=== PATIENT | male | born 1955 | race Caucasian/White ===

== ENCOUNTER 2023-01-21 07:07 | Outpatient (OUT) | payer BC, SELFPAY ==
[2023-01-21 07:20] LABS: Basophils Percent Auto 0.3 % (0.2-2.0); Eosinophils Absolute Auto 0.2 10^3/uL (0.0-0.7); Eosinophils Percent Auto 2.6 % (0.9-7.0); Hemoglobin 14.5 g/dL (14.0-18.0); Immature Granulocytes Abs Auto 0.02 10^3/uL (0.00-0.03); Immature Granulocytes Pct Auto 0.3 % (0.0-0.5); Lymphocytes Absolute Auto 1.7 10^3/uL (1.2-3.8); Mean Corpuscular HGB Conc 33.7 g/dL (29.9-35.2); Mean Corpuscular Hemoglobin 31.8 pg (25.9-34.0); Mean Corpuscular Volume 94.3 fL (80.0-94.0); Mean Platelet Volume 8.4 fL (9.5-13.5); Monocytes Absolute Auto 0.8 10^3/uL (0.3-0.8); Monocytes Percent Auto 11.1 % (1.7-12.0); Neutrophils Absolute Auto 4.8 10^3/uL (1.4-6.5); Neutrophils Percent Auto 63.7 % (43.0-75.0); Platelet Count 248 10^3/uL (150-450); Red Blood Count 4.56 10^6/uL (4.70-6.10); Red Cell Distribution Width 13.2 % (11.0-15.0); White Blood Count 7.6 10^3/uL (4.0-11.0)
[2023-01-21 07:32] LABS: Estimated Average Glucose 123 mg/dL; Glycohemoglobin A1C 5.9 % (4.5-6.2)
[2023-01-21 07:41] LABS: Alanine Aminotransferase 45 U/L (16-63); Albumin Globulin Ratio 1.2; Albumin Level 3.8 g/dL (3.4-5.0); Alkaline Phosphatase 73 U/L (46-116); Anion Gap 8.8; Aspartate Amino Transferase 33 U/L (15-37); BUN Creatinine Ratio 16.5; Bilirubin Total 0.5 mg/dL (0.2-1.0); Calcium 8.6 mg/dL (8.5-10.1); Carbon Dioxide 31.6 mmol/L (21.0-32.0); Chloride 103 mmol/L (98-107); Chol HDL Ratio 2.8; Cholesterol 123 mg/dL (<=200); Estimated GFR (African America >60 (>=60); Estimated GFR (Non-African Ame >60 (>=60); Globulin 3.2 g/dL; Glucose 123 mg/dL (74-106); HDL Cholesterol 44 mg/dL (40-60); LDL Cholesterol Calculated 54.8 mg/dL; Potassium 4.4 mmol/L (3.5-5.1); Sodium 139 mmol/L (136-145); Triglycerides 121 mg/dL (<=150); VLDL CHOLESTEROL 24.2 mg/dL
== END 2023-01-21 07:08 | disposition home or self-care (01) ==
LOC: LAB 07:07
PROVIDERS: PCP Internal Medicine; Visit Provider Internal Medicine
DX: E11.9 Type 2 diabetes mellitus without complications (principal); E78.5 Hyperlipidemia, unspecified; E55.9 Vitamin D deficiency, unspecified
CPT/HCPCS: 36415; 80053; 80061; 82306; 83036; 85025

== ENCOUNTER 2023-05-18 07:38 | Outpatient (OUT) | payer MEDICARE, OTHER, SELFPAY ==
[2023-05-18 08:46] LABS: Prostate Specific Antigen Dx 1.25 ng/mL (<=4.00)
== END 2023-05-18 07:39 | disposition home or self-care (01) ==
PROVIDERS: PCP Internal Medicine
DX: C61 Malignant neoplasm of prostate (principal)
CPT/HCPCS: 36415; 84153

== ENCOUNTER 2023-06-12 12:48 | Outpatient (OUT) | payer MEDICARE, OTHER, SELFPAY ==
--- NOTE | 2023-06-12 13:30 | CA_ITS ---
Patient Name: BASILIO PARRA MR#: [id number] : 1955 Exam Date: 06/12/2023 Ordering Doctor: DR BERRY FISHER M.D. ECHOCARDIOGRAM REPORT PROCEDURE: CA ECHO DOPPLER COMPLETE INDICATIONS: Mitral valve regurgitation COMPARISON: None. DESCRIPTION: COMPLETE ECHOCARDIOGRAM Real-time transthoracic echocardiography with 2D, M-mode, spectral and color flow Doppler performed. QUALITY: Technical quality was good. 67 , 215#, BSA 2.09 m2 LEFT VENTRICLE: Normal chamber size. Mildly increased left ventricular wall thickness. LV EF: Global left ventricular systolic function is hyperdynamic; visually estimated ejection fraction is 65 to 70%. No significant wall motion abnormalities. DIASTOLIC: Normal diastolic function. ATRIAL SEPTUM: Visually appears intact. LEFT ATRIUM: Normal chamber size. RIGHT ATRIUM: Normal chamber size. RIGHT VENTRICLE: Normal chamber size. Normal right ventricular systolic function. TRICUSPID VALVE: Normal mobility and thickness. No stenosis with trivial regurgitation. MITRAL VALVE: Mildly thickened with normal mobility. No evidence of mitral valve stenosis. There is no mitral annular calcification. No mitral regurgitation. AORTIC VALVE: Normal aortic valve. No visible sclerosis. Normal leaflet mobility. No evidence of aortic valve stenosis. Trivial aortic regurgitation. AORTIC ROOT: Normal diameter and appearance. PULMONIC VALVE: Normal thickness and mobility. No stenosis. No regurgitation. PERICARDIUM: No evidence of pericardial effusion. IVC: Collapses with inspirations. IVC is normal in size. CONCLUSION: 1. Global left ventricular systolic function is hyperdynamic; visually estimated ejection fraction is 65 to 70% 2. Normal right ventricular size and systolic function 3. Mild increased left ventricular wall thickness 4. Normal diastolic function 5. No significant valvular abnormalities Adult Echocardiography Procedure Report Left Ventricle LVEDD (3.7 - 5.6 cm): 4.75 cm LVESD (2.2 - 4.0 cm): 3.22 cm LVIVS thickness (0.6 - 1.2 cm): 1.27 cm LVPW thickness (0.5 - 1.0 cm): 1.12 cm e': 0.17 m/s E - e': 3.63 LVOT Max Gradient: 2.71 mm[Hg] LVOT Area (cm2): 0.82 m/s Peak Velocity (LVOT): 0.82 m/s Mean Velocity (LVOT): 0.54 m/s LVOT Diameter 2.73 cm Left Atrium LA Volume Index (2D A2C): 27.66 ml/m2 Left Atrium Systolic Dimension: 3.81 cm Mitral Valve MV E to A Ratio: 1, 1.02 Mitral Valve A-Wave Peak Velocity: 0.60 m/s Mitral Valve E-Wave Peak Velocity: 0.61 m/s Right Ventricle Aorta AO Root Diam: 3.68 cm Ascending Ao Diam: 3.61 cm Aortic Valve AoV Area (Peak Con): 3.89 cm2, 3.89 cm2 AoV Area (VTI): 4.40 cm2, 4.40 cm2 Peak Velocity(Antegrade Flow): 1.23 m/s Peak Gradient(Antegrade Flow): 6.09 mm[Hg] Mean Velocity(Antegrade Flow): 0.74 m/s Mean Gradient(Antegrade Flow): 2.67 mm[Hg] Velocity Time Integral: 22.04 cm Tricuspid Valve Pulmonic Valve Peak Velocity: 1.21 m/s Peak Gradient: 5.24 mm[Hg], 6.55 mm[Hg] Right Atrium Right Atrium Systolic Pressure: 27.28 ml, 27.28 ml Dictated by: Berry Fisher M.D. on 06/12/2023 at 16:08 Approved by: Berry Fisher M.D. on 06/12/2023 at 16:12
== END 2023-06-12 12:49 | disposition home or self-care (01) ==
LOC: CARD 12:48
PROVIDERS: PCP Internal Medicine; Visit Provider Internal Medicine Interventional Cardiology
DX: I34.0 Nonrheumatic mitral (valve) insufficiency (principal)
CPT/HCPCS: 93306

== ENCOUNTER 2023-07-30 06:59 | Outpatient (OUT) | payer MEDICARE, OTHER, SELFPAY ==
--- OUTSIDE RECORDS SUMMARY | 2023-07-30 07:02 | XMS_ITS | CCD ---
Author Name Unknown Address [address] [facility] [address] [place] [address] Organization [facility] Care Team Providers Care Atm Servicer Name Role Phone ANNETTE SHAH Unavailable Unavailable ANNETTE SHAH Unavailable Unavailable Erin Minaya Unavailable Unavailable Rei, Erin Unavailable Unavailable , GEORGE Unavailable Unavailable ANNETTE SHAH Primary Care Unavailable ANNETTE SHAH Referring Unavailable ELTAHAWY, EHAB A Admitting Unavailable IVETT, EHAB A Attending Unavailable Annette Shah MD Primary Care Provider Annette Callaway II Unavailable Annette Shah MD Primary Care Provider MD Annette Shah Primary Care Provider MD Annette Callaway II Attending Provider MD Preston Tejada Attending Provider Preston Tejada Unavailable Annette Shah MD Primary Care Provider DR ANNETTE SHAH Admitting Unavailable UMAIR, DR BRYANT Attending Unavailable UMAIR, DR BRYANT Primary Care Unavailable UMAIR, DR BRYANT Consulting Unavailable UMAIR, DR BRYANT Admitting Unavailable UMAIR, DR BRYANT Attending Unavailable UMAIR, DR BRYANT Primary Care Unavailable UMAIR, DR BRYANT Consulting Unavailable MISC, DR BURRELL Admitting Unavailable MISC, DR BURRELL Attending Unavailable UMAIR, DR BRYANT Primary Care Unavailable UMAIR, DR BRYANT Consulting Unavailable MISC, DR BURRELL Admitting Unavailable MISC, DR BURRELL Attending Unavailable UMAIR, DR BRYANT Primary Care Unavailable MISC, DR BURRELL Consulting Unavailable ELTAHAWEsme, DR VANESSA Consulting Unavailable RON MCCORMICK Admitting Unavailable RON MCCORMICK Attending Unavailable UMAIR, DR BRYANT Primary Care Unavailable CLEARWATER, DR KEN Dunlap Consulting Unavailable RON MCCORMICK Consulting Unavailable JACE, RON Admitting Unavailable JACE, RON Attending Unavailable UMAIR, DR BRYANT Primary Care Unavailable SAL, DR CHAPIS Campbell Consulting Unavailable JACE, RON Consulting Unavailable UMAIR, DR BRYANT Admitting Unavailable HILL, DR BRYANT Attending Unavailable HILL, DR BRYANT Primary Care Unavailable HILL, DR BRYANT Consulting Unavailable HILL, DR BRYANT Admitting Unavailable HILL, DR BRYANT Attending Unavailable HILL, DR BRYANT Primary Care Unavailable HILL, DR BRYANT Consulting Unavailable REQUEST, DR CASTILLO LISTED Admitting Unavaila ble REQUEST, DR CASTILLO LISTED Attending Unavaila ble UMAIR, DR BRYANT Primary Care Unavailable REQUEST, DR CASTILLO LISTED Consulting Unavaila Preston Trimble Attending Unavailable Terrell, Preston Lawrence Admitting Unavailable Umair, Annette Primary Care Unavailable JEVON ZAMBRANO Attending Unavailab jean-pierre SHAH, ANNETTE GUZMAN Primary Care Unavailable GIANA PASTRANA Referring Unavailable GIANA PASTRANA Attending Unavailable UMAIR, ANNETTE GUZMAN Primary Care Unavailable IVETT, BERRY Attending Julissa CARDENAS JR., YEIMI Otero Attending Unavaila briaan CARDENAS JR., YEIMI Otero Referring Unavaila Annette Alonzo MD Primary Care Provider [phone] Medications Current Medications Medication Drug Class(es) Dates Sig (Normalized) Sig (Original) acetaminophen 500 mg oral tablet (3 sources) Start: 03-26-2018 take 2 tablets by mouth twice daily Acetaminophen (Acetaminophen Extra Strength) 500 mg Tablet Active 1000 MG PO Twice daily March 26, 2018 12:00am acetaminophen (T ylenol Extra Strength) 500 MG tablet every 6 (six) hours. 0 Active amoxicillin 500 mg oral capsule (1 source) Penicillin-class Antibacterial Start: 11-22-2022 amoxicillin (Amoxil) 500 MG capsule Indications: Prophylactic antibiotic TAKE 4 CAPSULES BY MOUTH 45 MINUTES TO 1 HOUR PRIOR TO DENTAL PROCEDURE 4 capsule 3 11/22/2022 Active ascorbic acid 250 mg chewable tablet (5 sources) Vitamin C Start: 03-24-2020 take 1 tablet by mouth once daily Ascorbic Acid (Vitamin C) (Vitamin C) 250 mg Tablet,Chewable Active 250 MG PO Daily March 24, 2020 12:00am Vitamin C Active Aspirin (3 sources) Platelet Aggregation Inhibitor, Nonsteroidal Anti-inflammatory Drug Aspirin 81 Active atorvastatin 80 mg oral tablet (4 sources) HMG-CoA Reductase Inhibitor take 1 tablet by mouth at bedtime atorvastatin (Lipitor) 80 MG tablet Take 80 mg by mouth at bedtime. 0 Active cholecalciferol 0.05 mg oral tablet (3 sources) Vitamin D Start: 2019 take 1 tablet by mouth once daily Cholecalciferol (Vitamin D3) (Vitamin D3) 50 mcg (2,000 unit) Tablet Active 2000 UNIT PO Daily March 24, 2020 12:00am take [address] [facility] once in the morning Cholecalciferol (Vitamin D) 50 MCG (2000 UT) capsule Take 1 capsule by mouth in the morning. 0 Active chondroitin sulfates 200 mg / glucosamine hydrochloride 250 mg oral tablet (2 sources) Start: 03-24-2020 take 1 tablet by mouth once daily Glucosamine-Chondroitin (Osteo Bi-Flex) 250-200 mg Tablet Active 1 TAB PO Daily March 24, 2020 12:00am diclofenac sodium 75 mg delayed release oral tablet (14 sources) Nonsteroidal Anti-inflammator y Drug Start: 01-09-2023 take 1 tablet by mouth twice daily at mealtime diclofenac (Voltaren) 75 MG EC tablet Indications: Primary generalized (osteo)arthritis TAKE 1 TABLET BY MOUTH WITH FOOD OR MILK TWICE DAILY 180 tablet 3 01/09/2023 Active Start: 04-16-2019 End: 04-09-2020 take 1 tablet by mouth every twelve hours as needed diclofenac, EC, (VOLTAREN) 75 mg EC tablet Take 1 tablet by mouth twice daily as needed. 3 04/16/2019 Active Diclofenac Activ e Comment on above: Take 1 tablet by radha twice daily as needed. docusate sodium 100 mg oral capsule (9 sources) take 1 capsule by mouth in the morning docusate sodium (Colace) 100 MG capsule Take 1 capsule by mouth in the morning and 1 capsule before bedtime. 0 Active Comment on above: Take 100 mg by mouth twice daily. folic acid 1 mg / polysaccharide iron complex 150 mg / vitamin b12 0.025 mg oral capsule (2 sources) Vitamin B12 Start: take 1 capsule by mouth once daily in the morning Iron Ps [id number] Acid (Poly-Iron 150 Forte) 150-25-1 mg-mcg-mg capsule Active 1 CAP PO Every morning March 24, 2020 12:00am iv contrast (will be provided with radiology test) (1 source) Start: End: iv contrast (will be provided with radiology test) MRI Prostate Inject, intravenously, once for 1 dose. No IV access, insert saline lock prior to the beginning of sedation, infusion, injection of imaging exam. Discontinue saline lock post exam. If Pt. has a central line or IVAD, may access for administration according to line specific nursing protocol. Once exam is complete flush line and de-access according to line specific nursing protocol in the MR contrast administration guidelines link. 1 Each 0 05/22/2023 05/23/2023 Active Comment on above: MRI Prostate Inject, intravenously, once for 1 dose. No IV access, insert saline lock prior to the beginning of sedation, infusion, injection of imaging exam. Discontinue saline lock post exam. If Pt. has a central line or IVAD, may access for administration according to line specific nursing protocol. Once exam is complete flush line and de-access according to line specific nursing protocol in the MR contrast administration guidelines link. methocarbamol 750 mg oral tablet (1 source) Muscle Relaxant Start: 023 take 1 tablet by mouth three times daily as needed for muscle spasms methocarbamol (Robaxin) 750 MG tablet Indications: Spasm of muscle of lower back Take 1 tablet (750 mg) by mouth 3 (three) times a day as needed for muscle spasms. 60 tablet 1 03/12/2023 Active 24 hr metoprolol succinate 25 mg extended release oral tablet (4 sources) beta-Adrenergic Gunner take 1 tablet by mouth every twenty-four hours in the morning metoprolol succinate XL (Toprol XL) 25 MG 24 hr tablet Take 25 mg by mouth in the morning. 0 Active take 1 tablet by radha th every twelve hours Metoprolol Tartrate 25 MG 1 tablet with food Orally Twice a day Active Multiple Minerals-Vitamins (Citracal Plus) tablet (1 source) take 1 tablet by mouth in the morning Multiple Minerals-Vitamins (Citracal Plus) tablet Take 1 tablet by mouth in the morning. 0 Active Multivitamin preparation (3 sources) Multivitamin Act prisca Mv,Ca,Tqz-Qxyc-Cu-Lycope ne (Centrum Men) 8 mg iron- 200 mcg-600 mcg Tablet (2 sources) Start: 018 Mv,Ca,Onn-Xoba-Vk-Lycope ne (Centrum Men) 8 mg iron- 200 mcg-600 mcg Tablet Active 1 TAB PO Daily March 26, 2018 12:00am Nut.Tx.Gluc.Intol,Lac-Fr ee,Soy (Glucerna) Liquid (2 sources) Start: Nut.Tx.Gluc.Intol,Lac-Fr ee,Soy (Glucerna) Liquid Active 1 EACH PO Daily March 24, 2020 12:00am omeprazole 20 mg delayed release oral capsule (14 sources) Proton Pump Inhibitor Start: 023 take 1 capsule by mouth once daily omeprazole (PriLOSEC) [address] capsule Indications: Gastroesophageal reflux disease without esophagitis TAKE 1 CAPSULE BY MOUTH EVERY DAY 90 capsule 3 06/10/2023 Active Start: 04-01-2019 take 1 capsule by mo uth once daily omeprazole (PRILOSEC) 20 mg capsule Take 20 mg by mouth once daily. 3 04/01/2019 Active take 2 capsules by m outh every twenty-four hours Omeprazole 20 MG 2 capsules Orally Once a day Active Comment on above: Take 20 mg by mouth once daily. polyethylene glycol 3350 47123 mg powder for oral solution (12 sources) Osmotic Laxative take 17 g by mouth every twenty-four hours as needed polyethylene glycol, PEG, 3350 (MiraLax) 17 GM/SCOOP powder Take 17 g by mouth Daily as needed. 0 Active MiraLax Active Comment on above: Take by mouth once d aily. Semaglutide,0.25 or 0.5MG/DOS, (Ozempic, 0.25 or 0.5 MG/DOSE,) 2 MG/3ML solution pen-injector (1 source) Start: Semaglutide,0.25 or 0.5MG/DOS, (Ozempic, 0.25 or 0.5 MG/DOSE,) 2 MG/3ML solution pen-injector Indications: Type 2 Diabetes Mellitus , one pre filled pen Inject 0.5 mg under the skin 1 (one) time per week 9 mL 3 06/11/2023 Active sennosides, [facility] 8.6 mg oral tablet (2 sources) Start: 018 take 1 tablet by mouth twice daily Sennosides (Senna) 8.6 mg Tablet Active 8.6 MG PO Twice daily January 10, 2018 12:00am sildenafil 100 mg oral tablet (14 sources) Phosphodiesterase 5 Inhibitor Start: 07-31-2 019 take 1 tablet by mouth every twenty-four hours as needed sildenafil (Viagra) 100 MG tablet Take 100 mg by mouth Daily as needed. 0 01/22/2022 Active Comment on above: Take 100 mg by mouth once daily. traMADol hydrochloride 50 mg oral tablet (3 sources) Opioid Agonist take 1 tablet by mouth every six hours traMADol HCl 50 MG 1 tablet as needed Orally every 6 hrs Active triamcinolone acetonide 1 mg/ml topical cream (4 sources) Corticosteroid Start: triamcinolone (Kenalog) 0.1 % cream APPLY TO LOWER LEGS TWICE DAILY UNTIL CLEAR, THEN USE NEEDED FOR ITCH 0 03/27/2022 Active Start: 09-13-2016 Kenalog -40 mg Aug, Vitamin D (3 sources) Vitamin D Active Completed/Discontinued Medications Medication Drug Class(es) Dates Sig (Normalized) Sig (Original) ALPRAZolam 0.25 mg oral tablet (13 sources) Benzodiazepine Start: 07-23-2019 take 1 tablet by mouth once daily ALPRAZolam (XANAX) 0.25 mg tablet Take 1 tablet by mouth once daily. 0 07/23/2019 Active Start: 04-14-2018 take 1 tablet by radha th twice daily Alprazolam (Xanax) 0.25 mg Tablet Active 0.25 MG PO Twice daily April 14, 2018 12:00am Start: 04-15-2017 End: 04-02-2018 take 0.25 mg by mouth twice daily Alprazolam Discontinued 0.25 MG PO Twice daily April 15, 2017 12:00am April 02, 2018 2:56pm take 1 tablet by radha th twice daily as needed for anxiety ALPRAZolam (Xanax) 0.5 MG tablet Take 0.5 mg by mouth 2 (two) times a day as needed for anxiety. 0 Active Comment on above: Take 1 tablet by radha th once daily. calcium carbonate 1500 mg oral tablet (13 sources) Start: 03-26-2018 take 1 tablet by mouth once daily calcium carbonate (CALTRATE) 600 mg calcium (1,500 mg) tab Take 1 tablet by mouth once daily. 0 03/26/2018 Active Caltrate 600 Act prisca Comment on above: Take 1 tablet by radha th once daily. cephalexin 500 mg oral capsule (3 sources) Cephalosporin Antibacterial Start: 04-12-2022 End: 04-12-2022 cephALEXin 500 mg cap(s) (KEFLEX) Start: 04-03-2018 End: 04-14-2018 take 1 capsule by mouth every eight hours Cephalexin (Keflex) 500 mg capsule Discontinued 500 MG PO Q8H April 03, 2018 12:00am April 14, 2018 11:05am cetirizine hydrochloride 10 mg oral tablet (14 sources) Histamine-1 Receptor Antagonist Start: 04-15-2017 take 1 tablet by mouth once daily cetirizine (ZYRTEC) 10 mg tablet Take 10 mg by mouth once daily. 0 04/15/2017 Active Zyrtec 1 tab Ora l Active Comment on above: Take 10 mg by mouth once daily. cyclobenzaprine hydrochloride 10 mg oral tablet (2 sources) Muscle Relaxant Start: End: take 10 mg by mouth three times daily Cyclobenzaprine Discontinued 10 MG PO Three times daily April 03, 2018 12:00am March 24, 2020 11:39am diclofenac sodium 75 mg / miSOPROStol 0.2 mg delayed release oral tablet (2 sources) Nonsteroidal Anti-inflammatory Drug, Prostaglandin E1 Analog Start: End: take 1 tablet by mouth twice daily Diclofenac-Misoprosto l Discontinued 1 TAB PO Twice daily April 15, 2017 12:00am April 03, 2018 4:41pm gabapentin 300 mg oral capsule (2 sources) Anti-epileptic Agent Start: End: take 3 capsules by mouth three times daily Gabapentin (Neurontin) 300 mg Capsule Discontinued 900 MG PO Three times daily March 26, 2018 12:00am March 24, 2020 11:39am glucosamine/chondr wise A sod (OSTEO BI-FLEX ORAL) (7 sources) End: glucosamine/chondr wise A sod (OSTEO BI-FLEX ORAL) Take by mouth. 0 10/26/2022 Discontinued glucosamine/carlos dr wise A sod (OSTEO BI-FLEX ORAL) Take by mouth. 0 Active Comment on above: Take by mouth. hyaluronate (15 sources) Start: 06-11-2018 Euflexxa 2017 2 mL Start: 06-04-2018 Euflexxa 2017 2 mL Start: 05-28-2018 Euflexxa 2017 2 mL Start: 01-24-2017 Supartz Jan Start: 01-17-2017 Supartz Dec methylPREDNISolone (9 sources) Corticosteroid Start: 12-31-2019 Depo-Medrol 40 mg Dec, 1 mL Start: 12-18-2019 Depo-Medrol 40 mg Nov, 1 mL Start: 05-08-2018 Depo-Medrol 40 mg Apr, 40 mg morphine sulfate 15 mg extended release oral tablet (2 sources) Opioid Agonist Start: 04-03-2018 End: 04-14-2018 take 1 tablet by mouth every twelve hours Morphine (Ms Contin) 15 mg tablet extended release Discontinued 15 MG PO Q12H 14 April 03, 2018 April 14, 2018 11:05am take w/enough water to swallow whole; do not crush/dissolve/chew/cut/break multivit-mins /iron/folic/l ycop (MV,CA,MIN-IR FH-QZ-RYUREKA E ORAL) (7 sources) Start: 03-26-2018 End: 10-26-2022 take 1 tablet by mouth once daily multivit-mins/iron/folic/lycop (MV,CA,MHS-JPLF-UA-LYCOPENE ORAL) Take 1 tablet by mouth once daily. 0 03/26/2018 10/26/2022 Discontinued Start: 03-26-2018 take 1 tablet by radha th once daily multivit-mins/iron/folic/lycop (MV,CA,SNA-EYDY-KX-LYCOPENE ORAL) Take 1 tablet by mouth once daily. 0 03/26/2018 Active Comment on above: Take 1 tablet by radha th once daily. oxyCODONE hydrochloride 5 mg oral tablet (2 sources) Opioid Agonist Start: 04-03-20 End: 03-24-20 take 1 tablet by mouth every six hours Oxycodone (Roxicodone) 5 mg Tablet Discontinued 1 - 2 TAB PO Q6H April 03, 2018 March 24, 2020 11:40am Prednisone (2 sources) Start: 04-03-20 End: 03-24-20 Prednisone Discontinued 1 dose pk PO per package directions April 03, 2018 12:00am March 24, 2020 11:40am take 4 tabs for 3 days then take 3 tabs for 3 days then take 2 tabs for 3 days then take 1 tab for 3 days rivaroxaban 20 mg oral tablet (2 sources) Factor Xa Inhibitor Start: 04-14-20 End: 03-24-20 take 1 tablet by mouth once at dinner Rivaroxaban (Xarelto) 15 mg (42)- 20 mg (9) tablets,dose pack Discontinued 0 PO per package directions 51 April 14, 2018 12:00am March 24, 2020 11:41am PO PER PKG DIR must administer with evening meal simvastatin 20 mg oral tablet (12 sources) HMG-CoA Reductase Inhibitor Start: 04-15-20 End: 10-27-19 take 1 tablet by mouth once daily simvastatin (ZOCOR) 20 mg tablet Take 20 mg by mouth once daily. 0 04/15/2017 10/26/2022 Discontinued Comment on above: Take 20 mg by mouth once daily. sulfamethoxazole 400 mg / trimethoprim 80 mg oral tablet (2 sources) Dihydrofolate Reductase Inhibitor Antibacterial, Sulfonamide Antimicrobial Start: 04-14-20 End: 03-24-20 take 1 tablet by mouth once daily Sulfamethoxazole-Tr imethoprim (Bactrim) 400-80 mg Tablet Discontinued 1 TAB PO Daily April 14, 2018 12:00am March 24, 2020 11:41am SUPARTZ FX SODIUM HYALURONATE (9 sources) Start: 01-11-20 17 SUPARTZ FX SODIUM HYALURONATE Dec, 25 mg Start: 01-03-2017 SUPARTZ FX SOD IUM HYALURONATE Dec, 25 Start: 12-27-2016 SUPARTZ FX SOD IUM HYALURONATE Dec, 25 zolpidem tartrate 5 mg oral tablet (11 sources) gamma-Aminobutyric Acid-ergic Agonist Start: 07-23-2019 zolpidem (AMBIEN) 5 mg tablet Take 1 tablet by mouth as needed. 0 07/23/2019 Active Start: 03-26-2018 take 1 tablet by radha th once daily at bedtime Zolpidem (Ambien) 10 mg Tablet Active 10 MG PO Daily at bedtime March 26, 2018 12:00am Comment on above: Take 1 tablet by radha th as needed. Problems Active Problems Problem Classification Problem Date Documented Date Episodic/Chronic Acute posthemorrhagic anemia (2 sources) Anemia following acute postoperative blood loss; Translations: [Acute posthemorrhagic anemia] 04-08-2020 Episodic Anxiety disorders (4 sources) Generalized anxiety disorder; Translations: [Generalized anxiety disorder] Onset: 11-19-2022 11-19-2022 Chronic Coagulation and hemorrhagic disorders (9 sources) Factor V Leiden mutation; Translations: [Activated protein C resistance] Onset: 05-25-2022 08-20-2019 Chronic Coronary atherosclerosis and other heart disease (3 sources) Atherosclerotic heart disease of [place] coronary artery without angina pectoris; Translations: [Coronary arteriosclerosis] Onset: 11-19-2022 Chronic Disorders of lipid metabolism (17 sources) Hyperlipidemia; Translations: [Hyperlipidemia, unspecified] Onset: 01-24-2022 08-20-2019 Chronic Esophageal disorders (6 sources) Gastroesophageal reflux disease; Translations: [Gastro-esophageal reflux disease without esophagitis] Onset: 11-19-2022 04-15-2017 Chronic Essential hypertension (1 source) Essential hypertension; Translations: [Essential (primary) hypertension] Onset: 01-18-2023 01-18-2023 Chronic Fracture of lower limb (4 sources) Closed fracture of metatarsal bone; Translations: [Fracture of unspecified metatarsal bone(s), unspecified foot, initial encounter for closed fracture] Onset: 11-10-2021 Episodic Miscellaneous mental health disorders (1 source) Primary insomnia; Translations: [Primary insomnia] Onset: 11-19-2022 01-18-2023 Chronic Nutritional deficiencies (4 sources) Vitamin D deficiency; Translations: [Vitamin D deficiency, unspecified] Onset: 11-19-2022 11-19-2022 Chronic Osteoarthritis (20 sources) Osteoarthritis of knee; Translations: [Unilateral primary osteoarthritis, right knee] Onset: 11-06-2021 Chronic Other acquired deformities (2 sources) Acquired spondylolisthesis; Translations: [Spondylolisthesis, lumbosacral region] 04-03-2018 Episodic Other acquired deformities (2 sources) Spondylolisthesis, lumbar region Onset: 03-08-2022 Resolved: 03-08-2022 Episodic Other connective tissue disease (2 sources) History of total knee arthroplasty; Translations: [Presence of right artificial knee joint] 04-08-2020 Chronic Other connective tissue disease (2 sources) Arthrodesis status Onset: 09-15-2022 Resolved: 03-08-2022 Episodic Other fractures (1 source) Stress fracture, unspecified site, subsequent encounter for fracture with routine healing; Translations: [M84.30XD - Stress fracture, unspecified site, subsequent encounter for fracture with routine healing] Onset: 06-11-2018 Episodic Other nutritional; endocrine; and metabolic disorders (8 sources) Obese class II; Translations: [Obesity, unspecified] Onset: 05-22-2019 05-22-2019 Chronic Other nutritional; endocrine; and metabolic disorders (4 sources) Morbid obesity; Translations: [Morbid (severe) obesity due to excess calories] Onset: 11-19-2022 11-19-2022 Chronic Other screening for suspected conditions (not mental disorders or infectious disease) (7 sources) Patient encounter status; Translations: [Encounter for screening for malignant neoplasm of colon] Onset: 10-03-2022 04-15-2017 Episodic Other upper respiratory disease (4 sources) Allergic rhinitis; Translations: [Allergic rhinitis, unspecified] Onset: 11-19-2022 11-19-2022 Chronic Residual codes; unclassified (3 sources) Insomnia; Translations: [Insomnia, unspecified] Episodic Spondylosis; intervertebral disc disorders; other back problems (2 sources) Spinal stenosis of lumbar region; Translations: [Spinal stenosis, lumbar region without neurogenic claudication] 04-03-2018 Episodic Unclassified (2 sources) Shortness of breath / R06.02(ICD-9) Onset: 02-06-2017 Unclassified (1 source) Abnormal findings on diagnostic imaging of limbs / R93.6(ICD-9) Onset: 02-06-2017 Unclassified (1 source) Family hx of ischem heart dis and oth dis of the circ sys / Z82.49(ICD-9) Onset: 02-06-2017 Unclassified (1 source) Personal history of other venous thrombosis and embolism / Z86.718(ICD-9) Onset: 02-06-2017 Unclassified (1 source) Pure hypercholesterolemia, unspecified / E78.00(ICD-9) Onset: 02-06-2017 Unclassified (2 sources) CONTACT W/AND (SUSP) EXPOS COVID-19; Translations: [CONTACT W/AND (SUSP) EXPOS COVID-19] Onset: 02-09-2022 Unclassified (1 source) Spondylolisthesis, lumbar region; Translations: [Spondylolisthesis, lumbar region] Onset: 03-04-2023 Viral infection (1 source) COVID-19; Translations: [COVID-19] Onset: 02-09-2022 Past or Other Problems Problem Classification Problem Date Documented Da te Episodic/Chronic Allergic reactions (4 sources) Chronic idiopathic urticaria; Translations: [Idiopathic urticaria] Onset: 11-19-2022 Resolved: 01-18-2023 01-18-2023 Episodic Cancer of prostate (20 sources) Malignant tumor of prostate; Translations: [Malignant neoplasm of prostate] Onset: 11-23-2021 Resolved: 01-18-2023 Chronic Cancer of prostate (1 source) History of malignant neoplasm of prostate; Translations: [Personal history of malignant neoplasm of prostate] Onset: 07-13-2020 01-18-2023 Episodic Diabetes mellitus without complication (9 sources) Prediabetes; Translations: [Other abnormal glucose] Onset: 01-19-2022 Episodic Other acquired deformities (7 sources) Lumbar spondylolisthesis; Translations: [Spondylolisthesis , lumbar region] Onset: 11-19-2022 11-19-2022 Episodic Other aftercare (4 sources) Other skilled nursing (current) drug therapy; Translations: [OTH ASSISTED 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 THERAPY] Onset: 05-23-2022 Episodic Other bone disease and musculoskeletal deformities (4 sources) Osteopenia; Translations: [Other specified disorders of bone density and structure, unspecified site] Onset: 11-19-2022 07-24-2023 Episodic Other connective tissue disease (4 sources) Pain in left foot; Translations: [PAIN IN LEFT FOOT] Onset: 11-02-2021 Episodic Other connective tissue disease (1 source) Pain in right foot; Translations: [PAIN IN RIGHT FOOT] Onset: 11-08-2021 Episodic Other lower respiratory disease (1 source) Shortness of breath; Translations: [Shortness of breath] Onset: 02-06-2017 Episodic Other non-traumatic joint disorders (1 source) Pain in left knee Onset: 02-15-2022 Resolved: 02-15-2022 Episodic Phlebitis; thrombophlebitis and thromboembolism (16 sources) H/O: Deep vein thrombosis; Translations: [Personal history of other venous thrombosis and embolism] Onset: 10-11-2021 08-20-2019 Episodic Retinal detachments; defects; vascular occlusion; and retinopathy (1 source) Retinal disorder; 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] Onset: 11-19-2022 Resolved: 01-18-2023 01-18-2023 Chronic Unclassified (1 source) CONTACT W/AND (SUSP) EXPOS COVID-19; Translations: [CONTACT W/AND (SUSP) EXPOS COVID-19] Onset: 02-08-2022 Results Test Name Value Interpretation Reference Range Facility Office Visiton 05-30-2023 Follow-up visit [id number] Roma Parra 1955 M Date Provider Department Center 05/30/2023 Joshua-BERRY [facility] Family History Problem Relation Age of Onset Sick sinus syndrome Father Other Other Family Status - Relation Status Age at Father Other Level of Service:[id number] MD OFFICE/OUTPATIENT ESTABLISHED LOW MDM 20-29 MIN Normal [facility] XR lumbar spine AP/LAT/FLX/E [facility] 03-04-2023 XR lumbar spine AP/LAT/FLX/EXT [facility] [place] [address] XRay Report Signed Patient: Marco Antonio Parra MR#: [id number] : 1955 Acct:[id number] Age/Sex: 67 / M ADM Date: 03/04/23 Loc: XD Room: Type: [facility] [address] Attending Dr: Preston Tejada MD Copies to: Preston Tejada MD Ordering Provider: Preston Tejada MD Date of Service: 03/04/23 XR/XR lumbar spine AP/LAT/FLX/EXT: 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 COMPARISON: 03/07/2022 FINDINGS: Posterior fusion hardware is redemonstrated from L4 through S1. There is fracture of the fusion screws at S1 similar to the prior exam. Intervertebral fusion body is are present at these levels. There is mild disc height loss throughout otherwise with anterior osteophyte summation. No pathologic movement on flexion or extension. No fracture or subluxation. The sacrum and sacroiliac joints are normal. XR/XR lumbar spine AP/LAT/FLX/EXT IMPRESSION: Unchanged posterior fusion L4-S1 with fracture of the S1 screws. No pathologic movement on flexion or extension. Additional degenerative changes are noted, similar to that seen on the prior exam. Impression dictated by: Mckinley Marti M.D.03/04/2023 7:34 PM Dictation Location: [place] [address] Transcribed By: [facility] 03/04/231933 Dictated By: Mckinley Marti II, MD 03/04/231931 Signed By: 03/04/231933 [facility] GLYCOHEMOGLOBIN A1Con 2022 ADA RECOMMENDATION SEE BELOW Normal [facility] [place] Comment on above: Result Comment: ADA RECOMMENDED LIMIT 4.0 - 6.0 ADA THERAPEUTIC TARGET < 7.0 ACTION SUGGESTED > 7.0 Performed By: #### A 1C #### [facility] [address] [place] [address] Dr. Chari Lantigua Glucose [Mass/Vol] 126 mg/dL Normal [facility] [place] Comment on above: Performed By: #### A 1C #### [facility] [address] [place] [address] [address] Chari Lantigua HbA1c (Bld) [Mass fraction] 6.0 % Normal 4.5-6.2 [facility] Comment on above: Performed By: #### A 1C #### [facility] [address] [place] [address] [address] Chari Lantigua MICROALB CREAT RATIO RANDOMo n 07-21-2022 mALB 3.7 mg/L Normal <=30.0 [facility] Comment on above: Performed By: #### M CRR #### [facility] [address] [place] [address] Dr. Chari Lantigua MALB CR RATIO 14.4 mg/g Normal 0.0-29.9 [facility] Comment on above: Performed By: #### M CRR #### [facility] [address] [place] [address] Dr. Chari Lantigua MALB CR RATIO RANGE SEE BELOW Normal [facility] Comment on above: Result Comment: NO M ICROALBUMINURIA 0-29 MG/G CLINICAL MICROALBUMINURIA 30-300 MG/G MACROALBUMINURIA >300 MG/G Performed By: #### M CRR #### [facility] [address] [place] [address] Dr. Chari Lantigua URINE CREAT 257.81 mg/dL Normal 20.00-300.00 [facility] Comment on above: Performed By: #### M CRR #### [facility] [address] [place] [address] Dr. Chari Lantigua PROF 14(COMP METB)on 023 Albumin [Mass/Vol] 4.0 g/dL Normal 3.4-5.0 [facility] Comment on above: Performed By: #### C BC #### [facility] [address] [place] [address] Dr. Chari Lantigua Albumin/Globulin [Mass ratio] 1.2 {ratio} Normal [facility] Comment on above: Performed By: #### C BC #### [facility] [address] [place] [address] Dr. Chari Lantigua ALP [Catalytic activity/Vol] 83 U/L Normal 46-116 [facility] Comment on above: Performed By: #### C BC #### [facility] [address] [place] [address] Dr. Chari Lantigua ALT [Catalytic activity/Vol] 46 U/L Normal 16-63 [facility] Comment on above: Performed By: #### C BC #### [facility] [address] [place] [address] Dr. Chari Lantigua Anion gap [Moles/Vol] 14.0 mmol/L Normal [facility] Comment on above: Performed By: #### C BC #### [facility] [address] [place] [address] Dr. Chari Lantigau AST [Catalytic activity/Vol] 30 U/L Normal 15-37 [facility] Comment on above: Performed By: #### C BC #### [facility] [address] [address] [address] Chari Lantigua Bilirubin [Mass/Vol] 0.5 mg/dL Normal 0.2-1.0 [facility] Comment on above: Performed By: #### C BC #### [facility] [address] [address] [address] Chari Lantigua Calcium [Mass/Vol] 8.9 mg/dL Normal 8.5-10.1 [facility] Comment on above: Performed By: #### C BC #### [facility] [address] [place] [address] Dr. Chari Lantigua Chloride [Moles/Vol] 104 mmol/L Normal 98-107 [facility] Comment on above: Performed By: #### C BC #### [facility] [address] [place] [address] Dr. Chari Lantigua CO2 [Moles/Vol] 28.7 mmol/L Normal 21.0-32.0 [facility] Comment on above: Performed By: #### C BC #### [facility] [address] [place] [address] Dr. Chari Lantigua Creatinine [Mass/Vol] 0.81 mg/dL Normal 0.70-1.30 [facility] Comment on above: Performed By: #### C BC #### [facility] [address] [place] [address] Dr. Chari Lantigua EGFR-AF NAURUAN >60 Normal >=60 [facility] Comment on above: Performed By: #### C BC #### [facility] [address] [place] [address] Dr. Chari Lantigua EGFR-NON AF NAURUAN >60 Normal >=60 [facility] Comment on above: Performed By: #### C BC #### [facility] [address] [place] [address] Dr. Chari Lantigua Globulin (S) [Mass/Vol] 3.4 g/dL Normal [facility] Comment on above: Performed By: #### C BC #### [facility] [address] [place] [address] Dr. Chari Lantigua Glucose [Mass/Vol] 120 mg/dL Critically high 74-106 [facility] Comment on above: Performed By: #### C BC #### [facility] [address] [place] [address] Dr. Chari Lantigua Potassium [Moles/Vol] 4.7 mmol/L Normal 3.5-5.1 [facility] Comment on above: Performed By: #### C BC #### [facility] [address] [place] [address] Dr. Chari Lantigua Protein [Mass/Vol] 7.4 g/dL Normal 6.4-8.2 [facility] Comment on above: Performed By: #### C BC #### [facility] [address] [place] [address] Dr. Chari Lantigua Sodium [Moles/Vol] 142 mmol/L Normal 136-145 [facility] Comment on above: Performed By: #### C BC #### [facility] [address] [place] [address] Dr. Chari Lantigua Urea nitrogen [Mass/Vol] 21.0 mg/dL Critically high 7.0-18.0 [facility] Comment on above: Performed By: #### C BC #### [facility] [address] [place] [address] Dr. Chari Lantigua Urea nitrogen/Creatinine [Mass ratio] 25.9 mg/mg Normal [facility] Comment on above: Performed By: #### C BC #### [facility] [address] [place] [address] Dr. Chari Lantigua UA RANDOMon 07-21-2022 Bilirubin Ql (U) Negative Normal NEGATIVE [facility] Comment on above: Performed By: #### C BC #### [facility] [address] [place] [address] Dr. Chari Lantigua Clarity (U) CLEAR Normal CLEAR [facility] Comment on above: Performed By: #### C BC #### [facility] [address] [place] [address] Dr. Chari Lantigua Color (U) YELLOW Normal YELLOW [facility] Comment on above: Performed By: #### C BC #### [facility] [address] [place] [address] Dr. Chari Lantigua Glucose Ql (U) Negative Normal NEGATIVE [facility] Comment on above: Performed By: #### C BC #### [facility] [address] [place] [address] Dr. Chari Lantigua Hemoglobin Ql (U) Negative Normal NEGATIVE [facility] Comment on above: Performed By: #### C BC #### [facility] [address] [place] [address] Dr. Chari Lantigua Ketones Ql (U) Negative Normal NEGATIVE [facility] Comment on above: Performed By: #### C BC #### [facility] [address] [place] [address] Dr. Chari Lantigua LEUKOCYTES Negative Normal NEGATIVE [facility] Comment on above: Performed By: #### C BC #### [facility] [address] [place] [address] Dr. Chari Lantigua Nitrite Ql (U) Negative Normal NEGATIVE [facility] Comment on above: Performed By: #### C BC #### [facility] [address] [place] [address] Dr. Chari Lantigua pH (U) 6.0 [pH] Normal 5-9 [facility] Comment on above: Performed By: #### C BC #### [facility] [address] [place] [address] Dr. Chari Lantigua SPEC GRAVITY 1.025 Normal 1.005-<=1.02 5 [facility] Comment on above: Performed By: #### C BC #### [facility] [address] [place] [address] Dr. Chari Lantigua UA PROTEIN Negative Normal NEGATIVE/ TRACE [facility] Comment on above: Performed By: #### C BC #### [facility] [address] [place] [address] Dr. Chari Lantigua Urobilinogen Qn (U) 0.2 {Kyle'U}/dL Normal 0.2 - 1. 0 [facility] Comment on above: Performed By: #### C BC #### [facility] [address] [address] [address] Chari Lantigua PROF CHEM 8 (BAS METB)on Anion gap [Moles/Vol] 11.3 mmol/L Normal [facility] Comment on above: Performed By: #### C BC #### [facility] [address] [place] [address] Dr. Chari Lantigua Calcium [Mass/Vol] 8.8 mg/dL Normal 8.5-10.1 [facility] Comment on above: Performed By: #### C BC #### [facility] [address] [place] [address] Dr. Chari Lantigua Chloride [Moles/Vol] 103 mmol/L Normal 98-107 [facility] Comment on above: Performed By: #### C BC #### [facility] [address] [place] [address] Dr. Chari Lantigua CO2 [Moles/Vol] 29.2 mmol/L Normal 21.0-32.0 [facility] Comment on above: Performed By: #### C BC #### [facility] [address] [place] [address] Dr. Chari Lantigua Creatinine [Mass/Vol] 0.72 mg/dL Normal 0.70-1.30 [facility] Comment on above: Performed By: #### C BC #### [facility] [address] [place] [address] Dr. Chari Lantigua EGFR-AF NAURUAN >60 Normal >=60 [facility] Comment on above: Performed By: #### C BC #### [facility] [address] [place] [address] Dr. Chari Lantigua EGFR-NON AF NAURUAN >60 Normal >=60 [facility] Comment on above: Performed By: #### C BC #### [facility] [address] [place] [address] Dr. Chari Lantigua Glucose [Mass/Vol] 133 mg/dL Critically high 74-106 [facility] Comment on above: Performed By: #### C BC #### [facility] [address] [place], [place] [address] Dr. Chari Lantigua Potassium [Moles/Vol] 4.5 mmol/L Normal 3.5-5.1 [facility] Comment on above: Performed By: #### C BC #### [facility] [address] [place], [place] [address] Dr. Chari Lantigua Sodium [Moles/Vol] 139 mmol/L Normal 136-145 [facility] Comment on above: Performed By: #### C BC #### [facility] [address] [address] [address] Chari Lantigua Urea nitrogen [Mass/Vol] 16.0 mg/dL Normal 7.0-18.0 [facility] Comment on above: Performed By: #### C BC #### [facility] [address] [address] [address] Chari Lantigua Urea nitrogen/Creatinine [Mass ratio] 22.2 mg/mg Normal [facility] Comment on above: Performed By: #### C BC #### [facility] [address] [address] [address] Chari Lantigua SURGICAL PATHOLOGYon 022 Case Report Surgical Pathology Report Case: [id number] Authorizing Provider: Hugo Garcia MD Collected: 04/12/2022 03:25 PM Ordering Location: Urology Received: 04/12/2022 06:53 PM Pathologist: Rc Blake MD Specimens: A) - PROSTATE NEEDLE BIOPSY LEFT, T1-mid anterior TZ x 2 B) - PROSTATE NEEDLE BIOPSY LEFT, anterior x 1 C) - PROSTATE NEEDLE BIOPSY LEFT, posterior x 1 D) - PROSTATE NEEDLE BIOPSY RIGHT, anterior x 3 E) - PROSTATE NEEDLE BIOPSY RIGHT, posterior x 2 [facility] Clinical History elevated PSA [facility] Diagnosis Comment Within parts B and C , left anterior and left posterior, are small foci of atypical glands present. Immunohistochemical staining with PIN 4 cocktail (p63, high molecular weigh cytokeratin, p504s) is performed and shows absent staining with basal cell markers p63 and high molecular weight cytokeratin and weak patchy staining with p504s. While the glands appear atypical, insufficient architectural and/or cytologic atypia is present for a definite diagnosis of carcinoma. Laboratory Developed Test (LDT) Disclaimer: Performance characteristics of immunohistochemical, immunofluorescent and chromogenic in-situ hybridization tests have been determined by the performing laboratory within [facility] s [facility] and Laboratory Medicine [place] ([facility], [facility], [facility] or [facility]) in a manner consistent with CLIA requirements. One or more of these tests have not been cleared or approved by the FDA. [facility] is regulated under CLIA as qualified to perform high-complexity testing. These tests are used for clinical purposes. They should not be regarded as investigational or for research. Positive and negative controls stain appropriately. [facility] FINAL DIAGNOSIS A. Prostate, left mi d anterior transition zone, biopsy: - Prostate tissue with single atypical gland present (atypical small acinar proliferation). B. Prostate, left anterior, biopsy: - Prostate tissue with small focus of atypical glands present (atypical small acinar proliferation). C. Prostate, left posterior, biopsy: - Prostate tissue with small focus of atypical glands present (atypical small acinar proliferation). D. Prostate, right anterior, biopsy: - Benign prostate tissue. E. Prostate, right posterior, biopsy: - Benign prostate tissue. JOLENE/laurie 04/17/2022 [facility] Gross Description A. PROSTATE NEEDLE BIOPSY LEFT Received in alcoholic formalin on Telfa gauze are two segments and two fragments of cylindrical tissue ranging in length from 0.8 cm to 1.4 cm and averaging 0.1 cm in diameter, bae and of a soft and friable consistency. Totally submitted in formalin in one cassette. B. PROSTATE NEEDLE BIOPSY LEFT Received in alcoholic formalin on Telfa gauze is one segment and two fragments of cylindrical tissue measuring 0.7 x 0.1 x 0.1 cm, bae and of a soft and friable consistency. Totally submitted in formalin in one cassette. C. PROSTATE NEEDLE BIOPSY LEFT Received in alcoholic formalin on Telfa gauze is one segment and one fragment of cylindrical tissue measuring 1.4 x 0.1 x 0.1 cm, bae and of a soft and friable consistency. Totally submitted in formalin in one cassette. D. PROSTATE NEEDLE BIOPSY RIGHT Received in alcoholic formalin on Telfa gauze are three segments and multiple fragments of cylindrical tissue ranging in length from 0.5 cm to 0.9 cm and averaging 0.1 cm in diameter, bae and of a soft and friable consistency. Totally submitted in formalin in two cassettes. E. PROSTATE NEEDLE BIOPSY RIGHT Received in alcoholic formalin on Telfa gauze are two segments of cylindrical tissue ranging in length from 1.7 cm to 1.8 cm and averaging 0.1 cm in diameter, bae and of a soft and friable consistency. Totally submitted in formalin in one cassette. Gross examination performed at [facility], [address] [place] [id number] JS 04/12/2022 10:13 PM [facility] Performing Lab Diagnostic interpretation performed at [facility], [address] [place] [address] CLIA# [id number] Shoe Lacer: Gutierrez Jha M.D. [facility] UA DIP, URINE (POC)on 2021 BILIRUBIN UA (POCT) Negative Negative [facility] CLARITY UA (POCT) Clear [facility] COLOR UA (POCT) Yellow [facility] GLUCOSE UA (POCT) Negative Negative mg/dL [facility] HEMOGLOBIN/BLOOD UA (POCT) Negative Negative [facility] KETONE UA (POCT) Negative Negative mg/dL [facility] LEUKOCYTES UA (POCT) Negative Negative [facility] NITRITE UA (POCT) Negative Negative [facility] PH UA (POCT) 6.0 4.5 - 8.0 [facility] Protein Ql (U) Negative Negative mg/dL [facility] SPECIFIC GRAVITY UA (POCT) 1.025 1.005 - 1.030 [facility] UROBILINOGEN UA (POCT) 0.2 E.U./dL Normal E.U./dL [facility] US TRANSRECTAL PROSTATE (ALEXEI S) (POC) JENNIFER USE ONLYon 04-12-2022 [facility] Covid-19 PCR (CVDTBH)on 01-22 SARS-CoV-2 (COVID-19) RNA ILA+probe Ql (Unsp spec) Detected Critically abnormal NOT DETECTED [facility] Comment on above: Result Comment: This test is not yet approved or cleared by the [place] FDA. When there are no FDA-approved or cleared tests available, and other criteria are met, FDA can make tests available under an emergency access mechanism called an Emergency Use Authorization (EUA). The EUA for this test is supported by the Hand Fretted Instrument Maker of Health and Human Service's (HHS's) declaration that circumstances exist to justify the emergency use of in vitro diagnostics for the detection and/or diagnosis of the virus that causes COVID-19. This EUA will remain in effect (meaning this test can be used) for the duration of the COVID-19 declaration justifying emergency of IVDs, unless it is terminated or revoked by FDA (after which the test may no longer be used). Performed By: #### C VDTB #### [facility] [address] [place] [address] Dr. Chari Lantigua INFLUENZA A AND B AGon 02-08 INFLUENZA A AG Negative Normal NEGATIVE SEE COMMENT [facility] Comment on above: Performed By: #### I NFLUAB #### [facility] [address] [place] [address] Dr. Chari Lantigua INFLUENZA B AG Negative Normal NEGATIVE SEE COMMENT [facility] Comment on above: Performed By: #### I NFLUAB #### [facility] [address] [place] [address] Dr. Chari Lantigua INTERNAL CONTROLS Within Normal Limits Normal Wi thin Normal Limits [facility] Comment on above: Performed By: #### I NFLUAB #### [facility] [address] [place] [address] Dr. Chari Lantigua CBC AUTO DIFFon 01-19-2022 BASO # 0.0 103/ul Normal 0.0-0.1 [facility] Comment on above: Performed By: #### C BC #### [facility] [address] [place] [address] Dr. Chari Lantigua Basophils/100 WBC (Bld) 0.3 % Normal 0.2-2.0 [facility] Comment on above: Performed By: #### C BC #### [facility] [address] [place] [address] Dr. Chari Lantigua EO # 0.2 103/ul Normal 0.0-0.7 [facility] Comment on above: Performed By: #### C BC #### [facility] [address] [place] [address] Dr. Chari Lantigua Eosinophils/100 WBC (Bld) 3.1 % Normal 0.9-7.0 [facility] Comment on above: Performed By: #### C BC #### [facility] [address] [place] [address] Dr. Chari Lantigua Erythrocyte distribution width (RBC) [Ratio] 13.2 % Normal 11.0-15.0 [facility] Comment on above: Performed By: #### C BC #### [facility] [address] [place] [address] Dr. Chari Lantigua Hematocrit (Bld) [Volume fraction] 43.4 % Normal 42.0-54.0 [facility] Comment on above: Performed By: #### C BC #### [facility] [address] [place] [address] Dr. Chari Lantigua Hemoglobin (Bld) [Mass/Vol] 14.5 g/dL Normal 14.0-18.0 [facility] Comment on above: Performed By: #### C BC #### [facility] [address] [place] [address] Dr. Chari Lantigua IG # 0.03 10e3/ul Normal 0.00-0.03 [facility] Comment on above: Performed By: #### C BC #### [facility] [address] [place] [address] Dr. Chari Lantigua IG % 0.4 % Normal 0.0-0.5 [facility] Comment on above: Performed By: #### C BC #### [facility] [address] [place] [address] Dr. Chari Lantigua LYMPH # 1.7 103/ul Normal 1.2-3.8 [facility] Comment on above: Performed By: #### C BC #### [facility] [address] [place] [address] Dr. Chari Lantigua Lymphocytes/100 WBC (Bld) 23.1 % Normal 20.5-60.0 [facility] Comment on above: Performed By: #### C BC #### [facility] [address] [place] [address] Dr. Chari Lantigua MANUAL DIFF REQ NO Normal [facility] Comment on above: Performed By: #### C BC #### [facility] [address] [address] [address] Chari Lantigua MCH (RBC) [Entitic mass] 31.3 pg Normal 25.9-34.0 [facility] Comment on above: Performed By: #### C BC #### [facility] [address] [address] [address] Chari Lantigua MCHC (RBC) [Mass/Vol] 33.4 g/dL Normal 29.9-35.2 [facility] Comment on above: Performed By: #### C BC #### [facility] [address] [address] [address] Chari Lantigua MCV (RBC) [Entitic vol] 93.7 fL Normal 80.0-94.0 [facility] Comment on above: Performed By: #### C BC #### [facility] [address] [place] [address] Dr. Chari Lantigua MONO # 0.9 103/ul Critically high 0.3-0.8 [facility] Comment on above: Performed By: #### C BC #### [facility] [address] [address] [address] Chari Lantigua Monocytes/100 WBC (Bld) 12.1 % Critically high 1.7-12.0 [facility] Comment on above: Performed By: #### C BC #### [facility] [address] [place] [address] Dr. Chari Lantigua NEUT # 4.6 103/ul Normal 1.4-6.5 [facility] Comment on above: Performed By: #### C BC #### [facility] [address] [place] [address] Dr. Chari Lantigua Neutrophils/100 WBC (Bld) 61.0 % Normal 43.0-75.0 [facility] Comment on above: Performed By: #### C BC #### [facility] [address] [place] [address] Dr. Chari Lantigua Platelet mean volume (Bld) [Entitic vol] 8.2 fL Critically low 9.5-13.5 [facility] Comment on above: Performed By: #### C BC #### [facility] [address] [address] [address] Chari Lantigua PLT 219 103/ul Normal 150-450 [facility] Comment on above: Performed By: #### C BC #### [facility] [address] [address] [address] Chari Lantigua RBC 4.63 106/ul Critically low 4.70-6.10 [facility] Comment on above: Performed By: #### C BC #### [facility] [address] [address] [address] Chari Lantigua WBC 7.5 103/ul Normal 4.0-11.0 [facility] Comment on above: Performed By: #### C BC #### [facility] [address] [place] [address] Dr. Chari Lantigua GLYCOHEMOGLOBIN A1Con 2021 ADA RECOMMENDATION SEE BELOW Normal [facility] Comment on above: Result Comment: ADA RECOMMENDED LIMIT 4.0 - 6.0 ADA THERAPEUTIC TARGET < 7.0 ACTION SUGGESTED > 7.0 Performed By: #### C BC #### [facility] [address] [place] [address] Dr. Chari Lantigua Glucose [Mass/Vol] 140 mg/dL Normal [facility] Comment on above: Performed By: #### C BC #### [facility] [address] [address] [address] Chari Lantigua HbA1c (Bld) [Mass fraction] 6.5 % Critically high 4.5-6.2 [facility] Comment on above: Performed By: #### C BC #### [facility] [address] [address] [address] Chari Lantigua LIPID PROFILEon 01-19-2022 CHOL-HDL RATIO NORM SEE BELOW Normal [facility] Comment on above: Result Comment: 3.3 - 4.4 LOW RISK 4.4 - 7.1 AVERAGE RISK 7.1 - 11.0 MODERATE RISK >11.0 HIGH RISK Performed By: #### C MP, LIPID #### [facility] [address] [address] [address] Chari Lantigua Cholesterol [Mass/Vol] 139 mg/dL Normal <=200 [facility] Comment on above: Performed By: #### C MP, LIPID #### [facility] [address] [address] [address] Chari Lantigua Cholesterol in HDL [Mass/Vol] 42 mg/dL Normal 40-60 [facility] Comment on above: Performed By: #### C MP, LIPID #### [facility] [address] [address] [address] Chari Lantigua Cholesterol in LDL [Mass/Vol] 71.4 mg/dL Normal [facility] Comment on above: Performed By: #### C MP, LIPID #### [facility] [address] [address] [address] Chari Lantigua Cholesterol.total/C holesterol in HDL [Mass ratio] 3.3 {ratio} Normal [facility] Comment on above: Performed By: #### C MP, LIPID #### [facility] [address] [address] [address] Chari Lantigua HDL NORMAL > or = 60 mg/dl - LO W CARDIOVASCULAR RISK <40 mg/dl - HIGH CARDIOVASCULAR RISK Normal [facility] Comment on above: Performed By: #### C MP, LIPID #### [facility] [address] [address] [address] Chari Lantigua LDL CALC NORMAL SEE BELOW Normal [facility] Comment on above: Result Comment: <100 mg/dl OPTIMAL 100 - 129 mg/dl NEAR OR ABOVE OPTIMAL 130 - 159 mg/dl BORDERLINE HIGH 160 - 189 mg/dl HIGH >190 mg/dl VERY HIGH Performed By: #### C MP, LIPID #### [facility] [address] [address] [address] Chari Lantigua Triglyceride [Mass/Vol] 128 mg/dL Normal <=150 [facility] Comment on above: Performed By: #### C MP, LIPID #### [facility] [address] [address] [address] Chari Lantigua VLDL CALC 25.6 mg/dL Normal [facility] Comment on above: Performed By: #### C MP, LIPID #### [facility] [address] [place] [address] Dr. Chari Lantigua PROF 14(COMP METB)on 022 Albumin [Mass/Vol] 3.6 g/dL Normal 3.4-5.0 [facility] Comment on above: Performed By: #### C MP, LIPID #### [facility] [address] [place] [address] Dr. Chari Lantigua Albumin/Globulin [Mass ratio] 1.2 {ratio} Normal [facility] Comment on above: Performed By: #### C MP, LIPID #### [facility] [address] [place] [address] Dr. Chari Lantigua ALP [Catalytic activity/Vol] 71 U/L Normal 46-116 [facility] Comment on above: Performed By: #### C MP, LIPID #### [facility] [address] [place] [address] Dr. Chari Lantigua ALT [Catalytic activity/Vol] 38 U/L Normal 16-63 [facility] Comment on above: Performed By: #### C MP, LIPID #### [facility] [address] [place] [address] Dr. Chari Lantigua Anion gap [Moles/Vol] 10.3 mmol/L Normal [facility] Comment on above: Performed By: #### C MP, LIPID #### [facility] [address] [place] [address] Dr. Chari Lantigua AST [Catalytic activity/Vol] 26 U/L Normal 15-37 [facility] Comment on above: Performed By: #### C MP, LIPID #### [facility] [address] [place] [address] Dr. Chari Lantigua Bilirubin [Mass/Vol] 0.7 mg/dL Normal 0.2-1.0 [facility] Comment on above: Performed By: #### C MP, LIPID #### [facility] [address] [place] [address] Dr. Chari Lantigua Calcium [Mass/Vol] 8.5 mg/dL Normal 8.5-10.1 [facility] Comment on above: Performed By: #### C MP, LIPID #### [facility] [address] [address] [address] Chari Lantigua Chloride [Moles/Vol] 105 mmol/L Normal 98-107 [facility] Comment on above: Performed By: #### C MP, LIPID #### [facility] [address] [address] [address] Chari Lantigua CO2 [Moles/Vol] 30.3 mmol/L Normal 21.0-32.0 [facility] Comment on above: Performed By: #### C MP, LIPID #### [facility] [address] [address] [address] Chari Lantigua Creatinine [Mass/Vol] 0.77 mg/dL Normal 0.70-1.30 [facility] Comment on above: Performed By: #### C MP, LIPID #### [facility] [address] [place] [address] Dr. Chari Lantigua EGFR-AF NAURUAN >60 Normal >=60 [facility] Comment on above: Performed By: #### C MP, LIPID #### [facility] [address] [place] [address] Dr. Chari Lantigua EGFR-NON AF NAURUAN >60 Normal >=60 [facility] Comment on above: Performed By: #### C MP, LIPID #### [facility] [address] [place] [address] Dr. Chari Lantigua Globulin (S) [Mass/Vol] 3.0 g/dL Normal [facility] Comment on above: Performed By: #### C MP, LIPID #### [facility] [address] [place] [address] Dr. Chari Lantigua Glucose [Mass/Vol] 149 mg/dL Critically high 74-106 [facility] Comment on above: Performed By: #### C MP, LIPID #### [facility] [address] [place] [address] Dr. Chari Lantigua Potassium [Moles/Vol] 4.6 mmol/L Normal 3.5-5.1 [facility] Comment on above: Performed By: #### C MP, LIPID #### [facility] [address] [address] [address] Chari Lantigua Protein [Mass/Vol] 6.6 g/dL Normal 6.4-8.2 [facility] Comment on above: Performed By: #### C MP, LIPID #### [facility] [address] [address] [address] Chari Lantigua Sodium [Moles/Vol] 141 mmol/L Normal 136-145 [facility] Comment on above: Performed By: #### C MP, LIPID #### [facility] [address] [address] [address] Chari Lantigua Urea nitrogen [Mass/Vol] 12.0 mg/dL Normal 7.0-18.0 [facility] Comment on above: Performed By: #### C MP, LIPID #### [facility] [address] [address] [address] Chari Lantigua Urea nitrogen/Creatinine [Mass ratio] 15.6 mg/mg Normal [facility] Comment on above: Performed By: #### C MP, LIPID #### [facility] [address] [address] FOOT RT WO CONon 11-07-[address] FOOT RT WO CON EXAMINATION: CT FOOT RT WO CON HISTORY: Idiopathic osteoarthritis COMPARISON: XR foot right 11/02/2021, CT foot right 08/12/2018 TECHNIQUE: Multi-planar CT images were created without IV contrast. Dose reduction techniques were achieved by using automated exposure control and/or adjustment of mA and/or kV according to patient size and/or use of iterative reconstruction technique. FINDINGS: BONES: A dorsal plate and screw repair of prior navicular fracture. Dorsal plate and screw fusion of the second tarsal-metatarsal joint. Moderate degenerative changes of the third tarsal-metatarsal joint. Multifocal mild degenerative joint disease. Large calcaneal plantar spur. Small Achilles tendon degenerative enthesophyte. Mild flattening of plantar arch. SOFT TISSUES: Mild soft tissue swelling. EFFUSION: None visible. OTHER: Negative. IMPRESSION: 1. Stable surgical changes without evidence of hardware failure or change in alignment. 2. Multifocal mild degenerative joint disease, moderate involving the third tarsal-metatarsal joint. Electronically authenticated by: CHAPIS HUANG Date: 2021-11-06 09:52 Normal [facility] MRI PROSTATE WO/W IVCONon [facility] HOMOCYSTEINEon 10-12-2021 Homocyst(e)ine, Plasma 7.7 umol/L Normal 0.0-17.2 [facility] Comment on above: Performed By: #### H OMCY #### [facility] [address] [address] [address] Chari Lantigua ANTI-BETA 2 GLYCOPROTEIN 1on 10-06-2021 ANTI B2GP1 IGG 0.1 g units Normal 0.0-19.9 [facility] Comment on above: Performed By: #### 9 [id number], [id number] #### [facility] [address] [place] [address], [facility] ANTI B2GP1 IGM 1.7 m units Normal 0.0-19.9 [facility] Comment on above: Performed By: #### 9 0118, [id number] #### [facility] [address] [place] [address], [facility] ANTICARDIOLIPIN ANTIBODYon 0 10-06-2021 CARDIOLIPIN IGG 1.6 GPL Normal 0.0-22.9 [facility] Comment on above: Performed By: #### 9 0118, [id number] #### [facility] [address] [facility] [address], [place] CARDIOLIPIN IGM 0.9 MPL Normal 0.0-10.9 [facility] Comment on above: Performed By: #### 9 0118, [id number] #### [facility] [address] [place] [address], [facility] ANTITHROMBIN III ACTIVITYon 10-06-2021 AT 3 ACTIVITY 100 % Normal 70-120 [facility] Comment on above: Performed By: #### 5 [id number], 11284, 15723, 77359 #### [facility] [address] FA[place] R506Q [place] [address]ar 10-06-2021 FACTOR V LEIDEN Heterozygous Abnormal [facility] Comment on above: Result Comment: Alem cation for testing: Assess genetic risk for thrombosis. HETEROZYGOUS: One copy of the factor V Leiden variant, c.1601G>A; p.[id number], was detected. This is associated with activated protein C resistance and a four to eight fold increased risk for venous thrombosis in comparison to individuals without this variant. Genetic consultation is recommended. This result has been reviewed and approved by Axel Salazar, Ph.D. BACKGROUND INFORMATION: Factor V Leiden (F5) R506Q Mutation CHARACTERISTICS: Venous thromboembolism (VTE) is multifactorial caused by a combination of genetic and environmental factors. The Factor V Leiden (FVL) variant is the most common cause of inherited VTEs, accounting for over 90 percent of activated protein C (APC) resistance. Because the FVL variant eliminates the APC cleavage site, factor V is inactivated slower, thus persisting longer in blood circulation, leading to more thrombin production. Other genetic risk factors for VTE include, male sex and variants in antithrombin, protein C, protein S, or factor XIII. Non-genetic risk factors include, age, smoking, prolonged immobilization, malignant neoplasms, surgery, , oral contraceptives, estrogen replacement therapy, tamoxifen and raloxifene therapy. INCIDENCE OF FACTOR V LEIDEN VARIANT: Approximately 5 percent of Caucasians, 2 percent of Hispanics, 1 percent of Americans and 0.5 percent of Asians are heterozygous; homozygosity occurs in 1 in 1500 Caucasians. INHERITANCE: Semi-dominant; both heterozygotes and homozygotes are at increased risk for VTE. PENETRANCE: Lifetime risk of VTE is 10 percent for heterozygotes and 80 percent of homozygotes. CAUSE: The pathogenic gain of function in the F5 gene variant c.1601G>A (p.[id number]). Legacy nomenclature: R506Q (1691G>A) CLINICAL SENSITIVITY: 20-50 percent of individuals with an isolated VTE have the FVL variant. METHODOLOGY: Polymerase chain reaction and fluorescence monitoring. ANALYTICAL SENSITIVITY AND SPECIFICITY: 99 percent. LIMITATIONS: Diagnostic errors can occur due to rare sequence variations. F5 gene mutations, other than p.Reh057Uyr, will not be detected. This test was developed and its performance characteristics determined by [employer] [facility]. It has not been cleared or approved by the [place] Food and Drug Administration. This test was performed in a CLIA certified laboratory and is intended for clinical purposes. Counseling and informed consent are recommended for genetic testing. Consent forms are available online. Performed By: [facility] [address] [place] [id number] Shoe Lacer: Harriett Martins MD FACV SPECIMEN Whole Blood Normal [facility] LUPUS ANTICOAGULANTon 2021 LUPUS ANTICOAGUL Negative Normal NEGATIVE [facility] Comment on above: Result Comment: BY H EXAGONAL PHASE PHOSPHOLIPID METHODOLOGY Performed By: #### 5 [id number], 83725, 91562, 39939 #### [facility] [address] [place] [address], [facility] PROTEIN C ACTIVITYon 022 PROTEIN C ACTIV 110 % Normal 60-140 [facility] Comment on above: Performed By: #### 5 3017, 07780, 37376, 64324 #### [facility] [address] [place] [address], [facility] PROTEIN S ACTIVITYon 022 PROTEIN S ACTIV 81 % Normal 60-165 [facility] Comment on above: Performed By: #### 5 3017, 44807, 70219, 31205 #### [facility] [address] [place] [address], [facility] PROTHROMBIN (F2) [id number] 560 60on 10-06-2021 PROTHROMBIN FRET ( PCR AND FRET) Negative Normal [facility] Comment on above: Result Comment: Alem cation for testing: Assess genetic risk for thrombosis. NEGATIVE: The Factor II, prothrombin [id number] mutation, was not detected. Other causes of elevated prothrombin levels and hereditary forms of venous thrombosis have not been excluded. Recommendations: If clinically indicated, testing for other inherited or acquired thrombophilic disorders is recommended including DNA testing for the factor V Leiden mutation, measurement of total plasma homocysteine concentration, serological assays for anticardiolipin antibodies, multiple phospholipid-dependent coagulation assays for lupus inhibitor, protein C activity, protein S activity or free protein S antigen, and antithrombin activity. This result has been reviewed and approved by Lizet Baires M.D., Ph.D. 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 The expression of Factor II thrombophilia is impacted by coexisting genetic thrombophilic disorders, acquired thrombophilic disorders (eg, malignancy, hyperhomocysteinemia, high factor VIII levels), and circumstances including: , oral contraceptive use, hormone replacement therapy, selective estrogen receptor modulators, travel, central venous catheters, surgery, and organ transplantation. INCIDENCE: Approximately 2 percent of Caucasians and 0.3 percent of Americans are heterozygous; homozygosity occurs in 1 in 10,000 individuals. INHERITANCE: Incomplete autosomal dominant. PENETRANCE: The risk of thrombosis is increased 2-4 fold for heterozygotes and further increased for homozygotes. CAUSE: Homozygosity or heterozygosity for F2 c.*97G>A (A67401O). PATHOGENIC VARIANT TESTED: F2 c.*97G>A (N57220K). CLINICAL SENSITIVITY FOR VENOUS THROMBOSIS: Approximately 10 percent. METHODOLOGY: Polymerase chain reaction and fluorescence monitoring. ANALYTICAL SENSITIVITY AND SPECIFICITY: 99 percent. LIMITATIONS: Diagnostic errors can occur due to rare sequence variations. F2 gene variants, other than c.*97G>A (J49051D), will not be detected. This test was developed and its performance characteristics determined by [employer] [facility]. It has not been cleared or approved by the [place] Food and Drug Administration. This test was performed in a CLIA certified laboratory and is intended for clinical purposes. Counseling and informed consent are recommended for genetic testing. Consent forms are available online. Performed By: [facility] [address] [place] [id number] Shoe Lacer: Harriett Martins MD PT PCR SPECIMEN Whole Blood Normal [facility] Cardiovascular Lab Reporton 11-19-2020 Cardiovascular Lab Report [facility] Patient Name: Marco Antonio Parra [facility] Von MR #: [id number] Department of Physician: Donna Faith M.D. Division of Service Date: 11/18/2020 Cardiology Birthdate: 1955 Adult Cardiovascular Room #: [facility] [address] [facility] [address] [facility]. [place], [place] [address] Cardiovascular Laboratory Report FINAL IMPRESSIONS: 1. Severe, heavily calcific coronary disease involving the right coronary artery. 2. Moderate disease of the left anterior descending coronary artery. 3. Mild plaque of the left circumflex coronary artery. 4. Normal global left ventricular systolic function by noninvasive imaging. RECOMMENDATIONS: 1. Aggressive cardiovascular risk factor modification. 2. Guideline-directed medical therapy for coronary artery disease including high-intensity statin therapy, aspirin, beta-gunner, and an angiotensin-converting enzyme inhibitor. 3. Given absence of symptoms and severe, concentric and diffuse calcification throughout the length of the right coronary artery and small caliber distal vessels, a conservative approach will be adopted; risks of intervention at this juncture outweigh the benefits. 4. A complete echocardiogram will be ordered as an outpatient. 5. The patient is to follow up with Cardiology in the next 1-2 months. 6. Follow up with his family physician as scheduled. PROCEDURES: Bilateral selective coronary angiography via a left radial approach, left heart catheterization, left ventriculography. METHODS: After risks, benefits, and alternatives were explained, written informed consent was obtained. The patient was prepped and draped in usual sterile fashion over the left wrist and left groin. Using 1% lidocaine solution, local infiltration anesthesia was achieved. Using a modified Seldinger technique and a micropuncture kit, access to the left radial artery was obtained. A 6-Indonesian 11 cm sheath was inserted without difficulty. Bilateral selective coronary angiography was performed using JR4 and JL4 catheters. An angled pigtail catheter was advanced in and the aortic valve crossed. Left heart catheterization and left ventriculography were performed using 36 mL at a constant rate of 12 mL/second. Aortic pullback pressure measurements were performed. At this juncture, it was elected to conclude the procedure. Old catheter is removed. The radial sheath was removed with application of a TR band per protocol to achieve optimal hemostasis. Overall, the patient tolerated the procedure well. There were no complications. He was to be transferred to the holding area in stable condition. FINDINGS: Hemodynamics. AO 100/56 (78). LV 100/2, 9. LEFT VENTRICULOGRAPHY: Single plane ventriculography in the right anterior oblique projection shows an ejection fraction estimated to be 65% to 70% with no significant wall motion abnormalities. The aortic root and ascending aorta generous with no obvious aneurysm or segmental dissection flaps. CORONARY ARTERIES: Left main coronary artery. This arises from the left coronary cusp. It is a short vessel that rapidly bifurcates into the left anterior descending and left circumflex coronary arteries and is free of significant stenosis. Left anterior descending coronary artery. This shows an ostial 40% to 50% stenosis. Heavy calcification throughout the entirety of the vessel and a discrete 50% stenosis just distal to a prominent diagonal branch. The remainder of the vessel shows caliber reduction and luminal irregularities. There is a discrete 90% stenosis just prior to the apex in the vessel that is less than 2 mm in size. Left circumflex coronary artery. This shows diffuse plaque and luminal irregularities. A high originating first obtuse marginal shows a 30% to 40% ostial stenosis. The remainder of the vessel and its branches show calcific plaque. Right coronary artery. This appears to be a codominant vessel giving rise to the posterior descending and small posterolateral branches. It shows severe, concentric, diffuse calcification from the ostium to the distal portion. There are sequential 90% to 95% stenoses in the mid and mid to distal portion. The calcium is distributed in a popcorn fashion. The distal vasculature is of small caliber being less than 2 mm in size. INDICATIONS: Family history of coronary artery disease and sudden cardiac , abnormal coronary calcium score. Electronically Signed by: Berry Fisher M.D. 11/23/2020 09:32 A Berry Fisher M.D. Date Dict: 11/18/2020/02:31 P/Berry Fisher M.D. Date Trans: 11/19/2020 05:18 A/aidan [id number] cc: Annette Shah M.D. [address] [place] [address] CARDIAC SCORINGon 05 CT CARDIAC SCORING Addendum Begins Patient Name: MARCO ANTONIO PARRA ADDENDUM: NON-CARDIOVASCULAR FINDINGS INCLUDED LUNGS, AIRWAYS AND PLEURA Endotracheal / endobronchial lesion: Negative Nodule: Negative Airspace disease: Negative Pleural effusion: Negative Pneumothorax: Negative Other: No acute or contributory unanticipated findings INCLUDED NON-CARDIOVASCULAR MIMA AND MEDIASTINUM Adenopathy: Negative Included esophagus: Unremarkable Other: No acute or contributory unanticipated findings INCLUDED BONES: No acute skeletal findings, noting less sensitivity and specificity without dedicated sagittal and coronal reformatted series. INCLUDED CHEST WALL No acute or contributory unanticipated findings INCLUDED UPPER ABDOMEN No acute or contributory unanticipated findings ------- NON-CARDIOVASCULAR IMPRESSION NO ACUTE OR CONTRIBUTORY UNEXPECTED FINDINGS OF THE INCLUDED NON-CARDIOVASCULAR STRUCTURES Electronically signed by: MCKINLEY FARR MD Addendum Ends Patient Name: MARCO ANTONIO PARRA STUDY: CT CARDIAC SCORING; 10/24/2020 8:02 am INDICATION: Hyperlipidemia, unspecified. COMPARISON: None. ACCESSION NUMBER(S): [id number] ORDERING CLINICIAN: ANNETTE SHAH TECHNIQUE: Using prospective ECG gating, CT scan of the coronary arteries was performed without intravenous contrast. Coronary calcium scoring was performed according to the method of Agatston. CT Dose-Length Product (DLP): 55.8 mGy*cm CT Dose Reduction Employed: Yes, prospective gating, iterative reconstruction. FINDINGS: The score and distribution of calcium in the coronary arteries is as follows: LM 118 LAD 1944 LCx 750 RCA 2061 Total 4873 The visualized ascending thoracic aorta measures 3.4 cm in diameter. The heart is normal in size. No pericardial effusion is present. The main pulmonary artery, right and left pulmonary artery are normal in size. IMPRESSION: 1. Coronary artery calcium score of 4873*. 2. GARCIA 99th percentile for age, gender, and race in asymptomatic patients. *Coronary Artery Agatston score Score risk Very low 1-99 Mildly increased 100-299 Moderately increased >300 Moderate to severely increased >800 Lyubov et al. JCCT 2016 (http://dx.doi.org/10.1 016/j.jcct.2016.11.003) GARCIA Percentile In general, greater than 75th percentile for age, gender, and race is considered to be a higher relative risk and higher lifetime risk condition. Greater than 75th percentile=moderate to severely increased relative risk irrespective of the score. Advise using GARCIA 10 year CHD risk calculator below for better discrimination of risk. GARCIA 10-Year CHD Risk with Coronary Artery Calcification can be calcuate using link below https://www.garcia-nhlbi. org/MESACHDRisk/MesaRis kScore/RiskScore.aspx [place]. JACC 2014 (http://dx.doi.org/10.1 016/j.j acc.2015.08.035) Reading Smash Fixer: Dr. Vaughn Park, Date: 10/24/2020 11:12 am Electronically signed by: MCKINLEY FARR MD [facility] Lower Ext/No Jt/w/oon 2017 Lower Ext/No Jt/w/o [facility] [place], [place] [address]Tjqla Ext/No Jt/w/oMR#: [id number] Acct: [id number]: MARCO ANTONIO PARRA Rep #: [id number]: 1955 M 63 From: Vincent Grier MDPCP: OUT OF TOWN DOCTOR Status: REG CLIStudy: Lower Ext/No Jt/w/o Date of Exam: 06/10/18Exam# [id number] [facility]ing [facility] by Dajuan Camejo MD on 06/11/18 at 1438 ========ADDENDUM======= ADD ENDUM:Study is compared with previous plain film and outside bone scan from 2016.Little significant change noted from the previous studies. The bone scansuggests fracture in the fourth metatarsal which is also noted on therecent MRI.The postoperative changes described on the MRI are also present on theplain film.Electronically Signed:Behzad Camejo MD at 14:38 ESTTel , Service support , 12 1438Date cc: Erin Minaya DPM; OUT OF TOWN DOCTOR *SignedADDENDUM by Dajuan Camejo MD on 06/11/18 at 1438 ========ADDENDUM======= ADD ENDUM:Study is compared with previous plain film and outside bone scan from 2016.Little significant change noted from the previous studies. The bone scansuggests fracture in the fourth metatarsal which is also noted on therecent MRI.The postoperative changes described on the MRI are also present on theplain film.Electronically Signed:Behzad Camejo MD at 14:38 ESTTel , Service support , 12 1438Date cc: Erin Minaya DPM; OUT OF TOWN DOCTOR *SignedADDENDUM by Dajuan Camejo MD on 06/11/18 at 1438ORDER #: [id number] MRI/Lower Ext/No Jt/w/o108/12/17 1445Date cc: Erin Minaya DPM; OUT OF TOWN DOCTOR *SignedADDENDUM by Dajuan Camejo MD on 06/11/18 at 1438ORDER #: [id number] MRI/Lower Ext/No Jt/w/o108/12/17 1445Date cc: Erin Minaya DPM; OUT OF TOWN DOCTOR *SignedSTUDY: MRI RIGHT MIDFOOTREASON FOR EXAM: Male, 63 years old. Pain.TECHNIQUE: Standardized fat and water weighted pulse sequences wereobtained in all 3 orthogonal planes.COMPARISON: None. FINDIN GS:There is mild degenerative arthrosis of the talonavicular articulation.There is a nonunited fracture of the navicular with fixation plate andscrews, series 7 images 01/14 through 03/17. Normal calcaneocuboidarticulat ion. Normal navicular-cuneiform articulations. There is milddegenerative arthrosis of the intercuneiform articulation.Normal first tarsometatarsal articulation. Normal Lisfranc ligament.Fusion and hardware at the second tarsometatarsal articulation. Normalcuboid fourth and cuboid fifth tarsometatarsal articulation.There is marrow edema at the base of the fourth metatarsal, series 9 image12/17.Normal tibialis anterior tendon. Normal extensor hallucis longus tendon.Normal extensor digitorum longus tendons. Normal peroneus longus tendonand distal insertion. Normal peroneus brevis tendon and distal insertion.Normal intrinsic muscles of the mid and forefoot region. Normal extensordigitorum brevis muscle.Normal subcutis adipose space. ORDER #: [id number] MRI/Lower Ext/No Jt/w/oIMPRESSION:Postop erative changes are seen with fusion at the second tarsometatarsalarticula tion. 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.Marrow edema with bone bruise or stress injury of the fourth metatarsal.Arthritic changes.Electronically Signed:Vincent Grier MD at 21:17 ESTTel , Service support , [place]: Erin Minaya DPM; OUT OF TOWN DOCTOR Carrier Blower:Signed Normal [facility] Vital Signs Date Time Vital Sign Value Performing Clinician Facility 03-05-2023 11:20-0400 Body height 172.72 cm Preston Terrell Other [employer] Other 03-05-2023 11:20-0400 Body mass index (BMI) [Ratio] 32.99 kg/m2 Preston Tejada Other [employer] Other 03-05-2023 11:20-0400 Body weight 98.43 kg Preston Tejada Other [employer] Other 03-05-2023 11:20-0400 Diastolic blood pressure 80 mm[Hg] Preston Tejada Other [employer] Other 03-05-2023 11:20-0400 Systolic blood pressure 126 mm[Hg] Preston Tejada Other [employer] Other 03-08-2022 12:40-0400 Body height 172.72 cm Preston Tejada Other [facility] [facility] Other 03-08-2022 12:40-0400 Body mass index (BMI) [Ratio] 36.94 kg/m2 Preston Tejada Other [facility] Other 03-08-2022 12:40-0400 Body weight 110.22 kg Preston Tejada Other [facility] Other 02-15-2022 12:30-0400 Body height 172.72 cm Annette Callaway II Other [employer] Other 02-15-2022 12:30-0400 Body mass index (BMI) [Ratio] 36.94 kg/m2 Annette Ronisle II Other [employer] Other 02-15-2022 12:30-0400 Body weight 110.22 kg Annette Callaway II Other [employer] Other Encounters Encounter Date Encounter Type Care Provider Facility Start: 07-25-2023 Chart abstracting Annette nettles MD Work Phone: [facility] Start: 07-15-2023 End: 07-16-2023 ambulatory YEIMI RICHEY Not Available Start: 05-30-2023 End: 05-30-2023 amb[facility] Start: 05-22-2023 End: 05-22-2023 ambulatory JEVON ZAMBRANO Facility:[facility] Start: 05-22-2023 End: 05-22-2023 ambulatory Jevon Zambrano MD Work Phone: Urology Comment on above: Prostate cancer (HCC ) (Primary Dx) Start: 05-22-2023 End: 05-22-2023 Telemedicine consultation with patient Jevon Zambrano MD Work Phone: [facility] Start: 03-05-2023 End: 03-05-2023 ambulatory Preston Tejada Other [facility] Other Start: 03-05-2023 Office outpatient vi sit [address] [facility] Start: 03-04-2023 End: 03-04-2023 ambulatory Preston Tejada Facility:[facility] Start: 10-26-2022 End: 10-26-2022 ambulatory GIANA PASTRANA Facility:[facility] Start: 10-26-2022 End: 10-26-2022 ambulatory Giana Pastrana MD Work Phone: Urology Comment on above: Prostate cancer (HCC ) (Primary Dx) Start: 10-26-2022 End: 10-26-2022 Telemedicine consultation with patient Giana Pastrana MD Work Phone: [facility] Start: 10-03-2022 End: 10-04-[address] DOCTOR REVELES Facility:[facility] Start: 07-21-2022 End: 07-22-[address] ANNETTE SHAH Facility:[facility] Start: 05-23-2022 End: 05-24-[address] ANNETTE SHAH Facility:[facility] Start: 04-20-2022 Telephone encounter Giana garcia MD Work Phone: Urology Comment on above: Results Start: 04-12-2022 End: 04-24-2022 Patient encounter procedure Hugo Garcia MD Work Phone: Urology Comment on above: Elevated PSA (Primar y Dx) Start: 04-11-2022 End: 04-12-[address] CASTILLO LISTED REQUEST Facility:[facility] Start: 04-10-2022 Orders Only Navin Redman MD Work Phone: Urology Comment on above: Prostate cancer (HCC ) (Primary Dx) Start: 03-08-2022 End: 03-08-2022 ambulatory Preston Tejada Other [facility] [employer] Other Start: 03-08-2022 Office outpatient vi sit [address] [facility] Start: 03-07-2022 End: 03-07-2022 Patient encounter procedure MD Annette Shah Work Phone: [facility] Start: 02-21-2022 Telephone encounter Giana garcia MD Work Phone: Urology Comment on above: Appointment Start: 02-15-2022 End: 02-15-2022 ambulatory Annette Callaway II Other [facility] [employer] Other Start: 02-15-2022 Office outpatient ne w 45 minutes Annette Callaway II [facility] Start: 02-15-2022 End: 02-15-2022 Patient encounter procedure MD Annette Shha Work Phone: [facility] Start: 02-08-2022 End: 02-08-[address] ANNETTE SHAH Facility:[facility] Start: 01-19-2022 End: 01-20-[address] ANNETTE SHAH Facility:[facility] Start: 11-23-2021 End: 11-23-2021 ambulatory Hugo Garcia MD Work Phone: Urology Comment on above: Prostate cancer (HCC ) Start: 11-23-2021 End: 11-23-2021 Telemedicine consultation with patient Hugo Garcia MD Work Phone: [facility] Start: 11-06-2021 End: 11-07-2021 ambulatory RON MCCORMICK Facility:[facility] Start: 11-02-2021 End: 11-03-2021 ambulatory RON MCCORMICK Facility:[facility] Start: 10-27-2021 End: 10-27-2021 Subsequent hospital visit by physician Mri 6 Radio Main Q (I-Stat/1.5t/3t) Work Phone: MRI Q Comment on above: Malignant neoplasm o f prostate (HCC) [C61] Start: 10-11-2021 End: 10-12-[address] DOCTOR REVELES Facility:[facility] Start: 11-18-2020 End: 11-19-2020 ambulatory ANNETTE SHAH Facility:[facility] Start: 06-10-2018 Patient encounter procedure Erin [facility] Facility:[facility] Start: 02-06-2017 Ambulatory [facility] Facility:1 [id number] Start: 02-06-2017 Ambulatory Facility:9 507 Procedures Date Procedure Procedure Detail Performing Clinician Start: 10-03-[address] ANNETTE SHAH Comment on above: Performed By: #### P SAD #### [facility] [address] [place] [address] Dr. Chari Lnatigua Start: 04-12-2022 Level iv surg pathol ogy gross&microscopic exam Hugo Garcia MD Work Phone: Start: 04-12-2022 Us transrct prstate vol brachytx plnning spx Hugo Garcia MD Work Phone: Start: 04-12-2022 Urnls dip stick/tabl et rgnt auto w/o microscopy Hugo Garcia MD Work Phone: Start: 04-11-[address] ANNETTE SHAH Comment on above: Performed By: #### P SAD #### [facility] [address] [place] [address] Chari Lantigua Start: 03-07-2022 X-ray of lumbar spin e, six views including bending views MD Annette Shah Work Phone: Start: 02-15-2022 End: 02-15-2022 Pelvis X-ray MD Annette Shah Work Phone: Start: 10-27-2021 Mri pelvis w/o & w/contrast material Navin Redman MD Work Phone: Start: 04-15-2017 Colonoscopy Annette nettles MD Work Phone: Plan of Treatment Date Care Activity Detail Author Start: 02-04-2028 Urine microalbumin profile DTaP,Tdap,Td Vaccine (2 - Td or Tdap) [facility] Start: 10-04-2027 PROSTATE CANCER SCREENING DISCUSSION PROSTATE CANCER SCREENING DISCUSSION [facility] Start: 04-15-2027 Screening for malignant neoplasm of colon [facility] Start: 07-20-2024 End: 07-20-2024 Patient encounter procedure 07/20/2024 8:00 AM EST Office Visit [facility] [address] [place] [address] Jr. Yeimi Cardenas, DO [address] [place] [address] [facility] Start: 01-17-2024 DIABETES SCREEN DIABETES SCREEN [facility] Start: 01-17-2024 Diabetes Screening Diabetes Screening [facility] Start: 11-20-2023 End: 06-20-2024 MRI PROSTATE WO/W IVCON MRI PROSTATE WO/W IVCON Radiology Routine Prostate cancer (HCC) Expected: 11/20/2023, Expires: 06/20/2024 [facility] Work Phone: Comment on above: Expected: 11/20/2023, Expires: Start: 11-20-2023 End: 02-19-2024 Prostate specific Ag [Mass/volume] in Serum or Plasma PSA/PROSTSPECAG DIAG Lab Routine Prostate cancer (HCC) Expected: 11/20/2023, Expires: 02/19/2024 [facility] Work Phone: Comment on above: Expected: 11/20/2023, Expires: Start: 07-31-2023 End: 07-31-2023 Patient encounter procedure 07/31/2023 9:15 AM EST Office Visit [facility] [address] [place] [address] Annette Shah MD [address] [place] [address] Essential (primary) hypertension (CMS/HCC) (Primary Dx); Pure hypercholesterolemia (CMS/HCC); Prediabetes; Coronary artery disease involving yurok coronary artery of yurok heart without angina pectoris (CMS/HCC); Gastroesophageal reflux disease without esophagitis; Generalized anxiety disorder (CMS/HCC); Osteopenia of multiple sites; Primary insomnia; Primary osteoarthritis involving multiple joints; Factor V Leiden (CMS/HCC); Vitamin D deficiency; History of malignant neoplasm of prostate; Morbid obesity (CMS/HCC) [facility] Comment on above: Essential (primary) hypertension (CMS/HC C) (Primary Dx); Pure hypercholesterolemia (CMS/HCC); Prediabetes; Coronary artery disease involving yurok coronary artery of yurok heart without angina pectoris (CMS/HCC); Gastroesophageal reflux disease without esophagitis; Generalized anxiety disorder (CMS/HCC); Osteopenia of multiple sites; Primary insomnia; Primary osteoarthritis involving multiple joints; Factor V Leiden (CMS/HCC); Vitamin D deficiency; History of malignant neoplasm of prostate; Morbid obesity (CMS/HCC) Start: 07-21-2023 Urine screening for protein Diabetes: Urine Protein Screening [facility] Start: 04-28-2023 End: 10-27-2023 Prostate specific Ag [Mass/volume] in Serum or Plasma PSA/PROSTSPECAG DIAG Lab Routine Prostate cancer (HCC) Expected: 04/28/2023, Expires: 10/27/2023 [facility] Work Phone: Comment on above: Expected: 04/28/2023, Expires: Start: 10-19-2022 Hemoglobin A1c measurement Diabetes: Hemoglobin A1C [facility] Start: 10-19-2022 End: 12-19-2022 Prostate specific Ag [Mass/volume] in Serum or Plasma PSA/PROSTSPECAG DIAG Lab Routine Prostate cancer (HCC) Expected: 10/19/2022, Expires: 12/19/2022 [facility] Work Phone: Comment on above: Expected: 10/19/2022, Expires: Start: 06-24-2022 ADVANCE DIRECTIVE DISCUSSION ADVANCE DIRECTIVE DISCUSSION [facility] Start: 06-24-2022 DEPRESSION ASSESSMENT DEPRESSION ASSESSMENT [facility] Start: 04-10-2022 End: 03-18-2023 Prostate specific Ag [Mass/volume] in Serum or Plasma PSA/PROSTSPECAG DIAG Lab Routine Prostate cancer (HCC) Expected: 04/10/2022 (Approximate), Expires: 03/18/2023 [facility] Work Phone: Comment on above: Expected: 04/10/2022 (Approximate), Expi res: 03/18/2023 Start: 02-22-2022 Influenza vaccination INFLUENZA (#1) [facility] Start: 01-16-2022 Pneumococcal Vaccine: 65+ (2 - PCV) Pneumococcal Vaccine: 65+ (2 - PCV) [facility] Start: 01-16-2022 Pneumococcal Vaccine: 65+ Years (2 - PCV) Pneumococcal Vaccine: 65+ Years (2 - PCV) [facility] Start: 06-24-2021 ADVANCE DIRECTIVE DISCUSSION ADVANCE DIRECTIVE DISCUSSION [facility] Start: 06-24-2021 DEPRESSION ASSESSMENT DEPRESSION ASSESSMENT [facility] Start: 06-10-2021 COVID-19 VACCINE (5 - Booster for Moderna series) COVID-19 VACCINE (5 - Booster for Moderna series) [facility] Start: 2021 Glaucoma screening Diabetes: Retinopathy Screening [facility] Start: 2020 PNEUMOCOCCAL: 65+ (1 - PCV) PNEUMOCOCCAL: 65+ (1 - PCV) [facility] Start: 2020 PNEUMOVAX AGE 65 AND OVER WITH 5YR LOOKBACK (#1) PNEUMOVAX AGE 65 AND OVER WITH 5YR LOOKBACK (#1) [facility] Start: 2015 RSV Vaccine (1 - 1-dose 60+ series) RSV Vaccine (1 - 1-dose 60+ series) [facility] Start: 2010 PROSTATE CANCER SCREENING DISCUSSION PROSTATE CANCER SCREENING DISCUSSION [facility] Start: 2005 SHINGRIX VACCINE (1 of 2) SHINGRIX VACCINE (1 of 2) [facility] Start: 2000 COLOGUARD (FIT-DNA) COLOGUARD (FIT-DNA) [facility] Start: 2000 Colonoscopy COLONOSCOPY [facility] Start: 2000 COLORECTAL CANCER SCREENING COLORECTAL CANCER SCREENING [facility] Start: [address] COLONOGRAPHY [facility] Start: 2000 FECAL OCCULT BLOOD FECAL OCCULT BLOOD [facility] Start: 2000 SIGMOIDOSCOPY SIGMOIDOSCOPY [facility] Start: 1990 Lipid 1996 panel - Serum or Plasma Lipid Screening [facility] Start: 1990 LIPID SCREEN LIPID SCREEN [facility] Start: 1974 SHINGRIX VACCINE (1 of 2) SHINGRIX VACCINE (1 of 2) [facility] Start: 1974 Urine microalbumin profile DTAP,TDAP,TD (1 - Tdap) [facility] Start: 1973 HEPATITIS C SCREENING HEPATITIS C SCREENING [facility] Start: 1967 Adult depression screening assessment DEPRESSION SCREENING [facility] Start: 1961 PNEUMOCOCCAL: 65+ (1 - PCV) PNEUMOCOCCAL: 65+ (1 - PCV) [facility] Start: 1955 Screening for malignant neoplasm of colon [facility] End: 06-20-2024 MRI 3D POST PROCESSING MRI 3D POST PROCESSING Radiology Routine Prostate cancer (HCC) 1 Occurrences starting 05/22/2023 until 06/20/2024 [facility] Work Phone: Comment on above: 1 Occurrences starting 05/22/2023 until 06/20/2024 [facility] Immunizations Immunization Date Immunization Notes Care Provider Fa cility 05-26-2023 RSV, recombinant, pr otein subunit RSVpreF, adjuvant reconstitu, 120mcg/0.5mL, PF (Arexvy) Annette Shah MD Work Phone: [facility] 04-14-2023 Influenza, Seasonal, Quadrivalent, Adjuvanted Annette Shah MD Work Phone: [facility] 04-14-2023 SARS-COV-2 (COVID-19 ) vaccine, mRNA, spike protein, LNP, PF, wellington-sucrose, 30 mcg/0.3 mL Annette Shah MD Work Phone: [facility] 04-14-2022 Influenza, Seasonal, Quadrivalent, Adjuvanted Annette Shah MD Work Phone: [facility] 06-04-2021 zoster vaccine recombinant Adrian Shah MD Work Phone: [facility] 04-02-2021 Influenza, Seasonal, Quadrivalent, Adjuvanted Annette Shah MD Work Phone: [facility] 04-02-2021 zoster vaccine recombinant Adrian Shah MD Work Phone: [facility] 03-28-2021 SARS-CoV-2, Unspecified Walt Shah MD Work Phone: [facility] 01-16-2021 pneumococcal polysaccharide vaccine, 23 valent Annette Shah MD Work Phone: [facility] 03-22-2020 influenza, injectabl e, quadrivalent, preservative free Annette Shah MD Work Phone: [facility] 05-25-2019 influenza, injectabl e, quadrivalent, preservative free Annette Shah MD Work Phone: [facility] 03-17-2018 influenza, injectabl e, quadrivalent, preservative free Annette Shah MD Work Phone: [facility] 02-03-2018 tetanus toxoid, redu umang diphtheria toxoid, and acellular pertussis vaccine, adsorbed Annette Shah MD Work Phone: [facility] 01-02-2017 zoster vaccine, live Annette Shah MD Work Phone: [facility] Payers Date Payer Category Payer Medicare MEDICARE MEDICAR E A AND B [id number] 2023-[facility] [phone] [place] [address] Medicare [id number] 2023 Medicare [id number] 2023 Medicare [id number] 2022 Unknown [id number] 2019 Unknown [id number] 2019 Unknown MMO MMO [employer] PLUS [id number] 2019-Present [phone] [address] [place] [address] PPO [id number] 2019 Unknown [id number] [id number] 2018 Self-pay 2018 Unknown [id number] 1955 Unknown [id number] [id number] 1955 Unknown [id number] [id number] 1955 Unknown [id number] [id number] 1955 Unknown [id number] 2.16.840.1.906979.3.579.2.593 1955 Unknown [id number] 2.16.840.1.949274.3.579.2.593 1955 Unknown [id number] 2.16.840.1.737417.3.579.2.593 1955 Unknown [id number] 2.16.840.1.302904.3.579.2.593 1955 Unknown [id number] 2.16.840.1.158375.3.579.2.593 1955 Unknown [id number] [id number] 1955 Unknown [id number] [id number] 1955 Unknown [id number] [id number] 1955 Unknown [id number] [id number] Unknown [id number] [id number] Unknown [id number] Social History Date Type Detail Facility Tobacco smoking status MEIS Tobacco smoking consumption unknown [facility] Work Phone: Start: 1955 Sex Assigned At Male [facility] Start: 10-17-2021 End: 04-12-2022 Exposure to SARS-CoV-2 (event) Not sure [facility] Start: 10-26-2022 End: 01-23-2023 Sex Assigned At [facility] Start: 04-07-2020 End: 11-20-2022 Tobacco smoking status MEIS Never smoked tobacco (finding) [facility] Start: 10-26-2022 End: 01-23-2023 History of Social function [facility] National Score (1-100), lower number is lower risk 62 [facility] Start: 09-03-2021 Gender identity Identifies as male gender (finding) [facility] Start: 11-20-2022 Tobacco use and exposure Smokeless tobacco non-user [facility] Start: 07-25-2023 Alcohol intake Current drinke r of alcohol (finding) [facility] Start: 01-23-2023 Alcohol Comment Caffeine: 2 cups moo ly [facility] Start: 1955 Sex Assigned At Not on file N [facility] Medical Equipment Procedure Code Equipment Code Equipment Origin al Text Equipment Identifier Dates Arthroplasty, knee, total, minimally invasive ART SURF RT 10MM 04-04 [facility] FDA Start: 04-07-2020 Arthroplasty, knee, total, minimally invasive Orthopaedic cement, non-medicated ([id number] FDA Start: 04-07-2020 Arthroplasty, knee, total, minimally invasive Uncoated knee femur prosthesis ()[id number] FDA Start: 04-07-2020 Arthroplasty, knee, total, minimally invasive Uncoated knee tibia prosthesis, metallic ()[id number] FDA Start: 04-07-2020 Arthroplasty, knee, total, minimally invasive Polyethylene patella prosthesis ()[id number] FDA Start: 04-07-2020 Arthroplasty, knee, total, minimally invasive ART SURF RT 10MM 10-12 [facility] FDA Start: 04-07-2020 ALLOGRAFT 11MM P LIF LORDOTIC FDA Start: 04-02-2018 SCREW 6.5 X 55MM CAPLOX II FDA Start: 04-02-2018 SCREW 6.5 X 55MM CAPLOX II FDA Start: 04-02-2018 SCREW 6.5 X 55MM CAPLOX II FDA Start: 04-02-2018 SCREW SET CAPLOX II FDA Start : 04-02-2018 SCREW SET CAPLOX II FDA Start : 04-02-2018 SCREW SET CAPLOX II FDA Start : 04-02-2018 SCREW SET CAPLOX II FDA Start : 04-02-2018 SCREW SET CAPLOX II FDA Start : 04-02-2018 SCREW SET CAPLOX II FDA Start : 04-02-2018 ALLOGRAFT 11MM P LIF LORDOTIC FDA Start: 04-02-2018 ALLOGRAFT 13MM 4DEGREES TLIF FDA Start: 04-02-2018 OSTEOAMP GRANULE S 10CC FDA Start: 04-02-2018 PRAVEEN 45MM CVD CAP LOX II FDA Start: 04-02-2018 PRAVEEN 55MM CVD CAP LOX II FDA Start: 04-02-2018 SCREW 6.5 X 50MM CAPLOX II FDA Start: 04-02-2018 SCREW 6.5 X 55MM CAPLOX II FDA Start: 04-02-2018 SCREW 6.5 X 55MM CAPLOX II FDA Start: 04-02-2018 ALLOGRAFT 11MM P LIF LORDOTIC FDA Start: 04-02-2018 SCREW 6.5 X 55MM CAPLOX II FDA Start: 04-02-2018 SCREW 6.5 X 55MM CAPLOX II FDA Start: 04-02-2018 SCREW 6.5 X 55MM CAPLOX II FDA Start: 04-02-2018 SCREW SET CAPLOX II FDA Start : 04-02-2018 SCREW SET CAPLOX II FDA Start : 04-02-2018 SCREW SET CAPLOX II FDA Start : 04-02-2018 SCREW SET CAPLOX II FDA Start : 04-02-2018 SCREW SET CAPLOX II FDA Start : 04-02-2018 SCREW SET CAPLOX II FDA Start : 04-02-2018 ALLOGRAFT 11MM P LIF LORDOTIC FDA Start: 04-02-2018 ALLOGRAFT 13MM 4DEGREES TLIF FDA Start: 04-02-2018 OSTEOAMP GRANULE S 10CC FDA Start: 04-02-2018 PRAVEEN 45MM CVD CAP LOX II FDA Start: 04-02-2018 PRAVEEN 55MM CVD CAP LOX II FDA Start: 04-02-2018 SCREW 6.5 X 50MM CAPLOX II FDA Start: 04-02-2018 SCREW 6.5 X 55MM CAPLOX II FDA Start: 04-02-2018 SCREW 6.5 X 55MM CAPLOX II FDA Start: 04-02-2018 Clinical Notes 10-27-2021 to 05-30-2023 Jevon Zambrano MD - 05/22/2023 4:48 PM EST Note Date & Type Note Facility 05-30-2023 Note [facility] Note Chief Complaint: Patient here for 1 year follow up CAD and dyslipidemia. Had routine labs in December 2022. Doing very well, as he denies chest pain, SOB, and palpitations. HPI: Marco Antonio Parra is a 67 y.o. male With a history of nonobstructive coronary artery disease, abnormal coronary calcium CT score, dyslipidemia Doing well. No new symptoms Cardiology ROS: Review of Systems Cardiovascular: Positive for leg swelling. Respiratory: Positive for snoring. All other systems reviewed and are negative. Past Medical History He has a past medical history of Coronary artery disease, Diabetes mellitus ([facility]), Factor V Leiden ([facility]), Family history of premature CAD, Family history of sudden cardiac , and Hyperlipidemia. Surgical History He has a past surgical history that includes Back surgery; Foot surgery; Replacement total knee oncologic; Vascular surgery; and Cardiac catheterization (11/18/2020). Social History He reports that he has never smoked. He has never used smokeless tobacco. He reports current alcohol use. No history on file for drug use. Family History Family History Problem Relation Name Age of Onset Sick sinus syndrome Father Allergies Patient has no known allergies. Medications Current Outpatient Medications: ALPRAZolam (Xanax) 0.25 mg tablet, Take 1 tablet by mouth in the morning., Disp: , Rfl: aspirin 81 mg EC tablet, aspirin 81 mg tablet,delayed release TAKE 1 TABLET BY MOUTH EVERY DAY, Disp: , Rfl: atorvastatin (Lipitor) 80 mg tablet, Take 1 tablet (80 mg) by mouth at bedtime., Disp: 90 tablet, Rfl: 3 cetirizine (ZyrTEC) 10 mg tablet, in the morning., Disp: , Rfl: diclofenac (Voltaren) 75 mg EC tablet, Take 75 mg by mouth in the morning and at bedtime., Disp: , Rfl: metoprolol succinate XL (Toprol-XL) 25 mg 24 hr tablet, Take 1 tablet (25 mg) by mouth once daily as directed., Disp: 90 tablet, Rfl: 2 omeprazole (PriLOSEC) [address] capsule, Take 1 tablet by mouth in the morning., Disp: , Rfl: semaglutide (Rybelsus) 7 mg tablet, Take 7 mg by mouth once daily as directed., Disp: , Rfl: zolpidem (Ambien) 5 mg tablet, Take 1 tablet by mouth if needed., Disp: , Rfl: Last Recorded Vitals BP 115/78 (BP Location: Left arm, Patient Position: Sitting) Pulse 70 Ht 1.727 m (5' 8 ) Wt 98.4 kg (217 lb) SpO2 97% BMI 32.99 kg/m??? Physical Examination: GENERAL: alert and oriented x3, well developed, in no acute distress. HEAD: atraumatic, normocephalic. EYES: DOM, EOMI. NECK: trachea midline, no JVD present, no carotid bruits present. CARDIAC: S1, S2 present. RRR. No murmur, rubs, or gallops. RESPIRATORY: CTAB, no increased effort of breathing, no rales, rhonchi, or wheezing. ABDOMEN: soft, nontender, nondistended. EXTREMITIES: no lower extremity edema, peripheral pulses are 2+ bilaterally. No rash/skin discoloration present. NEURO: strength/sensation equal and symmetric in bilateral upper and lower extremities. PSYCH: appropriate mood, affect, and judgement. Investigations: Cardiovascular lab report 11/18/2020 Final impressions: 1. Severe, heavily calcific coronary disease involving the right coronary artery 2. Moderate disease of the left anterior descending coronary artery 3. Mild plaque disease of the left circumflex artery 4. Normal global left ventricular systolic function by noninvasive imaging Recommendations: 1. Aggressive cardiovascular stratification 2. Guideline directed medical therapy for coronary artery disease should include high intensity statin, of aspirin, beta-gunner and an angiotensin-converting's inhibitor 3. Given absence of symptoms, severe, concentric and diffuse calcification throughout the length of the right coronary artery and small caliber distal vessels, conservative approach will be adopted. Risks of intervention at this juncture outweigh the benefits 4. Complete echocardiogram will be ordered Echocardiogram 2020: Global ventricular systolic function is normal; visually estimated ejection fraction is 55 to 60%. No regional wall motion abnormalities. Diastolic function. Moderate biatrial lodgment. Right ventricle is mildly dilated with normal systolic function. Mild mitral regurgitation. Mild aortic regurgitation Assessment: 1. Coronary atherosclerosis I25.10: Atherosclerotic heart disease of [place] coronary artery without angina pectoris 2. Abnormal findings diagnostic imaging heart+coronary circulat - Abnormal calcium score 99th percentile for age and gender and race R93.1: Abnormal findings on diagnostic imaging of heart and coronary circulation 3. Factor V Leiden mutation D68.51: Activated protein C resistance FACTOR V LEIDEN: CARE INSTRUCTIONS we will refer to [facility] given history of 2 venous thromboembolic events; especially with his factor V Leiden deficiency; did not recommend lifelong anticoagulation 4. Dysli (more content not included)... [facility] 05-22-2023 Note HNO ID: [id number] Author: Jevon Zambrano MD Service: ? Author Type: Physician Type: Progress Notes Filed: 05/22/2023 4:58 PM Note Text: VIRTUAL VISIT PROGRESS NOTE This is a virtual visit using [employer] Video Visit. It required patient-provider interaction for the medical decision making as documented below. I have communicated my name and active licensure. The patient's identity and physical location were verified at the time of this visit. Either the patient or their legal artist's representative has been informed of the risks and benefits of -- and alternatives to -- treatment through a remote evaluation and consents to proceed with the evaluation remotely. REASON FOR VISIT: Follow up for Adenocarcinoma of Prostate HPI: 67 year old male presents for follow up for prostate cancer on active surveillance Last visit: 10/26/2022 Generally doing well. Denies nausea, loss of appetite, unintentional weight loss, fever, fatigue. No bone pain. Patient reports PSA last week was 1.25. Prostate Biopsies: 04/12/22 - No malignancy. 3 cores of CHIRAG. 08/25/2020:Nina 3+3, 2/ cores 05/28/2019: Bristow 3+3=6, 1/12 cores PSA today: 10/29/2022 - 1.19 10/03/2022 - 1.15 03/2022 - 1.19 08/2021: 0.8 02/23/2021: 1.17 08/18/2020: 1.03 02/20/2020: 1.97 No results found for: PSA MRI 10/2021 - left mid anterior TZ PIRADS3 lesion. 29cc gland MRI 02/2020 - negative Some aspects were copied from previous note. All aspects have been reviewed and reflect my clinical decision making from today. PATHOLOGY: FINAL DIAGNOSIS A. Prostate, left mid anterior transition zone, biopsy: - Prostate tissue with single atypical gland present (atypical small acinar proliferation). B. Prostate, left anterior, biopsy: - Prostate tissue with small focus of atypical glands present (atypical small acinar proliferation). C. Prostate, left posterior, biopsy: - Prostate tissue with small focus of atypical glands present (atypical small acinar proliferation). D. Prostate, right anterior, biopsy: - Benign prostate tissue. E. Prostate, right posterior, biopsy: - Benign prostate tissue. LABS: No results found for: CREAT No results found for: PSA , PSAPER ALLERGIES: ALLERGIES No Known Allergies MEDICATIONS: Current Outpatient Medications Medication Sig zolpidem (AMBIEN) 5 mg tablet Take 1 tablet by mouth as needed. ALPRAZolam (XANAX) 0.25 mg tablet Take 1 tablet by mouth once daily. cetirizine (ZYRTEC) 10 mg tablet Take 10 mg by mouth once daily. calcium carbonate (CALTRATE) 600 mg calcium (1,500 mg) tab Take 1 tablet by mouth once daily. omeprazole (PRILOSEC) 20 mg capsule Take 20 mg by mouth once daily. diclofenac, EC, (VOLTAREN) 75 mg EC tablet Take 1 tablet by mouth twice daily as needed. sildenafil (VIAGRA) 100 mg tablet Take 100 mg by mouth once daily. polyethylene glycol 3350 (MIRALAX, GLYCOLAX) 17 gram/dose powder Take by mouth once daily. docusate sodium (COLACE) 100 mg capsule Take 100 mg by mouth twice daily. No current facility-administered medications for this visit. HISTORIES PAST MEDICAL HISTORY Diagnosis Date Arthritis Factor V Leiden (HCC) History of DVT (deep vein thrombosis) Hyperlipidemia PAST SURGICAL HISTORY Procedure Laterality Date BACK SURGERY HX KNEE SURGERY HX No family history on file. REVIEW OF SYSTEMS: CONSTITUTIONAL: no recent illnesses, normal energy levels, no pain GASTROINTESTINAL: no constipation, no diarrhea, no bloody stool GENITOURINARY: see history of present illness MUSCULOSKELETAL: no joint swelling, no joint pain, no loss of mobility NEUROLOGIC: no stroke symptoms, no loss of function, no loss of sensation PHYSICAL EXAMINATION: VIDEO EXAM: (if completed, performed via video enabled technology) GENERAL: alert and appropriate, in no distress, well-hydrated, well-nourished and happy, smiling, interactive SKIN: no rash noted HEAD: normocephalic, no abnormality or lesion noted RESPIRATORY: breathing non-labored and no grunting/flaring/retractions NEUROLOGIC: no obvious deficit PROBLEMS: 1. Prostate cancer (HCC) - ICD9: 185, ICD10: C61 IMPRESSION: This is a 67 year old male with history of GG1 prostate cancer on . PSA overall stable. Most recent prostate biopsy with CHIRAG. PLAN: 1) Repeat PSA and MRI in 6 months with follow up after Jevon Zambrano MD [facility] 05-22-2023 History of Present illness Narrative VIRTUAL VISIT PROGRESS NOTE This is a virtual visit using [employer] Video Visit. It required patient-provider interaction for the medical decision making as documented below. I have communicated my name and active licensure. The patient's identity and physical location were verified at the time of this visit. Either the patient or their legal artist's representative has been informed of the risks and benefits of -- and alternatives to -- treatment through a remote evaluation and consents to proceed with the evaluation remotely. REASON FOR VISIT: Follow up for Adenocarcinoma of Prostate HPI: 67 year old male presents for follow up for prostate cancer on active surveillance Last visit: 10/26/2022 Generally doing well. Denies nausea, loss of appetite, unintentional weight loss, fever, fatigue. No bone pain. Patient reports PSA last week was 1.25. Prostate Biopsies: 04/12/22 - No malignancy. 3 cores of CHIRAG. 08/25/2020:Nina 3+3, 2/12 cores 05/28/2019: [place] 3+3=6, 1/12 cores PSA today: 10/29/2022 - 1.19 10/03/2022 - 1.15 03/2022 - 1.19 08/2021: 0.8 02/23/2021: 1.17 08/18/2020: 1.03 02/20/2020: 1.97 No results found for: PSA MRI 10/2021 - left mid anterior TZ PIRADS3 lesion. 29cc gland MRI 02/2020 - negative Some aspects were copied from previous note. All aspects have been reviewed and reflect my clinical decision making from today. PATHOLOGY: FINAL DIAGNOSIS A. Prostate, left mid anterior transition zone, biopsy: - Prostate tissue with single atypical gland present (atypical small acinar proliferation). B. Prostate, left anterior, biopsy: - Prostate tissue with small focus of atypical glands present (atypical small acinar proliferation). C. Prostate, left posterior, biopsy: - Prostate tissue with small focus of atypical glands present (atypical small acinar proliferation). D. Prostate, right anterior, biopsy: - Benign prostate tissue. E. Prostate, right posterior, biopsy: - Benign prostate tissue. LABS: No results found for: CREAT No results found for: PSA , PSAPER ALLERGIES: ALLERGIES No Known Allergies MEDICATIONS: Current Outpatient Medications Medication Sig zolpidem (AMBIEN) 5 mg tablet Take 1 tablet by mouth as needed. ALPRAZolam (XANAX) 0.25 mg tablet Take 1 tablet by mouth once daily. cetirizine (ZYRTEC) 10 mg tablet Take 10 mg by mouth once daily. calcium carbonate (CALTRATE) 600 mg calcium (1,500 mg) tab Take 1 tablet by mouth once daily. omeprazole (PRILOSEC) 20 mg capsule Take 20 mg by mouth once daily. diclofenac, EC, (VOLTAREN) 75 mg EC tablet Take 1 tablet by mouth twice daily as needed. sildenafil (VIAGRA) 100 mg tablet Take 100 mg by mouth once daily. polyethylene glycol 3350 (MIRALAX, GLYCOLAX) 17 gram/dose powder Take by mouth once daily. docusate sodium (COLACE) 100 mg capsule Take 100 mg by mouth twice daily. No current facility-administered medications for this visit. HISTORIES PAST MEDICAL HISTORY Diagnosis Date Arthritis Factor V Leiden (HCC) History of DVT (deep vein thrombosis) Hyperlipidemia PAST SURGICAL HISTORY Procedure Laterality Date BACK SURGERY HX KNEE SURGERY HX No family history on file. REVIEW OF SYSTEMS: CONSTITUTIONAL: no recent illnesses, normal energy levels, no pain GASTROINTESTINAL: no constipation, no diarrhea, no bloody stool GENITOURINARY: see history of present illness MUSCULOSKELETAL: no joint swelling, no joint pain, no loss of mobility NEUROLOGIC: no stroke symptoms, no loss of function, no loss of sensation PHYSICAL EXAMINATION: VIDEO EXAM: (if completed, performed via video enabled technology) GENERAL: alert and appropriate, in no distress, well-hydrated, well-nourished and happy, smiling, interactive SKIN: no rash noted HEAD: normocephalic, no abnormality or lesion noted RESPIRATORY: breathing non-labored and no grunting/flaring/retractions NEUROLOGIC: no obvious deficit PROBLEMS: 1. Prostate cancer ([facility]) - ICD9: 185, ICD10: C61 IMPRESSION: This is a 67 year old male with history of GG1 prostate cancer on . PSA overall stable. Most recent prostate biopsy with CHIRAG. PLAN: 1) Repeat PSA and MRI in 6 months with follow up after Jevon Zambrano MD documented in this encounter [facility] 03-05-2023 Evaluation note Encounter Date Diagnosis Assessment Notes Feb, Spondylolisthesis of lumbar region (ICD-10 - M43.16) Patient continues to have very minimal back pain no leg pain and doing well. His left foot continues to be just slightly weak. He has some upper lumbar pain occasionally he is asking for Skelaxin I have asked him to please consult his family doctor. I independently reviewed the plain x-ray of the lumbar spine that shows no acute change he still has broken screws at S1. Good fusion noted slight retrolisthesis at L3-4. I think he is overall done well I will see him again in a year with another x-ray. Feb, History of lumbar fusion (ICD-10 - Z98.1) [employer] Other 05-05-2023 NoteHNO ID: [id number] Author: Giana Pastrana MD Service: ? Author Type: Physician Type: Progress Notes Filed: 10/26/2022 10:57 AM Note Text: REASON FOR VISIT: Follow up for Adenocarcinoma of Prostate I have communicated my name and active licensure. The patient's identity and physical location were verified at the time of this visit. Either the patient or their legal artist's representative has been informed of the risks and benefits of -- and alternatives to -- treatment through a remote evaluation and consents to proceed with the evaluation remotely. HPI: 67 year old male with prostate cancer on . Prostate Biopsies: 04/12/22 - No malignancy. 3 cores of CHIRAG. 08/25/2020:[place] 3+3, 2/12 cores 05/28/2019: [place] 3+3=6, 1/12 cores PSA today: 10/03/2022 - 1.15 03/2022 - 1.19 08/2021: 0.8 02/23/2021: 1.17 08/18/2020: 1.03 02/20/2020: 1.97 No results found for: PSA MRI 10/2021 - left mid anterior TZ PIRADS3 lesion. 29cc gland MRI 02/2020 - negative Generally doing well. Denies nausea, loss of appetite, unintentional weight loss, fever, fatigue. No bone pain. PATHOLOGY: FINAL DIAGNOSIS A. Prostate, left mid anterior transition zone, biopsy: - Prostate tissue with single atypical gland present (atypical small acinar proliferation). B. Prostate, left anterior, biopsy: - Prostate tissue with small focus of atypical glands present (atypical small acinar proliferation). C. Prostate, left posterior, biopsy: - Prostate tissue with small focus of atypical glands present (atypical small acinar proliferation). D. Prostate, right anterior, biopsy: - Benign prostate tissue. E. Prostate, right posterior, biopsy: - Benign prostate tissue. LABS: No results found for: CREAT No results found for: PSA, PSAPER URINALYSIS: Urine dip shows: Invalid input(s): SPRG, NITRATES ALLERGIES: ALLERGIES No Known Allergies MEDICATIONS: Current Outpatient Medications Medication Sig zolpidem (AMBIEN) 5 mg tablet Take 1 tablet by mouth as needed. ALPRAZolam (XANAX) 0.25 mg tablet Take 1 tablet by mouth once daily. simvastatin (ZOCOR) 20 mg tablet Take 20 mg by mouth once daily. cetirizine (ZYRTEC) 10 mg tablet Take 10 mg by mouth once daily. calcium carbonate (CALTRATE) 600 mg calcium (1,500 mg) tab Take 1 tablet by mouth once daily. multivit-mins/iron/folic/lycop (MV,CA,CJW-QTSP-IB-LYCOPENE ORAL) Take 1 tablet by mouth once daily. omeprazole (PRILOSEC) 20 mg capsule Take 20 mg by mouth once daily. diclofenac, EC, (VOLTAREN) 75 mg EC tablet Take 1 tablet by mouth twice daily as needed. sildenafil (VIAGRA) 100 mg tablet Take 100 mg by mouth once daily. polyethylene glycol 3350 (MIRALAX, GLYCOLAX) 17 gram/dose powder Take by mouth once daily. glucosamine/chondr wise A sod (OSTEO BI-FLEX ORAL) Take by mouth. docusate sodium (COLACE) 100 mg capsule Take 100 mg by mouth twice daily. No current facility-administered medications for this visit. HISTORIES PAST MEDICAL HISTORY Diagnosis Date Arthritis Factor V Leiden (HCC) History of DVT (deep vein thrombosis) Hyperlipidemia PAST SURGICAL HISTORY Procedure Laterality Date BACK SURGERY HX KNEE SURGERY HX No family history on file. REVIEW OF SYSTEMS General: No weight loss, malaise or fevers., SEE HPI Genitourinary: See HPI The remainder of the ROS was reviewed and negative. PHYSICAL EXAMINATION There were no vitals taken for this visit. No exam performed PROBLEMS: 1. Prostate cancer (HCC) - ICD9: 185, ICD10: C61 IMPRESSION: This is a 67 year old male with low risk prostate cancer on PLAN: 1) PSA in 6 months. Follow up with Dr. Jose hebert. Medical Decision Making: Problems: Low: Stable chronic illness Data: Unique test(s) ordered: 1 Risk: Moderate: Moderate risk from testing/treatment Medical Decision Making Level: 3 - Low Electronically Signed: Giana Pastrana MD, MSN October 25, 2022 5:28 [facility]05-[facility] History of Present illness Narrative* Giana Pastrana MD - 10/26/2022 10:30 AM EDT REASON FOR VISIT: Follow up for Adenocarcinoma of Prostate I have communicated my name and active licensure. The patient's identity and physical location wereverified at the time of this visit. Either the patient or their legal artist's representative has been informed of the risks and benefits of -- and alternatives to -- treatment through a remote evaluation andconsents to proceed with the evaluation remotely. HPI: 67 year old male with prostate cancer on . Prostate Biopsies: 04/12/22 - No malignancy. 3 cores of CHIRAG. 08/25/2020:[place] 3+3, 2/12 cores 05/28/2019: Nina 3+3=6, 1/12 cores PSA today: 10/03/2022 - 1.15 03/2022 - 1.19 08/2021: 0.8 02/23/2021: 1.17 08/18/2020: 1.03 02/20/2020: 1.97 No results found for: PSA MRI 10/2021 - left mid anterior TZ PIRADS3 lesion. 29cc gland MRI 02/2020 - negative Generally doing well. Denies nausea, loss of appetite, unintentional weight loss, fever, fatigue. No bone pain. PATHOLOGY: FINAL DIAGNOSIS A. Prostate, left mid anterior transition zone, biopsy: - Prostate tissue with single atypical gland present (atypical small acinar proliferation). B. Prostate, left anterior, biopsy: - Prostate tissue with small focus of atypical glands present (atypical small acinar proliferation). C. Prostate, left posterior, biopsy: - Prostate tissue with small focus of atypical glands present (atypical small acinar proliferation). D. Prostate, right anterior, biopsy: - Benign prostate tissue. E. Prostate, right posterior, biopsy: - Benign prostate tissue. LABS: No results found for: CREAT No results found for: PSA, PSAPER URINALYSIS: Urine dip shows: Invalid input(s): SPRG, NITRATES ALLERGIES: ALLERGIES No Known Allergies MEDICATIONS: Current Outpatient Medications Medication Sig zolpidem (AMBIEN) 5 mg tablet Take 1 tablet by mouth as needed. ALPRAZolam (XANAX) 0.25 mg tablet Take 1 tablet by mouth once daily. simvastatin (ZOCOR) 20 mg tablet Take 20 mg by mouth once daily. cetirizine (ZYRTEC) 10 mg tablet Take 10 mg by mouth once daily. calcium carbonate (CALTRATE) 600 mg calcium (1,500 mg) tab Take 1 tablet by mouth once daily. multivit-mins/iron/folic/lycop (MV,CA,KAU-GDUA-BO-LYCOPENE ORAL) Take 1 tablet by mouth once daily. omeprazole (PRILOSEC) 20 mg capsule Take 20 mg by mouth once daily. diclofenac, EC, (VOLTAREN) 75 mg EC tablet Take 1 tablet by mouth twice daily as needed. sildenafil (VIAGRA) 100 mg tablet Take 100 mg by mouth once daily. polyethylene glycol 3350 (MIRALAX, GLYCOLAX) 17 gram/dose powder Take by mouth once daily. glucosamine/chondr wise A sod (OSTEO BI-FLEX ORAL) Take by mouth. docusate sodium (COLACE) 100 mg capsule Take 100 mg by mouth twice daily. No current facility-administered medications for this visit. HISTORIES PAST MEDICAL HISTORY Diagnosis Date Arthritis Factor V Leiden (HCC) History of DVT (deep vein thrombosis) Hyperlipidemia PAST SURGICAL HISTORY Procedure Laterality Date BACK SURGERY HX KNEE SURGERY HX No family history on file. REVIEW OF SYSTEMS General: No weight loss, malaise or fevers., SEE HPI Genitourinary: See HPI The remainder of the ROS was reviewed and negative. PHYSICAL EXAMINATION There were no vitals taken for this visit. No exam performed PROBLEMS: 1. Prostate cancer (HCC) - ICD9: 185, ICD10: C61 IMPRESSION: This is a 67 year old male with low risk prostate cancer on PLAN: 1) PSA in 6 months. Follow up with Dr. Jose hebert. Medical Decision Making: Problems: Low: Stable chronic illness Data: Unique test(s) ordered: 1 Risk: Moderate: Moderate risk from testing/treatment Medical Decision Making Level: 3 - Low Electronically Signed: Giana Pastrana MD, MSN October 25, 2022 5:28 PM [facility] Miscellaneous Notes* Telephone Encounter - Giana Pastrana MD - 04/20/2022 2:37 PM EDT I spoke with And Mrs. Parra. Biopsy results are favorable. No malignancy noted. 3 cores of CHIRAG. We will continue with and recheck PSA in 6 months. Giana Pastrana MD Department of Urology [employer] Laparoscopy Fellow [facility] History of Present illness Narrative* Kim Virk RN - 04/12/2022 3:19 PM EDT UNIVERSAL PROTOCOL / SAFETY CHECKLIST Procedure to be Performed: Trans perineal fusion biopsy with nitrous Sign In: A Moment of CARE was completed. Personnel directly involved with the procedure wore the appropriate PPE (Personal Protective Equipment). No special equipment needed. Patient/Surrogate Stated/Verified: PATIENT VERIFIED(optional for EMERGENT procedures): Patient name, Date of , Relevant allergies, and The intended procedure Time Out Communication: Intended patient and procedure match the source documents. Consent documented and matches the intended procedure. Relevant labs, photos, and/or imaging studies have been reviewed. Correct side/site marked and visible. No medications required for procedure. No fire risk assessment and interventions applicable. No implant(s) inserted. Sign Out: SIGN OUT (optional for EMERGENT procedures): All specimen containers correctly labeled. No instruments, equipment or retained foreign bodies applicable. Post-procedure follow-up management communicated and Plan of Care Visit completed when applicable. Kim Virk RN T [facility] Nurse Note* Kim Virk RN - 04/12/2022 2:23 PM EDT Actual procedure/procedure scheduled: Performing provider/scheduled provider: Moriah Patient was roomed in: Q9- 15 Patient arrived in the room at: 1420 Patient ready for procedure: 1435 The procedure started at ( Time Only): 1505 The procedure ended at: 1516 Was the procedure delayed: No The patient left the procedure room at: 1545 Kim Virk RN PRE PROCEDURE ASSESSMENT- Transperineal fusion Bx with nitrous Procedure/Indication: Trans perineal Fusion Biopsy with nitrous Latex Allergy: No Allergies reviewed and updated No Pre-Procedure Vital Signs: BP: 119/76 Pulse: 78 Heart Valve replacement: No Joint replacement: Yes Right knee Do you currently have an infection: No Anticoagulant: Yes : Aspirin - Date stopped 04/05 Back Office UA obtained: yes Eaten prior to procedure: Yes PROCEDURE PREP- Transperineal fusion BX with nitrous Patient ID with two(2)identifiers verified by: Kim Virk RN Pre-Procedure Antibiotics: Keflex 500 mg orally given now @ 1426 , by Kim Virk RN Anesthetic given: Administered by MD - see Procedure Physician Note. UNIVERSAL PROTOCOL / SAFETY CHECKLIST Procedure to be performed: Transperineal Fusion Biopsy with nitrous Sign in Communication: Completed Time Out: Team Confirms the Correct Patient, Correct Procedure, Correct Site and Site Marking, Correct Position (if applicable) Sign Out Discussion: Completed Kim Virk RN POST PROCEDURE NURSE ASSESSMENT Present along with physician during procedure exam. Kim Virk RN Instruction sheet given and reviewed and patient verbalizes understanding: yes Post-Procedure Vital Signs: BP: 138/86 Pulse: 69 Current pain intensity is 0 on a 0-10 pain scale. Post-Procedure Medications: None Kim Virk RN PATIENT EDUCATION THE FOLLOWING WAS EVALUATED Motivation To Learn: Interested Family/Significant Other Support: Unable to assess - Family not present Cognitive Ability: Alert/Oriented Patient Learns Best By: Written instruction - handouts Verbal instruction The Following Influencing Factors Were Barriers To This Education Session: None The Following Physical Limitations Were Barriers To This Education Session: None Instruction Provided To:Patient Pleater Present: not applicable Discipline: Nursing Learning Topic: Survival Skills: Complication Prevention Symptom Management Patient Evaluation: Verbalizes understanding: Yes Supplemental Material Given: Written Material Instructed By Kim Virk RN In Department Urology . 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 MRI 10/2021 - PIRADS 3 lesion. 29cc gland. TRANSRECTAL ULTRASOUND: ? Prostate Volume: 29 cc. ? PSA density: 0.02 ng/cc ? Hypoechogenic areas exist which could represent areas of malignancy. ? Seminal vesicles: Normal ? Documentation images were taken. Yes ULTRASONIC GUIDED PROSTATE BIOPSY: ? Prostate anesthetic block was performed using lidocaine. ? Biopsies of abnormal appearing areas were performed. ? Random biopsies were taken from the base, mid-gland and apex bilaterally. ? Total number of biopsies taken. 9 Procedure(s): Lesion-targeted Transperineal MRI-Fusion Targeted Prostate Biopsy, Trans Rectal Ultrasound Anesthesia: nitrous oxide and local anaesthetic Preoperative Diagnosis: MRI Prostate Lesion suspicious for cancer Postoperative Diagnoses: MRI Prostate Lesion suspicious for cancer Findings: Good fusion and lesion targeted adequately Procedure Narrative: After informed consent was obtained, the patient was taken to the procedure room. A time out was performed where the patient and the procedure were identified in the presence of the Nursing and Surgical Staff. The patient was placed in the dorsal lithotomy position and prepped and draped in routine fashion. Due to the complex morphology of prostate cancer, targeted biopsy of suspected prostate cancers wasrequired. The high PI-RADS score lesion(s) were identified using magnetic resonance-ultrasound (MR-US) fusion based on 3D rotational segmentation, landmark selection and multi-planar reconstruction of the prostate gland using the [employer] system. Trans-rectal ultrasound with a guide was used to precisely biopsy the target lesion. Multiple tissue cores were taken transperineally after administering approximately 10 cc of local anesthetic subcutaneously and in the periprostatic space. Number of Biopsy Cores Taken: see path Accidental Punctures or Lacerations: None Estimated Blood Loss: Minimal Specimens: Prostate Biopsies Implanted Devices: None Drains: None Complications: None The primary surgeon/proceduralist performed the procedure Follow up in one week to discuss pathology results. Scribe Attestation: By signing my name below, I, Candice Julio, attest that this documentation has been prepared under the direction and in the presence of Hugo Garcia M.D. Electronically Signed: Phong Busch. April 12, 2022 3:16 PM Provider Attestation: I, Dr. Hugo Garcia personally performed the services described in this documentation. All medical record entries made by the scribe were at my direction and in my presence. I have reviewed the chart and discharge instructions (if applicable) and agree that the record reflects my personal performance and is accurate and complete. Dr. Hugo Garcia MD May 14, 2022, documented in this encounter[facility] Evaluation note* Encounter Date Diagnosis Assessment Notes Treatment Notes Treatment Clinical Notes Feb, Spondylolisthesis of lumbar region (ICD-10 - M43.16) Patient is doing well with no significant radicular leg pain and is functioning at a high capacity at his job. I independently reviewed the plain x-ray of the lumbar spine and compared to previous. Broken screws are still seen with no acute changes. He appears to be relatively stable at the level above although there is slight fishmouthing at L3-4 on lateral bending. We will see the patient again in a year with another xray unless new symptoms arise. Feb, History of lumbar fusion (ICD-10 - Z98.1) [employer] Other 08-31-2022 Miscellaneous Notes* Telephone Encounter - Giana Pastrana MD - 02/21/2022 6:59 PM EDT Spoke with pt and his over the phone. We cannot accomodate 04/26 for TP biopsy. Offered 03/08, which does not work for the patient. We will move the date to 04/12/22. Giana Pastrana MD Department of Urology [employer] Laparoscopy Fellow documented in [facility] Evaluation note* Encounter Date Diagnosis Assessment Notes Treatment Notes Treatment Clinical Notes Jan, Acute pain of left knee (ICD-10 - M25.562) Jan, Other We had a long discussion with the patient today concerning their left knee osteoarthritis. The radiographs do show osteoarthritis of the knee. At this point I explained to the patient that since he is still getting excellent relief with his steroid injection and is not having any issues with the knee I would ride this out as long as possible and continue doing injections until they are not providing him relief or a sick of doing injections and having pain that bothers him on a daily basis. At that time then I may consider him a candidate for a knee replacement surgery. In the meantime, would recommend him continuing with Tylenol, diclofenac, Voltaren gel, and injections as needed. He can follow-up with me on an as-needed basis. [employer] Other 06-02-2022 History of Present illness Narrative* Hugo Garcia MD - 11/23/2021 11:45 AM EDT VIRTUAL VISIT PROGRESS NOTE This is a virtual visit using [employer] video visit. It required patient-provider interaction for the medical decision making as documented below. REASON FOR VISIT: Follow up for Adenocarcinoma of Prostate HPI: 66 year old male with prostate cancer on active surveillance for Nina 3+3 disease. His lastMRI October 2021 showed a PIRADS 3 lesion. Last PSA in August 2021 was 0.8. Prostate Biopsies: 08/25/2020:Nina 3+3, 2/12 cores 05/28/2019: Nina 3+3=6, 1/12 cores MRI October 27 IMPRESSION: 0.8 CM LEFT MID ANTERIOR TRANSITION ZONE PI-RADS 3 LESION WITHOUT EXTRAPROSTATIC EXTENSION, MILDLY MORE CONSPICUOUS FROM 02/25/2020. NO PELVIC LYMPHADENOPATHY OR SUSPICIOUS OSSEOUS LESIONS. Size: 29 cc MRI 02/25/2020 NO FOCAL LESIONS WITH IMAGING FEATURES SUSPICIOUS FOR CLINICALLY SIGNIFICANT DISEASE. NO FABIOLA OR OSSEOUS METASTASIS. PSA: 08/2021: 0.8 02/23/2021: 1.17 08/18/2020: 1.03 02/20/2020: 1.97 ALLERGIES: ALLERGIES No Known Allergies MEDICATIONS: Current Outpatient Medications Medication Sig zolpidem (AMBIEN) 5 mg tablet Take 1 tablet by mouth as needed. ALPRAZolam (XANAX) 0.25 mg tablet Take 1 tablet by mouth once daily. simvastatin (ZOCOR) 20 mg tablet Take 20 mg by mouth once daily. cetirizine (ZYRTEC) 10 mg tablet Take 10 mg by mouth once daily. calcium carbonate (CALTRATE) 600 mg calcium (1,500 mg) tab Take 1 tablet by mouth once daily. multivit-mins/iron/folic/lycop (MV,CA,BKD-YLLH-KN-LYCOPENE ORAL) Take 1 tablet by mouth once daily. omeprazole (PRILOSEC) 20 mg capsule Take 20 mg by mouth once daily. diclofenac, EC, (VOLTAREN) 75 mg EC tablet Take 1 tablet by mouth twice daily as needed. sildenafil (VIAGRA) 100 mg tablet Take 100 mg by mouth once daily. polyethylene glycol 3350 (MIRALAX) 17 gram/dose powder Take by mouth once daily. glucosamine/chondr wise A sod (OSTEO BI-FLEX ORAL) Take by mouth. docusate sodium (COLACE) 100 mg capsule Take 100 mg by mouth twice daily. No current facility-administered medications for this visit. HISTORIES PAST MEDICAL HISTORY Diagnosis Date Arthritis Factor V Leiden (HCC) History of DVT (deep vein thrombosis) Hyperlipidemia PAST SURGICAL HISTORY Procedure Laterality Date BACK SURGERY HX KNEE SURGERY HX Social History Tobacco Use Smoking status: Not on file Smokeless tobacco: Not on file Substance Use Topics Alcohol use: Not on file Drug use: Not on file No family history on file. Review of Systems GENERAL:No weight loss, malaise or fevers SKIN:Negative for lesions, rash, and itching. NEUROLOGIC:Negative for focal numbness or weakness CARDIOVASCULAR: Negative for chest pain, leg swelling or palpitations. RESPIRATORY: Negative for cough, wheezing or shortness of breath. GASTROINTESTINAL: Negative for abdominal discomfort, blood in stools or black stools or change in bowel habits GENITOURINARY: Refer to HPI MUSCULOSKELETAL: Negative for joint pain or swelling, back pain or muscle pain. ENDOCRINE: Negative for cold or heat intolerance, goiter, polyuria, polydipsia. PHYSICAL EXAMINATION: VIDEO EXAM: It was not done. It was a virtual visit. PROBLEMS: 1. Prostate cancer (HCC) - ICD9: 185, ICD10: C61 IMPRESSION: 66 year old male with prostate cancer on active surveillance for Nina 3+3 disease. His last MRI October 2021 showed a PIRADS 3 lesion. Last PSA in August 2021 was 0.8. 1) Prostate cancer, [place] 3+3 disease 2) MRI 0.8 CM LEFT MID ANTERIOR TRANSITION ZONE PI-RADS 3 LESION PLAN: 1) PSA in 6 months 2) TP Prostate Biopsy in 6 months with nitrous gas Scribe Attestation: By signing my name below, I, Candice Julio, attest that this documentation has been prepared under the direction and in the presence of Hugo Garcia M.D. Electronically Signed: Phong Busch. November 23, 2021 12:02 PM Provider Attestation: I, Dr. Hugo Garcia personally performed the services described in this documentation. All medical record entries made by the scribe were at my direction and in my presence. I have reviewed the chart and discharge instructions (if applicable) and agree that the record reflects my personal performance and is accurate and complete. Dr. Hugo Garcia MD November 27, 2021, Hugo Garcia MD I spent more than 30 minutes [id number] with the patient and over half the time was devoted to counseling and/or coordination of care. documented in this encounterMer[facility]05-12-2022 NotePROCEDURE: XR ANKLE LT MIN 3 V, XR FOOT LT MIN 3 VIEWS COMPARISON: 07/22/2019 HISTORY: Pain of left ankle joint FINDINGS: BONES:No acute fracture or dislocation. Moderate enthesopathic spurring of the calcaneus at the Achilles and plantar insertions. Moderate degenerative changes with joint space narrowing marginal osteophyte formation most significant in the midfoot SOFT TISSUES:Negative. No visible soft tissue swelling. EFFUSION:None visible. OTHER: Negative. IMPRESSION: Moderate degenerative changes Electronically authenticated by: KEN REGAN Date: 2021-11-02 11:06[facility]05-12-2022 NotePROCEDURE: XR ANKLE LT MIN 3 V, XR FOOT LT MIN 3 VIEWS COMPARISON: 07/22/2019 HISTORY: Pain of left ankle joint FINDINGS: BONES:No acute fracture or dislocation. Moderate enthesopathic spurring of the calcaneus at the Achilles and plantar insertions. Moderate degenerative changes with joint space narrowing marginal osteophyte formation most significant in the midfoot SOFT TISSUES:Negative. No visible soft tissue swelling. EFFUSION:None visible. OTHER: Negative. IMPRESSION: Moderate degenerative changes Electronically authenticated by: KEN REGAN Date: 2021-11-02 11:06[facility]05-12-2022 NotePROCEDURE: XR FOOT RT MIN 3 VIEWS COMPARISON: . HISTORY: Pain in right foot FINDINGS: BONES:No acute fracture or dislocation. Stable internal hardware with a plate across the second tarsometatarsal joint and plate across the dorsal navicular with multiple screws. Progression of degenerative changes with joint space narrowing and marginal osteophyte formation. Moderate enthesopathic spurring of the calcaneus. SOFT TISSUES:Negative. No visible soft tissue swelling. EFFUSION:None visible. OTHER: Negative. IMPRESSION: Progression of degenerative changes Electronically authenticated by: KEN REGAN Date: 2021-11-02 10:41[facility]05-06-2022 History of Present illness Narrative* Annette Gar RN - 10/27/2021 8:40 AM EDT Radiology Service Progress Note DATE OF SERVICE: October 27, 2021 TIME: 8:58 AM PATIENT WEIGHT: 250 LBS PATIENT IDENTITY VERIFICATION COMPLETED USING TWO (2) STANDARD IDENTIFIERS: Name and Date of confirmed by patient verbally and Name and Date of confirmed by identification band. FALL SCREENING: Has the patient had 2 falls in the last year or 1 fall with injury or currently using an Ambulatory Assistive Device (Walker, Cane, Wheelchair, Crutches, etc.)? No PATIENT GENDER DATA: Male ALLERGIES: Reviewed and unchanged CONTRAST ALLERGY: No EXAM: MRI - CONTRAST TYPE: GROUP II IV SITE: Ambulatory: A peripheral IV was started in the Right forearm with a Angio cath: 22 gauge. and A Saline lock was inserted per protocol IV SITE APPEARANCE: Clean,Dry and Intact SIGNATURE: Annette Gar RN PATIENT NAME: Marco Antonio Parra DATE: October 27, 2021 TIME: 8:58 AM [facility]* Diagnosis Malignant neoplasm of prostate (HCC) Malignant neoplasm of prostate [facility]* Diagnosis Prostate cancer (HCC) Malignant neoplasm of prostate documented [facility] noteNo assessment information availableOhio[facility] Work Phone: Evaluation note* Diagnosis Prostate cancer (HCC)- Primary Malignant neoplasm of prostate documented [facility]* Diagnosis Prostate cancer (HCC)- Primary Malignant neoplasm of prostate [facility]* Diagnosis Elevated PSA- Primary Elevated prostate specific antigen (PSA) documented [facility]* Diagnosis Prostate cancer (HCC)- Primary Malignant neoplasm of prostate documented [facility]* Diagnosis Prostate cancer (HCC)- Primary Malignant neoplasm of prostate documented in this encounter [facility] general Narrative - Reported* Type Description Date Medical History Blood clots Medical History factor V Surgical History hammertoe repair Surgical History vasectomy Surgical History hammer toe Surgical History vasectomy 1997 Surgical History colonoscopy 2009 Surgical History fusion, lisfranc fracture aleks Quarles 05/2016 Surgical History EGD/Colonoscopy (normal- 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 hemorrhoids) 04/15/17 Surgical History PLIF (posterior lumbar interbod y fusion) 04/02/18 Surgical History Right Knee Replacement 2019 Hospitalization History see above [employer] Other Summary Purpose Family History Relationship Condition Age at Onset Recorded Date/T rosa father Sick sinus syndrome Unknown Not Specified Malignant neoplasm of colon Unknown brother Malignant neoplasm of throat Unknown brother Heart disease Unknown brother History of heart surgery Unknown Heart disease Unknown sister Fibromyalgia Unknown Hypertension Unknown Advance Directives Advance Directive Response Recorded Date/ Time Advance Directives Yes April 07, 2018 2:27pm Reason for Referral Specialty Diagnoses / Procedures Referred By Juan Jac t Referred To Contact MR IMAGING Diagnoses Malignant neoplasm of prostate (HCC) Procedures MRI PROSTATE WO/W IVCON MRI PELVIS W/WO CONTRAST Navin Redman MD [address] [place] [address] Mr Imaging Referral ID Status Reason Start Date Expiration Date V isits Requested Visits Authorized Closed Auto-Generate d Referral 10/02/2021 11/06/2021 1 1 Specialty Diagnoses / Procedures Referred By Contac t Referred To Contact MR IMAGING Diagnoses Prostate cancer (HCC) Procedures MRI 3D POST PROCESSING 3D RENDERING W/INTERP&POSTPROC DIFF WORK STATION Jevon Zambrano MD [address] [place] [address] Mr Imaging [place] [address] Referral ID Status Reason Start Date Expiration Date Visits Requested Visits Authorized [id number] Pending Review Auto-Generat ed Referral 3 06/20/2024 1 1 Specialty Diagnoses / Procedures Referred By Contac t Referred To Contact MR IMAGING Diagnoses Prostate cancer (HCC) Procedures MRI PROSTATE WO/W IVCON MRI PELVIS W/O & W/CONTRAST MATERIAL Jevon Zambrano MD [address] [place] [address] Mr Imaging [place] [address] Referral ID Status Reason Start Date Expiration Date Visits Requested Visits Authorized [id number] Pending Review Auto-Generat ed Referral 11/20/2023 06/20/2024 1 1 Chief Complaint and Reason for Visit Chief Complaint M25.562 Chief Complaint M25.562 m43.16 Medications Administered Section Inactive Administered Medications - up to 3 most recent administrations Medication Order MAR Action Action Date Dose Rate Site cephALEXin 500 mg cap(s) (KEFLEX) 500 mg, ORAL, ONCE, 1 dose, On Gwendolyn 04/12/22 at 0830, Please document the antimicrobial indication: Empiric Given 04/12/2022 2:50 PM EDT 500 mg Additional Source Comments (unrecognized sect ion and content) No Status Records FoundNo Status Records FoundNo Status Records FoundNo Status Records FoundNo Status Records FoundNo Status Records FoundNo Status Records FoundNo Status Records FoundNo Status Records FoundNo Status Records Found INFORMATION SOURCE (unrecogn ized section and content) DATE CREATED AUTHOR 12/18/2017 [facility] DATE CREATED AUTHOR AUTHOR'S ORGANIZ ATION 12/18/2017 [facility] DATE CREATED AUTHOR AUTHOR'S ORGANIZ ATION 06/14/2018 [facility] DATE CREATED AUTHOR AUTHOR'S ORGANIZ ATION [facility] DATE CREATED AUTHOR AUTHOR'S ORGANIZ ATION 10/13/2021 [facility] DATE CREATED AUTHOR AUTHOR'S ORGANIZ ATION 10/08/2022 [facility] DATE CREATED AUTHOR AUTHOR'S ORGANIZ ATION 03/12/2023 [facility] DATE CREATED AUTHOR AUTHOR'S ORGANIZ ATION 05/25/2023 [facility] DATE CREATED AUTHOR AUTHOR'S ORGANIZ ATION 06/01/2023 [facility] DATE CREATED AUTHOR AUTHOR'S ORGANIZ ATION 07/20/2023 [facility] EPIC Source Comments (unrecognize d section and content) In the event this informatio n is protected by the Federal Confidentiality of Alcohol and Drug Abuse Patient Records regulations: The Federal rules restrict any use of the information to criminally investigate or prosecute any alcohol or drug abuse patient.[facility] HospitalIn the event this information is protected by the Federal Confidentiality of Alcohol and Drug Abuse Patient Records regulations: The Federal rules restrict any use of the information to criminally investigate or prosecute any alcohol or drug abuse patient.[facility] HospitalIn the event this information is protected by the Federal Confidentiality of Alcohol and Drug Abuse Patient Records regulations: The Federal rules restrict any use of the information to criminally investigate or prosecute any alcohol or drug abuse patient.[facility] HospitalIn the event this information is protected by the Federal Confidentiality of Alcohol and Drug Abuse Patient Records regulations: The Federal rules restrict any use of the information to criminally investigate or prosecute any alcohol or drug abuse patient.[facility] HospitalIn the event this information is protected by the Federal Confidentiality of Alcohol and Drug Abuse Patient Records regulations: The Federal rules restrict any use of the information to criminally investigate or prosecute any alcohol or drug abuse patient.[facility] HospitalIn the event this information is protected by the Federal Confidentiality of Alcohol and Drug Abuse Patient Records regulations: The Federal rules restrict any use of the information to criminally investigate or prosecute any alcohol or drug abuse patient.[facility] HospitalIn the event this information is protected by the Federal Confidentiality of Alcohol and Drug Abuse Patient Records regulations: The Federal rules restrict any use of the information to criminally investigate or prosecute any alcohol or drug abuse patient.[facility] HospitalIn the event this information is protected by the Federal Confidentiality of Alcohol and Drug Abuse Patient Records regulations: The Federal rules restrict any use of the information to criminally investigate or prosecute any alcohol or drug abuse patient.[facility] Reason for Visit (unrecogniz ed section and content) Reason Comments Radiology MRI Specialty Diagnoses / Procedures Referred By Genesis marcos Referred To Contact MR IMAGING Diagnoses Malignant neoplasm of prostate (HCC) Procedures MRI PROSTATE WO/W IVCON MRI PELVIS W/WO CONTRAST Navin Redman MD [address] [place] [address] Mr Imaging Referral ID Status Reason Start Date Expiration Date V isits Requested Visits Authorized Closed Auto-Generate d Referral 10/02/2021 11/06/2021 1 1 Reason Comments Follow Up Reason Comments Appointment Reason Comments Results Reason Comments Prostate Biopsy Transperineal biopsy with nitrous Reason Comments Follow Up Care Teams (unrecognized sec tion and content) Atm Servicer Relationship Specialty Start Date End Date Annette Shah MD [address] [place] [address] PCP - General Internal Medicine 02/21/18 Atm Servicer Relationship Specialty Start Date End Date Annette Shah MD [address] [place] [address] PCP - General Internal Medicine 02/21/18 Atm Servicer Relationship Specialty Start Date End Date Annette Shah MD [address] [place] [address] PCP - General Internal Medicine 02/21/18 Team Status: Inactive Member Role Status Yair Shah MD Primary Care Provider Active Annette Callaway II, MD Attending Provider Active Team Status: Active Member Role Status Yair Shah MD Primary Care Provider Active Team Status: Inactive Member Role Status Dates Annette Shah MD Primary Care Provider Active Preston Tejada MD Attending Provider Active Atm Serv[employer] Relationship Specialty Start Date End Date Annette Shah MD [address] [place] [address] PCP - General Internal Medicine 02/21/18 Atm Servicer Relationship Specialty Start Date End Date Annette Shah MD [address] [place] [address] PCP - General Internal Medicine 02/21/18 Atm Servicer Relationship Specialty Start Date End Date Annette Shah MD [address] [place] [address] PCP - General Internal Medicine 02/21/18 Atm Servicer Relationship Specialty Start Date End Date Annette Shah MD [address] [place] [address] PCP - General Internal Medicine 02/21/18 Atm Servicer Relationship Specialty Start Date End Date Annette Shah MD [address] [place] [address] PCP - General Internal Medicine 11/16/22 Giana Drake MD [address] [place] [address] Urology 01/15/23 Goals (unrecognized section and content) Goals may be documented in a n alternate section FOR RECORDS PERTAINING TO PATIENTS WHO ARE OR HAVE BEEN ENROLLED IN A CHEMICAL DEPENDENCY/SUBSTANCEABUSE PROGRAM, SOME INFORMATION MAY BE OMITTED. This clinical summary was aggregated from multiple sources. Caution should be exercised in using it in the provision of clinical care. This summary normalizes information from multiple sources, and as a consequence, information in this document may materially change the coding, format and clinical context of patient data. In addition, data may be omitted in some cases. CLINICAL DECISIONS SHOULD BE BASED ON THE PRIMARY CLINICAL RECORDS. [facility] [id number] [facility] provides no warranty or guarantee of the accuracy or completeness of information in this document.
[2023-07-30 07:28] LABS: Creatinine Urine Random 81.37 mg/dL (20.00-300.00); Microalbum Creatinine Ratio Ur 15.9 mg/g (0.0-29.9); Microalbumin Urine Random <1.3 mg/dL (<=30.0)
[2023-07-30 08:56] LABS: Anion Gap 11.1; BUN Creatinine Ratio 16.7; Calcium 8.8 mg/dL (8.5-10.1); Carbon Dioxide 32.1 mmol/L (21.0-32.0); Chloride 103 mmol/L (98-107); Estimated GFR (African America >60 (>=60); Estimated GFR (Non-African Ame >60 (>=60); Glucose 113 mg/dL (74-106); Potassium 4.2 mmol/L (3.5-5.1); Sodium 142 mmol/L (136-145)
[2023-07-30 09:08] LABS: Bilirubin Urine NEGATIVE (NEGATIVE); Blood Urine NEGATIVE (NEGATIVE); Clarity Urine CLEAR (CLEAR); Color Urine YELLOW (YELLOW); Glucose Urine UA NEGATIVE (NEGATIVE); Ketones Urine NEGATIVE (NEGATIVE); Leukocyte Esterase Urine NEGATIVE (NEGATIVE); Nitrite Urine NEGATIVE (NEGATIVE); Protein Urine NEGATIVE (NEG/TRACE); Urine Microscopic Indicated NO; Urobilinogen Urine 0.2 EU/dL (0.2-1.0)
== END 2023-07-30 07:00 | disposition home or self-care (01) ==
LOC: LAB 06:59
PROVIDERS: PCP Internal Medicine
DX: I10 Essential (primary) hypertension (principal)
CPT/HCPCS: 36415; 80048; 81003; 82043; 82570

== ENCOUNTER 2023-11-15 07:24 | Outpatient (OUT) | payer MEDICARE, OTHER, SELFPAY ==
--- OUTSIDE RECORDS SUMMARY | 2023-11-15 07:37 | XMS_ITS | CCD ---
Author Organization [facility] ion [facility] LEAD QUALITY TECHNICIAN [facility] Care Team Providers Care Talent Acquisition Partner Name Role Phone ANNETTE BLOCK Unavailable Unavailable ANNETTE BLOCK Unavailable Unavailable Erin Minaya Unavailable Unavailable Rei, Erin Unavailable Unavailable GEORGE DOS SANTOS Unavailable Unavailable ANNETTE BLOCK Primary Care Unavailable ANNETTE BLOCK Referring Unavailable ELCHEYENNE, EHAB A Admitting Unavailable IVETT EHAB A Attending Unavailable Pablo SILVER, Annette Guzman Primary Care Provider Annette Callaway II Unavailable Annette Block MD Primary Care Provider MD Annette Block Primary Care Provider MD Annette Callaway II Attending Provider [phone] MD Preston Tejada Attending Provider Preston Tejada Unavailable Annette Block MD Primary Care Provider DR ANNETTE BLOCK Admitting Unavailable PABLO, DR BRYANT Attending Unavailable PABLO, DR BRYANT Primary Care Unavailable PABLO, DR BRYANT Consulting Unavailable PABLO, DR BRYANT Admitting Unavailable PABLO, DR BRYANT Attending Unavailable PABLO, DR BRYANT Primary Care Unavailable PABLO, DR BRYANT Consulting Unavailable MISC, DR BURRELL Admitting Unavailable MISC, DR BURRELL Attending Unavailable PABLO, DR BRYANT Primary Care Unavailable PABLO, DR BRYANT Consulting Unavailable MISC, DR BURRELL Admitting Unavailable MISC, DR BURRELL Attending Unavailable PABLO, DR BRYANT Primary Care Unavailable MISC, DR BURRELL Consulting Unavailable ELTAHAWEsme, DR VANESSA Consulting Unavailable RON MCCORMICK Admitting Unavailable RON MCCORMICK Attending Unavailable PABLO, DR BRYANT Primary Care Unavailable OVERTON, DR KEN Dunlap Consulting Unavailable RON MCCORMICK Consulting Unavailable JANES MCCORMICKBERLY Admitting Unavailable RON MCCORMICK Attending Unavailable PABLO, DR BRYANT Primary Care Unavailable SAL, DR CHAPIS Campbell Consulting Unavailable JACE, RON Consulting Unavailable PABLO, DR BRYANT Admitting Unavailable HILL, DR BRYANT Attending Unavailable PABLO, DR BRYANT Primary Care Unavailable HILL, DR BRYANT Consulting Unavailable HILL, DR BRYANT Admitting Unavailable HILL, DR BRYANT Attending Unavailable HILL, DR BRYANT Primary Care Unavailable HILL, DR BRYANT Consulting Unavailable REQUEST, DR CASTILLO LISTED Admitting Unavaila ble REQUEST, DR CASTILLO LISTED Attending Unavaila ble PABLO, DR BRYANT Primary Care Unavailable REQUEST, DR CASTILLO LISTED Consulting Unavaila ble Preston Tejada Attending Unavailable Preston Tejada Admitting Unavailable Pablo, Annette Primary Care Unavailable JEOVN ZAMBRANO Attending Unavailab jean-pierre BLOCK, ANNETTE GUZMAN Primary Care Unavailable GIANA PASTRANA Referring Unavailable GIANA PASTRANA Attending Unavailable PABLO, ANNETTE GUZMAN Primary Care Unavailable IVETT, BERRY Attending Annette Hutchins MD Primary Care Provider [phone] JR. MARISSA, YEIMI Otero Attending Unavailnathan CARDENAS JR., YEIMI Otero Referring Unavaila ANNETTE Munoz Attending Unavailable PABLO, ANNETTE Nettles Referring Unavailable Medications Current Medications Medication Drug Class(es) Dates Sig (Normalized) Sig (Original) acetaminophen 500 mg oral tablet (4 sources) Start: 03-26-2018 take 2 tablets by mouth twice daily Acetaminophen (Acetaminophen Extra Strength) 500 mg Tablet Active 1000 MG PO Twice daily March 26, 2018 12:00am acetaminophen (T ylenol Extra Strength) 500 MG tablet every 6 (six) hours. 0 Active amoxicillin 500 mg oral capsule (2 sources) Penicillin-class Antibacterial Start: 11-22-2022 amoxicillin (Amoxil) 500 [...] March 24, 2020 12:00am Vitamin C Active aspirin 81 mg delayed release oral tablet (4 sources) Platelet Aggregation Inhibitor, Nonsteroidal Anti-inflammatory Drug take 1 tablet by mouth in the morning aspirin 81 MG EC tablet Take 81 mg by mouth in the morning. 0 Active Aspirin 81 Activ e atorvastatin 80 mg oral tablet (5 sources) HMG-CoA Reductase Inhibitor take 1 tablet by mouth at bedtime atorvastatin (Lipitor) 80 MG tablet Take 80 mg by mouth at bedtime. 0 Active cholecalciferol 0.05 mg oral tablet (4 sources) Vitamin D Start: 03-24-20 take 1 tablet by mouth once daily Cholecalciferol (Vitamin D3) (Vitamin D3) 50 mcg (2,000 unit) Tablet Active 2000 UNIT PO Daily March 24, 2020 12:00am take 1 capsule by [facility] once in the morning Cholecalciferol (Vitamin D) [...] sodium 75 mg delayed release oral tablet (15 sources) Nonsteroidal Anti-inflammator y Drug Start: 01-09-2023 [...] needed. docusate sodium 100 mg oral capsule (10 sources) take 1 capsule by mouth in [...] once daily in the morning Iron Ps Mhsnezy-O59-Axsft Acid (Poly-Iron 150 Forte) 150-25-1 mg-mcg-mg capsule [...] guidelines link. methocarbamol 750 mg oral tablet (2 sources) Muscle Relaxant Start: End: take 1 tablet by mouth three times daily as needed for muscle spasms methocarbamol (Robaxin) 750 MG tablet Indications: Spasm of muscle of lower back Take 1 tablet (750 mg) by mouth 3 (three) times a day as needed for muscle spasms. 60 tablet 1 03/12/2023 07/31/2023 Discontinued 24 hr metoprolol succinate 25 mg extended release oral tablet (5 sources) beta-Adrenergic Gunner take 1 tablet by mouth every twenty-four hours in the morning metoprolol succinate XL (Toprol XL) 25 MG 24 hr tablet Take 25 mg by mouth in the morning. 0 Active take 1 tablet by radha th every twelve hours Metoprolol Tartrate 25 MG 1 tablet with food Orally Twice a day Active Multiple Minerals-Vitamins (Citracal Plus) tablet (2 sources) take 1 tablet by mouth in the morning Multiple Minerals-Vitamins (Citracal Plus) tablet Take 1 tablet by mouth in the morning. 0 Active Multivitamin preparation (3 sources) Multivitamin Act prisca Mv,Ca,Pqm-Pzuu-Ap-Lycope ne (Centrum Men) 8 mg iron- 200 mcg-600 mcg Tablet (2 sources) Start: 018 Mv,Ca,Bxg-Mgyz-Ng-Lycope ne (Centrum Men) 8 mg iron- 200 mcg-600 mcg Tablet Active 1 TAB PO Daily March 26, 2018 12:00am Nut.Tx.Gluc.Intol,Lac-Fr ee,Soy (Glucerna) Liquid (2 sources) Start: 020 Nut.Tx.Gluc.Intol,Lac-Fr ee,Soy (Glucerna) Liquid Active 1 EACH PO Daily March 24, 2020 12:00am omeprazole 20 mg delayed release oral capsule (15 sources) Proton Pump Inhibitor Start: 023 take [...] by mouth once daily. polyethylene glycol 3350 22338 mg powder for oral solution (13 sources) Osmotic Laxative take 17 g by mouth every twenty-four hours as needed polyethylene glycol, PEG, 3350 (MiraLax) 17 GM/SCOOP powder Take 17 g by mouth Daily as needed. 0 Active MiraLax Active Comment on above: Take by mouth once d aily. Semaglutide,0.25 or 0.5MG/DOS, (Ozempic, 0.25 or 0.5 MG/DOSE,) 2 MG/3ML solution pen-injector (2 sources) Start: 023 Semaglutide,0.25 or 0.5MG/DOS, (Ozempic, 0.25 or 0.5 MG/DOSE,) 2 MG/3ML solution pen-injector Indications: Type 2 Diabetes Mellitus , one pre filled pen Inject 0.5 mg under the skin 1 (one) time per week 9 mL 3 06/11/2023 Active sennosides, senior care 8.6 mg oral tablet (2 sources) Start: 018 take 1 tablet by mouth twice daily Sennosides (Senna) 8.6 mg Tablet Active 8.6 MG PO Twice daily January 10, 2018 12:00am sildenafil 100 mg oral tablet (15 sources) Phosphodiesterase 5 Inhibitor Start: take 1 tablet by mouth every twenty-four hours as needed sildenafil (Viagra) 100 MG tablet Take 100 mg by mouth Daily as needed. 0 01/22/2022 Active Comment on above: Take 100 mg by mouth once daily. traMADol hydrochloride 50 mg oral tablet (4 sources) Opioid Agonist Start: End: take 1 tablet by mouth every eight hours for pain traMADol (Ultram) 50 MG tablet Indications: Primary osteoarthritis involving multiple joints Take 1 tablet (50 mg) by mouth every 8 (eight) hours if needed for severe pain for up to 7 days 21 tablet 0 07/31/2023 08/07/2023 Active take 1 tablet by mouth every six hours traMADol HCl 50 MG 1 tablet as needed Orally every 6 hrs Active triamcinolone acetonide 1 mg/ml topical cream (5 sources) Corticosteroid Start: 03-27-2022 triamcinolone (Kenalog) 0.1 % cream APPLY TO LOWER LEGS TWICE DAILY UNTIL CLEAR, THEN USE NEEDED FOR ITCH 0 03/27/2022 Active Start: 09-13-2016 Kenalog -40 mg Aug, Vitamin D (3 sources) Vitamin D Active Completed/Discontinued Medications Medication Drug Class(es) Dates Sig (Normalized) Sig (Original) ALPRAZolam 0.25 mg oral tablet (14 sources) Benzodiazepine Start: 07-23-2019 take 1 tablet [...] 11:05am cetirizine hydrochloride 10 mg oral tablet (15 sources) Histamine-1 Receptor Antagonist Start: 04-15-2017 take [...] Nonsteroidal Anti-inflammatory Drug, Prostaglandin E1 Analog Start: 017 End: take 1 tablet by mouth twice [...] 1 mL Start: 05-08-2018 Depo-Medrol 40 mg 15 Apr, 2018 40 mg morphine sulfate 15 mg extended release oral tablet (2 sources) Opioid Agonist Start: 04-03-2018 End: 04-14-2018 take 1 tablet by mouth every twelve hours Morphine (Ms Contin) 15 mg tablet extended release Discontinued 15 MG PO Q12H 14 7 April 03, 2018 April 14, 2018 11:05am take w/enough water to swallow whole; do not crush/dissolve/chew/cut/break multivit-mins /iron/folic/l ycop (MV,CA,MIN-IR DL-PV-MDZGDPE E ORAL) (7 sources) Start: 03-26-2018 End: 10-26-2022 take 1 tablet by mouth once daily multivit-mins/iron/folic/lycop (MV,CA,YFJ-JLII-AJ-LYCOPENE ORAL) Take 1 tablet by mouth once daily. 0 03/26/2018 10/26/2022 Discontinued Start: 03-26-2018 take 1 tablet by radha th once daily multivit-mins/iron/folic/lycop (MV,CA,MPC-BZXH-JO-LYCOPENE ORAL) Take 1 tablet by mouth once daily. 0 03/26/2018 Active Comment on above: Take 1 tablet by radha th once daily. oxyCODONE hydrochloride 5 mg oral tablet (2 sources) Opioid Agonist Start: 04-03-20 End: 03-24-20 take 1 tablet by mouth every six hours Oxycodone (Roxicodone) 5 mg Tablet Discontinued 1 - 2 TAB PO Q6H 60 April 03, 2018 March 24, 2020 11:40am [...] 25 zolpidem tartrate 5 mg oral tablet (12 sources) gamma-Aminobutyric Acid-ergic Agonist Start: 07-23-2019 zolpidem [...] [Acute posthemorrhagic anemia] 04-08-2020 Episodic Anxiety disorders (6 sources) Generalized anxiety disorder; Translations: [Generalized anxiety disorder] Onset: 11-19-2022 11-19-2022 Chronic Cancer of prostate (3 sources) History of malignant neoplasm of prostate; Translations: [Personal history of malignant neoplasm of prostate] Onset: 07-13-2020 01-18-2023 Episodic Coagulation and hemorrhagic disorders (11 sources) Factor V Leiden mutation; Translations: [Activated protein C resistance] Onset: 05-25-2022 08-20-2019 Chronic Coronary atherosclerosis and other heart disease (5 sources) Atherosclerotic heart disease of [place] coronary artery without angina pectoris; Translations: [Coronary arteriosclerosis] Onset: 11-19-2022 Chronic Diabetes mellitus without complication (11 sources) Prediabetes; Translations: [Other abnormal glucose] Onset: 01-19-2022 Episodic Disorders of lipid metabolism (19 sources) Hyperlipidemia; Translations: [Hyperlipidemia, unspecified] Onset: 01-24-2022 08-20-2019 Chronic Esophageal disorders (8 sources) Gastroesophageal reflux disease; Translations: [Gastro-esophageal reflux disease without esophagitis] Onset: 11-19-2022 04-15-2017 Chronic Essential hypertension (3 sources) Essential hypertension; Translations: [Essential (primary) hypertension] Onset: 01-18-2023 01-18-2023 Chronic Fracture of lower limb (4 sources) Closed fracture of metatarsal bone; Translations: [Fracture of unspecified metatarsal bone(s), unspecified foot, initial encounter for closed fracture] Onset: 11-10-2021 Episodic Miscellaneous mental health disorders (3 sources) Primary insomnia; Translations: [Primary insomnia] Onset: 11-19-2022 01-18-2023 Chronic Nutritional deficiencies (6 sources) Vitamin D deficiency; Translations: [Vitamin D deficiency, unspecified] Onset: 11-19-2022 11-19-2022 Chronic Osteoarthritis (20 sources) Osteoarthritis of knee; Translations: [Unilateral primary osteoarthritis, right knee] Onset: 11-06-2021 Chronic Other acquired deformities (2 sources) Acquired spondylolisthesis; Translations: [Spondylolisthesis, lumbosacral region] 04-03-2018 Episodic Other acquired deformities (2 sources) Spondylolisthesis, lumbar region Onset: 03-08-2022 Resolved: 03-08-2022 Episodic Other bone disease and musculoskeletal deformities (6 sources) Osteopenia; Translations: [Other specified disorders of bone density and structure, unspecified site] Onset: 11-19-2022 07-24-2023 Episodic Other connective tissue disease (2 sources) History of total knee arthroplasty; Translations: [Presence of right artificial knee joint] 04-08-2020 Chronic Other connective tissue disease (2 sources) Arthrodesis status Onset: 03-08-2022 Resolved: 03-08-2022 Episodic Other fractures (1 source) Stress fracture, unspecified site, subsequent encounter for fracture with routine healing; Translations: [M84.30XD - Stress fracture, unspecified site, subsequent encounter for fracture with routine healing] Onset: 06-11-2018 Episodic Other nutritional; endocrine; and metabolic disorders (8 sources) Obese class II; Translations: [Obesity, unspecified] Onset: 05-22-2019 05-22-2019 Chronic Other nutritional; endocrine; and metabolic disorders (6 sources) Morbid obesity; Translations: [Morbid (severe) obesity due to excess calories] Onset: 11-19-2022 11-19-2022 Chronic Other nutritional; endocrine; and metabolic disorders (1 source) Body mass index 30+ - obesity; Translations: [Body mass index (BMI) 32.0-32.9, adult] 07-31-2023 Chronic Other screening for suspected conditions (not mental disorders or infectious disease) (7 sources) Patient encounter status; Translations: [Encounter for screening for malignant neoplasm of colon] Onset: 10-03-2022 04-15-2017 Episodic Other upper respiratory disease (5 sources) Allergic rhinitis; Translations: [Allergic rhinitis, unspecified] [...] Date Documented Da te Episodic/Chronic Allergic reactions (5 sources) Chronic idiopathic urticaria; Translations: [Idiopathic urticaria] Onset: 11-19-2022 Resolved: 01-18-2023 01-18-2023 Episodic Cancer of prostate (20 sources) Malignant tumor of prostate; Translations: [Malignant neoplasm of prostate] Onset: 11-23-2021 Resolved: 01-18-2023 Chronic Other acquired deformities (8 sources) Lumbar spondylolisthesis ; Translations: [Spondylolisthesi s, lumbar region] Onset: 11-19-2022 11-19-2022 Episodic Other aftercare (4 sources) Other exterminator helper (current) drug therapy; Translations: [OTH [facility] 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 THERAPY] Onset: 05-23-2022 Episodic Other connective tissue disease (4 sources) [...] Resolved: 02-15-2022 Episodic Phlebitis; thrombophlebitis and thromboembolism (17 sources) H/O: Deep vein thrombosis; Translations: [Personal history of other venous thrombosis and embolism] Onset: 10-11-2021 08-20-2019 Episodic Retinal detachments; defects; vascular occlusion; and retinopathy (2 sources) Retinal disorder; 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] Onset: 11-19-2022 Resolved: 01-18-2023 01-18-2023 Chronic Unclassified (1 source) CONTACT W/AND (SUSP) EXPOS COVID-19; Translations: [CONTACT W/AND (SUSP) EXPOS COVID-19] Onset: 02-08-2022 Results Test Name Value Interpretation Reference Range Facility Office Visiton 05-30-2023 Follow-up visit [id number] EmmanuelRoma 1955 M Date Provider Department Center 05/30/2023 [id number], BERRY CARD [facility] Family History Problem Relation Age of Onset Sick sinus syndrome Father Other Other Family Status - Relation Status Age at Father Other Level of Service:54949 MD OFFICE/OUTPATIENT ESTABLISHED LOW MDM 20-[address] [facility] XR lumbar spine AP/LAT/FLX/E XTon 03-04-2023 XR lumbar spine AP/LAT/FLX/EXT [facility] Main [address] [address] XRay Report Signed Patient: Marco Antonio Parra MR#: [id number] 69 : 1955 Acct:[id number] Age/Sex: 67 / M ADM Date: 03/04/23 Loc: XD Room: Type: [facility] Attending Dr: Preston Tejada MD Copies to: [...] Mckinley Marti M.D.03/04/2023 7:34 PM Dictation Location: [place] [address] Transcribed By: [facility] 03/04/231933 Dictated By: Mckinley Marti II, MD 03/04/231931 Signed By: 03/04/231933 [facility] GLYCOHEMOGLOBIN A1Con 2022 ADA RECOMMENDATION SEE BELOW Normal [facility] Comment on above: Result Comment: ADA RECOMMENDED LIMIT 4.0 - 6.0 ADA THERAPEUTIC TARGET < 7.0 ACTION SUGGESTED > 7.0 Performed By: #### A 1C #### [facility] [address] [place] [address] Dr. Chari Lantigua Glucose [Mass/Vol] 126 mg/dL Normal [facility] Comment on above: Performed By: #### A 1C #### [facility] [address] [place] [address] Dr. Chari Lantigua HbA1c (Bld) [Mass fraction] 6.0 % Normal 4.5-6.2 [facility] Comment on above: Performed By: #### A 1C #### [facility] [address] [place] [address] Dr. Chari Lantigua MICROALB CREAT RATIO RANDOMo n 07-21-2022 mALB 3.7 mg/L Normal <=30.0 [facility] Comment on above: Performed By: #### M CRR #### [facility] [address] [place] [address] [address] Chari Lantigua MALB CR RATIO 14.4 mg/g Normal 0.0-29.9 [facility] Comment on above: Performed By: #### M CRR #### [facility] [address] [place] [address] Dr. Chari Lantigua MALB CR RATIO RANGE SEE BELOW Normal [facility] Comment on above: Result Comment: NO M ICROALBUMINURIA 0-29 MG/G CLINICAL MICROALBUMINURIA 30-300 MG/G MACROALBUMINURIA >300 MG/G Performed By: #### M CRR #### [facility] [address] [address] [address] Chari Lantigua URINE CREAT 257.81 mg/dL Normal 20.00-300.[address] [facility] Comment on above: Performed By: #### M CRR #### [facility] [address] [place] [address] [address] Chari Lantigua PROF 14(COMP METB)on 023 Albumin [Mass/Vol] 4.0 g/dL Normal 3.4-5.0 [facility] Comment on above: Performed By: #### C BC #### [facility] [address] [address] [address] Chari Lantigua Albumin/Globulin [Mass ratio] 1.2 {ratio} Normal [facility] Comment on above: Performed By: #### C BC #### [facility] [address] [address] [address] Chari Lantigua ALP [Catalytic activity/Vol] 83 U/L Normal 46-116 [facility] Comment on above: Performed By: #### C BC #### [facility] [address] [place] [address] [address] Chari Lantigua ALT [Catalytic activity/Vol] 46 U/L Normal 16-63 [facility] Comment on above: Performed By: #### C BC #### [facility] [address] [place] [address] Dr. Chari Lantigua Anion gap [Moles/Vol] 14.0 mmol/L Normal [facility] Comment on above: Performed By: #### C BC #### [facility] [address] [place] [address] [address] Chari Lantigua AST [Catalytic activity/Vol] 30 U/L Normal 15-37 [facility] Comment on above: Performed By: #### C BC #### [facility] [address] [place] [address] Dr. Chari Lantigua Bilirubin [Mass/Vol] 0.5 mg/dL Normal 0.2-1.0 [facility] Comment on above: Performed By: #### C BC #### [facility] [address] [place] [address] Dr. Chari Lantigua Calcium [Mass/Vol] 8.9 mg/dL Normal 8.5-10.1 [facility] Comment on above: Performed By: #### C BC #### [facility] [address] [place] [address] Dr. Chari Lantigua Chloride [Moles/Vol] 104 mmol/L Normal 98-107 [facility] Comment on above: Performed By: #### C BC #### [facility] [address] [place] [address] Dr. Chari Lantigua CO2 [Moles/Vol] 28.7 mmol/L Normal 21.0-32.0 [facility] Comment on above: Performed By: #### C BC #### [facility] [address] [place] [address] Dr. Chari Lantigua Creatinine [Mass/Vol] 0.81 mg/dL Normal 0.70-1.30 [facility] Comment on above: Performed By: #### C BC #### [facility] [address] [place] [address] Dr. Chari Lantigua EGFR-AF MONTSERRATIAN >60 Normal >=60 [facility] Comment on above: Performed By: #### C BC #### [facility] [address] [place] [address] Dr. Chari Lantigua EGFR-NON AF MONTSERRATIAN >60 Normal >=60 [facility] Comment on above: Performed By: #### C BC #### [facility] [address] [place] [address] [address] Chari Lantigua Globulin (S) [Mass/Vol] 3.4 g/dL Normal [facility] Comment on above: Performed By: #### C BC #### [facility] [address] [place] [address] Dr. Chari Lantigua Glucose [Mass/Vol] 120 mg/dL Critically high 74-106 [facility] Comment on above: Performed By: #### C BC #### [facility] [address] [place] [address] Dr. Chari Lantigua Potassium [Moles/Vol] 4.7 mmol/L Normal 3.5-5.1 [facility] Comment on above: Performed By: #### C BC #### [facility] [address] [place] [address] Dr. Chari Lantigua Protein [Mass/Vol] 7.4 g/dL Normal 6.4-8.2 [facility] Comment on above: Performed By: #### C BC #### [facility] [address] [place] [address] Dr. Chari Lantigua Sodium [Moles/Vol] 142 mmol/L Normal 136-145 [facility] Comment on above: Performed By: #### C BC #### [facility] [address] [place] [address] Dr. Chari Lantigua Urea nitrogen [Mass/Vol] 21.0 mg/dL Critically high 7.0-18.0 [facility] Comment on above: Performed By: #### C BC #### [facility] [address] [place] [address] Dr. Chari Lantigua Urea nitrogen/Creatinine [Mass ratio] 25.9 mg/mg Normal [facility] Comment on above: Performed By: #### C BC #### [facility] [address] [place] [address] Dr. Chari Lantigua UA RANDOMon 07-21-2022 Bilirubin Ql (U) Negative Normal NEGATIVE [facility] Comment on above: Performed By: #### C BC #### [facility] [address] [place] [address] Dr. Chari Lantigua Clarity (U) CLEAR Normal CLEAR [facility] Comment on above: Performed By: #### C BC #### [facility] [address] [place] [address] Dr. Chari Lantigua Color (U) YELLOW Normal YELLOW [facility] Comment on above: Performed By: #### C BC #### [facility] [address] [place] [address] Dr. Chari Lantigua Glucose Ql (U) Negative Normal NEGATIVE [facility] [place] Comment on above: Performed By: #### C BC #### [facility] [address] [place] [address] Dr. Chari Lantigua Hemoglobin Ql (U) Negative Normal NEGATIVE [facility] Comment on above: Performed By: #### C BC #### [facility] [address] [place] [address] Dr. Chari Lantigua Ketones Ql (U) Negative Normal NEGATIVE [facility] [place] Comment on above: Performed By: #### C BC #### [facility] [address] [place] [address] Dr. Chari Lantigua LEUKOCYTES Negative Normal NEGATIVE [facility] Comment on above: Performed By: #### C BC #### [facility] [address] [place] [address] Dr. Chari Lantigua Nitrite Ql (U) Negative Normal NEGATIVE [facility] [place] Comment on above: Performed By: #### C BC #### [facility] [address] [place] [address] Dr. Chari Lantigua pH (U) 6.0 [pH] Normal 5-9 [facility] Comment on above: Performed By: #### C BC #### [facility] [address] [place] [address] Dr. Chari Lantigua SPEC GRAVITY 1.025 Normal 1.005-<=1.02 5 [facility] Comment on above: Performed By: #### C BC #### [facility] [address] [place] [address] Dr. Chari Lantigua UA PROTEIN Negative Normal NEGATIVE/ TRACE [facility] Comment on above: Performed By: #### C BC #### [facility] [address] [place] [address] Dr. Chari Lantigua Urobilinogen Qn (U) 0.2 {Kyle'U}/dL Normal 0.2 - 1. 0 [facility] Comment on above: Performed By: #### C BC #### [facility] [address] [place] [address] Dr. Chari Lantigua PROF CHEM 8 (BAS METB)on Anion gap [Moles/Vol] 11.3 mmol/L Normal [facility] Comment on above: Performed By: #### C BC #### [facility] [address] [place] [address] Dr. Chari Lantigua Calcium [Mass/Vol] 8.8 mg/dL Normal 8.5-10.1 [facility] Comment on above: Performed By: #### C BC #### [facility] [address] [place] [address] Dr. Chari Lantigua Chloride [Moles/Vol] 103 mmol/L Normal 98-107 [facility] Comment on above: Performed By: #### C BC #### [facility] [address] [place] [address] Dr. Chari Lantigua CO2 [Moles/Vol] 29.2 mmol/L Normal 21.0-32.0 [facility] Comment on above: Performed By: #### C BC #### [facility] [address] [place] [address] Dr. Chari Lantigua Creatinine [Mass/Vol] 0.72 mg/dL Normal 0.70-1.30 [facility] Comment on above: Performed By: #### C BC #### [facility] [address] [address] [address] Chari Lantigua EGFR-AF MONTSERRATIAN >60 Normal >=60 [facility] Comment on above: Performed By: #### C BC #### [facility] [address] [address] [address] Chari Lantigua EGFR-NON AF MONTSERRATIAN >60 Normal >=60 [facility] Comment on above: Performed By: #### C BC #### [facility] [address] [place] [address] Dr. Chari Lantigua Glucose [Mass/Vol] 133 mg/dL Critically high 74-106 [facility] Comment on above: Performed By: #### C BC #### [facility] [address] [place] [address] Dr. Chari Lantigua Potassium [Moles/Vol] 4.5 mmol/L Normal 3.5-5.1 [facility] Comment on above: Performed By: #### C BC #### [facility] [address] [place] [address] Dr. Chari Lantigua Sodium [Moles/Vol] 139 mmol/L Normal 136-145 [facility] Comment on above: Performed By: #### C BC #### [facility] [address] [place] [address] Dr. Chari Lantigua Urea nitrogen [Mass/Vol] 16.0 mg/dL Normal 7.0-18.0 [facility] Comment on above: Performed By: #### C BC #### [facility] [address] [place] [address] Dr. Chari Lantigua Urea nitrogen/Creatinine [Mass ratio] 22.2 mg/mg Normal [facility] Comment on above: Performed By: #### C BC #### [facility] [address] [place] [address] Dr. Chari Lantigua SURGICAL PATHOLOGYon 04-17- 022 Case Report Surgical Pathology Report Case: [id number] Authorizing Provider: Hugo Garcia MD Collected: 04/12/2022 [...] PROSTATE NEEDLE BIOPSY RIGHT, posterior x 2 [facility] Clinical History elevated PSA Clevel and Clinic [...] been determined by the performing laboratory within [facility] s [facility] Pathology and Laboratory Medicine [place] ([facility], [facility], [facility] or [facility]) in a manner consistent with CLIA requirements. One or more of these tests have not been cleared or approved by the FDA. [facility] is regulated under CLIA as qualified to perform high-complexity testing. These tests are used for clinical purposes. They should not be regarded as investigational or for research. Positive and negative controls stain appropriately. [facility] FINAL DIAGNOSIS A. Prostate, left mi d [...] biopsy: - Benign prostate tissue. JOLENE/laurie 04/17/2022 [facility] Gross Description A. PROSTATE NEEDLE BIOPSY LEFT [...] in one cassette. Gross examination performed at [facility], [address] [place] [id number] 04/12/2022 10:13 PM [facility] Performing Lab Diagnostic interpretation performed at [address] [id number] Loader: Gutierrez Jha M.D. [facility] UA DIP, URINE (POC)on 2021 BILIRUBIN UA (POCT) Negative Negative [facility] CLARITY UA (POCT) Clear [facility] COLOR UA (POCT) Yellow [facility] GLUCOSE UA (POCT) Negative Negative mg/dL [facility] HEMOGLOBIN/BLOOD UA (POCT) Negative Negative [facility] KETONE UA (POCT) Negative Negative mg/dL [facility] LEUKOCYTES UA (POCT) Negative Negative [facility] NITRITE UA (POCT) Negative Negative [facility] PH UA (POCT) 6.0 4.5 - 8.0 [facility] Protein Ql (U) Negative Negative mg/dL [facility] SPECIFIC GRAVITY UA (POCT) 1.025 1.005 - 1.030 [facility] UROBILINOGEN UA (POCT) 0.2 E.U./dL Normal E.U./dL [facility] US TRANSRECTAL PROSTATE (ALEXEI S) (POC) JENNIFER USE ONLYon 04-12-2022 [facility] Covid-19 PCR (CVDTBH)on 01-22 SARS-CoV-2 (COVID-19) RNA ILA+probe Ql (Unsp spec) Detected Critically abnormal NOT DETECTED [facility] Comment on above: Result Comment: This test is not yet approved or cleared by the [place] FDA. When there are no FDA-approved or cleared tests available, and other criteria are met, FDA can make tests available under an emergency access mechanism called an Emergency Use Authorization (EUA). The EUA for this test is supported by the [place] of Health and Human Service's (HHS's) declaration [...] longer be used). Performed By: #### C VDTBH #### [facility] [address] [place] [address] Dr. Chari Lantigua INFLUENZA A AND B AGon 02-08 INFLUENZA A AG Negative Normal NEGATIVE SEE COMMENT [facility] Comment on above: Performed By: #### I NFLUAB #### [facility] [address] [place] [address] Dr. Chari Lantigua INFLUENZA B AG Negative Normal NEGATIVE SEE COMMENT [facility] Comment on above: Performed By: #### I NFLUAB #### [facility] [address] [place] [address] Dr. Chari Lantigua INTERNAL CONTROLS Within Normal Limits Normal Wi thin Normal Limits [facility] Comment on above: Performed By: #### I NFLUAB #### [facility] [address] [place] [address] Dr. Chari Lantigua CBC AUTO DIFFon 01-19-2022 BASO # 0.0 103/ul Normal 0.0-0.1 [facility] Comment on above: Performed By: #### C BC #### [facility] [address] [address] [address] Chari Lantigua Basophils/100 WBC (Bld) 0.3 % Normal 0.2-2.0 [facility] Comment on above: Performed By: #### C BC #### [facility] [address] [place] [address] Dr. Chari Lantigua EO # 0.2 103/ul Normal 0.0-0.7 [facility] Comment on above: Performed By: #### C BC #### [facility] [address] [place] [address] Dr. Chari Lantigua Eosinophils/100 WBC (Bld) 3.1 % Normal 0.9-7.0 [facility] Comment on above: Performed By: #### C BC #### [facility] [address] [place] [address] Dr. Chari Lantigua Erythrocyte distribution width (RBC) [Ratio] 13.2 % Normal 11.0-15.0 [facility] Comment on above: Performed By: #### C BC #### [facility] [address] [place] [address] Dr. Chari Lantigua Hematocrit (Bld) [Volume fraction] 43.4 % Normal 42.0-54.0 [facility] Comment on above: Performed By: #### C BC #### [facility] [address] [place] [address] Dr. Chari Lantigua Hemoglobin (Bld) [Mass/Vol] 14.5 g/dL Normal 14.0-18.0 [facility] Comment on above: Performed By: #### C BC #### [facility] [address] [place] [address] Dr. Chari Lantigua IG # 0.03 10e3/ul Normal 0.00-0.03 [facility] Comment on above: Performed By: #### C BC #### [facility] [address] [place] [address] Dr. Chari Lantigua IG % 0.4 % Normal 0.0-0.5 [facility] Comment on above: Performed By: #### C BC #### [facility] [address] [address] [address] Chari Lantigua LYMPH # 1.7 103/ul Normal 1.2-3.8 [facility] Comment on above: Performed By: #### C BC #### [facility] [address] [address] [address] Chari Lantigua Lymphocytes/100 WBC (Bld) 23.1 % Normal 20.5-60.0 [facility] Comment on above: Performed By: #### C BC #### [facility] [address] [address] [address] Chari Lantigua MANUAL DIFF REQ NO Normal [facility] Comment on above: Performed By: #### C BC #### [facility] [address] [place] [address] Dr. Chari Lantigua MCH (RBC) [Entitic mass] 31.3 pg Normal 25.9-34.0 [facility] Comment on above: Performed By: #### C BC #### [facility] [address] [place] [address] Dr. Chari Lantigua MCHC (RBC) [Mass/Vol] 33.4 g/dL Normal 29.9-35.2 [facility] Comment on above: Performed By: #### C BC #### [facility] [address] [place] [address] Dr. Chari Lantigua MCV (RBC) [Entitic vol] 93.7 fL Normal 80.0-94.0 [facility] Comment on above: Performed By: #### C BC #### [facility] [address] [place] [address] Dr. Chari Lantigua MONO # 0.9 103/ul Critically high 0.3-0.[address] [facility] Comment on above: Performed By: #### C BC #### [facility] [address] [place] [address] Dr. Chari Lantigua Monocytes/100 WBC (Bld) 12.1 % Critically high 1.7-12.0 [facility] Comment on above: Performed By: #### C BC #### [facility] [address] [address] [address] Chari Lantigua NEUT # 4.6 103/ul Normal 1.4-6.5 [facility] Comment on above: Performed By: #### C BC #### [facility] [address] [address] [address] Chari Lantigua Neutrophils/100 WBC (Bld) 61.0 % Normal 43.0-75.0 [facility] Comment on above: Performed By: #### C BC #### [facility] [address] [address] [address] Chari Lantigua Platelet mean volume (Bld) [Entitic vol] 8.2 fL Critically low 9.5-13.5 [facility] Comment on above: Performed By: #### C BC #### [facility] [address] [address] [address] Chari Lantigua PLT 219 103/ul Normal 150-450 [facility] Comment on above: Performed By: #### C BC #### [facility] [address] [address] [address] Chari Lantigua RBC 4.63 106/ul Critically low 4.70-6.[address] [facility] Comment on above: Performed By: #### C BC #### [facility] [address] [address] [address] Chari Lantigua WBC 7.5 103/ul Normal 4.0-11.0 [facility] Comment on above: Performed By: #### C BC #### [facility] [address] [address] [address] Chari Lantigua GLYCOHEMOGLOBIN A1Con 2021 ADA RECOMMENDATION SEE BELOW Normal [facility] Comment on above: Result Comment: ADA RECOMMENDED LIMIT 4.0 - 6.0 ADA THERAPEUTIC TARGET < 7.0 ACTION SUGGESTED > 7.0 Performed By: #### C BC #### [facility] [address] [address] [address] Chari Lantigua Glucose [Mass/Vol] 140 mg/dL Normal [facility] Comment on above: Performed By: #### C BC #### [facility] [address] [address] [address] Chari Lantigua HbA1c (Bld) [Mass fraction] 6.5 % Critically high 4.5-6.2 [facility] Comment on above: Performed By: #### C BC #### [facility] [address] [address] [address] Chari Lantigua LIPID PROFILEon 01-19-2022 CHOL-HDL RATIO NORM SEE BELOW Normal [facility] Comment on above: Result Comment: 3.3 - 4.4 LOW RISK 4.4 - 7.1 AVERAGE RISK 7.1 - 11.0 MODERATE RISK >11.0 HIGH RISK Performed By: #### C MP, LIPID #### [facility] [address] [place] [address] Dr. Chari Lantigua Cholesterol [Mass/Vol] 139 mg/dL Normal <=200 [facility] Comment on above: Performed By: #### C MP, LIPID #### [facility] [address] [place] [address] Dr. Chari Lantigua Cholesterol in HDL [Mass/Vol] 42 mg/dL Normal 40-60 [facility] Comment on above: Performed By: #### C MP, LIPID #### [facility] [address] [place] [address] Dr. Chari Lantigua Cholesterol in LDL [Mass/Vol] 71.4 mg/dL Normal [facility] Comment on above: Performed By: #### C MP, LIPID #### [facility] [address] [address] [address] Chari Lantigua Cholesterol.total/C holesterol in HDL [Mass ratio] 3.3 {ratio} Normal [facility] Comment on above: Performed By: #### C MP, LIPID #### [facility] [address] [place] [address] Dr. Chari Lantigua HDL NORMAL > or = 60 mg/dl - LO W CARDIOVASCULAR RISK <40 mg/dl - HIGH CARDIOVASCULAR RISK Normal [facility] Comment on above: Performed By: #### C MP, LIPID #### [facility] [address] [address] [address] Chari Lantigua LDL CALC NORMAL SEE BELOW Normal [facility] Comment on above: Result Comment: <100 mg/dl OPTIMAL 100 - 129 mg/dl NEAR OR ABOVE OPTIMAL 130 - 159 mg/dl BORDERLINE HIGH 160 - 189 mg/dl HIGH >190 mg/dl VERY HIGH Performed By: #### C MP, LIPID #### [facility] [address] [address] [address] Chari Lantigua Triglyceride [Mass/Vol] 128 mg/dL Normal <=150 [facility] Comment on above: Performed By: #### C MP, LIPID #### [facility] [address] [address] [address] Chari Lantigua VLDL CALC 25.6 mg/dL Normal [facility] Comment on above: Performed By: #### C MP, LIPID #### [facility] [address] [place] [address] Dr. Chari Lantigua PROF 14(COMP METB)on 022 Albumin [Mass/Vol] 3.6 g/dL Normal 3.4-5.0 [facility] Comment on above: Performed By: #### C MP, LIPID #### [facility] [address] [place] [address] Dr. Chari Lantigua Albumin/Globulin [Mass ratio] 1.2 {ratio} Normal [facility] Comment on above: Performed By: #### C MP, LIPID #### [facility] [address] [address] [address] Chari Lantigua ALP [Catalytic activity/Vol] 71 U/L Normal 46-116 [facility] Comment on above: Performed By: #### C MP, LIPID #### [facility] [address] [address] [address] Chari Lantigua ALT [Catalytic activity/Vol] 38 U/L Normal 16-63 [facility] Comment on above: Performed By: #### C MP, LIPID #### [facility] [address] [address] [address] Chari Lantigua Anion gap [Moles/Vol] 10.3 mmol/L Normal [facility] Comment on above: Performed By: #### C MP, LIPID #### [facility] [address] [address] [address] Chari Lantigua AST [Catalytic activity/Vol] 26 U/L Normal 15-37 [facility] Comment on above: Performed By: #### C MP, LIPID #### [facility] [address] [address] [address] Chari Lantigua Bilirubin [Mass/Vol] 0.7 mg/dL Normal 0.2-1.0 [facility] Comment on above: Performed By: #### C MP, LIPID #### [facility] [address] [address] [address] Chari Lantigua Calcium [Mass/Vol] 8.5 mg/dL Normal 8.5-10.1 [facility] Comment on above: Performed By: #### C MP, LIPID #### [facility] [address] [address] [address] Chari Lantigua Chloride [Moles/Vol] 105 mmol/L Normal 98-107 [facility] Comment on above: Performed By: #### C MP, LIPID #### [facility] [address] [address] [address] Chari Lantigua CO2 [Moles/Vol] 30.3 mmol/L Normal 21.0-32.0 [facility] Comment on above: Performed By: #### C MP, LIPID #### [facility] [address] [address] [address] Chari Lantigua Creatinine [Mass/Vol] 0.77 mg/dL Normal 0.70-1.30 [facility] Comment on above: Performed By: #### C MP, LIPID #### [facility] [address] [address] [address] Chari Lantigua EGFR-AF [place]TSERR[place]IAN >60 Normal >=60 [facility] Comment on above: Performed By: #### C MP, LIPID #### [facility] [address] [place] [address] Dr. Chari Lantigua EGFR-NON AF MONTSERR[place]IAN >60 Normal >=60 [facility] Comment on above: Performed By: #### C MP, LIPID #### [facility] [address] [address] [address] Chari Lantigua Globulin (S) [Mass/Vol] 3.0 g/dL Normal [facility] Comment on above: Performed By: #### C MP, LIPID #### [facility] [address] [address] [address] Chari Lantigua Glucose [Mass/Vol] 149 mg/dL Critically high 74-106 [facility] Comment on above: Performed By: #### C MP, LIPID #### [facility] [address] [address] [address] Chari Lantigua Potassium [Moles/Vol] 4.6 mmol/L Normal 3.5-5.1 [facility] Comment on above: Performed By: #### C MP, LIPID #### [facility] [address] [address] [address] Chari Lantigua Protein [Mass/Vol] 6.6 g/dL Normal 6.4-8.2 [facility] Comment on above: Performed By: #### C MP, LIPID #### [facility] [address] [address] [address] Chari Lantigua Sodium [Moles/Vol] 141 mmol/L Normal 136-145 [facility] Comment on above: Performed By: #### C MP, LIPID #### [facility] [address] [address] [address] Chari Lantigua Urea nitrogen [Mass/Vol] 12.0 mg/dL Normal 7.0-18.0 [facility] Comment on above: Performed By: #### C MP, LIPID #### [facility] [address] [address] [address] Chari Lantigua Urea nitrogen/Creatinine [Mass ratio] 15.6 mg/mg Normal [facility] Comment on above: Performed By: #### C MP, LIPID #### [facility] [address] [address] FOOT RT WO [...] CHAPIS HUANG Date: 2021-11-06 09:52 Normal [facility] MRI PROSTATE WO/W IVCONon [facility] HOMOCYSTEINEon 10-12-2021 Homocyst(e)ine, Plasma 7.7 umol/L Normal 0.0-17.2 [facility] Comment on above: Performed By: #### H OMCY #### [facility] [address] [place] [address] Dr. Chari Lantigua ANTI-BETA 2 GLYCOPROTEIN 1on 10-06-2021 ANTI B2GP1 IGG 0.1 g units Normal 0.0-19.[address] [facility] Comment on above: Performed By: #### 9 [id number], [id number] #### [facility] [address] [place] [address], [facility] ANTI B2GP1 IGM 1.7 m units Normal 0.0-19.[address] [facility] Comment on above: Performed By: #### 9 [id number], [id number] #### [facility] [address] [place] [address], [facility] ANTICARDIOLIPIN ANTIBODYon 0 10-06-2021 CARDIOLIPIN IGG 1.6 GPL Normal 0.0-22.[address] [facility] Comment on above: Performed By: #### 9 [id number], [id number] #### [facility] [address] [place] [address], [facility] CARDIOLIPIN IGM 0.9 MPL Normal 0.0-10.[address] [facility] Comment on above: Performed By: #### 9 [id number], [id number] #### [facility] [address] ANTITHROMBIN III ACTIVITYon 10-06-2021 AT 3 ACTIVITY 100 % Normal 70-[address] [facility] Comment on above: Performed By: #### 5 [id number], [id number], [id number], [id number] #### [facility] [address] FACTOR V LE[place] [id number] [place]UT[place] [id number] 10-06-2021 FACTOR V LEIDEN Heterozygous Abnormal [facility] Comment on above: Result Comment: Alem cation for testing: Assess genetic risk for thrombosis. HETEROZYGOUS: One copy of the factor V Leiden variant, c.1601G>A; p.[id number], was detected. This is associated with activated [...] function in the F5 gene variant c.1601G>A (p.[id number]). Legacy nomenclature: R506Q (1691G>A) CLINICAL SENSITIVITY: 20-50 percent of individuals with an isolated VTE have the FVL variant. METHODOLOGY: Polymerase chain reaction and fluorescence monitoring. ANALYTICAL SENSITIVITY AND SPECIFICITY: 99 percent. LIMITATIONS: Diagnostic errors can occur due to rare sequence variations. F5 gene mutations, other than p.[id number], will not be detected. This test was developed and its performance characteristics determined by [facility]. It has not been cleared or approved by the US Food and Drug Administration. This test was performed in a CLIA certified laboratory and is intended for clinical purposes. Counseling and informed consent are recommended for genetic testing. Consent forms are available online. Performed By: [facility] [address] [place] [id number] Loader: Harriett Martins MD FACV SPECIMEN Whole Blood Normal [facility] LUPUS ANTICOAGULANTon 2021 LUPUS ANTICOAGUL Negative Normal NEGATIVE [facility] Comment on above: Result Comment: BY H EXAGONAL PHASE PHOSPHOLIPID METHODOLOGY Performed By: #### 5 [id number], [id number], [id number], [id number] #### [facility] [address] [facility] [place] [address], [facility] PROTEIN C ACTIVITYon 022 PROTEIN C ACTIV 110 % Normal 60-[address] [facility] Comment on above: Performed By: #### 5 [id number], 63939, 78090, [id number] #### [facility] [address] [facility] [place] [address], [facility] PROTEIN S ACTIVITYon 022 PROTEIN S ACTIV 81 % Normal 60-[address] [facility] Comment on above: Performed By: #### 5 3017, 96809, 92920, 50455 #### [facility] [address] PROTHROMBIN (F2) [id number] 60on 10-06-2021 PROTHROMBIN FRET ( PCR AND FRET) Negative Normal [facility] Comment on above: Result Comment: Alem cation for testing: Assess genetic risk for thrombosis. NEGATIVE: The Factor II, prothrombin W52571L mutation, was not detected. Other causes of [...] M.D., Ph.D. 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 PATHOGENIC VARIANT TESTED: F2 c.*97G>A (Z50674B). CLINICAL SENSITIVITY FOR VENOUS THROMBOSIS: Approximately 10 percent. METHODOLOGY: Polymerase chain reaction and fluorescence monitoring. ANALYTICAL SENSITIVITY AND SPECIFICITY: 99 percent. LIMITATIONS: Diagnostic errors can occur due to rare sequence variations. F2 gene variants, other than c.*97G>A (U41216Z), will not be detected. This test was developed and its performance characteristics determined by [facility]. It has not been cleared or approved by the US Food and Drug Administration. This test was performed in a CLIA certified laboratory and is intended for clinical purposes. Counseling and informed consent are recommended for genetic testing. Consent forms are available online. Performed By: [facility] [address] [place] [id number] Loader: Harriett Martins MD PT PCR SPECIMEN Whole Blood Normal [facility] Cardiovascular Lab Reporton 11-19-2020 Cardiovascular Lab Report [facility] Patient Name: Marco Antonio Parra [facility] Von MR #: [id number] Department of Physician: Donna Faith M.D. Division of Service Date: 11/18/2020 Cardiology Birthdate: 1955 Adult Cardiovascular Room #: [address] [place] [address] Cardiovascular Laboratory Report FINAL IMPRESSIONS: 1. Severe, [...] the left radial artery was obtained. A 6-Nigerian 11 cm sheath was inserted without difficulty. [...] Berry Fisher M.D. Date Dict: 11/18/2020/02:31 P/Berry Fsiher M.D. Date Trans: 11/19/2020 05:18 A/aidan [id number] cc: Annette Block M.D. [address] [place] [address] [place] [address] CARDIAC SCORING Addendum Begins Patient Name: [...] INDICATION: Hyperlipidemia, unspecified. COMPARISON: None. ACCESSION NUMBER(S): [id number] ORDERING CLINICIAN: ANNETTE BLOCK TECHNIQUE: Using prospective ECG gating, CT scan [...] Calcification can be calcuate using link below https://www.[email or web address]-[email or web address] org/MESACHDRisk/MesaRis kScore/RiskScore.aspx Carroll et al. JACC 2014 (http://dx.doi.org/10.1 016/j.j acc.2014.08.035) Reading Special Education Resource Teacher: Dr. Vaughn Park, Date: 10/24/2020 11:12 am Electronically signed by: MCKINLEY FARR MD [facility] Lower Ext/No Jt/w/oon 2017 Lower Ext/No Jt/w/o [facility] Er[address] [facility] [place] [place], [place] [address]Oaqod Ext/No Jt/w/oMR#: [id number] Acct: [id number]: MARCO ANTONIO PARRA Rep #: [id number]: 1955 Mic 63 From: Vincent Grier MDPCP: OUT OF TOWN DOCTOR Status: REG CLIStudy: Lower Ext/No Jt/w/o Date of Exam: 06/10/18Exam# [id number] Ordering Dr: Erin MinayaADDENDUM by Dajuan Camejo MD on 06/11/18 at [...] 14:38 ESTTel , Service support , 12 1433Date cc: Erin Minaya DPMic; OUT OF TOWN DOCTOR *SignedADDENDUM by Dajuan [...] 14:38 ESTTel , Service support , 12 1431Date cc: Erin Minaya DPM; OUT OF TOWN DOCTOR *SignedADDENDUM by Dajuan Camejo MD on 06/11/18 at 1438ORDER #: [id number] MRI/Lower Ext/No Jt/w/o108/12/17 1445Date cc: Erin Minaya DPM; OUT OF TOWN DOCTOR *SignedADDENDUM by Dajuan Camejo MD on 06/11/18 at 1438ORDER #: [id number] MRI/Lower Ext/No Jt/w/o108/12/17 1445Date cc: Erin Minaya [...] brevis muscle.Normal subcutis adipose space. ORDER #: [id number] MRI/Lower Ext/No Jt/w/oIMPRESSION:Postop erative changes are seen with fusion at the second tarsometatarsalarticula tion. 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.Marrow edema with bone bruise or stress injury of the fourth metatarsal.Arthritic changes.Electronically Signed:Vincent Grier MD at 21:17 ESTTel , Service support , MJ: Erin Minaya DPM; OUT OF TOWN DOCTOR Brick Shader:Signed Normal [facility] Vital Signs Date Time Vital Sign Value Performing Clinician Facility 07-31-2023 09:03-0500 Body height 172.7 cm Yudy Risaliti LIFTER DRIVER Work Phone: [facility] 07-31-2023 09:03-0500 Body mass index (BMI) [Ratio] 32.84 kg/m2 Yudy Risaliti LIFTER DRIVER Work Phone: [facility] 07-31-2023 09:03-0500 Body weight 97.98 kg Yudy Risaliti LIFTER DRIVER Work Phone: [facility] 07-31-2023 09:03-0500 Diastolic blood pressure 76 mm[Hg] Yudy Risaliti LIFTER DRIVER Work Phone: [facility] 07-31-2023 09:03-0500 Heart rate 74 /min Yudy Risaliti LIFTER DRIVER Work Phone: [facility] 07-31-2023 09:03-0500 SaO2% (BldA) [Mass fraction] 96 % Yudy Risaliti LIFTER DRIVER Work Phone: [facility] 07-31-2023 09:03-0500 Systolic blood pressure 124 mm[Hg] Yudy Risaliti LIFTER DRIVER Work Phone: [facility] 03-05-2023 11:20-0400 Body height 172.72 cm Preston Tejada Other [facility] Other 03-05-2023 11:20-0400 Body mass index (BMI) [Ratio] 32.99 kg/m2 Preston Tejada Other [facility] Other 03-05-2023 11:20-0400 Body weight 98.43 kg Presotn Tejada Other [facility] Other 03-05-2023 11:20-0400 Diastolic blood pressure 80 mm[Hg] Preston Tejada Other [facility] Other 03-05-2023 11:20-0400 Systolic blood pressure 126 mm[Hg] Preston Tejada Other [facility] Other 03-08-2022 12:40-0400 Body height 172.72 cm Preston Tejada Other [facility] Other 03-08-2022 12:40-0400 Body mass index (BMI) [Ratio] 36.94 kg/m2 Preston Tejada Other [facility] Other 03-08-2022 12:40-0400 Body weight 110.22 kg Preston Tejada Other [facility] Other 02-15-2022 12:30-0400 Body height 172.72 cm Annette Cole II Other [facility] Other 02-15-2022 12:30-0400 Body mass index (BMI) [Ratio] 36.94 kg/m2 Annette Cole II Other [facility] Other 02-15-2022 12:30-0400 Body weight 110.22 kg Annette Nilton II Other [facility] Other Encounters Encounter Date Encounter Type Care Provider Facility Start: 07-31-2023 End: 07-31-2023 ambulatory ANNETTE BLOCK Not Available Start: 07-31-2023 End: 07-31-2023 Office outpatient visit 25 minutes Yudy Gupta NP Work Phone: [facility] Comment on above: Essential (primary) hypertension (CMS/HCC) (Primary Dx); Pure hypercholesterolemia (CMS/HCC); Prediabetes; 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 (CMS/HCC); Gastroesophageal reflux disease without esophagitis; Generalized anxiety disorder (CMS/HCC); Osteopenia of multiple sites; Primary insomnia; Primary osteoarthritis involving multiple joints; Factor V Leiden (CMS/HCC); Vitamin D deficiency; History of malignant neoplasm of prostate; Morbid obesity (CMS/HCC); BMI 32.0-32.9,adult Start: 07-25-2023 Chart abstracting Annette nettles MD Work Phone: [facility] Start: 07-15-2023 End: 07-16-2023 ambulatory YEIMI RICEHY Not Available Start: 05-30-2023 End: 05-30-2023 ambulatory AB [facility] Start: 05-22-2023 End: 05-22-2023 ambulatory JEVON ZAMBRANO Facility:[facility] Start: 05-22-2023 End: 05-22-2023 ambulatory Jevon Zambrano MD Work Phone: Urology Comment on above: Prostate cancer (HCC ) (Primary Dx) Start: 05-22-2023 End: 05-22-2023 Telemedicine consultation with patient Jevon Zambrano MD Work Phone: [facility] Start: 03-05-2023 End: 03-05-2023 ambulatory Preston Tejada Other [facility] Other Start: 03-05-2023 Office outpatient vi sit 15 minutes Preston Tejada [facility] Start: 03-04-2023 End: 03-04-2023 ambulatory Preston Tejada Facility:[facility] Start: 10-26-2022 End: 10-26-2022 ambulatory GIANA PASTRANA Facility:[facility] Start: 10-26-2022 End: 05-05-2023 ambulatory Giana Pastrana MD Work Phone: Urology Comment on above: Prostate cancer (HCC ) (Primary Dx) Start: 10-26-2022 End: 10-26-2022 Telemedicine consultation with patient Giana Pastrana MD Work Phone: [facility] Start: 10-03-2022 End: 10-04-[address] DOCTOR REVELES Facility:[facility] Start: 07-21-2022 End: 07-22-[address] ANNETTE BLOCK Facility:[facility] Start: 05-23-2022 End: 05-24-[address] ANNETTE BLOCK Facility:[facility] Start: 04-20-2022 Telephone encounter Giana garcia MD Work Phone: Urology Comment on above: Results Start: 04-12-2022 End: 04-24-2022 Patient encounter procedure Hugo Garcia MD Work Phone: Urology Comment on above: Elevated PSA (Primar y Dx) Start: 04-11-2022 End: 04-12-[address] CASTILLO LISTED REQUEST Facility: Start: 04-10-2022 Orders Only Navin Redman MD Work Phone: Urology Comment on above: Prostate cancer (HCC ) (Primary Dx) Start: 03-08-2022 End: 03-08-2022 ambulatory Preston Tejada Other [facility] Other Start: 03-08-2022 Office outpatient vi sit 15 minutes Preston Tejada [facility] Start: 03-07-2022 End: 03-07-2022 Patient encounter procedure MD Annette Block Work Phone: [facility] [place] Start: 02-21-2022 Telephone encounter Giana garcia MD Work Phone: Urology Comment on above: Appointment Start: 02-15-2022 End: 02-15-2022 ambulatory Annette Callaway II Other [facility] Other Start: 02-15-2022 Office outpatient ne w 45 minutes Annette Callaway II [facility] Start: 02-15-2022 End: 02-15-2022 Patient encounter procedure MD Annette Block Work Phone: [facility] Start: 02-08-2022 End: 02-08-[address] ANNETTE BLOCK Facility:[facility] Start: 01-19-2022 End: 01-20-[address] ANNETTE BLOCK Facility:[facility] Start: 11-23-2021 End: 11-23-2021 ambulatory Hugo Garcia MD Work Phone: Urology Comment on above: Prostate cancer (HCC ) Start: 11-23-2021 End: 11-23-2021 Telemedicine consultation with patient Hugo Garcia MD Work Phone: [facility] Start: 11-06-2021 End: 11-07-2021 ambulatory RON MCCORMICK Facility:[facility] Start: 11-02-2021 End: 11-03-2021 ambulatory RON JACE Facility:[facility] Start: 10-27-2021 End: 10-27-2021 Subsequent hospital visit by physician Mri 6 Radio Main Q (I-Stat/1.5t/3t) Work Phone: [facility] Comment on above: Malignant neoplasm o f prostate (HCC) [C61] Start: 10-11-2021 End: 10-12-[address] DOCTOR REVELES Facility:[facility] Start: 11-18-2020 End: 11-19-2020 ambulatory ANNETTE BLOCK Facility:[facility] Start: 06-10-2018 Patient encounter procedure Erin ohod Facility:[facility] Start: 02-06-2017 Ambulatory ANNETTE PABLO Facility:[id number] Start: 02-06-2017 Ambulatory Facility:9 507 Procedures Date Procedure Procedure Detail Performing Clinician Start: 10-03-[address] ANNETTE BLOCK Comment on above: Performed By: #### P SAD #### [facility] [address] [place] [address] Dr. Chari Lantigua Start: 04-12-2022 Level iv surg pathol ogy gross&microscopic exam Hugo Garcia MD Work Phone: Start: 04-12-2022 Us transrct prstate vol brachytx plnning spx Hugo Garcia MD Work Phone: Start: 04-12-2022 Urnls dip stick/tabl et rgnt auto w/o microscopy Hugo Garcia MD Work Phone: Start: 04-11-[address] ANNETTE BLOCK Comment on above: Performed By: #### P SAD #### [facility] [address] [place] [address] Dr. Chari Lantigua Start: 03-07-2022 X-ray of lumbar spin e, six views including bending views MD Annette Block Work Phone: Start: 02-15-2022 End: 02-15-2022 Pelvis X-ray MD Annette Block Work Phone: Start: 10-27-2021 Mri pelvis w/o & w/contrast material Navin Redman MD Work Phone: Start: 04-15-2017 Colonoscopy Annette nettles MD Work Phone: Plan of Treatment Date Care Activity Detail Author Start: 02-04-2028 Urine microalbumin profile DTaP,Tdap,Td Vaccine (2 - Td or Tdap) [facility] Start: 10-04-2027 PROSTATE CANCER SCREENING DISCUSSION PROSTATE CANCER SCREENING DISCUSSION [facility] Start: 04-15-2027 Screening for malignant neoplasm of colon [facility] Start: 07-30-2024 Urine screening for protein Diabetes: Urine Protein Screening [facility] Start: 07-20-2024 End: 07-20-2024 Patient encounter procedure 07/20/2024 8:00 AM EST Office Visit [facility] [address] [place] [address] Jr. Yeimi Cardenas, DO [address] [place] [address] [facility] Start: 02-13-2024 End: 02-13-2024 Patient encounter procedure 02/13/2024 9:15 AM EDT Office Visit [facility] [address] [place] [id number] Annette Block MD [address] [place] [address] [facility] Start: 01-29-2024 End: 07-31-2024 25-hydroxyvitamin D3 [Mass/volume] in Serum or Plasma Vitamin D 25 hydroxy Lab Routine Vitamin D deficiency Expected: 01/29/2024 (Approximate), Expires: 07/31/2024 [facility] Comment on above: Expected: 01/29/2024 (Approximate), Expi res: 07/31/2024 Start: 01-29-2024 End: 07-31-2024 CBC W Auto Differential panel - Blood CBC and differential Lab Routine Essential (primary) hypertension (CMS/HCC) Expected: 01/29/2024 (Approximate), Expires: 07/31/2024 [facility] Work Phone: Comment on above: Expected: 01/29/2024 (Approximate), Expi res: 07/31/2024 Start: 01-29-2024 End: 01-29-2024 Comprehensive metabolic 2000 panel - Serum or Plasma Comprehensive metabolic panel Lab Routine Essential (primary) hypertension (CMS/HCC) Expected: 01/29/2024 (Approximate), Expires: 01/29/2024 [facility] Comment on above: Expected: 01/29/2024 (Approximate), Expi res: 01/29/2024 Start: 01-29-2024 End: 07-31-2024 Lipid 1996 panel - Serum or Plasma Lipid panel Lab Routine Pure hypercholesterolemia (CMS/HCC) Expected: 01/29/2024 (Approximate), Expires: 07/31/2024 [facility] Comment on above: Expected: 01/29/2024 (Approximate), Expi res: 07/31/2024 Start: 01-17-2024 DIABETES SCREEN DIABETES SCREEN [facility] Start: 01-17-2024 Diabetes Screening Diabetes Screening [facility] Start: 11-20-2023 End: 06-20-2024 MRI PROSTATE WO/W IVCON MRI PROSTATE WO/W IVCON Radiology Routine Prostate cancer (HCC) Expected: 11/20/2023, Expires: 06/20/2024 [facility] Work Phone: Comment on above: Expected: 11/20/2023, Expires: Start: 11-20-2023 End: 02-19-2024 Prostate specific Ag [Mass/volume] in Serum or Plasma PSA/PROSTSPECAG DIAG Lab Routine Prostate cancer (HCC) Expected: 11/20/2023, Expires: 02/19/2024 [facility] Work Phone: Comment on above: Expected: 11/20/2023, Expires: Start: 07-31-2023 End: 07-31-2023 Patient encounter procedure 07/31/2023 9:15 AM EST Office Visit [facility] [address] [place] [address] Annette Block MD [address] [place] [address] Essential (primary) hypertension (CMS/HCC) (Primary Dx); Pure hypercholesterolemia (CMS/HCC); Prediabetes; 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 (CMS/HCC); Gastroesophageal reflux disease without esophagitis; Generalized anxiety disorder (CMS/HCC); Osteopenia of multiple sites; Primary insomnia; Primary osteoarthritis involving multiple joints; Factor V Leiden (CMS/HCC); Vitamin D deficiency; History of malignant neoplasm of prostate; Morbid obesity (CMS/HCC) [facility] Comment on above: Essential (primary) hypertension (CMS/HC C) (Primary Dx); Pure hypercholesterolemia (CMS/HCC); Prediabetes; 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 (CMS/HCC); Gastroesophageal reflux disease without esophagitis; Generalized anxiety disorder (CMS/HCC); Osteopenia of multiple sites; Primary insomnia; Primary osteoarthritis involving multiple joints; Factor V Leiden (CMS/HCC); Vitamin D deficiency; History of malignant neoplasm of prostate; Morbid obesity (CMS/HCC) Start: 07-21-2023 Urine screening for protein Diabetes: Urine Protein Screening [facility] Start: 04-28-2023 End: 10-27-2023 Prostate specific Ag [Mass/volume] in Serum or Plasma PSA/PROSTSPECAG DIAG Lab Routine Prostate cancer (HCC) Expected: 04/28/2023, Expires: 10/27/2023 [facility] Work Phone: Comment on above: Expected: 04/28/2023, Expires: Start: 10-19-2022 Hemoglobin A1c measurement Diabetes: Hemoglobin A1C [facility] Start: 10-19-2022 End: 12-19-2022 Prostate specific Ag [Mass/volume] in Serum or Plasma PSA/PROSTSPECAG DIAG Lab Routine Prostate cancer (HCC) Expected: 10/19/2022, Expires: 12/19/2022 [facility] Work Phone: Comment on above: Expected: 10/19/2022, Expires: Start: 06-24-2022 ADVANCE DIRECTIVE DISCUSSION ADVANCE DIRECTIVE DISCUSSION [facility] Start: 06-24-2022 DEPRESSION ASSESSMENT DEPRESSION ASSESSMENT [facility] Start: 04-10-2022 End: 03-18-2023 Prostate specific Ag [Mass/volume] in Serum or Plasma PSA/PROSTSPECAG DIAG Lab Routine Prostate cancer ([facility]) Expected: 04/10/2022 (Approximate), Expires: 03/18/2023 [facility] Work Phone: Comment on above: Expected: 04/10/2022 (Approximate), Expi res: 03/18/2023 Start: 02-22-2022 Influenza vaccination INFLUENZA (#1) [facility] Start: 01-16-2022 Pneumococcal Vaccine: 65+ (2 - PCV) Pneumococcal Vaccine: 65+ (2 - PCV) [facility] Start: 01-16-2022 Pneumococcal Vaccine: 65+ Years (2 - PCV) Pneumococcal Vaccine: 65+ Years (2 - PCV) [facility] Start: 06-24-2021 ADVANCE DIRECTIVE DISCUSSION ADVANCE DIRECTIVE DISCUSSION [facility] Start: 06-24-2021 DEPRESSION ASSESSMENT DEPRESSION ASSESSMENT [facility] Start: 06-10-2021 COVID-19 VACCINE (5 - Booster for Moderna series) COVID-19 VACCINE (5 - Booster for Moderna series) [facility] Start: 2021 Glaucoma screening Diabetes: Retinopathy Screening [facility] Start: 2020 PNEUMOCOCCAL: 65+ (1 - PCV) PNEUMOCOCCAL: 65+ (1 - PCV) [facility] Start: 2020 PNEUMOVAX AGE 65 AND OVER WITH 5YR LOOKBACK (#1) PNEUMOVAX AGE 65 AND OVER WITH 5YR LOOKBACK (#1) [facility] Start: 2015 RSV Vaccine (1 - 1-dose 60+ series) RSV Vaccine (1 - 1-dose 60+ series) [facility] Start: 2010 PROSTATE CANCER SCREENING DISCUSSION PROSTATE CANCER SCREENING DISCUSSION [facility] Start: 2005 SHINGRIX VACCINE (1 of 2) SHINGRIX VACCINE (1 of 2) [facility] Start: 2000 COLOGUARD (FIT-DNA) COLOGUARD (FIT-DNA) [facility] Start: 2000 Colonoscopy COLONOSCOPY [facility] Start: 2000 COLORECTAL CANCER SCREENING COLORECTAL CANCER SCREENING [facility] Start: [address] COLONOGRAPHY [facility] Start: 2000 FECAL OCCULT BLOOD FECAL OCCULT BLOOD [facility] Start: 2000 SIGMOIDOSCOPY SIGMOIDOSCOPY [facility] Start: 1990 Lipid 1996 panel - Serum or Plasma Lipid Screening [facility] Start: 1990 LIPID SCREEN LIPID SCREEN [facility] Start: 1974 SHINGRIX VACCINE (1 of 2) SHINGRIX VACCINE (1 of 2) [facility] Start: 1974 Urine microalbumin profile DTAP,TDAP,TD (1 - Tdap) [facility] Start: 1973 HEPATITIS C SCREENING HEPATITIS C SCREENING [facility] Start: 1967 Adult depression screening assessment DEPRESSION SCREENING [facility] Start: 1961 PNEUMOCOCCAL: 65+ (1 - PCV) PNEUMOCOCCAL: 65+ (1 - PCV) [facility] Start: 1955 Screening for malignant neoplasm of colon [facility] End: 06-20-2024 MRI 3D POST PROCESSING MRI 3D POST PROCESSING Radiology Routine Prostate cancer (HCC) 1 Occurrences starting 05/22/2023 until 06/20/2024 [facility] Work Phone: Comment on above: 1 Occurrences starting 05/22/2023 until 06/20/2024 [facility] Immunizations Immunization Date Immunization Notes Care Provider Jamila kelly 05-26-2023 RSV, recombinant, pr otein subunit RSVpreF, adjuvant reconstitu, 120mcg/0.5mL, PF (Arexvy) Annette Block MD Work Phone: [facility] 04-14-2023 Influenza, Seasonal, Quadrivalent, Adjuvanted Annette Block MD Work Phone: [facility] 04-14-2023 SARS-COV-2 (COVID-19 ) vaccine, mRNA, spike protein, LNP, PF, wellington-sucrose, 30 mcg/0.3 mL Annette Block MD Work Phone: [facility] 04-14-2022 Influenza, Seasonal, Quadrivalent, Adjuvanted Annette Block MD Work Phone: [facility] 06-04-2021 zoster vaccine recombinant Adrian Block MD Work Phone: [facility] 04-02-2021 Influenza, Seasonal, Quadrivalent, Adjuvanted Annette Block MD Work Phone: [facility] 04-02-2021 zoster vaccine recombinant Adrian Block MD Work Phone: [facility] 03-28-2021 SARS-CoV-2, Unspecified Walt Block MD Work Phone: [facility] 01-16-2021 pneumococcal polysaccharide vaccine, 23 valent Annette Block MD Work Phone: [facility] 03-22-2020 influenza, injectabl e, quadrivalent, preservative free Annette Block MD Work Phone: [facility] 05-25-2019 influenza, injectabl e, quadrivalent, preservative free Annette Block MD Work Phone: [facility] 03-17-2018 influenza, injectabl e, quadrivalent, preservative free Annette Block MD Work Phone: [facility] 02-03-2018 tetanus toxoid, redu umang diphtheria toxoid, and acellular pertussis vaccine, adsorbed Annette Block MD Work Phone: [facility] 01-02-2017 zoster vaccine, live Annette Block MD Work Phone: [facility] Payers Date Payer Category Payer Medicare [id number] 2023 Medicare [id number] 2023 Medicare [id number] 2022 Unknown [id number] 2019 Unknown [id number] 2019 Unknown MMO MMO [employer] [id number] 2019-Present [phone] [address] [place] [address] PPO [id number] 2019 Unknown [id number] 2018 Self-pay 2018 Unknown [id number] 1955 Unknown [id number] 1955 Unknown [id number] 1955 Unknown [id number] 1955 Unknown [id number] 1955 Unknown [id number] 1955 Unknown [id number] 1955 Unknown [id number] 1955 Unknown [id number] 1955 Unknown [id number] 1955 Unknown [id number] 1955 Unknown [id number] 1955 Unknown [id number] 1955 Unknown [id number] Unknown [id number] Unknown [id number] Social History Date Type Detail Facility Tobacco smoking status MNIS Tobacco smoking consumption unknown [facility] Work Phone: Start: 1955 Sex Assigned At Male [facility] Start: 10-17-2021 End: 04-12-2022 Exposure to SARS-CoV-2 (event) Not sure [facility] Start: 10-26-2022 End: 01-23-2023 Sex Assigned At [facility] Start: 04-07-2020 End: 11-20-2022 Tobacco smoking status NHIS Never smoked tobacco (finding) [facility] Start: 10-26-2022 End: 01-23-2023 History of Social function [facility] National Score (1-100), lower number is lower risk 62 [facility] Start: 09-03-2021 Gender identity Identifies as male gender (finding) [facility] Start: 11-20-2022 Tobacco use and exposure Smokeless tobacco non-user [facility] Start: 07-25-2023 End: 07-31-2023 Alcohol intake Current drinker of alcohol (finding) [facility] Start: 01-23-2023 Alcohol Comment Caffeine: 2 cups moo ly [facility] Start: 1955 Sex Assigned At Not on file N [facility] Medical Equipment Procedure Code Equipment Code Equipment Origin al Text Equipment Identifier Dates Arthroplasty, knee, total, minimally invasive ART SURF RT 10MM 10-12 GH FDA Start: 04-07-2020 Arthroplasty, knee, total, minimally invasive Orthopaedic cement, non-medicated [id number] FDA Start: 04-07-2020 Arthroplasty, knee, total, minimally invasive Uncoated knee femur prosthesis ()[id number] FDA Start: 04-07-2020 Arthroplasty, knee, total, minimally invasive Uncoated knee tibia prosthesis, metallic ()[id number] FDA Start: 04-07-2020 Arthroplasty, knee, total, minimally invasive Polyethylene patella prosthesis ()[id number] FDA Start: 04-07-2020 Arthroplasty, knee, total, minimally [...] FDA Start: 04-02-2018 Clinical Notes 10-27-2021 to 07-31-2023 Yudy Gupta, ADRIENNE - 07/31/2023 9:15 AM Jevon Cao MD - 05/22/2023 4:48 PM EST Note Date & Type Note Facility 07-31-2023 History of Present illness Narrative Marco Antonio Parra is a 68 y.o. male presents with chief complaint of 6 Month Follow-up HPI: Review lab drawn 07/30/2023. He continues to take Ozempic which was increased at last OV. He has seen ortho, Dr. Cardenas for right knee pain (hx TKA). He had x-rays 07/15/2023. Patient reports he may need a left knee replacement. He follows with [facility] Urology every 6 months and they are monitoring PSA. HISTORIES: PAST MEDICAL HISTORY: Past Medical History: Diagnosis Date Allergic rhinitis Anxiety Chronic idiopathic urticaria Factor V Leiden mutation (CMS/HCC) GERD (gastroesophageal reflux disease) History of DVT in adulthood Hypercholesteremia (CMS/HCC) Insomnia Post-traumatic osteoarthritis of right foot Prediabetes Primary osteoarthritis involving multiple joints Prostate cancer (CMS/HCC) SURGICAL HISTORY: Past Surgical History: Procedure Laterality Date COLONOSCOPY 2009 EGD 04/15/2017 /colonoscopy- normal (internal hemorrhoids) FRACTURE SURGERY JOINT REPLACEMENT LISFRANC ARTHRODESIS 2016 LUMBAR SPINE SURGERY 2017 posterior lumbar interbody fusion SPINE SURGERY TOE SURGERY hammertoe repair TOTAL KNEE ARTHROPLASTY Right VASECTOMY 1997 FAMILY HISTORY: Family History Problem Relation Name Age of Onset Cancer Mother Mother Stroke Father Heart disease Father Muscular dystrophy Son Cancer Brother Danny Heart disease Brother Bill Heart disease Brother Tera Hypertension Brother Tera SOCIAL HISTORY: Social History Tobacco Use Smoking status: Never Smokeless tobacco: Never Vaping Use Vaping Use: Never used Substance Use Topics Alcohol use: Yes Alcohol/week: 1.0 standard drink of alcohol Types: 1 Glasses of wine per week Comment: Caffeine: 2 cups daily Drug use: Never Depression: Not at risk (01/23/2023) PHQ-2 PHQ-2 Score: 0 MEDICATIONS: Current Outpatient Medications Medication Instructions acetaminophen (Tylenol Extra Strength) 500 MG tablet Every 6 hours ALPRAZolam (XANAX) 0.5 mg, Oral, 2 times daily PRN amoxicillin (Amoxil) 500 MG capsule TAKE 4 CAPSULES BY MOUTH 45 MINUTES TO 1 HOUR PRIOR TO DENTAL PROCEDURE aspirin 81 mg, Oral, Daily atorvastatin (LIPITOR) 80 mg, Oral, Nightly cetirizine (ZYRTEC ALLERGY) 10 mg, Oral, Daily Cholecalciferol (Vitamin D) 50 MCG (1999 UT) capsule 1 capsule, Oral, Daily diclofenac (Voltaren) 75 MG EC tablet TAKE 1 TABLET BY MOUTH WITH FOOD OR MILK TWICE DAILY docusate sodium (Colace) 100 MG capsule 1 capsule, Oral, 2 times daily metoprolol succinate XL (TOPROL XL) 25 mg, Oral, Daily Multiple Minerals-Vitamins (Citracal Plus) tablet 1 tablet, Oral, Daily omeprazole (PRILOSEC) 20 mg, Oral, Daily Ozempic (0.25 or 0.5 MG/DOSE) 0.5 mg, Subcutaneous, Weekly polyethylene glycol (PEG) 3350 (MIRALAX) 17 g, Oral, Daily PRN sildenafil (VIAGRA) 100 mg, Oral, Daily PRN triamcinolone (Kenalog) 0.1 % cream APPLY TO LOWER LEGS TWICE DAILY UNTIL CLEAR, THEN USE NEEDED FOR ITCH zolpidem (AMBIEN) 5 mg, Oral, Nightly PRN ALLERGIES: No Known Allergies REVIEW OF SYMPTOMS: Review of Systems Constitutional: Negative for fatigue. Respiratory: Negative for shortness of breath. Cardiovascular: Positive for leg swelling (intermittently). Negative for chest pain. Gastrointestinal: Negative for abdominal pain, blood in stool, constipation and diarrhea. Denies heartburn Genitourinary: Negative for difficulty urinating. Neurological: Negative for dizziness. Psychiatric/Behavioral: Positive for sleep disturbance (uses Ambien as needed). The patient is nervous/anxious (very occasional rarely uses Alprazolam). PHYSICAL EXAM: BP 124/76 (BP Location: Left arm, Patient Position: Sitting) Pulse 74 Ht 5' 8 Wt 216 lb SpO2 96% BMI 32.84 kg/m Physical Exam Constitutional: Appearance: He is obese. HENT: Mouth/Throat: Mouth: Mucous membranes are moist. Neck: Thyroid: No thyroid mass or thyromegaly. Vascular: No carotid bruit. Cardiovascular: Rate and Rhythm: Normal rate and regular rhythm. Heart sounds: No murmur heard. No friction rub. No gallop. Pulmonary: Effort: Pulmonary effort is normal. Breath sounds: Normal breath sounds. Abdominal: General: Bowel sounds are normal. Palpations: Abdomen is soft. Tenderness: There is no abdominal tenderness. Musculoskeletal: Right lower leg: No edema. Left lower leg: No edema. Lymphadenopathy: Cervical: No cervical adenopathy. Skin: General: Skin is warm and dry. Neurological: Mental Status: He is alert and oriented to person, place, and time. Psychiatric: Mood and Affect: Mood normal. Thought Content: Thought content normal. ASSESSMENT AND PLAN: 1. Essential (primary) hypertension (CMS/HCC) Doing well. Blood pressures have been good. Continue lifestyle modifications. Continue current medication. Call if any problems or if home blood pressures rising. - CBC and differential; Future - Comprehensive metabolic panel; Future - CBC and differential - Comprehensive metabolic panel 2. Pure hypercholesterolemia ([facility]) Continue Atorvastatin, eat a healthy diet, and exercise regularly. - Lipid panel; Future - Lipid panel 3. Prediabetes Continue to minimize added sugars, carbohydrates and control overall calories. Encouraged regular exercise will help to increase your sensitivity to insulin and can help with weight loss or maintenance to prevent progression to diabetes. 4. 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 Denies any anginal symptoms. Continue aggressive risk factor modification. Continue current medications. Call if any problems. 5. Gastroesophageal reflux disease without esophagitis Denies breakthrough symptoms with taking Omeprazole. 6. Generalized anxiety disorder ([facility]) Stable. He is not taking Alprazolam regularly. 7. Osteopenia of multiple sites Last DEXA 06/2018 showed osteopenia. 8. Primary insomnia Uses Ambien as needed. Continue current regimen. 9. Primary osteoarthritis involving multiple joints Uses Tylenol as needed for pain. 10. Factor V Leiden ([facility]) Stable. Continue to monitor. 11. Vitamin D deficiency He is taking supplement. Continue to monitor. - Vitamin D 25 hydroxy; Future - Vitamin D 25 hydroxy 12. History of malignant neoplasm of prostate He is following with Urology and getting PSA checked regularly. 13. Morbid obesity ([facility]) Encouraged to eat a healthy diet and exercise regularly. 14. BMI 32.0-32.9,adult As above. Dr. Block was present in the office at the time of visit today and is supervising patient care. I am following Dr. Block's established plan of care for the above issues. documented in this encounter [facility] 05-30-2023 Note [facility] Cardiology Clinic Note Chief Complaint: Patient here [...] history of Coronary artery disease, Diabetes mellitus (CMS/HCC), Factor V Leiden (CMS/HCC), Family history of premature CAD, Family history [...] Coronary atherosclerosis I25.10: Atherosclerotic heart disease of karuk coronary artery without angina pectoris 2. Abnormal findings diagnostic imaging heart+coronary circulat - Abnormal calcium score 99th percentile for age and gender and race R93.1: Abnormal findings on diagnostic imaging of heart and coronary circulation 3. 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 Dysli (more content not included)... [facility] 05-22-2023 Note HNO ID: [id number] Author: Jevon Zambrano MD Service: ? Author Type: Physician Type: Progress Notes Filed: 05/22/2023 4:58 PM Note Text: VIRTUAL VISIT PROGRESS NOTE This is a virtual visit using [employer] Zoom Video Visit. It required patient-provider interaction for the medical decision making as documented below. I have communicated my name and active licensure. The patient's identity and physical location were verified at the time of this visit. Either the patient or their legal desk representative has been informed of the risks [...] - No malignancy. 3 cores of CHIRAG. 08/25/2020:Rogers 3+3, 2/ cores 05/28/2019: Nina 3+3=6, 1/12 cores PSA today: 10/29/2022 - [...] with follow up after Jevon Zambrano MD [facility] 05-22-2023 History of Present illness Narrative VIRTUAL VISIT PROGRESS NOTE This is a virtual visit using [employer] Video Visit. It required patient-provider interaction for the medical decision making as documented below. I have communicated my name and active licensure. The patient's identity and physical location were verified at the time of this visit. Either the patient or their legal desk representative has been informed of the risks [...] of CHIRAG. 08/25/2020:Nina 3+3, 2/12 cores 05/28/2019: Nina 3+3=6, 1/12 cores PSA today: 10/29/2022 - [...] Jevon Zambrano MD documented in this encounter [facility] 03-05-2023 Evaluation note Encounter Date Diagnosis Assessment [...] History of lumbar fusion (ICD-10 - Z98.1) [facility] Other 05-05-2023 NoteHNO ID: [id number] Author: Giana Pastrana MD Service: ? Author Type: Physician Type: Progress Notes Filed: 10/26/2022 10:57 AM Note Text: REASON FOR VISIT: Follow up for Adenocarcinoma of Prostate I have communicated my name and active licensure. The patient's identity and physical location were verified at the time of this visit. Either the patient or their legal desk representative has been informed of the risks and benefits of -- and alternatives to -- treatment through a remote evaluation and consents to proceed with the evaluation remotely. HPI: 67 year old male with prostate cancer on . Prostate Biopsies: 04/12/22 - No malignancy. 3 cores of CHIRAG. 08/25/2020:Nina 3+3, 2/12 cores 05/28/2019: Rogers 3+3=6, 1/12 cores PSA today: 10/03/2022 - [...] 1 tablet by mouth once daily. multivit-mins/iron/folic/lycop (MV,CA,KZQ-OBLK-VJ-LYCOPENE ORAL) Take 1 tablet by mouth once [...] Pastrana MD, MSN October 25, 2022 5:28 [facility]05-05-2023 History of Present illness Narrative* Giana Pastrana MD - 10/26/2022 10:30 AM EDT REASON FOR VISIT: Follow up for Adenocarcinoma of Prostate I have communicated my name and active licensure. The patient's identity and physical location wereverified at the time of this visit. Either the patient or their legal desk representative has been informed of the risks and benefits of -- and alternatives to -- treatment through a remote evaluation andconsents to proceed with the evaluation remotely. HPI: 67 year old male with prostate cancer on . Prostate Biopsies: 04/12/22 - No malignancy. 3 cores of CHIRAG. 08/25/2020:Nina 3+3, 2/12 cores 05/28/2019: Nina 3+3=6, [...] 1 tablet by mouth once daily. multivit-mins/iron/folic/lycop (MV,CA,CIT-XNZB-GU-LYCOPENE ORAL) Take 1 tablet by mouth once [...] in 6 months. Follow up with Dr. Garcia afterward. Medical Decision Making: Problems: Low: Stable chronic illness Data: Unique test(s) ordered: 1 Risk: Moderate: Moderate risk from testing/treatment Medical Decision Making Level: 3 - Low Electronically Signed: Giana Pastrana MD, MSN October 25, 2022 5:28 PM documented in this encounterUniversity [facility] Miscellaneous Notes* Telephone Encounter - Giana Pastrana MD - 04/20/2022 2:37 PM EDT I spoke with And Mrs. Parra. Biopsy results are favorable. No malignancy noted. 3 cores of CHIRAG. We will continue with and recheck PSA in 6 months. 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 MRI [...] reconstruction of the prostate gland using the [employer] system. Trans-rectal ultrasound with a guide was [...] MD May 14, 2022, documented in this encounterUniversity Hospitals [facility]09-15-2022 Evaluation note* Encounter Date Diagnosis Assessment Notes [...] History of lumbar fusion (ICD-10 - Z98.1) [facility] Other 08-31-2022 Miscellaneous Notes* Telephone Encounter - Giana Pastrana MD - 02/21/2022 6:59 PM EDT Spoke with pt and his over the phone. We cannot accomodate 04/26 for TP biopsy. Offered 03/08, which does not work for the patient. We will move the date to 04/12/22. Giana Pastrana MD Department of Urology Advanced Robotics and Laparoscopy Fellow documented in this encounterUniversity Hospitals [facility]08-25-2022 Evaluation note* Encounter Date Diagnosis Assessment Notes [...] follow-up with me on an as-needed basis. [facility] Other 06-02-2022 History of Present illness Narrative* Hugo Garcia MD - 11/23/2021 11:45 AM EDT VIRTUAL VISIT PROGRESS NOTE This is a virtual visit using [employer] video visit. It required patient-provider interaction for the medical decision making as documented below. REASON FOR VISIT: Follow up for Adenocarcinoma of Prostate HPI: 66 year old male with prostate cancer on active surveillance for Rogers 3+3 disease. His lastMRI October 2021 showed [...] 1 tablet by mouth once daily. multivit-mins/iron/folic/lycop (MV,CA,QNW-PJJW-IO-LYCOPENE ORAL) Take 1 tablet by mouth once [...] with prostate cancer on active surveillance for Rogers 3+3 disease. His last MRI October 2021 showed a PIRADS 3 lesion. Last PSA in August 2021 was 0.8. 1) Prostate cancer, Rogers 3+3 disease 2) MRI 0.8 CM LEFT [...] MD I spent more than 30 minutes [id number] with the patient and over half the time was devoted to counseling and/or coordination of care. documented in this encounterUniversity Hospitals [facility]05-12-2022 NotePROCEDURE: XR ANKLE LT MIN [...] Electronically authenticated by: KEN REGAN Date: 2021-11-02 11:06[facility]05-12-20[facility] NotePROCEDURE: XR ANKLE LT MIN 3 V, [...] Electronically authenticated by: KEN REGAN Date: 2021-11-02 11:06[facility]05-12-2022 NotePROCEDURE: XR FOOT RT MIN 3 VIEWS [...] Electronically authenticated by: KEN REGAN Date: 2021-11-02 10:41[facility]05-06-2022 History of Present illness Narrative* Annette Gar [...] 2021 TIME: 8:58 AM [facility]* Diagnosis Malignant neoplasm of prostate (HCC) Malignant neoplasm of prostate [facility]* Diagnosis Prostate cancer (HCC) Malignant neoplasm of prostate documented in this encounter [facility] noteNo assessment information availableBerger [facility] Work Phone: Evaluation note* Diagnosis Prostate cancer (HCC)- Primary Malignant neoplasm of prostate [facility]* Diagnosis Prostate cancer (HCC)- Primary Malignant neoplasm of prostate [facility]* Diagnosis Elevated PSA- Primary Elevated prostate specific antigen (PSA) [facility]* Diagnosis Prostate cancer (HCC)- Primary Malignant neoplasm of prostate [facility]* Diagnosis Prostate cancer (HCC)- Primary Malignant neoplasm of prostate [facility]* Diagnosis Essential (primary) hypertension (CMS/HCC)- Primary Unspecified essential hypertension Pure hypercholesterolemia (CMS/HCC) Pure hypercholesterolemia Prediabetes Other abnormal glucose 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 (CMS/HCC) Gastroesophageal reflux disease without esophagitis Esophageal reflux Generalized anxiety disorder (CMS/HCC) Generalized anxiety disorder Osteopenia of multiple sites Primary insomnia Persistent disorder of initiating or maintaining sleep Primary osteoarthritis involving multiple joints Factor V Leiden (CMS/HCC) Primary hypercoagulable state Vitamin D deficiency History of malignant neoplasm of prostate Morbid obesity (CMS/HCC) Morbid obesity BMI 32.0-32.9,adult [facility] N[facility] - Reported* Type Description Date Medical History Blood clots Medical History factor V Surgical History hammertoe repair Surgical History vasectomy Surgical History hammer toe Surgical History vasectomy 1997 Surgical History colonoscopy 2009 Surgical History fusion, lisfranc fracture aleks Quarles 05/2016 Surgical History EGD/Colonoscopy (normal- corporate legal intern al hemorrhoids) 04/15/17 Surgical History PLIF (posterior lumbar interbod y fusion) 04/02/18 Surgical History Right Knee Replacement 2019 Hospitalization History see above [facility] Other Summary Purpose Family History Relationship Condition [...] Referral Specialty Diagnoses / Procedures Referred By Contac t Referred To Contact MR IMAGING Diagnoses Malignant neoplasm of prostate (HCC) Procedures MRI PROSTATE WO/W IVCON MRI PELVIS W/WO CONTRAST Navin Redman MD [facility] [place] [id number] Mr Imaging Referral ID Status Reason Start Date Expiration Date V isits Requested Visits Authorized [id number] Closed Auto-Generate d Referral 10/02/2021 11/06/2021 1 1 Specialty Diagnoses / Procedures Referred By Contac t Referred To Contact MR IMAGING Diagnoses Prostate cancer (HCC) Procedures MRI 3D POST PROCESSING 3D RENDERING W/INTERP&POSTPROC DIFF WORK STATION Jevon Zambrano MD [facility] [place] [address] [facility] [place] [id number] Referral ID Status Reason Start Date Expiration Date Visits Requested Visits Authorized [id number] Pending Review Auto-Generat ed Referral 3 06/20/2024 1 1 Specialty Diagnoses / Procedures Referred By Contac t Referred To Contact MR IMAGING Diagnoses Prostate cancer (HCC) Procedures MRI PROSTATE WO/W IVCON MRI PELVIS W/O & W/[place] [address] [place] [id number] [facility] [place] [id number] Referral ID Status Reason Start Date Expiration Date Visits Requested Visits Authorized [id number] Pending Review Auto-Generat ed Referral 11/20/2023 06/20/2024 [...] section and content) DATE CREATED AUTHOR 12/18/2017 [facility] DATE CREATED AUTHOR AUTHOR'S ORGANIZ ATION 12/18/2017 [facility] DATE CREATED AUTHOR AUTHOR'S ORGANIZ ATION 06/14/2018 [facility] DATE CREATED AUTHOR AUTHOR'S ORGANIZ ATION 10/26/2020 [facility] DATE CREATED AUTHOR AUTHOR'S ORGANIZ ATION 10/13/2021 [facility] DATE CREATED AUTHOR AUTHOR'S ORGANIZ ATION 10/08/2022 [facility] DATE CREATED AUTHOR AUTHOR'S ORGANIZ ATION 03/12/2023 [facility] DATE CREATED AUTHOR AUTHOR'S ORGANIZ ATION 05/25/2023 [facility] DATE CREATED AUTHOR AUTHOR'S ORGANIZ ATION 06/01/2023 [facility] DATE CREATED AUTHOR AUTHOR'S ORGANIZ ATION 08/01/2023 [facility] EPIC Source Comments (unrecognize d section and content) In the event this informatio n is protected by the Federal Confidentiality of Alcohol and Drug Abuse Patient Records regulations: The Federal rules restrict any use of the information to criminally investigate or prosecute any alcohol or drug abuse patient.[facility] CenterIn the event this information is protected by the Federal Confidentiality of Alcohol and Drug Abuse Patient Records regulations: The Federal rules restrict any use of the information to criminally investigate or prosecute any alcohol or drug abuse patient.[facility] CenterIn the event this information is protected by the Federal Confidentiality of Alcohol and Drug Abuse Patient Records regulations: The Federal rules restrict any use of the information to criminally investigate or prosecute any alcohol or drug abuse patient.[facility] CenterIn the event this information is protected by the Federal Confidentiality of Alcohol and Drug Abuse Patient Records regulations: The Federal rules restrict any use of the information to criminally investigate or prosecute any alcohol or drug abuse patient.[facility] CenterIn the event this information is protected by the Federal Confidentiality of Alcohol and Drug Abuse Patient Records regulations: The Federal rules restrict any use of the information to criminally investigate or prosecute any alcohol or drug abuse patient.[facility] Center[facility] the event this information is protected by the Federal Confidentiality of Alcohol and Drug Abuse Patient Records regulations: The Federal rules restrict any use of the information to criminally investigate or prosecute any alcohol or drug abuse patient.[facility] Center[facility] the event this information is protected by the Federal Confidentiality of Alcohol and Drug Abuse Patient Records regulations: The Federal rules restrict any use of the information to criminally investigate or prosecute any alcohol or drug abuse patient.[facility] CenterIn the event this information is protected by the Federal Confidentiality of Alcohol and Drug Abuse Patient Records regulations: The Federal rules restrict any use of the information to criminally investigate or prosecute any alcohol or drug abuse patient.[facility] Reason for Visit (unrecogniz ed section and content) Reason Comments Radiology MRI Specialty Diagnoses / Procedures Referred By Contac t Referred To Contact MR IMAGING Diagnoses Malignant neoplasm of prostate (HCC) Procedures MRI PROSTATE WO/W IVCON MRI PELVIS W/WO CONTRAST Navin Redman MD [address] [place] [id number] Mr Imaging Referral ID Status Reason Start Date Expiration Date V isits Requested Visits Authorized [id number] Closed Auto-Generate d Referral 10/02/2021 11/06/2021 1 1 Reason Comments Follow Up Reason Comments Appointment Reason Comments Results Reason Comments Prostate Biopsy Transperineal biopsy with nitrous Reason Comments Follow Up Reason Comments 6 Month Follow-up Care Teams (unrecognized sec tion and content) Talent Acquisition Partner Relationship Specialty Start Date End Date Annette Block MD [address] [place] [address] PCP - General Internal Medicine 02/21/18 Talent Acquisition Partner Relationship Specialty Start Date End Date Annette Block MD [address] [place] [address] PCP - General Internal Medicine 02/21/18 Talent Acquisition Partner Relationship Specialty Start Date End Date Annette Block MD [address] [place] [address] PCP - General Internal Medicine 02/21/18 Team Status: Inactive Member Role Status Yair Block MD Primary Care Provider Active Annette Callaway II, MD Attending Provider Active Team Status: Active Member Role Status Yair Block MD Primary Care Provider Active Team Status: Inactive Member Role Status Yair Block MD Primary Care Provider Active Preston Tejada MD Attending Provider Active Talent Acquisition Partner Relationship Specialty Start Date End Date Annette Block MD [address] [place] [address] PCP - General Internal Medicine 02/21/18 Talent Acquisition Partner Relationship Specialty Start Date End Date Annette Block MD [address] [place] [address] PCP - General Internal Medicine 02/21/18 Talent Acquisition Partner Relationship Specialty Start Date End Date Annette Block MD [address] [place] [address] PCP - General Internal Medicine 02/21/18 Talent Acquisition Partner Relationship Specialty Start Date End Date Annette Block MD [address] [place] [address] PCP - General Internal Medicine 02/21/18 Talent Acquisition Partner Relationship Specialty Start Date End Date Annette Block MD [address] [place] [address] PCP - General Internal Medicine 11/16/22 Giana Drake MD [address] [place] [address] Urology 01/15/23 Talent Acquisition Partner Relationship Specialty Start Date End Date Annette Block MD [address] [place] [address] PCP - General Internal Medicine 11/16/22 Giana Drake MD [address] [place] [address] Urology 01/15/23 Goals (unrecognized section and content) [...] BE BASED ON THE PRIMARY CLINICAL RECORDS. [facility] [employer] [facility]. provides no warranty or guarantee of the accuracy or completeness of information in this document.
[2023-11-15 10:15] LABS: Prostate Specific Antigen Dx 1.22 ng/mL (<=4.00)
== END 2023-11-15 07:25 | disposition home or self-care (01) ==
LOC: LAB 07:24
PROVIDERS: PCP Internal Medicine
DX: C61 Malignant neoplasm of prostate (principal)
CPT/HCPCS: 36415; 84153

== ENCOUNTER 2024-02-11 07:27 | Outpatient (OUT) | payer MEDICARE, OTHER, SELFPAY ==
--- OUTSIDE RECORDS SUMMARY | 2024-02-11 07:30 | XMS_ITS | CCD ---
Author Organization [facility] Care Team Providers Care Stoker Erector Name Role Phone ANNETTE BLOCK Unavailable Unavailable ANNETTE BLOCK Unavailable Unavailable Horn, Erin Unavailable Unavailable Horn, Erin Unavailable Unavailable GEORGE DOS SANTOS Unavailable Unavailable ANNETTE BLOCK Primary Care Unavailable ANNETTE BLOCK Referring Unavailable BERRY FISHER Admitting Unavailable BERRY FISHER Attending Unavailable Annette Block MD Primary Care Provider Annette Callaway II Unavailable Annette Block MD Primary Care Provider MD Annette Block Primary Care Provider [phone] MD Annette Callaway II Attending Provider MD Preston Tejada Attending Provider Preston Tejada Unavailable Annette Block MD Primary Care Provider [phone] DR ANNETTE BLOCK Admitting Unavailable PABLO, DR BRYANT Attending Unavailable PABLO, DR BRYANT Primary Care Unavailable PABLO, DR BRYANT Consulting Unavailable PABLO, DR BRYANT Admitting Unavailable HILL, DR BRYANT Attending Unavailable HILL, DR BRYANT Primary Care Unavailable PABLO, DR BRYANT Consulting Unavailable MISC, DR BURRELL Admitting Unavailable MISC, DR BURRELL Attending Unavailable PABLO, DR BRYANT Primary Care Unavailable PABLO, DR BRYANT Consulting Unavailable MISC, DR BURRELL Admitting Unavailable MISC, DR BURRELL Attending Unavailable PABLO, DR BRYANT Primary Care Unavailable MISC, DR BURRELL Consulting Unavailable ELTAHAWEsme, DR VANESSA Consulting Unavailable JACE, RON Admitting Unavailable JACE, RON Attending Unavailable PABLO, DR BRYANT Primary Care Unavailable [facility], DR KEN Dunlap Consulting Unavailable JACE, RON Consulting Unavailable RON MCCORMICK Admitting Unavailable JACE, RON Attending Unavailable PABLO, DR BRYANT Primary Care Unavailable SAL, DR CHAPIS Campbell Consulting Unavailable RON MCCORMICK Consulting Unavailable PABLO, DR BRYANT Admitting Unavailable PABLO, DR BRYANT Attending Unavailable PABLO, DR BRYANT Primary Care Unavailable PABLO, DR BRYANT Consulting Unavailable PABLO, DR BRYANT Admitting Unavailable HILL, DR BRYANT Attending Unavailable PABLO, DR RBYANT Primary Care Unavailable PABLO, DR BRYANT Consulting Unavailable REQUEST, DR CASTILLO LISTED Admitting Unavaila ble REQUEST, DR CASTILLO LISTED Attending Unavaila ble PABLO, DR BRYANT Primary Care Unavailable REQUEST, DR CASTILLO LISTED Consulting Unavaila Preston Trimble Attending Preston Howard Admitting Unavailable Annette Block Primary Care Unavailable BERRY FISHER Attending Annette Hutchins MD Primary Care Provider JR. MARISSA, YEIMI Otero Attending Unavaila briana CARDENAS JR., YEIMI Otero Referring Unavaila ANNETTE Munoz Attending ANNETTE Hutchins Referring Annette Hutchins MD Primary Care Provider [phone] ANNETTE BLOCK Primary Care Unavailable JEVON ZAMBRANO Referring Unavailab ANNETTE Aguayo Primary Care Unavailable JEVON ZAMBRANO Referring Unavailab JEVON Che Attending Unavailab JEVON Che Attending Unavailab le ANNETTE BLOCK Primary Care Unavailable Medications Current Medications Medication Drug Class(es) Dates Sig (Normalized) Sig (Original) acetaminophen 500 mg oral tablet (4 sources) Start: 03-26-2018 take 2 tablets by mouth twice daily Acetaminophen (Acetaminophen Extra Strength) 500 mg Tablet Active 1000 MG PO Twice daily March 26, 2018 12:00am acetaminophen (T ylenol Extra Strength) 500 MG tablet every 6 (six) hours. 0 Active ALPRAZolam 0.25 mg oral tablet (18 sources) Benzodiazepine Start: 07-23-2019 take 1 tablet [...] 1 tablet by radha th once daily. amoxicillin 500 mg oral capsule (2 sources) Penicillin-class Antibacterial Start: 3 amoxicillin (Amoxil) 500 MG capsule Indications: Prophylactic antibiotic TAKE 4 CAPSULES BY MOUTH 45 MINUTES TO 1 HOUR PRIOR TO DENTAL PROCEDURE 4 capsule 3 11/22/2022 Active ascorbic acid 250 mg chewable tablet (5 sources) Vitamin C Start: 0 take 1 tablet by mouth once daily [...] Activ e atorvastatin 80 mg oral tablet (7 sources) HMG-CoA Reductase Inhibitor take 1 tablet by mouth once daily at bedtime atorvastatin (LIPITOR) 80 mg tablet Take 80 mg by mouth daily at bedtime. 0 Active calcium carbonate 1500 mg oral tablet (17 sources) Start: 8 take 1 tablet by mouth once daily calcium carbonate (CALTRATE) 600 mg calcium (1,500 mg) tab Take 1 tablet by mouth once daily. 0 03/26/2018 Active Caltrate 600 Act prisca Comment on above: Take 1 tablet by radha once daily. cetirizine hydrochloride 10 mg oral tablet (19 sources) Histamine-1 Receptor Antagonist Start: 7 take 1 tablet by mouth once daily cetirizine (ZYRTEC) 10 mg tablet Take 10 mg by mouth once daily. 0 04/15/2017 Active Zyrtec 1 tab Ora l Active Comment on above: Take 10 mg by mouth once daily. cholecalciferol 0.05 mg oral tablet (4 sources) Vitamin D Start: 03-24-20 20 take 1 tablet by mouth once daily Cholecalciferol (Vitamin D3) (Vitamin D3) 50 mcg (2,000 unit) Tablet Active 2000 UNIT PO Daily March 24, 2020 12:00am take 1 capsule by mo [facility] once in the morning Cholecalciferol (Vitamin D) 50 MCG (1999) capsule Take 1 capsule by mouth in the morning. 0 Active chondroitin sulfates 200 mg / glucosamine hydrochloride 250 mg oral tablet (2 sources) Start: 03-24-2020 take 1 tablet by mouth once daily Glucosamine-Chondroitin (Osteo Bi-Flex) 250-200 mg Tablet Active 1 TAB PO Daily March 24, 2020 12:00am diclofenac sodium 75 mg delayed release oral tablet (19 sources) Nonsteroidal Anti-inflammator y Drug Start: 04-16-2019 End: 04-09-2020 take 1 tablet by mouth every twelve hours as needed diclofenac, EC, (VOLTAREN) 75 mg EC tablet Take 1 tablet by mouth twice daily as needed. 3 04/16/2019 Active Diclofenac Activ e Comment on above: Take 1 tablet by radha th twice daily as needed. docusate sodium 100 mg oral capsule (14 sources) take 1 capsule by mouth twice daily docusate sodium (COLACE) 100 mg capsule Take 100 mg by mouth twice daily. 0 Active Comment on above: Take 100 mg by mouth twice daily. folic acid 1 mg / polysaccharide iron complex 150 mg / vitamin b12 0.025 mg oral capsule (2 sources) Vitamin B12 Start: take 1 capsule by mouth once daily in the morning Iron Ps [id number] Acid (Poly-Iron 150 Forte) 150-25-1 mg-mcg-mg capsule [...] oral tablet (2 sources) Muscle Relaxant Start: 023 End: 024 take 1 tablet by mouth three times daily as needed for muscle spasms methocarbamol (Robaxin) 750 MG tablet Indications: Spasm of muscle of lower back Take 1 tablet (750 mg) by mouth 3 (three) times a day as needed for muscle spasms. 60 tablet 1 03/12/2023 07/31/2023 Discontinued 24 hr metoprolol succinate 25 mg extended release oral capsule (7 sources) beta-Adrenergic Gunner Start: metoprolol succinate 25 mg CSpX take 1 tablet by radha th every twenty-four hours in the morning metoprolol succinate XL (Toprol XL) 25 M G 24 hr tablet Take 25 mg by mouth in the morning. 0 Active take 1 tablet by mouth every twe lve hours Metoprolol Tartrate 25 MG 1 tablet with food Orally Twice a day Active Multiple Minerals-Vitamins (Citracal Plus) tablet (2 sources) take 1 tablet by mouth in the morning Multiple Minerals-Vitamins (Citracal Plus) tablet Take 1 tablet by mouth in the morning. 0 Active Multivitamin preparation (3 sources) Multivitamin Act prisca Mv,Ca,Qpn-Hyyr-Zu-Lycope ne (Centrum Men) 8 mg iron- 200 mcg-600 mcg Tablet (2 sources) Start: 018 Mv,Ca,Hkw-Owns-Mc-Lycope ne (Centrum Men) 8 mg iron- 200 mcg-600 mcg Tablet Active 1 TAB PO Daily March 26, 2018 12:00am Nut.Tx.Gluc.Intol,Lac-Fr ee,Soy (Glucerna) Liquid (2 sources) Start: 020 Nut.Tx.Gluc.Intol,Lac-Fr ee,Soy (Glucerna) Liquid Active 1 EACH PO Daily March 24, 2020 12:00am omeprazole 20 mg delayed release oral capsule (19 sources) Proton Pump Inhibitor Start: 019 take 1 capsule by mouth once daily omeprazole (PRILOSEC) 20 mg capsule Take 20 mg by mouth once daily. 3 04/01/2019 Active take 2 capsules by m outh every twenty-four hours Omeprazole 20 MG 2 capsules Orally Once a day Active Comment on above: Take 20 mg by mouth once daily. OZEMPIC 0.25 mg or 0.5 mg (2 mg/3 mL) pen (2 sources) OZEMPIC 0.25 mg or 0.5 mg (2 mg/3 mL) pen Inject 0.25 mg subcutaneously one time a week. 0 Active polyethylene glycol 3350 21849 mg powder for oral solution (17 sources) Osmotic Laxative polyethylene gl ycol 3350 (MIRALAX, GLYCOLAX) 17 gram/dose powder Take by mouth once daily. 0 Active MiraLax Active Comment on above: [...] 8.6 mg oral tablet (2 sources) Start: take 1 tablet by mouth twice daily Sennosides (Senna) 8.6 mg Tablet Active 8.6 MG PO Twice daily January 10, 2018 12:00am sildenafil 100 mg oral tablet (19 sources) Phosphodiesterase 5 Inhibitor Start: 019 take 1 tablet by mouth once daily sildenafil (VIAGRA) 100 mg tablet Take 100 mg by mouth once daily. 2 01/21/2019 Active Comment on above: Take 100 mg by mouth once daily. traMADol hydrochloride 50 mg oral tablet (4 sources) Opioid Agonist Start: 024 End: take 1 tablet by mouth every [...] Vitamin D (3 sources) Vitamin D Active zolpidem tartrate 5 mg oral tablet (16 sources) gamma-Aminobutyric Acid-ergic Agonist Start: 07-23-2019 zolpidem (AMBIEN) 5 mg tablet Take 1 tablet by mouth as needed. 0 07/23/2019 Active Start: 03-26-2018 take 1 tablet by radha th once daily at bedtime Zolpidem (Ambien) 10 mg Tablet Active 10 MG PO Daily at bedtime March 26, 2018 12:00am Comment on above: Take 1 tablet by radha th as needed. Completed/Discontinued Medications Medication Drug Class(es) Dates Sig (Normalized) Sig (Original) cephalexin 500 mg oral capsule (3 sources) Cephalosporin Antibacterial Start: 04-12-2022 End: 04-12-2022 cephALEXin 500 mg cap(s) (KEFLEX) Start: 04-03-2018 End: 04-14-2018 take 1 capsule by mouth every eight hours Cephalexin (Keflex) 500 mg capsule Discontinued 500 MG PO Q8H April 03, 2018 12:00am April 14, 2018 11:05am cyclobenzaprine hydrochloride 10 mg oral tablet (2 sources) Muscle Relaxant Start: 04-03-2018 End: 03-24-2020 take 10 mg by mouth three times daily Cyclobenzaprine Discontinued 10 MG PO Three times daily April 03, 2018 12:00am March 24, 2020 11:39am diclofenac sodium 75 mg / miSOPROStol 0.2 mg delayed release oral tablet (2 sources) Nonsteroidal Anti-inflammatory Drug, Prostaglandin E1 Analog Start: 04-15-2017 End: 04-03-2018 take 1 tablet by mouth twice daily Diclofenac-Misopros varinder Discontinued 1 TAB PO Twice daily April 15, 2017 12:00am April 03, 2018 4:41pm gabapentin 300 mg oral capsule (2 sources) Anti-epileptic Agent Start: 03-26-2018 End: 03-24-2020 take 3 capsules by mouth three times daily Gabapentin (Neurontin) 300 mg Capsule Discontinued 900 MG PO Three times daily March 26, 2018 12:00am March 24, 2020 11:39am glucosamine/chondr wise A sod (OSTEO BI-FLEX ORAL) (7 sources) End: 10-26-2022 glucosamine/chondr wise A sod (OSTEO BI-FLEX ORAL) [...] do not crush/dissolve/chew/cut/break multivit-mins /iron/folic/l ycop (MV,CA,MIN-IR UT-YH-RNRHKSN E ORAL) (7 sources) Start: 03-26-2018 End: 10-26-2022 take 1 tablet by mouth once daily multivit-mins/iron/folic/lycop (MV,CA,PUE-SCKL-DV-LYCOPENE ORAL) Take 1 tablet by mouth once daily. 0 03/26/2018 10/26/2022 Discontinued Start: 03-26-2018 take 1 tablet by radha th once daily multivit-mins/iron/folic/lycop (MV,CA,DHL-PWXS-KP-LYCOPENE ORAL) Take 1 tablet by mouth once [...] FX SODIUM HYALURONATE (9 sources) Start: 01-11-20 SUPARTZ FX SODIUM HYALURONATE Dec, 25 mg Start: 01-03-2017 SUPARTZ FX SOD IUM HYALURONATE Dec, 25 Start: 12-27-2016 SUPARTZ FX SOD IUM HYALURONATE Dec, 25 Problems Active Problems Problem Classification Problem Date Documented Da te Episodic/Chronic Acute posthemorrhagic anemia (2 sources) Anemia following acute postoperative blood loss; Translations: [Acute posthemorrhagic anemia] 04-08-2020 Episodic Anxiety disorders (6 sources) Generalized anxiety disorder; Translations: [Generalized anxiety disorder] Onset: 3 11-19-2022 Chronic Cancer of prostate (20 sources) Malignant tumor of prostate; Translations: [Malignant neoplasm of prostate] Onset: 2 Resolved: 3 Chronic Cancer of prostate (3 sources) History of malignant neoplasm of prostate; Translations: [Personal history of malignant neoplasm of prostate] Onset: 1 01-18-2023 Episodic Coagulation and hemorrhagic disorders (15 sources) Factor V Leiden mutation; Translations: [Activated protein C resistance] Onset: 2 08-20-2019 Chronic Coronary atherosclerosis and other heart disease (5 sources) Atherosclerotic heart disease of picayune coronary artery without angina pectoris; Translations: [Coronary arteriosclerosis] Onset: 3 Chronic Diabetes mellitus without complication (11 sources) Prediabetes; Translations: [Other abnormal glucose] Onset: 2 Episodic Disorders of lipid metabolism (20 sources) Hyperlipidemia; Translations: [Hyperlipidemia, unspecified] Onset: 2 08-20-2019 Chronic Esophageal disorders (8 sources) Gastroesophageal reflux disease; Translations: [Gastro-esophageal reflux disease without esophagitis] Onset: 3 04-15-2017 Chronic Essential hypertension (3 sources) Essential hypertension; Translations: [Essential (primary) hypertension] Onset: 3 01-18-2023 Chronic Fracture of lower limb (4 sources) Closed fracture of metatarsal bone; Translations: [Fracture of unspecified metatarsal bone(s), unspecified foot, initial encounter for closed fracture] Onset: 2 Episodic Miscellaneous mental health disorders (3 sources) Primary insomnia; Translations: [Primary insomnia] Onset: 3 01-18-2023 Chronic Nutritional deficiencies (6 sources) Vitamin D deficiency; Translations: [Vitamin D deficiency, unspecified] Onset: 3 11-19-2022 Chronic Osteoarthritis (20 sources) Osteoarthritis of knee; Translations: [Unilateral primary osteoarthritis, right knee] Onset: 2 Chronic Other acquired deformities (2 sources) Acquired spondylolisthesis; Translations: [Spondylolisthesis, lumbosacral region] 04-03-2018 Episodic Other acquired deformities (2 sources) Spondylolisthesis, lumbar region Onset: 2 Resolved: 2 Episodic Other bone disease and musculoskeletal deformities (6 sources) Osteopenia; Translations: [Other specified disorders of bone density and structure, unspecified site] Onset: 3 07-24-2023 Episodic Other connective tissue disease (2 sources) History of total knee arthroplasty; Translations: [Presence of right artificial knee joint] 04-08-2020 Chronic Other connective tissue disease (2 sources) Arthrodesis status Onset: 2 Resolved: 2 Episodic Other fractures (1 source) Stress fracture, unspecified site, subsequent encounter for fracture with routine healing; Translations: [M84.30XD - Stress fracture, unspecified site, subsequent encounter for fracture with routine healing] Onset: 8 Episodic Other nutritional; endocrine; and metabolic disorders (12 sources) Obese class II; Translations: [Obesity, unspecified] Onset: 9 05-22-2019 Chronic Other nutritional; endocrine; and metabolic disorders (6 sources) Morbid obesity; Translations: [Morbid (severe) obesity due to excess calories] Onset: 3 11-19-2022 Chronic Other nutritional; endocrine; and metabolic disorders (1 source) Body mass index 30+ - obesity; Translations: [Body mass index (BMI) 32.0-32.9, adult] 07-31-2023 Chronic Other screening for suspected conditions (not mental disorders or infectious disease) (10 sources) Patient encounter status; Translations: [Encounter for screening for malignant neoplasm of colon] Onset: 3 04-15-2017 Episodic Other upper respiratory disease (5 sources) Allergic rhinitis; Translations: [Allergic rhinitis, unspecified] Onset: 3 11-19-2022 Chronic Phlebitis; thrombophlebitis and thromboembolism (20 sources) H/O: Deep vein thrombosis; Translations: [Personal history of other venous thrombosis and embolism] Onset: 2 08-20-2019 Episodic Residual codes; unclassified (3 sources) Insomnia; Translations: [Insomnia, unspecified] Episodic Spondylosis; intervertebral disc disorders; other back problems (2 sources) Spinal stenosis of lumbar region; Translations: [Spinal stenosis, lumbar region without neurogenic claudication] 04-03-2018 Episodic Unclassified (2 sources) Shortness of breath / R06.02(ICD-9) Onset: 7 Unclassified (1 source) Abnormal findings on diagnostic imaging of limbs / R93.6(ICD-9) Onset: 7 Unclassified (1 source) Family hx of ischem heart dis and oth dis of the circ sys / Z82.49(ICD-9) Onset: 7 Unclassified (1 source) Personal history of other venous thrombosis and embolism / Z86.718(ICD-9) Onset: 7 Unclassified (1 source) Pure hypercholesterolemia, unspecified / E78.00(ICD-9) Onset: 7 Unclassified (2 sources) CONTACT W/AND (SUSP) EXPOS COVID-19; Translations: [CONTACT W/AND (SUSP) EXPOS COVID-19] Onset: 2 Unclassified (1 source) Spondylolisthesis, lumbar region; Translations: [Spondylolisthesis, lumbar region] Onset: 3 Viral infection (1 source) COVID-19; Translations: [COVID-19] Onset: 2 Past or Other Problems Problem Classification Problem Date Documented Da te Episodic/Chronic Allergic reactions (5 sources) Chronic idiopathic urticaria; Translations: [Idiopathic urticaria] Onset: 11-19-2022 Resolved: 01-18-2023 01-18-2023 Episodic Other acquired deformities (8 sources) Lumbar spondylolisthesis; Translations: [Spondylolisthesis , lumbar region] Onset: 11-19-2022 11-19-2022 Episodic Other aftercare (4 sources) Other custodial (current) drug therapy; Translations: [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 THERAPY] Onset: 05-23-2022 Episodic Other [...] left knee Onset: 02-15-2022 Resolved: 02-15-2022 Episodic Retinal detachments; defects; vascular occlusion; and retinopathy (2 sources) Retinal disorder; 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] Onset: 11-19-2022 Resolved: 01-18-2023 01-18-2023 Chronic Unclassified (1 source) CONTACT W/AND (SUSP) EXPOS COVID-19; Translations: [CONTACT W/AND (SUSP) EXPOS COVID-19] Onset: 02-08-2022 Results Test Name Value Interpretation Reference Range Facility [facility] 11-22-2023 CNOV Office Visit (UROLMN ) MARCO ANTONIO BENITEZ ([id number]) 1955 M Date Time Provider Department 11/22/23 1:45 PM JEVON ZAMBRANO During your visit today, we recorded the following information about you: Weight Height 97.8 kg 1.727 m Jevon Zambrano MD 11/22/2023 4:10 PM Signed REASON FOR VISIT: Follow up for Adenocarcinoma of Prostate HPI: 67 year old male presents for follow up for prostate cancer on active surveillance Last visit: 05/22/23 Generally doing well. Denies nausea, loss of appetite, unintentional weight loss, fever, fatigue. No bone pain. PSA on 11/15/23 was 1.22, stable with recent PSA results. Prostate MRI demonstrated a 1cm PIRADS 3 lesion, similar to MRI in 2021. No new lesions concerning for clinically significant prostate cancer. Prostate Biopsies: 04/12/22 - No malignancy. 3 cores of CHIRAG. 08/25/2020:[place] 3+3, 2/12 cores 05/28/2019: [place] 3+3=6, 1/12 cores PSA today: 11/15/23 - 1.22 10/29/2022 - 1.19 10/03/2022 - 1.15 03/2022 - 1.19 08/2021: 0.8 02/23/2021: 1.17 08/18/2020: 1.03 02/20/2020: 1.97 No results found for: PSA MRI 10/2021 - left mid anterior TZ PIRADS3 lesion. 29cc gland MRI 02/2020 - negative Some aspects were copied from previous note. All aspects have been reviewed and reflect my clinical decision making from today. IMAGING MRI Prostate 11/22/23 IMPRESSION: 1.0 cm left anterior transition PI-RADS 3 lesion, similar to 10/27/2021. No new lesion suspicious for clinically significant prostate cancer. No lymphadenopathy or suspicious osseous lesions. PATHOLOGY: FINAL DIAGNOSIS A. Prostate, left mid [...] lesion noted RESPIRATORY: breathing non-labored and no grunting/flaring/retra ctions NEUROLOGIC: no obvious deficit : prostate smooth bilaterally, no nodules, ~30g PROBLEMS: 1. Prostate cancer (HCC) - ICD9: 185, ICD10: C61 (primary diagnosis) 2. Elevated PSA - ICD9: 790.93, ICD10: R97.20 IMPRESSION: This is a 67 year old male with history of GG1 prostate cancer on . PSA and MRI stable. Most recent prostate biopsy with CHIRAG. PLAN: 1) Re-check PSA in 6 months and in 12 months. Follow up in 1 year Jevon Zambrano MD Referring Provider: JEVON ZAMBRANO [[id number]] Allergies As of Date: 11/22/2023 (No Known Allergies) Date Reviewed: 11/22/2023 Reviewed by: Jevon Zambrano MD - Fully Assessed Reason for Visit: Follow Up [171] Primary Visit Diagnosis:Prostate cancer (HCC) [C61] Other Visit Diagnosis:Elevated (more content not included)... Normal [facility] MR Prostate WO and W contras t [place] 11-22-2023 * * *Final Report* * * DATE OF EXAM: Nov 22 2023 12:16PM [facility] 0751 - MRI PROSTATE WO/W IVCON / PROCEDURE REASON: Prostate cancer (HCC) * * * * Physician Interpretation * * * * EXAMINATION: MRI PELVIS WITHOUT AND WITH IV CONTRAST (MULTIPARAMETRIC PROSTATE MRI) CLINICAL HISTORY: 68 years old with prostate cancer on active surveillance. Previous biopsy: Positive, Grade Group 1 (GS 3 + 3) 08/25/2020. More recent biopsy 04/12/2022 showed no malignancy. PSA: 1.22 ng/mL (11/15/2023) ; Prior therapy: None. PQ: 3-3-3-5 TECHNIQUE: Multiparametric MRI of the prostate and pelvis performed on a 3T scanner utilizing phase pelvic coil. Sequences obtained: multiplanar T2-WI with small FOV; Axial DWI with multiple B-values and creation of ADC-maps; DCE T1-weighted images through the prostate obtained before, during and after the administration of intravenous gadolinium; prostate dimensions and volume were obtained using a semi-automated software (PointBurst). THREE-DIMENSIONAL IMAGIND imaging including complex volumetric analysis of the prostate was created on a dedicated stand-alone workstation (Dyyno)by the interpreting physician, with images reviewed and archived. CONTRAST: IV: 20 cc of Gadavist. COMPARISON: MRI prostate 10/27/2021 and 02/25/2020. RESULT: Prostate: Dimensions: Volume of approximately 37 cc. Post biopsy hemorrhage: Absent Peripheral zone: Linear and/or wedge-shaped T2/ADC map hypointensities (PI-RADS 2). No focal lesion present. Transition zone: There is transition zone hypertrophy (PI-RADS 1). Lesion #1: Location: left mid anterior transition zone Greatest dimension: 1.0-cm (series:7; image:15) T2-WI: Heterogenous signal intensity with obscured margins (score 3) DWI/ADC: Focal markedly hypointense on ADC and markedly hyperintense on high b-value DWI (score 4) DCE: Negative Extra-prostatic extension: Probably absent (capsule/AFM contact < 1.5 cm; no irregularity or bulge) PI-RADS assessment category: 3 Note: Similar to the prior study. Probably slight asymmetric thickening of the central zone. Neurovascular bundle: Unremarkable. Seminal vesicles: Unremarkable. Adjacent Organ Involvement: Not applicable. Lymph nodes: No enlarged pelvic lymph nodes. Bladder: Unremarkable. Pelvic bones: No suspicious pelvic osseous lesions. Other Findings: None. DIVISION OF RADIOLOGY Provider, [facility] - 11/22/2023 * * *Final Report* * * DATE OF EXAM: Nov 22 2023 12:16PM [facility] 0751 - MRI PROSTATE WO/W IVCON / PROCEDURE REASON: Prostate cancer (HCC) * * * * Physician Interpretation * * * * EXAMINATION: MRI PELVIS WITHOUT AND WITH IV CONTRAST (MULTIPARAMETRIC PROSTATE MRI) CLINICAL HISTORY: 68 years old with prostate cancer on active surveillance. Previous biopsy: Positive, Grade Group 1 (GS 3 + 3) 08/25/2020. More recent biopsy 04/12/2022 showed no malignancy. PSA: 1.22 ng/mL (11/15/2023) ; Prior therapy: None. PQ: 3-3-3-5 TECHNIQUE: Multiparametric MRI of the prostate and pelvis performed on a 3T scanner utilizing phase pelvic coil. Sequences obtained: multiplanar T2-WI with small FOV; Axial DWI with multiple B-values and creation of ADC-maps; DCE T1-weighted images through the prostate obtained before, during and after the administration of intravenous gadolinium; prostate dimensions and volume were obtained using a semi-automated software (PointBurst). THREE-DIMENSIONAL IMAGIND imaging including complex volumetric analysis of the prostate was created on a dedicated stand-alone workstation (Dyyno)by the interpreting physician, with images reviewed and archived. CONTRAST: IV: 20 cc of Gadavist. COMPARISON: MRI prostate 10/27/2021 and 02/25/2020. RESULT: Prostate: Dimensions: Volume of approximately 37 cc. Post biopsy hemorrhage: Absent Peripheral zone: Linear and/or wedge-shaped T2/ADC map hypointensities (PI-RADS 2). No focal lesion present. Transition zone: There is transition zone hypertrophy (PI-RADS 1). Lesion #1: Location: left mid anterior transition zone Greatest dimension: 1.0-cm (series:7; image:15) T2-WI: Heterogenous signal intensity with obscured margins (score 3) DWI/ADC: Focal markedly hypointense on ADC and markedly hyperintense on high b-value DWI (score 4) DCE: Negative Extra-prostatic extension: Probably absent (capsule/AFM contact < 1.5 cm; no irregularity or bulge) PI-RADS assessment category: 3 Note: Similar to the prior study. Probably slight asymmetric thickening of the central zone. Neurovascular bundle: Unremarkable. Seminal vesicles: Unremarkable. Adjacent Organ Involvement: Not applicable. Lymph nodes: No enlarged pelvic lymph nodes. Bladder: Unremarkable. Pelvic bones: No suspicious pelvic osseous lesions. Other Findings: None. IMPRESSION IMPRESSION: 1.0 cm left anterior transition PI-RADS 3 lesion, similar to 10/27/2021. No new lesion suspicious for clinically significant prostate cancer. No lymphadenopathy or suspicious osseous lesions. Number of targets created for MR/US fusion biopsy: Peripheral zone: 0 Transition zone: 1 If present, targets were numbered in order of level of suspicion for clinically significant prostate cancer (Nina score 3 + 4 or higher). PI-RADS v2.1 Assessment Categories: PI-RADS 1: Clinically significant cancer is highly unlikely PI-RADS 2: Clinically significant cancer is unlikely PI-RADS 3: Clinically significant cancer is equivocal PI-RADS 4: Clinically significant cancer is likely PI-RADS 5: Clinically significant cancer is highly likely (V.) Coach Mechanic: [email or web address] Transcribe Date/Time: Nov 22 2023 1:34P Dictated by : ALEXIA MOY MD This examination was interpreted and the report reviewed and electronically signed by: LORENZO HEBERT MD on Nov 22 2023 3:20PM [facility] MR Unspecified body region 3 D post processingon 11-22-2023 * * *Final Report* * * DATE OF EXAM: Nov 22 2023 12:16PM [facility] 0280 - MRI 3D POST PROCESSING / PROCEDURE REASON: Prostate cancer (HCC) * * * * Physician Interpretation * * * * EXAMINATION: MRI PELVIS WITHOUT AND WITH IV CONTRAST (MULTIPARAMETRIC PROSTATE MRI) CLINICAL HISTORY: 68 years old with prostate cancer on active surveillance. Previous biopsy: Positive, Grade Group 1 (GS 3 + 3) 08/25/2020. More recent biopsy 04/12/2022 showed no malignancy. PSA: 1.22 ng/mL (11/15/2023) ; Prior therapy: None. PQ: 3-3-3-5 TECHNIQUE: Multiparametric MRI of the prostate and pelvis performed on a 3T scanner utilizing phase pelvic coil. Sequences obtained: multiplanar T2-WI with small FOV; Axial DWI with multiple B-values and creation of ADC-maps; DCE T1-weighted images through the prostate obtained before, during and after the administration of intravenous gadolinium; prostate dimensions and volume were obtained using a semi-automated software (PointBurst). THREE-DIMENSIONAL IMAGIND imaging including complex volumetric analysis of the prostate was created on a dedicated stand-alone workstation (Dyyno)by the interpreting physician, with images reviewed and archived. CONTRAST: IV: 20 cc of Gadavist. COMPARISON: MRI prostate 10/27/2021 and 02/25/2020. RESULT: Prostate: Dimensions: Volume of approximately 37 cc. Post biopsy hemorrhage: Absent Peripheral zone: Linear and/or wedge-shaped T2/ADC map hypointensities (PI-RADS 2). No focal lesion present. Transition zone: There is transition zone hypertrophy (PI-RADS 1). Lesion #1: Location: left mid anterior transition zone Greatest dimension: 1.0-cm (series:7; image:15) T2-WI: Heterogenous signal intensity with obscured margins (score 3) DWI/ADC: Focal markedly hypointense on ADC and markedly hyperintense on high b-value DWI (score 4) DCE: Negative Extra-prostatic extension: Probably absent (capsule/AFM contact < 1.5 cm; no irregularity or bulge) PI-RADS assessment category: 3 Note: Similar to the prior study. Probably slight asymmetric thickening of the central zone. Neurovascular bundle: Unremarkable. Seminal vesicles: Unremarkable. Adjacent Organ Involvement: Not applicable. Lymph nodes: No enlarged pelvic lymph nodes. Bladder: Unremarkable. Pelvic bones: No suspicious pelvic osseous lesions. Other Findings: None. DIVISION OF RADIOLOGY Provider, [facility] - 11/22/2023 * * *Final Report* * * DATE OF EXAM: Nov 22 2023 12:16PM [facility] 0280 - MRI 3D POST PROCESSING / PROCEDURE REASON: Prostate cancer (HCC) * * * * Physician Interpretation * * * * EXAMINATION: MRI PELVIS WITHOUT AND WITH IV CONTRAST (MULTIPARAMETRIC PROSTATE MRI) CLINICAL HISTORY: 68 years old with prostate cancer on active surveillance. Previous biopsy: Positive, Grade Group 1 (GS 3 + 3) 08/25/2020. More recent biopsy 04/12/2022 showed no malignancy. PSA: 1.22 ng/mL (11/15/2023) ; Prior therapy: None. PQ: 3-3-3-5 TECHNIQUE: Multiparametric MRI of the prostate and pelvis performed on a 3T scanner utilizing phase pelvic coil. Sequences obtained: multiplanar T2-WI with small FOV; Axial DWI with multiple B-values and creation of ADC-maps; DCE T1-weighted images through the prostate obtained before, during and after the administration of intravenous gadolinium; prostate dimensions and volume were obtained using a semi-automated software (PointBurst). THREE-DIMENSIONAL IMAGIND imaging including complex volumetric analysis of the prostate was created on a dedicated stand-alone workstation (Dyyno)by the interpreting physician, with images reviewed and archived. CONTRAST: IV: 20 cc of Gadavist. COMPARISON: MRI prostate 10/27/2021 and 02/25/2020. RESULT: Prostate: Dimensions: Volume of approximately 37 cc. Post biopsy hemorrhage: Absent Peripheral zone: Linear and/or wedge-shaped T2/ADC map hypointensities (PI-RADS 2). No focal lesion present. Transition zone: There is transition zone hypertrophy (PI-RADS 1). Lesion #1: Location: left mid anterior transition zone Greatest dimension: 1.0-cm (series:7; image:15) T2-WI: Heterogenous signal intensity with obscured margins (score 3) DWI/ADC: Focal markedly hypointense on ADC and markedly hyperintense on high b-value DWI (score 4) DCE: Negative Extra-prostatic extension: Probably absent (capsule/AFM contact < 1.5 cm; no irregularity or bulge) PI-RADS assessment category: 3 Note: Similar to the prior study. Probably slight asymmetric thickening of the central zone. Neurovascular bundle: Unremarkable. Seminal vesicles: Unremarkable. Adjacent Organ Involvement: Not applicable. Lymph nodes: No enlarged pelvic lymph nodes. Bladder: Unremarkable. Pelvic bones: No suspicious pelvic osseous lesions. Other Findings: None. IMPRESSION IMPRESSION: 1.0 cm left anterior transition PI-RADS 3 lesion, similar to 10/27/2021. No new lesion suspicious for clinically significant prostate cancer. No lymphadenopathy or suspicious osseous lesions. Number of targets created for MR/US fusion biopsy: Peripheral zone: 0 Transition zone: 1 If present, targets were numbered in order of level of suspicion for clinically significant prostate cancer (Nina score 3 + 4 or higher). PI-RADS v2.1 Assessment Categories: PI-RADS 1: Clinically significant cancer is highly unlikely PI-RADS 2: Clinically significant cancer is unlikely PI-RADS 3: Clinically significant cancer is equivocal PI-RADS 4: Clinically significant cancer is likely PI-RADS 5: Clinically significant cancer is highly likely (V.) Coach Mechanic: [email or web address] Transcribe Date/Time: Nov 22 2023 1:34P Dictated by : ALEXIA MOY MD This examination was interpreted and the report reviewed and electronically signed by: LORENZO HEBERT MD on Nov 22 2023 3:20PM [facility] MRI 3D POST PROCESSINGon MRI 3D POST PROCESSING * * *Final Report* * * DATE OF EXAM: Nov 22 2023 12:16PM [facility] 0280 - MRI 3D POST PROCESSING / PROCEDURE REASON: Prostate cancer (HCC) * * * * Physician Interpretation * * * * EXAMINATION: MRI PELVIS WITHOUT AND WITH IV CONTRAST (MULTIPARAMETRIC PROSTATE MRI) CLINICAL HISTORY: 68 years old with prostate cancer on active surveillance. Previous biopsy: Positive, Grade Group 1 (GS 3 + 3) 08/25/2020. More recent biopsy 04/12/2022 showed no malignancy. PSA: 1.22 ng/mL (11/15/2023) ; Prior therapy: None. PQ: 3-3-3-5 TECHNIQUE: Multiparametric MRI of the prostate and pelvis performed on a 3T scanner utilizing phase pelvic coil. Sequences obtained: multiplanar T2-WI with small FOV; Axial DWI with multiple B-values and creation of ADC-maps; DCE T1-weighted images through the prostate obtained before, during and after the administration of intravenous gadolinium; prostate dimensions and volume were obtained using a semi-automated software (PointBurst). THREE-DIMENSIONAL IMAGIND imaging including complex volumetric analysis of the prostate was created on a dedicated stand-alone workstation (Dyyno)by the interpreting physician, with images reviewed and archived. CONTRAST: IV: 20 cc of Gadavist. COMPARISON: MRI prostate 10/27/2021 and 02/25/2020. RESULT: Prostate: Dimensions: Volume of approximately 37 cc. Post biopsy hemorrhage: Absent Peripheral zone: Linear and/or wedge-shaped T2/ADC map hypointensities (PI-RADS 2). No focal lesion present. Transition zone: There is transition zone hypertrophy (PI-RADS 1). Lesion #1: Location: left mid anterior transition zone Greatest dimension: 1.0-cm (series:7; image:15) T2-WI: Heterogenous signal intensity with obscured margins (score 3) DWI/ADC: Focal markedly hypointense on ADC and markedly hyperintense on high b-value DWI (score 4) DCE: Negative Extra-prostatic extension: Probably absent (capsule/AFM contact < 1.5 cm; no irregularity or bulge) PI-RADS assessment category: 3 Note: Similar to the prior study. Probably slight asymmetric thickening of the central zone. Neurovascular bundle: Unremarkable. Seminal vesicles: Unremarkable. Adjacent Organ Involvement: Not applicable. Lymph nodes: No enlarged pelvic lymph nodes. Bladder: Unremarkable. Pelvic bones: No suspicious pelvic osseous lesions. Other Findings: None. IMPRESSION: 1.0 cm left anterior transition PI-RADS 3 lesion, similar to 10/27/2021. No new lesion suspicious for clinically significant prostate cancer. No lymphadenopathy or suspicious osseous lesions. Number of targets created for MR/US fusion biopsy: Peripheral zone: 0 Transition zone: 1 If present, targets were numbered in order of level of suspicion for clinically significant prostate cancer (Austin score 3 + 4 or higher). PI-RADS v2.1 Assessment Categories: PI-RADS 1: Clinically significant cancer is highly unlikely PI-RADS 2: Clinically significant cancer is unlikely PI-RADS 3: Clinically significant cancer is equivocal PI-RADS 4: Clinically significant cancer is likely PI-RADS 5: Clinically significant cancer is highly likely (V.) Coach Mechanic: [email or web address] Transcribe Date/Time: Nov 22 2023 1:34P Dictated by : ALEXIA MOY MD This examination was interpreted and the report reviewed and electronically signed by: LORENZO HEBERT MD on Nov 22 2023 3:20PM EST [id number] Normal [facility] MRI PROSTATE WO/W IVCONon MRI PROSTATE WO/W IVCON * * *Final Report* * * DATE OF EXAM: Nov 22 2023 12:16PM [facility] 0751 - MRI PROSTATE WO/W IVCON / PROCEDURE REASON: Prostate cancer (HCC) * * * * Physician Interpretation * * * * EXAMINATION: MRI PELVIS WITHOUT AND WITH IV CONTRAST (MULTIPARAMETRIC PROSTATE MRI) CLINICAL HISTORY: 68 years old with prostate cancer on active surveillance. Previous biopsy: Positive, Grade Group 1 (GS 3 + 3) 08/25/2020. More recent biopsy 04/12/2022 showed no malignancy. PSA: 1.22 ng/mL (11/15/2023) ; Prior therapy: None. PQ: 3-3-3-5 TECHNIQUE: Multiparametric MRI of the prostate and pelvis performed on a 3T scanner utilizing phase pelvic coil. Sequences obtained: multiplanar T2-WI with small FOV; Axial DWI with multiple B-values and creation of ADC-maps; DCE T1-weighted images through the prostate obtained before, during and after the administration of intravenous gadolinium; prostate dimensions and volume were obtained using a semi-automated software (PointBurst). THREE-DIMENSIONAL IMAGIND imaging including complex volumetric analysis of the prostate was created on a dedicated stand-alone workstation (Dyyno)by the interpreting physician, with images reviewed and archived. CONTRAST: IV: 20 cc of Gadavist. COMPARISON: MRI prostate 10/27/2021 and 02/25/2020. RESULT: Prostate: Dimensions: Volume of approximately 37 cc. Post biopsy hemorrhage: Absent Peripheral zone: Linear and/or wedge-shaped T2/ADC map hypointensities (PI-RADS 2). No focal lesion present. Transition zone: There is transition zone hypertrophy (PI-RADS 1). Lesion #1: Location: left mid anterior transition zone Greatest dimension: 1.0-cm (series:7; image:15) T2-WI: Heterogenous signal intensity with obscured margins (score 3) DWI/ADC: Focal markedly hypointense on ADC and markedly hyperintense on high b-value DWI (score 4) DCE: Negative Extra-prostatic extension: Probably absent (capsule/AFM contact < 1.5 cm; no irregularity or bulge) PI-RADS assessment category: 3 Note: Similar to the prior study. Probably slight asymmetric thickening of the central zone. Neurovascular bundle: Unremarkable. Seminal vesicles: Unremarkable. Adjacent Organ Involvement: Not applicable. Lymph nodes: No enlarged pelvic lymph nodes. Bladder: Unremarkable. Pelvic bones: No suspicious pelvic osseous lesions. Other Findings: None. IMPRESSION: 1.0 cm left anterior transition PI-RADS 3 lesion, similar to 10/27/2021. No new lesion suspicious for clinically significant prostate cancer. No lymphadenopathy or suspicious osseous lesions. Number of targets created for MR/US fusion biopsy: Peripheral zone: 0 Transition zone: 1 If present, targets were numbered in order of level of suspicion for clinically significant prostate cancer (Austin score 3 + 4 or higher). PI-RADS v2.1 Assessment Categories: PI-RADS 1: Clinically significant cancer is highly unlikely PI-RADS 2: Clinically significant cancer is unlikely PI-RADS 3: Clinically significant cancer is equivocal PI-RADS 4: Clinically significant cancer is likely PI-RADS 5: Clinically significant cancer is highly likely (V..2018) Coach Mechanic: [email or web address] Transcribe Date/Time: Nov 22 2023 1:34P Dictated by : ALEXIA MOY MD This examination was interpreted and the report reviewed and electronically signed by: LORENZO HEBERT MD on Nov 22 2023 3:20PM EST [id number] Normal [facility] No Panel Informationon 11-21 IMPRESSION: 1.0 cm left anterior transition PI-RADS 3 lesion, similar to 10/27/2021. No new lesion suspicious for clinically significant prostate cancer. No lymphadenopathy or suspicious osseous lesions. Number of targets created for MR/US fusion biopsy: Peripheral zone: 0 Transition zone: 1 If present, targets were numbered in order of level of suspicion for clinically significant prostate cancer (Nina score 3 + 4 or higher). PI-RADS v2.1 Assessment Categories: PI-RADS 1: Clinically significant cancer is highly unlikely PI-RADS 2: Clinically significant cancer is unlikely PI-RADS 3: Clinically significant cancer is equivocal PI-RADS 4: Clinically significant cancer is likely PI-RADS 5: Clinically significant cancer is highly likely (V.) Coach Mechanic: [email or web address] Transcribe Date/Time: Nov 22 2023 1:34P Dictated by : ALEXIA MOY MD This examination was interpreted and the report reviewed and electronically signed by: LORENZO HEBERT MD on Nov 22 2023 3:20PM [facility] DIVISION OF RADIOLOGY Radiology Study observation (narrative) [facility] No Panel InformationOrdered By: [facility] Provider on 11-22-2023 [facility] URINALYSIS, REFLEX MICROSCOP ICon 11-22-2023 Bilirubin Ql (U) Negative Negative [facility] Clarity (Unsp spec) Clear Clear [facility] Color (U) Light Yellow Yellow [facility] Glucose Test strip (U) [Mass/Vol] Negative Trace, Negative [facility] Hemoglobin Ql (U) Negative Negative, Trace [facility] Interpretation and review of laboratory results Abnormal [facility] Ketones Ql (U) Negative Negative, Trace [facility] Leukocyte esterase Test strip Ql (U) Negative Negative, 25 Rae/uL [facility] Nitrite Ql (U) Negative Negative [facility] pH (U) 5.5 [pH] 5.0 - 8.0 [facility] Protein (U) [Mass/Vol] Negative Trace, Negative [facility] Specific gravity (U) [Rel density] 1.032 High 1.005 - 1.030 [facility] Urobilinogen Ql (U) Normal Normal [facility] Bilirubin Ql (U) Negative Normal [facility] Comment on above: Order Comment: Speci men Type: URINE SPECIMEN Ordering Facility: [facility] Address: [address] [id number] Performed By: #### L [id number] #### [facility] CLIA [id number] [address] [place] [address] [place] Clarity (Unsp spec) Clear Normal Clear [facility] Comment on above: Order Comment: Speci men Type: URINE SPECIMEN Ordering Facility: [facility] Address: [address] [place] [address] Performed By: #### L [id number] #### [facility] CLIA [id number] [address] [place] [address] [place] Color (U) Light Yellow Normal Yellow [facility] Comment on above: Order Comment: Speci men Type: URINE SPECIMEN Ordering Facility: [facility] Address: [address] [place] [address] Performed By: #### L [id number] #### [facility] CLIA [id number] [address] [place] [address] [place] Glucose Test strip (U) [Mass/Vol] Negative Normal Trace, Negative [facility] Comment on above: Order Comment: Speci men Type: URINE SPECIMEN Ordering Facility: [facility] Address: [address] [place], [place] [id number] Performed By: #### L [id number] #### [facility] CLIA [id number] [address] [place] [address] [place] Hemoglobin Ql (U) Negative Normal Negative, Trace [facility] Comment on above: Order Comment: Speci men Type: URINE SPECIMEN Ordering Facility: [facility] Address: [address] [place], [place] [id number] Performed By: #### L [id number] #### [facility] CLIA [id number] [address] [place] [address] [place] Ketones Ql (U) Negative Normal Negative, Trace [facility] Comment on above: Order Comment: Speci men Type: URINE SPECIMEN Ordering Facility: [facility] Address: [address] [place] [address] Performed By: #### L [id number] #### [facility] CLIA [id number] [address] [place] [address] [place] Leukocyte esterase Test strip Ql (U) Negative Normal Negative, 25 Rae/uL [facility] Comment on above: Order Comment: Speci men Type: URINE SPECIMEN Ordering Facility: [facility] Address: [address] [place] [address] Performed By: #### L [id number] #### [facility] CLIA [id number] [address] [place] [address] [place] Nitrite Ql (U) Negative Normal Negative [facility] Comment on above: Order Comment: Speci men Type: URINE SPECIMEN Ordering Facility: [facility] Address: [address] [place] [address] Performed By: #### L [id number] #### [facility] CLIA [id number] [address] [place] [address] [place] pH (U) 5.5 [pH] Normal 5.0-8.0 [facility] Comment on above: Order Comment: Speci men Type: URINE SPECIMEN Ordering Facility: [facility] Address: [address] [place] [address] Performed By: #### L [id number] #### [facility] CLIA [id number] [address] [place] [address] [place] Protein (U) [Mass/Vol] Negative Normal Trace, Negative [facility] Comment on above: Order Comment: Speci men Type: URINE SPECIMEN Ordering Facility: [facility] Address: [address] [place] [address] Performed By: #### L [id number] #### [facility] CLIA [id number] [address] [place] [address] [place] Specific gravity (U) [Rel density] 1.032 High 1.005-1.030 [facility] Comment on above: Order Comment: Speci men Type: URINE SPECIMEN Ordering Facility: [facility] Address: [address] [place] [address] Performed By: #### L [id number] #### [facility] CLIA [id number] [address] [place] [address] [place] Urobilinogen Ql (U) Normal Normal Normal [facility] Comment on above: Order Comment: Speci men Type: URINE SPECIMEN Ordering Facility: [facility] Address: [address] [place] [address] Performed By: #### L [id number] #### [facility] CLIA [id number] [address] [place] [address] [place] Office Visiton 05-30-2023 Follow-up visit [id number] Roma Benitez 1955 M Date Provider Department Center 05/30/2023 [facility] Family History Problem Relation Age of Onset Sick sinus syndrome Father Other Other Family Status - Relation Status Age at Father Other Level of Service:30479 NM OFFICE/OUTPATIENT ESTABLISHED LOW MDM 20-29 MIN Normal [facility] XR lumbar spine AP/LAT/FLX/E XTon 03-04-2023 XR lumbar spine AP/LAT/FLX/EXT [facility] [address] XRay Report Signed Patient: Marco Antonio Benitez MR#: [id number] 69 : 1955 Acct:[id number] Age/Sex: 67 / M ADM Date: 03/04/23 Loc: XD Room: Type: [facility] CLI Attending Dr: Preston Tejada MD Copies to: [...] Mckinley Marti M.D.03/04/2023 7:34 PM Dictation Location: [address] [address] Transcribed By: [facility] 03/04/231933 Dictated By: Mckinley Marti II, MD 03/04/231931 Signed By: 03/04/231933 [facility] GLYCOHEMOGLOBIN A1Con 2022 ADA RECOMMENDATION SEE BELOW Normal [facility] Comment on above: Result Comment: ADA RECOMMENDED LIMIT 4.0 - 6.0 ADA THERAPEUTIC TARGET < 7.0 ACTION SUGGESTED > 7.0 Performed By: #### A 1C #### [facility] [address] [address] [address] Chari Lantigua Glucose [Mass/Vol] 126 mg/dL Normal [facility] Comment on above: Performed By: #### A 1C #### [facility] [address] [address] [address] Chari Lantigua HbA1c (Bld) [Mass fraction] 6.0 % Normal 4.5-6.2 [facility] Comment on above: Performed By: #### A 1C #### [facility] [address] [address] [address] Chari Lantigua MICROALB CREAT RATIO RANDOMo n 07-21-2022 mALB 3.7 mg/L Normal <=30.0 [facility] Comment on above: Performed By: #### M CRR #### [facility] [address] [place] [address] Dr. Chari LOPEZ CR RATIO 14.4 mg/g Normal 0.0-29.9 [facility] Comment on above: Performed By: #### M CRR #### [facility] [address] [place] [address] Dr. Chari SOLORZANOB CR RATIO RANGE SEE BELOW Normal [facility] Comment on above: Result Comment: NO M ICROALBUMINURIA 0-29 MG/G CLINICAL MICROALBUMINURIA 30-300 MG/G MACROALBUMINURIA >300 MG/G Performed By: #### M CRR #### [facility] [address] [place] [address] Dr. Chari Lantigua URINE CREAT 257.81 mg/dL Normal 20.00-300.00 [facility] Comment on above: Performed By: #### M CRR #### [facility] [address] [place] [address] Dr. Chari Lantigua PROF 14(COMP METB)on 023 Albumin [Mass/Vol] 4.0 g/dL Normal 3.4-5.[address] [facility] Comment on above: Performed By: #### C BC #### [facility] [address] [place] [address] Dr. Chari Lantigua Albumin/Globulin [Mass ratio] 1.2 {ratio} Normal [facility] Comment on above: Performed By: #### C BC #### [facility] [address] [place] [address] Dr. Chari Lantigua ALP [Catalytic activity/Vol] 83 U/L Normal 46-116 [facility] Comment on above: Performed By: #### C BC #### [facility] [address] [place] [address] Dr. Chari Lantigua ALT [Catalytic activity/Vol] 46 U/L Normal 16-63 [facility] Comment on above: Performed By: #### C BC #### [facility] [address] [place], [place] [id number] Dr. Chari Lantigua Anion gap [Moles/Vol] 14.0 mmol/L Normal [facility] Comment on above: Performed By: #### C BC #### [facility] [address] [place] [address] Dr. Chari Lantigua AST [Catalytic activity/Vol] 30 U/L Normal 15-37 [facility] Comment on above: Performed By: #### C BC #### [facility] [address] [address] [address] Chari Lantigua Bilirubin [Mass/Vol] 0.5 mg/dL Normal 0.2-1.0 [facility] Comment on above: Performed By: #### C BC #### [facility] [address] [place] [address] Dr. Chari Lantigua Calcium [Mass/Vol] 8.9 mg/dL Normal 8.5-10.[address] [facility] Comment on above: Performed By: #### C BC #### [facility] [address] [place] [address] Dr. Chari Lantigua Chloride [Moles/Vol] 104 mmol/L Normal 98-107 [facility] Comment on above: Performed By: #### C BC #### [facility] [address] [place] [address] Dr. Chari Lantigua CO2 [Moles/Vol] 28.7 mmol/L Normal 21.0-32.0 [facility] Comment on above: Performed By: #### C BC #### [facility] [address] [place] [address] Dr. Chari Lantigua Creatinine [Mass/Vol] 0.81 mg/dL Normal 0.70-1.30 [facility] Comment on above: Performed By: #### C BC #### [facility] [address] [place] [address] Dr. Chari Lantigua EGFR-AF DUTCH >60 Normal >=60 [facility] Comment on above: Performed By: #### C BC #### [facility] [address] [place] [address] Dr. Chari Lantigua EGFR-NON AF DUTCH >60 Normal >=60 [facility] Comment on above: Performed By: #### C BC #### [facility] [address] [address] [address] Chari Lantigua Globulin (S) [Mass/Vol] 3.4 g/dL Normal [facility] Comment on above: Performed By: #### C BC #### [facility] [address] [address] [address] Chair Lantigua Glucose [Mass/Vol] 120 mg/dL Critically high 74-106 [facility] Comment on above: Performed By: #### C BC #### [facility] [address] [address] [address] Chari Lantigua Potassium [Moles/Vol] 4.7 mmol/L Normal 3.5-5.1 [facility] Comment on above: Performed By: #### C BC #### [facility] [address] [address] [address] Chari Lantigua Protein [Mass/Vol] 7.4 g/dL Normal 6.4-8.[address] [facility] Comment on above: Performed By: #### C BC #### [facility] [address] [address] [address] Chari Lantigua Sodium [Moles/Vol] 142 mmol/L Normal 136-[address] [facility] Comment on above: Performed By: #### C BC #### [facility] [address] [address] [address] Chari Lantigua Urea nitrogen [Mass/Vol] 21.0 mg/dL Critically high 7.0-18.0 [facility] Comment on above: Performed By: #### C BC #### [facility] [address] [address] [address] Chari Lantigua Urea nitrogen/Creatinine [Mass ratio] 25.9 mg/mg Normal [facility] Comment on above: Performed By: #### C BC #### [facility] [address] [address] [address] Chari Lantigua UA RANDOMon 07-21-2022 Bilirubin Ql (U) Negative Normal NEGATIVE [facility] Comment on above: Performed By: #### C BC #### [facility] [address] [place] [address] Dr. Chari Lantigua Clarity (U) CLEAR Normal CLEAR [facility] Comment on above: Performed By: #### C BC #### [facility] [address] [place] [address] Dr. Chari Lnatigua Color (U) YELLOW Normal YELLOW [facility] Comment on above: Performed By: #### C BC #### [facility] [address] [place] [address] Dr. Chari Lantigua Glucose Ql (U) Negative Normal NEGATIVE [facility] Comment on above: Performed By: #### C BC #### [facility] [address] [place] [address] Dr. Chari Lantigua Hemoglobin Ql (U) Negative Normal NEGATIVE [facility] Comment on above: Performed By: #### C BC #### [facility] [address] [place] [address] Dr. Chari Lantigua Ketones Ql (U) Negative Normal NEGATIVE [facility] Comment on above: Performed By: #### C BC #### [facility] [address] [place] [address] Dr. Chari Lantigua LEUKOCYTES Negative Normal NEGATIVE [facility] Comment on above: Performed By: #### C BC #### [facility] [address] [place] [address] Dr. Chari Lantigua Nitrite Ql (U) Negative Normal NEGATIVE [facility] Comment on above: Performed By: #### C BC #### [facility] [address] [place] [address] Dr. Chari Lantigua pH (U) 6.0 [pH] Normal 5-9 [facility] Comment on above: Performed By: #### C BC #### [facility] [address] [place] [address] Dr. Chari Lantigua SPEC GRAVITY 1.025 Normal 1.005-<=1.02 5 [facility] Comment on above: Performed By: #### C BC #### [facility] [address] [place] [address] Dr. Chari Lantigua UA PROTEIN Negative Normal NEGATIVE/ TRACE [facility] Comment on above: Performed By: #### C BC #### [facility] [address] [place] [address] Dr. Chari Lantigua Urobilinogen Qn (U) 0.2 {Kyle'U}/dL Normal 0.2 - 1. 0 [facility] Comment on above: Performed By: #### C BC #### [facility] [address] [place] [address] Dr. Chari Lantigua PROF CHEM 8 (BAS METB)on Anion gap [Moles/Vol] 11.3 mmol/L Normal [facility] Comment on above: Performed By: #### C BC #### [facility] [address] [place] [address] Dr. Chari Lantigua Calcium [Mass/Vol] 8.8 mg/dL Normal 8.5-10.[address] [facility] Comment on above: Performed By: #### C BC #### [facility] [address] [place] [address] Dr. Chari Lantigua Chloride [Moles/Vol] 103 mmol/L Normal 98-107 [facility] Comment on above: Performed By: #### C BC #### [facility] [address] [place] [address] Dr. Chari Lantigua CO2 [Moles/Vol] 29.2 mmol/L Normal 21.0-32.0 [facility] Comment on above: Performed By: #### C BC #### [facility] [address] [place] [address] Dr. Chari Lantigua Creatinine [Mass/Vol] 0.72 mg/dL Normal 0.70-1.30 [facility] Comment on above: Performed By: #### C BC #### [facility] [address] [place] [address] Dr. Chari Lantigua EGFR-AF DUTCH >60 Normal >=60 [facility] Comment on above: Performed By: #### C BC #### [facility] [address] [place] [address] Dr. Chari Lantigua EGFR-NON AF DUTCH >60 Normal >=60 [facility] Comment on above: Performed By: #### C BC #### [facility] [address] [address] [address] Chari Lantigua Glucose [Mass/Vol] 133 mg/dL Critically high 74-106 [facility] Comment on above: Performed By: #### C BC #### [facility] [address] [address] [address] Chari Lantigua Potassium [Moles/Vol] 4.5 mmol/L Normal 3.5-5.1 [facility] Comment on above: Performed By: #### C BC #### [facility] [address] [place] [address] Dr. Chari Lantigua Sodium [Moles/Vol] 139 mmol/L Normal 136-[address] [facility] Comment on above: Performed By: #### C BC #### [facility] [address] [place] [address] Dr. Chari Lantigua Urea nitrogen [Mass/Vol] 16.0 mg/dL Normal 7.0-18.0 [facility] Comment on above: Performed By: #### C BC #### [facility] [address] [place] [address] Dr. Chari Lantigua Urea nitrogen/Creatinine [Mass ratio] 22.2 mg/mg Normal [facility] Comment on above: Performed By: #### C BC #### [facility] [address] [place] [address] Dr. Chari Lantigua SURGICAL PATHOLOGYon 022 Case Report Surgical Pathology Report Case: [id number] Authorizing Provider: Hugo Garcia MD Collected: 04/12/2022 [...] PROSTATE NEEDLE BIOPSY RIGHT, posterior x 2 [facility] Clinical History elevated PSA Clevel and Clinic [...] been determined by the performing laboratory within [facility] s [facility] Pathology and Laboratory Medicine [place] ([facility], [facility], [facility] or [facility]) in a manner consistent with CLIA requirements. One or more of these tests have not been cleared or approved by the FDA. [facility] is regulated under CLIA as qualified to perform high-complexity testing. These tests are used for clinical purposes. They should not be regarded as investigational or for research. Positive and negative controls stain appropriately. [facility] FINAL DIAGNOSIS A. Prostate, left mi [...] biopsy: - Benign prostate tissue. JOLENE/laurie 04/17/2022 [facility] Gross Description A. PROSTATE NEEDLE BIOPSY [...] in one cassette. Gross examination performed at [facility], [address] [place] [id number] 04/12/2022 10:13 PM [facility] Performing Lab Diagnostic interpretation performed at [address]# [id number] [place] Buffer: Gutierrez Jha M.D. [facility] UA DIP, URINE (POC)on 2021 BILIRUBIN UA (POCT) Negative Negative [facility] CLARITY UA (POCT) Clear [facility] COLOR UA (POCT) Yellow [facility] GLUCOSE UA (POCT) Negative Negative mg/dL [facility] HEMOGLOBIN/BLOOD UA (POCT) Negative Negative [facility] KETONE UA (POCT) Negative Negative mg/dL [facility] LEUKOCYTES UA (POCT) Negative Negative [facility] NITRITE UA (POCT) Negative Negative [facility] PH UA (POCT) 6.0 4.5 - 8.0 [facility] Protein Ql (U) Negative Negative mg/dL [facility] SPECIFIC GRAVITY UA (POCT) 1.025 1.005 - 1.030 [facility] UROBILINOGEN UA (POCT) 0.2 E.U./dL Normal E.U./dL [facility] US TRANSRECTAL PROSTATE (ALEXEI S) (POC) GUKI USE ONLYon 04-12-2022 [facility] Covid-19 PCR (CVDTB)on 01-22 SARS-CoV-2 (COVID-19) RNA ILA+probe Ql (Unsp spec) Detected Critically abnormal NOT DETECTED [facility] Comment on above: Result Comment: This test is not yet approved or cleared by the [place] FDA. When there are no FDA-approved or cleared tests available, and other criteria are met, FDA can make tests available under an emergency access mechanism called an Emergency Use Authorization (EUA). The EUA for this test is supported by the [place] of Health and Human Service's (HHS's) declaration [...] used). Performed By: #### C VDTBH #### [facility] [address] [place] [address] Dr. Chari Lantigua INFLUENZA A AND B AGon 02-08 INFLUENZA A AG Negative Normal NEGATIVE SEE COMMENT [facility] Comment on above: Performed By: #### I NFLUAB #### [facility] [address] [place] [address] Dr. Chari Lantigua INFLUENZA B AG Negative Normal NEGATIVE SEE COMMENT [facility] Comment on above: Performed By: #### I NFLUAB #### [facility] [address] [place] [address] Dr. Chari Lantigua INTERNAL CONTROLS Within Normal Limits Normal Wi thin Normal Limits [facility] Comment on above: Performed By: #### I NFLUAB #### [facility] [address] [place] [address] Dr. Chari Lantigua CBC AUTO DIFFon 01-19-2022 BASO # 0.0 103/ul Normal 0.0-0.1 [facility] Comment on above: Performed By: #### C BC #### [facility] [address] [place] [address] Dr. Chari Lantigua Basophils/100 WBC (Bld) 0.3 % Normal 0.2-2.0 [facility] Comment on above: Performed By: #### C BC #### [facility] [address] [place] [address] Dr. Chari Lantigua EO # 0.2 103/ul Normal 0.0-0.7 [facility] Comment on above: Performed By: #### C BC #### [facility] [address] [place] [address] Dr. Chari Lantigua Eosinophils/100 WBC (Bld) 3.1 % Normal 0.9-7.0 [facility] Comment on above: Performed By: #### C BC #### [facility] [address] [place] [address] Dr. Chari Lantigua Erythrocyte distribution width (RBC) [Ratio] 13.2 % Normal 11.0-15.0 [facility] Comment on above: Performed By: #### C BC #### [facility] [address] [place] [address] Dr. Chari Lantigua Hematocrit (Bld) [Volume fraction] 43.4 % Normal 42.0-54.0 [facility] Comment on above: Performed By: #### C BC #### [facility] [address] [place] [address] Dr. Chari Lantigua Hemoglobin (Bld) [Mass/Vol] 14.5 g/dL Normal 14.0-18.0 [facility] Comment on above: Performed By: #### C BC #### [facility] [address] [place] [address] Dr. Chari Lantigua IG # 0.03 10e3/ul Normal 0.00-0.03 [facility] Comment on above: Performed By: #### C BC #### [facility] [address] [place] [address] Dr. Chari Lantigua IG % 0.4 % Normal 0.0-0.5 [facility] Comment on above: Performed By: #### C BC #### [facility] [address] [place] [address] Dr. Chari Lantigua LYMPH # 1.7 103/ul Normal 1.2-3.8 [facility] Comment on above: Performed By: #### C BC #### [facility] [address] [place] [address] Dr. Chari Lantigua Lymphocytes/100 WBC (Bld) 23.1 % Normal 20.5-60.0 [facility] Comment on above: Performed By: #### C BC #### [facility] [address] [place] [address] Dr. Chari Lantigua MANUAL DIFF REQ NO Normal [facility] Comment on above: Performed By: #### C BC #### [facility] [address] [place] [address] Dr. Chari Lantigua MCH (RBC) [Entitic mass] 31.3 pg Normal 25.9-34.0 [facility] Comment on above: Performed By: #### C BC #### [facility] [address] [place] [address] Dr. Chari Lantigua MCHC (RBC) [Mass/Vol] 33.4 g/dL Normal 29.9-35.2 [facility] Comment on above: Performed By: #### C BC #### [facility] [address] [place] [address] Dr. Chari Lantigua MCV (RBC) [Entitic vol] 93.7 fL Normal 80.0-94.0 [facility] Comment on above: Performed By: #### C BC #### [facility] [address] [place] [address] Dr. Chari Lantigua MONO # 0.9 103/ul Critically high 0.3-0.8 [facility] Comment on above: Performed By: #### C BC #### [facility] [address] [place] [address] Dr. Chari Lantigua Monocytes/100 WBC (Bld) 12.1 % Critically high 1.7-12.0 [facility] Comment on above: Performed By: #### C BC #### [facility] [address] [place] [address] Dr. Chari Lantigua NEUT # 4.6 103/ul Normal 1.4-6.5 [facility] Comment on above: Performed By: #### C BC #### [facility] [address] [address] [address] Chari Lantigua Neutrophils/100 WBC (Bld) 61.0 % Normal 43.0-75.0 [facility] Comment on above: Performed By: #### C BC #### [facility] [address] [address] [address] Chari Lantigua Platelet mean volume (Bld) [Entitic vol] 8.2 fL Critically low 9.5-13.5 [facility] Comment on above: Performed By: #### C BC #### [facility] [address] [address] [address] Chari Lantigua PLT 219 103/ul Normal 150-450 [facility] Comment on above: Performed By: #### C BC #### [facility] [address] [address] [address] Chari Lantigua RBC 4.63 106/ul Critically low 4.70-6.10 [facility] Comment on above: Performed By: #### C BC #### [facility] [address] [address] [address] Chari Lantigua WBC 7.5 103/ul Normal 4.0-11.0 [facility] Comment on above: Performed By: #### C BC #### [facility] [address] [address] [address] Chari Lantigua GLYCOHEMOGLOBIN A1Con 2021 ADA RECOMMENDATION SEE BELOW Normal [facility] Comment on above: Result Comment: ADA RECOMMENDED LIMIT 4.0 - 6.0 ADA THERAPEUTIC TARGET < 7.0 ACTION SUGGESTED > 7.0 Performed By: #### C BC #### [facility] [address] [place] [address] Dr. Chari Lantigua Glucose [Mass/Vol] 140 mg/dL Normal [facility] Comment on above: Performed By: #### C BC #### [facility] [address] [place] [address] Dr. Chari Lantigua HbA1c (Bld) [Mass fraction] 6.5 % Critically high 4.5-6.2 [facility] Comment on above: Performed By: #### C BC #### [facility] [address] [address] [address] Chari Lantigua LIPID PROFILEon 01-19-2022 CHOL-HDL RATIO NORM SEE BELOW Normal [facility] Comment on above: Result Comment: 3.3 - 4.4 LOW RISK 4.4 - 7.1 AVERAGE RISK 7.1 - 11.0 MODERATE RISK >11.0 HIGH RISK Performed By: #### C MP, LIPID #### [facility] [address] [address] [address] Chari Lantigua Cholesterol [Mass/Vol] 139 mg/dL Normal <=200 [facility] Comment on above: Performed By: #### C MP, LIPID #### [facility] [address] [place] [address] Dr. Chari Lantigua Cholesterol in HDL [Mass/Vol] 42 mg/dL Normal 40-60 [facility] Comment on above: Performed By: #### C MP, LIPID #### [facility] [address] [place] [address] Dr. Chari Lantigua Cholesterol in LDL [Mass/Vol] 71.4 mg/dL Normal [facility] Comment on above: Performed By: #### C MP, LIPID #### [facility] [address] [place] [address] Dr. Chari Lantigua Cholesterol.total/Cho lesterol in HDL [Mass ratio] 3.3 {ratio} Normal [facility] Comment on above: Performed By: #### C MP, LIPID #### [facility] [address] [place] [address] Dr. Chari Lantigua HDL NORMAL > or = 60 mg/dl - LO W CARDIOVASCULAR RISK <40 mg/dl - HIGH CARDIOVASCULAR RISK Normal [facility] Comment on above: Performed By: #### C MP, LIPID #### [facility] [address] [place] [address] Dr. Chari Lantigua LDL CALC NORMAL SEE BELOW Normal [facility] Comment on above: Result Comment: <100 mg/dl OPTIMAL 100 - 129 mg/dl NEAR OR ABOVE OPTIMAL 130 - 159 mg/dl BORDERLINE HIGH 160 - 189 mg/dl HIGH >190 mg/dl VERY HIGH Performed By: #### C MP, LIPID #### [facility] [address] [place] [address] Dr. Chari Lantigua Triglyceride [Mass/Vol] 128 mg/dL Normal <=150 [facility] Comment on above: Performed By: #### C MP, LIPID #### [facility] [address] [address] [address] Chari Lantigua VLDL CALC 25.6 mg/dL Normal [facility] Comment on above: Performed By: #### C MP, LIPID #### [facility] [address] [place] [address] Dr. Chari Lantigua PROF 14(COMP METB)on 022 Albumin [Mass/Vol] 3.6 g/dL Normal 3.4-5.[address] [facility] Comment on above: Performed By: #### C MP, LIPID #### [facility] [address] [place] [address] Dr. Chari Lantigua Albumin/Globulin [Mass ratio] 1.2 {ratio} Normal [facility] Comment on above: Performed By: #### C MP, LIPID #### [facility] [address] [place] [address] Dr. Chari Lantigua ALP [Catalytic activity/Vol] 71 U/L Normal 46-116 [facility] Comment on above: Performed By: #### C MP, LIPID #### [facility] [address] [place] [address] Dr. Chari Lantigua ALT [Catalytic activity/Vol] 38 U/L Normal 16-63 [facility] Comment on above: Performed By: #### C MP, LIPID #### [facility] [address] [place] [address] Dr. Chari Lantigua Anion gap [Moles/Vol] 10.3 mmol/L Normal [facility] Comment on above: Performed By: #### C MP, LIPID #### [facility] [address] [place] [address] Dr. Chari Lantigua AST [Catalytic activity/Vol] 26 U/L Normal 15-37 [facility] Comment on above: Performed By: #### C MP, LIPID #### [facility] [address] [address] [address] Chari Lantigua Bilirubin [Mass/Vol] 0.7 mg/dL Normal 0.2-1.0 [facility] Comment on above: Performed By: #### C MP, LIPID #### [facility] [address] [address] [address] Chari Lantigua Calcium [Mass/Vol] 8.5 mg/dL Normal 8.5-10.[address] [facility] Comment on above: Performed By: #### C MP, LIPID #### [facility] [address] [place] [address] Dr. Chari Lantigua Chloride [Moles/Vol] 105 mmol/L Normal 98-107 [facility] Comment on above: Performed By: #### C MP, LIPID #### [facility] [address] [place] [address] Dr. Chari Lantigua CO2 [Moles/Vol] 30.3 mmol/L Normal 21.0-32.0 [facility] Comment on above: Performed By: #### C MP, LIPID #### [facility] [address] [place] [address] Dr. Chari Lantigua Creatinine [Mass/Vol] 0.77 mg/dL Normal 0.70-1.30 [facility] Comment on above: Performed By: #### C MP, LIPID #### [facility] [address] [place] [address] Dr. Chari Lantigua EGFR-AF DUTCH >60 Normal >=60 [facility] Comment on above: Performed By: #### C MP, LIPID #### [facility] [address] [place] [address] Dr. Chari Lantigua EGFR-NON AF DUTCH >60 Normal >=60 [facility] Comment on above: Performed By: #### C MP, LIPID #### [facility] [address] [place] [address] Dr. Chari Lantigua Globulin (S) [Mass/Vol] 3.0 g/dL Normal [facility] Comment on above: Performed By: #### C MP, LIPID #### [facility] [address] [address] [address] Chari Lantigua Glucose [Mass/Vol] 149 mg/dL Critically high 74-106 [facility] Comment on above: Performed By: #### C MP, LIPID #### [facility] [address] [address] [address] Chari Lantigua Potassium [Moles/Vol] 4.6 mmol/L Normal 3.5-5.1 [facility] Comment on above: Performed By: #### C MP, LIPID #### [facility] [address] [address] [address] Chari Lantigua Protein [Mass/Vol] 6.6 g/dL Normal 6.4-8.[address] [facility] Comment on above: Performed By: #### C MP, LIPID #### [facility] [address] [place] [address] Dr. Chari Lantigua Sodium [Moles/Vol] 141 mmol/L Normal 136-[address] [facility] Comment on above: Performed By: #### C MP, LIPID #### [facility] [address] [place] [address] Dr. Chari Lantigua Urea nitrogen [Mass/Vol] 12.0 mg/dL Normal 7.0-18.0 [facility] Comment on above: Performed By: #### C MP, LIPID #### [facility] [address] [place] [address] Dr. Chari Lantigua Urea nitrogen/Creatinine [Mass ratio] 15.6 mg/mg Normal [facility] Comment on above: Performed By: #### C MP, LIPID #### [facility] [address] [place] [address] FOOT RT WO [...] CHAPIS HUANG Date: 2021-11-06 09:52 Normal [facility] PROSTATE WO/W IVCONon [facility] HOMOCYSTEINEon 10-12-2021 Homocyst(e)ine, Plasma 7.7 umol/L Normal 0.0-17.2 [facility] Comment on above: Performed By: #### H OMCY #### [facility] [address] [place] [address] Dr. Chari Lantigua ANTI-BETA 2 GLYCOPROTEIN 1on 10-06-2021 ANTI B2GP1 IGG 0.1 g units Normal 0.0-19.9 [facility] Comment on above: Performed By: #### 9 0118, [id number] #### [facility] [address] [place] [address], [facility] ANTI B2GP1 IGM 1.7 m units Normal 0.0-19.9 [facility] Comment on above: Performed By: #### 9 0118, [id number] #### [facility] [address] [place] [address], [facility] ANTICARDIOLIPIN ANTIBODYon 0 10-06-2021 CARDIOLIPIN IGG 1.6 GPL Normal 0.0-22.9 [facility] Comment on above: Performed By: #### 9 0118, 30369 #### [facility] [address] [place] [address], [facility] CARDIOLIPIN IGM 0.9 MPL Normal 0.0-10.9 [facility] Comment on above: Performed By: #### 9 0118, 90161 #### [facility] [address] [place] [address], [facility] ANTITHROMBIN III ACTIVITYon 10-06-2021 AT 3 ACTIVITY 100 % Normal 70-120 [facility] Comment on above: Performed By: #### 5 3017, 14353, 17897, 06203 #### [facility] [address] [place] [address], [facility] FACTOR V LEIDEN R506Q [place] [id number] 10-06-2021 FACTOR V LEIDEN Heterozygous Abnormal [facility] Comment on above: Result Comment: Alem cation for testing: Assess genetic risk for thrombosis. HETEROZYGOUS: One copy of the factor V Leiden variant, c.1601G>A; p.Rfs028Ppr, was detected. This is associated with activated [...] function in the F5 gene variant c.1601G>A (p.Elr476Wlv). Legacy nomenclature: R506Q (1691G>A) CLINICAL SENSITIVITY: 20-50 percent of individuals with an isolated VTE have the FVL variant. METHODOLOGY: Polymerase chain reaction and fluorescence monitoring. ANALYTICAL SENSITIVITY AND SPECIFICITY: 99 percent. LIMITATIONS: Diagnostic errors can occur due to rare sequence variations. F5 gene mutations, other than p.Gld499Gjx, will not be detected. This test was developed and its performance characteristics determined by [facility]. It has not been cleared or approved by the US Food and Drug Administration. This test was performed in a CLIA certified laboratory and is intended for clinical purposes. Counseling and informed consent are recommended for genetic testing. Consent forms are available online. Performed By: [facility] [address] [place] [id number] Wood Buffer: Harriett Martins MD FAC SPECIMEN Whole Blood Normal [facility] LUPUS ANTICOAGULANTon 2021 LUPUS ANTICOAGUL Negative Normal NEGATIVE [facility] Comment on above: Result Comment: BY H EXAGONAL PHASE PHOSPHOLIPID METHODOLOGY Performed By: #### 5 3017, 69620, 26215, 13923 #### [facility] [address] [place] [address], [facility] PROTEIN C ACTIVITYon 022 PROTEIN C ACTIV 110 % Normal 60-140 [facility] Comment on above: Performed By: #### 5 3017, 55831, 84902, 31268 #### [facility] [address] [place] [address], [place] PROTEIN S ACTIVITYon 022 PROTEIN S ACTIV 81 % Normal 60-165 [facility] Comment on above: Performed By: #### 5 3017, 06755, 97920, 12028 #### [facility] [address] [place] [address], [place] PROTHROMBIN (F2) [id number] 560 60on 10-06-2021 PROTHROMBIN FRET ( PCR AND FRET) Negative Normal [facility] Comment on above: Result Comment: Alem cation for testing: Assess genetic risk for thrombosis. NEGATIVE: The Factor II, prothrombin O71202V mutation, was not detected. Other causes of [...] M.D., Ph.D. 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 PATHOGENIC VARIANT TESTED: F2 c.*97G>A (C11173I). CLINICAL SENSITIVITY FOR VENOUS THROMBOSIS: Approximately 10 percent. METHODOLOGY: Polymerase chain reaction and fluorescence monitoring. ANALYTICAL SENSITIVITY AND SPECIFICITY: 99 percent. LIMITATIONS: Diagnostic errors can occur due to rare sequence variations. F2 gene variants, other than c.*97G>A (Y06281C), will not be detected. This test was developed and its performance characteristics determined by [facility]. It has not been cleared or approved by the US Food and Drug Administration. This test was performed in a CLIA certified laboratory and is intended for clinical purposes. Counseling and informed consent are recommended for genetic testing. Consent forms are available online. Performed By: [facility] [address] [place] [id number] Wood Buffer: Harriett Martins MD PT PCR SPECIMEN Whole Blood Normal [facility] Cardiovascular Lab Reporton 11-19-2020 Cardiovascular Lab Report [facility] Patient Name: Marco Antonio [facility] Jena Longoria MR #: [id number] Department of Physician: Donna Faith M.D. Division of Service Date: 11/18/2020 Cardiology Birthdate: 1955 Adult Cardiovascular Room #: [address] [address] Cardiovascular Laboratory Report FINAL IMPRESSIONS: 1. Severe, [...] the left radial artery was obtained. A 6-Turkish 11 cm sheath was inserted without difficulty. [...] P/Berry Fisher M.D. Date Trans: 11/19/2020 05:18 A/mmo [id number] cc: Annette Block M.D. [address] [place] [address] CARDIAC SCORINGon 05-0 CT CARDIAC SCORING Addendum Begins Patient Name: MARCO ANTONIO BENITEZ ADDENDUM: NON-CARDIOVASCULAR FINDINGS INCLUDED LUNGS, AIRWAYS AND [...] MD Addendum Ends Patient Name: MARCO ANTONIO BENITEZ STUDY: CT CARDIAC SCORING; 10/24/2020 8:02 am INDICATION: Hyperlipidemia, unspecified. COMPARISON: None. ACCESSION NUMBER(S): [id number] ORDERING CLINICIAN: ANNETTE BLOCK TECHNIQUE: Using prospective [...] increased >800 Lyubov et al. JCCT 2016 (http://dx.doi.org/10. 1016/j.jcct.2016.11.00 3) GARCIA Percentile In general, greater than 75th [...] Calcification can be calcuate using link below [email or web address] [email or web address] x Carroll et al. JACC 2014 (http://dx.doi.org/10. 1016/j.j acc.2015.08.035) Reading Disc Pad Grinder: Dr. Vaughn Park, Date: 10/24/2020 11:12 am Electronically signed by: MCKINLEY FARR MD [facility] Lower Ext/No Jt/w/oon 2017 Lower Ext/No Jt/w/o [facility] [id number] [facility] [place] [address]Jkwle Ext/No Jt/w/oMR#: [id number] Acct: [id number]: MARCO ANTONIO BENITEZ Rep #: [id number]: 1955 M 63 From: Vincent Grier MDPCP: OUT OF TOWN DOCTOR Status: REG CLIStudy: Lower Ext/No Jt/w/o Date of Exam: 06/10/18Exam# [id number] Ordering Dr: Rishi MinayaUM by Dajuan Camejo MD on 06/11/18 at 1438 ADDENDUM==== ==ADDENDUM:Study is compared with previous plain film and [...] Dajuan Camejo MD on 06/11/18 at 1438 ADDENDUM==== ==ADDENDUM:Study is compared with previous plain film and [...] Camejo MD on 06/11/18 at 1438ORDER #: [id number] MRI/Lower Ext/No Jt/w/o1/ 1445Date cc: Erin Minaya DPM; OUT OF TOWN DOCTOR *SignedADDENDUM by Dajuan Camejo MD on 06/11/18 at 1438ORDER #: [id number] MRI/Lower Ext/No Jt/w/o108/12/17 1445Date cc: Erin Minaya DPM; OUT OF TOWN DOCTOR *SignedSTUDY: MRI RIGHT MIDFOOTREASON FOR EXAM: Male, 63 years old. Pain.TECHNIQUE: Standardized fat and water weighted pulse sequences wereobtained in all 3 orthogonal planes.COMPARISON: None. 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 Normal calcaneocuboidarticula tion. Normal navicular-cuneiform articulations. There is milddegenerative arthrosis [...] Normal extensordigitorum brevis muscle.Normal subcutis adipose space. ORD ER #: [id number] MRI/Lower Ext/No Jt/w/oIMPRESSION:Posto perative changes are seen with fusion at the second tarsometatarsalarticul ation. 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.Marrow edema with bone bruise or stress injury of the fourth metatarsal.Arthritic changes.Electronically Signed:Vincent Grier MD at 21:17 ESTTel , Service support , DQ: Erin Minaya DPM; OUT OF TOWN DOCTOR Coach Mechanic:Rossy Valencia [facility] Vital Signs Date Time Vital Sign Value Performing Clinician Facility 11-22-2023 13:24-0400 Body height 172.7 cm Jevon Zambrano MD Work Phone: [facility] 11-22-2023 13:24-0400 Body mass index (BMI) [Ratio] 32.8 kg/m2 Jevon Zambrano MD Work Phone: [facility] 11-22-2023 13:24-0400 Body weight 97.85 kg Jevon Zambrano MD Work Phone: [facility] 07-31-2023 09:03-0500 Body height 172.7 cm Yudy Risaliti HAT CLEANER Work Phone: [facility] 07-31-2023 09:03-0500 Body mass index (BMI) [Ratio] 32.84 kg/m2 Yudy Risaliti HAT CLEANER Work Phone: [facility] 07-31-2023 09:03-0500 Body weight 97.98 kg Yudy Risaliti HAT CLE[employer]ER Work Phone: [facility] 07-31-2023 09:03-0500 Diastolic blood pressure 76 mm[Hg] Yudy Risaliti HAT CLEANER Work Phone: [facility] 07-31-2023 09:03-0500 Heart rate 74 /min Yudy Risaliti H[employer] CLE[employer]ER Work Phone: [facility] 07-31-2023 09:03-0500 SaO2% (BldA) [Mass fraction] 96 % Yudy Risaliti HAT CLEANER Work Phone: [facility] 07-31-2023 09:03-0500 Systolic blood pressure 124 mm[Hg] Yudy Risaliti HAT CLEANER Work Phone: [facility] 03-05-2023 11:20-0400 Body height 172.72 cm Preston Tejada Other [facility] Other 03-05-2023 11:20-0400 Body mass index (BMI) [Ratio] 32.99 kg/m2 Preston Tejada Other [facility] Other 03-05-2023 11:20-0400 Body weight 98.43 kg Preston Tejada Other [employer] Other 03-05-2023 11:20-0400 Diastolic blood pressure 80 mm[Hg] Preston Tejada Other [employer] Other 03-05-2023 11:20-0400 Systolic blood pressure 126 mm[Hg] Preston Tejaad Other [facility] Other 03-08-2022 12:40-0400 Body height 172.72 cm Preston Tejada Other [facility] Other 03-08-2022 12:40-0400 Body mass index (BMI) [Ratio] 36.94 kg/m2 Preston Tejada Other [facility] Other 03-08-2022 12:40-0400 Body weight 110.22 kg Preston Tejada Other [facility] Other 02-15-2022 12:30-0400 Body height 172.72 cm Annette Cordele II Other [facility] Other 02-15-2022 12:30-0400 Body mass index (BMI) [Ratio] 36.94 kg/m2 Annette Cordele II Other [facility] Other 02-15-2022 12:30-0400 Body weight 110.22 kg Annette Nilton II Other [employer] Other Encounters Encounter Date Encounter Type Care Provider Facility Start: 11-22-2023 End: 11-22-2023 ambulatory Jevon Zambrano MD Work Phone: Urology Start: 11-22-2023 End: 11-22-2023 Patient encounter procedure Jevon Zambrano MD Work Phone: Urology Comment on above: Prostate cancer (HCC ) (Primary Dx); Elevated PSA Start: 11-22-2023 End: 11-22-2023 Subsequent hospital visit by physician Mri 6 Radio Main Q (I-Stat/1.5t/3t) Work Phone: MRI Q Comment on above: Prostate cancer (HCC ) [C61] Start: 11-14-2023 ambulatory [facility] Q Comment on above: MRI Result Start: 11-14-2023 E-mail encounter fro m caregiver [facility] MRI Q Start: 07-31-2023 End: 07-31-2023 ambulatory ANNETTE BLOCK Not Available Start: 07-31-2023 End: 07-31-2023 Office outpatient visit 25 minutes Yudy Gupta NP Work Phone: [facility] Comment on above: Essential (primary) hypertension (CMS/HCC) (Primary Dx); Pure hypercholesterolemia (CMS/HCC); Prediabetes; 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 Start: 03-05-2023 End: 03-05-2023 ambulatory Preston Tejada Other [facility] [employer] Other Start: 03-05-2023 Office outpatient vi sit 15 minutes Preston Tejada [facility] Start: 03-04-2023 End: 03-04-2023 ambulatory Preston Tejada Facility:[facility] Start: 10-26-2022 End: 10-26-2022 ambulatory Mark Anthony Real MD Work Phone: Urology Comment on above: Prostate cancer (HCC ) (Primary Dx) Start: 10-26-2022 End: 10-26-2022 Telemedicine consultation with patient Mark Anthony Real MD Work Phone: [facility] Start: 10-03-2022 End: 10-04-[address] DOCTOR REVELES Facility:[facility] Start: 07-21-2022 End: 07-22-[address] ANNETTE BLOCK Facility:[facility] Start: 05-23-2022 End: 05-24-[address] ANNETTE BLOCK Facility:[facility] Start: 04-20-2022 Telephone encounter Mark Anthony garcia MD Work Phone: Urology Comment on [...] 03-08-2022 End: 03-08-2022 ambulatory Preston Tejada Other [facility] [employer] Other Start: 03-08-2022 Office outpatient vi sit 15 minutes Preston Tejada [facility] Start: 03-07-2022 End: 03-07-2022 Patient encounter procedure MD Annette Block Work Phone: [facility] [place] Start: 02-21-2022 Telephone encounter Mark Anthony garcia MD Work Phone: Urology Comment on above: Appointment Start: 02-15-2022 End: 02-15-2022 ambulatory Annette Nilton II Other [facility] [employer] Other Start: 02-15-2022 Office outpatient ne w 45 minutes Annette Cordele II [facility] Start: 02-15-2022 End: 02-15-2022 Patient encounter procedure MD Annette Block Work Phone: [facility] Start: 02-08-2022 End: 02-08-[address] ANNETTE BLOCK Facility:[facility] Start: 01-19-2022 End: 01-20-[address] ANNETTE BLOCK Facility:[facility] Start: 11-23-2021 End: 11-23-2021 ambulatory Hugo Garcia MD Work Phone: Urology Comment on above: Prostate cancer (HCC ) Start: 11-23-2021 End: 11-23-2021 Telemedicine consultation with patient Hugo Garcia MD Work Phone: [facility] Start: 11-06-2021 End: 11-07-2021 ambulatory RON MCCORMICK Facility:[facility] Start: 11-02-2021 End: 11-03-2021 ambulatory RON MCCORMICK Facility:[facility] Start: 10-27-2021 End: 10-27-2021 Subsequent hospital visit by physician Mri 6 Radio Main Q (I-Stat/1.5t/3t) Work Phone: MRI Q Comment on above: Malignant neoplasm o f prostate (HCC) [C61] Start: 10-11-2021 End: 10-12-[address] DOCTOR REVELES Facility:[facility] Start: 11-18-2020 End: 11-19-2020 ambulatory ANNETTE PABLO Facility:[facility] Start: 06-10-2018 Patient encounter procedure Erin hood Facility:[facility] Start: 02-06-2017 Ambulatory ANNETTE BLOCK Facility:1 [id number] Start: 02-06-2017 Ambulatory Facility:9 507 Procedures Date Procedure Procedure Detail Performing Clinician Start: 11-22-2023 Urnls dip stick/tabl et rgnt auto w/o microscopy Bulk Order Provider Start: 11-22-2023 3d rendering w/interp&postproc diff work station Jevon Zambrano MD Work Phone: Start: 11-22-2023 Mri pelvis w/o & w/contrast material Jevon Zambrano MD Work Phone: Start: 10-03-[address] ANNETTE BLOCK Comment on above: Performed By: #### P SAD #### [facility] [address] [place] [address] Dr. Chari Lantigua Start: 04-12-2022 Level iv surg pathol ogy gross&microscopic exam Hugo Garcia MD Work Phone: Start: 04-12-2022 Us transrct prstate vol brachytx plnning spx Hugo Garcia MD Work Phone: Start: 04-12-2022 Urnls dip stick/tabl et rgnt auto w/o microscopy Hugo Garcia MD Work Phone: Start: 04-11-[address] ANNETTE BLOCK Comment on above: Performed By: #### P SAD #### [facility] [address] [place] [address] Dr. Chari Lantigua Start: 03-07-2022 X-ray of [...] DTaP,Tdap,Td Vaccine (2 - Td or Tdap) [facility] Start: 10-04-2027 PROSTATE CANCER SCREENING DISCUSSION PROSTATE CANCER SCREENING DISCUSSION [facility] Start: 10-04-2027 Prostate specific antigen measurement Prostate Cancer Screening Discussion [facility] Start: 04-15-2027 Screening for malignant neoplasm of colon [facility] Start: 07-30-2024 Urine screening for protein Diabetes: Urine Protein Screening [facility] Start: 07-20-2024 End: 07-20-2024 Patient encounter procedure 07/20/2024 8:00 AM EST Office Visit [facility] [address] [place] [phone] Jr. Yeimi Cardenas, [address] [facility] [address] [place] [address] [facility] Start: 02-13-2024 End: 02-13-2024 Patient encounter procedure 02/13/2024 9:15 AM EDT Office Visit [facility] [address] [place] [phone] Annette Block MD [address] [place] [address] [facility] Start: 01-29-2024 End: 07-31-2024 25-hydroxyvitamin D3 [Mass/volume] in Serum or Plasma Vitamin D 25 hydroxy Lab Routine Vitamin D deficiency Expected: 01/29/2024 (Approximate), Expires: 07/31/2024 [facility] Comment on above: Expected: 01/29/2024 (Approximate), Expi res: 07/31/2024 Start: 01-29-2024 End: 07-31-2024 CBC W Auto Differential panel - Blood CBC and differential Lab Routine Essential (primary) hypertension (CMS/HCC) Expected: 01/29/2024 (Approximate), Expires: 07/31/2024 [facility] Work Phone: Comment on above: Expected: 01/29/2024 (Approximate), Expi res: 07/31/2024 Start: 01-29-2024 End: 01-29-2024 Comprehensive metabolic 2000 panel - Serum or Plasma Comprehensive metabolic panel Lab Routine Essential (primary) hypertension (CMS/HCC) Expected: 01/29/2024 (Approximate), Expires: 01/29/2024 [facility] Comment on above: Expected: 01/29/2024 (Approximate), Expi res: 01/29/2024 Start: 01-29-2024 End: 07-31-2024 Lipid 1996 panel - Serum or Plasma Lipid panel Lab Routine Pure hypercholesterolemia (CMS/HCC) Expected: 01/29/2024 (Approximate), Expires: 07/31/2024 [facility] Comment on above: Expected: 01/29/2024 (Approximate), Expi res: 07/31/2024 Start: 01-17-2024 DIABETES SCREEN DIABETES SCREEN [facility] Start: 01-17-2024 Diabetes Screening Diabetes Screening [facility] Start: 11-29-2023 End: 11-29-2023 ambulatory 11/29/2023 12:00 PM EDT Results Only [place] [address] [address] [place] [address] PSA/PROSTSPECAG DIAG [place] [address] [address] Comment on above: PSA/PROSTSPECAG DIAG Start: 11-20-2023 End: 06-20-2024 MRI PROSTATE WO/W IVCON MRI PROSTATE WO/W IVCON Radiology Routine Prostate cancer (HCC) Expected: 11/20/2023, Expires: 06/20/2024 [facility] Work Phone: Comment on above: Expected: 11/20/2023, Expires: Start: 11-20-2023 End: 02-19-2024 Prostate specific Ag [Mass/volume] in Serum or Plasma PSA/PROSTSPECAG DIAG Lab Routine Prostate cancer (HCC) Expected: 11/20/2023, Expires: 02/19/2024 [facility] Work Phone: Comment on above: Expected: 11/20/2023, Expires: Start: 08-15-2023 Covid-19 Vaccine () Covid-19 Vaccine () [facility] Start: 07-31-2023 End: 07-31-2023 Patient encounter procedure 07/31/2023 9:15 AM EST Office Visit [facility] [address] [place] [address] Annette Block MD [address] [place] [address] Essential (primary) hypertension (CMS/HCC) (Primary Dx); Pure hypercholesterolemia (CMS/HCC); Prediabetes; 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 (CMS/HCC); Gastroesophageal reflux disease without esophagitis; Generalized anxiety disorder (CMS/HCC); Osteopenia of multiple sites; Primary insomnia; Primary osteoarthritis involving multiple joints; Factor V Leiden (CMS/HCC); Vitamin D deficiency; History of malignant neoplasm of prostate; Morbid obesity (CMS/HCC) [facility] Comment on above: Essential (primary) hypertension (CMS/HC C) (Primary Dx); Pure hypercholesterolemia (CMS/HCC); Prediabetes; 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 (CMS/HCC); Gastroesophageal reflux disease without esophagitis; Generalized anxiety disorder (CMS/HCC); Osteopenia of multiple sites; Primary insomnia; Primary osteoarthritis involving multiple joints; Factor V Leiden (CMS/HCC); Vitamin D deficiency; History of malignant neoplasm of prostate; Morbid obesity (CMS/HCC) Start: 07-21-2023 Urine screening for protein Diabetes: Urine Protein Screening [facility] Start: 06-24-2023 Advance Directive Discussion Advance Directive Discussion [facility] Start: 06-24-2023 Behavioral Health Screening Behavioral Health Screening [facility] Start: 04-28-2023 End: 10-27-2023 Prostate specific Ag [Mass/volume] in Serum or Plasma PSA/PROSTSPECAG DIAG Lab Routine Prostate cancer (HCC) Expected: 04/28/2023, Expires: 10/27/2023 [facility] Work Phone: Comment on above: Expected: 04/28/2023, Expires: Start: 10-19-2022 Hemoglobin A1c measurement Diabetes: Hemoglobin A1C [facility] Start: 10-19-2022 End: 12-19-2022 Prostate specific Ag [Mass/volume] in Serum or Plasma PSA/PROSTSPECAG DIAG Lab Routine Prostate cancer (HCC) Expected: 10/19/2022, Expires: 12/19/2022 [facility] Work Phone: Comment on above: Expected: 10/19/2022, Expires: Start: 06-24-2022 ADVANCE DIRECTIVE DISCUSSION ADVANCE DIRECTIVE DISCUSSION [facility] Start: 06-24-2022 DEPRESSION ASSESSMENT DEPRESSION ASSESSMENT [facility] Start: 04-10-2022 End: 03-18-2023 Prostate specific Ag [Mass/volume] in Serum or Plasma PSA/PROSTSPECAG DIAG Lab Routine Prostate cancer (HCC) Expected: 04/10/2022 (Approximate), Expires: 03/18/2023 [facility] Work Phone: Comment on above: Expected: 04/10/2022 (Approximate), Expi res: 03/18/2023 Start: 02-22-2022 Influenza vaccination INFLUENZA (#1) [facility] Start: 01-16-2022 Pneumococcal Vaccine: 65+ (2 - PCV) Pneumococcal Vaccine: 65+ (2 - PCV) [facility] Start: 01-16-2022 Pneumococcal Vaccine: 65+ (2 of 2 - PCV) Pneumococcal Vaccine: 65+ (2 of 2 - PCV) [facility] Start: 01-16-2022 Pneumococcal Vaccine: 65+ Years (2 - PCV) Pneumococcal Vaccine: 65+ Years (2 - PCV) [facility] Start: 06-24-2021 ADVANCE DIRECTIVE DISCUSSION ADVANCE DIRECTIVE DISCUSSION [facility] Start: 06-24-2021 DEPRESSION ASSESSMENT DEPRESSION ASSESSMENT [facility] Start: 06-10-2021 COVID-19 VACCINE (5 - Booster for Moderna series) COVID-19 VACCINE (5 - Booster for Moderna series) [facility] Start: 2021 Glaucoma screening Diabetes: Retinopathy Screening [facility] Start: 2020 PNEUMOCOCCAL: 65+ (1 - PCV) PNEUMOCOCCAL: 65+ (1 - PCV) [facility] Start: 2020 PNEUMOVAX AGE 65 AND OVER WITH 5YR LOOKBACK (#1) PNEUMOVAX AGE 65 AND OVER WITH 5YR LOOKBACK (#1) [facility] Start: 2015 RSV Vaccine (1 - 1-dose 60+ series) RSV Vaccine (1 - 1-dose 60+ series) [facility] Start: 2010 PROSTATE CANCER SCREENING DISCUSSION PROSTATE CANCER SCREENING DISCUSSION [facility] Start: 2005 SHINGRIX VACCINE (1 of 2) SHINGRIX VACCINE (1 of 2) [facility] Start: 01-23-2003 Diabetes Screening Diabetes Screening [facility] Start: 2000 COLOGUARD (FIT-DNA) COLOGUARD (FIT-DNA) [facility] Start: 2000 Colonoscopy COLONOSCOPY [facility] Start: 2000 COLORECTAL CANCER SCREENING COLORECTAL CANCER SCREENING [facility] Start: [address] COLONOGRAPHY [facility] Start: 2000 FECAL OCCULT BLOOD FECAL OCCULT BLOOD [facility] Start: 2000 Screening for malignant neoplasm of colon [facility] Start: 2000 SIGMOIDOSCOPY SIGMOIDOSCOPY [facility] Start: 1990 Lipid 1996 panel - Serum or Plasma Lipid Screening [facility] Start: 1990 Lipid panel Lipid Screening [facility] Start: 1990 LIPID SCREEN LIPID SCREEN [facility] Start: 1974 SHINGRIX VACCINE (1 of 2) SHINGRIX VACCINE (1 of 2) [facility] Start: 1974 Urine microalbumin profile DTAP,TDAP,TD (1 - Tdap) [facility] Start: 1973 HEPATITIS C SCREENING HEPATITIS C SCREENING [facility] Start: 1973 Hepatitis C screening Hepatitis C Screening [facility] Start: 1967 Adult depression screening assessment DEPRESSION SCREENING [facility] Start: 1961 PNEUMOCOCCAL: 65+ (1 - PCV) PNEUMOCOCCAL: 65+ (1 - PCV) [facility] Start: 1955 Screening for malignant neoplasm of colon [facility] End: 06-20-2024 MRI 3D POST PROCESSING MRI 3D POST PROCESSING Radiology Routine Prostate cancer (HCC) 1 Occurrences starting 05/22/2023 until 06/20/2024 [facility] Work Phone: Comment on above: 1 Occurrences starting 05/22/2023 until 06/20/2024 End: 11-21-2024 Prostate specific Ag [Mass/volume] in Serum or Plasma PROSTATE-SPECIFIC ANTIGEN DIAGNOSTIC Lab Routine Prostate cancer (HCC) Every 6 months for 3 Occurrences starting 11/22/2023 until 11/21/2024 [facility] Work Phone: Comment on above: Every 6 months for 3 Occurrences startin g 11/22/2023 until 11/21/2024 [facility] Immunizations Immunization Date Immunization Notes Care Provider Fa cili 05-26-2023 RSV, recombinant, pr otein subunit RSVpreF, adjuvant reconstitu, 120mcg/0.5mL, PF (Arexvy) Annette Block MD Work Phone: [facility] 04-14-2023 Influenza, Seasonal, Quadrivalent, Adjuvanted Annette Block MD Work Phone: [facility] 04-14-2023 SARS-COV-2 (COVID-19 ) vaccine, mRNA, spike protein, LNP, PF, well[place]-sucrose, 30 mcg/0.3 mL Annette Block MD Work Phone: [facility] 04-14-2022 Influenza, Seasonal, Quadrivalent, Adjuvanted Annette Block MD Work Phone: [facility] 06-04-2021 zoster vaccine recombinant Adrian Block MD Work Phone: [facility] 04-02-2021 Influenza, Seasonal, Quadrivalent, Adjuvanted Annette Block MD Work Phone: [facility] 04-02-2021 zoster vaccine recombinant Adrian Block MD Work Phone: [facility] 03-28-2021 SARS-CoV-2, Unspecified Robe rt Hill MD Work Phone: [facility] 01-16-2021 pneumococcal polysaccharide vaccine, 23 valent Annette Block MD Work Phone: [facility] 03-22-2020 influenza, injectabl e, quadrivalent, preservative free Annette Block MD Work Phone: [facility] 05-25-2019 influenza, injectabl e, quadrivalent, preservative free Annette Block MD Work Phone: [facility] 03-17-2018 influenza, injectabl e, quadrivalent, preservative free Annette Block MD Work Phone: [facility] 02-03-2018 tetanus toxoid, redu umang diphtheria toxoid, and acellular pertussis vaccine, adsorbed Annette Block MD Work Phone: [facility] 01-02-2017 zoster vaccine, live Annette Block MD Work Phone: [facility] Payers Date Payer Category Payer Medicare [id number] 2023 Unknown [id number] 2023 Medicare [id number] 2022 Unknown [id number] 2019 Unknown [id number] 2019 Unknown MMO MMO [employer] [id number] 2019-Present [phone] [address] [place] [address] O [id number] 2019 Unknown [id number] 2018 Self-pay 2018 Unknown [id number] 1955 Unknown [id number] 1955 Unknown [id number] 1955 Unknown [id number] [id number] 1955 Unknown [id number] [id number] 1955 Unknown [id number] [id number] 1955 Unknown [id number] [id number] 1955 Unknown [id number] 2.16.840.1.188519.3.579.2.593 1955 Unknown [id number] [id number] 1955 Unknown [id number] [id number] 1955 Unknown [id number] [id number] 1955 Unknown [id number] [id number] 1955 Unknown [id number] [id number] 1955 Unknown [id number] [id number] Unknown [id number] Unknown [id number] Social History Date Type Detail Facility Tobacco smoking status GAIS Tobacco smoking consumption unknown [facility] Work Phone: Start: 1955 Sex Assigned At Male [facility] Start: 10-17-2021 End: 04-12-2022 Exposure to SARS-CoV-2 (event) Not sure [facility] Start: 10-26-2022 End: 01-23-2023 Sex Assigned At [facility] Start: 04-07-2020 End: 11-20-2022 Tobacco smoking status NHIS Never smoked tobacco (finding) [facility] Start: 10-26-2022 End: 01-23-2023 History of Social function [facility] National Score (1-100), lower number is lower risk 62 [facility] Start: 09-03-2021 Gender identity Identifies as male gender (finding) [facility] Start: 11-20-2022 Tobacco use and exposure Smokeless tobacco non-user [facility] Start: 07-25-2023 End: 07-31-2023 Alcohol intake Current drinker of alcohol (finding) [facility] Start: 01-23-2023 Alcohol Comment Caffeine: 2 cups moo ly [facility] Start: 1955 Sex Assigned At [place] on file [place] [facility] [place] [facility] Medical Equipment Procedure Code Equipment Code Equipment Origin al Text Equipment Identifier Dates Arthroplasty, knee, total, minimally invasive ART SURF RT 10MM 10-12 GH FDA Start: 04-07-2020 Arthroplasty, knee, total, minimally invasive Orthopaedic cement, non-medicated [id number] FDA Start: 04-07-2020 Arthroplasty, knee, total, minimally invasive Uncoated knee femur prosthesis ()[id number] FDA Start: 04-07-2020 Arthroplasty, knee, total, minimally invasive Uncoated knee tibia prosthesis, metallic ()[id number] FDA Start: 04-07-2020 Arthroplasty, knee, total, minimally invasive Polyethylene patella prosthesis ()[id number] FDA Start: 04-07-2020 Arthroplasty, knee, total, minimally [...] FDA Start: 04-02-2018 Clinical Notes 10-27-2021 to 11-22-2023 Jevon Zambrano MD - 11/22/2023 1:45 PM Glenda Kiser RN - 11/22/2023 11:10 AM Christopher Ford RT(R) - 11/22/2023 11:10 AM Gurjit Gupta NP - 07/31/2023 9:15 AM EST Note Date & Type Note Facility 11-22-2023 History of Present illness Narrative REASON FOR VISIT: Follow up for Adenocarcinoma of Prostate HPI: 67 year old male presents for follow up for prostate cancer on active surveillance Last visit: 05/22/23 Generally doing well. Denies nausea, loss of appetite, unintentional weight loss, fever, fatigue. No bone pain. PSA on 11/15/23 was 1.22, stable with recent PSA results. Prostate MRI demonstrated a 1cm PIRADS 3 lesion, similar to MRI in 2021. No new lesions concerning for clinically significant prostate cancer. Prostate Biopsies: 04/12/22 - No malignancy. 3 cores of CHIRAG. 08/25/2020:Nina 3+3, 2/12 cores 05/28/2019: Nina 3+3=6, 1/12 cores PSA today: 11/15/23 - 1.22 10/29/2022 - 1.19 10/03/2022 - 1.15 03/2022 - 1.19 08/2021: 0.8 02/23/2021: 1.17 08/18/2020: 1.03 02/20/2020: 1.97 No results found for: PSA MRI 10/2021 - left mid anterior TZ PIRADS3 lesion. 29cc gland MRI 02/2020 - negative Some aspects were copied from previous note. All aspects have been reviewed and reflect my clinical decision making from today. IMAGING MRI Prostate 11/22/23 IMPRESSION: 1.0 cm left anterior transition PI-RADS 3 lesion, similar to 10/27/2021. No new lesion suspicious for clinically significant prostate cancer. No lymphadenopathy or suspicious osseous lesions. PATHOLOGY: FINAL DIAGNOSIS A. Prostate, left mid [...] and no grunting/flaring/retractions NEUROLOGIC: no obvious deficit : prostate smooth bilaterally, no nodules, ~30g PROBLEMS: 1. Prostate cancer (HCC) - ICD9: 185, ICD10: C61 (primary diagnosis) 2. Elevated PSA - ICD9: 790.93, ICD10: R97.20 IMPRESSION: This is a 67 year old male with history of GG1 prostate cancer on . PSA and MRI stable. Most recent prostate biopsy with CHIRAG. PLAN: 1) Re-check PSA in 6 months and in 12 months. Follow up in 1 year Jevon Zambrano MD documented in this encounter [facility] 11-22-2023 Note HNO ID: [id number] Author: JEVON ZAMBRANO MD Service: ? Author Type: Physician Type: Progress Notes Filed: 11/22/2023 16:10 Note Text: REASON FOR VISIT: Follow up for Adenocarcinoma of Prostate HPI: 67 year old male presents for follow up for prostate cancer on active surveillance Last visit: 05/22/23 Generally doing well. Denies nausea, loss of appetite, unintentional weight loss, fever, fatigue. No bone pain. PSA on 11/15/23 was 1.22, stable with recent PSA results. Prostate MRI demonstrated a 1cm PIRADS 3 lesion, similar to MRI in 2021. No new lesions concerning for clinically significant prostate cancer. Prostate Biopsies: 04/12/22 - No malignancy. 3 cores of CHIRAG. 08/25/2020:Nina 3+3, 2/12 cores 05/28/2019: Nina 3+3=6, 1/12 cores PSA today: 11/15/23 - 1.22 10/29/2022 - 1.19 10/03/2022 - 1.15 03/2022 - 1.19 08/2021: 0.8 02/23/2021: 1.17 08/18/2020: 1.03 02/20/2020: 1.97 No results found for: PSA MRI 10/2021 - left mid anterior TZ PIRADS3 lesion. 29cc gland MRI 02/2020 - negative Some aspects were copied from previous note. All aspects have been reviewed and reflect my clinical decision making from today. IMAGING MRI Prostate 11/22/23 IMPRESSION: 1.0 cm left anterior transition PI-RADS 3 lesion, similar to 10/27/2021. No new lesion suspicious for clinically significant prostate cancer. No lymphadenopathy or suspicious osseous lesions. PATHOLOGY: FINAL DIAGNOSIS A. Prostate, left mid [...] and no grunting/flaring/retractions NEUROLOGIC: no obvious deficit : prostate smooth bilaterally, no nodules, ~30g PROBLEMS: 1. Prostate cancer (HCC) - ICD9: 185, ICD10: C61 (primary diagnosis) 2. Elevated PSA - ICD9: 790.93, ICD10: R97.20 IMPRESSION: This is a 67 year old male with history of GG1 prostate cancer on . PSA and MRI stable. Most recent prostate biopsy with CHIRAG. PLAN: 1) Re-check PSA in 6 months and in 12 months. Follow up in 1 year Jevon Zambrano MD [facility] 11-22-2023 History of Present illness Narrative Radiology Service Progress Note DATE OF SERVICE: November 22, 2023 TIME: 11:22 AM PATIENT WEIGHT: 254LBS PATIENT IDENTITY VERIFICATION COMPLETED USING TWO (2) [...] peripheral IV was started in the Right antecubital site with a Angio cath: 22 gauge. and A Saline lock was inserted per protocol IV SITE APPEARANCE: Clean,Dry and Intact SIGNATURE: Glenda Basilio RN PATIENT NAME: Marco Antonio Benitez DATE: November 22, 2023 TIME: 11:22 AM Radiology Service Progress Note PATIENT NAME: Marco Antonio Benitez DATE OF SERVICE: November 22, 2023 TIME: 11:51 AM PATIENT IDENTITY VERIFICATION COMPLETED USING TWO (2) IDENTIFIERS: Name and Date of confirmed by patient verbally and Name and Date of confirmed by identification band. FALL SCREENING: Has the patient had 2 falls in the last year or 1 fall with injury or currently using an Ambulatory Assistive Device (Walker, Cane, Wheelchair, Crutches, etc.)? No PATIENT GENDER DATA: Male PATIENT RELEVANT IMPLANT DATA REVIEWED: Yes PATIENT PRESENTS WITH AN IMPLANTABLE OR ATTACHED GLASS VIAL FILLER: No RADIOLOGY DEPARTMENT: MR; Exam(s) Completed: Body: Prostate PERIPHERAL IV DATA: Site assessment: Clean,Dry and Intact, Site disposition Discontinued SIGNED BY: TOBIAS Joyner)Em November 22, 2023 11:51 AM documented in this encounter [facility] 11-22-2023 Note HNO ID: [id number] Author: CHRISTOPHER LACKEY RT (R) Service: Radiology Author Type: Technologist Type: Progress Notes Filed: 11/22/2023 11:52 Note Text: Radiology Service Progress Note PATIENT NAME: Marco Antonio Benitez DATE OF SERVICE: November 22, 2023 TIME: 11:51 AM PATIENT IDENTITY VERIFICATION COMPLETED USING TWO (2) IDENTIFIERS: Name and Date of confirmed by patient verbally and Name and Date of confirmed by identification band. FALL SCREENING: Has the patient had 2 falls in the last year or 1 fall with injury or currently using an Ambulatory Assistive Device (Walker, Cane, Wheelchair, Crutches, etc.)? No PATIENT GENDER DATA: Male PATIENT RELEVANT IMPLANT DATA REVIEWED: Yes PATIENT PRESENTS WITH AN IMPLANTABLE OR ATTACHED GLASS VIAL FILLER: No RADIOLOGY DEPARTMENT: MR; Exam(s) Completed: Body: Prostate PERIPHERAL IV DATA: Site assessment: Clean,Dry and Intact, Site disposition Discontinued SIGNED BY: TOBIAS Joyner)Em November 22, 2023 11:51 AM [facility] 11-22-2023 Note HNO ID: [id number] Author: GLENDA BASILIO RN Service: Nursing Author Type: Registered Nurse Type: Progress Notes Filed: 11/22/2023 11:23 Note Text: Radiology Service Progress Note DATE OF SERVICE: November 22, 2023 TIME: 11:22 AM PATIENT WEIGHT: 254LBS PATIENT IDENTITY VERIFICATION COMPLETED USING TWO (2) [...] peripheral IV was started in the Right antecubital site with a Angio cath: 22 gauge. and A Saline lock was inserted per protocol IV SITE APPEARANCE: Clean,Dry and Intact SIGNATURE: Glenda Basilio RN PATIENT NAME: Marco Antonio Benitez DATE: November 22, 2023 TIME: 11:22 AM [facility] 11-22-2023 Note Patient Outreach (UR OLMN) MARCO ANTONIO BENITEZ ([id number]) 1955 M Date Time Provider Department 11/22/23 JEVON ZAMBRANO During your visit today, we recorded the following information about you: Allergies As of Date: 11/22/2023 (No Known Allergies) Date Reviewed: 11/22/2023 Reviewed by: Jevon Zambrano MD - Fully Assessed Visit Diagnosis:Screening for genitourinary condition [Z13.89] Order(s):URINALYSIS, REFLEX MICROSCOPIC [OJH8793] Order #: [id number]. #:[id number] Prescriptions as of 11/25/2023 - atorvastatin (LIPITOR) 80 mg tablet Take 80 mg by mouth daily at bedtime. - metoprolol succinate 25 mg CSpX - OZEMPIC 0.25 mg or 0.5 mg (2 mg/3 mL) pen Inject 0.25 mg subcutaneously one time a week. - zolpidem (AMBIEN) 5 mg tablet Take 1 tablet by mouth as needed. - ALPRAZolam (XANAX) 0.25 mg tablet Take 1 tablet by mouth once daily. - cetirizine (ZYRTEC) 10 mg tablet Take 10 mg by mouth once daily. - calcium carbonate (CALTRATE) 600 mg calcium (1,500 mg) tab Take 1 tablet by mouth once daily. - omeprazole (PRILOSEC) 20 mg capsule Take 20 mg by mouth once daily. - diclofenac, EC, (VOLTAREN) 75 mg EC tablet Take 1 tablet by mouth twice daily as needed. - sildenafil (VIAGRA) 100 mg tablet Take 100 mg by mouth once daily. - polyethylene glycol 3350 (MIRALAX, GLYCOLAX) 17 gram/dose powder Take by mouth once daily. - docusate sodium (COLACE) 100 mg capsule Take 100 mg by mouth twice daily. Problem List As Of Date 11/22/2023 Noted Resolved Obesity, Class II, BMI 35-39.9 [E66.9] 05/22/2019 Hyperlipidemia [E78.5] History of DVT (deep vein thrombosis) [Z86.718] Factor V Leiden (HCC) [D68.51] Prostate cancer (HCC) [C61] 11/23/2021 Encounter Status:Closed by [place], PRODUSER on 11/25/23 [facility] 07-31-2023 History of Present illness Narrative Marco Antonio Benitez is a 68 y.o. male presents with chief complaint of 6 Month Follow-up HPI: Review lab drawn 07/30/2023. He continues to take Ozempic which was increased at last OV. He has seen ortho, Dr. Cardenas for right knee pain (hx TKA). He had x-rays 07/15/2023. Patient reports he may need a left knee replacement. He follows with [facility] Urology every 6 months and they [...] - Comprehensive metabolic panel 2. Pure hypercholesterolemia (CMS/HCC) Continue Atorvastatin, eat a healthy diet, and exercise regularly. - Lipid panel; Future - Lipid panel 3. Prediabetes Continue to minimize added sugars, carbohydrates and control overall calories. Encouraged regular exercise will help to increase your sensitivity to insulin and can help with weight loss or maintenance to prevent progression to diabetes. 4. 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 (CMS/HCC) Doing well. Denies any anginal symptoms. Continue aggressive risk factor modification. Continue current medications. Call if any problems. 5. Gastroesophageal reflux disease without esophagitis Denies breakthrough symptoms with taking Omeprazole. 6. Generalized anxiety disorder (CMS/HCC) Stable. He is not taking Alprazolam regularly. 7. Osteopenia of multiple sites Last DEXA 06/2018 showed osteopenia. 8. Primary insomnia Uses Ambien as needed. Continue current regimen. 9. Primary osteoarthritis involving multiple joints Uses Tylenol as needed for pain. 10. Factor V Leiden (CMS/HCC) Stable. Continue to monitor. 11. Vitamin D deficiency He is taking supplement. Continue to monitor. - Vitamin D 25 hydroxy; Future - Vitamin D 25 hydroxy 12. History of malignant neoplasm of prostate He is following with Urology and getting PSA checked regularly. 13. Morbid obesity (CMS/[facility]) Encouraged to eat a healthy diet and exercise regularly. 14. BMI 32.0-32.9,adult As above. Dr. Block was present in the office at the time of visit today and is supervising patient care. I am following Dr. Block's established plan of care for the above issues. documented in this encounter [facility] 05-30-2023 Note [facility] Cardiology Clinic Note Chief Complaint: Patient here for 1 year follow up CAD and dyslipidemia. Had routine labs in December 2022. Doing very well, as he denies chest pain, SOB, and palpitations. HPI: Marco Antonio Benitez is a 67 y.o. male With a [...] Coronary atherosclerosis I25.10: Atherosclerotic heart disease of picayune coronary artery without angina pectoris 2. Abnormal findings diagnostic imaging heart+coronary circulat - Abnormal calcium score 99th percentile for age and gender and race R93.1: Abnormal findings on diagnostic imaging of heart and coronary circulation 3. Factor V Leiden mutation D68.51: Activated protein C resistance FACTOR V LEIDEN: CARE INSTRUCTIONS we will refer to [facility] hematology given history of 2 venous thromboembolic events; especially with his factor V Leiden deficiency; did not recommend lifelong anticoagulation 4. Dysli (more content not included)... [facility] 05-22-2023 Note HNO ID: [id number] Author: Jevon Zambrano MD Service: ? Author Type: Physician Type: Progress Notes Filed: 05/22/2023 4:58 PM Note Text: VIRTUAL VISIT PROGRESS NOTE This is a virtual visit using [employer] Video Visit. It required patient-provider interaction for the medical decision making as documented below. I have communicated my name and active licensure. The patient's identity and physical location were verified at the time of this visit. Either the patient or their legal inside account representative has been informed of the risks [...] of CHIRAG. 08/25/2020:Nina 3+3, 2/ cores 05/28/2019: [place] 3+3=6, 1/ cores PSA today: 10/29/2022 - 1.19 10/03/2022 [...] no obvious deficit PROBLEMS: 1. Prostate cancer ([facility]) - ICD9: 185, ICD10: C61 IMPRESSION: This is a 67 year old male with history of GG1 prostate cancer on . PSA overall stable. Most recent prostate biopsy with CHIRAG. PLAN: 1) Repeat PSA and MRI in 6 months with follow up after Jevon Zambrano MD [facility] 05-22-2023 History of Present illness Narrative VIRTUAL VISIT PROGRESS NOTE This is a virtual visit using [employer] Video Visit. It required patient-provider interaction for the medical decision making as documented below. I have communicated my name and active licensure. The patient's identity and physical location were verified at the time of this visit. Either the patient or their legal inside account representative has been informed of the risks [...] of CHIRAG. 08/25/2020:Nina 3+3, 2/ cores 05/28/2019: Nina 3+3=6, 1/12 [...] no obvious deficit PROBLEMS: 1. Prostate cancer ([facility]) - ICD9: 185, ICD10: C61 IMPRESSION: This is a 67 year old male with history of GG1 prostate cancer on . PSA overall stable. Most recent prostate biopsy with CHIRAG. PLAN: 1) Repeat PSA and MRI in 6 months with follow up after Jevon Zambrano MD documented in this encounter [facility] 03-05-2023 Evaluation note Encounter Date Diagnosis [...] History of lumbar fusion (ICD-10 - Z98.1) [employer] Other 05-05-2023 History of Present illness Narrative* Mark Anthony Real MD - 10/26/2022 10:30 AM EDT REASON FOR VISIT: Follow up for Adenocarcinoma of Prostate I have communicated my name and active licensure. The patient's identity and physical location wereverified at the time of this visit. Either the patient or their legal inside account representative has been informed of the risks and benefits of -- and alternatives to -- treatment through a remote evaluation andconsents to proceed with the evaluation remotely. HPI: 67 year old male with prostate cancer on . Prostate Biopsies: 04/12/22 - No malignancy. 3 cores of CHIRAG. 08/25/2020:[place] 3+3, 2/ cores 05/28/2019: Nina 3+3=6, 1/12 [...] 1 tablet by mouth once daily. multivit-mins/iron/folic/lycop (MV,CA,ITK-MOBF-WZ-LYCOPENE ORAL) Take 1 tablet by mouth once [...] Making Level: 3 - Low Electronically Signed: Mark Anthony Real MD, MSN October 25, 2022 5:28 PM documented in this encounterProm[facility] Miscellaneous Notes* Telephone Encounter - Mark Anthony Real MD - 04/20/2022 2:37 PM EDT I spoke with And Mrs. Benitez. Biopsy results are favorable. No malignancy noted. 3 cores of CHIRAG. We will continue with and recheck PSA in 6 months. Mark Anthony Real MD Department of Urology [employer] Laparoscopy Fellow documented in this encounterProm[facility]10[facility] History of Present illness Narrative* Kim Saeed RN - 04/12/2022 3:19 PM EDT UNIVERSAL [...] of Care Visit completed when applicable. Kim Saeed RN T documented in this encounterPromedica [facility]10-[facility] Nurse Note* Kim Saeed RN - 04/12/2022 2:23 PM EDT Actual procedure/procedure scheduled: Performing provider/scheduled provider: Moriah Patient was roomed in: Q9- 15 Patient arrived in the room at: 1420 Patient ready for procedure: 1435 The procedure started at ( Time Only): 1505 The procedure ended at: 1516 Was the procedure delayed: No The patient left the procedure room at: 1545 Kim Saeed RN PRE PROCEDURE ASSESSMENT- Transperineal fusion Bx [...] Patient ID with two(2)identifiers verified by: Kim Saeed RN Pre-Procedure Antibiotics: Keflex 500 mg orally given now @ 1426 , by Kim Saeed RN Anesthetic given: Administered by MD - see Procedure Physician Note. UNIVERSAL PROTOCOL / SAFETY CHECKLIST Procedure to be performed: Transperineal Fusion Biopsy with nitrous Sign in Communication: Completed Time Out: Team Confirms the Correct Patient, Correct Procedure, Correct Site and Site Marking, Correct Position (if applicable) Sign Out Discussion: Completed Kim Saeed RN POST PROCEDURE NURSE ASSESSMENT Present along with physician during procedure exam. Kim Saeed RN Instruction sheet given and reviewed and patient verbalizes understanding: yes Post-Procedure Vital Signs: BP: 138/86 Pulse: 69 Current pain intensity is 0 on a 0-10 pain scale. Post-Procedure Medications: None Kim Saeed RN PATIENT EDUCATION THE FOLLOWING WAS EVALUATED Motivation To Learn: Interested Family/Significant Other Support: Unable to assess - Family not present Cognitive Ability: Alert/Oriented Patient Learns Best By: Written instruction - handouts Verbal instruction The Following Influencing Factors Were Barriers To This Education Session: None The Following Physical Limitations Were Barriers To This Education Session: None Instruction Provided To:Patient Funeral Home Assistant Present: not applicable Discipline: Nursing Learning Topic: Survival Skills: Complication Prevention Symptom Management Patient Evaluation: Verbalizes understanding: Yes Supplemental Material Given: Written Material Instructed By Kim Saeed RN In Department Urology . documented in this encounterPromedica [facility]10-[facility] Procedure note* Hugo Garcia MD - 04/12/2022 1:40 PM EDT MR-US Fusion with Guided US for Transperineal Prostate Biopsy Report DIAGNOSIS: Low risk director client HPI: GG1 director client on . 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 MRI [...] reconstruction of the prostate gland using the Dyyno system. Trans-rectal ultrasound with a guide was [...] MD May 14, 2022, documented in this encounterPromedica [facility]09-15-20[facility] Evaluation note* Encounter Date Diagnosis Assessment [...] History of lumbar fusion (ICD-10 - Z98.1) [employer] Other 08-31-2022 Miscellaneous Notes* Telephone Encounter - Mark Anthony Real MD - 02/21/2022 6:59 PM EDT Spoke with pt and his over the phone. We cannot accomodate 04/26 for TP biopsy. Offered 03/08, which does not work for the patient. We will move the date to 04/12/22. Mark Anthony Real MD Department of Urology [employer] and Laparoscopy Fellow documented in this encounterPromedica F[facility]08-25-2022 Evaluation note* Encounter Date Diagnosis Assessment [...] follow-up with me on an as-needed basis. [employer] Other 06-02-2022 History of Present illness Narrative* Hugo Garcia MD - 11/23/2021 11:45 AM EDT VIRTUAL VISIT PROGRESS NOTE This is a virtual visit using [employer] video visit. It required patient-provider interaction for the medical decision making as documented below. REASON FOR VISIT: Follow up for Adenocarcinoma of Prostate HPI: 66 year old male with prostate cancer on active surveillance for Nina 3+3 disease. His lastMRI October 2021 showed a PIRADS 3 lesion. Last PSA in August 2021 was 0.8. Prostate Biopsies: 08/25/2020:[place] 3+3, 2/12 cores 05/28/2019: Nina 3+3=6, 1/12 [...] 1 tablet by mouth once daily. multivit-mins/iron/folic/lycop (MV,CA,EEL-BGWB-BB-LYCOPENE ORAL) Take 1 tablet by mouth once [...] August 2021 was 0.8. 1) Prostate cancer, Austin 3+3 disease 2) MRI 0.8 CM LEFT [...] Dr. Hugo Garcia MD November 27, 2021, Huog Garcia MD I spent more than 30 minutes [id number] with the patient and over half the time was devoted to counseling and/or coordination of care. documented in this encounterPromedica F[facility]05-12-2022 NotePROCEDURE: XR ANKLE LT MIN 3 [...] Electronically authenticated by: KEN REGAN Date: 2021-11-02 11:06[facility]05-12-2022 NotePROCEDURE: XR ANKLE LT MIN 3 [...] Electronically authenticated by: KEN REGAN Date: 2021-11-02 11:06[facility]05-12-2022 NotePROCEDURE: XR FOOT RT MIN 3 VIEWS [...] Electronically authenticated by: KEN REGAN Date: 2021-11-02 10:41[facility]05-06-2022 History of Present illness Narrative* Annette Gar [...] Annette Gar RN PATIENT NAME: Marco Antonio Benitez DATE: October 27, 2021 TIME: 8:58 AM [facility] Diagnosis Malignant neoplasm of prostate (HCC) Malignant neoplasm of prostate documented in this encounter [facility] note* Diagnosis Prostate cancer (HCC) Malignant neoplasm of prostate documented in this encounter [facility] noteNo assessment information availableSamaritan [facility] Work Phone: Evaluation note* Diagnosis Prostate cancer (HCC)- Primary Malignant neoplasm of prostate documented in this encounter [facility] note* Diagnosis Prostate cancer (HCC)- Primary Malignant neoplasm of prostate documented in this encounter [facility] note* Diagnosis Elevated PSA- Primary Elevated prostate specific antigen (PSA) documented in this encounter [facility] note* Diagnosis Prostate cancer (HCC)- Primary Malignant neoplasm of prostate documented in this encounter [facility] note* Diagnosis Prostate cancer (HCC)- Primary Malignant neoplasm of prostate documented in this encounter [facility] note* Diagnosis Essential (primary) hypertension (CMS/HCC)- Primary Unspecified essential hypertension Pure hypercholesterolemia (CMS/HCC) Pure hypercholesterolemia Prediabetes Other abnormal glucose 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 (CMS/HCC) Gastroesophageal reflux [...] obesity BMI 32.0-32.9,adult documented in this encounter [facility] note* Diagnosis Prostate cancer (HCC)- Primary Malignant neoplasm of prostate Elevated PSA Elevated prostate specific antigen (PSA) documented in this encounter [facility] note* Diagnosis Prostate cancer (HCC) Malignant neoplasm of prostate [facility] [place]* Diagnosis Screening for genitourinary condition Screening for other and unspecified genitourinary condition documented in this encounter [facility] general Narrative - Reported* Type Description Date Medical History Blood clots Medical History factor V Surgical History hammertoe repair Surgical History vasectomy Surgical History hammer toe Surgical History vasectomy 1997 Surgical History colonoscopy 2009 Surgical History fusion, lisfranc fracture repai r Dr. Quarles 05/2016 Surgical History EGD/Colonoscopy (normal- logistics intern al hemorrhoids) 04/15/17 Surgical History PLIF (posterior lumbar interbod y fusion) 04/02/18 Surgical History Right Knee Replacement 2019 Hospitalization History see above [employer] Other Summary Purpose Family History No Family History Records Found Relationship Condition Age at Onset Recorded Date/T rosa father Sick sinus syndrome Unknown Not Specified Malignant neoplasm of colon Unknown brother Malignant neoplasm of throat Unknown brother Heart disease Unknown brother History of heart surgery Unknown Heart disease Unknown sister Fibromyalgia Unknown Hypertension Unknown Advance Directives No Advanced Directives Records Found Advance Directive Response Recorded Date/ Time Advance Directives Yes April 07, 2018 2:27pm Reason for Referral Specialty Diagnoses / Procedures Referred By Contac t Referred To Contact MR IMAGING Diagnoses Malignant neoplasm of prostate (HCC) Procedures MRI PROSTATE WO/W IVCON MRI PELVIS W/WO CONTRAST Navin Redman MD [address] [id number] Mr Imaging Referral ID Status Reason Start Date Expiration Date V isits Requested Visits Authorized [id number] Closed Auto-Generate d Referral 10/02/2021 11/06/2021 1 1 Specialty Diagnoses / Procedures Referred By Contac t Referred To Contact MR IMAGING Diagnoses Prostate cancer (HCC) Procedures MRI 3D POST PROCESSING 3D RENDERING W/INTERP&POSTPROC DIFF WORK STATION Jevon Zambrano MD [address] [phone] Mr Imaging [place] [address] Referral ID Status Reason Start Date Expiration Date Visits Requested Visits Authorized [id number] Pending Review Auto-Generat ed Referral 3 06/20/2024 1 1 Specialty Diagnoses / Procedures Referred By Contac t Referred To Contact MR IMAGING Diagnoses Prostate cancer (HCC) Procedures MRI PROSTATE WO/W IVCON MRI PELVIS W/O & W/CONTRAST MATERIAL Jevon Zambrano MD [address] [place] [address] Mr Imaging [id number] Referral ID Status Reason Start Date Expiration Date Visits Requested Visits Authorized [id number] Pending Review Auto-Generat ed Referral 11/20/2023 06/20/2024 1 1 Referral ID Status Reason Start Date Expiration Date V isits Requested Visits Authorized [id number] Closed Auto-Generate d Referral 05/22/2023 06/20/2024 1 1 Referral ID Status Reason Start Date Expiration Date V isits Requested Visits Authorized [id number] Closed Auto-Generate d Referral 11/20/2023 06/20/2024 1 1 Chief Complaint [...] section and content) DATE CREATED AUTHOR 12/18/2017 [facility] DATE CREATED AUTHOR AUTHOR'S ORGANIZ ATION 12/18/2017 [facility] DATE CREATED AUTHOR AUTHOR'S ORGANIZ ATION 06/14/2018 [facility] DATE CREATED AUTHOR AUTHOR'S ORGANIZ ATION 10/26/2020 [facility] DATE CREATED AUTHOR AUTHOR'S ORGANIZ ATION 10/13/2021 [facility] DATE CREATED AUTHOR AUTHOR'S ORGANIZ ATION 10/08/2022 [facility] DATE CREATED AUTHOR AUTHOR'S ORGANIZ ATION 03/12/2023 [facility] DATE CREATED AUTHOR AUTHOR'S ORGANIZ ATION 06/01/2023 [facility] DATE CREATED AUTHOR AUTHOR'S ORGANIZ ATION 08/01/2023 [facility] EPIC DATE CREATED AUTHOR AUTHOR'S ORGANIZ ATION 11/26/2023 [facility] Source Comments (unrecognize d section and content) In the event this informatio n is protected by the Federal Confidentiality of Alcohol and Drug Abuse Patient Records regulations: The Federal rules restrict any use of the information to criminally investigate or prosecute any alcohol or drug abuse patient.[facility] HospitalIn the event this information is protected by the Federal Confidentiality of Alcohol and Drug Abuse Patient Records regulations: The Federal rules restrict any use of the information to criminally investigate or prosecute any alcohol or drug abuse patient.[facility] HospitalIn the event this information is protected by the Federal Confidentiality of Alcohol and Drug Abuse Patient Records regulations: The Federal rules restrict any use of the information to criminally investigate or prosecute any alcohol or drug abuse patient.[facility] HospitalIn the event this information is protected by the Federal Confidentiality of Alcohol and Drug Abuse Patient Records regulations: The Federal rules restrict any use of the information to criminally investigate or prosecute any alcohol or drug abuse patient.[facility] HospitalIn the event this information is protected by the Federal Confidentiality of Alcohol and Drug Abuse Patient Records regulations: The Federal rules restrict any use of the information to criminally investigate or prosecute any alcohol or drug abuse patient.[facility] HospitalIn the event this information is protected by the Federal Confidentiality of Alcohol and Drug Abuse Patient Records regulations: The Federal rules restrict any use of the information to criminally investigate or prosecute any alcohol or drug abuse patient.[facility] HospitalIn the event this information is protected by the Federal Confidentiality of Alcohol and Drug Abuse Patient Records regulations: The Federal rules restrict any use of the information to criminally investigate or prosecute any alcohol or drug abuse patient.[facility] HospitalIn the event this information is protected by the Federal Confidentiality of Alcohol and Drug Abuse Patient Records regulations: The Federal rules restrict any use of the information to criminally investigate or prosecute any alcohol or drug abuse patient.[facility] HospitalIn the event this information is protected by the Federal Confidentiality of Alcohol and Drug Abuse Patient Records regulations: The Federal rules restrict any use of the information to criminally investigate or prosecute any alcohol or drug abuse patient.[facility] HospitalIn the event this information is protected by the Federal Confidentiality of Alcohol and Drug Abuse Patient Records regulations: The Federal rules restrict any use of the information to criminally investigate or prosecute any alcohol or drug abuse patient.[facility] HospitalIn the event this information is protected by the Federal Confidentiality of Alcohol and Drug Abuse Patient Records regulations: The Federal rules restrict any use of the information to criminally investigate or prosecute any alcohol or drug abuse patient.[facility] HospitalIn the event this information is protected by the Federal Confidentiality of Alcohol and Drug Abuse Patient Records regulations: The Federal rules restrict any use of the information to criminally investigate or prosecute any alcohol or drug abuse patient.[facility] Reason for Visit (unrecogniz ed section and content) Reason Comments Radiology MRI Specialty Diagnoses / Procedures Referred By Contac t Referred To Contact MR IMAGING Diagnoses Malignant neoplasm of prostate (HCC) Procedures MRI PROSTATE WO/W IVCON MRI PELVIS W/WO CONTRAST Navin Redman MD [facility] [place] [address] Mr Imaging Referral ID Status Reason Start Date Expiration Date V isits Requested Visits Authorized [id number] Closed Auto-Generate d Referral 10/02/2021 11/06/2021 1 1 Reason Comments Follow Up Reason Comments Appointment Reason Comments Results Reason Comments Prostate Biopsy Transperineal biopsy with nitrous Reason Comments Follow Up Reason Comments 6 Month Follow-up Reason Comments Radiology MRI Specialty Diagnoses / Procedures Referred By Contac t Referred To Contact MR IMAGING Diagnoses Prostate cancer (HCC) Procedures MRI PROSTATE WO/W IVCON MRI PELVIS W/O & W/CONTRAST MATERIAL Jevon Zambrano MD [facility] [place] [address] Mr Imaging [place] [address] Referral ID Status Reason Start Date Expiration Date V isits Requested Visits Authorized [id number] Closed Auto-Generate d Referral 11/20/2023 06/20/2024 1 1 Care Teams (unrecognized sec tion and content) Stoker Erector Relationship Specialty Start Date End Date Annette Block MD [address] [place] [address] PCP - General Internal Medicine 02/21/18 Stoker Erector Relationship Specialty Start Date End Date Annette Block MD [address] [place] [address] PCP - General Internal Medicine 02/21/18 Stoker Erector Relationship Specialty Start Date End Date Annette Block MD [address] [place] [address] PCP - General Internal Medicine 02/21/18 Team Status: Inactive Member Role Status Yair Block MD Primary Care Provider Active Annette Callaway II, MD Attending Provider Active Team Status: Active Member Role Status Dates Annette Block MD Primary Care Provider Active Team Status: Inactive Member Role Status Dates Annette Block MD Primary Care Provider Active Preston Tejada MD Attending Provider Active Stoker Erector Relationship Specialty Start Date End Date Annette Block MD [address] [place] [address] PCP - General Internal Medicine 02/21/18 Stoker Erector Relationship Specialty Start Date End Date Annette Block MD [address] [place] [address] PCP - General Internal Medicine 02/21/18 Stoker Erector Relationship Specialty Start Date End Date Annette Block MD [address] [place] [address] PCP - General Internal Medicine 02/21/18 Stoker Erector Relationship Specialty Start Date End Date Annette Block MD [address] [place] [address] PCP - General Internal Medicine 02/21/18 Stoker Erector Relationship Specialty Start Date End Date Annette Block MD [address] [place] [phone] PCP - General Internal Medicine 11/16/22 Mark Anthony Drake MD [address] [place] [address] Urology 01/15/23 Stoker Erector Relationship Specialty Start Date End Date Annette Block MD [address] [place] [phone] PCP - General Internal Medicine 11/16/22 Mark Anthony Drake MD [address] [place] [address] Urology 01/15/23 Stoker Erector Relationship Specialty Start Date End Date Annette Block MD [address] [place] [address] PCP - General Internal Medicine 02/21/18 Stoker Erector Relationship Specialty Start Date End Date Annette Block MD [address] [place] [address] PCP - General Internal Medicine 02/21/18 Stoker Erector Relationship Specialty Start Date End Date Annette Block MD [address] [place] [address] PCP - General Internal Medicine 02/21/18 Stoker Erector Relationship Specialty Start Date End Date Annette Block MD [address] [place] [address] PCP - General Internal Medicine 02/21/18 Goals (unrecognized section and content) Goals may [...] BE BASED ON THE PRIMARY CLINICAL RECORDS. [facility]. provides no warranty or guarantee of the accuracy or completeness of information in this document.
[2024-02-11 07:50] LABS: Basophils Percent Auto 0.6 % (0.2-2.0); Eosinophils Absolute Auto 0.6 10^3/uL (0.0-0.7); Eosinophils Percent Auto 9.2 % (0.9-7.0); Hematocrit 40.3 % (42.0-54.0); Hemoglobin 13.4 g/dL (14.0-18.0); Immature Granulocytes Abs Auto 0.02 10^3/uL (0.00-0.03); Immature Granulocytes Pct Auto 0.3 % (0.0-0.5); Lymphocytes Absolute Auto 1.3 10^3/uL (1.2-3.8); Lymphocytes Percent Auto 20.5 % (20.5-60.0); Mean Corpuscular HGB Conc 33.3 g/dL (29.9-35.2); Mean Corpuscular Hemoglobin 31.7 pg (25.9-34.0); Mean Corpuscular Volume 95.3 fL (80.0-94.0); Mean Platelet Volume 8.4 fL (9.5-13.5); Monocytes Absolute Auto 0.9 10^3/uL (0.3-0.8); Monocytes Percent Auto 14.3 % (1.7-12.0); Neutrophils Absolute Auto 3.4 10^3/uL (1.4-6.5); Neutrophils Percent Auto 55.1 % (43.0-75.0); Platelet Count 228 10^3/uL (150-450); Red Blood Count 4.23 10^6/uL (4.70-6.10); Red Cell Distribution Width 12.6 % (11.0-15.0); White Blood Count 6.2 10^3/uL (4.0-11.0)
[2024-02-11 08:42] LABS: Alanine Aminotransferase 33 U/L (16-63); Albumin Globulin Ratio 1.2; Albumin Level 3.5 g/dL (3.4-5.0); Alkaline Phosphatase 83 U/L (46-116); Anion Gap 11.3; Aspartate Amino Transferase 26 U/L (15-37); BUN Creatinine Ratio 15.8; Bilirubin Total 0.5 mg/dL (0.2-1.0); Calcium 8.8 mg/dL (8.5-10.1); Carbon Dioxide 30.1 mmol/L (21.0-32.0); Chloride 105 mmol/L (98-107); Chol HDL Ratio 2.6; Cholesterol 126 mg/dL (<=200); Estimated GFR (African America >60 (>=60); Estimated GFR (Non-African Ame >60 (>=60); Globulin 2.8 g/dL; Glucose 114 mg/dL (74-106); HDL Cholesterol 48 mg/dL (40-60); LDL Cholesterol Calculated 65.4 mg/dL; Potassium 4.4 mmol/L (3.5-5.1); Sodium 142 mmol/L (136-145); Total Protein 6.3 g/dL (6.4-8.2); Triglycerides 63 mg/dL (<=150); VLDL CHOLESTEROL 12.6 mg/dL
== END 2024-02-11 07:28 | disposition home or self-care (01) ==
PROVIDERS: PCP Internal Medicine; Visit Provider Nurse Practitioner Family
DX: E78.00 Pure hypercholesterolemia, unspecified (principal); I10 Essential (primary) hypertension; E55.9 Vitamin D deficiency, unspecified
CPT/HCPCS: 36415; 80053; 80061; 82306; 85025

== ENCOUNTER 2024-05-23 07:28 | Outpatient (OUT) | payer MEDICARE, OTHER, SELFPAY ==
--- OUTSIDE RECORDS SUMMARY | 2024-05-23 07:31 | XMS_ITS | CCD ---
Author Organization [facility] Care Team Providers Care Snap Shearer Name Role Phone ANNETTE BLOCK Unavailable Unavailable ANNETTE BLOCK Unavailable Unavailable Horn, Erin Unavailable Unavailable Rei, Erin Unavailable Unavailable GEORGE DOS SANTOS Unavailable Unavailable ANNETTE BLOCK Primary Care Unavailable ANNETTE BLOCK Referring Unavailable BERRY FISHER Admitting Unavailable BERRY FISHER Attending Unavailable Annette Block MD Primary Care Provider [phone] Annette Callaawy II Unavailable [phone] Annette Block MD Primary Care Provider [phone] MD Annette Block Primary Care Provider [phone] MD Annette Callaway II Attending Provider MD Preston Tejada Attending Provider Preston Tejada Unavailable Annette Block MD Primary Care Provider DR ANNETTE BLOCK Admitting Unavailable UMAIR, DR BRYANT Attending Unavailable UMAIR, DR BRYANT Primary Care Unavailable UMAIR, DR BRYANT Consulting Unavailable UMAIR, DR BRYANT Admitting Unavailable HILL, DR BRYANT Attending Unavailable UMAIR, DR BRYANT [...] Unavailable UMAIR, DR BRYANT Primary Care Unavailable [place], DR KEN Dunlap Consulting Unavailable JACE, RON Consulting Unavailable RON MCCORMICK Admitting Unavailable RON MCCORMICK Attending Unavailable UMAIR, DR BRAYNT Primary Care Unavailable SAL, DR CHAPIS Campbell [...] REQUEST, DR CASTILLO LISTED Consulting Unavaila ble BERRY FISHER Attending Unavailable Annette Block MD Primary Care Provider Annette Block MD Primary Care Provider [phone] ANNETTE BLOCK Primary Care Unavailable JEVON ZAMBRANO Referring Unavailab le UMAIR, ANNETTE GUZMAN Primary Care Unavailable JEVON ZAMBRANO Referring Unavailab le JEVON ZAMBRANO Attending Unavailab le JEVON ZAMBRANO Attending Unavailab le UMAIR, ANNETTE GUZMAN Primary Care Unavailable MD Annette Block Primary Care Provider [phone] MD Preston Tejada Attending Provider Preston Tejada Attending Unavailable Preston Tejada Admitting Unavailable Umair, Annette Primary Care Unavailable Jevon Zambrano MD Unavailable Ron Hartley OD Unavailable JR. CARDENAS GEORGE C Attending Unavaila briana CARDENAS JR., GEORGE C Referring Unavaila ANNETTE Munoz Attending Unavailable ANNETTE BLOCK Referring Unavailable EVETTE HOGUE Attending Unavailable ANNETTE BLOCK Referring Unavailable EVETTE HOGUE Referring Unavailable JR. CARDENAS GEORGE C Attending Unavaila ANNETTE Munoz Referring Unavailable JR. CARDENAS GEORGE C Referring Unavaila briana CARDENAS JR., GEORGE C Referring Unavaila briana CARDENAS JR., GEORGE C Attending Unavaila briana Medications Current Medications Medication Drug Class(es) Dates Sig (Normalized) Sig (Original) acetaminophen 500 mg oral tablet (12 sources) Start: 03-26-2018 take 2 tablets by mouth twice daily Acetaminophen (Acetaminophen Extra Strength) 500 mg Tablet Active 1000 MG PO Twice daily March 26, 2018 12:00am acetaminophen (T ylenol Extra Strength) 500 MG tablet every 6 (six) hours. Active ALPRAZolam 0.25 mg oral tablet (20 sources) Benzodiazepine Start: 07-23-2019 take 1 tablet [...] times a day as needed for anxiety. Active Comment on above: Take 1 tablet by radha th once daily. amoxicillin 500 mg oral capsule (2 sources) Penicillin-class Antibacterial Start: 3 amoxicillin (Amoxil) 500 MG capsule Indications: Prophylactic antibiotic TAKE 4 CAPSULES BY MOUTH 45 MINUTES TO 1 HOUR PRIOR TO DENTAL PROCEDURE 4 capsule 3 11/22/2022 Active ascorbic acid 250 mg chewable tablet (6 sources) Vitamin C Start: 0 take 1 tablet by mouth once daily Ascorbic Acid (Vitamin C) (Vitamin C) 250 mg Tablet,Chewable Active 250 MG PO Daily March 24, 2020 12:00am Vitamin C Active aspirin 81 mg delayed release oral tablet (11 sources) Platelet Aggregation Inhibitor, Nonsteroidal Anti-inflammatory Drug take 1 tablet by mouth in the morning aspirin 81 MG EC tablet Take 81 mg by mouth in the morning. Active Aspirin 81 Activ e atorvastatin 80 mg oral tablet (14 sources) HMG-CoA Reductase Inhibitor take 1 tablet by mouth at bedtime atorvastatin (Lipitor) 80 MG tablet Take 80 mg by mouth at bedtime. Active calcium carbonate 1500 mg oral tablet (18 sources) Start: 8 Calcium Carbonate (Calcium 600) 600 mg calcium (1,500 mg) Tablet Active 1200 MG PO Daily March 26, 2018 12:00am Caltrate 600 Act prisca Comment on above: Take 1 tablet by radha th once daily. cetirizine hydrochloride 10 mg oral tablet (20 sources) Histamine-1 Receptor Antagonist Start: 7 take 1 tablet by mouth once daily Cetirizine (Zyrtec) 10 mg Tablet Active 10 MG PO Daily April 15, 2017 12:00am Zyrtec 1 tab Ora l Active Comment on above: Take 10 mg by mouth once daily. cholecalciferol 0.05 mg oral tablet (12 sources) Vitamin D Start: 03-24-20 20 take 1 tablet by mouth once daily Cholecalciferol (Vitamin D3) (Vitamin D3) 50 mcg (2,000 unit) Tablet Active 2000 UNIT PO Daily March 24, 2020 12:00am take 1 capsule by [facility] once in the morning Cholecalciferol (Vitamin D) 50 MCG (2000 UT) capsule Take 1 capsule by mouth in the morning. Active chondroitin sulfates 200 mg / glucosamine hydrochloride 250 mg oral tablet (3 sources) Start: 03-24-2020 take 1 tablet by mouth once daily Glucosamine-Chondroitin (Osteo Bi-Flex) 250-200 mg Tablet Active 1 TAB PO Daily March 24, 2020 12:00am diclofenac sodium 75 mg delayed release oral tablet (20 sources) Nonsteroidal Anti-inflammator y Drug Start: 12-19-2023 take 1 tablet by mouth twice daily at mealtime diclofenac (Voltaren) 75 MG EC tablet Indications: Primary generalized (osteo)arthritis TAKE 1 TABLET BY MOUTH WITH FOOD OR MILK TWICE DAILY 180 tablet 3 12/19/2023 Active Start: 04-16-2019 End: 04-09-2020 take 75 mg by mouth twice daily Diclofenac Sodium Discontinued 75 MG PO Twice daily March 24, 2020 12:00am April 09, 2020 11:07am Diclofenac Activ e Comment on above: Take 1 tablet by [facility] twice daily as needed. docusate sodium 100 mg oral capsule (20 sources) take 1 capsule by mouth in the morning docusate sodium (Colace) 100 MG capsule Take 1 capsule by mouth in the morning and 1 capsule before bedtime. Active Comment on above: Take 100 mg by mouth twice daily. folic acid 1 mg / polysaccharide iron complex 150 mg / vitamin b12 0.025 mg oral capsule (3 sources) Vitamin B12 Start: take 1 capsule by mouth once daily in the morning Iron Ps [id number] Acid (Poly-Iron 150 Forte) 150-25-1 mg-mcg-mg capsule [...] tablet (2 sources) Muscle Relaxant Start: End: 024 take 1 tablet by mouth three times daily as needed for muscle spasms methocarbamol (Robaxin) 750 MG tablet Indications: Spasm of muscle of lower back Take 1 tablet (750 mg) by mouth 3 (three) times a day as needed for muscle spasms. 60 tablet 1 03/12/2023 07/31/2023 Discontinued 24 hr metoprolol succinate 25 mg extended release oral capsule (14 sources) beta-Adrenergic Gunner Start: metoprolol succinate 25 mg CSpX take 1 tablet by radha th every twenty-four hours in the morning metoprolol succinate XL (Toprol XL) 25 M G 24 hr tablet Take 25 mg by mouth in the morning. Active take 1 tablet by mouth every twe lve hours Metoprolol Tartrate 25 MG 1 tablet with food Orally Twice a day Active Multiple Minerals-Vitamins (Citracal Plus) tablet (2 sources) take 1 tablet by mouth in the morning Multiple Minerals-Vitamins (Citracal Plus) tablet Take 1 tablet by mouth in the morning. 0 Active Multivitamin preparation (3 sources) Multivitamin Act prisca Mv,Ca,Gdi-Iweb-Rx-Lycope ne (Centrum Men) 8 mg iron- 200 mcg-600 mcg Tablet (3 sources) Start: Mv,Ca,Yqa-Poxn-Cc-Lycope ne (Centrum Men) 8 mg iron- 200 mcg-600 mcg Tablet Active 1 TAB PO Daily March 26, 2018 12:00am Nut.Tx.Gluc.Intol,Lac-Fr ee,Soy (Glucerna) Liquid (3 sources) Start: Nut.Tx.Gluc.Intol,Lac-Fr ee,Soy (Glucerna) Liquid Active 1 EACH PO Daily March 24, 2020 12:00am omeprazole 20 mg delayed release oral capsule (20 sources) Proton Pump Inhibitor Start: take 1 capsule by mouth once daily omeprazole (PriLOSEC) [address] capsule Indications: Gastroesophageal reflux disease without esophagitis TAKE 1 CAPSULE BY MOUTH EVERY DAY 90 capsule 3 06/10/2023 Active take 2 capsules by m outh [...] a week. 0 Active polyethylene glycol 3350 37629 mg powder for oral solution (20 sources) Osmotic Laxative take 17 g by mouth every twenty-four hours as needed polyethylene glycol, PEG, 3350 (MiraLax) 17 GM/SCOOP powder Take 17 g by mouth Daily as needed. Active MiraLax Active Comment on above: Take by mouth once d aily. sennosides, detention 8.6 mg oral tablet (3 sources) Start: take 1 tablet by mouth twice daily Sennosides (Senna) 8.6 mg Tablet Active 8.6 MG PO Twice daily January 10, 2018 12:00am sildenafil 100 mg oral tablet (20 sources) Phosphodiesterase 5 Inhibitor Start: take 1 tablet by mouth once daily as needed sildenafil (Viagra) 100 MG tablet Indications: Erectile dysfunction, unspecified erectile dysfunction type Take 1 tablet (100 mg) by mouth Daily as needed for erectile dysfunction for up to 30 doses 30 tablet 3 10/22/2023 Active Comment on above: Take 100 mg by mouth once daily. simvastatin 20 mg oral tablet (13 sources) HMG-CoA Reductase Inhibitor Start: 017 End: take 20 mg by mouth once daily at bedtime Simvastatin Active 20 MG PO Daily at bedtime April 15, 2017 12:00am Comment on above: Take 20 mg by mouth once daily. traMADol hydrochloride [...] Active triamcinolone acetonide 1 mg/ml topical cream (12 sources) Corticosteroid Start: 03-27-2022 triamcinolone (Kenalog) 0.1 % cream APPLY TO LOWER LEGS TWICE DAILY UNTIL CLEAR, THEN USE NEEDED FOR ITCH 03/27/2022 Active Start: 09-13-2016 Kenalog -40 mg Aug, Vitamin D (3 sources) Vitamin D Active zolpidem tartrate 5 mg oral tablet (20 sources) gamma-Aminobutyric Acid-ergic Agonist Start: 07-23-2019 zolpidem [...] Sig (Original) cephalexin 500 mg oral capsule (4 sources) Cephalosporin Antibacterial Start: 04-12-2022 End: 04-12-2022 cephALEXin 500 mg cap(s) (KEFLEX) Start: 04-03-2018 End: 04-14-2018 take 1 capsule by mouth every eight hours Cephalexin (Keflex) 500 mg capsule Discontinued 500 MG PO Q8H April 03, 2018 12:00am April 14, 2018 11:05am cyclobenzaprine hydrochloride 10 mg oral tablet (3 sources) Muscle Relaxant Start: 04-03-2018 End: 03-24-2020 take 10 mg by mouth three times daily Cyclobenzaprine Discontinued 10 MG PO Three times daily 50 April 03, 2018 12:00am March 24, 2020 11:39am diclofenac sodium 75 mg / miSOPROStol 0.2 mg delayed release oral tablet (3 sources) Nonsteroidal Anti-inflammatory Drug, Prostaglandin E1 Analog Start: 04-15-2017 End: 04-03-2018 take 1 tablet by mouth twice daily Diclofenac-Misopros varinder Discontinued 1 TAB PO Twice daily April 15, 2017 12:00am April 03, 2018 4:41pm gabapentin 300 mg oral capsule (3 sources) Anti-epileptic Agent Start: 03-26-2018 End: 03-24-2020 [...] sulfate 15 mg extended release oral tablet (3 sources) Opioid Agonist Start: 04-03-2018 End: 04-14-2018 take 1 tablet by mouth every twelve hours Morphine (Ms Contin) 15 mg tablet extended release Discontinued 15 MG PO Q12H 14 7 April 03, 2018 April 14, 2018 11:05am take w/enough water to swallow whole; do not crush/dissolve/chew/cut/break multivit-mins /iron/folic/l ycop (MV,CA,MIN-IR [id number] E ORAL) (7 sources) Start: 03-26-2018 End: 10-26-2022 take 1 tablet by mouth once daily multivit-mins/iron/folic/lycop (MV,CA,SVT-OONK-GT-LYCOPENE ORAL) Take 1 tablet by mouth once daily. 0 03/26/2018 10/26/2022 Discontinued Start: 03-26-2018 take 1 tablet by radha th once daily multivit-mins/iron/folic/lycop (MV,CA,BDD-RWZU-MY-LYCOPENE ORAL) Take 1 tablet by mouth once daily. 0 03/26/2018 Active Comment on above: Take 1 tablet by radha th once daily. oxyCODONE hydrochloride 5 mg oral tablet (3 sources) Opioid Agonist Start: 8 End: 0 take 1 tablet by mouth every six hours Oxycodone (Roxicodone) 5 mg Tablet Discontinued 1 - 2 TAB PO Q6H 60 April 03, 2018 March 24, 2020 11:40am Prednisone (3 sources) Start: 8 End: 0 Prednisone Discontinued 1 dose pk PO per package directions April 03, 2018 12:00am March 24, 2020 11:40am take 4 tabs for 3 days then take 3 tabs for 3 days then take 2 tabs for 3 days then take 1 tab for 3 days rivaroxaban 20 mg oral tablet (3 sources) Factor Xa Inhibitor Start: 8 End: 0 take 1 tablet by mouth once at dinner Rivaroxaban (Xarelto) 15 mg (42)- 20 mg (9) tablets,dose pack Discontinued 0 PO per package directions April 14, 2018 12:00am March 24, 2020 11:41am PO PER PKG DIR must administer with evening meal Semaglutide,0.25 or 0.5MG/DOS, (Ozempic, 0.25 or 0.5 MG/DOSE,) 2 MG/3ML solution pen-injector (9 sources) Start: 3 End: 4 Semaglutide,0.25 or 0.5MG/DOS, (Ozempic, 0.25 or 0.5 MG/DOSE,) 2 MG/3ML solution pen-injector Indications: Type 2 Diabetes Mellitus , one pre filled pen Inject 0.5 mg under the skin 1 (one) time per week 9 mL 3 06/11/2023 05/15/2024 Discontinued (Reorder) Start: 06-11-2023 Semaglutide,0. 25 or 0.5MG/DOS, (Ozempic, 0.25 or 0.5 MG/DOSE,) 2 MG/3ML solution pen-injector Indications: Type 2 Diabetes Mellitus , one pre filled pen Inject 0.5 mg under the skin 1 (one) time per week 9 mL 3 06/11/2023 Active sulfamethoxazole 400 mg / trimethoprim 80 mg oral tablet (3 sources) Dihydrofolate Reductase Inhibitor Antibacterial, Sulfonamide Antimicrobial Start: 04-14-2018 End: 03-24-2020 take 1 tablet by mouth once daily Sulfamethoxazole-Trimethoprim (Bactrim) 400-80 mg Tablet Discontinued 1 TAB PO Daily April 14, 2018 12:00am March 24, 2020 11:41am SUPARTZ FX SODIUM HYALURONATE (9 sources) Start: 01-10-2017 SUPARTZ FX SODIUM HYALURONAT E Dec, 25 mg Start: 01-03-2017 SUPARTZ FX SOD IUM HYALURONATE Dec, 25 Start: 12-27-2016 SUPARTZ FX SOD IUM HYALURONATE Dec, 25 Problems Active Problems Problem Classification Problem Date Documented Date Episodic/Chronic Acute posthemorrhagic anemia (3 sources) Anemia following acute postoperative blood loss; Translations: [Acute posthemorrhagic anemia] 04-08-2020 Episodic Anxiety disorders (13 sources) Generalized anxiety disorder; Translations: [Generalized anxiety disorder] Onset: 11-19-2022 11-19-2022 Chronic Coagulation and hemorrhagic disorders (20 sources) Factor V Leiden mutation; Translations: [Activated protein C resistance] Onset: 05-25-2022 08-20-2019 Chronic Coronary atherosclerosis and other heart disease (12 sources) Atherosclerotic heart disease of [place] coronary artery without angina pectoris; Translations: [Coronary arteriosclerosis] Onset: 11-19-2022 Chronic Disorders of lipid metabolism (20 sources) Hyperlipidemia; Translations: [Hyperlipidemia, unspecified] Onset: 01-24-2022 08-20-2019 Chronic Esophageal disorders (16 sources) Gastroesophageal reflux disease; Translations: [Gastro-esophageal reflux disease without esophagitis] Onset: 11-19-2022 04-15-2017 Chronic Essential hypertension (10 sources) Essential hypertension; Translations: [Essential (primary) hypertension] Onset: 01-18-2023 01-18-2023 Chronic Fracture of lower limb (4 sources) Closed fracture of metatarsal bone; Translations: [Fracture of unspecified metatarsal bone(s), unspecified foot, initial encounter for closed fracture] Onset: 11-10-2021 Episodic Miscellaneous mental health disorders (10 sources) Primary insomnia; Translations: [Primary insomnia] Onset: 11-19-2022 01-18-2023 Chronic Nutritional deficiencies (13 sources) Vitamin D deficiency; Translations: [Vitamin D deficiency, unspecified] Onset: 11-19-2022 11-19-2022 Chronic Osteoarthritis (20 sources) Osteoarthritis of knee; Translations: [Unilateral primary osteoarthritis, right knee] Onset: 11-06-2021 Chronic Other acquired deformities (3 sources) Acquired spondylolisthesis; Translations: [Spondylolisthesis, lumbosacral region] 04-03-2018 Episodic Other acquired deformities (3 sources) Spondylolisthesis, lumbar region; Translations: [Spondylolisthesis, lumbar region] Onset: 03-08-2022 Resolved: 03-08-2022 Episodic Other connective tissue disease (3 sources) History of total knee arthroplasty; Translations: [Presence of right artificial knee joint] 04-08-2020 Chronic Other connective tissue disease (2 sources) Arthrodesis status Onset: 03-08-2022 Resolved: 03-08-2022 Episodic Other fractures (1 source) Stress fracture, unspecified site, subsequent encounter for fracture with routine healing; Translations: [M84.30XD - Stress fracture, unspecified site, subsequent encounter for fracture with routine healing] Onset: 06-11-2018 Episodic Other non-traumatic joint disorders (6 sources) Derangement of right shoulder joint; Translations: [Other specific joint derangements of right shoulder, not elsewhere classified] 04-10-2024 Chronic Other non-traumatic joint disorders (2 sources) Pain in right shoulder; Translations: [Pain in joint, shoulder region] 04-10-2024 Episodic Other nutritional; endocrine; and metabolic disorders (12 sources) Obese class II; Translations: [Obesity, unspecified] Onset: 05-22-2019 05-22-2019 Chronic Other nutritional; endocrine; and metabolic disorders (13 sources) Morbid obesity; Translations: [Morbid (severe) obesity due to excess calories] Onset: 11-19-2022 11-19-2022 Chronic Other nutritional; endocrine; and metabolic disorders (1 source) Body mass index 30+ - obesity; Translations: [Body mass index (BMI) 32.0-32.9, adult] 07-31-2023 Chronic Other screening for suspected conditions (not mental disorders or infectious disease) (11 sources) Patient encounter status; Translations: [Encounter for screening for malignant neoplasm of colon] Onset: 10-03-2022 04-15-2017 Episodic Other upper respiratory disease (12 sources) Allergic rhinitis; Translations: [Allergic rhinitis, unspecified] Onset: 11-19-2022 11-19-2022 Chronic Residual codes; unclassified (3 sources) Insomnia; Translations: [Insomnia, unspecified] Episodic Spondylosis; intervertebral disc disorders; other back problems (3 sources) Spinal stenosis of lumbar region; Translations: [...] [CONTACT W/AND (SUSP) EXPOS COVID-19] Onset: 02-09-2022 Viral infection (1 source) COVID-19; Translations: [COVID-19] Onset: 02-09-2022 Past or Other Problems Problem Classification Problem Date Documented Da te Episodic/Chronic Allergic reactions (12 sources) Chronic idiopathic urticaria; Translations: [Idiopathic urticaria] Onset: 11-19-2022 Resolved: 01-18-2023 01-18-2023 Episodic Cancer of prostate (20 sources) Malignant tumor of prostate; Translations: [Malignant neoplasm of prostate] Onset: 11-23-2021 Resolved: 01-18-2023 Chronic Cancer of prostate (10 sources) History of malignant neoplasm of prostate; Translations: [Personal history of malignant neoplasm of prostate] Onset: 07-13-2020 01-18-2023 Episodic Diabetes mellitus without complication (18 sources) Prediabetes; Translations: [Other abnormal glucose] Onset: 01-19-2022 Episodic Other acquired deformities (15 sources) Lumbar spondylolisthesis; Translations: [Spondylolisthesis , lumbar region] Onset: 11-19-2022 11-19-2022 Episodic Other aftercare (4 sources) Other retirement (current) drug therapy; Translations: [OTH GROUP HOME 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 THERAPY] Onset: 05-23-2022 Episodic Other bone disease and musculoskeletal deformities (13 sources) Osteopenia; Translations: [Other specified disorders of [...] Resolved: 02-15-2022 Episodic Phlebitis; thrombophlebitis and thromboembolism (20 sources) H/O: Deep vein thrombosis; Translations: [Personal history of other venous thrombosis and embolism] Onset: 10-11-2021 08-20-2019 Episodic Retinal detachments; defects; vascular occlusion; and retinopathy (9 sources) Retinal disorder; 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] Onset: 11-19-2022 Resolved: 01-18-2023 01-18-2023 Chronic Unclassified (1 source) CONTACT W/AND (SUSP) EXPOS COVID-19; Translations: [CONTACT W/AND (SUSP) EXPOS COVID-19] Onset: 02-08-2022 Results Test Name Value Interpretation Reference Range Facility MR SHOULDER RIGHT WO IV CONT [facility] 04-16-2024 MR SHOULDER RIGHT WO IV CONTRAST EXAM: MR SHOULDER RIGHT WO IV CONTRAST HISTORY: Shoulder pain and decreased range of motion. TECHNIQUE: Multiplanar multisequence MRI of the shoulder was performed Without contrast. COMPARISON: Shoulder radiographs April 10, 2024. FINDINGS: Mild degenerative changes of the acromioclavicular joint without undersurface osteophyte formation. The acromion is curved. Coracoclavicular ligament intact. No subacromial/subdeltoid bursal fluid. Mild supraspinatus and subscapularis tendinosis. 6 mm intrasubstance tear along the myotendinous junction of infraspinatus superimposed on mild tendinosis. Teres minor tendon is intact. No atrophy or fatty infiltration of the rotator cuff musculature. Mild intra-articular long head biceps tendinosis. The biceps tendon resides within the bicipital groove. Anterior inferior labral degeneration/tearing. No well-defined or measurable cartilage defect. No glenohumeral joint effusion . IMPRESSION: Tiny tear along the myotendinous junction of infraspinatus superimposed on mild tendinosis. Mild supraspinatus and subscapularis tendinosis. Anterior inferior labral degeneration/tearing. Mild long head biceps tendinosis. ELECTRONICALLY SIGNED BY: Annette Hinds, DO Normal Not Available XR Shoulder - right 2 Viewso n 04-10-2024 Imaging Result: Imaging Result: scapular Y and AP x-rays of right shoulder showed humeral head to be well centered in the glenoid fossa. There was no evidence of subluxation or dislocation. Acromioclavicular joint appeared to have global degenerative changes with decreased joint space and marginal osteophytic formation. There was no acute bony process including but not limited to fracture and/or dislocation. Impression: Unremarkable right shoulder moderate acromioclavicular degenerative joint disease. [facility] Study observation (narrative) [facility] XR lumbar spine AP/LAT/FLX/E XTon 03-04-2024 XR lumbar spine AP/LAT/FLX/EXT [facility] Main [place] [address] [place] [address] XRay Report Signed Patient: Marco Antonio Benitez MR#: [id number] 69 : 1955 Acct:[id number] Age/Sex: 68 / M ADM Date: 03/04/24 Loc: XD Room: Type: [facility] Attending Dr: Preston Tejada MD Copies to: Preston Tejada MD Ordering Provider: Preston Tejada MD Date of Service: 03/04/24 XR/XR lumbar spine AP/LAT/FLX/EXT: M43.16 - Spondylolisthesis, lumbar region AP with lateral neutral, flexion and extension views Lumbar Spine HISTORY: Low back pain since surgery. A known broken screw at the S1 level. LEFT foot drop. COMPARISON: None POSTSURGICAL CHANGES: Stable hardware. Redemonstration of fractures of the S1 pedicle screws. BONY ALIGNMENT: Stable . Similar mild scoliosis. HYPERMOBILITY:No hypermobility LISTHESIS:Similar multilevel degenerative listhesis FRACTURE: No acute bony fracture DEGENERATIVE CHANGES: Unremarkable SOFT TISSUES: Unremarkable BONY MINERALIZATION:Adequat e XR/XR lumbar spine AP/LAT/FLX/EXT IMPRESSION: No hypermobility. Stable hardware with continued fractures involving the S1 pedicle screws. Similar degeneration and bony alignment. Impression dictated by: Markus Sahu M.D.03/04/2024 9:00 PM Dictation Location: [place] [address] Transcribed By: [facility] 03/04/242099 Dictated By: Markus Sahu DO 03/04/242056 Signed By: 03/04/242099 Normal [facility] DEXA BONE DENSITYon 02-13-20 DEXA BONE DENSITY FINDINGS: Dual Femur bone density obtained with a [employer] whole body system: Region BMD Young-Adult Age-Matched Total (g/cm2) (%) T-Score (%) Z-Score Mean 0.740 80 -1.4 96 -0.3 IMPRESSION: Impression: The mean BMD and corresponding T-score indicated above indicate Low Bone Mass (Osteopenia) and places the patient at a mild to moderate increased risk for fracture. There may be a future risk of developing osteoporosis. FINDINGS: Left Forearm bone density obtained with a [employer] whole body system: Region BMD Young-Adult Age-Matched Total (g/cm2) (%) T-Score (%) Z-Score Mean 0.683 84 -2.5 91 -1.3 Impression: The mean BMD and corresponding T-score indicated above indicate Osteoporosis and thus places the patient at a significantly increased risk for fracture. Comment: The T-score is the primary focus of the interpretation of a patient?s bone mineral density measurement. The T-score is the number of standard deviations an individual is above or below the mean value for a young female having normal bone mass. The WHO defines osteoporosis based on the T-score value? +1.0 to ?0.9: Normal bone mass -1.0 to -2.5: Osteopenia and thus may be at future risk of fracture -2.6 to ?5: Osteoporosis and ?at significantly increased risk of fracture? TRANSCRIBED BY: ELECTRONICALLY SIGNED BY: Jean Arrington MD Normal Not Available [facility] 11-22-2023 [facility] Office Visit (ANAIS ) MARCO ANTONIO BENITEZ ([id number]) 1955 M Date Time Provider Department 11/22/23 [...] - No malignancy. 3 cores of CHIRAG. 08/25/2020:Anderson 3+3, 2/ cores 05/28/2019: Anderson 3+3=6, 1/12 cores PSA today: 11/15/23 - [...] Jevon Zambrano MD Referring Provider: JEVON ZAMBRANO [[id number]] Allergies As of Date: 11/22/2023 (No Known Allergies) Date Reviewed: 11/22/2023 Reviewed by: Jevon Zambrano MD - Fully Assessed Reason for Visit: Follow Up [171] Primary Visit Diagnosis:Prostate cancer (HCC) [C61] Other Visit Diagnosis:Elevated (more content not included)... Normal [facility] MR Prostate WO and W contras t [...] volume were obtained using a semi-automated software (DrNaturalHealing). THREE-DIMENSIONAL IMAGIND imaging including complex volumetric analysis of the prostate was created on a dedicated stand-alone workstation (Databox)by the interpreting physician, with images reviewed and [...] Other Findings: None. DIVISION OF RADIOLOGY Provider, [facility] - 11/22/2023 * * *Final Report* * * DATE OF EXAM: Nov 22 2023 12:16PM Q 0751 - MRI PROSTATE WO/W IVCON / [...] volume were obtained using a semi-automated software (DrNaturalHealing). THREE-DIMENSIONAL IMAGIND imaging including complex volumetric analysis of the prostate was created on a dedicated stand-alone workstation (Databox)by the interpreting physician, with images reviewed and [...] of suspicion for clinically significant prostate cancer (Anderson score 3 + 4 or higher). PI-RADS v2.1 Assessment Categories: PI-RADS 1: Clinically significant cancer is highly unlikely PI-RADS 2: Clinically significant cancer is unlikely PI-RADS 3: Clinically significant cancer is equivocal PI-RADS 4: Clinically significant cancer is likely PI-RADS 5: Clinically significant cancer is highly likely (V..2018) Opener: LIZETTE Transcribe Date/Time: Nov 22 2023 1:34P Dictated by : ALEXIA MOY MD This examination was interpreted and the report reviewed and electronically signed by: LORENZO HEBERT MD on Nov 22 2023 3:20PM [facility] MR Unspecified body region 3 D post processingon 11-22-2023 * * *Final Report* * * DATE OF EXAM: Nov 22 2023 12:16PM [facility] 0280 - MRI 3D POST PROCESSING [...] volume were obtained using a semi-automated software (DrNaturalHealing). THREE-DIMENSIONAL IMAGIND imaging including complex volumetric analysis of the prostate was created on a dedicated stand-alone workstation (Databox)by the interpreting physician, with images reviewed and [...] Other Findings: None. DIVISION OF RADIOLOGY Provider, [facility] - 11/22/2023 * * *Final Report* * * DATE OF EXAM: Nov 22 2023 12:16PM [facility] 0280 - MRI 3D POST PROCESSING [...] volume were obtained using a semi-automated software (DrNaturalHealing). THREE-DIMENSIONAL IMAGIND imaging including complex volumetric analysis of the prostate was created on a dedicated stand-alone workstation (Databox)by the interpreting physician, with images reviewed and [...] of suspicion for clinically significant prostate cancer (Anderson score 3 + 4 or higher). PI-RADS v2.1 Assessment Categories: PI-RADS 1: Clinically significant cancer is highly unlikely PI-RADS 2: Clinically significant cancer is unlikely PI-RADS 3: Clinically significant cancer is equivocal PI-RADS 4: Clinically significant cancer is likely PI-RADS 5: Clinically significant cancer is highly likely (V.05.2019) Opener: PSCB Transcribe Date/Time: Nov 22 2023 1:34P Dictated by : ALEXIA MOY MD This examination was interpreted and the report reviewed and electronically signed by: LORENZO HEBERT MD on Nov 22 2023 3:20PM [facility] MRI 3D POST PROCESSINGon MRI 3D POST PROCESSING * * *Final Report* * * DATE OF EXAM: Nov 22 2023 12:16PM [facility] 0280 - MRI 3D POST PROCESSING [...] volume were obtained using a semi-automated software (DrNaturalHealing). THREE-DIMENSIONAL IMAGIND imaging including complex volumetric analysis of the prostate was created on a dedicated stand-alone workstation (Databox)by the interpreting physician, with images reviewed and [...] of suspicion for clinically significant prostate cancer (Anderson score 3 + 4 or higher). PI-RADS v2.1 Assessment Categories: PI-RADS 1: Clinically significant cancer is highly unlikely PI-RADS 2: Clinically significant cancer is unlikely PI-RADS 3: Clinically significant cancer is equivocal PI-RADS 4: Clinically significant cancer is likely PI-RADS 5: Clinically significant cancer is highly likely (V.) Opener: LIZETTE Transcribe Date/Time: Nov 22 2023 1:34P Dictated by : ALEXIA MOY MD This examination was interpreted and the report reviewed and electronically signed by: LORENZO HEBERT MD on Nov 22 2023 3:20PM EST [id number] Normal [facility] MRI PROSTATE WO/W IVCONon MRI PROSTATE WO/W [...] volume were obtained using a semi-automated software (DrNaturalHealing). THREE-DIMENSIONAL IMAGIND imaging including complex volumetric analysis of the prostate was created on a dedicated stand-alone workstation (Databox)by the interpreting physician, with images reviewed and [...] Clinically significant cancer is highly likely (V..2018) Opener: LIZETTE Transcribe Date/Time: Nov 22 2023 1:34P Dictated by : ALEXIA MOY MD This examination was interpreted and the report reviewed and electronically signed by: LORENZO HEBERT MD on Nov 22 2023 3:20PM EST [id number] Normal [facility] Panel Informationon 05-31 -2024 IMPRESSION: 1.0 cm left anterior transition PI-RADS [...] Clinically significant cancer is highly likely (V.) Opener: LIZETTE Transcribe Date/Time: Nov 22 2023 1:34P Dictated by : ALEXIA MOY MD This examination was interpreted and the report reviewed and electronically signed by: LORENZO HEBERT MD on Nov 22 2023 3:20PM [facility] DIVISION OF RADIOLOGY Radiology Study observation (narrative) [facility] No Panel InformationOrdered By: Ccf Provider on 11-22-[address] [facility] URINALYSIS, REFLEX MICROSCOP ICon 11-22-2023 Bilirubin Ql (U) Negative Negative [facility] Clarity (Unsp spec) Clear Clear [facility] Color (U) Light Yellow Yellow [facility] Glucose Test strip (U) [Mass/Vol] Negative Trace, Negative [facility] Hemoglobin Ql (U) Negative Negative, Trace [facility] Interpretation and review of laboratory results Abnormal [facility] Ketones Ql (U) Negative Negative, Trace [facility] Leukocyte esterase Test strip Ql (U) Negative Negative, 25 Rae/uL [facility] Nitrite Ql (U) Negative Negative [facility] pH (U) 5.5 [pH] 5.0 - 8.[address] [facility] Protein (U) [Mass/Vol] Negative Trace, Negative [facility] Specific gravity (U) [Rel density] 1.032 High 1.005 - 1.[address] [facility] Urobilinogen Ql (U) Normal Normal [facility] Bilirubin Ql (U) Negative Normal Negative [facility] Comment on above: Order Comment: Speci men Type: URINE SPECIMEN Ordering Facility: [facility] Address: [address] [place] [address] Performed By: #### L [id number] #### [facility] CLIA [id number] [address] [place] [address] [place] Clarity (Unsp spec) Clear Normal Clear [facility] Comment on above: Order Comment: Speci men Type: URINE SPECIMEN Ordering Facility: [facility] Address: [address] [place] [address] Performed By: #### L [id number] #### [facility] CLIA [id number] [address] [place] [address] [place] Color (U) Light Yellow Normal Yellow [facility] Comment on above: Order Comment: Speci men Type: URINE SPECIMEN Ordering Facility: [facility] Address: [address] [place] [address] Performed By: #### L [id number] #### [facility] CLIA [id number] [address] [place] [address] [place] Glucose Test strip (U) [Mass/Vol] Negative Normal Trace, Negative [facility] Comment on above: Order Comment: Speci men Type: URINE SPECIMEN Ordering Facility: [facility] Address: [address] [place] [address] Performed By: #### L [id number] #### [facility] CLIA [id number] [address] [place] [address] [place] Hemoglobin Ql (U) Negative Normal Negative, Trace [facility] Comment on above: Order Comment: Speci men Type: URINE SPECIMEN Ordering Facility: [facility] Address: [address] [place] [id number] Performed By: #### L [id number] #### [facility] CLIA [id number] [address] [place] [address] [place] Ketones Ql (U) Negative Normal Negative, Trace [facility] Comment on above: Order Comment: Speci men Type: URINE SPECIMEN Ordering Facility: [facility] Address: [address] [place] [address] Performed By: #### L [id number] #### [facility] CLIA [id number] [address] [place] [address] [place] Leukocyte esterase Test strip Ql (U) Negative Normal Negative, 25 Rae/uL [facility] Comment on above: Order Comment: Speci men Type: URINE SPECIMEN Ordering Facility: [facility] Address: [address] [place] [address] Performed By: #### L [id number] #### [facility] CLIA [id number] [address] [place] [address] [place] Nitrite Ql (U) Negative Normal Negative [facility] Comment on above: Order Comment: Speci men Type: URINE SPECIMEN Ordering Facility: [facility] Address: [address] [place] [address] Performed By: #### L [id number] #### [facility] CLIA [id number] [address] [place] [address] [place] pH (U) 5.5 [pH] Normal 5.0-8.0 [facility] Comment on above: Order Comment: Speci men Type: URINE SPECIMEN Ordering Facility: [facility] Address: [address] [place] [address] Performed By: #### L [id number] #### [facility] CLIA [id number] [address] [place] [address] [place] Protein (U) [Mass/Vol] Negative Normal Trace, Negative [facility] Comment on above: Order Comment: Speci men Type: URINE SPECIMEN Ordering Facility: [facility] Address: [address] [place] [address] Performed By: #### L [id number] #### [facility] CLIA [id number] [address] [place] [address] [place] Specific gravity (U) [Rel density] 1.032 High 1.005-1.030 [facility] Comment on above: Order Comment: Speci men Type: URINE SPECIMEN Ordering Facility: [facility] Address: [address] [place] [address] Performed By: #### L [id number] #### [facility] CLIA [id number] [address] [place] [address] [place] Urobilinogen Ql (U) Normal Normal Normal [facility] Comment on above: Order Comment: Speci men Type: URINE SPECIMEN Ordering Facility: [facility] Address: [address] [place] [address] Performed By: #### L [id number] #### [facility] CLIA [id number] [address] [place] [address] [place] Office Visiton 05-30-2023 Follow-up visit [id number] Roma Benitez 1955 M Date Provider Department Center 05/30/2023 BERRY QUIGLEY Family History Problem Relation Age of Onset Sick sinus syndrome Father Other Other Family Status - Relation Status Age at Father Other Level of Service:92611 PA OFFICE/OUTPATIENT ESTABLISHED LOW MDM 20-29 MIN Normal [facility] GLYCOHEMOGLOBIN A1Con 2022 ADA RECOMMENDATION SEE BELOW Normal [facility] Comment on above: Result Comment: ADA RECOMMENDED LIMIT 4.0 - 6.0 ADA THERAPEUTIC TARGET < 7.0 ACTION SUGGESTED > 7.0 Performed By: #### A 1C #### [facility] [address] [address] [address] Chari Lantigua Glucose [Mass/Vol] 126 mg/dL Normal [facility] Comment on above: Performed By: #### A 1C #### [facility] [address] [address] [address] Chari Lantigua HbA1c (Bld) [Mass fraction] 6.0 % Normal 4.5-6.2 [facility] Comment on above: Performed By: #### A 1C #### [facility] [address] [address] [address] Chari Lantigua MICROALB CREAT RATIO RANDOMo n 07-21-2022 mALB 3.7 mg/L Normal <=30.0 [facility] Comment on above: Performed By: #### M CRR #### [facility] [address] [address] [address] Chari Lantigua MALB CR RATIO 14.4 mg/g Normal 0.0-29.9 [facility] Comment on above: Performed By: #### M CRR #### [facility] [address] [place] [address] Dr. Chari Lantigua MALB CR RATIO RANGE SEE BELOW Normal [facility] Comment on above: Result Comment: NO M ICROALBUMINURIA 0-29 MG/G CLINICAL MICROALBUMINURIA 30-300 MG/G MACROALBUMINURIA >300 MG/G Performed By: #### M CRR #### [facility] [address] [place] [address] Dr. Chari Lantigua URINE CREAT 257.81 mg/dL Normal 20.00-300.00 [facility] Comment on above: Performed By: #### M CRR #### [facility] [address] [place] [address] Dr. Chari Lantigua PROF 14(COMP METB)on 023 Albumin [Mass/Vol] 4.0 g/dL Normal 3.4-5.0 [facility] Comment on above: Performed By: #### C BC #### [facility] [address] [place] [address] Dr. Chari Lantigua Albumin/Globulin [Mass ratio] 1.2 {ratio} Normal [facility] Comment on above: Performed By: #### C BC #### [facility] [address] [place] [address] Dr. Chari Lantigua ALP [Catalytic activity/Vol] 83 U/L Normal 46-116 [facility] Comment on above: Performed By: #### C BC #### [facility] [address] [address] [address] Chari Lantigua ALT [Catalytic activity/Vol] 46 U/L Normal 16-63 [facility] Comment on above: Performed By: #### C BC #### [facility] [address] [address] [address] Chari Lantigua Anion gap [Moles/Vol] 14.0 mmol/L Normal [facility] Comment on above: Performed By: #### C BC #### [facility] [address] [address] [address] Chari Lantigua AST [Catalytic activity/Vol] 30 U/L Normal 15-37 [facility] Comment on above: Performed By: #### C BC #### [facility] [address] [place] [address] Dr. Chari Lantigua Bilirubin [Mass/Vol] 0.5 mg/dL Normal 0.2-1.0 [facility] Comment on above: Performed By: #### C BC #### [facility] [address] [place] [address] Dr. Chari Lantigua Calcium [Mass/Vol] 8.9 mg/dL Normal 8.5-10.1 [facility] Comment on above: Performed By: #### C BC #### [facility] [address] [place] [address] Dr. Chari Lantigua Chloride [Moles/Vol] 104 mmol/L Normal 98-107 [facility] Comment on above: Performed By: #### C BC #### [facility] [address] [place] [address] Dr. Chari Lantigua CO2 [Moles/Vol] 28.7 mmol/L Normal 21.0-32.0 [facility] Comment on above: Performed By: #### C BC #### [facility] [address] [place] [address] Dr. Chari Lantigua Creatinine [Mass/Vol] 0.81 mg/dL Normal 0.70-1.30 [facility] Comment on above: Performed By: #### C BC #### [facility] [address] [place] [address] Dr. Chari Lantigua EGFR-AF NICARAGUAN >60 Normal >=60 [facility] Comment on above: Performed By: #### C BC #### [facility] [address] [place] [address] Dr. Chari Lantigua EGFR-NON AF NICARAGUAN >60 Normal >=60 [facility] Comment on above: Performed By: #### C BC #### [facility] [address] [address] [address] Chari Lantigua Globulin (S) [Mass/Vol] 3.4 g/dL Normal [facility] Comment on above: Performed By: #### C BC #### [facility] [address] [place] [address] Dr. Chari Lantigua Glucose [Mass/Vol] 120 mg/dL Critically high 74-106 [facility] Comment on above: Performed By: #### C BC #### [facility] [address] [place] [address] Dr. Chari Lantigua Potassium [Moles/Vol] 4.7 mmol/L Normal 3.5-5.1 [facility] Comment on above: Performed By: #### C BC #### [facility] [address] [place] [address] Dr. Chari Lantigua Protein [Mass/Vol] 7.4 g/dL Normal 6.4-8.2 [facility] Comment on above: Performed By: #### C BC #### [facility] [address] [place] [address] Dr. Chari Lantigua Sodium [Moles/Vol] 142 mmol/L Normal 136-145 [facility] Comment on above: Performed By: #### C BC #### [facility] [address] [place] [address] Dr. Chari Lantigua Urea nitrogen [Mass/Vol] 21.0 mg/dL Critically high 7.0-18.0 [facility] Comment on above: Performed By: #### C BC #### [facility] [address] [place] [address] Dr. Chari Lantigua Urea nitrogen/Creatinine [Mass ratio] 25.9 mg/mg Normal [facility] Comment on above: Performed By: #### C BC #### [facility] [address] [place] [address] Dr. Chari Lantigua UA RANDOMon 07-21-2022 Bilirubin Ql (U) Negative Normal NEGATIVE [facility] Comment on above: Performed By: #### C BC #### [facility] [address] [place] [address] Dr. Chari Lantigua Clarity (U) CLEAR Normal CLEAR [facility] Comment on above: Performed By: #### C BC #### [facility] [address] [place] [address] Dr. Chari Lantigua Color (U) YELLOW Normal YELLOW [facility] Comment on above: Performed By: #### C BC #### [facility] [address] [place] [address] Dr. Chari Lantigua Glucose Ql (U) Negative Normal NEGATIVE [facility] Comment on above: Performed By: #### C BC #### [facility] [address] [place] [address] Dr. Chari Lantigua Hemoglobin Ql (U) Negative Normal NEGATIVE [facility] Comment on above: Performed By: #### C BC #### [facility] [address] [place] [address] Dr. Chari Lantigua Ketones Ql (U) Negative Normal NEGATIVE [facility] Comment on above: Performed By: #### C BC #### [facility] [address] [place] [address] Dr. Chari Lantigua LEUKOCYTES Negative Normal NEGATIVE [facility] Comment on above: Performed By: #### C BC #### [facility] [address] [place] [address] Dr. Chari Lantigua Nitrite Ql (U) Negative Normal NEGATIVE [facility] Comment on above: Performed By: #### C BC #### [facility] [address] [place] [address] Dr. Chari Lantigua pH (U) 6.0 [pH] Normal 5-9 [facility] Comment on above: Performed By: #### C BC #### [facility] [address] [place] [address] Dr. Chari Lantigua SPEC GRAVITY 1.025 Normal 1.005-<=1.02 5 [facility] Comment on above: Performed By: #### C BC #### [facility] [address] [place] [address] Dr. Chari Lantigua UA PROTEIN Negative Normal NEGATIVE/ TRACE [facility] Comment on above: Performed By: #### C BC #### [facility] [address] [place] [address] Dr. Chari Lantigua Urobilinogen Qn (U) 0.2 {Kyle'U}/dL Normal 0.2 - 1. 0 [facility] Comment on above: Performed By: #### C BC #### [facility] [address] [place] [address] Dr. Chari Lantigua PROF CHEM 8 (BAS METB)on Anion gap [Moles/Vol] 11.3 mmol/L Normal [facility] Comment on above: Performed By: #### C BC #### [facility] [address] [place] [address] Dr. Chari Lantigua Calcium [Mass/Vol] 8.8 mg/dL Normal 8.5-10.1 [facility] Comment on above: Performed By: #### C BC #### [facility] [address] [place] [address] Dr. Chari Lantigua Chloride [Moles/Vol] 103 mmol/L Normal 98-107 [facility] Comment on above: Performed By: #### C BC #### [facility] [address] [place] [address] Dr. Chari Lantigua CO2 [Moles/Vol] 29.2 mmol/L Normal 21.0-32.0 [facility] Comment on above: Performed By: #### C BC #### [facility] [address] [place] [address] Dr. Chari Lantigua Creatinine [Mass/Vol] 0.72 mg/dL Normal 0.70-1.30 [facility] Comment on above: Performed By: #### C BC #### [facility] [address] [place] [address] Dr. Chari Lantigua EGFR-AF NICARAGUAN >60 Normal >=60 [facility] Comment on above: Performed By: #### C BC #### [facility] [address] [place] [address] Dr. Chari Lantigua EGFR-NON AF NICARAGUAN >60 Normal >=60 [facility] Comment on above: Performed By: #### C BC #### [facility] [address] [place] [address] Dr. Chari Lantigua Glucose [Mass/Vol] 133 mg/dL Critically high 74-106 [facility] Comment on above: Performed By: #### C BC #### [facility] [address] [place] [address] Dr. Chari Lantigua Potassium [Moles/Vol] 4.5 mmol/L Normal 3.5-5.1 [facility] Comment on above: Performed By: #### C BC #### [facility] [address] [place] [address] Dr. Chari Lantigua Sodium [Moles/Vol] 139 mmol/L Normal 136-145 [facility] Comment on above: Performed By: #### C BC #### [facility] [address] [place] [address] Dr. Chari Lantigua Urea nitrogen [Mass/Vol] 16.0 mg/dL Normal 7.0-18.0 [facility] Comment on above: Performed By: #### C BC #### [facility] [address] [place] [address] Dr. Chari Lantigua Urea nitrogen/Creatinine [Mass ratio] 22.2 mg/mg Normal [facility] Comment on above: Performed By: #### C BC #### [facility] [address] [place] [address] Dr. Chari Lantigua SURGICAL PATHOLOGYon 022 Case Report Surgical Pathology Report Case: [id number] Authorizing Provider: Hugo Garcia MD Collected: 04/12/2022 [...] BIOPSY RIGHT, posterior x [address] [facility] Clinical History elevated PSA Clevel [...] laboratory within [facility] Pathology and Laboratory Medicine [place] ([facility], [facility], [facility] or [facility]) in a manner consistent with CLIA requirements. One or more of these tests have not been cleared or approved by the FDA. [facility] is regulated under CLIA as qualified to perform high-complexity testing. These tests are used for clinical purposes. They should not be regarded as investigational or for research. Positive and negative controls stain appropriately. [facility] FINAL DIAGNOSIS A. Prostate, left [...] Benign prostate tissue. JOLENE/laurie 04/17/[address] [facility] Gross Description A. PROSTATE NEEDLE [...] BIOPSY LEFT Received in alcoholic formalin on Tel gauze is one segment and one fragment of cylindrical tissue measuring 1.4 x 0.1 x 0.1 cm, bae and of a soft and friable consistency. Totally submitted in formalin in one cassette. D. PROSTATE NEEDLE BIOPSY RIGHT Received in alcoholic formalin on Tel gauze are three segments and multiple fragments of cylindrical tissue ranging in length from 0.5 cm to 0.9 cm and averaging 0.1 cm in diameter, bae and of a soft and friable consistency. Totally submitted in formalin in two cassettes. E. PROSTATE NEEDLE BIOPSY RIGHT Received in alcoholic formalin on [facility] gauze are two segments of cylindrical tissue ranging in length from 1.7 cm to 1.8 cm and averaging 0.1 cm in diameter, bae and of a soft and friable consistency. Totally submitted in formalin in one cassette. Gross examination performed at [facility], [address] [place] [id number] 04/12/2022 10:[address] [facility] Performing Lab Diagnostic interpretation performed at [address] [id number] Consumer Relations Complaint Clerk: Gutierrez Jha M.D. [facility] UA DIP, URINE (POC)on 2021 BILIRUBIN UA (POCT) Negative Negative [facility] CLARITY UA (POCT) Clear [facility] COLOR UA (POCT) Yellow [facility] GLUCOSE UA (POCT) Negative Negative mg/dL [facility] HEMOGLOBIN/BLOOD UA (POCT) Negative Negative [facility] KETONE UA (POCT) Negative Negative mg/dL [facility] LEUKOCYTES UA (POCT) Negative Negative [facility] NITRITE UA (POCT) Negative Negative [facility] PH UA (POCT) 6.0 4.5 - 8.[address] [facility] Protein Ql (U) Negative Negative mg/dL [facility] SPECIFIC GRAVITY UA (POCT) 1.025 1.005 - 1.[address] [facility] UROBILINOGEN UA (POCT) 0.2 E.U./dL Normal E.U./dL [facility] US TRANSRECTAL PROSTATE (ALEXEI S) (POC) GUKI USE ONLYon 04-12-[address] [facility] Covid-19 PCR (CVDTBH)on 01-22 SARS-CoV-2 (COVID-19) RNA ILA+probe Ql (Unsp spec) Detected Critically abnormal NOT DETECTED [facility] Comment on above: Result Comment: This test is not yet approved or cleared by the [place] FDA. When there are no FDA-approved or cleared tests available, and other criteria are met, FDA can make tests available under an emergency access mechanism called an Emergency Use Authorization (EUA). The EUA for this test is supported by the [place] of Health and Human Service's (HHS's) declaration [...] used). Performed By: #### C VDTBH #### [facility] [address] [place] [address] Dr. Chari Lantigua INFLUENZA A AND B AGon 02-08 INFLUENZA A AG Negative Normal NEGATIVE SEE COMMENT [facility] Comment on above: Performed By: #### I NFLUAB #### [facility] [address] [place] [address] Dr. Chari Lantigua INFLUENZA B AG Negative Normal NEGATIVE SEE COMMENT [facility] Comment on above: Performed By: #### I NFLUAB #### [facility] [address] [place] [address] Dr. Chari Lantigua INTERNAL CONTROLS Within Normal Limits Normal Wi thin Normal Limits [facility] Comment on above: Performed By: #### I NFLUAB #### [facility] [address] [place] [address] Dr. Chari Lantigua CBC AUTO DIFFon 01-19-2022 BASO # 0.0 103/ul Normal 0.0-0.1 [facility] Comment on above: Performed By: #### C BC #### [facility] [address] [address] [address] Chari Lantigua Basophils/100 WBC (Bld) 0.3 % Normal 0.2-2.0 [facility] Comment on above: Performed By: #### C BC #### [facility] [address] [address] [address] Chari Lantigua EO # 0.2 103/ul Normal 0.0-0.7 [facility] Comment on above: Performed By: #### C BC #### [facility] [address] [address] [address] Chari Lantigua Eosinophils/100 WBC (Bld) 3.1 % Normal 0.9-7.0 [facility] Comment on above: Performed By: #### C BC #### [facility] [address] [place] [address] Dr. Chari Lantigua Erythrocyte distribution width (RBC) [Ratio] 13.2 % Normal 11.0-15.0 [facility] Comment on above: Performed By: #### C BC #### [facility] [address] [place] [address] Dr. Chari Lantigua Hematocrit (Bld) [Volume fraction] 43.4 % Normal 42.0-54.0 [facility] Comment on above: Performed By: #### C BC #### [facility] [address] [place] [address] Dr. Chari Lantigua Hemoglobin (Bld) [Mass/Vol] 14.5 g/dL Normal 14.0-18.0 [facility] Comment on above: Performed By: #### C BC #### [facility] [address] [place] [address] Dr. Chari Lantigua IG # 0.03 10e3/ul Normal 0.00-0.03 [facility] Comment on above: Performed By: #### C BC #### [facility] [address] [place] [address] Dr. Chari Lantigua IG % 0.4 % Normal 0.0-0.5 [facility] Comment on above: Performed By: #### C BC #### [facility] [address] [address] [address] Chari Lantigua LYMPH # 1.7 103/ul Normal 1.2-3.8 [facility] Comment on above: Performed By: #### C BC #### [facility] [address] [place] [address] Dr. Chari Lantigua Lymphocytes/100 WBC (Bld) 23.1 % Normal 20.5-60.0 [facility] Comment on above: Performed By: #### C BC #### [facility] [address] [place] [address] Dr. Chari Lantigua MANUAL DIFF REQ NO Normal [facility] Comment on above: Performed By: #### C BC #### [facility] [address] [place] [address] Dr. Chari Lantigua MCH (RBC) [Entitic mass] 31.3 pg Normal 25.9-34.0 [facility] Comment on above: Performed By: #### C BC #### [facility] [address] [place] [address] Dr. Chari Lantigua MCHC (RBC) [Mass/Vol] 33.4 g/dL Normal 29.9-35.2 [facility] Comment on above: Performed By: #### C BC #### [facility] [address] [place] [address] Dr. Chari Lantigua MCV (RBC) [Entitic vol] 93.7 fL Normal 80.0-94.0 [facility] Comment on above: Performed By: #### C BC #### [facility] [address] [place] [address] Dr. Chari Lantigua MONO # 0.9 103/ul Critically high 0.3-0.8 [facility] Comment on above: Performed By: #### C BC #### [facility] [address] [place] [address] Dr. Chari Lantigua Monocytes/100 WBC (Bld) 12.1 % Critically high 1.7-12.0 [facility] Comment on above: Performed By: #### C BC #### [facility] [address] [address] [address] Chari Lantigua NEUT # 4.6 103/ul Normal 1.4-6.5 [facility] Comment on above: Performed By: #### C BC #### [facility] [address] [address] [address] Chari Lantigua Neutrophils/100 WBC (Bld) 61.0 % Normal 43.0-75.0 [facility] Comment on above: Performed By: #### C BC #### [facility] [address] [address] [address] Chari Lantigua Platelet mean volume (Bld) [Entitic vol] 8.2 fL Critically low 9.5-13.5 [facility] Comment on above: Performed By: #### C BC #### [facility] [address] [place] [address] Dr. Chari Lantigua PLT 219 103/ul Normal 150-450 [facility] Comment on above: Performed By: #### C BC #### [facility] [address] [address] [address] Chari Lantigua RBC 4.63 106/ul Critically low 4.70-6.10 [facility] Comment on above: Performed By: #### C BC #### [facility] [address] [place] [address] Dr. Chari Lantigua WBC 7.5 103/ul Normal 4.0-11.0 [facility] Comment on above: Performed By: #### C BC #### [facility] [address] [place] [address] Dr. Chari Lantigua GLYCOHEMOGLOBIN A1Con 2021 ADA RECOMMENDATION SEE BELOW Normal [facility] Comment on above: Result Comment: ADA RECOMMENDED LIMIT 4.0 - 6.0 ADA THERAPEUTIC TARGET < 7.0 ACTION SUGGESTED > 7.0 Performed By: #### C BC #### [facility] [address] [place] [address] Dr. Chari Lantigua Glucose [Mass/Vol] 140 mg/dL Normal [facility] Comment on above: Performed By: #### C BC #### [facility] [address] [address] [address] Chari Lantigua HbA1c (Bld) [Mass fraction] 6.5 % Critically high 4.5-6.2 [facility] Comment on above: Performed By: #### C BC #### [facility] [address] [address] [address] Chari Lantigua LIPID PROFILEon 01-19-2022 CHOL-HDL RATIO NORM SEE BELOW Normal [facility] Comment on above: Result Comment: 3.3 - 4.4 LOW RISK 4.4 - 7.1 AVERAGE RISK 7.1 - 11.0 MODERATE RISK >11.0 HIGH RISK Performed By: #### C MP, LIPID #### [facility] [address] [place] [address] Dr. Chari Lantigua Cholesterol [Mass/Vol] 139 mg/dL Normal <=200 [facility] Comment on above: Performed By: #### C MP, LIPID #### [facility] [address] [place] [address] Dr. Chari Lantigua Cholesterol in HDL [Mass/Vol] 42 mg/dL Normal 40-60 [facility] Comment on above: Performed By: #### C MP, LIPID #### [facility] [address] [place] [address] Dr. Chari Lantigua Cholesterol in LDL [Mass/Vol] 71.4 mg/dL Normal [facility] Comment on above: Performed By: #### C MP, LIPID #### [facility] [address] [place] [address] Dr. Chari Lantigua Cholesterol.total/Cho lesterol in HDL [Mass ratio] 3.3 {ratio} Normal [facility] Comment on above: Performed By: #### C MP, LIPID #### [facility] [address] [place] [address] Dr. Chari Lantigua HDL NORMAL > or = 60 mg/dl - LO W CARDIOVASCULAR RISK <40 mg/dl - HIGH CARDIOVASCULAR RISK Normal [facility] Comment on above: Performed By: #### C MP, LIPID #### [facility] [address] [place] [address] Dr. Chari Lantigua LDL CALC NORMAL SEE BELOW Normal [facility] Comment on above: Result Comment: <100 mg/dl OPTIMAL 100 - 129 mg/dl NEAR OR ABOVE OPTIMAL 130 - 159 mg/dl BORDERLINE HIGH 160 - 189 mg/dl HIGH >190 mg/dl VERY HIGH Performed By: #### C MP, LIPID #### [facility] [address] [address] [address] Chari Lantigua Triglyceride [Mass/Vol] 128 mg/dL Normal <=150 [facility] Comment on above: Performed By: #### C MP, LIPID #### [facility] [address] [address] [address] Chari Lantigua VLDL CALC 25.6 mg/dL Normal [facility] Comment on above: Performed By: #### C MP, LIPID #### [facility] [address] [address] [address] Chari Lantigua PROF 14(COMP METB)on 022 Albumin [Mass/Vol] 3.6 g/dL Normal 3.4-5.0 [facility] Comment on above: Performed By: #### C MP, LIPID #### [facility] [address] [address] [address] Chari Lantigua Albumin/Globulin [Mass ratio] 1.2 {ratio} Normal [facility] Comment on above: Performed By: #### C MP, LIPID #### [facility] [address] [address] [address] Chari Lantigua ALP [Catalytic activity/Vol] 71 U/L Normal 46-116 [facility] Comment on above: Performed By: #### C MP, LIPID #### [facility] [address] [address] [address] Chari Lantigua ALT [Catalytic activity/Vol] 38 U/L Normal 16-63 [facility] Comment on above: Performed By: #### C MP, LIPID #### [facility] [address] [address] [address] Chari Lantigua Anion gap [Moles/Vol] 10.3 mmol/L Normal [facility] Comment on above: Performed By: #### C MP, LIPID #### [facility] [address] [address] [address] Chari Lantigua AST [Catalytic activity/Vol] 26 U/L Normal 15-37 [facility] Comment on above: Performed By: #### C MP, LIPID #### [facility] [address] [address] [address] Chari Lantigua Bilirubin [Mass/Vol] 0.7 mg/dL Normal 0.2-1.0 [facility] Comment on above: Performed By: #### C MP, LIPID #### [facility] [address] [address] [address] Chari Lantigua Calcium [Mass/Vol] 8.5 mg/dL Normal 8.5-10.1 [facility] Comment on above: Performed By: #### C MP, LIPID #### [facility] [address] [place] [address] Dr. Chari Lantigua Chloride [Moles/Vol] 105 mmol/L Normal 98-107 [facility] Comment on above: Performed By: #### C MP, LIPID #### [facility] [address] [address] [address] Chari Lantigua CO2 [Moles/Vol] 30.3 mmol/L Normal 21.0-32.0 [facility] Comment on above: Performed By: #### C MP, LIPID #### [facility] [address] [address] [address] Chari Lantigua Creatinine [Mass/Vol] 0.77 mg/dL Normal 0.70-1.30 [facility] Comment on above: Performed By: #### C MP, LIPID #### [facility] [address] [address] [address] Chari Lantigua EGFR-AF NICARAGUAN >60 Normal >=60 [facility] Comment on above: Performed By: #### C MP, LIPID #### [facility] [address] [address] [address] Chari Lantigua EGFR-NON AF NICARAGUAN >60 Normal >=60 [facility] Comment on above: Performed By: #### C MP, LIPID #### [facility] [address] [address] [address] Chari Lantigua Globulin (S) [Mass/Vol] 3.0 g/dL Normal [facility] Comment on above: Performed By: #### C MP, LIPID #### [facility] [address] [address] [address] Chari Lantigua Glucose [Mass/Vol] 149 mg/dL Critically high 74-106 [facility] Comment on above: Performed By: #### C MP, LIPID #### [facility] [address] [address] [address] Chari Lantigua Potassium [Moles/Vol] 4.6 mmol/L Normal 3.5-5.1 [facility] Comment on above: Performed By: #### C MP, LIPID #### [facility] [address] [address] [address] Chari Lantigua Protein [Mass/Vol] 6.6 g/dL Normal 6.4-8.2 [facility] Comment on above: Performed By: #### C MP, LIPID #### [facility] [address] [address] [address] Chari Lantigua Sodium [Moles/Vol] 141 mmol/L Normal 136-145 [facility] Comment on above: Performed By: #### C MP, LIPID #### [facility] [address] [address] [address] Chari Lantigua Urea nitrogen [Mass/Vol] 12.0 mg/dL Normal 7.0-18.0 [facility] Comment on above: Performed By: #### C MP, LIPID #### [facility] [address] [address] [address] Chari Lantigua Urea nitrogen/Creatinine [Mass ratio] 15.6 mg/mg Normal [facility] Comment on above: Performed By: #### C MP, LIPID #### [facility] [address] [address] FOOT RT WO CONon 11-07-19 CT FOOT RT WO CON EXAMINATION: CT [...] CHAPIS HUANG Date: 2021-11-06 09:52 Normal [facility] MRI PROSTATE WO/W IVCONon [facility] HOMOCYSTEINEon 10-12-2021 Homocyst(e)ine, Plasma 7.7 umol/L Normal 0.0-17.2 [facility] Comment on above: Performed By: #### H OMCY #### [facility] [address] [place] [address] Dr. Chari Lantigua ANTI-BETA 2 GLYCOPROTEIN 1on 10-06-2021 ANTI B2GP1 IGG 0.1 g units Normal 0.0-19.9 [facility] Comment on above: Performed By: #### 9 0118, [id number] #### [facility] [address] [place] [address], [facility] ANTI B2GP1 IGM 1.7 m units Normal 0.0-19.9 [facility] Comment on above: Performed By: #### 9 0118, 88490 #### [facility] [address] [place] [address], [place] ANTICARDIOLIPIN ANTIBODYon 0 10-06-2021 CARDIOLIPIN IGG 1.6 GPL Normal 0.0-22.9 [facility] Comment on above: Performed By: #### 9 0118, 77670 #### [facility] [address] CARDIOLIPIN IGM 0.9 MPL Normal 0.0-10.9 [facility] Comment on above: Performed By: #### 9 0118, 11735 #### [facility] [address] ANTITHROMBIN III ACTIVITYon 10-06-2021 AT 3 ACTIVITY 100 % Normal 70-120 [facility] Comment on above: Performed By: #### 5 3017, 64732, 56596, 35818 #### [facility] [address] [place] R506Q [place] [address]md 10-06-2021 FACTOR V LEIDEN Heterozygous Abnormal [facility] Comment on above: Result Comment: Alem cation for testing: Assess genetic risk for thrombosis. HETEROZYGOUS: One copy of the factor V Leiden variant, c.1601G>A; p.[id number], was detected. This is associated with activated [...] function in the F5 gene variant c.1601G>A (p.[id number]). Legacy nomenclature: R506Q (1691G>A) CLINICAL SENSITIVITY: 20-50 percent of individuals with an isolated VTE have the FVL variant. METHODOLOGY: Polymerase chain reaction and fluorescence monitoring. ANALYTICAL SENSITIVITY AND SPECIFICITY: 99 percent. LIMITATIONS: Diagnostic errors can occur due to rare sequence variations. F5 gene mutations, other than p.Bev436Vlv, will not be detected. This test was developed and its performance characteristics determined by [facility]. It has not been cleared or approved by the [place] Food and Drug Administration. This test was performed in a CLIA certified laboratory and is intended for clinical purposes. Counseling and informed consent are recommended for genetic testing. Consent forms are available online. Performed By: [facility] [address] [place] [id number] Consumer Relations Complaint Clerk: Harriett Martins MD FACV SPECIMEN Whole Blood Normal [facility] LUPUS ANTICOAGULANTon 2021 LUPUS ANTICOAGUL Negative Normal NEGATIVE [facility] Comment on above: Result Comment: BY H EXAGONAL PHASE PHOSPHOLIPID METHODOLOGY Performed By: #### 5 3017, 00836, 86423, 19939 #### [facility] [address] [place] [address], [facility] PROTEIN C ACTIVITYon 022 PROTEIN C ACTIV 110 % Normal 60-140 [facility] Comment on above: Performed By: #### 5 3017, 63232, 31495, 33456 #### [facility] [address] [place] [address], [facility] PROTEIN S ACTIVITYon 022 PROTEIN S ACTIV 81 % Normal 60-165 [facility] Comment on above: Performed By: #### 5 3017, 57713, 99862, 13678 #### [facility] [address] [facility]. [address] PROTHROMBIN (F2) [id number] 560 60on 10-06-2021 PROTHROMBIN FRET ( PCR AND FRET) Negative Normal [facility] Comment on above: Result Comment: Alem cation for testing: Assess genetic risk for thrombosis. NEGATIVE: The Factor II, prothrombin [id number] mutation, was not detected. Other causes of [...] M.D., Ph.D. 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 PATHOGENIC VARIANT TESTED: F2 c.*97G>A (Y74553Q). CLINICAL SENSITIVITY FOR VENOUS THROMBOSIS: Approximately 10 percent. METHODOLOGY: Polymerase chain reaction and fluorescence monitoring. ANALYTICAL SENSITIVITY AND SPECIFICITY: 99 percent. LIMITATIONS: Diagnostic errors can occur due to rare sequence variations. F2 gene variants, other than c.*97G>A (P98097H), will not be detected. This test was developed and its performance characteristics determined by [facility] [employer] [facility]. It has not been cleared or approved by the [place] Food and Drug Administration. This test was performed in a CLIA certified laboratory and is intended for clinical purposes. Counseling and informed consent are recommended for genetic testing. Consent forms are available online. Performed By: [facility] [address] [place] [id number] Consumer Relations Complaint Clerk: Harriett Martins MD PT PCR SPECIMEN Whole Blood Normal [facility] Cardiovascular Lab Reporton 11-19-2020 Cardiovascular Lab Report [facility] Patient Name: Marco Antonio Benitez [facility] Von MR #: [id number] Department of Physician: Donna Faith M.D. Division of Service Date: 11/18/2020 Cardiology Birthdate: 1955 Adult Cardiovascular Room #: [facility] [address] [facility]. [place] [address] Cardiovascular Laboratory Report FINAL IMPRESSIONS: 1. Severe, [...] the left radial artery was obtained. A 6-Bangladeshi 11 cm sheath was inserted without difficulty. [...] Fisher M.D. Date Trans: 11/19/2020 05:18 A/aidan [id number] cc: Annette Block M.D. [address] [place] [address] [place] [address] CARDIAC SCORING Addendum [...] INDICATION: Hyperlipidemia, unspecified. COMPARISON: None. ACCESSION NUMBER(S): [id number] ORDERING CLINICIAN: ANNETTE BLOCK TECHNIQUE: Using prospective [...] link below [email or web address] x Carroll zapien al. JACC 2014 (http://dx.doi.org/10. 1016/j.j acc.2015.08.035) Reading Folder Operator: Dr. Vaughn Park, Date: 10/24/2020 11:12 am Electronically signed by: MCKINLEY FARR MD [facility] Lower Ext/No Jt/w/oon 2017 Lower Ext/No Jt/w/o [facility] [facility] [place], [place] [address]Xuzuo Ext/No Jt/w/oMR#: [id number] Acct: [id number]: MARCO ANTONIO BENITEZ Rep #: [id number]: 1955 M 63 From: Vincent Grier MDPCP: OUT OF TOWN DOCTOR Status: REG CLIStudy: Lower Ext/No Jt/w/o Date of Exam: 06/10/18Exam# [id number] Ordering Dr: Erin MinayaADDENDUM by Dajuan Camejo [...] support , 12 1433Date cc: Erin Minaya DPM; OUT OF TOWN [...] 14:38 ESTTel , Service support , 12 1435Date cc: Erin Minaya DPM; OUT OF TOWN DOCTOR *SignedADDENDUM by Dajuan Camejo MD on 06/11/18 at 1438ORDER #: [id number] MRI/Lower Ext/No Jt/w/o108/12/17 1445Date cc: Erin Minaya DPM; OUT OF TOWN DOCTOR *SignedADDENDUM by Dajuan Camejo MD on 06/11/18 at 1438ORDER #: [id number] MRI/Lower Ext/No Jt/w/o108/12/17 1445Date cc: Erin Minaya [...] muscle.Normal subcutis adipose space. ORD ER #: [id number] MRI/Lower Ext/No Jt/w/oIMPRESSION:Posto perative changes are seen with fusion at the second tarsometatarsalarticul ation. 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 11-22-2023 13:24-0400 Body mass index (BMI) [Ratio] 32.8 kg/m2 Jevon Zambrano MD Work Phone: [facility] 11-22-2023 13:24-0400 Body weight 97.85 kg Jevon Zambrano MD Work Phone: [facility] 07-31-2023 09:03-0500 Body height 172.7 cm Yudy Gupta [employer] Work Phone: [facility] 07-31-2023 09:03-0500 Body mass index (BMI) [Ratio] 32.84 kg/m2 Yudy Iversonti [employer] Work Phone: [facility] 07-31-2023 09:03-0500 Body weight 97.98 kg Yudy Zayrati [employer] Work Phone: [facility] 07-31-2023 09:03-0500 Diastolic blood pressure 76 mm[Hg] Yudy Iversonti [employer] Work Phone: [facility] 07-31-2023 09:03-0500 Heart rate 74 /min Yudyita Iversonti [employer] Work Phone: [facility] 07-31-2023 09:03-0500 SaO2% (BldA) [Mass fraction] 96 % Yudy Iversonti [employer] Work Phone: [facility] [employer] 07-31-2023 09:03-0500 Systolic blood pressure 124 mm[Hg] Yudy Arellanoyousuf [employer] Work Phone: [facility] [employer] 03-05-2023 11:20-0400 Body height 172.72 cm Preston Tejada Other [employer] Other 03-05-2023 11:20-0400 Body mass index (BMI) [Ratio] 32.99 kg/m2 Preston Tejada Other [employer] Other 03-05-2023 11:20-0400 Body weight 98.43 kg Preston Tejada Other [employer] Other 03-05-2023 11:20-0400 Diastolic blood pressure 80 mm[Hg] Preston Tejada Other [employer] Other 03-05-2023 11:20-0400 Systolic blood pressure 126 mm[Hg] Preston Tejada Other [employer] Other 03-08-2022 12:40-0400 Body height 172.72 cm Preston Tejada Other [employer] Other 03-08-2022 12:40-0400 Body mass index (BMI) [Ratio] 36.94 kg/m2 Preston Tejada Other [employer] Other 03-08-2022 12:40-0400 Body weight 110.22 kg Preston Tejada Other [employer] Other 02-15-2022 12:30-0400 Body height 172.72 cm Annette Callaway II Other [employer] Other 02-15-2022 12:30-0400 Body mass index (BMI) [Ratio] 36.94 kg/m2 Annette Callaway II Other [employer] Other 02-15-2022 12:30-0400 Body weight 110.22 kg Annette Callaway II Other [employer] Other Encounters Encounter Date Encounter Type Care Provider Facility Start: 05-11-2024 End: 05-11-2024 Telephone encounter Jr. Yeimi Cardenas DO Work Phone: [facility] Comment on above: dentist Start: 04-22-2024 End: 04-22-2024 Bamboo flowsheet Jr. Yeimi Otero Stepanic DO Work Phone: [facility] Start: 04-22-2024 End: 04-22-2024 Bamboo flowsheet Jr. Yeimi Otero Stepanic DO Work Phone: [facility] Start: 04-22-2024 End: 04-22-2024 Office outpatient visit 25 minutes Jr. Yeimi Cardenas DO Work Phone: [facility] Comment on above: Internal derangement of right shoulder (Primary Dx) Start: 04-22-2024 End: 04-22-2024 ambulatory Giovany YEIMI Branden CARDENAS Not Available Start: 04-16-2024 End: 04-16-2024 ambulatory GiovanyYEIMIANDREW Not Available Start: 04-10-2024 End: 04-10-2024 Bamboo flowsheet Jr. Yeimi Otero Stepanic DO Work Phone: [facility] Start: 04-10-2024 End: 04-10-2024 Bamboo flowsheet Jr. Yeimi Otero Stepanic DO Work Phone: [facility] Start: 04-10-2024 End: 04-10-2024 Office outpatient visit 25 minutes Jr. Yeimi Haqanic DO Work Phone: [facility] Comment on above: Acute pain of right shoulder (Primary Dx); Internal derangement of right shoulder Start: 04-10-2024 End: 04-10-2024 ambulatory YEIMI RICHEY Not Available Start: 03-04-2024 End: 03-04-2024 Patient encounter procedure MD Annette Block Work Phone: [facility] Work Phone: Start: 03-04-2024 End: 03-04-2024 ambulatory MD Annette Block Work Phone: [facility] Work Phone: Start: 02-26-2024 End: 02-26-2024 ambulatory summer WORKMAN Not Available Start: 02-13-2024 End: 02-13-2024 ambulatory summer WORKMAN Not Available Start: 11-22-2023 End: 11-22-2023 ambulatory Jevon Zambrano [...] Provider MRI Q Start: 07-31-2023 End: 07-31-2023 Office outpatient visit 25 minutes Yudy Gupta NP Work Phone: [facility] Comment on above: Essential (primary) hypertension (CMS/HCC) (Primary Dx); Pure hypercholesterolemia (CMS/HCC); Prediabetes; Coronary artery disease involving algaaciq coronary artery of algaaciq heart without angina pectoris (CMS/HCC); Gastroesophageal reflux disease without esophagitis; Generalized anxiety disorder (CMS/HCC); Osteopenia of multiple sites; Primary insomnia; Primary osteoarthritis involving multiple joints; Factor V Leiden (CMS/HCC); Vitamin D deficiency; History of malignant neoplasm of prostate; Morbid obesity (CMS/HCC); BMI 32.0-32.9,adult Start: 07-31-2023 End: 07-31-2023 ambulatory ANNETTE BLOCK Not Available Start: 07-25-2023 Chart abstracting Annette nettles MD Work Phone: [facility] Start: 07-15-2023 End: 07-15-2023 ambulatory YEIMI RICHEY Not Available Start: 05-30-2023 End: 05-30-2023 ambulatory [facility] Start: 05-22-2023 End: 05-22-2023 ambulatory Jevon Zambrano MD Work Phone: Urology Comment on above: Prostate cancer (HCC ) (Primary Dx) Start: 05-22-2023 End: 05-22-2023 Telemedicine consultation with patient Jevon Zambrano MD Work Phone: [facility] Start: 03-05-2023 End: 03-05-2023 ambulatory Preston Tejada Other [facility] [employer] Other Start: 03-05-2023 Office outpatient vi sit 15 minutes Preston Tejada [facility] Start: 10-26-2022 End: 10-26-2022 ambulatory Mark Anthony Real MD Work Phone: Urology Comment on above: Prostate cancer (HCC ) (Primary Dx) Start: 10-26-2022 End: 10-26-2022 Telemedicine consultation with patient Mark Anthony Real MD Work Phone: [facility] Start: 10-03-2022 End: 10-04-[address] [...] 03-08-2022 End: 03-08-2022 ambulatory Preston Tejada Other [facility] [employer] Other Start: 03-08-2022 Office outpatient vi sit 15 minutes Preston Tejada [facility] Start: 03-07-2022 End: 03-07-2022 Patient encounter procedure MD Annette Block Work Phone: [facility] Start: 02-21-2022 Telephone encounter Mark Anthony garcia MD Work Phone: Urology Comment on above: Appointment Start: 02-15-2022 End: 02-15-2022 ambulatory Annette Langley II Other [facility] [employer] Other Start: 02-15-2022 Office outpatient ne w 45 minutes Annette Nilton II [facility] Start: 02-15-2022 End: 02-15-2022 Patient encounter procedure MD Annette Block Work Phone: [facility] [place] [facility] Start: 02-08-2022 End: 02-08-[address] ANNETTE BLOCK Facility:[facility] Start: 01-19-2022 End: 01-20-[address] ANNETTE BLOCK Facility:[facility] Start: 11-23-2021 End: 11-23-2021 ambulatory Hugo Garcia MD Work Phone: Urology Comment on above: Prostate cancer (HCC ) Start: 11-23-2021 End: 11-23-2021 Telemedicine consultation with patient Hugo Garcia MD Work Phone: [facility] Start: 11-06-2021 End: 11-07-2021 ambulatory RON MCCORMICK Facility:[facility] Start: 11-02-2021 End: 11-03-2021 ambulatory RON MCCORMICK Facility:[facility] Start: 10-27-2021 End: 10-27-2021 Subsequent hospital visit by physician Mri 6 Radio Main Q (I-Stat/1.5t/3t) Work Phone: MRI Q Comment on above: Malignant neoplasm o f prostate (HCC) [C61] Start: 10-11-2021 End: 10-12-[address] DOCTOR REVELES Facility:[facility] Start: 11-18-2020 End: 11-19-2020 ambulatory ANNETTE BLOCK Facility:[facility] Start: 06-10-2018 Patient encounter procedure Erin Jericho sana Facility:[facility] Start: 02-06-2017 Ambulatory ANNETTE [place] Facility:[id number] Start: 02-06-2017 Ambulatory Facility:[id number] Procedures Date Procedure Procedure Detail Performing Clinician Start: 04-10-2024 Radex shoulder compl ete minimum 2 views Jr. Yeimi Otero Stepanic DO Work Phone: Start: 03-04-2024 X-ray of lumbar spin e, four views MD Annette Block Work Phone: Start: 11-22-2023 Urnls dip stick/tabl et rgnt auto w/o microscopy Bulk Order Provider Start: 11-22-2023 3d rendering w/interp&postproc diff work station Jevon Zambrano MD Work Phone: Start: 11-22-2023 Mri pelvis w/o & w/contrast material Jevon Zambrano MD Work Phone: Start: 10-03-[address] ANNETTE BLOCK Comment on above: Performed By: #### P SAD #### [facility] [address] [place] [address] Dr. Chari Lantigua Start: 04-12-2022 Level iv surg pathol ogy gross&microscopic exam Hugo Garcia MD Work Phone: Start: 04-12-2022 Us transrct prstate vol brachytx plnning spx Hugo Garcia MD Work Phone: Start: 04-12-2022 Urnls dip stick/tabl et rgnt auto w/o microscopy Hugo Garcia MD Work Phone: Start: 04-11-[address] ANNETTE BLOCK Comment on above: Performed By: #### P SAD #### [facility] [address] [place] [address] Dr. Chari Lantigua Start: 03-07-2022 X-ray of [...] (2 - Td or Tdap) [facility] Start: 10-04-2027 PROSTATE CANCER SCREENING DISCUSSION PROSTATE CANCER SCREENING DISCUSSION [facility] Start: 10-04-2027 Prostate specific antigen measurement Prostate Cancer Screening Discussion [facility] Start: 04-15-2027 Screening for malignant neoplasm of colon [facility] Start: 01-28-2026 Glaucoma screening Diabetes: Retinopathy Screening [facility] Start: 02-12-2025 Medicare Annual Wellness (AWV) Medicare Annual Wellness (AWV) [facility] Start: 08-18-2024 End: 08-18-2024 Patient encounter procedure 08/18/2024 9:15 AM EST Office Visit [facility] [address] [place] [phone] Annette Block MD [address] [place] [address] [facility] Start: 07-30-2024 Urine screening for protein Diabetes: Urine Protein Screening [facility] Start: 07-22-2024 End: 07-22-2024 Patient encounter procedure 07/22/2024 8:00 AM EST [facility] [address] [place] [address] Jr. Yeimi Cardenas, DO [address] [place] [address] [facility] Start: 07-20-2024 End: 07-20-2024 [facility] Start: 04-24-2024 End: 04-24-2024 Patient encounter procedure 04/24/2024 9:00 AM EDT [facility] [address] [place] [address] Jr. Yeimi Cardenas, DO [address] [place] [address] [facility] Start: 04-22-2024 End: 04-22-2024 Patient encounter procedure 04/22/2024 8:00 AM EDT [facility] [address] [place] [phone] Jr. Yeimi Cardenas, DO [address] [place] [address] Arrived [facility] Comment on above: Arrived Start: 04-10-2024 End: 04-10-2025 MR Shoulder - right WO contrast MR shoulder right wo IV contrast Imaging Routine Internal derangement of right shoulder Expected: 04/10/2024 (Approximate), Expires: 04/10/2025 [facility] Work Phone: Comment on above: Expected: 04/10/2024 (Approximate), Expi res: 04/10/2025 Start: 04-10-2024 End: 04-10-2024 Patient encounter procedure 04/10/2024 11:00 AM EDT [facility] [address] [place] [phone] Jr. eYimi Cardenas, DO [address] [place] [address] Acute pain of right shoulder [facility] Comment on above: Acute pain of right shoulder Start: 02-23-2024 Influenza vaccination Influenza Vaccine (#1) [facility] Start: 02-13-2024 End: 02-13-2024 Patient encounter procedure 02/13/2024 9:15 AM EDT [facility] [address] [place] [phone] Annette Block MD [address] [place] [address] [facility] Start: 01-29-2024 End: 07-31-2024 25-hydroxyvitamin D3 [Mass/volume] in Serum or Plasma Vitamin D 25 hydroxy Lab Routine Vitamin D deficiency Expected: 01/29/2024 (Approximate), Expires: 07/31/2024 [facility] Comment on above: Expected: 01/29/2024 (Approximate), Expi res: 07/31/2024 Start: 01-29-2024 End: 07-31-2024 CBC W Auto Differential panel - Blood CBC and differential Lab Routine Essential (primary) hypertension (CMS/HCC) Expected: 01/29/2024 (Approximate), Expires: 07/31/2024 [facility] Work Phone: Comment on above: Expected: 01/29/2024 (Approximate), Expi res: 07/31/2024 Start: 01-29-2024 End: 01-29-2024 Comprehensive metabolic 2000 panel - Serum or Plasma Comprehensive metabolic panel Lab Routine Essential (primary) hypertension (CMS/HCC) Expected: 01/29/2024 (Approximate), Expires: 01/29/2024 [facility] Comment on above: Expected: 01/29/2024 (Approximate), Expi res: 01/29/2024 Start: 01-29-2024 End: 07-31-2024 Lipid 1996 panel - Serum or Plasma Lipid panel Lab Routine Pure hypercholesterolemia (CMS/HCC) Expected: 01/29/2024 (Approximate), Expires: 07/31/2024 [facility] Comment on above: Expected: 01/29/2024 (Approximate), Expi res: 07/31/2024 Start: 01-17-2024 DIABETES SCREEN DIABETES SCREEN [facility] Start: 01-17-2024 Diabetes Screening Diabetes Screening [facility] Start: 11-29-2023 End: 11-29-2023 ambulatory 11/29/2023 12:00 PM EDT Results Only [place] [address] [address] [place] [address] PSA/PROSTSPECAG DIAG [place] [address] [address] Comment on above: PSA/PROSTSPECAG DIAG Start: 11-20-2023 End: 06-20-2024 MRI PROSTATE WO/W IVCON MRI PROSTATE WO/W IVCON Radiology Routine Prostate cancer (HCC) Expected: 11/20/2023, Expires: 06/20/2024 [facility] Work Phone: Comment on above: Expected: 11/20/2023, Expires: Start: 11-20-2023 End: 02-19-2024 Prostate specific Ag [Mass/volume] in Serum or Plasma PSA/PROSTSPECAG DIAG Lab Routine Prostate cancer (HCC) Expected: 11/20/2023, Expires: 02/19/2024 [facility] Work Phone: Comment on above: Expected: 11/20/2023, Expires: Start: 08-15-2023 Covid-19 Vaccine ( season) Covid-19 Vaccine () 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 (CMS/HCC); Gastroesophageal reflux disease without esophagitis; Generalized anxiety disorder (CMS/HCC); Osteopenia of multiple sites; Primary insomnia; Primary osteoarthritis involving multiple joints; Factor V Leiden (CMS/HCC); Vitamin D deficiency; History of malignant neoplasm of prostate; Morbid obesity (CMS/HCC) [facility] Comment on above: Essential (primary) hypertension (CMS/HC C) (Primary Dx); Pure hypercholesterolemia (CMS/HCC); Prediabetes; 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 Start: 06-24-2023 Behavioral Health Screening Behavioral Health Screening [facility] Start: 04-28-2023 End: 10-27-2023 Prostate specific Ag [Mass/volume] in Serum or Plasma PSA/PROSTSPECAG DIAG Lab Routine Prostate cancer (HCC) Expected: 04/28/2023, Expires: 10/27/2023 [facility] Work Phone: Comment on above: Expected: 04/28/2023, Expires: Start: 10-19-2022 Hemoglobin A1c measurement Diabetes: Hemoglobin A1C [facility] Start: 10-19-2022 End: 12-19-2022 Prostate specific Ag [Mass/volume] in Serum or Plasma PSA/PROSTSPECAG DIAG Lab Routine Prostate cancer (HCC) Expected: 10/19/2022, Expires: 12/19/2022 [facility] Work Phone: Comment on above: Expected: 10/19/2022, Expires: 3 Start: 06-24-2022 ADVANCE DIRECTIVE DISCUSSION ADVANCE DIRECTIVE DISCUSSION [facility] Start: 06-24-2022 DEPRESSION ASSESSMENT DEPRESSION ASSESSMENT [facility] Start: 04-10-2022 End: 03-18-2023 Prostate specific Ag [Mass/volume] in Serum or Plasma PSA/PROSTSPECAG DIAG Lab Routine Prostate cancer (HCC) Expected: 04/10/2022 (Approximate), Expires: 03/18/2023 [facility] Work Phone: Comment on above: Expected: 04/10/2022 (Approximate), Expi res: 03/18/2023 Start: 02-22-2022 Influenza vaccination INFLUENZA (#1) [facility] Start: 01-16-2022 Pneumococcal Vaccine: 65+ (2 - PCV) Pneumococcal Vaccine: 65+ (2 - PCV) [facility] Start: 01-16-2022 Pneumococcal Vaccine: 65+ (2 of 2 - PCV) Pneumococcal Vaccine: 65+ (2 of 2 - PCV) [facility] Start: 01-16-2022 Pneumococcal Vaccine: 65+ Years (2 - PCV) Pneumococcal Vaccine: 65+ Years (2 - PCV) [facility] Start: 01-16-2022 Pneumococcal Vaccine: 65+ Years (2 of 2 - PCV) Pneumococcal Vaccine: 65+ Years (2 of 2 - PCV) [facility] Start: 06-24-2021 ADVANCE DIRECTIVE DISCUSSION ADVANCE DIRECTIVE DISCUSSION [facility] Start: 06-24-2021 DEPRESSION ASSESSMENT DEPRESSION ASSESSMENT [facility] Start: 06-10-2021 COVID-19 VACCINE (5 - Booster for Moderna series) COVID-19 VACCINE (5 - Booster for Moderna series) [facility] Start: 2021 Glaucoma screening Diabetes: Retinopathy Screening [facility] Start: 2020 PNEUMOCOCCAL: 65+ (1 - PCV) PNEUMOCOCCAL: 65+ (1 - PCV) [facility] Start: 2020 PNEUMOVAX AGE 65 AND OVER WITH 5YR LOOKBACK (#1) PNEUMOVAX AGE 65 AND OVER WITH 5YR LOOKBACK (#1) [facility] Start: 2015 RSV Vaccine (1 - 1-dose 60+ series) RSV Vaccine (1 - 1-dose 60+ series) [facility] Start: 2010 PROSTATE CANCER SCREENING DISCUSSION PROSTATE CANCER SCREENING DISCUSSION [facility] Start: 2005 SHINGRIX VACCINE (1 of 2) SHINGRIX VACCINE (1 of 2) [facility] Start: 01-23-2003 Diabetes Screening Diabetes Screening [facility] Start: 2000 COLOGUARD (FIT-DNA) COLOGUARD (FIT-DNA) [facility] Start: 2000 Colonoscopy COLONOSCOPY [facility] Start: 2000 COLORECTAL CANCER SCREENING COLORECTAL CANCER SCREENING [facility] Start: [address] COLONOGRAPHY [facility] Start: 2000 FECAL OCCULT BLOOD FECAL OCCULT BLOOD [facility] Start: 2000 Screening for malignant neoplasm of colon [facility] Start: 2000 SIGMOIDOSCOPY SIGMOIDOSCOPY [facility] Start: 1990 Lipid 1996 panel - Serum or Plasma Lipid Screening [facility] Start: 1990 Lipid panel Lipid Screening [facility] Start: 1990 LIPID SCREEN LIPID SCREEN [facility] Start: 1974 SHINGRIX VACCINE (1 of 2) SHINGRIX VACCINE (1 of 2) [facility] Start: 1974 Urine microalbumin profile DTAP,TDAP,TD (1 - Tdap) [facility] Start: 1973 HEPATITIS C SCREENING HEPATITIS C SCREENING [facility] Start: 1973 Hepatitis C screening Hepatitis C Screening [facility] Start: 1967 Adult depression screening assessment DEPRESSION SCREENING [facility] Start: 1961 PNEUMOCOCCAL: 65+ (1 - PCV) PNEUMOCOCCAL: 65+ (1 - PCV) [facility] Start: 1955 Screening for malignant neoplasm of colon [facility] End: 06-20-2024 MRI 3D POST PROCESSING MRI 3D POST PROCESSING Radiology Routine Prostate cancer (HCC) 1 Occurrences starting 05/22/2023 until 06/20/2024 [facility] Work Phone: Comment on above: 1 Occurrences starting 05/22/2023 until 06/20/2024 End: 11-21-2024 Prostate specific Ag [Mass/volume] in Serum or Plasma PROSTATE-SPECIFIC ANTIGEN DIAGNOSTIC Lab Routine Prostate cancer (HCC) Every 6 months for 3 Occurrences starting 11/22/2023 until 11/21/2024 [facility] Work Phone: Comment on above: Every 6 months for 3 Occurrences startin g 11/22/2023 until 11/21/2024 [facility] Immunizations Immunization Date Immunization Notes Care Provider Jamila kelly 04-08-2024 Seasonal trivalent influenza vaccine, adjuvanted, preservative free Jr. Stepanic DO Work Phone: [facility] 04-08-2024 influenza virus vacc ine, unspecified formulation Jr. Stepanic DO Work Phone: [facility] 05-26-2023 RSV, recombinant, pr otein subunit RSVpreF, adjuvant reconstitu, 120mcg/0.5mL, PF (Arexvy) Annette Block MD Work Phone: [facility] 04-14-2023 Influenza, Seasonal, Quadrivalent, Adjuvanted Annette Block MD Work Phone: [facility] 04-14-2023 SARS-COV-2 (COVID-19 ) vaccine, mRNA, spike protein, LNP, PF, wellington-sucrose, 30 mcg/0.3 mL Annette Block MD Work Phone: [facility] 04-14-2022 Influenza, Seasonal, Quadrivalent, Adjuvanted Annette Block MD Work Phone: [facility] 06-04-2021 zoster vaccine recombinant Adrian Block MD Work Phone: [facility] 04-02-2021 Influenza, Seasonal, Quadrivalent, Adjuvanted Annette Block MD Work Phone: [facility] 04-02-2021 zoster vaccine recombinant Adrian Block MD Work Phone: [facility] 03-28-2021 SARS-CoV-2, Unspecified Walt Block MD Work Phone: [facility] 01-16-2021 pneumococcal polysaccharide vaccine, 23 valent Annette Block MD Work Phone: [facility] 09-14-2020 SARS-CoV-2, Unspecified Jr. Stepanic DO Work Phone: [facility] 08-18-2020 SARS-CoV-2, Unspecified Jr. Stepanic DO Work Phone: [facility] 03-22-2020 influenza, injectabl e, quadrivalent, preservative free Annette Block MD Work Phone: [facility] 05-25-2019 influenza, injectabl e, quadrivalent, preservative free Annette Block MD Work Phone: [facility] 03-24-2018 influenza, seasonal, injectable, preservative free Jr. Stepanic DO Work Phone: [facility] 03-17-2018 influenza, injectabl e, quadrivalent, preservative free Annette Block MD Work Phone: [facility] 02-03-2018 tetanus toxoid, redu umang diphtheria toxoid, and acellular pertussis vaccine, adsorbed Annette Block MD Work Phone: [facility] 01-02-2017 zoster vaccine, live Annette Block MD Work Phone: [facility] 05-19-2016 influenza, seasonal, injectable, preservative free Jr. Stepanic DO Work Phone: [facility] Payers Date Payer Category Payer Medicare [id number] 2023 Private Health Insurance [employer] [id number] 2023 Medicare [id number] 2023 Unknown [id number] 2022 Unknown [id number] 2019 Unknown [id number] 2019 Unknown MMO MMO [employer] [id number] 2019-Present [phone] [address] [place] [address] PPO [id number]. [id number] 2019 Unknown [id number]. 1.13.159.2. [id number] 2018 Self-pay 2018 Unknown [id number] 1955 Unknown [id number] 2.16.840.1.230836.3.579.2. 647 1955 Unknown [id number] 2.16.840.1.800372.3.579.2. 593 1955 Unknown [id number] 2.16.840.1.120924.3.579.2. 593 1955 Unknown [id number] 2.16.840.1.078161.3.579.2. 593 1955 Unknown [id number] 2.16.840.1.574176.3.579.2. 593 1955 Unknown [id number] 2.16.840.1.009425.3.579.2. 593 1955 Unknown [id number] 2.16.840.1.536511.3.579.2. 593 1955 Unknown [id number] 2.16.840.1.756287.3.579.2. 593 1955 Unknown [id number] 2.16.840.1.276718.3.579.2. 593 1955 Unknown [id number] 2.16.840.1.975318.3.579.2. 593 1955 Unknown [id number] 2.16.840.1.992976.3.579.2. 1259 1955 Unknown [id number] 2.16.840.1.394635.3.579.2. 1259 1955 Unknown [id number] 2.16.840.1.744083.3.579.2. 1259 1955 Unknown [id number] 2.16.840.1.125403.3.579.2. 1259 1955 Unknown [id number] 2.16.840.1.216403.3.579.2. 1259 1955 Unknown [id number] 2.16.840.1.075492.3.579.2. 9 1955 Unknown [id number] 2.16.840.1.328572.3.579.2. 9 1955 Unknown [id number] 2.16.840.1.510174.3.579.2. 1259 1955 Unknown [id number] 2.16.840.1.947586.3.579.2. 1259 Unknown [id number] 2.16.840.1.642634.3.579.2. 462 Unknown [id number] 2.16.840.1.425311.3.579.2. 531 Social History Date Type Detail Facility Tobacco smoking status WIIS Tobacco smoking consumption unknown [facility] Work Phone: Start: 1955 Sex Assigned At Male [facility] Start: 10-17-2021 End: 04-12-2022 Exposure to SARS-CoV-2 (event) Not sure [facility] Start: 10-26-2022 End: 02-12-2024 Sex Assigned At [facility] Start: 04-07-2020 End: 11-20-2022 Tobacco smoking status NHIS Never smoked tobacco (finding) [facility] Start: 10-26-2022 End: 02-12-2024 History of Social function [facility] National Score (1-100), lower number is lower risk [address] [facility] Start: 09-03-2021 Gender identity Identifies as male gender (finding) [facility] Start: 11-20-2022 Tobacco use and exposure Smokeless tobacco non-user [facility] Start: 07-25-2023 End: 04-22-2024 Alcohol intake Current drinker of alcohol (finding) [facility] Start: 01-23-2023 Alcohol Comment Caffeine: 2 cups moo ly [facility] Start: 1955 Sex Assigned At Not on file N [facility] Medical Equipment Procedure Code Equipment Code Equipment Origin al Text Equipment Identifier Dates Arthroplasty, knee, total, minimally invasive ART SURF RT 10MM 10-12 [facility] FDA Start: 04-07-2020 Arthroplasty, knee, total, minimally invasive Orthopaedic cement, non-medicated ()[id number] FDA Start: 04-07-2020 Arthroplasty, knee, total, minimally invasive Uncoated knee femur prosthesis ()[id number] FDA Start: 04-07-2020 Arthroplasty, knee, total, minimally invasive Uncoated knee tibia prosthesis, metallic ()[id number] FDA Start: 04-07-2020 Arthroplasty, knee, total, minimally invasive Polyethylene patella prosthesis ()[id number] FDA Start: 04-07-2020 Arthroplasty, knee, total, minimally [...] FDA Start: 04-02-2018 Clinical Notes 10-27-2021 to 05-11-2024 Telephone Encounter - AYLIN Helm - 05/11/2024 8:41 AM ESTTelephone Encounter - AYLIN Helm - 05/11/2024 8:41 AM ESTTelephone Encounter - Varsha Gordillo - 05/11/2024 8:30 AM EST Note Date & Type Note Facility 05-11-2024 Telephone encounter Note Spoke with .. answered questions.. does not need antibiotic to get new crown cemented on, no drilling or work to gum/ teeth [facility] Work Phone: 05-11-2024 Miscellaneous Notes Spoke with .. answered questions.. does not need antibiotic to get new crown cemented on, no drilling or work to gum/ teeth Patient's called regarding his upcoming dentist appointment. Patient already took antibiotic for the crown, he has to go back for the second part. They want to know if he needs the antibiotic for this. The dentist does not believe he does. They do already have the antibiotic from the dentist from before if needed. Please advise [phone]. documented in this encounter [facility] 05-11-2024 Telephone encounter Note Patient's called regarding his upcoming dentist appointment. Patient already took antibiotic for the crown, he has to go back for the second part. They want to know if he needs the antibiotic for this. The dentist does not believe he does. They do already have the antibiotic from the dentist from before if needed. Please advise [phone]. [facility] 04-22-2024 History of Present illness Narrative Images from the original note were not included. HISTORY OF PRESENT ILLNESS: EST PT Marco Antonio Benitez is an 68 y.o. @ male. (EST PT) RECHECK (R) SHOULDER ; HERE FOR MRI RESULTS 04/16/24 IN [facility] XRAYS, 04/10/24 IN [facility] MRI, 04/16/24 IN [facility] NO MDP / PREDNISONE NO CORTISONE INJ NO PHYSICAL THERAPY NO PAIN MGMT STATES SYMPTOMS ARE IMPROVING / INCREASED ROM. CONTINUES TO HAVE SOME DISCOMFORT WITH CERTAIN MOVEMENTS ; POSTERIOR ASPECT. DENIES ANY RADIATING PAIN, NO N/T. TAKING DICLOFENAC BID / TYLENOL PRN - SOME RELIEF. ALLERGIES: No Known Allergies HOME MEDICATIONS: Current Outpatient Medications Medication Instructions acetaminophen (Tylenol Extra Strength) 500 MG tablet Every 6 hours ALPRAZolam (XANAX) 0.5 mg, Oral, 2 times daily PRN aspirin 81 mg, Oral, Daily atorvastatin (LIPITOR) [...] XL (TOPROL XL) 25 mg, Oral, Daily omeprazole (PRILOSEC) 20 mg, Oral, Daily Ozempic (0.25 or 0.5 MG/DOSE) 0.5 mg, Subcutaneous, Weekly polyethylene glycol (PEG) 3350 (MIRALAX) 17 g, Oral, Daily PRN sildenafil (VIAGRA) 100 mg, Oral, Daily PRN triamcinolone (Kenalog) 0.1 % cream APPLY TO LOWER LEGS TWICE DAILY UNTIL CLEAR, THEN USE NEEDED FOR ITCH zolpidem (AMBIEN) 5 mg, Oral, Nightly PRN PHYSICAL EXAM: Shoulder Musculoskeletal Exam Inspection Right Right shoulder inspection is normal. Ecchymosis: none Peripheral edema: none Atrophy: none Masses: none Palpation Right Crepitus: no crepitus Increased warmth: none Tenderness: present Anterior shoulder: mild AC joint: mild Lateral arm: mild Range of Motion Right Right shoulder range of motion is normal. Active ROM: normal and pain. Active ROM comment: pain has decreased from prior examination. Passive ROM: pain. Strength Right External rotation: 5/5. Internal rotation: 5/5. Abduction: 5/5. Biceps: 5/5. Triceps: 5/5. Neurovascular Right Radial pulse: normal and 2+ Capillary refill: <3 sec Axillary nerve sensory distribution: normal Scapula Right Right shoulder scapula is normal. Position: normal Winging: none Special Tests Right Rotator Cuff Signs Neer's test: positive Winters test: positive Supraspinatus: positive Painful arc test: positive Drop arm test: positive Biceps/freddy Signs Speed's test: negative Vitals: There is no height or weight on file to calculate BMI. Tobacco Use: Low Risk (04/22/2024) Patient History Smoking Tobacco Use: Never Smokeless Tobacco Use: Never Passive Exposure: Not on file Alcohol Use: Not on file IMAGING: Procedures No orders of the defined types were placed in this encounter. ASSESSMENT: ICD-10-CM 1. Internal derangement of right shoulder M24.811 PLAN: We have answered all the patients questions and explained the patients condition, decision making and plan including the risks and benefits associated with said plan in layman''s terms in a language the patient could understand easily. If patient''s symptoms significantly worsen and they cannot get a hold of us or their family physician, we have recommended that the patient proceed to the nearest emergency department (room). Dr. Cardenas obtained history and examined the patient, I am acting as scribe for Dr. Cardenas/sp, PLAN: We have reviewed prior (R) shoulder xrays and discussed (R) shoulder MRI results with patient at bedside : Small infraspinatus tear with biceps tendinitis. Patient is pleased with his right shoulder progress as he feels he is functioning too well at this time to entertain the thought of a cortisone injection / surgical intervention. We have discussed avoiding motions including, but not limited to : no fast / aggressive motions, repetitive overhead activity. We have discussed his HEP and restrictions and will see him back in 3 months to reassess his right shoulder strength / ROM, if exam warrants we may recommend cortisone injections / formal physical therapy. Yeimi Cardenas D.O. documented in this encounter [facility] 04-10-2024 History of Present illness Narrative Images from the original note were not included. HISTORY OF PRESENT ILLNESS: EST PT Marco Antonio Benitez is an 68 y.o. @ male. (EST PT) NEW COMPLAINT, (R) SHOULDER DISCOMFORT. SYMPTOMS BEGAN 03/27/24 (2 WKS) - DENIES ANY INJURY XRAYS DONE TODAY, 04/10/24 IN [facility] NO MRI NO MDP / PREDNISONE NO CORTISONE INJ NO PHYSICAL THERAPY NO PAIN MGMT NOTES CONSTANT DISCOMFORT - STATES SYMPTOMS ARE GETTING BETTER. PAIN IS MOSTLY POSTERIOR. NOTES LIMITED ROM - DIFFICULTY WITH ABDUCTIONS. SOME WEAKNESS WHEN LIFTING. DENIES ANY RADIATING PAIN, NO N/T. TAKING DICLOFENAC BID / TYLENOL PRN - SOME RELIEF. ALLERGIES: No Known Allergies HOME MEDICATIONS: Current Outpatient Medications Medication Instructions acetaminophen (Tylenol Extra Strength) 500 MG tablet Every 6 hours ALPRAZolam (XANAX) 0.5 mg, Oral, 2 times daily PRN aspirin 81 mg, Oral, Daily atorvastatin (LIPITOR) [...] XL (TOPROL XL) 25 mg, Oral, Daily omeprazole (PRILOSEC) 20 mg, Oral, Daily Ozempic (0.25 or 0.5 MG/DOSE) 0.5 mg, Subcutaneous, Weekly polyethylene glycol (PEG) 3350 (MIRALAX) 17 g, Oral, Daily PRN sildenafil (VIAGRA) 100 mg, Oral, Daily PRN triamcinolone (Kenalog) 0.1 % cream APPLY TO LOWER LEGS TWICE DAILY UNTIL CLEAR, THEN USE NEEDED FOR ITCH zolpidem (AMBIEN) 5 mg, Oral, Nightly PRN PHYSICAL EXAM: Shoulder Musculoskeletal Exam Inspection Right Right shoulder inspection is normal. Ecchymosis: none Peripheral edema: none Atrophy: none Masses: none Palpation Right Crepitus: no crepitus Increased warmth: none Tenderness: present Anterior shoulder: mild AC joint: mild Lateral arm: mild Range of Motion Right Right shoulder range of motion is normal. Active ROM: pain. Passive ROM: pain. Right shoulder active abduction: + pain passing 90 degrees. Strength Right External rotation: 5/5. Internal rotation: 5/5. Abduction: 5/5. Biceps: 5/5. Triceps: 5/5. Neurovascular Right Radial pulse: normal and 2+ Capillary refill: <3 sec Axillary nerve sensory distribution: normal Scapula Right Right shoulder scapula is normal. Position: normal Winging: none Special Tests Right Rotator Cuff Signs Neer's test: positive Winters test: positive Supraspinatus: positive Painful arc test: positive Drop arm test: positive Biceps/freddy Signs Speed's test: negative Vitals: There is no height or weight on file to calculate BMI. Tobacco Use: Low Risk (04/10/2024) Patient History Smoking Tobacco Use: Never Smokeless Tobacco Use: Never Passive Exposure: Not on file Alcohol Use: Not on file IMAGING: XR shoulder 2+ views right Imaging Result: Imaging Result: scapular Y and AP x-rays of right shoulder showed humeral head to be well centered in the glenoid fossa. There was no evidence of subluxation or dislocation. Acromioclavicular joint appeared to have global degenerative changes with decreased joint space and marginal osteophytic formation. There was no acute bony process including but not limited to fracture and/or dislocation. Impression: Unremarkable right shoulder moderate acromioclavicular degenerative joint disease. Procedures Orders Placed This Encounter Procedures XR shoulder 2+ views right Order Specific Question: Reason for exam: Answer: PAIN MR shoulder right wo IV contrast Standing Status: Future Standing Expiration Date: 04/10/2025 Scheduling Instructions: Noms ; Please call patient to schedule, thank you. Order Specific Question: Reason for exam: Answer: r/o rotator cuff tear ASSESSMENT: ICD-10-CM 1. Acute pain of right shoulder M25.511 XR shoulder 2+ views right Ambulatory referral to Orthopaedic Surgery 2. Internal derangement of right shoulder M24.811 MR shoulder right wo IV contrast PLAN: We have answered all the patients questions and explained the patients condition, decision making and plan including the risks and benefits associated with said plan in layman''s terms in a language the patient could understand easily. If patient''s symptoms significantly worsen and they cannot get a hold of us or their family physician, we have recommended that the patient proceed to the nearest emergency department (room). Dr. Cardenas obtained history and examined the patient, I am acting as scribe for Dr. Cardenas/sp, PLAN: We have discussed (R) shoulder xrays with patient (and ) at bedside. After examination of his right shoulder today we are recommending a MRI to r/o a rotator cuff tear. We have discussed avoiding motions including, but not limited to : no fast / aggressive motions and avoid carrying heavy objects away from body. We have discussed his HEP and restrictions and will see him back in 2 weeks to discuss (R) shoulder MRI results. Yeimi Cardenas D.O. documented in this encounter [facility] 11-22-2023 History of Present illness Narrative REASON [...] MD documented in this encounter [facility] 11-22-2023 Note HNO ID: [id number] Author: JEVON ZAMBRANO MD Service: ? Author [...] - No malignancy. 3 cores of CHIRAG. 08/25/2020:Anderson 3+3, 2/12 cores 05/28/2019: Anderson 3+3=6, 1/12 cores PSA today: 11/15/23 - [...] up in 1 year Jevon Zambrano MD [facility] 11-22-2023 History of Present illness Narrative Radiology [...] Glenda Basilio RN PATIENT NAME: Marco Antonio Benitze DATE: November 22, 2023 TIME: 11:22 AM [...] PATIENT PRESENTS WITH AN IMPLANTABLE OR ATTACHED ARC CUTTER PLASMA ARC: No RADIOLOGY DEPARTMENT: MR; Exam(s) Completed: Body: Prostate PERIPHERAL IV DATA: Site assessment: Clean,Dry and Intact, Site disposition Discontinued SIGNED BY: RT Ar(R)Em November 22, 2023 11:51 AM documented in this encounter [address]31-2024 Note HNO ID: [id number] Author: CHRISTOPHER LACKYE RT(R) Service: Radiology Author Type: Technologist Type: Progress [...] PATIENT PRESENTS WITH AN IMPLANTABLE OR ATTACHED ARC CUTTER PLASMA ARC: No RADIOLOGY DEPARTMENT: MR; Exam(s) Completed: Body: Prostate PERIPHERAL IV DATA: Site assessment: Clean,Dry and Intact, Site disposition Discontinued SIGNED BY: RT Ar(R), Em BARRERA November 22, 2023 11:51 AM [facility] 11-22-2023 Note HNO ID: [id number] Author: GLENDA BASILIO RN Service: Nursing Author [...] DATE: November 22, 2023 TIME: 11:22 AM [facility] 11-22-2023 Note Patient Outreach (UR OLMN) MARCO ANTONIO BENITEZ ([id number]) 1955 M Date Time Provider Department 11/22/23 JEVON ZAMBRANO During your visit today, we recorded the following information about you: Allergies As of Date: 11/22/2023 (No Known Allergies) Date Reviewed: 11/22/2023 Reviewed by: Jevon Zambrano MD - Fully Assessed Visit Diagnosis:Screening for genitourinary condition [Z13.89] Order(s):URINALYSIS, REFLEX MICROSCOPIC [[id number]] Order #: [id number]. #:[id number] Prescriptions as of 11/25/2023 - atorvastatin (LIPITOR) [...] cancer (HCC) [C61] 11/23/2021 Encounter Status:Closed by Selo Reserva PRODUSER on 11/25/23 [facility] 07-31-2023 History of Present illness Narrative Marco Antonio Beintez is a 68 y.o. male presents with chief complaint of 6 Month Follow-up HPI: Review lab drawn 07/30/2023. He continues to take Ozempic which was increased at last OV. He has seen ortho, Dr. Cardenas for right knee pain (hx TKA). He had x-rays 07/15/2023. Patient reports he may need a left knee replacement. He follows with [facility] every 6 months and they are [...] hammertoe repair TOTAL KNEE ARTHROPLASTY Right VASECTOMY 1998 FAMILY HISTORY: Family History Problem Relation Name [...] Oral, Daily Cholecalciferol (Vitamin D) 50 MCG (1999) capsule 1 capsule, Oral, Daily diclofenac (Voltaren) [...] ASSESSMENT AND PLAN: 1. Essential (primary) hypertension ([facility]/HCC) Doing well. Blood pressures have been good. [...] to diabetes. 4. Coronary artery disease involving algaaciq coronary artery of algaaciq heart without angina pectoris (CMS/HCC) Doing well. [...] getting PSA checked regularly. 13. Morbid obesity (CMS/HCC) Encouraged to eat a healthy diet and exercise regularly. 14. BMI 32.0-32.9,adult As above. Dr. Block was present in the office at the time of visit today and is supervising patient care. I am following Dr. Block's established plan of care for the above issues. documented in this encounter [facility] 05-30-2023 Note [facility] Cardiology Clinic Note Chief Complaint: Patient here [...] history of Coronary artery disease, Diabetes mellitus ([facility]), Factor V Leiden ([facility]), Family history of premature CAD, Family history [...] Coronary atherosclerosis I25.10: Atherosclerotic heart disease of algaaciq coronary artery without angina pectoris 2. Abnormal findings diagnostic imaging heart+coronary circulat - Abnormal calcium score 99th percentile for age and gender and race R93.1: Abnormal findings on diagnostic imaging of heart and coronary circulation 3. Factor V Leiden mutation D68.51: Activated protein C resistance FACTOR V LEIDEN: CARE INSTRUCTIONS we will refer to [facility] hematology given history of 2 venous thromboembolic events; especially with his factor V Leiden deficiency; did not recommend lifelong anticoagulation 4. Dysli (more content not included)... [facility] 05-22-2023 Note HNO ID: [id number] Author: Jevon Zambrano MD Service: ? Author Type: Physician Type: Progress Notes Filed: 05/22/2023 4:58 PM Note Text: VIRTUAL VISIT PROGRESS NOTE This is a virtual visit using [employer] Video Visit. It required patient-provider interaction for the medical decision making as documented below. I have communicated my name and active licensure. The patient's identity and physical location were verified at the time of this visit. Either the patient or their legal medical service representative has been informed of the risks [...] - No malignancy. 3 cores of CHIRAG. 08/25/2020:Anderson 3+3, 2/12 cores 05/28/2019: Anderson 3+3=6, 1/12 cores PSA today: 10/29/2022 - [...] with follow up after Jevon Zambrano MD [facility] 05-22-2023 History of Present illness Narrative VIRTUAL VISIT PROGRESS NOTE This is a virtual visit using [employer] Zoom Video Visit. It required patient-provider interaction for the medical decision making as documented below. I have communicated my name and active licensure. The patient's identity and physical location were verified at the time of this visit. Either the patient or their legal medical service representative has been informed of the risks [...] - No malignancy. 3 cores of CHIRAG. 08/25/2020:Anderson 3+3, 2/ cores 05/28/2019: Anderson 3+3=6, 1/12 cores PSA today: 10/29/2022 - [...] MD documented in this encounter [facility] 03-05-2023 Evaluation note Encounter Date [...] History of lumbar fusion (ICD-10 - Z98.1) [facility] Other 05-05-2023 History of Present illness Narrative* Mark Anthony Real MD - 10/26/2022 10:30 AM EDT REASON FOR VISIT: Follow up for Adenocarcinoma of Prostate I have communicated my name and active licensure. The patient's identity and physical location wereverified at the time of this visit. Either the patient or their legal medical service representative has been informed of the risks and benefits of -- and alternatives to -- treatment through a remote evaluation andconsents to proceed with the evaluation remotely. HPI: 67 year old male with prostate cancer on . Prostate Biopsies: 04/12/22 - No malignancy. 3 cores of CHIRAG. 08/25/2020:Anderson 3+3, 2/ cores 05/28/2019: Anderson 3+3=6, 1/ cores PSA today: 10/03/2022 - 1.15 03/2022 [...] 1 tablet by mouth once daily. multivit-mins/iron/folic/lycop (MV,CA,VDX-SBZB-HE-LYCOPENE ORAL) Take 1 tablet by mouth once [...] 5:28 PM [facility] Miscellaneous Notes* Telephone Encounter - Mark Anthony Real MD - 04/20/2022 2:37 PM EDT I spoke with MrGiovany And Mrs. Benitez. Biopsy results are favorable. No malignancy noted. 3 cores of CHIRAG. We will continue with and recheck PSA in 6 months. Mark Anthony Real MD Department of Urology [employer] Laparoscopy Fellow [facility] History of Present illness Narrative* Kim Saeed [...] Kim Saeed RN T documented in this [facility]10-20-2022 Nurse Note* Kim Saeed RN - 04/12/2022 [...] This Education Session: None Instruction Provided To:Patient Supervisor Dried Yeast Present: not applicable Discipline: Nursing Learning Topic: Survival Skills: Complication Prevention Symptom Management Patient Evaluation: Verbalizes understanding: Yes Supplemental Material Given: Written Material Instructed By Kim Saeed RN In Department Urology . 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 MRI [...] reconstruction of the prostate gland using the [employer] system. Trans-rectal ultrasound with a guide was [...] 14, 2022, documented in this encounterUniversity [facility]als [facility] Evaluation note* Encounter Date Diagnosis [...] History of lumbar fusion (ICD-10 - Z98.1) [facility] Other 08-31-2022 Miscellaneous Notes* Telephone Encounter - [...] Laparoscopy Fellow documented in this encounterUniversity Hospitals St. [facility]08-[facility] Evaluation note* Encounter Date Diagnosis [...] follow-up with me on an as-needed basis. [facility] Other 06-02-2022 History of Present illness Narrative* Hugo Garcia MD - 11/23/2021 11:45 AM EDT VIRTUAL VISIT PROGRESS NOTE This is a virtual visit using Tellja video visit. It required patient-provider interaction for the medical decision making as documented below. REASON FOR VISIT: Follow up for Adenocarcinoma of Prostate HPI: 66 year old male with prostate cancer on active surveillance for Anderson 3+3 disease. His lastMRI October 2021 showed a PIRADS 3 lesion. Last PSA in August 2021 was 0.8. Prostate Biopsies: 08/25/2020:Anderson 3+3, 2/12 cores 05/28/2019: Nina 3+3=6, 1/12 [...] 1 tablet by mouth once daily. multivit-mins/iron/folic/lycop (MV,CA,JGO-CTBZ-NO-LYCOPENE ORAL) Take 1 tablet by mouth once [...] August 2021 was 0.8. 1) Prostate cancer, Anderson 3+3 disease 2) MRI 0.8 CM LEFT MID ANTERIOR TRANSITION ZONE PI-RADS 3 LESION PLAN: 1) PSA in 6 months 2) TP Prostate Biopsy in 6 months with nitrous gas Scribe Attestation: By signing my name below, Candice Hooks, attest that this documentation has been prepared under the direction and in the presence of Hugo Garcia M.D. Electronically Signed: Phong Busch. November 23, 2021 12:02 PM Provider Attestation: Dr. Hugo Hooks personally performed the services described in this [...] MD I spent more than 30 minutes [id number] with the patient and over half the time was devoted to counseling and/or coordination of care. documented in this encounterUniversity Hospitals St. [facility]05-12-2022 NotePROCEDURE: XR ANKLE LT MIN [...] Electronically authenticated by: KEN REGAN Date: 2021-11-02 11:06[facility]05-12-2022 NotePROCEDURE: XR ANKLE LT MIN 3 [...] Electronically authenticated by: KEN REGAN Date: 2021-11-02 11:06[facility]05-12-2022 NotePROCEDURE: XR FOOT RT MIN 3 [...] Electronically authenticated by: KEN REGAN Date: 2021-11-02 10:41[id number] History of Present illness Narrative* Annette Gar [...] 2021 TIME: 8:58 AM [facility]* Diagnosis Malignant neoplasm of prostate (HCC) Malignant neoplasm of prostate [facility]* Diagnosis Prostate cancer (HCC) Malignant neoplasm of prostate documented in this encounter [facility] noteNo assessment information availableGreen Cross [facility] Work Phone: Evaluation note* Diagnosis Prostate cancer (HCC)- Primary Malignant neoplasm of prostate documented in this encounter [facility]* Diagnosis Prostate cancer (HCC)- Primary Malignant neoplasm of prostate [facility]* Diagnosis Elevated PSA- Primary Elevated prostate specific antigen (PSA) documented [facility] this encounter [facility]* Diagnosis Prostate cancer (HCC)- Primary Malignant neoplasm of prostate documented in this encounter [facility]* Diagnosis Prostate cancer (HCC)- Primary Malignant neoplasm of prostate [facility] Essential (primary) hypertension (CMS/HCC)- Primary Unspecified essential hypertension Pure hypercholesterolemia (CMS/HCC) Pure hypercholesterolemia Prediabetes Other abnormal glucose Coronary artery disease involving algaaciq coronary artery of algaaciq heart without angina pectoris (CMS/HCC) Gastroesophageal reflux [...] obesity BMI 32.0-32.9,adult documented in this encounter [facility]* Diagnosis Prostate cancer (HCC)- Primary Malignant neoplasm of prostate Elevated PSA Elevated prostate specific antigen (PSA) documented in this encounter [facility]* Diagnosis Prostate cancer (HCC) Malignant neoplasm of prostate documented in this encounter [facility]* Diagnosis Screening for genitourinary condition Screening for other and unspecified genitourinary condition documented in this encounter [facility]* Diagnosis Acute pain of right shoulder- Primary Internal derangement of right shoulder documented in this encounter [facility] HealthcareEvaluation note* Diagnosis Internal derangement of right shoulder- Primary documented in this encounter [facility] HealthcareHistory general Narrative - Reported* Type Description Date Medical History Blood clots Medical History factor V Surgical History hammertoe repair Surgical History vasectomy Surgical History hammer toe Surgical History vasectomy 1997 Surgical History colonoscopy 2009 Surgical History fusion, lisfranc fracture aleks Quarles 05/2016 Surgical History EGD/Colonoscopy (normal- corporate intern al hemorrhoids) 04/15/17 Surgical History PLIF (posterior lumbar interbod y fusion) 04/02/18 Surgical History Right Knee Replacement 2020 Hospitalization History see above [facility] Other Summary Purpose Family History Relationship Condition Age at Onset Recorded Date/T rosa father Sick sinus syndrome Unknown Not Specified Malignant neoplasm of colon Unknown brother Malignant neoplasm of throat Unknown brother Heart disease Unknown brother History of heart surgery Unknown Heart disease Unknown sister Fibromyalgia Unknown Hypertension Unknown Relationship Condition Age at Onset Recorded Date/T rosa father Sick sinus syndrome Unknown mother Malignant neoplasm of colon Unknown brother Malignant neoplasm of throat Unknown brother Heart disease Unknown brother History of heart surgery Unknown Heart disease Unknown sister Fibromyalgia Unknown Hypertension Unknown brother Malignant neoplasm Unknown father Heart disease Unknown History of stroke Unknown Unknown mother Malignant neoplasm Unknown Advance Directives Advance Directive Response Recorded Date/ Time Advance Directives Yes April 07, 2018 2:27pm Reason for Referral Specialty Diagnoses / Procedures Referred By Genesis t Referred To Contact MR IMAGING Diagnoses Malignant neoplasm of prostate (HCC) Procedures MRI PROSTATE WO/W IVCON MRI PELVIS W/WO CONTRAST Navin Redman MD [address] [place] [address] Mr Imaging Referral ID Status Reason Start Date Expiration Date V isits Requested Visits Authorized [id number] Closed Auto-Generate d Referral 10/02/2021 11/06/2021 1 1 Specialty Diagnoses / Procedures Referred By Genesis t Referred To Contact MR IMAGING Diagnoses Prostate cancer (HCC) Procedures MRI 3D POST PROCESSING 3D RENDERING W/INTERP&POSTPROC DIFF WORK STATION Jevon Zambrano MD [address] [place] [address] Mr Imaging [place] [address] Referral ID Status Reason Start Date Expiration Date Visits Requested Visits Authorized [id number] Pending Review Auto-Generat ed Referral 06/20/2024 1 1 Specialty Diagnoses / Procedures Referred By Genesis marcos Referred To Contact MR IMAGING Diagnoses Prostate cancer (HCC) Procedures MRI PROSTATE WO/W IVCON MRI PELVIS W/O & W/CONTRAST MATERIAL Jevon Zambrano MD [address] [place] [address] Mr Imaging [place] [address] Referral ID Status Reason Start Date Expiration Date Visits Requested Visits Authorized [id number] Pending Review Auto-Generat ed Referral 11/20/2023 06/20/2024 1 1 Referral ID Status Reason Start Date Expiration Date V isits Requested Visits Authorized [id number] Closed Auto-Generate d Referral 05/22/2023 06/20/2024 1 1 Referral ID Status Reason Start Date Expiration Date V isits Requested Visits Authorized [id number] Closed Auto-Generate d Referral 11/20/2023 06/20/2024 1 1 Chief Complaint and Reason for Visit Chief Complaint M25.562 Chief Complaint M25.562 m43.16 Chief Complaint m43.16 Medications Administered Section Inactive Administered Medications [...] section and content) DATE CREATED AUTHOR 12/18/2017 [facility] DATE CREATED AUTHOR AUTHOR'S ORGANIZ ATION 12/18/2017 [facility] DATE CREATED AUTHOR AUTHOR'S ORGANIZ ATION 06/14/2018 [facility] DATE CREATED AUTHOR AUTHOR'S ORGANIZ ATION 10/26/2020 [facility] DATE CREATED AUTHOR AUTHOR'S ORGANIZ ATION 10/13/[address] [facility] DATE CREATED AUTHOR AUTHOR'S ORGANIZ ATION 10/08/2022 [facility] DATE CREATED AUTHOR AUTHOR'S ORGANIZ ATION 06/01/2023 [facility] DATE CREATED AUTHOR AUTHOR'S ORGANIZ ATION 11/26/2023 [facility] DATE CREATED AUTHOR AUTHOR'S ORGANIZ ATION 03/06/2024 [facility] DATE CREATED AUTHOR AUTHOR'S ORGANIZ ATION 04/23/2024 [facility] EPIC Source Comments (unrecognize d section and content) In the event this informatio n is protected by the Federal Confidentiality of Alcohol and Drug Abuse Patient Records regulations: The Federal rules restrict any use of the information to criminally investigate or prosecute any alcohol or drug abuse patient.[facility] CenterIn the event this information is protected by the Federal Confidentiality of Alcohol and Drug Abuse Patient Records regulations: The Federal rules restrict any use of the information to criminally investigate or prosecute any alcohol or drug abuse patient.[facility] CenterIn the event this information is protected by the Federal Confidentiality of Alcohol and Drug Abuse Patient Records regulations: The Federal rules restrict any use of the information to criminally investigate or prosecute any alcohol or drug abuse patient.[facility] CenterIn the event this information is protected by the Federal Confidentiality of Alcohol and Drug Abuse Patient Records regulations: The Federal rules restrict any use of the information to criminally investigate or prosecute any alcohol or drug abuse patient.[facility] CenterIn the event this information is protected by the Federal Confidentiality of Alcohol and Drug Abuse Patient Records regulations: The Federal rules restrict any use of the information to criminally investigate or prosecute any alcohol or drug abuse patient.[facility] CenterIn the event this information is protected by the Federal Confidentiality of Alcohol and Drug Abuse Patient Records regulations: The Federal rules restrict any use of the information to criminally investigate or prosecute any alcohol or drug abuse patient.[facility] CenterIn the event this information is protected by the Federal Confidentiality of Alcohol and Drug Abuse Patient Records regulations: The Federal rules restrict any use of the information to criminally investigate or prosecute any alcohol or drug abuse patient.[facility] CenterIn the event this information is protected by the Federal Confidentiality of Alcohol and Drug Abuse Patient Records regulations: The Federal rules restrict any use of the information to criminally investigate or prosecute any alcohol or drug abuse patient.[facility] CenterIn the event this information is protected by the Federal Confidentiality of Alcohol and Drug Abuse Patient Records regulations: The Federal rules restrict any use of the information to criminally investigate or prosecute any alcohol or drug abuse patient.[facility] CenterIn the event this information is protected by the Federal Confidentiality of Alcohol and Drug Abuse Patient Records regulations: The Federal rules restrict any use of the information to criminally investigate or prosecute any alcohol or drug abuse patient.[facility] CenterIn the event this information is protected by the Federal Confidentiality of Alcohol and Drug Abuse Patient Records regulations: The Federal rules restrict any use of the information to criminally investigate or prosecute any alcohol or drug abuse patient.[facility] CenterIn the event this information is protected by the Federal Confidentiality of Alcohol and Drug Abuse Patient Records regulations: The Federal rules restrict any use of the information to criminally investigate or prosecute any alcohol or drug abuse patient.[facility] Reason for Visit (unrecogniz ed section and content) Reason Comments Radiology MRI Specialty Diagnoses / Procedures Referred By Contac t Referred To Contact MR IMAGING Diagnoses Malignant neoplasm of prostate (HCC) Procedures MRI PROSTATE WO/W IVCON MRI PELVIS W/WO CONTRAST Navin Redman MD [address] [place] [address] Mr Imaging Referral ID Status Reason Start Date Expiration Date V isits Requested Visits Authorized [id number] Closed Auto-Generate d Referral 10/02/2021 11/06/2021 1 [...] W/O & W/CONTRAST MATERIAL Jevon Zambrano MD [address] [place] [address] Mr Imaging [place] [address] Referral ID Status Reason Start Date Expiration Date V isits Requested Visits Authorized [id number] Closed Auto-Generate d Referral 11/20/2023 06/20/2024 1 1 Reason Comments Pain Specialty Diagnoses / Procedures Referred By Contac t Referred To Contact Orthopaedic Surgery Diagnoses Acute pain of right shoulder Annette Block MD [facility] [address] [facility] [address] [place] [address] Phone: tel: fax: Jr. Yeimi Cardenas DO [address] [facility] [address] [place] [address] Phone: tel: fax: Referral ID Status Reason Start Date Expiration Date V isits Requested Visits Authorized [id number] Closed Consult and Treat 04/06/2024 10/03/2024 1 1 Reason Comments Pain Reason Onset Date Comments dentist 05/11/2024 Care Teams (unrecognized sec tion and content) Snap Shearer Relationship Specialty Start Date End Date Annette Block MD [facility] [address] [facility] [address] [place] [address] PCP - General Internal Medicine 02/21/18 Snap Shearer Relationship Specialty Start Date End Date Annette Block MD [address] [place] [address] PCP - General Internal Medicine 02/21/18 Snap Shearer Relationship Specialty Start Date End Date Annette Block MD [address] [place] [address] PCP - General Internal Medicine 02/21/18 Team Status: Inactive Member Role Status Dates Annette Block MD Primary Care Provider Active Annette Callaway II, MD Attending Provider Active Team Status: Active Member Role Status Dates Annette Block MD Primary Care Provider Active Team Status: Inactive Member Role Status Dates Annette Block MD Primary Care Provider Active Preston Tejada MD Attending Provider Active Snap Shearer Relationship Specialty Start Date End Date Annette Block MD [address] [place] [address] PCP - General Internal Medicine 02/21/18 Snap Shearer Relationship Specialty Start Date End Date Annette Block MD [address] [place] [address] PCP - General Internal Medicine 02/21/18 Snap Shearer Relationship Specialty Start Date End Date Annette Block MD [address] [place] [address] PCP - General Internal Medicine 02/21/18 Snap Shearer Relationship Specialty Start Date End Date Annette Block MD [address] [place] [address] PCP - General Internal Medicine 02/21/18 Snap Shearer Relationship Specialty Start Date End Date Annette Block MD [address] [place] [address] PCP - General Internal Medicine 11/16/22 Mark Anthony Drake MD [address] [place] [address] Urology 01/15/23 Snap Shearer Relationship Specialty Start Date End Date Annette Block MD [address] [place] [address] PCP - General Internal Medicine 11/16/22 Mark Anthony Drake MD [address] [place] [address] Urology 01/15/23 Snap Shearer Relationship Specialty Start Date End Date Annette Block MD [address] [place] [address] PCP - General Internal Medicine 02/21/18 Snap Shearer Relationship Specialty Start Date End Date Annette Block MD [address] [place] [address] PCP - General Internal Medicine 02/21/18 Snap Shearer Relationship Specialty Start Date End Date Annette Block MD [address] [place] [address] PCP - General Internal Medicine 02/21/18 Snap Shearer Relationship Specialty Start Date End Date Annette Block MD [address] [place] [address] PCP - General Internal Medicine 02/21/18 Team Status: Inactive Member Role Status Dates Annette Block MD Primary Care Provider Active St art: March 04, 2024 End: March 04, 2024 Preston Tejada MD Attending Provider Active Star t: March 04, 2024 End: March 04, 2024 Snap Shearer Relationship Specialty Start Date End Date Annette Block MD [address] [place] [address] PCP - General Internal Medicine 11/16/22 Jevon Zambrano MD [address] [place] [address] Referring Physician Urology 01/28/24 Ron Hartley, OD [address] [place] [address] Referring Physician Optometry 02/13/24 Mark Anthony Drake MD [address] [place] [address] Urology 01/15/23 [facility] 02/13/24 Snap Shearer Relationship Specialty Start Date End Date Annette Block MD [address] [place] [address] PCP - General Internal Medicine 11/16/22 Jevon Zambrano MD [address] [place] [address] Referring Physician Urology 01/28/24 Ron Hartley, OD [address] [place] [address] Referring Physician Optometry 02/13/24 Mark Anthony Drake MD [address] [place], [place] [id number] Urology 01/15/23 [facility] 02/13/24 Snap Shearer Relationship Specialty Start Date End Date Annette Block MD [address] [place] [phone] PCP - General Internal Medicine 11/16/22 Jevon Zambrano MD [address] [place] [address] Referring Physician Urology 01/28/24 Ron Hartley, OD [address] [place] [address] Referring Physician Optometry 02/13/24 Mark Anthony Drake MD [address] [place] [address] Urology 01/15/23 [facility] 02/13/24 Snap Shearer Relationship Specialty Start Date End Date nAnette Block MD [address] [place] [address] PCP - General Internal Medicine 11/16/22 Jevon Zambrano MD [address] [place] [address] Referring Physician Urology 01/28/24 Ron Hartley, OD [address] [place] [address] Referring Physician Optometry 02/13/24 Mark Anthony Drake MD [address] [place] [address] Urology 01/15/23 [facility] 02/13/24 Snap Shearer Relationship Specialty Start Date End Date Annette Block MD [address] [facility] [place] [phone] PCP - General Internal Medicine 11/16/22 Jevon Zambrano MD [address] [place] [address] Referring Physician Urology 01/28/24 Ron Hartley, VARUN [address] [place] [address] Referring Physician Optometry 02/13/24 Mark Anthony Drake MD [address] [place] [address] Urology 01/15/[address] [facility] Cardiology 02/13/24 Goals (unrecognized section and content) Goals may [...] BE BASED ON THE PRIMARY CLINICAL RECORDS. [employer] provides no warranty or guarantee of the accuracy or completeness of information in this document.
== END 2024-05-23 07:29 | disposition home or self-care (01) ==
LOC: LAB 07:28
PROVIDERS: PCP Internal Medicine
DX: C61 Malignant neoplasm of prostate (principal)
CPT/HCPCS: 36415; 84153

== ENCOUNTER 2024-08-14 07:24 | Outpatient (OUT) | payer MEDICARE, OTHER, SELFPAY ==
[2024-08-14 07:44] LABS: Bilirubin Urine NEGATIVE (NEGATIVE); Blood Urine NEGATIVE (NEGATIVE); Clarity Urine CLEAR (CLEAR); Color Urine LT. YELLOW (YELLOW); Glucose Urine UA NEGATIVE (NEGATIVE); Ketones Urine NEGATIVE (NEGATIVE); Leukocyte Esterase Urine NEGATIVE (NEGATIVE); Nitrite Urine NEGATIVE (NEGATIVE); Protein Urine NEGATIVE (NEG/TRACE); Specific Gravity Urine 1.015 (1.005-1.025); Urobilinogen Urine 0.2 EU/dL (0.2-1.0); pH Urine 6.5 (5.0-9.0)
--- OUTSIDE RECORDS SUMMARY | 2024-08-14 07:45 | XMS_ITS | CCD ---
Author Organization [facility] Care Team Providers Care Field Tech Name Role Phone ANNETTE BLOCK Unavailable Unavailable ANNETTE BLOCK Unavailable Unavailable Horn, Erin Unavailable Unavailable Horn, Erin Unavailable Unavailable GEORGE DOS SANTOS Unavailable Unavailable UMAIR, ANNETTE Primary Care Unavailable ANNETTE BLOCK Referring Unavailable CHALINO FISHERAB A Admitting Unavailable BERRY FISHER Attending Unavailable Annette [...] Unavailable UMAIR, DR BRYANT Primary Care Unavailable HILL, DR BRYANT Consulting Unavailable UMAIR, DR BRYANT Admitting Unavailable HILL, DR BRYANT Attending Unavailable HILL, DR BRYANT Primary Care Unavailable HILL, DR BRYANT Consulting Unavailable MISC, DR BURRELL Admitting Unavailable MISC, DR BURRELL Attending Unavailable UMAIR, DR BRYANT Primary Care Unavailable UMAIR, DR BRYANT Consulting Unavailable MISC, DR BURRELL Admitting Unavailable MISC, DR BURRELL Attending Unavailable HILL, DR BRYANT Primary Care Unavailable MISC, DR BURRELL Consulting Unavailable ELTAHAWEsme, DR VANESSA Consulting Unavailable RON MCCORMICK Admitting Unavailable RON MCCORMICK Attending Unavailable UMAIR, DR BRYANT Primary Care Unavailable EVANSTON, DR KEN Dunlap Consulting Unavailable JACE, RON Consulting Unavailable JACE, RON Admitting Unavailable RON MCCORMICK Attending Unavailable UMAIR, DR BRYANT Primary Care Unavailable SAL, DR CHAPIS Campbell Consulting Unavailable JACE, RON Consulting Unavailable HILL, DR BRYANT Admitting Unavailable HILL, DR BRYANT Attending Unavailable HILL, DR BRYANT Primary Care Unavailable HILL, DR BRYANT Consulting Unavailable HILL, DR BRYANT Admitting Unavailable HILL, DR BRYANT Attending Unavailable HILL, DR BRYANT Primary Care Unavailable HILL, DR BRYANT Consulting Unavailable REQUEST, NONE LISTED Admitting Unavaila ble REQUEST, DR CASTILLO LISTED Attending Unavaila briana BLOCK, DR BRYANT Primary Care Unavailable REQUEST, NONE LISTED Consulting UnavailAnnette Charles MD Primary Care Provider Annette Block MD Primary Care Provider [phone] ANNETTE BLOCK Primary Care Unavailable JEVON ZAMBRANO Referring Unavailab le UMAIR, ANNETTE GUZMAN Primary Care Unavailable JEVON ZAMBRNAO Referring Unavailab le JEVON ZAMBRANO Attending Unavailab le JEVON ZAMBRANO Attending Unavailab ANNETTE Aguayo Primary Care Unavailable MD Annette Block Primary Care Provider MD Preston Tejada Attending Provider Preston Tejada Attending Unavailable Preston Tejada Admitting Unavailable Umair, Annette Primary Care Unavailable Jevon Zambrano MD Unavailable Ron Hartley OD Unavailable [phone] BERRY FISHER Attending Unavailable BERRY FISHER Attending Unavailable JR. CARDENAS GEORGE C Attending Unavaila briana CARDENAS JR., GEORGE C Referring Unavaila ANNETTE Munoz Attending Unavailable ANNETTE BLOCK Referring Unavailable EVETTE DUFFY Attending Unavailable ANNETTE BLOCK Referring Unavailable EVETTE DUFFY Referring Unavailable JR. CARDENAS GEORGE C Attending Unavaila ANNETTE Munoz Referring Unavailable JR. CARDENAS GEORGE C Referring Unavaila briana CARDENAS JR., GEORGE C Referring Unavaila briana CARDENAS JR., GEORGE C Attending Unavaila ANNETTE Munoz Referring Unavailable DOMINGO SILVA Attending Unavailable DOMINGO SILVA Referring Unavailable Medications Current Medications Medication Drug Class(es) Dates Sig (Normalized) Sig (Original) acetaminophen 500 mg oral tablet (20 sources) Start: 03-26-2018 take 2 tablets by [...] Active Start: 04-14-2018 take 1 tablet by ardha th twice daily Alprazolam (Xanax) 0.25 mg [...] 1 tablet by radha th once daily. ascorbic acid 250 mg chewable tablet (6 sources) Vitamin C Start: 03-24-2020 take 1 tablet by mouth once daily Ascorbic Acid (Vitamin C) (Vitamin C) 250 mg Tablet,Chewable Active 250 MG PO Daily March 24, 2020 12:00am Vitamin C Active aspirin 81 mg delayed release oral tablet (20 sources) Platelet Aggregation Inhibitor, Nonsteroidal Anti-inflammatory Drug take 1 tablet by mouth in the morning aspirin 81 MG EC tablet Take 81 mg by mouth in the morning. Active Aspirin 81 Activ e atorvastatin 80 mg oral tablet (20 sources) HMG-CoA Reductase Inhibitor take 1 tablet by mouth at bedtime atorvastatin (Lipitor) 80 MG tablet Take 80 mg by mouth at bedtime. Active azithromycin 250 mg oral tablet (3 sources) Macrolide Antimicrobial Start: 07-01-19 End: 07-06-19 azithromycin (Zithromax) 250 MG tablet Indications: Bronchitis Take 2 tabs (500 mg) by mouth today, than 1 tab (250 mg) daily for 4 days. 6 tablet 07/01/2024 07/06/2024 Active benzonatate 100 mg oral capsule (6 sources) Non-narcotic Antitussive Start: 07-01-19 End: 07-31-19 take 1 capsule by mouth three times daily as needed for cough benzonatate (Tessalon) 100 MG capsule Indications: Acute cough Take 1 capsule (100 mg) by mouth 3 (three) times a day as needed for cough Do not crush or chew. 42 capsule 07/01/2024 07/31/2024 Active calcium carbonate 1500 mg oral tablet (18 sources) Start: 03-26-20 Calcium Carbonate (Calcium 600) 600 mg calcium (1,500 mg) Tablet Active 1200 MG PO Daily March 26, 2018 12:00am Caltrate 600 Act prisca Comment on above: Take 1 tablet by radha once daily. cetirizine hydrochloride 10 mg oral tablet (20 sources) Histamine-1 Receptor Antagonist Start: take 1 tablet by mouth once daily Cetirizine (Zyrtec) 10 mg Tablet Active 10 MG PO Daily April 15, 2017 12:00am Zyrtec 1 tab Ora l Active Comment on above: Take 10 mg by mouth once daily. cholecalciferol 0.05 mg oral tablet (20 sources) Vitamin D Start: 03-24-20 take 1 tablet by mouth once daily Cholecalciferol (Vitamin D3) (Vitamin D3) 50 mcg (2,000 unit) Tablet Active 2000 UNIT PO Daily March 24, 2020 12:00am take 1 capsule by [facility] once in the morning Cholecalciferol (Vitamin D) 50 MCG (2000 UT) capsule Take 1 capsule by mouth in the morning. Active chondroitin sulfates 200 mg / glucosamine hydrochloride 250 mg oral tablet (3 sources) Start: 03-24-2020 take 1 tablet by mouth once daily Glucosamine-Chondroitin (Osteo Bi-Flex) 250-200 mg Tablet Active 1 TAB PO Daily March 24, 2020 12:00am codeine phosphate 2 mg/ml / guaiFENesin 20 mg/ml oral solution (4 sources) Opioid Agonist Start: 07-01-2024 guaiFENesin-codeine (Robitussin-AC) 100-10 MG/5ML syrup Indications: Acute cough Take 5-10 mL by mouth 4 (four) times a day as needed for cough 200 mL 07/01/2024 Active diclofenac sodium 75 mg delayed release oral [...] once daily in the morning Iron Ps Vgxqeto-O22-Iyegt Acid (Poly-Iron 150 Forte) 150-25-1 mg-mcg-mg capsule [...] succinate 25 mg extended release oral capsule (20 sources) beta-Adrenergic Gunner Start: 021 metoprolol succinate 25 mg CSpX take 1 [...] day Active Multiple Minerals-Vitamins (Citracal Plus) tablet (5 sources) End: 02-13-2024 take 1 tablet by mouth in the morning Multiple Minerals-Vitamins (Citracal Plus) tablet Take 1 tablet by mouth in the morning. 02/13/2024 Discontinued take 1 tablet by mouth in the mo rning Multiple Minerals-Vitamins (Citracal Plus) tablet Take 1 tablet by mouth in the morning. Active take 1 tablet by mouth in the mo rning Multiple Minerals-Vitamins (Citracal Plus) tablet Take 1 tablet by mouth in the morning. 0 Active Multivitamin preparation (3 sources) Multivitamin Act prisca Mv,Ca,Rux-Sgbv-Bp-Lyc opene (Centrum Men) 8 mg iron- 200 mcg-600 mcg Tablet (3 sources) Start: 03-26-20 18 Mv,Ca,Mzy-Tops-Ca-Lycope ne (Centrum Men) 8 mg iron- 200 mcg-600 mcg Tablet Active 1 TAB PO Daily March 26, 2018 12:00am Nut.Tx.Gluc.Intol,Lac -Free,Soy (Glucerna) Liquid (3 sources) Start: 03-24-20 20 Nut.Tx.Gluc.Intol,Lac-Fr ee,Soy (Glucerna) Liquid Active 1 EACH PO Daily March 24, 2020 12:00am omeprazole 20 mg delayed release oral capsule (20 sources) Proton Pump Inhibitor Start: 06-01-20 24 take 1 capsule by mouth once daily omeprazole (PriLOSEC) [address] capsule Indications: Gastroesophageal reflux disease without esophagitis TAKE 1 CAPSULE BY MOUTH EVERY DAY 90 capsule 3 06/01/2024 Active Start: 04-01-2019 take 1 capsule by mo uth once daily omeprazole (PriLOSEC) [address] capsule Indications: Gastroesophageal reflux disease without esophagitis TAKE 1 CAPSULE BY MOUTH EVERY DAY 90 capsule 3 06/10/2023 Active take 2 capsules by m [facility] every twenty-four hours Omeprazole 20 MG 2 capsules Orally Once a day Active Comment on above: Take 20 mg by mouth once daily. OZEMPIC 0.25 mg or 0.5 mg (2 mg/3 mL) pen (2 sources) OZEMPIC 0.25 mg or 0.5 mg (2 mg/3 mL) pen Inject 0.25 mg subcutaneously one time a week. 0 Active polyethylene glycol 3350 00925 mg powder for oral solution (20 sources) Osmotic Laxative take 17 g by mouth every twenty-four hours as needed polyethylene glycol, PEG, 3350 (MiraLax) 17 GM/SCOOP powder Take 17 g by mouth Daily as needed. Active MiraLax Active Comment on above: Take by mouth once d aily. Semaglutide,0.25 or 0.5MG/DOS, (Ozempic, 0.25 or 0.5 MG/DOSE,) 2 MG/3ML solution pen-injector (19 sources) Start: 05-15-2024 Semaglutide,0.25 or 0.5MG/DOS, (Ozempic, 0.25 or 0.5 MG/DOSE,) 2 MG/3ML solution pen-injector Indications: Type 2 Diabetes Mellitus , one pre filled pen Inject 0.5 mg under the skin 1 (one) time per week 9 mL 3 05/15/2024 Active Start: 06-11-2023 End: 05-15-2024 Semaglutide,0.25 or 0.5MG/DO S, (Ozempic, 0.25 or 0.5 MG/DOSE,) 2 MG/3ML [...] week 9 mL 3 06/11/2023 Active sennosides, group home 8.6 mg oral tablet (3 sources) Start: 01-10-2018 take 1 tablet by mouth twice daily Sennosides (Senna) 8.6 mg Tablet Active 8.6 MG PO Twice daily January 10, 2018 12:00am sildenafil 100 mg oral tablet (20 sources) Phosphodiesterase 5 Inhibitor Start: 01-21-2019 End: 02-13-2024 take 1 tablet by mouth once daily [...] tablet (13 sources) HMG-CoA Reductase Inhibitor Start: 04-15-2017 End: 10-26-2022 take 20 mg by mouth once daily at bedtime Simvastatin Active 20 MG PO Daily at bedtime April 15, 2017 12:00am Comment on above: Take 20 mg by mouth once daily. traMADol hydrochloride 50 mg oral tablet (4 sources) Opioid Agonist Start: 07-31-2023 End: 08-07-2023 take 1 tablet by mouth every eight [...] Active triamcinolone acetonide 1 mg/ml topical cream (18 sources) Corticosteroid Start: 03-27-2022 End: 07-01-2024 triamcinolone (Kenalog) 0.1 % cream APPLY TO LOWER LEGS TWICE DAILY UNTIL CLEAR, THEN USE NEEDED FOR ITCH 03/27/2022 07/01/2024 Discontinued Start: 09-13-2016 Kenalog -40 mg Aug, Vitamin [...] Drug Class(es) Dates Sig (Normalized) Sig (Original) amoxicillin 500 mg oral capsule (5 sources) Penicillin-class Antibacterial Start: 11-22-2022 End: 02-12-2024 amoxicillin (Amoxil) 500 MG capsule Indications: Prophylactic antibiotic TAKE 4 CAPSULES BY MOUTH 45 MINUTES TO 1 HOUR PRIOR TO DENTAL PROCEDURE 4 capsule 3 11/22/2022 02/12/2024 Discontinued cephalexin 500 mg oral capsule (4 sources) [...] 1 tablet by mouth twice daily Diclofenac-Misopros vrainder Discontinued 1 TAB PO Twice daily April [...] do not crush/dissolve/chew/cut/break multivit-mins /iron/folic/l ycop (MV,CA,MIN-IR [id number] E ORAL) (7 sources) Start: 03-26-2018 End: 10-26-2022 take 1 tablet by mouth once daily multivit-mins/iron/folic/lycop (MV,CA,RDE-TRSC-JX-LYCOPENE ORAL) Take 1 tablet by mouth once daily. 0 03/26/2018 10/26/2022 Discontinued Start: 03-26-2018 take 1 tablet by radha once daily multivit-mins/iron/folic/lycop (MV,CA,IUW-KGEN-LO-LYCOPENE ORAL) Take 1 tablet by mouth once daily. 0 03/26/2018 Active Comment on above: Take 1 tablet by radha th once daily. oxyCODONE hydrochloride 5 mg oral tablet (3 sources) Opioid Agonist Start: 04-03-20 End: 03-24-20 take 1 tablet by mouth every six hours Oxycodone (Roxicodone) 5 mg Tablet Discontinued 1 - 2 TAB PO Q6H 60 April 03, 2018 March 24, 2020 11:40am Prednisone (3 sources) Start: 04-03-20 End: 03-24-20 Prednisone Discontinued 1 dose pk PO per package directions 30 April 03, 2018 12:00am March 24, 2020 11:40am take 4 tabs for 3 days then take 3 tabs for 3 days then take 2 tabs for 3 days then take 1 tab for 3 days rivaroxaban 20 mg oral tablet (3 sources) Factor Xa Inhibitor Start: 04-14-20 End: 03-24-20 take 1 tablet by mouth once at dinner Rivaroxaban (Xarelto) 15 mg (42)- 20 mg (9) tablets,dose pack Discontinued 0 PO per package directions 51 April 14, 2018 12:00am March 24, 2020 11:41am PO PER PKG DIR must administer with evening meal sulfamethoxazole 400 mg / trimethoprim 80 mg [...] [Acute posthemorrhagic anemia] 04-08-2020 Episodic Anxiety disorders (20 sources) Generalized anxiety disorder; Translations: [Generalized anxiety disorder] Onset: 11-19-2022 11-19-2022 Chronic Chronic obstructive pulmonary disease and bronchiectasis (2 sources) Bronchitis; Translations: [Bronchitis, not specified as acute or chronic] 07-01-2024 Episodic Coagulation and hemorrhagic disorders (20 sources) Factor V Leiden mutation; Translations: [Activated protein C resistance] Onset: 05-25-2022 08-20-2019 Chronic Coronary atherosclerosis and other heart disease (20 sources) Coronary arteriosclerosis; Translations: [Atherosclerotic heart disease of knik coronary artery without angina pectoris] Onset: 11-19-2022 01-23-2023 Chronic Disorders of lipid metabolism (20 sources) Hyperlipidemia; Translations: [Hyperlipidemia, unspecified] Onset: 01-24-2022 08-20-2019 Chronic Esophageal disorders (20 sources) Gastroesophageal reflux disease; Translations: [Gastro-esophageal reflux disease without esophagitis] Onset: 11-19-2022 04-15-2017 Chronic Essential hypertension (20 sources) Essential hypertension; Translations: [Essential (primary) hypertension] Onset: 01-18-2023 01-18-2023 Chronic Fracture of lower limb (4 sources) Closed fracture of metatarsal bone; Translations: [Fracture of unspecified metatarsal bone(s), unspecified foot, initial encounter for closed fracture] Onset: 11-10-2021 Episodic Miscellaneous mental health disorders (20 sources) Primary insomnia; Translations: [Primary insomnia] Onset: 11-19-2022 01-18-2023 Chronic Nutritional deficiencies (20 sources) Vitamin D deficiency; Translations: [Vitamin D [...] with routine healing] Onset: 06-11-2018 Episodic Other lower respiratory disease (3 sources) Cough; Translations: [Acute cough] 07-01-2024 Episodic Other lower respiratory disease (2 sources) Decreased breath sounds; Translations: [Other abnormalities of breathing] 07-01-2024 Episodic Other non-traumatic joint disorders (6 sources) Derangement of right shoulder joint; Translations: [Other specific joint derangements of right shoulder, not elsewhere classified] 04-10-2024 Chronic Other non-traumatic joint disorders (2 sources) Pain in right shoulder; Translations: [Pain in joint, shoulder region] 04-10-2024 Episodic Other non-traumatic joint disorders (2 sources) Pain in right knee; Translations: [Pain in joint, lower leg] 07-15-2024 Episodic Other nutritional; endocrine; and metabolic disorders (12 sources) Obese class II; Translations: [Obesity, unspecified] Onset: 05-22-2019 05-22-2019 Chronic Other nutritional; endocrine; and metabolic disorders (20 sources) Morbid obesity; Translations: [Morbid (severe) obesity due to excess calories] Onset: 11-19-2022 11-19-2022 Chronic Other nutritional; endocrine; and metabolic disorders (1 source) Body mass index 30+ - obesity; Translations: [Body mass index (BMI) 32.0-32.9, adult] 07-31-2023 Chronic Other screening for suspected conditions (not mental disorders or infectious disease) (15 sources) Patient encounter status; Translations: [Encounter for screening for malignant neoplasm of colon] Onset: 10-03-2022 04-15-2017 Episodic Other upper respiratory disease (20 sources) Allergic rhinitis; Translations: [Allergic rhinitis, unspecified] Onset: 11-19-2022 11-19-2022 Chronic Residual codes; unclassified (3 sources) Insomnia; Translations: [Insomnia, unspecified] Episodic Spondylosis; intervertebral disc disorders; other back problems (3 sources) Spinal stenosis of lumbar region; Translations: [Spinal stenosis, lumbar region without neurogenic claudication] 04-03-2018 Episodic Sprains and strains (2 sources) Shoulder strain; Translations: [Strain of unspecified muscle, fascia and tendon at shoulder and upper arm level, right arm, initial encounter] 07-21-2024 Episodic Unclassified (2 sources) Shortness of breath [...] Date Documented Da te Episodic/Chronic Allergic reactions (20 sources) Chronic idiopathic urticaria; Translations: [Idiopathic urticaria] Onset: 11-19-2022 Resolved: 01-18-2023 01-18-2023 Episodic Cancer of prostate (20 sources) Malignant tumor of prostate; Translations: [Malignant neoplasm of prostate] Onset: 11-23-2021 Resolved: 01-18-2023 Chronic Cancer of prostate (20 sources) History of malignant neoplasm of prostate; Translations: [Personal history of malignant neoplasm of prostate] Onset: 07-13-2020 01-18-2023 Episodic Diabetes mellitus without complication (20 sources) Prediabetes; Translations: [Other abnormal glucose] Onset: 01-19-2022 Episodic Other acquired deformities (20 sources) Lumbar spondylolisthesis; Translations: [Spondylolisthesis , lumbar region] Onset: 11-19-2022 11-19-2022 Episodic Other aftercare (4 sources) Other detention (current) drug therapy; Translations: [OTH INSULATOR HELPER 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 THERAPY] Onset: 05-23-2022 Episodic Other bone disease and musculoskeletal deformities (20 sources) Osteopenia; Translations: [Other specified disorders of [...] Retinal detachments; defects; vascular occlusion; and retinopathy (19 sources) Retinal disorder; 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 The alignment appeared to be anatomic. There was no evidence of accelerated or asymmetric wear to the patellar button or tibial tray. There was no evidence of fracture and/or dislocation. Impression: Stable RT total knee replacement. 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 The pulmonary vascularity is unremarkable. The lungs are fully expanded and clear. No pleural abnormalities are seen. No evidence of mediastinal or hilar enlargement. The osseous structures are intact. No soft tissue abnormalities are seen. IMPRESSION: Normal chest x-ray. Dictated on: 07/01/2024 4:27 PM This report has been electronically signed and approved by the interpreting Radiologist. Normal Not Available Office Visiton 05-25-2024 Follow-up visit [id number] Roma Benitez 1955 M Date Provider Department Center 05/25/2024 [id number], CHALINO CARD [facility] Family History Problem Relation Age of Onset Sick sinus syndrome Father Other Other Family Status - Relation Status Age at Father Other Level of Service:55188 [place] OFFICE/OUTPATIENT ESTABLISHED LOW MDM 20 MIN Normal [facility] MHPT PSA, DIAGNOSTICon 05-23 PROSTATE SPECIFIC ANTIGEN DX 1.1 ng/mL [facility] - 4.00 ng/mL [facility] MR SHOULDER RIGHT WO IV CONT [facility] [[email or web address]] 04-16-2024 MR SHOULDER RIGHT WO IV CONTRAST [...] biceps tendinosis. ELECTRONICALLY SIGNED BY: Annette Hinds, Normal Not Available XR Shoulder - right [...] right shoulder moderate acromioclavicular degenerative joint disease. [facility] Study observation (narrative) [facility] XR lumbar spine AP/LAT/FLX/E XTon 03-04-2024 XR lumbar spine AP/LAT/FLX/EXT [facility] [address] XRay Report Signed Patient: Marco Antonio Benitez MR#: [id number] 69 : 1955 Acct:[id number] Age/Sex: 68 / M ADM Date: 03/04/24 Loc: XD Room: Type: [facility] Attending Dr: Preston Tejada MD Copies [...] Markus Sahu M.D.03/04/2024 9:00 PM Dictation Location: [place] [address] Transcribed By: [facility] 03/04/242099 Dictated By: Markus Sahu DO 03/04/242056 Signed By: 03/04/242099 Normal [facility] DEXA BONE DENSITYon 02-13-20 DEXA BONE DENSITY FINDINGS: Dual Femur bone density obtained with a TopiVertigC4M whole body system: Region BMD Young-Adult Age-Matched [...] Left Forearm bone density obtained with a LUNHydrostor Prodigy whole body system: Region BMD Young-Adult Age-Matched [...] BY: Jean Arrington MD Normal Not Available ALL CBC WITH AUTO DIFFon BASOPHILS ABSOLUTE AUTO 0.0 [facility] Basophils/100 WBC (Bld) 0.6 % 0.2 - 2.0 % [facility] Eosinophils/100 WBC (Bld) 9.2 % High 0.9 - 7.0 % [facility] Erythrocyte distribution width (RBC) [Ratio] 12.6 % 11.0 - 15.0 % [facility] Hematocrit (Bld) [Volume fraction] 40.3 % Low 42.0 - 54.0 % [facility] Hemoglobin (Bld) [Mass/Vol] 13.4 g/dL Low 14.0 - 18.0 g/dL [facility] IMMATURE GRANULOCYTES ABS AUTO 0.02 [facility] Immature granulocytes/100 WBC (Bld) 0.3 % 0.0 - 0.5 % [facility] Interpretation and review of laboratory results Abnormal [facility] LYMPHOCYTES ABSOLUTE AUTO 1.3 [facility] Lymphocytes/100 WBC (Bld) 20.5 % 20.5 - 60.0 % [facility] MCH (RBC) [Entitic mass] 31.7 pg 25.9 - 34.0 pg [facility] MCHC (RBC) [Mass/Vol] 33.3 g/dL 29.9 - 35.2 g/dL [facility] MCV (RBC) [Entitic vol] 95.3 fL High 80.0 - 94.0 fL [facility] MONOCYTES ABSOLUTE AUTO 0.9 High [facility] Monocytes/100 WBC (Bld) 14.3 % High 1.7 - 12.0 % [facility] NEUTROPHILS ABSOLUTE AUTO 3.4 [facility] Neutrophils/100 WBC (Bld) 55.1 % 43.0 - 75.0 % [facility] Platelet mean volume (Bld) [Entitic vol] 8.4 fL Low 9.5 - 13.5 fL [facility] TBH EO # 0.6 [facility]H PLT 228 [facility] RBC 4.23 Low [facility] TB WBC 6.2 [facility] CNOVon 11-22-2023 CNOV Office Visit (UROLMN ) MARCO ANTONIO BENITEZ ([id number]) 1955 M Date Time Provider Department 11/22/23 [...] of [place]. 08/25/2020:[place] 3+3, 2/ cores 05/28/2019: [place] 3+3=6, 1/12 cores PSA today: 11/15/23 - [...] Jevon Zambrano MD Referring Provider: JEVON ZAMBRANO [[id number]] Allergies As of Date: 11/22/2023 (No Known Allergies) Date Reviewed: 11/22/2023 Reviewed by: Jevon Zambrano MD - Fully Assessed Reason for Visit: Follow Up [171] Primary Visit Diagnosis:Prostate cancer (HCC) [C61] Other Visit Diagnosis:Elevated (more content not included)... Normal [facility] MR Prostate WO and W contras [...] volume were obtained using a semi-automated software ([email or web address]). THREE-DIMENSIONAL IMAGIND imaging including complex volumetric analysis of the prostate was created on a dedicated stand-alone workstation (Invenra)by the interpreting physician, with images reviewed and [...] Other Findings: None. DIVISION OF RADIOLOGY Provider, [facility] - 11/22/2023 * * *Final Report* * * DATE OF EXAM: Nov 22 2023 12:16PM [facility] 0751 - MRI PROSTATE WO/W IVCON [...] volume were obtained using a semi-automated software ([email or web address]). THREE-DIMENSIONAL IMAGIND imaging including complex volumetric analysis of the prostate was created on a dedicated stand-alone workstation (Invenra)by the interpreting physician, with images reviewed and [...] Clinically significant cancer is highly likely (V.) Nurse'S Companion: LIZETTE Transcribe Date/Time: Nov 22 2023 1:34P Dictated by : ALEXIA MOY MD This examination was interpreted and the report reviewed and electronically signed by: LORENZO HEBERT MD on Nov 22 2023 3:20PM [facility] MR Unspecified body region 3 D post processingon 11-22-2023 * * *Final Report* * * DATE OF EXAM: Nov 22 2023 12:16PM [facility] 0280 - MRI 3D POST PROCESSING [...] volume were obtained using a semi-automated software ([email or web address]). THREE-DIMENSIONAL IMAGIND imaging including complex volumetric analysis of the prostate was created on a dedicated stand-alone workstation (Invenra)by the interpreting physician, with images reviewed and [...] Other Findings: None. DIVISION OF RADIOLOGY Provider, [facility] - 11/22/2023 * * *Final Report* * * DATE OF EXAM: Nov 22 2023 12:16PM [facility] 0280 - MRI 3D POST PROCESSING [...] volume were obtained using a semi-automated software ([email or web address]). THREE-DIMENSIONAL IMAGIND imaging including complex volumetric analysis of the prostate was created on a dedicated stand-alone workstation (Invenra)by the interpreting physician, with images reviewed and [...] of suspicion for clinically significant prostate cancer (Belleville score 3 + 4 or higher). PI-RADS v2.1 Assessment Categories: PI-RADS 1: Clinically significant cancer is highly unlikely PI-RADS 2: Clinically significant cancer is unlikely PI-RADS 3: Clinically significant cancer is equivocal PI-RADS 4: Clinically significant cancer is likely PI-RADS 5: Clinically significant cancer is highly likely (V..2018) Nurse'S Companion: LIZETTE Transcribe Date/Time: Nov 22 2023 1:34P Dictated by : ALEXIA MOY MD This examination was interpreted and the report reviewed and electronically signed by: LORENZO HEBERT MD on Nov 22 2023 3:20PM [facility] MRI 3D POST PROCESSINGon MRI 3D POST PROCESSING * * *Final Report* * * DATE OF EXAM: Nov 22 2023 12:16PM [facility] 0280 - MRI 3D POST PROCESSING [...] volume were obtained using a semi-automated software ([email or web address]). THREE-DIMENSIONAL IMAGIND imaging including complex volumetric analysis of the prostate was created on a dedicated stand-alone workstation (Invenra)by the interpreting physician, with images reviewed and [...] of suspicion for clinically significant prostate cancer (Belleville score 3 + 4 or higher). PI-RADS v2.1 Assessment Categories: PI-RADS 1: Clinically significant cancer is highly unlikely PI-RADS 2: Clinically significant cancer is unlikely PI-RADS 3: Clinically significant cancer is equivocal PI-RADS 4: Clinically significant cancer is likely PI-RADS 5: Clinically significant cancer is highly likely (V.05) Nurse'S Companion: PSCB Transcribe Date/Time: Nov 22 2023 1:34P Dictated by : ALEXIA MOY MD This examination was interpreted and the report reviewed and electronically signed by: LORENZO HEBERT MD on Nov 22 2023 3:20PM EST [id number] Normal [facility] MRI PROSTATE WO/W IVCONon MRI PROSTATE [...] volume were obtained using a semi-automated software ([email or web address]). THREE-DIMENSIONAL IMAGIND imaging including complex volumetric analysis of the prostate was created on a dedicated stand-alone workstation (Invenra)by the interpreting physician, with images reviewed and [...] of suspicion for clinically significant prostate cancer (Belleville score 3 + 4 or higher). PI-RADS v2.1 Assessment Categories: PI-RADS 1: Clinically significant cancer is highly unlikely PI-RADS 2: Clinically significant cancer is unlikely PI-RADS 3: Clinically significant cancer is equivocal PI-RADS 4: Clinically significant cancer is likely PI-RADS 5: Clinically significant cancer is highly likely (V.) Nurse'S Companion: LIZETTE Transcribe Date/Time: Nov 22 2023 1:34P Dictated by : ALEXIA MOY MD This examination was interpreted and the report reviewed and electronically signed by: LORENZO HEBERT MD on Nov 22 2023 3:20PM EST [id number] Normal [facility] No Panel Informationon 11-21 IMPRESSION: 1.0 cm [...] Clinically significant cancer is highly likely (V..2018) Nurse'S Companion: PSCB Transcribe Date/Time: Nov 22 2023 1:34P Dictated by : ALEXIA MOY MD This examination was interpreted and the report reviewed and electronically signed by: LORENZO HEBERT MD on Nov 22 2023 3:20PM EST DIVISION OF RADIOLOGY Radiology Study observation (narrative) [facility] No Panel InformationOrdered By: Ccf Provider on 11-22-2023 [facility] URINALYSIS, REFLEX MICROSCOP ICon 11-22-2023 Bilirubin Ql (U) Negative Negative [facility] Clarity (Unsp spec) Clear Clear [facility] Color (U) Light Yellow Yellow [facility] Glucose Test strip (U) [Mass/Vol] Negative Trace, Negative [facility] Hemoglobin Ql (U) Negative Negative, Trace [facility] Interpretation and review of laboratory results Abnormal [facility] Ketones Ql (U) Negative Negative, Trace [facility] Leukocyte esterase Test strip Ql (U) Negative Negative, 25 Rae/uL [facility] Nitrite Ql (U) Negative Negative [facility] pH (U) 5.5 [pH] 5.0 - 8.0 [facility] Protein (U) [Mass/Vol] Negative Trace, Negative [facility] Specific gravity (U) [Rel density] 1.032 High 1.005 - 1.030 [facility] Urobilinogen Ql (U) Normal Normal [facility] Bilirubin Ql (U) Negative Normal Negative [facility] Comment on above: Order Comment: Speci men Type: URINE SPECIMEN Ordering Facility: [facility] Address: [address] [place] [address] Performed By: #### L [id number] #### [facility] CLIA [id number] [address] [place] [address] [place] Clarity (Unsp spec) Clear Normal Clear [facility] Comment on above: Order Comment: Speci men Type: URINE SPECIMEN Ordering Facility: [facility] Address: [address] [place] [address] Performed By: #### L [id number] #### [facility] CLIA [id number] [address] [place] [address] [place] Color (U) Light Yellow Normal Yellow [facility] Comment on above: Order Comment: Speci men Type: URINE SPECIMEN Ordering Facility: [facility] Address: [address] [place] [address] Performed By: #### L [id number] #### [facility] CLIA [id number] [address] [place] [address] [place] Glucose Test strip (U) [Mass/Vol] Negative Normal Trace, Negative [facility] Comment on above: Order Comment: Speci men Type: URINE SPECIMEN Ordering Facility: [facility] Address: [address] [place] [address] Performed By: #### L [id number] #### [facility] CLIA [id number] [address] [place] [address] [place] Hemoglobin Ql (U) Negative Normal Negative, Trace [facility] Comment on above: Order Comment: Speci men Type: URINE SPECIMEN Ordering Facility: [facility] Address: [address] [place] [address] Performed By: #### L [id number] #### [facility] CLIA [id number] [address] [place] [address] [place] Ketones Ql (U) Negative Normal Negative, Trace [facility] Comment on above: Order Comment: Speci men Type: URINE SPECIMEN Ordering Facility: [facility] Address: [address] [place] [address] Performed By: #### L [id number] #### [facility] CLIA [id number] [address] [place] [address] [place] Leukocyte esterase Test strip Ql (U) Negative Normal Negative, 25 Rae/uL [facility] Comment on above: Order Comment: Speci men Type: URINE SPECIMEN Ordering Facility: [facility] Address: [address] [place] [address] Performed By: #### L [id number] #### [facility] CLIA [id number] [address] [place] [address] [place] Nitrite Ql (U) Negative Normal Negative [facility] Comment on above: Order Comment: Speci men Type: URINE SPECIMEN Ordering Facility: [facility] Address: [address] [place] [address] Performed By: #### L [id number] #### [facility] CLIA [id number] [address] [place] [address] [place] pH (U) 5.5 [pH] Normal 5.0-8.0 [facility] Comment on above: Order Comment: Speci men Type: URINE SPECIMEN Ordering Facility: [facility] Address: [address] [place] [address] Performed By: #### L [id number] #### [facility] CLIA [id number] [address] [place] [address] [place] Protein (U) [Mass/Vol] Negative Normal Trace, Negative [facility] Comment on above: Order Comment: Speci men Type: URINE SPECIMEN Ordering Facility: [facility] Address: [address] [place] [address] Performed By: #### L [id number] #### [facility] CLIA [id number] [address] [place] [address] [place] Specific gravity (U) [Rel density] 1.032 High 1.005-1.030 [facility] Comment on above: Order Comment: Speci men Type: URINE SPECIMEN Ordering Facility: [facility] Address: [address] [place] [address] Performed By: #### L [id number] #### [facility] CLIA [id number] [address] [place] [address] [place] Urobilinogen Ql (U) Normal Normal Normal [facility] Comment on above: Order Comment: Speci men Type: URINE SPECIMEN Ordering Facility: [facility] Address: [address] [place] [address] Performed By: #### L [id number] #### [facility] CLIA [id number] [address] [place] [address] [place] Office Visiton 05-30-2023 Follow-up visit [id number] Roma Benitez 1955 M Date Provider Department Center 05/30/2023 BERRY QUIGLEY [facility] Family History Problem Relation Age of Onset Sick sinus syndrome Father Other Other Family Status - Relation Status Age at Father Other Level of Service:13068 RI OFFICE/OUTPATIENT ESTABLISHED LOW MDM 20-29 MIN Normal [facility] GLYCOHEMOGLOBIN A1Con 2022 ADA RECOMMENDATION SEE BELOW Normal [facility] Comment on above: Result Comment: ADA RECOMMENDED LIMIT 4.0 - 6.0 ADA THERAPEUTIC TARGET < 7.0 ACTION SUGGESTED > 7.0 Performed By: #### A 1C #### [facility] [address] [place] [address] Dr. Chari Lantigua Glucose [Mass/Vol] 126 mg/dL Normal [facility] Comment on above: Performed By: #### A 1C #### [facility] [address] [place] [address] Dr. Chari Lantigua HbA1c (Bld) [Mass fraction] 6.0 % Normal 4.5-6.2 [facility] Comment on above: Performed By: #### A 1C #### [facility] [address] [place] [address] Dr. Chari Lantigua MICROALB CREAT RATIO RANDOMo n 07-21-2022 mALB 3.7 mg/L Normal <=30.0 [facility] Comment on above: Performed By: #### M CRR #### [facility] [address] [place] [address] Dr. Chari Lantigua MALB CR RATIO 14.4 mg/g Normal 0.0-29.9 [facility] Comment on above: Performed By: #### M CRR #### [facility] [address] [place] [address] Dr. Chari Lantigua MALB CR RATIO RANGE SEE BELOW Normal [facility] Comment on above: Result Comment: NO M ICROALBUMINURIA 0-29 MG/G CLINICAL MICROALBUMINURIA 30-300 MG/G MACROALBUMINURIA >300 MG/G Performed By: #### M CRR #### [facility] [address] [place] [address] Dr. Chari Lantigua URINE CREAT 257.81 mg/dL Normal 20.00-300.[address] [facility] Comment on above: Performed By: #### M CRR #### [facility] [address] [place] [address] Dr. Chari Lantigua PROF 14(COMP METB)on 023 Albumin [Mass/Vol] 4.0 g/dL Normal 3.4-5.0 [facility] Comment on above: Performed By: #### C BC #### [facility] [address] [place] [address] Dr. Chari Lantigua Albumin/Globulin [Mass ratio] 1.2 {ratio} Normal [facility] Comment on above: Performed By: #### C BC #### [facility] [address] [address] [address] Chari Lantigua ALP [Catalytic activity/Vol] 83 U/L Normal 46-116 [facility] Comment on above: Performed By: #### C BC #### [facility] [address] [address] [address] Chari Lantigua ALT [Catalytic activity/Vol] 46 U/L Normal 16-63 [facility] Comment on above: Performed By: #### C BC #### [facility] [address] [place] [address] Dr. Chari Lantigua Anion gap [Moles/Vol] 14.0 mmol/L Normal Th e [facility] Comment on above: Performed By: #### C BC #### [facility] [address] [place] [address] Dr. Chari Lantigua AST [Catalytic activity/Vol] 30 U/L Normal 15-37 [facility] Comment on above: Performed By: #### C BC #### [facility] [address] [place] [address] Dr. Chari Lantigua Bilirubin [Mass/Vol] 0.5 mg/dL Normal 0.2-1.0 [facility] Comment on above: Performed By: #### C BC #### [facility] [address] [place] [address] Dr. Chari Lantigua Calcium [Mass/Vol] 8.9 mg/dL Normal 8.5-10.1 [facility] Comment on above: Performed By: #### C BC #### [facility] [address] [place] [address] Dr. Chari Lantigua Chloride [Moles/Vol] 104 mmol/L Normal 98-107 [facility] Comment on above: Performed By: #### C BC #### [facility] [address] [place] [address] Dr. Chari Lantigua CO2 [Moles/Vol] 28.7 mmol/L Normal 21.0-32.0 [facility] Comment on above: Performed By: #### C BC #### [facility] [address] [address] [address] Chari Lantigua Creatinine [Mass/Vol] 0.81 mg/dL Normal 0.70-1.30 [facility] Comment on above: Performed By: #### C BC #### [facility] [address] [address] [address] Chari Lantigua EGFR-AF LAO >60 Normal >=60 [facility] Comment on above: Performed By: #### C BC #### [facility] [address] [address] [address] Chari Lantigua EGFR-NON AF LAO >60 Normal >=60 [facility] Comment on above: Performed By: #### C BC #### [facility] [address] [place] [address] Dr. Chari Lantigua Globulin (S) [Mass/Vol] 3.4 g/dL Normal [facility] Comment on above: Performed By: #### C BC #### [facility] [address] [place] [address] Dr. Chari Lantigua Glucose [Mass/Vol] 120 mg/dL Critically high 74-106 [facility] Comment on above: Performed By: #### C BC #### [facility] [address] [place] [address] Dr. Chari Lantigua Potassium [Moles/Vol] 4.7 mmol/L Normal 3.5-5.1 [facility] Comment on above: Performed By: #### C BC #### [facility] [address] [place] [address] Dr. Chari Lantigua Protein [Mass/Vol] 7.4 g/dL Normal 6.4-8.2 [facility] Comment on above: Performed By: #### C BC #### [facility] [address] [place] [address] Dr. Chari Lantigua Sodium [Moles/Vol] 142 mmol/L Normal 136-145 [facility] Comment on above: Performed By: #### C BC #### [facility] [address] [place] [address] Dr. Chari Lantigua Urea nitrogen [Mass/Vol] 21.0 mg/dL Critically high 7.0-18.0 [facility] Comment on above: Performed By: #### C BC #### [facility] [address] [place] [address] Dr. Chari Lantigua Urea nitrogen/Creatinine [Mass ratio] 25.9 mg/mg Normal [facility] Comment on above: Performed By: #### C BC #### [facility] [address] [place] [address] Dr. Chari Lantigua UA RANDOMon 07-21-2022 Bilirubin Ql (U) Negative Normal NEGATIVE [facility] Comment on above: Performed By: #### C BC #### [facility] [address] [place] [address] Dr. Chari Lantigua Clarity (U) CLEAR Normal CLEAR [facility] Comment on above: Performed By: #### C BC #### [facility] [address] [place] [address] Dr. Chari Lantigua Color (U) YELLOW Normal YELLOW [facility] Comment on above: Performed By: #### C BC #### [facility] [address] [place] [address] Dr. Chari Lantigua Glucose Ql (U) Negative Normal NEGATIVE [facility] Comment on above: Performed By: #### C BC #### [facility] [address] [place] [address] Dr. Chari Lantigua Hemoglobin Ql (U) Negative Normal NEGATIVE [facility] Comment on above: Performed By: #### C BC #### [facility] [address] [place] [address] Dr. Chari Lantigua Ketones Ql (U) Negative Normal NEGATIVE [facility] Comment on above: Performed By: #### C BC #### [facility] [address] [place] [address] Dr. Chari Lantigua LEUKOCYTES Negative Normal NEGATIVE [facility] Comment on above: Performed By: #### C BC #### [facility] [address] [place] [address] Dr. Chari Lantigua Nitrite Ql (U) Negative Normal NEGATIVE [facility] Comment on above: Performed By: #### C BC #### [facility] [address] [place] [address] Dr. Chari Lantigua pH (U) 6.0 [pH] Normal 5-9 [facility] Comment on above: Performed By: #### C BC #### [facility] [address] [place] [address] Dr. Chari Lantigua SPEC GRAVITY 1.025 Normal 1.005-<=1.02 5 [facility] Comment on above: Performed By: #### C BC #### [facility] [address] [place] [address] Dr. Chari Lantigua UA PROTEIN Negative Normal NEGATIVE/ TRACE [facility] Comment on above: Performed By: #### C BC #### [facility] [address] [place] [address] Dr. Chari Lantigua Urobilinogen Qn (U) 0.2 {Kyle'U}/dL Normal 0.2 - 1. 0 [facility] Comment on above: Performed By: #### C BC #### [facility] [address] [place] [address] Dr. Chari Lantigua PROF CHEM 8 (BAS METB)on Anion gap [Moles/Vol] 11.3 mmol/L Normal [facility] Comment on above: Performed By: #### C BC #### [facility] [address] [place] [address] Dr. Chari Lantigua Calcium [Mass/Vol] 8.8 mg/dL Normal 8.5-10.1 [facility] Comment on above: Performed By: #### C BC #### [facility] [address] [place] [address] Dr. Chari Lantigua Chloride [Moles/Vol] 103 mmol/L Normal 98-107 [facility] Comment on above: Performed By: #### C BC #### [facility] [address] [place] [address] Dr. Chari Lantigua CO2 [Moles/Vol] 29.2 mmol/L Normal 21.0-32.0 [facility] Comment on above: Performed By: #### C BC #### [facility] [address] [place] [address] Dr. Chari Lantigua Creatinine [Mass/Vol] 0.72 mg/dL Normal 0.70-1.30 [facility] Comment on above: Performed By: #### C BC #### [facility] [address] [place] [address] Dr. Chari Lantigua EGFR-AF LAO >60 Normal >=60 [facility] Comment on above: Performed By: #### C BC #### [facility] [address] [place] [address] Dr. Chari Lantigua EGFR-NON AF LAO >60 Normal >=60 [facility] Comment on above: Performed By: #### C BC #### [facility] [address] [place] [address] Dr. Chari Lantigua Glucose [Mass/Vol] 133 mg/dL Critically high 74-106 [facility] Comment on above: Performed By: #### C BC #### [facility] [address] [place] [address] Dr. Chari Lantigua Potassium [Moles/Vol] 4.5 mmol/L Normal 3.5-5.1 [facility] Comment on above: Performed By: #### C BC #### [facility] [address] [place] [address] Dr. Chari Lantigua Sodium [Moles/Vol] 139 mmol/L Normal 136-145 [facility] Comment on above: Performed By: #### C BC #### [facility] [address] [place] [address] Dr. Chari Lantigua Urea nitrogen [Mass/Vol] 16.0 mg/dL Normal 7.0-18.0 [facility] Comment on above: Performed By: #### C BC #### [facility] [address] [place] [address] Dr. Chari Lantigua Urea nitrogen/Creatinine [Mass ratio] 22.2 mg/mg Normal [facility] Comment on above: Performed By: #### C BC #### [facility] [address] [place] [address] Dr. Chari Lantigua SURGICAL PATHOLOGYon 022 Case Report Surgical Pathology Report Case: [id number] Authorizing Provider: Hugo Garcia MD Collected: 04/12/2022 [...] PROSTATE NEEDLE BIOPSY RIGHT, posterior x 2 [facility] Clinical History elevated PSA Clevel and [...] been determined by the performing laboratory within [facility] s [facility] [place] [facility], [facility], [facility] or [facility]) in a manner consistent with CLIA requirements. One or more of these tests have not been cleared or approved by the FDA. [facility] is regulated under CLIA as qualified to perform high-complexity testing. These tests are used for clinical purposes. They should not be regarded as investigational or for research. Positive and negative controls stain appropriately. [facility] FINAL DIAGNOSIS A. Prostate, left mi [...] right posterior, biopsy: - Benign prostate tissue. RMBranden/laurie 04/17/2022 [facility] Gross Description A. PROSTATE NEEDLE BIOPSY LEFT [...] in one cassette. Gross examination performed at [facility], [address] [place] [id number] 04/12/2022 10:13 PM [facility] Performing Lab Diagnostic interpretation performed at [facility], [address] [place], [place] [id number] [place]# [id number] Digital Production Manager: Gutierrez Jha M.D. [facility] UA DIP, URINE (POC)on 2021 BILIRUBIN UA (POCT) Negative Negative [facility] CLARITY UA (POCT) Clear [facility] COLOR UA (POCT) Yellow [facility] GLUCOSE UA (POCT) Negative Negative mg/dL [facility] HEMOGLOBIN/BLOOD UA (POCT) Negative Negative [facility] KETONE UA (POCT) Negative Negative mg/dL [facility] LEUKOCYTES UA (POCT) Negative Negative [facility] NITRITE UA (POCT) Negative Negative [facility] PH UA (POCT) 6.0 4.5 - 8.0 [facility] Protein Ql (U) Negative Negative mg/dL [facility] SPECIFIC GRAVITY UA (POCT) 1.025 1.005 - 1.030 [facility] UROBILINOGEN UA (POCT) 0.2 E.U./dL Normal E.U./dL [facility] US TRANSRECTAL PROSTATE (ALEXEI S) (POC) GUKI USE ONLYon 04-12-2022 [facility] Covid-19 PCR (CVDTBH)on 01-22 SARS-CoV-2 (COVID-19) RNA ILA+probe Ql (Unsp spec) Detected Critically abnormal NOT DETECTED [facility] Comment on above: Result Comment: This test is not yet approved or cleared by the [place] FDA. When there are no FDA-approved or cleared tests available, and other criteria are met, FDA can make tests available under an emergency access mechanism called an Emergency Use Authorization (EUA). The EUA for this test is supported by the [place] of Health and Human Service's (HHS's) declaration [...] used). Performed By: #### C VDTB #### [facility] [address] [place] [address] Dr. Chari Lantigua INFLUENZA A AND B AGon 02-08 INFLUENZA A AG Negative Normal NEGATIVE SEE COMMENT [facility] Comment on above: Performed By: #### I NFLUAB #### [facility] [address] [place] [address] Dr. Chari Lantigua INFLUENZA B AG Negative Normal NEGATIVE SEE COMMENT [facility] Comment on above: Performed By: #### I NFLUAB #### [facility] [address] [place] [address] Dr. Chari Lantigua INTERNAL CONTROLS Within Normal Limits Normal Wi thin Normal Limits [facility] Comment on above: Performed By: #### I NFLUAB #### [facility] [address] [address] [address] Chari Lantigua CBC AUTO DIFFon 01-19-2022 BASO # 0.0 103/ul Normal 0.0-0.1 [facility] Comment on above: Performed By: #### C BC #### [facility] [address] [address] [address] Chari Lantigua Basophils/100 WBC (Bld) 0.3 % Normal 0.2-2.0 [facility] Comment on above: Performed By: #### C BC #### [facility] [address] [place] [address] Dr. Chari Lantigua EO # 0.2 103/ul Normal 0.0-0.7 [facility] Comment on above: Performed By: #### C BC #### [facility] [address] [place] [address] Dr. Chari Lantigua Eosinophils/100 WBC (Bld) 3.1 % Normal 0.9-7.0 [facility] Comment on above: Performed By: #### C BC #### [facility] [address] [place] [address] Dr. Chari Lantigua Erythrocyte distribution width (RBC) [Ratio] 13.2 % Normal 11.0-15.0 [facility] Comment on above: Performed By: #### C BC #### [facility] [address] [place] [address] Dr. Chari Lantigua Hematocrit (Bld) [Volume fraction] 43.4 % Normal 42.0-54.0 [facility] Comment on above: Performed By: #### C BC #### [facility] [address] [place] [address] Dr. Chari Lantigua Hemoglobin (Bld) [Mass/Vol] 14.5 g/dL Normal 14.0-18.0 [facility] Comment on above: Performed By: #### C BC #### [facility] [address] [place] [address] Dr. Chari Lantigua IG # 0.03 10e3/ul Normal 0.00-0.03 [facility] Comment on above: Performed By: #### C BC #### [facility] [address] [place] [address] Dr. Chari Lantigua IG % 0.4 % Normal 0.0-0.5 [facility] Comment on above: Performed By: #### C BC #### [facility] [address] [place] [address] Dr. Chari Lantigua LYMPH # 1.7 103/ul Normal 1.2-3.8 [facility] Comment on above: Performed By: #### C BC #### [facility] [address] [place] [address] Dr. Chari Lantigua Lymphocytes/100 WBC (Bld) 23.1 % Normal 20.5-60.0 [facility] Comment on above: Performed By: #### C BC #### [facility] [address] [place] [address] Dr. Chari Lantigua MANUAL DIFF REQ NO Normal [facility] Comment on above: Performed By: #### C BC #### [facility] [address] [place] [address] Dr. Chari Lantigua MCH (RBC) [Entitic mass] 31.3 pg Normal 25.9-34.0 [facility] Comment on above: Performed By: #### C BC #### [facility] [address] [place] [address] Dr. Chari Lantigua MCHC (RBC) [Mass/Vol] 33.4 g/dL Normal 29.9-35.2 [facility] Comment on above: Performed By: #### C BC #### [facility] [address] [place] [address] Dr. Chari Lantigua MCV (RBC) [Entitic vol] 93.7 fL Normal 80.0-94.0 [facility] Comment on above: Performed By: #### C BC #### [facility] [address] [place] [address] Dr. Chari Lantigua MONO # 0.9 103/ul Critically high 0.3-0.[address] [facility] Comment on above: Performed By: #### C BC #### [facility] [address] [address] [address] Chari Lantigua Monocytes/100 WBC (Bld) 12.1 % Critically high 1.7-12.0 [facility] Comment on above: Performed By: #### C BC #### [facility] [address] [address] [address] Chari Lantigua NEUT # 4.6 103/ul Normal 1.4-6.5 [facility] Comment on above: Performed By: #### C BC #### [facility] [address] [address] [address] Chari Lantigua Neutrophils/100 WBC (Bld) 61.0 % Normal 43.0-75.0 [facility] Comment on above: Performed By: #### C BC #### [facility] [address] [place] [address] Dr. Chari Lantigua Platelet mean volume (Bld) [Entitic vol] 8.2 fL Critically low 9.5-13.5 [facility] Comment on above: Performed By: #### C BC #### [facility] [address] [address] [address] Chari Lantigua PLT 219 103/ul Normal 150-450 [facility] Comment on above: Performed By: #### C BC #### [facility] [address] [place] [address] Dr. Chari Lantigua RBC 4.63 106/ul Critically low 4.70-6.[address] [facility] Comment on above: Performed By: #### C BC #### [facility] [address] [place] [address] Dr. Chari Lantigua WBC 7.5 103/ul Normal 4.0-11.0 [facility] Comment on above: Performed By: #### C BC #### [facility] [address] [place] [address] Dr. Chari Lantigua GLYCOHEMOGLOBIN A1Con 2021 ADA RECOMMENDATION SEE BELOW Normal [facility] Comment on above: Result Comment: ADA RECOMMENDED LIMIT 4.0 - 6.0 ADA THERAPEUTIC TARGET < 7.0 ACTION SUGGESTED > 7.0 Performed By: #### C BC #### [facility] [address] [address] [address] Chari Lantigua Glucose [Mass/Vol] 140 mg/dL Normal [facility] Comment on above: Performed By: #### C BC #### [facility] [address] [address] [address] Chari Lantigua HbA1c (Bld) [Mass fraction] 6.5 % Critically high 4.5-6.2 [facility] Comment on above: Performed By: #### C BC #### [facility] [address] [place] [address] Dr. Chari Lantigua LIPID PROFILEon 01-19-2022 CHOL-HDL RATIO NORM SEE BELOW Normal [facility] Comment on above: Result Comment: 3.3 - 4.4 LOW RISK 4.4 - 7.1 AVERAGE RISK 7.1 - 11.0 MODERATE RISK >11.0 HIGH RISK Performed By: #### C MP, LIPID #### [facility] [address] [place] [address] Dr. Chari Lantigua Cholesterol [Mass/Vol] 139 mg/dL Normal <=200 [facility] Comment on above: Performed By: #### C MP, LIPID #### [facility] [address] [place] [address] Dr. Chari Lantigua Cholesterol in HDL [Mass/Vol] 42 mg/dL Normal 40-60 [facility] Comment on above: Performed By: #### C MP, LIPID #### [facility] [address] [place] [address] Dr. Chari Lantigua Cholesterol in LDL [Mass/Vol] 71.4 mg/dL Normal [facility] Comment on above: Performed By: #### C MP, LIPID #### [facility] [address] [place] [address] Dr. Chari Lantigua Cholesterol.total/Cho lesterol in HDL [Mass ratio] 3.3 {ratio} Normal [facility] Comment on above: Performed By: #### C MP, LIPID #### [facility] [address] [place] [address] Dr. Chari Lantigua HDL NORMAL > or = 60 mg/dl - LO W CARDIOVASCULAR RISK <40 mg/dl - HIGH CARDIOVASCULAR RISK Normal [facility] Comment on above: Performed By: #### C MP, LIPID #### [facility] [address] [address] [address] Chari Lantigua LDL CALC NORMAL SEE BELOW Normal [facility] Comment on above: Result Comment: <100 mg/dl OPTIMAL 100 - 129 mg/dl NEAR OR ABOVE OPTIMAL 130 - 159 mg/dl BORDERLINE HIGH 160 - 189 mg/dl HIGH >190 mg/dl VERY HIGH Performed By: #### C MP, LIPID #### [facility] [address] [address] [address] Chari Lantigua Triglyceride [Mass/Vol] 128 mg/dL Normal <=150 [facility] Comment on above: Performed By: #### C MP, LIPID #### [facility] [address] [address] [address] Chari Lantigua VLDL CALC 25.6 mg/dL Normal [facility] Comment on above: Performed By: #### C MP, LIPID #### [facility] [address] [address] [address] Chari Lantigua PROF 14(COMP METB)on 022 Albumin [Mass/Vol] 3.6 g/dL Normal 3.4-5.0 [facility] Comment on above: Performed By: #### C MP, LIPID #### [facility] [address] [address] [address] Chari Lantigua Albumin/Globulin [Mass ratio] 1.2 {ratio} Normal [facility] Comment on above: Performed By: #### C MP, LIPID #### [facility] [address] [address] [address] Chari Lantigua ALP [Catalytic activity/Vol] 71 U/L Normal 46-116 [facility] Comment on above: Performed By: #### C MP, LIPID #### [facility] [address] [address] [address] Chari Lantigua ALT [Catalytic activity/Vol] 38 U/L Normal 16-63 [facility] Comment on above: Performed By: #### C MP, LIPID #### [facility] [address] [address] [address] Chari Lantigua Anion gap [Moles/Vol] 10.3 mmol/L Normal [facility] Comment on above: Performed By: #### C MP, LIPID #### [facility] [address] [address] [address] Chari Lantigua AST [Catalytic activity/Vol] 26 U/L Normal 15-37 [facility] Comment on above: Performed By: #### C MP, LIPID #### [facility] [address] [address] [address] Chari Lantigua Bilirubin [Mass/Vol] 0.7 mg/dL Normal 0.2-1.0 [facility] Comment on above: Performed By: #### C MP, LIPID #### [facility] [address] [address] [address] Chari Lantigua Calcium [Mass/Vol] 8.5 mg/dL Normal 8.5-10.1 [facility] Comment on above: Performed By: #### C MP, LIPID #### [facility] [address] [address] [address] Chari Lantigua Chloride [Moles/Vol] 105 mmol/L Normal 98-107 [facility] Comment on above: Performed By: #### C MP, LIPID #### [facility] [address] [address] [address] Chari Lantigua CO2 [Moles/Vol] 30.3 mmol/L Normal 21.0-32.0 [facility] Comment on above: Performed By: #### C MP, LIPID #### [facility] [address] [address] [address] Chari Lantigua Creatinine [Mass/Vol] 0.77 mg/dL Normal 0.70-1.30 [facility] Comment on above: Performed By: #### C MP, LIPID #### [facility] [address] [address] [address] Chari Lantigua EGFR-AF LAO >60 Normal >=60 [facility] Comment on above: Performed By: #### C MP, LIPID #### [facility] [address] [address] [address] Chari Lantigua EGFR-NON AF LAO >60 Normal >=60 [facility] Comment on above: Performed By: #### C MP, LIPID #### [facility] [address] [address] [address] Chari Lantigua Globulin (S) [Mass/Vol] 3.0 g/dL Normal [facility] Comment on above: Performed By: #### C MP, LIPID #### [facility] [address] [address] [address] Chari Lantigua Glucose [Mass/Vol] 149 mg/dL Critically high 74-106 [facility] Comment on above: Performed By: #### C MP, LIPID #### [facility] [address] [address] [address] Chari Lantigua Potassium [Moles/Vol] 4.6 mmol/L Normal 3.5-5.1 [facility] Comment on above: Performed By: #### C MP, LIPID #### [facility] [address] [address] [address] Chari Lantigua Protein [Mass/Vol] 6.6 g/dL Normal 6.4-8.2 [facility] Comment on above: Performed By: #### C MP, LIPID #### [facility] [address] [address] [address] Chari Lantigua Sodium [Moles/Vol] 141 mmol/L Normal 136-145 [facility] Comment on above: Performed By: #### C MP, LIPID #### [facility] [address] [address] [address] Chari Lantigua Urea nitrogen [Mass/Vol] 12.0 mg/dL Normal 7.0-18.0 [facility] Comment on above: Performed By: #### C MP, LIPID #### [facility] [address] [address] [address] Chari Lantigua Urea nitrogen/Creatinine [Mass ratio] 15.6 mg/mg Normal [facility] Comment on above: Performed By: #### C MP, LIPID #### [facility] [address] [address] [address] FOOT RT WO [...] CHAPIS HUANG Date: 2021-11-06 09:52 Normal [facility] MRI PROSTATE WO/W IVCONon [facility] HOMOCYSTEINEon 10-12-2021 Homocyst(e)ine, Plasma 7.7 umol/L Normal 0.0-17.2 [facility] Comment on above: Performed By: #### H OMCY #### [facility] [address] [address] [address] Chari Lantigua ANTI-BETA 2 GLYCOPROTEIN 1on 10-06-2021 ANTI B2GP1 IGG 0.1 g units Normal 0.0-19.9 [facility] Comment on above: Performed By: #### 9 0118, [id number] #### [facility] [address] [place] [address], [facility] ANTI B2GP1 IGM 1.7 m units Normal 0.0-19.9 [facility] Comment on above: Performed By: #### 9 0118, 59906 #### [facility] [address] [place] [address], [facility] ANTICARDIOLIPIN ANTIBODYon 0 10-06-2021 CARDIOLIPIN IGG 1.6 GPL Normal 0.0-22.9 [facility] Comment on above: Performed By: #### 9 0118, 52862 #### [facility] [address] [place] [address], [facility] CARDIOLIPIN IGM 0.9 MPL Normal 0.0-10.9 [facility] Comment on above: Performed By: #### 9 0118, 64313 #### [facility] [address] [address], [facility] ANTITHROMBIN III ACTIVITYon 10-06-2021 AT 3 ACTIVITY 100 % Normal 70-120 [facility] Comment on above: Performed By: #### 5 3017, 97377, 31348, 55245 #### [facility] [address] [place] [address], [facility] FACTOR V LEIDEN R506Q MUTATI [place] [id number] 10-06-2021 FACTOR V LEIDEN Heterozygous Abnormal [facility] Comment on above: Result Comment: Alem cation for testing: Assess genetic risk for thrombosis. HETEROZYGOUS: One copy of the factor V Leiden variant, c.1601G>A; p.Xff408Jkc, was detected. This is associated with activated [...] function in the F5 gene variant c.1601G>A (p.Cvp302Ovn). Legacy nomenclature: R506Q (1691G>A) CLINICAL SENSITIVITY: 20-50 percent of individuals with an isolated VTE have the FVL variant. METHODOLOGY: Polymerase chain reaction and fluorescence monitoring. ANALYTICAL SENSITIVITY AND SPECIFICITY: 99 percent. LIMITATIONS: Diagnostic errors can occur due to rare sequence variations. F5 gene mutations, other than p.Unf120Tqy, will not be detected. This test was developed and its performance characteristics determined by [facility]. It has not been cleared or approved by the [place] Food and Drug Administration. This test was performed in a CLIA certified laboratory and is intended for clinical purposes. Counseling and informed consent are recommended for genetic testing. Consent forms are available online. Performed By: [facility] [address] [place] [id number] Digital Production Manager: Harriett Martins MD FAC SPECIMEN Whole Blood Normal [facility] LUPUS ANTICOAGULANTon 2021 LUPUS ANTICOAGUL Negative Normal NEGATIVE [facility] Comment on above: Result Comment: BY H EXAGONAL PHASE PHOSPHOLIPID METHODOLOGY Performed By: #### 5 3017, 31349, 80340, 98591 #### [facility] [address] [place] [address], [place] PROTEIN C ACTIVITYon 022 PROTEIN C ACTIV 110 % Normal 60-140 [facility] Comment on above: Performed By: #### 5 3017, 47249, 93865, 46972 #### [facility] [address] [place] [address], [place] PROTEIN S ACTIVITYon 022 PROTEIN S ACTIV 81 % Normal 60-165 [facility] Comment on above: Performed By: #### 5 3017, 92744, 40421, 30723 #### [facility] [address] [place] [address], [facility] PROTHROMBIN (F2) [id number] 560 60on 10-06-2021 PROTHROMBIN FRET ( PCR AND FRET) Negative Normal [facility] Comment on above: Result Comment: Alem cation for testing: Assess genetic risk for thrombosis. NEGATIVE: The Factor II, prothrombin [id number] mutation, was not detected. Other causes of [...] M.D., Ph.D. 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 PATHOGENIC VARIANT TESTED: F2 c.*97G>A (Q28580F). CLINICAL SENSITIVITY FOR VENOUS THROMBOSIS: Approximately 10 percent. METHODOLOGY: Polymerase chain reaction and fluorescence monitoring. ANALYTICAL SENSITIVITY AND SPECIFICITY: 99 percent. LIMITATIONS: Diagnostic errors can occur due to rare sequence variations. F2 gene variants, other than c.*97G>A (J89714C), will not be detected. This test was developed and its performance characteristics determined by [facility]. It has not been cleared or approved by the [place] Food and Drug Administration. This test was performed in a CLIA certified laboratory and is intended for clinical purposes. Counseling and informed consent are recommended for genetic testing. Consent forms are available online. Performed By: [facility] [address] [place] [id number] Digital Production Manager: Harriett Martins MD PT PCR SPECIMEN Whole Blood Normal [facility] Cardiovascular Lab Reporton 11-19-2020 Cardiovascular Lab Report [facility] Patient Name: [facility] Von MR #: [id number] Department of Physician: Donna Faith M.D. Division of Service Date: 11/18/2020 Cardiology Birthdate: 1955 Adult Cardiovascular Room #: [place] [address] Cardiovascular Laboratory Report FINAL IMPRESSIONS: 1. Severe, [...] the left radial artery was obtained. A 6-Trinidadian 11 cm sheath was inserted without difficulty. [...] Fisher M.D. Date Trans: 11/19/2020 05:18 A/aidan [id number] cc: Annette Block M.D. [address] [place] [address] CARDIAC SCORING Addendum [...] INDICATION: Hyperlipidemia, unspecified. COMPARISON: None. ACCESSION NUMBER(S): [id number] ORDERING CLINICIAN: ANNETTE BLOCK TECHNIQUE: Using prospective [...] et al. JCCT 2016 (http://dx.doi.org/10. 1016/j.jcct.2016.11.00 3) AGRCIA Percentile In general, greater than 75th percentile [...] al. JACC 2014 (http://dx.doi.org/10. 1016/j.j acc.2015.08.035) [employer] Technician: Dr. Vaughn Park, Date: 10/24/2020 11:12 am Electronically signed by: MCKINLEY FARR MD [facility] Lower Ext/No Jt/w/oon 2017 Lower Ext/No Jt/w/o [facility] [id number] [place] [id number] Ext/No Jt/w/oMR#: [id number] Acct: [id number]: MARCO ANTONIO BENITEZ Rep #: [id number]: 1955 M 63 From: Vincent Grier MDPCP: OUT OF TOWN DOCTOR Status: REG CLIStudy: Lower Ext/No Jt/w/o Date of Exam: 06/10/18Exam# [id number] Ordering Dr: Erin MinayaADDENDUM by Dajuan Camejo MD on 06/11/18 at 1438 ADDENDUM==== ==ADDENDUM:Study is compared with previous plain film and outside bone scan from 2015.Little significant change noted from the previous studies. The bone scansuggests fracture in the fourth metatarsal which is also noted on therecent MRI.The postoperative changes described on the MRI are also present on theplain film.Electronically Signed:Behzad Camejo MD at 14:38 ESTTel , Service support , 12/1437Date cc: Erin Minaya DPM; OUT OF TOWN DOCTOR *SignedADDENDUM by Dajuan Camejo MD on 06/11/18 at 1438 ADDENDUM==== ==ADDENDUM:Study is compared with previous plain film and outside bone scan from 2015.Little significant change noted from the previous studies. The bone scansuggests fracture in the fourth metatarsal which is also noted on therecent MRI.The postoperative changes described on the MRI are also present on theplain film.Electronically Signed:Behzad Camejo MD at 14:38 [facility] [phone], Service support , 12 1438Date cc: Erin Minaya DPM; OUT OF TOWN DOCTOR *SignedADDENDUM by Dajuan Camejo MD on 06/11/18 at 1438ORDER #: [id number] MRI/Lower Ext/No Jt/w/o108/12/17 1445Date cc: Erin Minaya DPM; OUT OF TOWN DOCTOR *SignedADDENDUM by Dajuan Camejo MD on 06/11/18 at 1438ORDER #: [id number] MRI/Lower Ext/No Jt/w/o108/12/17 1445Date cc: Erin Minaya [...] muscle.Normal subcutis adipose space. ORD ER #: [id number] MRI/Lower Ext/No Jt/w/oIMPRESSION:Posto perative changes are seen with fusion at the second tarsometatarsalarticul ation. 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.Marrow edema with bone bruise or stress injury of the fourth metatarsal.Arthritic changes.Electronically Signed:Vincent Grier MD at 21:17 ESTTel , Service support , HF: Erin Minaya DPMic; OUT OF TOWN DOCTOR Nurse'S Companion:Rossy Valencia [facility] Vital Signs Date Time Vital Sign Value Performing Clinician Facility 07-01-2024 09:39-0500 Body height 172.7 cm Domingo Silva [employer]CH[employer]ECT Work Phone: [facility] 07-01-2024 09:39-0500 Body mass index (BMI) [Ratio] 34.52 kg/m2 Domingo Silva [employer] ARCHITECT Work Phone: [facility] 07-01-2024 09:39-0500 Body temperature 97.9 [degF] Domingo Silva [employer] ARCHITECT Work Phone: [facility] 07-01-2024 09:39-0500 Body weight 102.97 kg Domingo Silva [employer] ARCHITECT Work Phone: [facility] 07-01-2024 09:39-0500 Diastolic blood pressure 76 mm[Hg] Domingo Silva [employer] ARCHITECT Work Phone: [facility] 07-01-2024 09:39-0500 Heart rate 85 /min Domingo Silva [employer] ARCHITECT Work Phone: [facility] 07-01-2024 09:39-0500 SaO2% (BldA) [Mass fraction] 96 % Domingo Silva [employer] ARCHIT[employer] Work Phone: [facility] 07-01-2024 09:39-0500 Systolic blood pressure 122 mm[Hg] Domingo Silva NP Work Phone: [facility] 02-13-2024 09:04-0400 Body height 172.7 cm Summer Workman PA Work Phone: [facility] 02-13-2024 09:04-0400 Body mass index (BMI) [Ratio] 33.82 kg/m2 Summer Workman PA Work Phone: [facility] 02-13-2024 09:04-0400 Body weight 100.88 kg Summer Workman PA Work Phone: [facility] [facility] 02-13-2024 09:04-0400 Diastolic blood pressure 80 mm[Hg] Summer Workman PA Work Phone: [facility] 02-13-2024 09:04-0400 Heart rate 80 /min Summer Workman PA Work Phone: [facility] 02-13-2024 09:04-0400 SaO2% (BldA) [Mass fraction] 97 % Summer Workman PA Work Phone: [facility] 02-13-2024 09:04-0400 Systolic blood pressure 128 mm[Hg] Summer Workman PA Work Phone: [facility] 11-22-2023 13:24-0400 Body height 172.7 cm Jevon Zambrano MD Work Phone: [facility] 11-22-2023 13:24-0400 Body mass index (BMI) [Ratio] 32.8 kg/m2 Jevon Zambrano MD Work Phone: [facility] 11-22-2023 13:24-0400 Body weight 97.85 kg Jevon Zambrano MD Work Phone: [facility] 07-31-2023 09:03-0500 Body height 172.7 cm Yudy Gupta [employer]CH[employer] Work Phone: [facility] 07-31-2023 09:03-0500 Body mass index (BMI) [Ratio] 32.84 kg/m2 Yudy Gupta [employer] ARCH[employer] Work Phone: [facility] 07-31-2023 09:03-0500 Body weight 97.98 kg Yudy Risaliti [employer] ARCHITECT Work Phone: [email or web address] 07-31-2023 09:03-0500 Diastolic blood pressure 76 mm[Hg] Yudy Risaliti [employer] SOLUT[employer] ARCHITECT Work Phone: [email or web address] 07-31-2023 09:03-0500 Heart rate 74 /min Yudy Risaliti [employer] ARCH[employer] Work Phone: [email or web address] 07-31-2023 09:03-0500 SaO2% (BldA) [Mass fraction] 96 % Yudy Risaliti [employer] ARCH[employer]ECT Work Phone: [email or web address] 07-31-2023 09:03-0500 Systolic blood pressure 124 mm[Hg] Yudy Risaliti [employer] ARCH[employer]ECT Work Phone: [email or web address] 03-05-2023 11:20-0400 Body height 172.72 cm Preston Tejada Other [facility] Other 03-05-2023 11:20-0400 Body mass index (BMI) [Ratio] 32.99 kg/m2 Preston Tejada Other [facility] Other 03-05-2023 11:20-0400 Body weight 98.43 kg Preston Tejada Other [facility] Other 03-05-2023 11:20-0400 Diastolic blood pressure 80 mm[Hg] Preston Tejada Other [facility] Other 03-05-2023 11:20-0400 Systolic blood pressure 126 mm[Hg] Preston Tejada Other [facility] Other 03-08-2022 12:40-0400 Body height 172.72 cm Preston Tejada Other [facility] Other 03-08-2022 12:40-0400 Body mass index (BMI) [Ratio] 36.94 kg/m2 Preston Tejada Other [facility] Other 03-08-2022 12:40-0400 Body weight 110.22 kg Preston Tejada Other [facility] Other 02-15-2022 12:30-0400 Body height 172.72 cm Annette Callaway II Other [facility] Other 02-15-2022 12:30-0400 Body mass index (BMI) [Ratio] 36.94 kg/m2 Annette Callaway II Other [facility] Other 02-15-2022 12:30-0400 Body weight 110.22 kg Annette Callaway II Other [facility] Other Encounters Encounter Date Encounter Type Care Provider Facility Start: 07-22-2024 End: 07-22-2024 Sanjiv Cardenas DO Work Phone: [facility] Start: 07-22-2024 End: 07-22-2024 Sanjiv Cardenas DO Work Phone: [facility] Start: 07-22-2024 End: 07-22-2024 Postop follow up visit related to original px Adalberto Lyn [employer] Work Phone: [facility] Comment on above: History of right kne e joint replacement (Primary Dx); Acute pain of right knee; Strain of right shoulder, initial encounter Start: 07-22-2024 End: 07-22-2024 ambulatory YEIMI RICHEY Not Available Start: 07-01-2024 End: 07-01-2024 Telephone encounter Gretchen Blake BENÍTEZ [facility] Comment on above: needs rx for cough s yrup Start: 07-01-2024 End: 07-01-2024 Office outpatient visit 25 minutes Domingo Silva [employer] Work Phone: [facility] Comment on above: Acute cough (Primary Dx); Bronchitis; Decreased breath sounds at right lung base Start: 07-01-2024 End: 07-01-2024 ambulatory DOMINGO SILVA Not Available Start: 05-25-2024 End: 05-25-2024 ambulatory CHALINOAB [facility] Start: 05-23-2024 End: 05-23-2024 Clinisync Result Encounter Generic External Data Provider [facility] External Department Unsolicited Start: 05-23-2024 End: 05-23-2024 Clinisync Result Encounter Generic External Data Provider [facility] External Department Unsolicited Start: 05-11-2024 End: 05-11-2024 Telephone encounter Jr. Yeimi Otero Stepanic DO Work Phone: [facility] Comment on above: dentist Start: 04-22-2024 End: 04-22-2024 Bamboo flowsheet Jr. Yeimi Otero Stepanic DO Work Phone: [facility] Start: 04-22-2024 End: 04-22-2024 Bamboo flowsheet JrGiovany Otero Stepanic DO Work Phone: [facility] Start: 04-22-2024 End: 04-22-2024 Office outpatient visit 25 minutes Jr. Yeimi Otero Stepanic DO Work Phone: [facility] Comment on above: Internal derangement of right shoulder (Primary Dx) Start: 04-22-2024 End: 04-22-2024 ambulatory JR.YEIMI STEPANIC Not Available Start: 04-16-2024 End: 04-16-2024 ambulatory JR.YEIMI STEPANIC Not Available Start: 04-10-2024 End: 04-10-2024 Bamboo flowsheet JrGiovany Yeimi Otero Stepanic DO Work Phone: [facility] Start: 04-10-2024 End: 04-10-2024 Bamboo flowsheet Jr. Yeimi Otero Stepanic DO Work Phone: [facility] Start: 04-10-2024 End: 04-10-2024 Office outpatient visit 25 minutes Jr. Yeimi C Stepanic DO Work Phone: [facility] Comment on above: Acute pain of right shoulder (Primary Dx); Internal derangement of right shoulder Start: 04-10-2024 End: 04-10-2024 ambulatory YEIMI RICHEYANDREW Not Available Start: 03-04-2024 End: 03-04-2024 Patient encounter procedure MD Annette Block Work Phone: [facility] Work Phone: Start: 03-04-2024 End: 03-04-2024 ambulatory MD Annette Block Work Phone: [facility] Work Phone: Start: 02-26-2024 End: 02-26-2024 ambulatory summer WORK Not Available Start: 02-13-2024 End: 02-13-2024 Office outpatient visit 25 minutes summer Work PA Work Phone: [facility] Comment on above: Essential hypertensi on (CMS/HCC) (Primary Dx); 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); Prediabetes; Pure hypercholesterolemia (CMS/HCC); Generalized anxiety disorder (CMS/HCC); Primary insomnia; Medicare annual wellness visit, subsequent; ACP (advance care planning); Prostate cancer screening; Osteopenia of multiple sites Start: 02-13-2024 End: 02-13-2024 Patient encounter procedure summer Work PA Work Phone: [facility] Start: 02-13-2024 End: 02-13-2024 ambulatory summer WORK Not Available Start: 02-11-2024 End: 02-11-2024 Clinisync Result Encounter Generic External Data Provider [facility] External Department Unsolicited Start: 02-11-2024 End: 02-11-2024 Clinisync Result Encounter Generic External Data Provider [facility] External Department Unsolicited Start: 11-22-2023 End: 11-22-2023 ambulatory Jevon Zambrano [...] above: MRI Result Start: 11-14-2023 E-mail encounter gigi olvera caregiver [facility] Provider MRI Q Start: 07-31-2023 End: 07-31-2023 Office outpatient visit 25 minutes Yudy Gupta NP Work Phone: [facility] Comment on above: Essential (primary) hypertension (CMS/HCC) (Primary Dx); Pure hypercholesterolemia (CMS/HCC); Prediabetes; 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); Gastroesophageal reflux disease without esophagitis; Generalized anxiety disorder (CMS/HCC); Osteopenia of multiple sites; Primary insomnia; Primary osteoarthritis involving multiple joints; Factor V Leiden (CMS/HCC); Vitamin D deficiency; History of malignant neoplasm of prostate; Morbid obesity (CMS/HCC); BMI 32.0-32.9,adult Start: 07-31-2023 End: 07-31-2023 ambulatory ANNETTE BLOCK Not Available Start: 07-25-2023 Chart abstracting Annette nettles MD Work Phone: [facility] Start: 05-30-2023 End: 05-30-2023 ambulatory EHAB [facility] Start: 05-22-2023 End: 05-22-2023 ambulatory Jevon Zambrano MD Work Phone: Urology Comment on above: Prostate cancer (HCC ) (Primary Dx) Start: 05-22-2023 End: 05-22-2023 Telemedicine consultation with patient Jevon Zambrano MD Work Phone: [facility] Start: 03-05-2023 End: 03-05-2023 ambulatory Preston Butcher [facility] [employer] Other Start: 03-05-2023 Office outpatient vi sit 15 minutes Preston Tejada [facility] Start: 10-26-2022 End: 10-26-2022 ambulatory Mark Anthony Real MD Work Phone: Urology Comment on above: Prostate cancer (HCC ) (Primary Dx) Start: 10-26-2022 End: 10-26-2022 Telemedicine consultation with patient Mark Anthony Real MD Work Phone: [facility] Start: 10-03-2022 End: 10-04-[address] DOCTOR REVELES Facility:[facility]1 Start: 07-21-2022 End: 07-22-[address] ANNETTE BLOCK Facility:[facility]1 Start: 05-23-2022 End: 05-24-[address] ANNETTE BLOCK Facility:[facility]1 Start: 04-20-2022 Telephone encounter Mark Anthony garcia MD Work Phone: Urology Comment on above: Results Start: 04-12-2022 End: 04-24-2022 Patient encounter procedure Hugo Garica MD Work Phone: Urology Comment on above: Elevated PSA (Primar y Dx) Start: 04-11-2022 End: 04-12-[address] CASTILLO LISTED REQUEST Facility: Start: 04-10-2022 Orders Only Navin Redman MD Work Phone: Urology Comment on above: Prostate cancer (HCC ) (Primary Dx) Start: 03-08-2022 End: 03-08-2022 ambulatory Preston Tejada Other [facility] [employer] Other Start: 03-08-2022 Office outpatient vi sit 15 minutes Preston Tejada [facility] Start: 03-07-2022 End: 03-07-2022 Patient encounter procedure MD Annette Block Work Phone: [facility] Start: 02-21-2022 Telephone encounter Mark Anthony garcia MD Work Phone: Urology Comment on above: Appointment Start: 02-15-2022 End: 02-15-2022 ambulatory Annette Callaway II Other [facility] Other Start: 02-15-2022 Office outpatient ne w 45 minutes Annette Callaway II [facility] Start: 02-15-2022 End: 02-15-2022 Patient encounter procedure MD Annette Block Work Phone: [facility] [place] Start: 02-08-2022 End: 02-08-[address] ANNETTE BLOCK Facility:[facility]1 Start: 01-19-2022 End: 01-20-[address] ANNETTE BLOCK Facility:[facility] Start: 11-23-2021 End: 11-23-2021 ambulatory Hugo Garcia MD Work Phone: Urology Comment on above: Prostate cancer (HCC ) Start: 11-23-2021 End: 11-23-2021 Telemedicine consultation with patient Hugo Garcia MD Work Phone: [facility] Start: 11-06-2021 End: 11-07-2021 ambulatory RON MCCORMICK Facility:[facility]1 Start: 11-02-2021 End: 11-03-2021 ambulatory RON MCCORMICK Facility:[facility]1 Start: 10-27-2021 End: 10-27-2021 Subsequent hospital visit by physician Mri 6 Radio Main Q (I-Stat/1.5t/3t) Work Phone: MRI Q Comment on above: Malignant neoplasm o f prostate (HCC) [C61] Start: 10-11-2021 End: 10-12-[address] DOCTOR REVELES Facility:[facility]1 Start: 11-18-2020 End: 11-19-2020 ambulatory ANNETTE BLOCK Facility:[facility] Start: 06-10-2018 Patient encounter procedure Erin hood Facility:[facility] Start: 02-06-2017 Ambulatory ANNETTE BLOCK Facility:[id number] Start: 02-06-2017 Ambulatory Facility:[id number] Procedures Date Procedure Procedure Detail Performing Clinician Start: 07-22-2024 Radiologic examinati on knee 1/2 views Jr. Yeimi Cardenas DO Work Phone: Start: 05-23-2024 MHPT PSA, DIAGNOSTIC Ge neric External Data Provider Start: 04-10-2024 Radex shoulder compl ete minimum 2 views Jr. Yeimi Cardenas DO Work Phone: Start: 03-04-2024 X-ray of lumbar spin e, four views MD Annette Block Work Phone: Start: 02-11-2024 ALL CBC WITH AUTO DIFF Generic External Data Provider Start: 11-22-2023 Urnls dip stick/tabl et rgnt auto w/o microscopy Bulk Order Provider Start: 11-22-2023 3d rendering w/interp&postproc diff work station Jevon Zambrano MD Work Phone: Start: 11-22-2023 Mri pelvis w/o & w/contrast material Jevon Zambrano MD Work Phone: Start: 10-03-[address] ANNETTE BLOCK Comment on above: Performed By: #### P SAD #### [facility] [address] [place] [address] Dr. Chari Lantigua Start: 04-12-2022 Level iv surg pathol ogy gross&microscopic exam Hugo Garcia MD Work Phone: Start: 04-12-2022 Us transrct prstate vol brachytx plnning spx Hugo Garcia MD Work Phone: Start: 04-12-2022 Urnls dip stick/tabl et rgnt auto w/o microscopy Hugo Garcia MD Work Phone: Start: 04-11-[address] ANNETTE BLOCK Comment on above: Performed By: #### P SAD #### [facility] [address] [place] [address] Dr. Chari Lantigua Start: 03-07-2022 X-ray of lumbar spin e, six views including bending views MD Annette Block Work Phone: Start: 02-15-2022 End: 02-15-2022 Pelvis X-ray MD Annette Block Work Phone: Start: 10-27-2021 Mri pelvis w/o & w/contrast material Navin Redman MD Work Phone: Start: 04-15-2017 Colonoscopy Annette nettles MD Work Phone: History of operative procedure on knee History of right knee joint replacement Adalberto Maria Eugenia Riki DELEON Work Phone: Plan of Treatment Date Care Activity Detail Author Start: 02-04-2028 Urine microalbumin profile DTaP,Tdap,Td Vaccine (2 - Td or Tdap) [facility] Start: 10-04-2027 PROSTATE CANCER SCREENING DISCUSSION PROSTATE CANCER SCREENING DISCUSSION [facility] Start: 10-04-2027 Prostate specific antigen measurement Prostate Cancer Screening Discussion [facility] Start: 04-15-2027 Screening for malignant neoplasm of colon [facility] Start: 01-28-2026 Glaucoma screening Diabetes: Retinopathy Screening [facility] Start: 07-21-2025 End: 07-21-2025 Patient encounter procedure 07/21/2025 8:00 AM EST Office Visit [facility] [address] [place] [address] Jr. Yeimi Cardenas, [address] [facility] [address] [place] [address] [facility] Start: 02-12-2025 Medicare Annual Wellness (AWV) Medicare Annual Wellness (AWV) [facility] Start: 08-18-2024 End: 08-18-2024 Patient encounter procedure 08/18/2024 9:15 AM EST Office Visit [facility] [address] [place] [address] Annette Block MD [address] [place] [address] [facility] Start: 08-15-2024 End: 02-12-2025 Basic metabolic 1998 panel - Serum or Plasma Basic metabolic panel Lab Routine Essential hypertension (CMS/HCC) Expected: 08/15/2024 (Approximate), Expires: 02/12/2025 [facility] Work Phone: Comment on above: Expected: 08/15/2024 (Approximate), Expi res: 02/12/2025 Start: 08-15-2024 End: 02-12-2025 Hemoglobin a1c with eag Hemoglobin a1c with eag Lab Routine Prediabetes Expected: 08/15/2024 (Approximate), Expires: 02/12/2025 [facility] Comment on above: Expected: 08/15/2024 (Approximate), Expi res: 02/12/2025 Start: 08-15-2024 End: 02-12-2025 Microalbumin/Creatinine panel in random Urine Microalbumin / creatinine urine ratio Lab Routine Essential hypertension ([facility]) Expected: 08/15/2024 (Approximate), Expires: 02/12/2025 [facility] Comment on above: Expected: 08/15/2024 (Approximate), Expi res: 02/12/2025 Start: 08-15-2024 End: 02-12-2025 Urinalysis complete panel - Urine Urinalysis with microscopic Lab Routine Essential hypertension ([facility]/HCC) Expected: 08/15/2024, Expires: 02/12/2025 [facility] Comment on above: Expected: 08/15/2024, Expires: Start: 07-30-2024 Urine screening for protein Diabetes: Urine Protein Screening [facility] Start: 07-22-2024 End: 07-22-2024 Patient encounter procedure [facility] Comment on above: History of right knee joint replacement (Primary Dx); Acute pain of right knee; Strain of right shoulder, initial encounter Start: 07-20-2024 End: 07-20-2024 Patient encounter procedure [facility] Start: 04-24-2024 End: 04-24-2024 Patient encounter procedure 04/24/2024 9:00 AM EDT Office Visit [facility] [address] [place] [address] Jr. Yeimi Cardenas C, DO [address] [facility] [address] [place] [address] [facility] Start: 04-22-2024 End: 04-22-2024 Patient encounter procedure 04/22/2024 8:00 AM EDT Office Visit [facility] [address] [place] [address] Jr. Yeimi Cardenas, DO [address] [place] [address] Arrived [facility] Comment on above: Arrived Start: 04-10-2024 End: 04-10-2025 MR Shoulder - right WO contrast MR shoulder right wo IV contrast Imaging Routine Internal derangement of right shoulder Expected: 04/10/2024 (Approximate), Expires: 04/10/2025 [facility] Work Phone: Comment on above: Expected: 04/10/2024 (Approximate), Expi res: 04/10/2025 Start: 04-10-2024 End: 04-10-2024 Patient encounter procedure 04/10/2024 11:00 AM EDT Office Visit [facility] [address] [place] [address] Jr. Yeimi Cardenas, DO [address] [place] [address] Acute pain of right shoulder [facility] Comment on above: Acute pain of right shoulder Start: 02-23-2024 Influenza vaccination Influenza Vaccine (#1) [facility] Start: 02-13-2024 End: 02-13-2024 Patient encounter procedure [facility] Start: 01-29-2024 End: 07-31-2024 25-hydroxyvitamin D3 [Mass/volume] in Serum or Plasma Vitamin D 25 hydroxy Lab Routine Vitamin D deficiency Expected: 01/29/2024 (Approximate), Expires: 07/31/2024 [facility] Comment on above: Expected: 01/29/2024 (Approximate), Expi res: 07/31/2024 Start: 01-29-2024 End: 07-31-2024 CBC W Auto Differential panel - Blood CBC and differential Lab Routine Essential (primary) hypertension (CMS/HCC) Expected: 01/29/2024 (Approximate), Expires: 07/31/2024 [facility] Work Phone: Comment on above: Expected: 01/29/2024 (Approximate), Expi res: 07/31/2024 Start: 01-29-2024 End: 01-29-2024 Comprehensive metabolic 2000 panel - Serum or Plasma Comprehensive metabolic panel Lab Routine Essential (primary) hypertension (CMS/HCC) Expected: 01/29/2024 (Approximate), Expires: 01/29/2024 [facility] Comment on above: Expected: 01/29/2024 (Approximate), Expi res: 01/29/2024 Start: 01-29-2024 End: 07-31-2024 Lipid 1996 panel - Serum or Plasma Lipid panel Lab Routine Pure hypercholesterolemia (CMS/HCC) Expected: 01/29/2024 (Approximate), Expires: 07/31/2024 [facility] Comment on above: Expected: 01/29/2024 (Approximate), Expi res: 07/31/2024 Start: 01-24-2024 Medicare Annual Wellness (AWV) Medicare Annual Wellness (AWV) [facility] Start: 01-17-2024 DIABETES SCREEN DIABETES SCREEN [facility] Start: 01-17-2024 Diabetes Screening Diabetes Screening [facility] Start: 11-29-2023 End: 11-29-2023 ambulatory 11/29/2023 12:00 PM EDT Results Only [place] [address] [place] [address] PSA/PROSTSPECAG DIAG [place] [address] [address] Comment on above: PSA/PROSTSPECAG DIAG Start: 11-20-2023 End: 06-20-2024 MRI PROSTATE WO/W IVCON MRI PROSTATE WO/W IVCON Radiology Routine Prostate cancer (HCC) Expected: 11/20/2023, Expires: 06/20/2024 [facility] Work Phone: Comment on above: Expected: 11/20/2023, Expires: Start: 11-20-2023 End: 02-19-2024 Prostate specific Ag [Mass/volume] in Serum or Plasma PSA/PROSTSPECAG DIAG Lab Routine Prostate cancer (HCC) Expected: 11/20/2023, Expires: 02/19/2024 [facility] Work Phone: Comment on above: Expected: 11/20/2023, Expires: Start: 08-15-2023 Covid-19 Vaccine () Covid-19 Vaccine () [facility] Start: 07-31-2023 End: 07-31-2023 Patient encounter procedure 07/31/2023 9:15 AM EST Office Visit [facility] [address] [place] [id number] Annette Block MD [address] [place] [address] Essential (primary) hypertension (CMS/HCC) (Primary Dx); Pure hypercholesterolemia (CMS/HCC); Prediabetes; 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); Gastroesophageal reflux disease without esophagitis; Generalized anxiety disorder (CMS/HCC); Osteopenia of multiple sites; Primary insomnia; Primary osteoarthritis involving multiple joints; Factor V Leiden (CMS/HCC); Vitamin D deficiency; History of malignant neoplasm of prostate; Morbid obesity (CMS/HCC) [facility] Comment on above: Essential (primary) hypertension (CMS/HC C) (Primary Dx); Pure hypercholesterolemia (CMS/HCC); Prediabetes; 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); Gastroesophageal reflux disease without esophagitis; Generalized anxiety disorder (CMS/HCC); Osteopenia of multiple sites; Primary insomnia; Primary osteoarthritis involving multiple joints; Factor V Leiden (CMS/HCC); Vitamin D deficiency; History of malignant neoplasm of prostate; Morbid obesity (CMS/HCC) Start: 07-21-2023 Urine screening for protein Diabetes: Urine Protein Screening [facility] Start: 06-24-2023 Advance Directive Discussion Advance Directive Discussion [facility] Start: 06-24-2023 Behavioral Health Screening Behavioral Health Screening [facility] Start: 04-28-2023 End: 10-27-2023 Prostate specific Ag [Mass/volume] in Serum or Plasma PSA/PROSTSPECAG DIAG Lab Routine Prostate cancer (HCC) Expected: 04/28/2023, Expires: 10/27/2023 [facility] Work Phone: Comment on above: Expected: 04/28/2023, Expires: Start: 10-19-2022 Hemoglobin A1c measurement Diabetes: Hemoglobin A1C [facility] Start: 10-19-2022 End: 12-19-2022 Prostate specific Ag [Mass/volume] in Serum or Plasma PSA/PROSTSPECAG DIAG Lab Routine Prostate cancer (HCC) Expected: 10/19/2022, Expires: 12/19/2022 [facility] Work Phone: Comment on above: Expected: 10/19/2022, Expires: Start: 06-24-2022 ADVANCE DIRECTIVE DISCUSSION ADVANCE DIRECTIVE DISCUSSION [facility] Start: 06-24-2022 DEPRESSION ASSESSMENT DEPRESSION ASSESSMENT [facility] Start: 04-10-2022 End: 03-18-2023 Prostate specific Ag [Mass/volume] in Serum or Plasma PSA/PROSTSPECAG DIAG Lab Routine Prostate cancer (HCC) Expected: 04/10/2022 (Approximate), Expires: 03/18/2023 [facility] Work Phone: Comment on above: Expected: 04/10/2022 (Approximate), Expi res: 03/18/2023 Start: 02-22-2022 Influenza vaccination INFLUENZA (#1) [facility] Start: 01-16-2022 Pneumococcal Vaccine: 65+ (2 - PCV) Pneumococcal Vaccine: 65+ (2 - PCV) [facility] Start: 01-16-2022 Pneumococcal Vaccine: 65+ (2 of 2 - PCV) Pneumococcal Vaccine: 65+ (2 of 2 - PCV) [facility] Start: 01-16-2022 Pneumococcal Vaccine: 65+ Years (2 - PCV) Pneumococcal Vaccine: 65+ Years (2 - PCV) [facility] Start: 01-16-2022 Pneumococcal Vaccine: 65+ Years (2 of 2 - PCV) Pneumococcal Vaccine: 65+ Years (2 of 2 - PCV) [facility] Start: 06-24-2021 ADVANCE DIRECTIVE DISCUSSION ADVANCE DIRECTIVE DISCUSSION [facility] Start: 06-24-2021 DEPRESSION ASSESSMENT DEPRESSION ASSESSMENT [facility] Start: 06-10-2021 COVID-19 VACCINE (5 - Booster for Moderna series) COVID-19 VACCINE (5 - Booster for Moderna series) [facility] Start: 2021 Glaucoma screening Diabetes: Retinopathy Screening [facility] Start: 2020 PNEUMOCOCCAL: 65+ (1 - PCV) PNEUMOCOCCAL: 65+ (1 - PCV) [facility] Start: 2020 PNEUMOVAX AGE 65 AND OVER WITH 5YR LOOKBACK (#1) PNEUMOVAX AGE 65 AND OVER WITH 5YR LOOKBACK (#1) [facility] Start: 2015 RSV Vaccine (1 - 1-dose 60+ series) RSV Vaccine (1 - 1-dose 60+ series) [facility] Start: 2010 PROSTATE CANCER SCREENING DISCUSSION PROSTATE CANCER SCREENING DISCUSSION [facility] Start: 2005 SHINGRIX VACCINE (1 of 2) SHINGRIX [facility]ACCINE ([facility] of 2[facility] Start: 01-23-2003 Diabetes Screening Diabetes Screening [facility] Start: 2000 COLOGUARD (FIT-DNA) COLOGUARD (FIT-DNA) [facility] Start: 2000 Colonoscopy COLONOSCOPY [facility] Start: 2000 COLORECTAL CANCER SCREENING COLORECTAL CANCER SCREENING [facility] Start: [address] COLONOGRAPHY [facility] Start: 2000 FECAL OCCULT BLOOD FECAL OCCULT BLOOD [facility] Start: 2000 Screening for malignant neoplasm of colon [facility] Start: 2000 SIGMOIDOSCOPY SIGMOIDOSCOPY [facility] Start: 1990 Lipid 1996 panel - Serum or Plasma Lipid Screening [facility] Start: 1990 Lipid panel Lipid Screening [facility] Start: 1990 LIPID SCREEN LIPID SCREEN [facility] Start: 1974 SHINGRIX VACCINE (1 of 2) [facility]ING[facility] 2) [facility] Start: 1974 Urine microalbumin profile DTAP,TDAP,TD (1 - Tdap) [facility] Start: 1973 HEPATITIS C SCREENING HEPATITIS C SCREENING [facility] Start: 1973 Hepatitis C screening Hepatitis C Screening [facility] Start: 1967 Adult depression screening assessment DEPRESSION SCREENING [facility] Start: 1961 PNEUMOCOCCAL: 65+ (1 - PCV) PNEUMOCOCCAL: 65+ (1 - PCV) [facility] Start: 1955 Screening for malignant neoplasm of colon [facility] DXA Skeletal system Views for bone density DEXA bone density Imaging Routine Osteopenia of multiple sites Ordered: 02/13/2024 [facility] Comment on above: Ordered: 02/13/2024 End: 06-20-2024 MRI 3D POST PROCESSING MRI 3D POST PROCESSING Radiology Routine Prostate cancer (HCC) 1 Occurrences starting 05/22/2023 until 06/20/2024 [facility] Work Phone: Comment on above: 1 Occurrences starting 05/22/2023 until 06/20/2024 End: 11-21-2024 Prostate specific Ag [Mass/volume] in Serum or Plasma PROSTATE-SPECIFIC ANTIGEN DIAGNOSTIC Lab Routine Prostate cancer (HCC) Every 6 months for 3 Occurrences starting 11/22/2023 until 11/21/2024 [facility] Work Phone: Comment on above: Every 6 months for 3 Occurrences startin g 11/22/2023 until 11/21/2024 XR Chest 2 Views XR chest 2 view s Imaging Routine Acute cough Bronchitis Decreased breath sounds at right lung base 07/01/2024 10:27 AM EST [facility] Work Phone: [facility] Immunizations Immunization Date Immunization Notes Care Provider Jamila banegas 04-08-2024 Seasonal trivalent influenza vaccine, adjuvanted, preservative free Stepanic DO Work Phone: [facility] 04-08-2024 influenza virus vacc ine, unspecified formulation Stepanic DO Work Phone: [facility] 05-26-2023 RSV, recombinant, pr otein subunit RSVpreF, adjuvant reconstitu, 120mcg/0.5mL, PF (Arexvy) Annette Block MD Work Phone: [facility] 04-14-2023 Influenza, Seasonal, Quadrivalent, Adjuvanted Annette Block MD Work Phone: [facility] 04-14-2023 SARS-COV-2 (COVID-19 ) vaccine, mRNA, spike protein, LNP, PF, wellington-sucrose, 30 mcg/0.3 mL Annette Block MD Work Phone: [facility] 04-14-2023 influenza virus vacc ine, unspecified formulation Generic Provider [facility] 04-14-2022 Influenza, Seasonal, Quadrivalent, Adjuvanted Annette Block MD Work Phone: [facility] 06-04-2021 zoster vaccine recombinant Adrian Block MD Work Phone: [facility] 04-02-2021 Influenza, Seasonal, Quadrivalent, Adjuvanted Annette Block MD Work Phone: [facility] 04-02-2021 zoster vaccine recombinant Adrian Block MD Work Phone: [facility] 03-28-2021 SARS-CoV-2, Unspecified Walt Block MD Work Phone: [facility] 01-16-2021 pneumococcal polysaccharide vaccine, 23 valent Annette Block MD Work Phone: [facility] 09-14-2020 SARS-CoV-2, Unspecified Jr. Stepanic DO Work Phone: [facility] 08-18-2020 SARS-CoV-2, Unspecified Jr. Stepanic DO Work Phone: [facility] 03-22-2020 influenza, injectabl e, quadrivalent, preservative free Annette Block MD Work Phone: [facility] 05-25-2019 influenza, injectabl e, quadrivalent, preservative free Annette Block MD Work Phone: [facility] 03-24-2018 influenza, seasonal, injectable, preservative free Jr. Stepanic DO Work Phone: [facility] 03-17-2018 influenza, injectabl e, quadrivalent, preservative free Annette Block MD Work Phone: [facility] 02-03-2018 tetanus toxoid, redu umang diphtheria toxoid, and acellular pertussis vaccine, adsorbed Annette Block MD Work Phone: [facility] 01-02-2017 zoster vaccine, live Annette Block MD Work Phone: [facility] 05-19-2016 influenza, seasonal, injectable, preservative free Jr. Cardenas DO Work Phone: [facility] Healthcare Payers Date Payer Category Payer Medicare [id number] 2023 Private Health Insurance [employer] Member Subscriber Plan / Payer (Effective 2023-Present) Name: Marco Antonio Benitez Relation to Subscriber: Self Name: Marco Antonio Benitez Payer ID: Not on file Type: Not on file Address: [address] [place] [id number] 2023 Medicare [id number] 2023 Medicare [id number] 2022 Unknown [id number] 2019 Unknown [id number] 2019 Unknown MMO MMO [employer]US [id number] 2019-Present [phone] [address] [place] [address] PPO [id number] 2019 Unknown [id number]. [id number] 2018 Self-pay 2018 Unknown [id number] 1955 Unknown [id number] 2.16.840.1.984976.3.579.2. 647 1955 Unknown [id number] 2.16.840.1.129206.3.579.2. 593 1955 Unknown [id number] 2.16.840.1.500731.3.579.2. 593 1955 Unknown [id number] 2.16.840.1.112797.3.579.2. 593 1955 Unknown [id number] 2.16.840.1.987075.3.579.2. 593 1955 Unknown [id number] 2.16.840.1.705905.3.579.2. 593 1955 Unknown [id number] 2.16.840.1.575703.3.579.2. 593 1955 Unknown [id number] 2..840.1.743086.3.579.2. 593 1955 Unknown [id number] 2.16.840.1.213520.3.579.2. 593 1955 Unknown [id number] 2.16.840.1.635835.3.579.2. 593 1955 Unknown [id number] 2.16.840.1.074066.3.579.2. 1259 1955 Unknown [id number] 2..840.1.763756.3.579.2. 1259 1955 Unknown [id number] 2.16.840.1.230832.3.579.2. 1259 1955 Unknown [id number] 2.16.840.1.638479.3.579.2. 1259 1955 Unknown [id number] 2.16.840.1.885092.3.579.2. 1259 1955 Unknown [id number] 2.16.840.1.587573.3.579.2. 1259 1955 Unknown [id number] 2.16.840.1.966223.3.579.2. 1259 1955 Unknown [id number] 2.16.840.1.044570.3.579.2. 1259 1955 Unknown [id number] 2.16.840.1.662157.3.579.2. 1259 1955 Unknown [id number] 2.16.840.1.912783.3.579.2. 1259 1955 Unknown [id number] 2.16.840.1.112320.3.579.2. 1259 Unknown [id number] 2.16.840.1.934580.3.579.2. 462 Unknown [id number] 2.16.840.1.799033.3.579.2. 531 Social History Date Type Detail Facility Tobacco smoking status INIS Tobacco smoking consumption unknown [facility] Work Phone: Start: 1955 Sex Assigned At Male C [facility] Start: 10-17-2021 End: 04-12-2022 Exposure to SARS-CoV-2 (event) Not sure [facility] Start: 10-26-2022 End: 02-12-2024 Sex Assigned At [facility] Start: 04-07-2020 End: 11-20-2022 Tobacco smoking status NHIS Never smoked tobacco (finding) [facility] Start: 10-26-2022 End: 02-12-2024 History of Social function [facility] National Score (1-100), lower number is lower risk 62 [facility] Start: 09-03-2021 Gender identity Identifies as male gender (finding) [facility] Start: 11-20-2022 Tobacco use and exposure Smokeless tobacco non-user [facility] Start: 07-25-2023 End: 07-01-2024 Alcohol intake Current drinker of alcohol (finding) [facility] Start: 01-23-2023 Alcohol Comment Caffeine: 2 cups moo ly [facility] Start: 1955 Sex Assigned At Not on file [facility] Medical Equipment Procedure Code Equipment Code Equipment Origin al Text Equipment Identifier Dates Arthroplasty, knee, total, minimally invasive ART SURF RT 10MM 10-12 GH FDA Start: 04-07-2020 Arthroplasty, knee, total, minimally invasive Orthopaedic cement, non-medicated [id number] FDA Start: 04-07-2020 Arthroplasty, knee, total, minimally invasive Uncoated knee femur prosthesis ()[id number] FDA Start: 04-07-2020 Arthroplasty, knee, total, minimally invasive Uncoated knee tibia prosthesis, metallic ()[id number] FDA Start: 04-07-2020 Arthroplasty, knee, total, minimally invasive Polyethylene patella prosthesis ()[id number] FDA Start: 04-07-2020 Arthroplasty, knee, total, minimally [...] CVD CAP LOX II FDA Start: 04-02-2018 PRAEVEN 55MM CVD CAP LOX II FDA Start: [...] FDA Start: 04-02-2018 Clinical Notes 10-27-2021 to 07-22-2024 Adalberto Lyn, ADRIENNE - 07/22/2024 8:00 AM ESTTelephone Encounter - Gretchen Lozano LPN - 07/01/2024 12:06 PM ESTTelephone Encounter - Gretchen Lozano LPN - 07/01/2024 12:06 PM EST Note Date & Type Note Facility 07-22-2024 History of Present illness Narrative Images from the original note were not included. HISTORY OF PRESENT ILLNESS: EST PT Marco Antonio Benitez is an 69 y.o. @ male. (EST PT) - HERE FOR YEARLY RECHECK OF (R) TKA 04/07/20 (4 YRS, 3 MONTHS, 2 WKS) XRAYS TODAY, 07/22/24 IN [facility] X[facility]YS 07/15/23 IN [facility] FINISHED PHYSICAL THERAPY ; POST-OP OLD NOTE: DOING WELL. SOME OCCASIONAL DISCOMFORT - SOME STIFFNESS IN THE AM ; OTHERWISE GOOD ROM - NOTES [facility] LIMITED ROM WITH FLEXION. DENIES ANY INSTABILTIY / WEAKNESS. DENIES ANY SWELLING - CONTINUES TO WEAR COMPRESSIONS SOCKS. TYL / ARTHROTEC DAILY. (EST PT) - RECHECK (R) SHOULDER ROM / STRENGTH XRAYS, 04/10/24 IN [facility] MRI, 04/16/24 IN [facility] NO MDP / PREDNISONE NO CORTISONE INJ NO PHYSICAL THERAPY NO PAIN MGMT DOING WELL. GOOD ROM. NO DISCOMFORT WITH MOVEMENTS. DENIES N/T. NO WEAKNESS. ALLERGIES: No Known Allergies HOME MEDICATIONS: Current Outpatient Medications Medication Instructions acetaminophen (Tylenol Extra Strength) 500 MG tablet Every 6 hours ALPRAZolam (XANAX) 0.5 mg, 2 times daily PRN aspirin 81 mg, Daily atorvastatin (LIPITOR) 80 mg, Nightly benzonatate (TESSALON) 100 mg, Oral, 3 times daily PRN, Do not crush or chew. cetirizine (ZYRTEC ALLERGY) 10 mg, Daily Cholecalciferol (Vitamin D) 50 MCG (1999 UT) capsule 1 capsule, Daily diclofenac (Voltaren) 75 MG EC tablet TAKE 1 TABLET BY MOUTH WITH FOOD OR MILK TWICE DAILY docusate sodium (Colace) 100 MG capsule 1 capsule, 2 times daily guaiFENesin-codeine (Robitussin-AC) 100-10 MG/5ML syrup 5-10 mL, Oral, 4 times daily PRN metoprolol succinate XL (TOPROL XL) 25 mg, Daily omeprazole (PRILOSEC) 20 mg, Oral, Daily Ozempic (0.25 or 0.5 MG/DOSE) 0.5 mg, Subcutaneous, Weekly polyethylene glycol (PEG) 3350 (MIRALAX) 17 g, Daily PRN sildenafil (VIAGRA) 100 mg, Oral, Daily PRN zolpidem (AMBIEN) 5 mg, Nightly PRN PHYSICAL EXAM: Right Knee Exam Tenderness The patient is experiencing no tenderness. Range of Motion Extension: 5 Flexion: 100 Tests Varus: negative Valgus: negative Other Erythema: absent Scars: present Sensation: normal Pulse: present Swelling: none Right Shoulder Exam Tenderness The patient is experiencing no tenderness. Range of Motion Forward flexion: normal Muscle Strength Abduction: 5/5 Other Sensation: normal Vitals: There is no height or weight on file to calculate BMI. Tobacco Use: Low Risk (07/01/2024) Patient History Smoking Tobacco Use: Never Smokeless Tobacco Use: Never Passive Exposure: Not on file Alcohol Use: Not on file IMAGING: XR knee 1 or 2 views right Imaging Result: 07/22/2024: Standing AP and LAT of right knee showed surgical position and alignment of prosthetic components without evidence of loosening or wear to the femoral, tibial, or patellar components. The alignment appeared to be anatomic. There was no evidence of accelerated or asymmetric wear to the patellar button or tibial tray. There was no evidence of fracture and/or dislocation. Impression: Stable RT total knee replacement. 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 History of right knee joint replacement Z96.651 2. Acute pain of right knee M25.561 XR knee 1 or 2 views right 3. Strain of right shoulder, initial encounter S46.317R PLAN: I reviewed xray of the right knee with patient which showed stable RT TKA. He states he is doing well with his right shoulder and knee with improved strength in right shoulder. He will follow up in 1 year for RCK and xray of the right knee. Questions answered in laymen terms at the bedside. The diagnosis, home exercise plan and any ongoing restrictions/ recommendations reviewed. If unable to be reached in office, I recommend evaluation at nearest Emergency Room if any symptoms worsened or new symptoms develop for requiring urgent evaluation. documented in this encounter [facility] 07-01-2024 Telephone encounter Note states louissalkelsi bhardwaj does not work for him. Requesting Cheratussin RX RX loaded [facility] 07-01-2024 Miscellaneous Notes states tessalon perles does not work for him. Requesting Cheratussin RX RX loaded documented in this encounter [facility] 07-01-2024 History of Present illness Narrative Images from the original note were not included. Marco Antonio Benitez is a 69 y.o. male presents with chief complaint of URI (Patient is here today with complaints of URI that began 10 days ago. ) HPI: HPI History of Present Illness The patient is a 69-year-old male who presents today for cough and congestion. He has head pressure, ear fullness, but feels mostly in his chest. Cough keeping him awake at night and has chest congestion. I have reviewed and reconciled the history and medication list with the patient today. HISTORIES: PAST MEDICAL HISTORY: Past Medical History: [...] repair TOTAL KNEE ARTHROPLASTY Right VASECTOMY 1997 SOCIAL HISTORY: Social History Tobacco Use Smoking status: Never Smokeless tobacco: Never Vaping Use Vaping status: Never Used Substance Use Topics Alcohol use: Yes Alcohol/week: 1.0 standard drink of alcohol Types: 1 Glasses of wine per week Comment: Caffeine: 2 cups daily Drug use: Never Depression: Not at risk (02/12/2024) PHQ-2 PHQ-2 Score: 0 FAMILY HISTORY: Family History Problem Relation Name Age of Onset Cancer Mother Mother Stroke Father Heart disease Father Muscular dystrophy Son Cancer Brother Danny Heart disease Brother Bill Heart disease Brother Tera Hypertension Brother Tera MEDICATIONS: Current Outpatient Medications Medication Instructions acetaminophen (Tylenol Extra Strength) 500 MG tablet Every 6 hours ALPRAZolam (XANAX) 0.5 mg, 2 times daily PRN aspirin 81 mg, Daily atorvastatin (LIPITOR) 80 mg, Nightly cetirizine (ZYRTEC ALLERGY) 10 mg, Daily Cholecalciferol (Vitamin D) 50 MCG (1999 UT) capsule 1 capsule, Daily diclofenac (Voltaren) 75 MG EC tablet TAKE 1 TABLET BY MOUTH WITH FOOD OR MILK TWICE DAILY docusate sodium (Colace) 100 MG capsule 1 capsule, 2 times daily metoprolol succinate XL (TOPROL XL) 25 mg, Daily omeprazole (PRILOSEC) 20 mg, Oral, Daily Ozempic (0.25 or 0.5 MG/DOSE) 0.5 mg, Subcutaneous, Weekly polyethylene glycol (PEG) 3350 (MIRALAX) 17 g, Daily PRN sildenafil (VIAGRA) 100 mg, Oral, Daily PRN triamcinolone (Kenalog) 0.1 % cream APPLY TO LOWER LEGS TWICE DAILY UNTIL CLEAR, THEN USE NEEDED FOR ITCH zolpidem (AMBIEN) 5 mg, Nightly PRN ALLERGIES: No Known Allergies PHYSICAL EXAM: Visit Vitals BP 122/76 Pulse 85 Temp 97.9 F Ht 5' 8 Wt 227 lb SpO2 96% BMI 34.52 kg/m Smoking Status Never BSA 2.22 m BP Readings from Last 3 Encounters: 07/01/24 122/76 02/13/24 128/80 07/31/23 124/76 Wt Readings from Last 3 Encounters: 07/01/24 227 lb 02/13/24 222 lb 6.4 oz 07/31/23 216 lb Physical Exam Constitutional: General: He is not in acute distress. Appearance: Normal appearance. He is ill-appearing. HENT: Head: Normocephalic. Right Ear: Tympanic membrane normal. Left Ear: Tympanic membrane normal. Nose: Nose normal. Mouth/Throat: Mouth: Mucous membranes are moist. Pharynx: Oropharynx is clear. Eyes: Extraocular Movements: Extraocular movements intact. Neck: Thyroid: No thyromegaly. Vascular: No carotid bruit. Cardiovascular: Rate and Rhythm: Normal rate and regular rhythm. Heart sounds: Normal heart sounds. No murmur heard. Pulmonary: Effort: No respiratory distress. Breath sounds: Normal breath sounds. Musculoskeletal: General: No swelling. Cervical back: Neck supple. No tenderness. Right lower leg: No edema. Left lower leg: No edema. Lymphadenopathy: Cervical: No cervical adenopathy. Skin: General: Skin is warm and dry. Neurological: Mental Status: He is oriented to person, place, and time. Psychiatric: Mood and Affect: Mood normal. Thought Content: Thought content normal. Judgment: Judgment normal. Results ASSESSMENT AND PLAN: Assessment & Plan 1. Acute cough (Primary) - benzonatate (Tessalon) 100 MG capsule; Take 1 capsule (100 mg) by mouth 3 (three) times a day as needed for cough Do not crush or chew. Dispense: 42 capsule; Refill: 0 - XR chest 2 views 2. Bronchitis - azithromycin (Zithromax) 250 MG tablet; Take 2 tabs (500 mg) by mouth today, than 1 tab (250 mg) daily for 4 days. Dispense: 6 tablet; Refill: 0 - XR chest 2 views 3. Decreased breath sounds at right lung base - XR chest 2 views documented in this encounter [facility] 05-25-2024 Note [facility] Cardiology Clinic Note Chief Complaint: Patient here for 1 year follow up CAD, dyslipidemia, and Factor V Leiden. Had routine labs with lipid panel in Jan 2024. Denies chest pain, SOB, and palpitations. Says he saw hematology since last visit and they did not start anticoagulation. HPI: Marco Antonio Benitez is a 68 y.o. male With a history of nonobstructive coronary artery disease, abnormal coronary calcium CT score, dyslipidemia Doing well. No new symptoms Physically active at home. No exertional chest pain, no exertional chest pressure, no shortness of breath. Denies orthopnea, paroxysmal tunnel dyspnea, or worsening lower extremity edema. Cardiology ROS: Review of Systems Cardiovascular: Positive [...] of Onset Sick sinus syndrome Father Other (premature CAD) Other Allergies Patient has no known allergies. Medications [...] tablet, in the morning., Disp: , Rfl: cholecalciferol, vitamin D3, 50 mcg (2,000 unit) capsule, Take 1 capsule by mouth in the morning., Disp: , Rfl: diclofenac (Voltaren) 75 mg EC tablet, Take 75 mg by mouth in the morning and at bedtime., Disp: , Rfl: metoprolol succinate XL (Toprol-XL) 25 mg 24 hr tablet, TAKE 1 TABLET BY MOUTH EVERY DAY DIRECTED, Disp: 90 tablet, Rfl: 3 omeprazole (PriLOSEC) [address] capsule, Take 1 tablet by mouth in the morning., Disp: , Rfl: semaglutide (Rybelsus) 7 mg tablet, Take 7 mg by mouth once daily as directed., Disp: , Rfl: zolpidem (Ambien) 5 mg tablet, Take 1 tablet by mouth if needed., Disp: , Rfl: Last Recorded Vitals BP 107/70 (BP Location: Left arm, Patient Position: Sitting) Pulse 63 Ht 1.727 m (5' 8 ) Wt 101 kg (223 lb) SpO2 97% BMI 33.91 kg/m??? Ht 1.727 m (5' 8 ) BMI 32.99 kg/m??? Physical Examination: GENERAL: alert [...] function. Mild mitral regurgitation. Mild aortic regurgitation Echocardiogram 06/12/2023: Global left ventricular systolic function is hyperdynamic; visually estimated ejection fraction is 65 to 70% Normal right ventricular size and systolic f (more content not included)... [facility] 05-11-2024 Telephone encounter Note Spoke with .. answered questions.. does not need antibiotic to get new crown cemented on, no drilling or work to gum/ teeth [facility] Work Phone: 05-11-2024 Miscellaneous Notes Spoke with [...] dentist from before if needed. Please advise [phone]. documented in this encounter [facility] 05-11-2024 Telephone encounter Note Patient's called regarding his upcoming dentist appointment. Patient already took antibiotic for the crown, he has to go back for the second part. They want to know if he needs the antibiotic for this. The dentist does not believe he does. They do already have the antibiotic from the dentist from before if needed. Please advise [phone]. [facility] 04-22-2024 History of Present illness Narrative Images from the original note were not included. HISTORY OF PRESENT ILLNESS: EST PT Marco Antonio Benitez is an 68 y.o. @ male. (EST PT) RECHECK (R) SHOULDER ; HERE FOR MRI RESULTS 04/16/24 IN [facility] XRAYS, 04/10/24 IN [facility] MRI, 04/16/24 IN [facility] NO MDP / PREDNISONE NO CORTISONE INJ [...] Cardenas D.O. documented in this encounter [facility] 04-10-2024 History of Present illness Narrative Images from the original note were not included. HISTORY OF PRESENT ILLNESS: EST PT Marco Antonio Benitez is an 68 y.o. @ male. (EST PT) NEW COMPLAINT, (R) SHOULDER DISCOMFORT. SYMPTOMS BEGAN 03/27/24 (2 WKS) - DENIES ANY INJURY XRAYS DONE TODAY, 04/10/24 IN [facility] NO MRI NO MDP / PREDNISONE NO [...] Cardenas D.O. documented in this encounter [facility] 02-13-2024 History of Present illness Narrative Images from the original note were not included. Marco Antonio Benitez is a 68 y.o. male presents with chief complaint of 6 Month Follow-up and Medicare Annual Wellness Visit Subsequent HPI: HPI Review lab drawn 02/11/2024. Patient is feeling good. He denies shortness of breath or chest pain. History of Present Illness The patient presents for evaluation of multiple medical concerns. 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 He reports no chest pain, shortness of breath, or bloating. He also reports no leg swelling. He is under the care of a urologist for his prostate cancer, with annual appointments. His PSA levels have been consistently low. He reports no presence of blood in his stool. He uses contact lenses and reports no ear wax accumulation. He takes Zyrtec for allergies, which he believes causes dryness in his ears. He also experiences itchiness in his ears. He has a living will and healthcare power of energy attorney in place. IMMUNIZATIONS He had shingles vaccine and pneumococcal vaccines. Respiratory: no cough, wheeze, or shortness of breath. Cardiac: no chest pain, no edema, no palpitations, dizziness or fainting Gastrointestinal: denies constipation, rectal bleeding Neurologic: denies memory loss, tingling/numbness, tremor Pt. can get up from the chair without using the arms of the chair in < 30 seconds. Denies issues with depression. Denies more than 2 falls in the past year. I have reviewed and reconciled the history and medication list with the patient today. CURRENT PCP/CARE TEAM: Patient Care Team: Annette Block MD as PCP - General (Internal Medicine) Dr. Salome Real (Urology) Jevon Zambrano MD as Referring Physician (Urology) Over the past 2 weeks, how often have you been bothered by any of the following problems? Little interest or pleasure in doing things: (P) Not at all Feeling down, depressed, or hopeless: (P) Not at all Patient Health Questionnaire-2 Score: (P) 0 Araiza Fall Risk History of Falling, Immediate or Within 3 Months: (P) No Secondary Diagnosis: (P) No Intravenous Therapy/Heparin Lock: (P) No Health Risk Assessment Form Do you need help eating, bathing, using the toilet, dressing, or getting around your home?: (P) No Can you prepare your own meals?: (P) Yes Can you do your own housework without help?: (P) Yes Can you shop for groceries or clothes without help?: (P) Yes Do you exercise for about 20 minutes 3 or more days a week?: (P) No How confident are you that you can control and manage most of your health problems?: (P) Very confident Can you mange your money, credit cards and accounts, pay bills and taxes?: (P) Yes Cognitive Screening Three Word Registration: Apple, Watch, Jane Clock Drawing: Normal Clock - 2 Three Word Recall: All 3 words correct - 3 Total Score (0-5 Points): 5 Pain Assessment Pain Score: (P) 5 - Moderate pain HISTORIES: PAST MEDICAL HISTORY: Past Medical History: [...] repair TOTAL KNEE ARTHROPLASTY Right VASECTOMY 1997 SOCIAL HISTORY: Social History Tobacco Use Smoking status: Never Smokeless tobacco: Never Vaping Use Vaping status: Never Used Substance Use Topics Alcohol use: Yes Alcohol/week: 1.0 standard drink of alcohol Types: 1 Glasses of wine per week Comment: Caffeine: 2 cups daily Drug use: Never Depression: Not at risk (02/12/2024) PHQ-2 PHQ-2 Score: 0 FAMILY HISTORY: Family History Problem Relation Name Age of Onset Cancer Mother Mother Stroke Father Heart disease Father Muscular dystrophy Son Cancer Brother Danny Heart disease Brother Bill Heart disease Brother Tera Hypertension Brother Tera MEDICATIONS: Current Outpatient Medications Medication Instructions acetaminophen [...] Oral, Nightly PRN ALLERGIES: No Known Allergies PHYSICAL EXAM: Visit Vitals BP 128/80 (BP Location: Left arm, Patient Position: Sitting) Pulse 80 Ht 5' 8 Wt 222 lb 6.4 oz SpO2 97% BMI 33.82 kg/m Smoking Status Never BSA 2.2 m BP Readings from Last 3 Encounters: 02/13/24 128/80 07/31/23 124/76 01/23/23 124/78 Wt Readings from Last 3 Encounters: 02/13/24 222 lb 6.4 oz 07/31/23 216 lb 01/23/23 218 lb 8 oz Physical Exam Physical Exam General Examination: alert, oriented, normal affect, well-appearing, in no acute distress, well developed, well nourished. Head: normocephalic, atraumatic Eyes: sclera non-icteric Ears: auditory canal clear, tympanic membrane intact, clear Oral Cavity: no lesions, mucosa moist Throat: clear, symmetrical rise of soft palate and uvula, no erythema or exudate Lymph Nodes: no cervical adenopathy Heart: regular rate and rhythm, S1, S2 normal Lungs: clear to auscultation bilaterally. No wheezes, rales, rhonchi. Extremities: no edema, no cyanosis Psych: alert, oriented, cognitive function intact, cooperative with exam. Results Laboratory Studies Cholesterol levels were perfect. LDL at 65, total cholesterol 126. Last A1c was 6.0. ASSESSMENT AND PLAN: Assessment & Plan 1. Essential hypertension. Blood pressure is under good control. Continue the current regimen. 2. Coronary artery disease. He sees [facility]. He reports no chest pain, shortness of breath, or palpitations. 3. Generalized anxiety disorder. Stable. Continue to monitor. 4. Hyperlipidemia. His lipids are at goal with his LDL at 65 and total cholesterol at 126. Continue the current regimen. 5. Prediabetes. His last A1c was 6.0, checked roughly 6 months ago. It will be rechecked with the next labs. 6. Osteopenia. His last DEXA scan was in 2019 and showed mild osteopenia with a score of -1.1 being his worst. A repeat DEXA scan will be ordered to ensure bone density remains stable. 7. Medicare annual wellness Seen by Evette Duffy PA-C in conjunction with PCP. Patient here for annual Medicare Wellness visit. Demographics were updated. Self-assessment was completed. Past medical, family, and social history were updated. The medication list, including supplements being taken, was updated. A list of other current medical providers was established/updated. Time was spent discussing health maintenance issues, ordering proper testing, and a schedule was provided regarding recommended screening. We discussed safety issues and fall risk. Depression screening was completed and addressed. Fall screening was completed and addressed. Cognitive function was assessed by direct observation and assessment of ability to perform ADL's and IADL's was done. The current BMI was provide and will continue to be monitored at routine office visits as well. Major risk factors for chronic disease including family history were discussed and a list was provided with the care plan. He had a colonoscopy in 2016 and is on a 10-year track. He received the shingles vaccine recently. A routine eye check-up with Dr. Gayle is planned, we will request. 8. Advance care planning. He has a living will and healthcare power of energy attorney in place. Wishes to be full code. 9. Primary insomnia Stable, continue to monitor. Patient is here for follow up of the above chronic problems. I am following Dr. Block's established plan of care for these issues. Dr. Block was in the office suite today and is supervising patient care. documented in this encounter [facility] 11-22-2023 History of Present illness Narrative REASON [...] - No malignancy. 3 cores of CHIRAG. 08/25/2020:[place] 3+3, 2/12 cores 05/28/2019: [place] 3+3=6, 1/12 cores PSA today: 11/15/23 - [...] Jevon Zambrano MD documented in this encounter [facility] 11-22-2023 Note HNO ID: [id number] Author: JEVON ZAMBRANO MD Service: ? Author [...] - No malignancy. 3 cores of CHIRAG. 08/25/2020:[place] 3+3, 2/12 cores 05/28/2019: Nina 3+3=6, 1/12 [...] up in 1 year Jevon Zambrano MD [facility] 11-22-2023 History of Present illness Narrative [...] PATIENT PRESENTS WITH AN IMPLANTABLE OR ATTACHED DOCUMENT PROCESSOR: No RADIOLOGY DEPARTMENT: MR; Exam(s) Completed: Body: Prostate PERIPHERAL IV DATA: Site assessment: Clean,Dry and Intact, Site disposition Discontinued SIGNED BY: TOBIAS Joyner)Em November 22, 2023 11:51 AM documented in this encounter [facility] 11-22-2023 Note HNO ID: [id number] Author: CHRISTOPHER LACKEY RT (R) Service: Radiology [...] PATIENT PRESENTS WITH AN IMPLANTABLE OR ATTACHED DOCUMENT PROCESSOR: No RADIOLOGY DEPARTMENT: MR; Exam(s) Completed: Body: Prostate PERIPHERAL IV DATA: Site assessment: Clean,Dry and Intact, Site disposition Discontinued SIGNED BY: TOBIAS Joyner), Em Andre RT November 22, 2023 11:51 AM [facility] 11-22-2023 Note HNO ID: [id number] Author: GLENDA BASILIO RN Service: Nursing Author [...] Glenda Basilio RN PATIENT NAME: Marco Antonio Longoria Emmanuel DATE: November 22, 2023 TIME: 11:22 AM [facility] 11-22-2023 Note Patient Outreach (UR OLMN) MARCO ANTONIO BENITEZ ([id number]) 1955 M Date Time Provider Department 11/22/23 JEVON ZAMBRANO During your visit today, we recorded the following information about you: Allergies As of Date: 11/22/2023 (No Known Allergies) Date Reviewed: 11/22/2023 Reviewed by: Jevon Zambrano MD - Fully Assessed Visit Diagnosis:Screening for genitourinary condition [Z13.89] Order(s):URINALYSIS, REFLEX MICROSCOPIC [[id number]] Order #: [id number]. #:[id number] Prescriptions as of 11/25/2023 - atorvastatin (LIPITOR) [...] cancer (HCC) [C61] 11/23/2021 Encounter Status:Closed by [employer] USATHOMAS on 11/25/23 [facility] 07-31-2023 History of Present illness Narrative [...] to diabetes. 4. 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 ([facility]) Doing well. Denies any anginal symptoms. Continue aggressive risk factor modification. Continue current medications. Call if any problems. 5. Gastroesophageal reflux disease without esophagitis Denies breakthrough symptoms with taking Omeprazole. 6. Generalized anxiety disorder ([facility]) Stable. He is not taking Alprazolam regularly. 7. Osteopenia of multiple sites Last DEXA 06/2018 showed osteopenia. 8. Primary insomnia Uses Ambien as needed. Continue current regimen. 9. Primary osteoarthritis involving multiple joints Uses Tylenol as needed for pain. 10. Factor V Leiden ([facility]) Stable. Continue to monitor. 11. Vitamin D deficiency He is taking supplement. Continue to monitor. - Vitamin D 25 hydroxy; Future - Vitamin D 25 hydroxy 12. History of malignant neoplasm of prostate He is following with Urology and getting PSA checked regularly. 13. Morbid obesity ([facility]) Encouraged to eat a healthy diet and exercise regularly. 14. BMI 32.0-32.9,adult As above. Dr. Block was present in the office at the time of visit today and is supervising patient care. I am following Dr. Block's established plan of care for the above issues. documented in this encounter [facility] 05-30-2023 Note [facility] Cardiology Clinic Note Chief Complaint: Patient here [...] history of Coronary artery disease, Diabetes mellitus ([facility]/HCC), Factor V Leiden ([facility]), Family history of premature CAD, Family history [...] Coronary atherosclerosis I25.10: Atherosclerotic heart disease of knik coronary artery without angina pectoris 2. Abnormal findings diagnostic imaging heart+coronary circulat - Abnormal calcium score 99th percentile for age and gender and race R93.1: Abnormal findings on diagnostic imaging of heart and coronary circulation 3. 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 Dysli (more content not included)... [facility] 05-22-2023 Note HNO ID: [id number] Author: Jevon Zambrano MD Service: ? Author Type: Physician Type: Progress Notes Filed: 05/22/2023 4:58 PM Note Text: VIRTUAL VISIT PROGRESS NOTE This is a virtual visit using [employer] Video Visit. It required patient-provider interaction for the medical decision making as documented below. I have communicated my name and active licensure. The patient's identity and physical location were verified at the time of this visit. 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 3 cores of CHIRAG. 08/25/2020:[place] 3+3, 2/12 cores 05/28/2019: Nina 3+3=6, 1/12 [...] with follow up after Jevon Zambrano MD [facility] 05-22-2023 History of Present illness Narrative VIRTUAL VISIT PROGRESS NOTE This is a virtual visit using [employer] Video Visit. It required patient-provider interaction for the medical decision making as documented below. I have communicated my name and active licensure. The patient's identity and physical location were verified at the time of this visit. 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 3 cores of CHIRAG. 08/25/2020:[place] 3+3, 2/ cores 05/28/2019: Nina 3+3=6, 1/12 [...] Jevon Zambrano MD documented in this encounter [facility] 03-05-2023 Evaluation note Encounter Date Diagnosis [...] History of lumbar fusion (ICD-10 - Z98.1) [facility] 05-05-2023 History of Present illness Narrative* Mark Anthony Real MD - 10/26/2022 10:30 AM EDT REASON FOR VISIT: Follow up for Adenocarcinoma of Prostate I have communicated my name and active licensure. The patient's identity and physical location wereverified at the time of this visit. 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 HPI: 67 year old male with prostate cancer on . Prostate Biopsies: 04/12/22 - No malignancy. 3 cores of CHIRAG. 08/25/2020:[place] 3+3, 2/12 cores 05/28/2019: Nina 3+3=6, 1/12 [...] 1 tablet by mouth once daily. multivit-mins/iron/folic/lycop (MV,CA,MED-TXYT-BY-LYCOPENE ORAL) Take 1 tablet by mouth once [...] 25, 2022 5:28 PM [facility] Miscellaneous Notes* Telephone Encounter - Mark Anthony Real MD - 04/20/2022 2:37 PM EDT I spoke with And Mrs. Benitez. Biopsy results are favorable. No malignancy noted. 3 cores of CHIRAG. We will continue with and recheck PSA in 6 months. Mark Anthony Real MD Department of Urology [employer] and Laparoscopy Fellow [facility] History of Present illness Narrative* Kim [...] Kim Saeed RN T documented in [facility] Nurse Note* Kim Saeed RN - [...] This Education Session: None Instruction Provided To:Patient Java J2Ee Software Engineer Present: not applicable Discipline: Nursing Learning Topic: Survival Skills: Complication Prevention Symptom Management Patient Evaluation: Verbalizes understanding: Yes Supplemental Material Given: Written Material Instructed By Kim Saeed RN In Department Urology . documented in this encounterC[facility] Procedure note* Hugo Garcia MD - 04/12/2022 1:40 PM EDT MR-US Fusion with Guided US for Transperineal Prostate Biopsy Report DIAGNOSIS: Low risk consulting sme HPI: GG1 consulting sme on . 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 MRI [...] reconstruction of the prostate gland using the Invenra system. Trans-rectal ultrasound with a guide was [...] MD May 14, 2022, documented [facility] Evaluation note* Encounter Date Diagnosis Assessment [...] History of lumbar fusion (ICD-10 - Z98.1) [facility] Other 08-31-2022 Miscellaneous Notes* Telephone Encounter - Mark Anthony Real MD - 02/21/2022 6:59 PM EDT Spoke with pt and his over the phone. We cannot accomodate 04/26 for TP biopsy. Offered 03/08, which does not work for the patient. We will move the date to 04/12/22. Mark Anthony Real MD Department of Urology [employer] and Laparoscopy Fellow documented in [facility] encounterC[facility] Evaluation note* Encounter Date Diagnosis Assessment [...] follow-up with me on an as-needed basis. [facility] Other 06-02-2022 History of Present illness Narrative* Hugo Garcia MD - 11/23/2021 11:45 AM EDT VIRTUAL VISIT PROGRESS NOTE This is a virtual visit using [employer] video visit. It required patient-provider interaction for the medical decision making as documented below. REASON FOR VISIT: Follow up for Adenocarcinoma of Prostate HPI: 66 year old male with prostate cancer on active surveillance for [place] 3+3 disease. His lastMRI October 2021 showed a PIRADS 3 lesion. Last PSA in August 2021 was 0.8. Prostate Biopsies: 08/25/2020:[place] 3+3, 2/12 cores 05/28/2019: Nina 3+3=6, 1/12 [...] 1 tablet by mouth once daily. multivit-mins/iron/folic/lycop (MV,CA,PXZ-WUBY-VU-LYCOPENE ORAL) Take 1 tablet by mouth once [...] with prostate cancer on active surveillance for [place] 3+3 disease. His last MRI October 2021 showed a PIRADS 3 lesion. Last PSA in August 2021 was 0.8. 1) Prostate cancer, [place] 3+3 disease 2) MRI 0.8 CM LEFT MID ANTERIOR TRANSITION ZONE PI-RADS 3 LESION PLAN: 1) PSA in 6 months 2) TP Prostate Biopsy in 6 months with nitrous gas Scribe Attestation: By signing my name below, ICandice, attest that this documentation has been prepared [...] MD I spent more than 30 minutes [id number] with the patient and over half the time was devoted to counseling and/or coordination of care. documented in this encounterC[facility]-2022 NotePROCEDURE: XR ANKLE LT MIN 3 [...] Electronically authenticated by: KEN REGAN Date: 2021-11-02 11:06[facility] NotePROCEDURE: XR ANKLE LT MIN 3 [...] Electronically authenticated by: KEN REGAN Date: 2021-11-02 11:06[facility]05-12-2022 NotePROCEDURE: XR FOOT RT MIN 3 [...] Electronically authenticated by: KEN REGAN Date: 2021-11-02 10:41[facility]05-06-2022 History of Present illness Narrative* Annette [...] 2021 TIME: 8:58 AM [facility]* Diagnosis Malignant neoplasm of prostate (HCC) Malignant neoplasm of prostate [facility]* Diagnosis Prostate cancer (HCC) Malignant neoplasm of prostate [facility] noteNo assessment information availableKnox [facility] Work Phone: Evaluation note* Diagnosis Prostate cancer (HCC)- Primary Malignant neoplasm of prostate [facility]* Diagnosis Prostate cancer (HCC)- Primary Malignant neoplasm of prostate [facility]* Diagnosis Elevated PSA- Primary Elevated prostate specific antigen (PSA) [facility]* Diagnosis Prostate cancer (HCC)- Primary Malignant neoplasm of prostate [facility]* Diagnosis Prostate cancer (HCC)- Primary Malignant neoplasm of prostate [facility]* Diagnosis Essential (primary) hypertension (CMS/HCC)- Primary Unspecified essential hypertension Pure hypercholesterolemia (CMS/HCC) Pure hypercholesterolemia Prediabetes Other abnormal glucose 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) Gastroesophageal reflux [...] obesity BMI 32.0-32.9,adult [facility] Diagnosis Prostate cancer (HCC)- Primary Malignant neoplasm of prostate Elevated PSA Elevated prostate specific antigen (PSA) [facility]* Diagnosis Prostate cancer (HCC) Malignant neoplasm of prostate [facility]* Diagnosis Screening for genitourinary condition Screening for other and unspecified genitourinary condition [facility] Diagnosis Acute pain of right shoulder- Primary Internal derangement of right shoulder [facility]* Diagnosis Internal derangement of right shoulder- Primary documented in this encounter [facility]* Diagnosis Essential hypertension (CMS/HCC)- Primary Unspecified essential hypertension 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) Prediabetes Other abnormal glucose Pure hypercholesterolemia (CMS/HCC) Pure hypercholesterolemia Generalized anxiety disorder (CMS/HCC) Generalized anxiety disorder Primary insomnia Persistent disorder of initiating or maintaining sleep Medicare annual wellness visit, subsequent ACP (advance care planning) Other specified counseling Prostate cancer screening Special screening for malignant neoplasm of prostate Osteopenia of multiple sites documented in this encounter [facility]* Diagnosis Acute cough- Primary Bronchitis Bronchitis, not specified as acute or chronic Decreased breath sounds at right lung base documented in this encounter [facility]* Diagnosis Acute cough- Primary documented in this encounter [facility]* Diagnosis History of right knee joint replacement- Primary Acute pain of right knee Strain of right shoulder, initial encounter documented in this encounter [facility] HealthcareHistory general Narrative - Reported* Type Description Date Medical History Blood clots Medical History factor V Surgical History hammertoe repair Surgical History vasectomy Surgical History hammer toe Surgical History vasectomy 1997 Surgical History colonoscopy 2009 Surgical History fusion, lisfranc fracture aleks Quarles 05/2016 Surgical History EGD/Colonoscopy (normal- 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 hemorrhoids) 04/15/17 Surgical History PLIF (posterior lumbar interbod y fusion) 04/02/18 Surgical History Right Knee Replacement 2019 Hospitalization History see above [facility] Other Summary Purpose Family History No Family [...] Unknown mother Malignant neoplasm Unknown Advance Directives No Advanced Directives Records Found Advance Directive Response Recorded Date/ Time Advance Directives Yes April 07, 2018 2:27pm Reason for Referral Specialty Diagnoses / Procedures Referred By Contac t Referred To Contact MR IMAGING Diagnoses Malignant neoplasm of prostate (HCC) Procedures MRI PROSTATE WO/W IVCON MRI PELVIS W/WO CONTRAST Navin Redman MD [address] [place] [address] Mr Imaging Referral ID Status Reason Start Date Expiration Date V isits Requested Visits Authorized [id number] Closed Auto-Generate d Referral 10/02/2021 11/06/2021 1 1 Specialty Diagnoses / Procedures Referred By Contac t Referred To Contact MR IMAGING Diagnoses Prostate cancer (HCC) Procedures MRI 3D POST PROCESSING 3D RENDERING W/INTERP&POSTPROC DIFF WORK STATION Jevon Zambrano MD [address] [place] [address] Mr Imaging [place] [address] Referral ID Status Reason Start Date Expiration Date Visits Requested Visits Authorized [id number] Pending Review Auto-Generat ed Referral 06/20/2024 1 1 Specialty Diagnoses / Procedures Referred By Contac t Referred To Contact MR IMAGING Diagnoses Prostate cancer (HCC) Procedures MRI PROSTATE WO/W IVCON MRI PELVIS W/O & W/CONTRAST MATERIAL Jevon Zambrano MD [address] [place] [address] Mr Imaging [place] [address] Referral ID Status Reason Start Date Expiration Date Visits Requested Visits Authorized [id number] Pending Review Auto-Generat ed Referral 11/20/2023 06/20/2024 1 1 Referral ID Status Reason Start Date Expiration Date V isits Requested Visits Authorized [id number] Closed Auto-Generate d Referral 05/22/2023 06/20/2024 1 1 Referral ID Status Reason Start Date Expiration Date V isits Requested Visits Authorized [id number] Closed Auto-Generate d Referral 11/20/2023 06/20/2024 1 [...] section and content) DATE CREATED AUTHOR 12/18/2017 [facility] DATE CREATED AUTHOR AUTHOR'S ORGANIZ ATION 12/18/2017 [facility] DATE CREATED AUTHOR AUTHOR'S ORGANIZ ATION 06/14/2018 [facility] DATE CREATED AUTHOR AUTHOR'S ORGANIZ ATION 10/26/2020 [facility] DATE CREATED AUTHOR AUTHOR'S ORGANIZ ATION 10/13/2021 [facility] DATE CREATED AUTHOR AUTHOR'S ORGANIZ ATION 10/08/2022 [facility] DATE CREATED AUTHOR AUTHOR'S ORGANIZ ATION 11/26/2023 [facility] DATE CREATED AUTHOR AUTHOR'S ORGANIZ ATION 03/06/2024 [facility] DATE CREATED AUTHOR AUTHOR'S ORGANIZ ATION 05/26/2024 [facility] DATE CREATED AUTHOR AUTHOR'S ORGANIZ ATION 07/27/2024 [facility] EPIC Source Comments (unrecognize d section and content) In the event this informatio n is protected by the Federal Confidentiality of Alcohol and Drug Abuse Patient Records regulations: The Federal rules restrict any use of the information to criminally investigate or prosecute any alcohol or drug abuse patient.[facility] Hospital[facility] the event this information is protected by the Federal Confidentiality of Alcohol and Drug Abuse Patient Records regulations: The Federal rules restrict any use of the information to criminally investigate or prosecute any alcohol or drug abuse patient.[facility] Hospital[facility] the event this information is protected by the Federal Confidentiality of Alcohol and Drug Abuse Patient Records regulations: The Federal rules restrict any use of the information to criminally investigate or prosecute any alcohol or drug abuse patient.[facility] HospitalIn the event this information is protected by the Federal Confidentiality of Alcohol and Drug Abuse Patient Records regulations: The Federal rules restrict any use of the information to criminally investigate or prosecute any alcohol or drug abuse patient.[facility] the event this information is protected by the Federal Confidentiality of Alcohol and Drug Abuse Patient Records regulations: The Federal rules restrict any use of the information to criminally investigate or prosecute any alcohol or drug abuse patient.[facility] Hospital[facility] the event this information is protected by the Federal Confidentiality of Alcohol and Drug Abuse Patient Records regulations: The Federal rules restrict any use of the information to criminally investigate or prosecute any alcohol or drug abuse patient.[facility] HospitalIn the event this information is protected by the Federal Confidentiality of Alcohol and Drug Abuse Patient Records regulations: The Federal rules restrict any use of the information to criminally investigate or prosecute any alcohol or drug abuse patient.[facility] HospitalIn the event this information is protected by the Federal Confidentiality of Alcohol and Drug Abuse Patient Records regulations: The Federal rules restrict any use of the information to criminally investigate or prosecute any alcohol or drug abuse patient.[facility] HospitalIn the event this information is protected by the Federal Confidentiality of Alcohol and Drug Abuse Patient Records regulations: The Federal rules restrict any use of the information to criminally investigate or prosecute any alcohol or drug abuse patient.[facility] HospitalIn the event this information is protected by the Federal Confidentiality of Alcohol and Drug Abuse Patient Records regulations: The Federal rules restrict any use of the information to criminally investigate or prosecute any alcohol or drug abuse patient.[facility] HospitalIn the event this information is protected by the Federal Confidentiality of Alcohol and Drug Abuse Patient Records regulations: The Federal rules restrict any use of the information to criminally investigate or prosecute any alcohol or drug abuse patient.[facility] HospitalIn the event this information is protected by the Federal Confidentiality of Alcohol and Drug Abuse Patient Records regulations: The Federal rules restrict any use of the information to criminally investigate or prosecute any alcohol or drug abuse patient.[facility] Reason for Visit (unrecogniz ed section and content) Reason Comments Radiology MRI Specialty Diagnoses / Procedures Referred By Genesis marcos Referred To Contact MR IMAGING Diagnoses Malignant neoplasm of prostate (HCC) Procedures MRI PROSTATE WO/W IVCON MRI [place] [address] [place], [place] [id number] Mr Imaging Referral ID Status Reason Start Date Expiration Date V isits Requested Visits Authorized [id number] Closed Auto-Generate d Referral 10/02/2021 11/06/2021 1 [...] W/O & W/CONTRAST MATERIAL Jevon Zambrano MD [address] [place] [address] Mr Imaging [id number] Referral ID Status Reason Start Date Expiration Date V isits Requested Visits Authorized [id number] Closed Auto-Generate d Referral 11/20/2023 06/20/2024 1 1 Reason Comments Pain Specialty Diagnoses / Procedures Referred By Contac t Referred To Contact Orthopaedic Surgery Diagnoses Acute pain of right shoulder Annette Block MD [facility] [address] [facility] [address] [place] [address] Phone: tel: fax: Jr. Yeimi Cardenas, [address] [facility] [address] [place] [address] Phone: tel: fax: Referral ID Status Reason Start Date Expiration Date V isits Requested Visits Authorized [id number] Closed Consult and Treat 04/06/2024 10/03/2024 1 1 Reason Comments Pain Reason Onset Date Comments dentist 05/11/2024 Reason Comments 6 Month Follow-up Medicare Annual Wellness Visit Subsequen t Reason Comments URI Patient is here toda y with complaints of URI that began 10 days ago. Reason Onset Date Comments needs rx for cough syrup 07/01/2024 Care Teams (unrecognized sec tion and content) Field Tech Relationship Specialty Start Date End Date Annette Block MD [address] [facility] [address] [place] [address] PCP - General Internal Medicine 02/21/18 Field Tech Relationship Specialty Start Date End Date Annette Block MD [address] [place] [address] PCP - General Internal Medicine 02/21/18 Field Tech Relationship Specialty Start Date End Date Annette Block MD [address] [place] [address] PCP - General Internal Medicine 02/21/18 Team Status: Inactive Member Role Status Yair Block MD Primary Care Provider Active Annette Callaway II, MD Attending Provider Active Team Status: Active Member Role Status Yair Block MD Primary Care Provider Active Team Status: Inactive Member Role Status Dates Annette Block MD Primary Care Provider Active Preston Tejada MD Attending Provider Active Field Tech Relationship Specialty Start Date End Date Annette Block MD [address] [place] [address] PCP - General Internal Medicine 02/21/18 Field Tech Relationship Specialty Start Date End Date Annette Block MD [address] [place] [address] PCP - General Internal Medicine 02/21/18 Field Tech Relationship Specialty Start Date End Date Annette Block MD [address] [place] [address] PCP - General Internal Medicine 02/21/18 Field Tech Relationship Specialty Start Date End Date Annette Block MD [address] [place] [address] PCP - General Internal Medicine 02/21/18 Field Tech Relationship Specialty Start Date End Date Annette Block MD [address] [place] [id number] PCP - General Internal Medicine 11/16/22 Mark Anthony Drake MD [address] [facility] [place] [address] Urology 01/15/23 Field Tech Relationship Specialty Start Date End Date Annette Block MD [address] [place] [address] PCP - General Internal Medicine 11/16/22 Mark Anthony Drake MD [address] [place] [address] Urology 01/15/23 Field Tech Relationship Specialty Start Date End Date Annette Block MD [address] [place] [address] PCP - General Internal Medicine 02/21/18 Field Tech Relationship Specialty Start Date End Date Annette Block MD [address] [place] [address] PCP - General Internal Medicine 02/21/18 Field Tech Relationship Specialty Start Date End Date Annette Block MD [address] [place] [address] PCP - General Internal Medicine 02/21/18 Field Tech Relationship Specialty Start Date End Date Annette Block MD [address] [place] [address] PCP - General Internal Medicine 02/21/18 Team Status: Inactive Member Role Status Dates Annette Block MD Primary Care Provider Active St art: March 04, 2024 End: March 04, 2024 Preston Tejada MD Attending Provider Active Star t: March 04, 2024 End: March 04, 2024 Field Tech Relationship Specialty Start Date End Date Annette Block MD [address] [place] [address] PCP - General Internal Medicine 11/16/22 Jevon Zambrano MD [address] [place] [address] Referring Physician Urology 01/28/24 Ron Hartley, OD [address] [place] [address] Referring Physician Optometry 02/13/24 Mark Anthony Drake MD [address] [place], [place] [id number] Urology 01/15/23 [facility] 02/13/24 Field Tech Relationship Specialty Start Date End Date Annette Block MD [address] [place] [address] PCP - General Internal Medicine 11/16/22 Jevon Zambrano MD [address] [place] [address] Referring Physician Urology 01/28/24 Ron Hartley, OD [address] [place] [address] Referring Physician Optometry 02/13/24 Mark Anthony Drake MD [address] [place] [address] Urology 01/15/23 [facility] 02/13/24 Field Tech Relationship Specialty Start Date End Date Annette Block MD [address] [place] [address] PCP - General Internal Medicine 11/16/22 Jevon Zambrano MD [address] [place] [address] Referring Physician Urology 01/28/24 Ron Hartley, OD [facility] [place] [address] Referring Physician Optometry 02/13/24 Mark Anthony Drake MD [address] [place], [place] [phone] Urology 01/15/23 [facility] 02/13/24 Field Tech Relationship Specialty Start Date End Date Annette Block MD [address] [place] [address] PCP - General Internal Medicine 11/16/22 Jevon Zambrano MD [address] [place] [address] Referring Physician Urology 01/28/24 Ron Hartley, OD [address] [place] [address] Referring Physician Optometry 02/13/24 Mark Anthony Drake MD [address] [place] [address] Urology 01/15/23 [facility] 02/13/24 Field Tech Relationship Specialty Start Date End Date Annette Block MD [address] [place] [address] PCP - General Internal Medicine 11/16/22 Jevon Zambrano MD [address] [place] [address] Referring Physician Urology 01/28/24 Ron Hartley OD [address] [place] [address] Referring Physician Optometry 02/13/24 Mark Anthony Drake MD [address] [place] [address] Urology 01/15/23 [facility] 02/13/24 Field Tech Relationship Specialty Start Date End Date Annette Block MD [address] [place] [address] PCP - General Internal Medicine 11/16/22 Jevon Zambrano MD [address] [place] [address] Referring Physician Urology 01/28/24 Mark Anthony Drake MD [address] [place] [address] Urology 01/15/23 Field Tech Relationship Specialty Start Date End Date Annette Block MD [address] [place] [address] PCP - General Internal Medicine 11/16/22 Jevon Zambrano MD [address] [place] [address] Referring Physician Urology 01/28/24 Mark Anthony Drake MD [address] [place] [address] Urology 01/15/23 [facility] 02/13/24 Field Tech Relationship Specialty Start Date End Date Annette Block MD [address] [place] [address] PCP - General Internal Medicine 11/16/22 Jevon Zambrano MD [address] [place] [address] Referring Physician Urology 01/28/24 Ron Hartley, OD [facility] [place] [address] Referring Physician Optometry 02/13/24 Mark Anthony Drake MD [address] [place] [address] Urology 01/15/23 [facility] 02/13/24 Field Tech Relationship Specialty Start Date End Date Annette Block MD [address] [facility] [place] [address] PCP - General Internal Medicine 11/16/22 Jevon Zambrano MD [address] [place] [address] Referring Physician Urology 01/28/24 Ron Hartley, OD [facility] [place] [address] Referring Physician Optometry 02/13/24 Mark Anthony Drake MD [address] [place], [place] [id number] Urology 01/15/23 [facility] 02/13/24 Goals (unrecognized section and content) Goals [...] BE BASED ON THE PRIMARY CLINICAL RECORDS. [facility] [employer] [facility]. provides no warranty or guarantee of the accuracy or completeness of information in this document.
[2024-08-14 07:52] LABS: Bacteria Urine TRACE #/HPF (NONE SEEN); Cast Seen? NONE SEEN #/LPF (NONE SEEN); Crystals Seen? None Seen #/HPF (None Seen); Mucus Urine NONE SEEN (NONE SEEN); RBC Urine NONE SEEN #/HPF (0-2); Squamous Epithelial Cell Urine RARE #/LPF (NONE/RARE); WBC Urine 0-2 #/HPF (NONE SEEN)
[2024-08-14 08:09] LABS: Anion Gap 10.4; BUN Creatinine Ratio 25.5; Calcium 9.1 mg/dL (8.5-10.1); Carbon Dioxide 30.2 mmol/L (21.0-32.0); Chloride 104 mmol/L (98-107); Estimated GFR (African America >60 (>=60 mL/min/1.73m^2); Estimated GFR (Non-African Ame >60 (>=60 mL/min/1.73m^2); Glucose 119 mg/dL (74-106); Potassium 4.6 mmol/L (3.5-5.1); Sodium 140 mmol/L (136-145)
[2024-08-14 08:13] LABS: Microalbumin Urine Random <1.3 mg/dL (<=30.0)
[2024-08-14 08:21] LABS: Estimated Average Glucose 123 mg/dL; Glycohemoglobin A1C 5.9 % (4.5-6.2)
== END 2024-08-14 07:25 | disposition home or self-care (01) ==
LOC: LAB 07:24
PROVIDERS: PCP Internal Medicine; Visit Provider Physician Assistant
DX: R73.03 Prediabetes (principal); I10 Essential (primary) hypertension
CPT/HCPCS: 36415; 80048; 81001; 82043; 82570; 83036

== ENCOUNTER 2025-02-06 07:38 | Outpatient (OUT) | payer MEDICARE, OTHER, SELFPAY ==
--- OUTSIDE RECORDS SUMMARY | 2025-02-06 07:41 | XMS_ITS | CCD ---
Author Organization [facility] Care Team Providers Care Management Services Technician Name Role Phone ANNETTE BLOCK Unavailable Unavailable ANNETTE BLOCK Unavailable Unavailable Horn, Eirn Unavailable Unavailable Horn, Erin Unavailable Unavailable GEORGE DOS SANTOS Unavailable Unavailable ANNETTE BLOCK Primary Care Unavailable ANNETTE BLOCK Referring Unavailable BERRY FISHER Admitting Unavailable BERRY FISHER Attending Unavailable Annette Block MD Primary Care Provider [phone] Annette Callaway II Unavailable Annette Block MD Primary Care Provider MD Annette Block Primary Care Provider MD Annette Callaway II Attending Provider MD Preston Tejada Attending Provider [phone] Preston Tejada Unavailable Annette Block MD Primary [...] VANESSA Consulting Unavailable JACE, RON Admitting Unavailable RON MCCORMICK Attending Unavailable PABLO, DR BRYANT Primary Care Unavailable [place], DR KEN Dunlap Consulting Unavailable JACE, RON [...] BLOCK, DR BRYANT Primary Care Unavailable REQUEST, DR CASTILLO LISTED Consulting Unavaila Annette Alonzo MD Primary Care Provider Annette Block MD Primary Care Provider [phone] MD Annette Block Primary Care Provider MD Preston Tejada Attending Provider Preston Tejada Attending Unavailable Preston Tejada Admitting Unavailable Annette Block Primary Care Unavailable Jevon Last MD Unavailable Ron Hartley OD Unavailable BERRY FISHER Attending Unavailable BERRY FISHER Attending Unavailable Candy KENNEL HELPER, Yudy R Unavailable [phone] Jevon Last MD Unavailable Unavailable BOB JIM Referring Unavailable ANNETTE BLOCK Primary Care Unavailable BOB JIM Attending Unavailable ANNETTE BLOCK Primary Care Unavailable JR. CARDENAS GEORGE C Attending Unavaila briana CARDENAS JR., GEORGE C Referring Unavaila ANNETTE Alonzo Attending Unavailable MARCO ANTONIO AMANDA Attending Unavailable MARY COFFEY Attending Unavailable BOB JIM Referring Unavailable MARY COFFEY Attending Unavailable EVETTE DUFFY Attending Unavailable ANNETTE BLOCK Referring Unavailable EVETTE DUFFY Referring Unavailable JR. CARDENAS GEORGE C Attending Unavaila ANNETTE Alonzo Referring Unavailable JR. CARDENAS GEORGE C Referring Unavaila briana CARDENAS JR., GEORGE C Referring Unavaila briana CARDENAS JR., GEORGE C Attending Unavaila ANNETTE Alonzo Referring Unavailable DOMINGO SILVA Attending Unavailable DOMINGO [...] Take 1 tablet by mouth once daily. 07/23/2019 Active Start: 04-14-2018 take 1 tablet [...] bedtime. Active azithromycin 250 mg oral tablet (10 sources) Macrolide Antimicrobial Start: 11-21-19 25 azithromycin (Zithromax) 250 MG tablet Indications: Acute bronchitis, unspecified organism Z-Pack. Take 2 tablets on day 1, and one tablet per day on days 2-5. 6 tablet 11/20/2024 Active Start: 07-01-2024 End: 07-06-2024 azithromycin (Zithromax) 250 MG tablet Indications: Bronchitis Take 2 tabs (500 mg) by mouth today, than 1 tab (250 mg) daily for 4 days. 6 tablet 07/01/2024 07/06/2024 Active calcium carbonate 1500 mg oral tablet (20 sources) Start: 03-26-2018 take 1 tablet by mouth once daily calcium carbonate (CALTRATE) 600 mg calcium (1,500 mg) tab Take 1 tablet by mouth once daily. 03/26/2018 Active Caltrate 600 Act prisca Comment on above: Take 1 tablet by radha once daily. cetirizine hydrochloride 10 mg oral tablet (20 sources) Histamine-1 Receptor Antagonist Start: 7 take 1 tablet by mouth once daily cetirizine (ZYRTEC) 10 mg tablet Take 10 mg by mouth once daily. 04/15/2017 Active Zyrtec 1 tab Ora l Active Comment on above: Take 10 mg by mouth once daily. cholecalciferol 0.05 mg oral tablet (20 sources) Vitamin D Start: 03-24-20 20 take 1 tablet by mouth once daily Cholecalciferol (Vitamin D3) (Vitamin D3) 50 mcg (2,000 unit) Tablet Active 2000 UNIT PO Daily March 24, 2020 12:00am take 1 capsule by mo ut once in the morning Cholecalciferol (Vitamin D) [...] mg/ml / guaiFENesin 20 mg/ml oral solution (15 sources) Opioid Agonist Start: 08-21-2024 guaiFENesin-codeine (Robitussin-AC) 100-10 MG/5ML syrup Indications: Acute cough Take 5-10 mL by mouth 4 (four) times a day as needed for cough 200 mL 08/21/2024 Active Start: 07-01-2024 End: 08-18-2024 guaiFENesin-codeine (Robitus sin-AC) 100-10 MG/5ML syrup Indications: Acute cough Take 5-10 mL by mouth 4 (four) times a day as needed for cough 200 mL 07/01/2024 08/18/2024 Discontinued diclofenac sodium 75 mg delayed release oral tablet (20 sources) Nonsteroidal Anti-inflammatory Drug Start: 12-14-2024 take 1 tablet by mouth twice daily at mealtime diclofenac (Voltaren) 75 MG EC tablet Indications: Primary generalized (osteo)arthritis TAKE 1 TABLET BY MOUTH WITH FOOD OR MILK TWICE DAILY 180 tablet 3 12/14/2024 Active Start: 04-16-2019 End: 04-09-2020 take 1 [...] once daily in the morning Iron Ps Gckahad-U58-Wpjjz Acid (Poly-Iron 150 Forte) 150-25-1 mg-mcg-mg capsule [...] Start: 021 metoprolol succinate 25 mg CSpX 11/18/2020 Active take 1 tablet by radha th [...] Multivitamin preparation (3 sources) Multivitamin Act prisca Mv,Ca,Mwi-Ichy-St-Lyc opene (Centrum Men) 8 mg iron- 200 mcg-600 mcg Tablet (3 sources) Start: 03-26-20 18 Mv,Ca,Nqh-Ffqt-Hk-Lycope ne (Centrum Men) 8 mg iron- 200 mcg-600 mcg Tablet Active 1 TAB PO Daily March 26, 2018 12:00am Nut.Tx.Gluc.Intol,Lac -Free,Soy (Glucerna) Liquid (3 sources) Start: 10-01-20 20 Nut.Tx.Gluc.Intol,Lac-Fr ee,Soy (Glucerna) Liquid Active 1 EACH PO Daily March 24, 2020 12:00am omeprazole 20 mg delayed release oral capsule (20 sources) Proton Pump Inhibitor Start: 04-01-20 take 1 capsule by mouth once daily omeprazole (PriLOSEC) [address] capsule Indications: Gastroesophageal reflux disease without esophagitis TAKE 1 CAPSULE BY MOUTH EVERY DAY 90 capsule 3 06/01/2024 Active take 2 capsules by m outh every twenty-four hours Omeprazole 20 MG 2 capsules Orally Once a day Active Comment on above: Take 20 mg by mouth once daily. OZEMPIC 0.25 mg or 0.5 mg (2 mg/3 mL) pen (6 sources) OZEMPIC 0.25 mg or 0.5 mg (2 mg/3 mL) pen Inject 0.25 mg subcutaneously one time a week. Active OZEMPIC 0.25 mg or 0.5 mg (2 mg/3 mL) pen Inject 0.25 mg subcutaneously one time a week. 0 Active polyethylene glycol 3350 21389 mg powder for oral solution (20 sources) Osmotic Laxative take 17 g by mouth every twenty-four hours as needed polyethylene glycol, PEG, 3350 (MiraLax) 17 GM/SCOOP powder Take 17 g by mouth Daily as needed. Active MiraLax Active Comment on above: Take by mouth once d aily. semaglutide (Ozempic, 1 MG/DOSE,) 4 MG/3ML solution pen-injector (8 sources) Start: 08-20-2024 semaglutide (Ozempic, 1 MG/DOSE,) 4 MG/3ML solution pen-injector Indications: Controlled type 2 diabetes mellitus with complication, with long-term current use of insulin ([facility]) , BMI 32.0-32.9,adult Inject 1 mg under the skin 1 (one) time per week 3 mL 11 08/20/2024 Active Start: 08-20-2024 semaglutide (O zempic, 1 MG/DOSE,) 4 MG/3ML solution pen- injector Indications: Controlled type 2 diabetes mellitus with complication, with long-term current use of insulin ([facility]) , BMI 32.0-32.9,adult Inject 1 mg under the skin 1 (one) time per week 3 mL 08/20/2024 Active sennosides, skilled nursing 8.6 mg oral tablet (3 sources) Start: 01-10-2018 take 1 tablet by mouth twice daily Sennosides (Senna) 8.6 mg Tablet Active 8.6 MG PO Twice daily January 10, 2018 12:00am sildenafil 100 mg oral tablet (20 sources) Phosphodiesterase 5 Inhibitor Start: 10-26-2024 take 1 tablet by mouth once daily as needed sildenafil (Viagra) 100 MG tablet Indications: Erectile dysfunction, unspecified erectile dysfunction type TAKE 1 TABLET BY MOUTH EVERY DAY NEEDED FOR ERECTILE DYSFUNCTION FOR UP TO 30 DOSES. 30 tablet 10/26/2024 Active Start: 01-21-2019 End: 02-13-2024 take 1 tablet by mouth once daily sildenafil (VIAGRA) 100 mg tablet Take 100 mg by mouth once daily. 2 01/21/2019 Active Comment on above: Take 100 mg by mouth once daily. simvastatin 20 mg oral tablet (13 sources) HMG-CoA Reductase Inhibitor Start: 04-15-20 End: 10-27-19 take 20 mg by mouth once daily at bedtime Simvastatin Active 20 MG PO Daily at bedtime April 15, 2017 12:00am Comment on above: Take 20 mg by mouth once daily. traMADol hydrochloride 50 mg oral tablet (4 sources) Opioid Agonist Start: 07-31-19 24 End: 08-07-19 24 take 1 tablet by mouth every eight [...] Take 1 tablet by mouth as needed. 07/23/2019 Active Start: 03-26-2018 take 1 tablet [...] PROCEDURE 4 capsule 3 11/22/2022 02/12/2024 Discontinued benzonatate 100 mg oral capsule (8 sources) Non-narcotic Antitussive Start: 07-01-2024 End: 08-18-2024 take 1 capsule by mouth three times daily as needed for cough benzonatate (Tessalon) 100 MG capsule Indications: Acute cough Take 1 capsule (100 mg) by mouth 3 (three) times a day as needed for cough Do not crush or chew. 42 capsule 07/01/2024 08/18/2024 Discontinued cephalexin 500 mg oral capsule (4 [...] do not crush/dissolve/chew/cut/break multivit-mins /iron/folic/l ycop (MV,CA,MIN-IR RC-AM-HCWCZDG E ORAL) (7 sources) Start: 03-26-2018 End: 10-26-2022 take 1 tablet by mouth once daily multivit-mins/iron/folic/lycop (MV,CA,UWZ-BMXZ-LW-LYCOPENE ORAL) Take 1 tablet by mouth once daily. 0 03/26/2018 10/26/2022 Discontinued Start: 03-26-2018 take 1 tablet by radha th once daily multivit-mins/iron/folic/lycop (MV,CA,SSY-BSCK-BA-LYCOPENE ORAL) Take 1 tablet by mouth once [...] or 0.5 MG/DOSE,) 2 MG/3ML solution pen-injector (20 sources) Start: 4 End: 5 Semaglutide,0.25 or 0.5MG/DOS, (Ozempic, 0.25 or 0.5 MG/DOSE,) 2 MG/3ML solution pen-injector Indications: Type 2 Diabetes Mellitus , one pre filled pen Inject 0.5 mg under the skin 1 (one) time per week 9 mL 3 05/15/2024 08/18/2024 Discontinued (Other) Start: 05-15-2024 Semaglutide,0. 25 or 0.5MG/DOS, (Ozempic, 0.25 or [...] Classification Problem Date Documented Date Episodic/Chronic Acute bronchitis (2 sources) Acute bronchitis; Translations: [Acute bronchitis, unspecified] 11-20-2024 Episodic Acute posthemorrhagic anemia (3 sources) Anemia following [...] Coronary arteriosclerosis; Translations: [Atherosclerotic heart disease of [place] coronary artery without angina pectoris] Onset: 11-19-2022 [...] status Onset: 03-08-2022 Resolved: 03-08-2022 Episodic Other connective tissue disease (2 sources) Pain in right foot; Translations: [PAIN IN RIGHT FOOT] Onset: 11-08-2021 Episodic Other connective tissue disease (3 sources) Pain in right foot; Translations: [Pain in right foot] 01-19-2025 Episodic Other connective tissue disease (2 sources) Peroneal tendinitis; Translations: [Peroneal tendinitis, right leg] 01-20-2025 Episodic Other connective tissue disease (1 source) Peroneal tendinitis, right leg; Translations: [Peroneal tendinitis of lower leg, right] Onset: 01-20-2025 Episodic Other connective tissue disease (2 sources) Peroneal tendinitis of right lower limb; Translations: [Peroneal tendinitis, right leg] 02-02-2025 Episodic Other fractures (1 source) Stress fracture, unspecified site, subsequent encounter for fracture with routine healing; Translations: [M84.30XD - Stress fracture, unspecified site, subsequent encounter for fracture with routine healing] Onset: 06-11-2018 Episodic Other lower respiratory disease (4 sources) Cough; Translations: [Acute cough] 07-01-2024 Episodic [...] Episodic Other nutritional; endocrine; and metabolic disorders (16 sources) Obese class II; Translations: [Obesity, unspecified] Onset: 05-22-2019 05-22-2019 Chronic Other nutritional; endocrine; and metabolic disorders (20 sources) Morbid obesity; Translations: [Morbid (severe) obesity due to excess calories] Onset: 11-19-2022 11-19-2022 Chronic Other nutritional; endocrine; and metabolic disorders (1 source) Body mass index 30+ - obesity; Translations: [Body mass index (BMI) 32.0-32.9, adult] 07-31-2023 Chronic Other nutritional; endocrine; and metabolic disorders (2 sources) Obese class I; Translations: [Obesity (BMI 30.0-34.9)] 08-22-2024 Chronic Other screening for suspected conditions (not mental disorders or infectious disease) (14 sources) Patient encounter status; Translations: [Encounter for [...] 11-19-2022 Episodic Other aftercare (4 sources) Other fdc (current) drug therapy; Translations: [OTH PRISON 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 THERAPY] Onset: 05-23-2022 Episodic Other bone disease and musculoskeletal deformities (20 sources) Osteopenia; Translations: [Other specified disorders of bone density and structure, unspecified site] Onset: 11-19-2022 07-24-2023 Episodic Other connective tissue disease (4 sources) Pain in left foot; Translations: [PAIN IN LEFT FOOT] Onset: 11-02-2021 Episodic Other lower respiratory disease (1 source) Shortness of breath; Translations: [Shortness of breath] Onset: 02-06-2017 Episodic Other non-traumatic joint disorders (1 source) Pain in left knee Onset: 02-15-2022 Resolved: 02-15-2022 Episodic Phlebitis; thrombophlebitis and thromboembolism (20 sources) H/O: Deep vein thrombosis; Translations: [Personal history of other venous thrombosis and embolism] Onset: 10-11-2021 08-20-2019 Episodic Retinal detachments; defects; vascular occlusion; and retinopathy (20 sources) Retinal disorder; 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 Additional history provided by the performing technologist (if any): --> RIGHT FOOT PAIN TECHNIQUE: XR FOOT 3V AP/LAT/OBL RT COMPARISON: 07/28/2019 RESULT: Plate and screw fixation along the long axis of the navicular bone dorsally and across the second tarsometatarsal joint dorsally. Intact hardware. No significant radiographic change. Osteophytes between the proximal third and fourth metatarsal bones. Calcaneal spurs. No other significant abnormality. IMPRESSION: NO SIGNIFICANT CHANGE. NO ACUTE OSSEOUS ABNORMALITY Statement Distribution Clerk: [facility] Transcribe Date/Time: Jan 21 2025 3:10P Dictated by : ANGELINE RAYO MD This examination was interpreted and the report reviewed and electronically signed by: ANGELINE RAYO MD on Jan 21 2025 3:11PM EST [id number]^SI^ ACN [facility], Radiologist, MD - 01/21/2025 * * *Final Report* * * DATE OF EXAM: Jan 20 2025 2:09PM AFR 5337 - XR FOOT 3V AP/LAT/OBL RT / PROCEDURE REASON: Pain in right foot * * * * Physician Interpretation * * * * HISTORY (as given from clinical provider): Pain in right foot . Additional history provided by the performing technologist (if any): --> RIGHT FOOT PAIN TECHNIQUE: XR FOOT 3V AP/LAT/OBL RT COMPARISON: 07/28/2019 RESULT: Plate and screw fixation along the long axis of the navicular bone dorsally and across the second tarsometatarsal joint dorsally. Intact hardware. No significant radiographic change. Osteophytes between the proximal third and fourth metatarsal bones. Calcaneal spurs. No other significant abnormality. IMPRESSION: NO SIGNIFICANT CHANGE. NO ACUTE OSSEOUS ABNORMALITY Statement Distribution Clerk: LIZETTE Transcribe Date/Time: Jan 21 2025 3:10P Dictated by : ANGELINE RAYO MD This examination was interpreted and the report reviewed and electronically signed by: ANGELINE RAYO MD on Jan 21 2025 3:11PM EST [id number]^SI^ ACN [facility] [employer] XR FOOT 3V AP/LAT/OBL RTOrde red By: Radiologist Radiology on 01-21-2025 [facility] [employer] Work Phone: CNOVon 01-20-2025 [facility] Office Visit ([facility] ) MARCO ANTONIO BENITEZ ([id number]) 1955 M Date Time Provider Department 01/20/25 2:30 PM BOB JIM During your visit today, we recorded the following information about you: Bob Jim MD 01/20/2025 3:41 PM Signed [facility] Patient [facility] Consultation requested by No referring provider defined for this encounter. for an opinion regarding Mr. Marco Antonio Benitez, and my final recommendations will be communicated back to the requesting physician by way of shared medical record or letter via US mail. CHIEF COMPLAINT: Right midfoot arthritis HISTORY OF PRESENT ILLNESS: Marco Antonio Benitez is a 69 year old male who presents today with x1yr right lateral foot pain. 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 He has sharp pain with activity up to 10/10. He takes PO Voltaren prn, which moderately controls the pain. 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 Location of Pain: right foot The pain is present 8/10 The pain is a 8/10 at its best, and 10/10 at its worst. They denies nocturnal pain. The pain is exacerbated by walking. The pain is improved with rest and activity modification. They report Pain. Treatments Tried: Ice: no NSAIDs: yes Brace: yes Injections: none Physical Therapy: none Surgeries: yes Occupation: retired Activities: walking Smoking: none Personal or Family Hx of DVT/PE: yes Diabetic: none Last Hgba1c: Hemoglobin A1C (%) Date Value 01/24/2000 5.2 PHYSICAL EXAMINATION: General: no acute distress HENT: head normocephalic, mouth mucous membranes are moist. Eyes: extraocular movements intact, pupils are equal, round, and reactive to light. Cardiovascular: normal pulses Pulmonary: normal work of breathing on room air Skin: capillary refill takes less than 2 seconds Neurological: AOx4, follows commands Musculoskeletal: Right lower extremity Inspection: Incisions CDI from remote surgery, forefoot adductus alignment Palpation: TTP over midfoot, especially over prominent base of 5th MT ROM: Maintained Neuro: sensation intact in the superficial peroneal, deep peroneal, tibial, sural, and saphenous nerve distributions Vascular: DP pulse present, 2+ Pain with heel raise, arch maintained bilaterally Compartments: compartments of leg are soft and compressible IMAGING: XR of bilateral feet with posttraumatic mid/forefoot changes, no obvious hardware complications, malunion of 4th and 5th MT bases. ASSESSMENT I reviewed the imaging studies, physical exam findings, and clinical course with the patient today. Right midfoot arthritis PLAN: - Recommend activity modification in soft soled shoes - Voltaren gel prn and PO tylenol/NSAIDs - PT referral provided Follow up: 6-8 weeks Imaging needed: Yes, bl feet Thank you for the opportunity to participate in this patient's care. Bob Jim MD Medical Decision Making Allergies As of Date: 01/20/2025 (No Known Allergies) Date Reviewed: 01/20/2025 Reviewed by: Omaira Granger MA - Fully Assessed Reason for Visit: New [[id number]] Primary Visit Diagnosis:Arthritis of right midfoot [M19.071] Other Visit Diagnosis:Peroneal tendinitis of lower leg, right [M76.71] Order(s):CONSULT TO PHYSICAL THERAPY [8854] Order #: [id number]: 1 FUTURE Prescriptions as of 01/20/2025 - atorvastatin (LIPITOR) 80 mg tablet Take [...] twice daily. Problem List As Of Date 01/20/2025 Noted Resolved Obesity, Class II, BMI 35-39.9 [E66.812] 05/22/2019 Hyperlipidemia [E78.5] History of DVT (deep vein thrombosis) [Z86.718] Factor V Leiden (HCC) [D68.51] Prostate cancer (HCC) [C61] 11/23/2021 Level of Service: OFFICE/OUTPATIENT ESTABLISHED LOW MDM 20 MIN [94643] Letter Text Encounter Status:Closed by BOB JIM on 01/20/25 [facility] XR FOOT 3V AP/LAT/OBL RTon 0 01-20-2025 XR FOOT 3V AP/LAT/OBL RT * * *Final Report* * * DATE OF EXAM: Jan 20 2025 2:09PM AFR 5337 - XR FOOT 3V AP/LAT/OBL RT / PROCEDURE REASON: Pain in right foot * * * * Physician Interpretation * * * * HISTORY (as given from clinical provider): Pain in right foot . Additional history provided by the performing technologist (if any): --> RIGHT FOOT PAIN TECHNIQUE: XR FOOT 3V AP/LAT/OBL RT COMPARISON: 07/28/2019 RESULT: Plate and screw fixation along the long axis of the navicular bone dorsally and across the second tarsometatarsal joint dorsally. Intact hardware. No significant radiographic change. Osteophytes between the proximal third and fourth metatarsal bones. Calcaneal spurs. No other significant abnormality. IMPRESSION: NO SIGNIFICANT CHANGE. NO ACUTE OSSEOUS ABNORMALITY Statement Distribution Clerk: [facility] Transcribe Date/Time: Jan 21 2025 3:10P Dictated by : ANGELINE RAYO MD This examination was interpreted and the report reviewed and electronically signed by: ANGELINE RAYO MD on Jan 21 2025 3:11PM EST [id number] Normal [facility] Radiology Study observation (narrative) [facility] URINALYSIS, WITH MICROS COPICon 08-14-2024 BACTERIA URINE TRACE Abnormal NONE SEEN #/HPF [facility] BILIRUBIN URINE Negative NEGATIVE [facility] BLOOD URINE Negative NEGATIVE [facility] CAST SEEN? NONE SEEN NONE SEEN #/LPF [facility] Clarity (U) CLEAR CLEAR [facility] Color (U) LT. YELLOW YELLOW [facility] CRYSTALS SEEN? None Seen None Seen #/HPF [facility] GLUCOSE URINE UA Negative NEGATIVE mg/dL [facility] Interpretation and review of laboratory results Abnormal [facility] Ketones Ql (U) Negative NEGATIVE mg/dL [facility] Leukocyte esterase Test strip Ql (U) Negative NEGATIVE [facility] MUCUS URINE NONE SEEN NONE SEEN [facility] NITRITE URINE Negative NEGATIVE [facility] pH (U) 6.5 [pH] 5.0 - 9.0 [facility] PROTEIN URINE Negative NEG/TRACE mg/dL [facility] SPECIFIC GRAVITY URINE 1.015 1.005 - 1.025 [facility] SQUAMOUS EPITHELIAL CELL URINE RARE NONE/RARE #/LPF [facility] TBH RBC NONE SEEN [facility]H WBC 0-2 Abnormal NONE SEEN #/HPF [facility] UROBILINOGEN URINE 0.2 EU/dL 0.2 - 1.0 EU/dL [facility] XR Knee - right 1 or 2 [...] Stable RT total knee replacement. 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 XR CHEST 2 VIEWSon 5 XR CHEST 2 VIEWS XR CHEST 2 [...] Not Available Office Visiton 05-25-2024 Follow-up visit [id number] Roma Benitez 1955 M Date Provider Department Center 05/25/2024 [facility] B[facility]Y C[facility] Family History Problem Relation Age of Onset Sick sinus syndrome Father Other Other Family Status - Relation Status Age at Father Other Level of Service:03684 AL OFFICE/OUTPATIENT ESTABLISHED LOW MDM 20 MIN Normal [facility] MHPT PSA, DIAGNOSTICon 05-23 PROSTATE SPECIFIC ANTIGEN DX 1.1 ng/mL NINF - 4.00 ng/mL [facility] MR SHOULDER RIGHT WO IV CONT RASTon 04-16-2024 MR SHOULDER RIGHT WO IV CONTRAST [...] right shoulder moderate acromioclavicular degenerative joint disease. [facility] Radiology Study observation (narrative) [facility] XR lumbar spine AP/LAT/FLX/E XTon 03-04-2024 XR lumbar spine AP/LAT/FLX/EXT [facility] [place] [address] XRay Report Signed Patient: Marco Antonio Benitez MR#: [id number] 69 : 1955 Acct:[id number] Age/Sex: 68 / M ADM Date: 03/04/24 [...] Markus Sahu M.D.03/04/2024 9:00 PM Dictation Location: [place] [address] Transcribed By: [facility] 03/04/242099 Dictated By: Markus Sahu DO 03/04/242056 Signed By: 03/04/242099 Normal [facility] DEXA BONE DENSITYon 02-13-20 DEXA BONE DENSITY FINDINGS: Dual Femur bone density obtained with a [employer] whole body system: Region BMD Young-Adult Age-Matched [...] Left Forearm bone density obtained with a [employer] whole body system: Region BMD Young-Adult Age-Matched [...] WITH AUTO DIFFon BASOPHILS ABSOLUTE AUTO 0.0 [facility] Basophils/100 WBC (Bld) 0.6 % 0.2 - 2.0 % [facility] Eosinophils/100 WBC (Bld) 9.2 % High 0.9 - 7.0 % [facility] Erythrocyte distribution width (RBC) [Ratio] 12.6 % 11.0 - 15.0 % [facility] Hematocrit (Bld) [Volume fraction] 40.3 % Low 42.0 - 54.0 % [facility] Hemoglobin (Bld) [Mass/Vol] 13.4 g/dL Low 14.0 - 18.0 g/dL [facility] IMMATURE GRANULOCYTES ABS AUTO 0.02 [facility] Immature granulocytes/100 WBC (Bld) 0.3 % 0.0 - 0.5 % [facility] Interpretation and review of laboratory results Abnormal [facility] LYMPHOCYTES ABSOLUTE AUTO 1.3 [facility] Lymphocytes/100 WBC (Bld) 20.5 % 20.5 - 60.0 % [facility] MCH (RBC) [Entitic mass] 31.7 pg 25.9 - 34.[address] [facility] MCHC (RBC) [Mass/Vol] 33.3 g/dL 29.9 - 35.2 g/dL [facility] MCV (RBC) [Entitic vol] 95.3 fL High 80.0 - 94.[address] [facility] MONOCYTES ABSOLUTE AUTO 0.[address] [facility] Monocytes/100 WBC (Bld) 14.3 % High 1.7 - 12.0 % [facility] NEUTROPHILS ABSOLUTE AUTO 3.4 [facility] Neutrophils/100 WBC (Bld) 55.1 % 43.0 - 75.0 % [facility] Platelet mean volume (Bld) [Entitic vol] 8.4 fL Low 9.5 - 13.[address] [facility] TBH EO # 0.6 [facility] TBH PLT 228 [facility] TB RBC 4.[address] [facility] TB WBC 6.2 [facility] [address]INISYNC [facility] MR Prostate WO and W carmen marcos Citlali 11-22-2023 * * *Final Report* * [...] volume were obtained using a semi-automated software (CloudRunner I/O). THREE-DIMENSIONAL IMAGIND imaging including complex volumetric analysis of the prostate was created on a dedicated stand-alone workstation (ProofPilot)by the interpreting physician, with images reviewed and [...] Other Findings: None. DIVISION OF RADIOLOGY [facility] * * *Final Report* * * DATE OF EXAM: Nov 22 2023 12:16PM ON LICENSE OF [facility] 0751 - MRI PROSTATE WO/W IVCON / [...] volume were obtained using a semi-automated software (CloudRunner I/O). THREE-DIMENSIONAL IMAGIND imaging including complex volumetric analysis of the prostate was created on a dedicated stand-alone workstation (ProofPilot)by the interpreting physician, with images reviewed and [...] of suspicion for clinically significant prostate cancer ([place] score 3 + 4 or higher). PI-RADS v2.1 Assessment Categories: PI-RADS 1: Clinically significant cancer is highly unlikely PI-RADS 2: Clinically significant cancer is unlikely PI-RADS 3: Clinically significant cancer is equivocal PI-RADS 4: Clinically significant cancer is likely PI-RADS 5: Clinically significant cancer is highly likely (V.) Statement Distribution Clerk: LIZETTE Transcribe Date/Time: Nov 22 2023 1:34P Dictated by : ALEXIA MOY MD This examination was interpreted and the report reviewed and electronically signed by: LORENZO HEBERT MD on Nov 22 2023 3:20PM [facility] MR Unspecified body region 3 D post processingon 11-22-2023 * * *Final Report* * * DATE OF EXAM: Nov 22 2023 12:16PM ON LICENSE OF [facility] 0280 - MRI 3D POST PROCESSING / [...] volume were obtained using a semi-automated software (CloudRunner I/O). THREE-DIMENSIONAL IMAGIND imaging including complex volumetric analysis of the prostate was created on a dedicated stand-alone workstation (ProofPilot)by the interpreting physician, with images reviewed and [...] Other Findings: None. DIVISION OF RADIOLOGY [facility], [facility] - 11/22/2023 * * *Final Report* * * DATE OF EXAM: Nov 22 2023 12:16PM ON LICENSE OF [facility] 0280 - MRI 3D POST PROCESSING / [...] volume were obtained using a semi-automated software (CloudRunner I/O). THREE-DIMENSIONAL IMAGIND imaging including complex volumetric analysis of the prostate was created on a dedicated stand-alone workstation (ProofPilot)by the interpreting physician, with images reviewed and [...] of suspicion for clinically significant prostate cancer ([place] score 3 + 4 or higher). PI-RADS v2.1 Assessment Categories: PI-RADS 1: Clinically significant cancer is highly unlikely PI-RADS 2: Clinically significant cancer is unlikely PI-RADS 3: Clinically significant cancer is equivocal PI-RADS 4: Clinically significant cancer is likely PI-RADS 5: Clinically significant cancer is highly likely (V.) Statement Distribution Clerk: LIZETTE Transcribe Date/Time: Nov 22 2023 1:34P Dictated by : ALEXIA MOY MD This examination was interpreted and the report reviewed and electronically signed by: LORENZO HEBERT MD on Nov 22 2023 3:20PM [facility] No Panel Informationon 11-21 IMPRESSION: 1.0 cm left anterior transition PI-RADS 3 lesion, similar to 10/27/2021. No new lesion suspicious for clinically significant prostate cancer. No lymphadenopathy or suspicious osseous lesions. Number of targets created for MR/US fusion biopsy: Peripheral zone: 0 Transition zone: 1 If present, targets were numbered in order of level of suspicion for clinically significant prostate cancer ([place] score 3 + 4 or higher). PI-RADS v2.1 Assessment Categories: PI-RADS 1: Clinically significant cancer is highly unlikely PI-RADS 2: Clinically significant cancer is unlikely PI-RADS 3: Clinically significant cancer is equivocal PI-RADS 4: Clinically significant cancer is likely PI-RADS 5: Clinically significant cancer is highly likely (V.) Statement Distribution Clerk: Truly Accomplished Transcribe Date/Time: Nov 22 2023 1:34P Dictated by : ALEXIA MOY MD This examination was interpreted and the report reviewed and electronically signed by: LORENZO HEBERT MD on Nov 22 2023 3:20PM [facility] DIVISION OF RADIOLOGY Radiology Study observation (narrative) [facility] No Panel InformationOrdered By: [facility] Provider on 11-22-2023 [facility] URINALYSIS, REFLEX MICROSCOP ICon 11-22-2023 Bilirubin Ql (U) Negative Negative [facility] Clarity (Unsp spec) Clear Clear [facility] Color (U) Light Yellow Yellow [facility] Glucose Test strip (U) [Mass/Vol] Negative Trace, Negative [facility] Hemoglobin Ql (U) Negative Negative, Trace [facility] Interpretation and review of laboratory results Abnormal [facility] Ketones Ql (U) Negative Negative, Trace [facility] Leukocyte esterase Test strip Ql (U) Negative Negative, 25 Rae/uL [facility] Nitrite Ql (U) Negative Negative [facility] pH (U) 5.5 [pH] 5.0 - 8.0 [facility] Protein (U) [Mass/Vol] Negative Trace, Negative [facility] Specific gravity (U) [Rel density] 1.032 High 1.005 - 1.030 [facility] Urobilinogen Ql (U) Normal Normal [facility] Office Visiton 05-30-2023 Follow-up visit [id number] Roma Benitez 1955 M Date Provider Department Center 05/30/2023 [id number], BERRY CARD [facility] Family History Problem Relation Age of Onset Sick sinus syndrome Father Other Other Family Status - Relation Status Age at Father Other Level of Service:68836 AL OFFICE/OUTPATIENT ESTABLISHED LOW MDM 20-29 MIN Normal [facility] GLYCOHEMOGLOBIN A1Con 2022 ADA RECOMMENDATION SEE BELOW Normal [facility] Comment on above: Result Comment: ADA RECOMMENDED LIMIT 4.0 - 6.0 ADA THERAPEUTIC TARGET < 7.0 ACTION SUGGESTED > 7.0 Performed By: #### A 1C #### [facility] [address] [address] [address] Chari Lantigua Glucose [Mass/Vol] 126 mg/dL Normal [facility] Comment on above: Performed By: #### A 1C #### [facility] [address] [place] [address] Dr. Chari Lantigua HbA1c (Bld) [Mass fraction] 6.0 % Normal 4.5-6.2 [facility] Comment on above: Performed By: #### A 1C #### [facility] [address] [place] [address] Dr. Chari Lantigua MICROALB CREAT RATIO RANDOMo n 07-21-2022 mALB 3.7 mg/L Normal <=30.0 [facility] Comment on above: Performed By: #### M CRR #### [facility] [address] [place] [address] Dr. Chari Lantigua MALB CR RATIO 14.4 mg/g Normal 0.0-29.9 [facility] Comment on above: Performed By: #### M CRR #### [facility] [address] [place] [address] Dr. Chari Lantigua MALB CR RATIO RANGE SEE BELOW Normal [facility] Comment on above: Result Comment: NO M ICROALBUMINURIA 0-29 MG/G CLINICAL MICROALBUMINURIA 30-300 MG/G MACROALBUMINURIA >300 MG/G Performed By: #### M CRR #### [facility] [address] [place] [address] Dr. Chari Lantigua URINE CREAT 257.81 mg/dL Normal 20.00-300.00 [facility] Comment on above: Performed By: #### M CRR #### [facility] [address] [address] [address] Chari Lantigua PROF 14(COMP METB)on 023 Albumin [Mass/Vol] 4.0 g/dL Normal 3.4-5.0 [facility] Comment on above: Performed By: #### C BC #### [facility] [address] [place] [address] Dr. Chari Lantigua Albumin/Globulin [Mass ratio] 1.2 {ratio} Normal [facility] Comment on above: Performed By: #### C BC #### [facility] [address] [place] [address] Dr. Chari Lantigua ALP [Catalytic activity/Vol] 83 U/L Normal 46-116 [facility] Comment on above: Performed By: #### C BC #### [facility] [address] [place] [address] Dr. Chari Lantigua ALT [Catalytic activity/Vol] 46 U/L Normal 16-63 [facility] Comment on above: Performed By: #### C BC #### [facility] [address] [place] [address] Dr. Chari Lantigua Anion gap [Moles/Vol] 14.0 mmol/L Normal [facility] Comment on above: Performed By: #### C BC #### [facility] [address] [place] [address] Dr. Chari Lantigua AST [Catalytic activity/Vol] 30 U/L Normal 15-37 [facility] Comment on above: Performed By: #### C BC #### [facility] [address] [place] [address] Dr. Chari Lantigua Bilirubin [Mass/Vol] 0.5 mg/dL Normal 0.2-1.0 [facility] Comment on above: Performed By: #### C BC #### [facility] [address] [place] [address] Dr. Chari Lantigua Calcium [Mass/Vol] 8.9 mg/dL Normal 8.5-10.1 [facility] Comment on above: Performed By: #### C BC #### [facility] [address] [place] [address] Dr. Chari Lantigua Chloride [Moles/Vol] 104 mmol/L Normal 98-107 [facility] Comment on above: Performed By: #### C BC #### [facility] [address] [place] [address] Dr. Chari Lantigua CO2 [Moles/Vol] 28.7 mmol/L Normal 21.0-32.0 [facility] Comment on above: Performed By: #### C BC #### [facility] [address] [place] [address] Dr. Chari Lantigua Creatinine [Mass/Vol] 0.81 mg/dL Normal 0.70-1.30 [facility] Comment on above: Performed By: #### C BC #### [facility] [address] [address] [address] Chari Lantigua EGFR-AF EGYPTIAN >60 Normal >=60 [facility] Comment on above: Performed By: #### C BC #### [facility] [address] [address] [address] Chari Lantigua EGFR-NON AF EGYPTIAN >60 Normal >=60 [facility] Comment on above: Performed By: #### C BC #### [facility] [address] [address] [address] Chari Lantigua Globulin (S) [Mass/Vol] 3.4 g/dL Normal [facility] Comment on above: Performed By: #### C BC #### [facility] [address] [address] [address] Chari Lantigua Glucose [Mass/Vol] 120 mg/dL Critically high 74-106 [facility] Comment on above: Performed By: #### C BC #### [facility] [address] [address] [address] Chari Lantigua Potassium [Moles/Vol] 4.7 mmol/L Normal 3.5-5.1 [facility] Comment on above: Performed By: #### C BC #### [facility] [address] [address] [address] Chari Lantigua Protein [Mass/Vol] 7.4 g/dL Normal 6.4-8.2 [facility] Comment on above: Performed By: #### C BC #### [facility] [address] [address] [address] Chari Lantigua Sodium [Moles/Vol] 142 mmol/L Normal 136-145 [facility] Comment on above: Performed By: #### C BC #### [facility] [address] [address] [address] Chari Lantigua Urea nitrogen [Mass/Vol] 21.0 mg/dL Critically high 7.0-18.0 [facility] Comment on above: Performed By: #### C BC #### [facility] [address] [address] [address] Chari Lantigua Urea nitrogen/Creatinine [Mass ratio] 25.9 mg/mg Normal [facility] Comment on above: Performed By: #### C BC #### [facility] [address] [place] [address] Dr. Chari Lantigua UA RANDOMon 07-21-2022 Bilirubin Ql (U) Negative Normal NEGATIVE [facility] Comment on above: Performed By: #### C BC #### [facility] [address] [place] [address] Dr. Chari Lantigua Clarity (U) CLEAR Normal CLEAR [facility] Comment on above: Performed By: #### C BC #### [facility] [address] [place] [address] Dr. Chari Lantigua Color (U) YELLOW Normal YELLOW [facility] Comment on above: Performed By: #### C BC #### [facility] [address] [place] [address] Dr. Chari Lantigua Glucose Ql (U) Negative Normal NEGATIVE [facility] Comment on above: Performed By: #### C BC #### [facility] [address] [place] [address] Dr. Chari Lantigua Hemoglobin Ql (U) Negative Normal NEGATIVE [facility] Comment on above: Performed By: #### C BC #### [facility] [address] [place] [address] Dr. Chari Lantigua Ketones Ql (U) Negative Normal NEGATIVE [facility] Comment on above: Performed By: #### C BC #### [facility] [address] [place] [address] Dr. Chari Lantigua LEUKOCYTES Negative Normal NEGATIVE [facility] Comment on above: Performed By: #### C BC #### [facility] [address] [place] [address] Dr. Chari Lantigua Nitrite Ql (U) Negative Normal NEGATIVE [facility] Comment on above: Performed By: #### C BC #### [facility] [address] [place] [address] Dr. Chari Lantigua pH (U) 6.0 [pH] Normal 5-9 [facility] Comment on above: Performed By: #### C BC #### [facility] [address] [place] [address] Dr. Chari Lantigua SPEC GRAVITY 1.025 Normal 1.005-<=1.02 5 [facility] Comment on above: Performed By: #### C BC #### [facility] [address] [place] [address] Dr. Chari Lantigua UA PROTEIN Negative Normal NEGATIVE/ TRACE [facility] Comment on above: Performed By: #### C BC #### [facility] [address] [place] [address] Dr. Chari Lantigua Urobilinogen Qn (U) 0.2 {Kyle'U}/dL Normal 0.2 - 1. 0 [facility] Comment on above: Performed By: #### C BC #### [facility] [address] [place] [address] Dr. Chari Lantigua PROF CHEM 8 (BAS METB)on Anion gap [Moles/Vol] 11.3 mmol/L Normal [facility] Comment on above: Performed By: #### C BC #### [facility] [address] [place] [address] Dr. Chari Lantigua Calcium [Mass/Vol] 8.8 mg/dL Normal 8.5-10.1 [facility] Comment on above: Performed By: #### C BC #### [facility] [address] [place] [address] Dr. Chari Lantigua Chloride [Moles/Vol] 103 mmol/L Normal 98-107 [facility] Comment on above: Performed By: #### C BC #### [facility] [address] [place] [address] Dr. Chari Lantigua CO2 [Moles/Vol] 29.2 mmol/L Normal 21.0-32.0 [facility] Comment on above: Performed By: #### C BC #### [facility] [address] [place] [address] Dr. Chari Lantigua Creatinine [Mass/Vol] 0.72 mg/dL Normal 0.70-1.30 [facility] Comment on above: Performed By: #### C BC #### [facility] [address] [place] [address] Dr. Chari Lantigua EGFR-AF EGYPTIAN >60 Normal >=60 [facility] Comment on above: Performed By: #### C BC #### [facility] [address] [place] [address] Dr. Chari Lantigua EGFR-NON AF EGYPTIAN >60 Normal >=60 [facility] Comment on above: Performed By: #### C BC #### [facility] [address] [place] [address] Dr. Chari Lantigua Glucose [Mass/Vol] 133 mg/dL Critically high 74-106 [facility] Comment on above: Performed By: #### C BC #### [facility] [address] [place] [address] Dr. Chari Lantigua Potassium [Moles/Vol] 4.5 mmol/L Normal 3.5-5.1 [facility] Comment on above: Performed By: #### C BC #### [facility] [address] [place] [address] Dr. Chari Lantigua Sodium [Moles/Vol] 139 mmol/L Normal 136-145 [facility] Comment on above: Performed By: #### C BC #### [facility] [address] [place] [address] Dr. Chari Lantigua Urea nitrogen [Mass/Vol] 16.0 mg/dL Normal 7.0-18.0 [facility] Comment on above: Performed By: #### C BC #### [facility] [address] [place] [address] Dr. Chari Lantigua Urea nitrogen/Creatinine [Mass ratio] 22.2 mg/mg Normal [facility] Comment on above: Performed By: #### C BC #### [facility] [address] [place] [address] Dr. Chari Lantigua SURGICAL PATHOLOGYon 25-2 022 Case Report Surgical Pathology Report Case: [id number] Authorizing Provider: Hugo Garcia MD Collected: 04/12/2022 [...] PROSTATE NEEDLE BIOPSY RIGHT, posterior x 2 [facility] Clinical History elevated PSA Clevel and Clinic [...] been determined by the performing laboratory within [facility] s [facility] Pathology and Laboratory Medicine [place] ([facility], [facility], [facility] or [facility]) in a manner consistent with CLIA requirements. One or more of these tests have not been cleared or approved by the FDA. [facility] is regulated under CLIA as qualified to perform high-complexity testing. These tests are used for clinical purposes. They should not be regarded as investigational or for research. Positive and negative controls stain appropriately. [facility] FINAL DIAGNOSIS A. Prostate, left mi d [...] biopsy: - Benign prostate tissue. JOLENE/laurie 04/17/2022 [facility] Gross Description A. PROSTATE NEEDLE BIOPSY LEFT [...] in one cassette. Gross examination performed at [facility], [address] [place], [place] [id number] 04/12/2022 10:13 PM [facility] Performing Lab Diagnostic interpretation performed at [facility], [address] [place], [place] [id number] [place]# [id number] Records Administrator: Gutierrez Jha M.D. [facility] UA DIP, URINE (POC)on 2021 BILIRUBIN UA (POCT) Negative Negative [facility] CLARITY UA (POCT) Clear [facility] COLOR UA (POCT) Yellow [facility] GLUCOSE UA (POCT) Negative Negative mg/dL [facility] HEMOGLOBIN/BLOOD UA (POCT) Negative Negative [facility] KETONE UA (POCT) Negative Negative mg/dL [facility] LEUKOCYTES UA (POCT) Negative Negative [facility] NITRITE UA (POCT) Negative Negative [facility] PH UA (POCT) 6.0 4.5 - 8.0 [facility] Protein Ql (U) Negative Negative mg/dL [facility] SPECIFIC GRAVITY UA (POCT) 1.025 1.005 - 1.030 [facility] UROBILINOGEN UA (POCT) 0.2 E.U./dL Normal E.U./dL [facility] US TRANSRECTAL PROSTATE (ALEXEI S) (POC) GUKI USE ONLYon 04-12-2022 [facility] Covid-19 PCR (CVDTBH)on 01-22 SARS-CoV-2 (COVID-19) RNA ILA+probe Ql (Unsp spec) Detected Critically abnormal NOT DETECTED [facility] Comment on above: Result Comment: This test is not yet approved or cleared by the [place] FDA. When there are no FDA-approved or cleared tests available, and other criteria are met, FDA can make tests available under an emergency access mechanism called an Emergency Use Authorization (EUA). The EUA for this test is supported by the [place] of Health and Human Service's (HHS's) declaration [...] used). Performed By: #### C VDTBH #### [facility] [address] [place] [address] Dr. Chari Lantigua INFLUENZA A AND B AGon 02-08 INFLUENZA A AG Negative Normal NEGATIVE SEE COMMENT [facility] Comment on above: Performed By: #### I NFLUAB #### [facility] [address] [place] [address] Dr. Chari Lantigua INFLUENZA B AG Negative Normal NEGATIVE SEE COMMENT [facility] Comment on above: Performed By: #### I NFLUAB #### [facility] [address] [place] [address] Dr. Chari Lantigua INTERNAL CONTROLS Within Normal Limits Normal Wi thin Normal Limits [facility] Comment on above: Performed By: #### I NFLUAB #### [facility] [address] [place] [address] Dr. Chari Lantigua CBC AUTO DIFFon 01-19-2022 BASO # 0.0 103/ul Normal 0.0-0.1 [facility] Comment on above: Performed By: #### C BC #### [facility] [address] [place] [address] Dr. Chari Lantigua Basophils/100 WBC (Bld) 0.3 % Normal 0.2-2.0 [facility] Comment on above: Performed By: #### C BC #### [facility] [address] [place] [address] Dr. Chari Lantigua EO # 0.2 103/ul Normal 0.0-0.7 [facility] Comment on above: Performed By: #### C BC #### [facility] [address] [place] [address] Dr. Chari Lantigua Eosinophils/100 WBC (Bld) 3.1 % Normal 0.9-7.0 [facility] Comment on above: Performed By: #### C BC #### [facility] [address] [place] [address] Dr. Chari Lantigua Erythrocyte distribution width (RBC) [Ratio] 13.2 % Normal 11.0-15.0 [facility] Comment on above: Performed By: #### C BC #### [facility] [address] [place] [address] Dr. Chari Lantigua Hematocrit (Bld) [Volume fraction] 43.4 % Normal 42.0-54.0 [facility] Comment on above: Performed By: #### C BC #### [facility] [address] [place] [address] Dr. Chari Lantigua Hemoglobin (Bld) [Mass/Vol] 14.5 g/dL Normal 14.0-18.0 [facility] Comment on above: Performed By: #### C BC #### [facility] [address] [place] [address] Dr. Chari Lantigua IG # 0.03 10e3/ul Normal 0.00-0.03 [facility] Comment on above: Performed By: #### C BC #### [facility] [address] [address] [address] Chari Lantigua IG % 0.4 % Normal 0.0-0.5 [facility] Comment on above: Performed By: #### C BC #### [facility] [address] [address] [address] Chari Lantigua LYMPH # 1.7 103/ul Normal 1.2-3.8 [facility] Comment on above: Performed By: #### C BC #### [facility] [address] [place] [address] Dr. Chari Lantgiua Lymphocytes/100 WBC (Bld) 23.1 % Normal 20.5-60.0 [facility] Comment on above: Performed By: #### C BC #### [facility] [address] [place] [address] Dr. Chari Lantigua MANUAL DIFF REQ NO Normal [facility] Comment on above: Performed By: #### C BC #### [facility] [address] [place] [address] Dr. Chari Lantigua MCH (RBC) [Entitic mass] 31.3 pg Normal 25.9-34.0 [facility] Comment on above: Performed By: #### C BC #### [facility] [address] [place] [address] Dr. Chari Lantigua MCHC (RBC) [Mass/Vol] 33.4 g/dL Normal 29.9-35.2 [facility] Comment on above: Performed By: #### C BC #### [facility] [address] [place] [address] Dr. Chari Lantigua MCV (RBC) [Entitic vol] 93.7 fL Normal 80.0-94.0 [facility] Comment on above: Performed By: #### C BC #### [facility] [address] [place] [address] Dr. Chari Lantigua MONO # 0.9 103/ul Critically high 0.3-0.8 [facility] Comment on above: Performed By: #### C BC #### [facility] [address] [place] [address] Dr. Chari Lantigua Monocytes/100 WBC (Bld) 12.1 % Critically high 1.7-12.0 [facility] Comment on above: Performed By: #### C BC #### [facility] [address] [address] [address] Chari Lantigua NEUT # 4.6 103/ul Normal 1.4-6.5 [facility] Comment on above: Performed By: #### C BC #### [facility] [address] [address] [address] Chari Lantigua Neutrophils/100 WBC (Bld) 61.0 % Normal 43.0-75.0 [facility] Comment on above: Performed By: #### C BC #### [facility] [address] [address] [address] Chari Lantigua Platelet mean volume (Bld) [Entitic vol] 8.2 fL Critically low 9.5-13.5 [facility] Comment on above: Performed By: #### C BC #### [facility] [address] [address] [address] Chari Lantigua PLT 219 103/ul Normal 150-450 [facility] Comment on above: Performed By: #### C BC #### [facility] [address] [address] [address] Chari Lantigua RBC 4.63 106/ul Critically low 4.70-6.10 [facility] Comment on above: Performed By: #### C BC #### [facility] [address] [address] [address] Chari Lantigua WBC 7.5 103/ul Normal 4.0-11.0 [facility] Comment on above: Performed By: #### C BC #### [facility] [id number] Chari Lantigua GLYCOHEMOGLOBIN A1Con 2021 ADA RECOMMENDATION SEE BELOW Normal [facility] Comment on above: Result Comment: ADA RECOMMENDED LIMIT 4.0 - 6.0 ADA THERAPEUTIC TARGET < 7.0 ACTION SUGGESTED > 7.0 Performed By: #### C BC #### [facility] [address] [address] [address] Chari Lantigua Glucose [Mass/Vol] 140 mg/dL Normal [facility] Comment on above: Performed By: #### C BC #### [facility] [address] [address] [address] Chari Lantigua HbA1c (Bld) [Mass fraction] 6.5 % Critically high 4.5-6.2 [facility] Comment on above: Performed By: #### C BC #### [facility] [address] [address] [address] Chari Lantigua LIPID PROFILEon 01-19-2022 CHOL-HDL RATIO NORM SEE BELOW Normal [facility] Comment on above: Result Comment: 3.3 - 4.4 LOW RISK 4.4 - 7.1 AVERAGE RISK 7.1 - 11.0 MODERATE RISK >11.0 HIGH RISK Performed By: #### C MP, LIPID #### [facility] [address] [place] [address] Dr. Chari Lantigua Cholesterol [Mass/Vol] 139 mg/dL Normal <=200 [facility] Comment on above: Performed By: #### C MP, LIPID #### [facility] [address] [place] [address] Dr. Chari Lantigua Cholesterol in HDL [Mass/Vol] 42 mg/dL Normal 40-60 [facility] Comment on above: Performed By: #### C MP, LIPID #### [facility] [address] [address] [address] Chari Lantigua Cholesterol in LDL [Mass/Vol] 71.4 mg/dL Normal [facility] Comment on above: Performed By: #### C MP, LIPID #### [facility] [address] [address] [address] Chari Lantigua Cholesterol.total/Cho lesterol in HDL [Mass ratio] 3.3 {ratio} Normal [facility] Comment on above: Performed By: #### C MP, LIPID #### [facility] [address] [address] [address] Chari Lantigua HDL NORMAL > or = 60 mg/dl - LO W CARDIOVASCULAR RISK <40 mg/dl - HIGH CARDIOVASCULAR RISK Normal [facility] Comment on above: Performed By: #### C MP, LIPID #### [facility] [address] [address] [address] Chari Lantigua LDL CALC NORMAL SEE BELOW Normal [facility] Comment on above: Result Comment: <100 mg/dl OPTIMAL 100 - 129 mg/dl NEAR OR ABOVE OPTIMAL 130 - 159 mg/dl BORDERLINE HIGH 160 - 189 mg/dl HIGH >190 mg/dl VERY HIGH Performed By: #### C MP, LIPID #### [facility] [address] [place] [address] Dr. Chari Lantigua Triglyceride [Mass/Vol] 128 mg/dL Normal <=150 [facility] Comment on above: Performed By: #### C MP, LIPID #### [facility] [address] [place] [address] Dr. Chari Lantigua VLDL CALC 25.6 mg/dL Normal [facility] Comment on above: Performed By: #### C MP, LIPID #### [facility] [address] [place] [address] Dr. Chari Lantigua PROF 14(COMP METB)on 022 Albumin [Mass/Vol] 3.6 g/dL Normal 3.4-5.0 [facility] Comment on above: Performed By: #### C MP, LIPID #### [facility] [address] [place] [address] Dr. Chari Lantigua Albumin/Globulin [Mass ratio] 1.2 {ratio} Normal [facility] Comment on above: Performed By: #### C MP, LIPID #### [facility] [address] [place] [address] Dr. Chari Lantigua ALP [Catalytic activity/Vol] 71 U/L Normal 46-116 [facility] Comment on above: Performed By: #### C MP, LIPID #### [facility] [address] [place] [address] Dr. Chari Lantigua ALT [Catalytic activity/Vol] 38 U/L Normal 16-63 [facility] Comment on above: Performed By: #### C MP, LIPID #### [facility] [address] [address] [address] Chari Lantigua Anion gap [Moles/Vol] 10.3 mmol/L Normal [facility] Comment on above: Performed By: #### C MP, LIPID #### [facility] [address] [address] [address] Chari Lantigua AST [Catalytic activity/Vol] 26 U/L Normal 15-37 [facility] Comment on above: Performed By: #### C MP, LIPID #### [facility] [address] [address] [address] Chari Lantigua Bilirubin [Mass/Vol] 0.7 mg/dL Normal 0.2-1.0 [facility] Comment on above: Performed By: #### C MP, LIPID #### [facility] [address] [place] [address] Dr. Chari Lantigua Calcium [Mass/Vol] 8.5 mg/dL Normal 8.5-10.1 [facility] Comment on above: Performed By: #### C MP, LIPID #### [facility] [address] [place] [address] Dr. Chari Lantigua Chloride [Moles/Vol] 105 mmol/L Normal 98-107 [facility] Comment on above: Performed By: #### C MP, LIPID #### [facility] [address] [place] [address] Dr. Chari Lantigua CO2 [Moles/Vol] 30.3 mmol/L Normal 21.0-32.0 [facility] Comment on above: Performed By: #### C MP, LIPID #### [facility] [address] [address] [address] Chari Lantigua Creatinine [Mass/Vol] 0.77 mg/dL Normal 0.70-1.30 [facility] Comment on above: Performed By: #### C MP, LIPID #### [facility] [address] [place] [address] Dr. Chari Lantigua EGFR-AF EGYPTIAN >60 Normal >=60 [facility] Comment on above: Performed By: #### C MP, LIPID #### [facility] [address] [address] [address] Chari Lantigua EGFR-NON AF EGYPTIAN >60 Normal >=60 [facility] Comment on above: Performed By: #### C MP, LIPID #### [facility] [address] [address] [address] Chari Lantigua Globulin (S) [Mass/Vol] 3.0 g/dL Normal [facility] Comment on above: Performed By: #### C MP, LIPID #### [facility] [address] [address] [address] Chari Lantigua Glucose [Mass/Vol] 149 mg/dL Critically high 74-106 [facility] Comment on above: Performed By: #### C MP, LIPID #### [facility] [address] [place] [address] Dr. Chari Lantigua Potassium [Moles/Vol] 4.6 mmol/L Normal 3.5-5.1 [facility] Comment on above: Performed By: #### C MP, LIPID #### [facility] [address] [place] [address] Dr. Chari Lantigua Protein [Mass/Vol] 6.6 g/dL Normal 6.4-8.2 [facility] Comment on above: Performed By: #### C MP, LIPID #### [facility] [address] [place] [address] Dr. Chari Lantigua Sodium [Moles/Vol] 141 mmol/L Normal 136-145 [facility] Comment on above: Performed By: #### C MP, LIPID #### [facility] [address] [place] [address] Dr. Chari Lantigua Urea nitrogen [Mass/Vol] 12.0 mg/dL Normal 7.0-18.0 [facility] Comment on above: Performed By: #### C MP, LIPID #### [facility] [address] [place] [address] Dr. Chari Lantigua Urea nitrogen/Creatinine [Mass ratio] 15.6 mg/mg Normal [facility] Comment on above: Performed By: #### C MP, LIPID #### [facility] [address] [place] [address] FOOT RT WO [...] CHAPIS HUANG Date: 2021-11-06 09:52 Normal [facility] MRI PROSTATE WO/W IVCONon [facility] HOMOCYSTEINEon 10-12-2021 Homocyst(e)ine, Plasma 7.7 umol/L Normal 0.0-17.2 [facility] Comment on above: Performed By: #### H OMCY #### [facility] [address] [place] [address] Dr. Chari Lantigua ANTI-BETA 2 GLYCOPROTEIN 1on 10-06-2021 ANTI B2GP1 IGG 0.1 g units Normal 0.0-19.9 [facility] Comment on above: Performed By: #### 9 0118, [id number] #### [facility] [address] [address], [facility] ANTI B2GP1 IGM 1.7 m units Normal 0.0-19.9 [facility] Comment on above: Performed By: #### 9 0118, [id number] #### [facility] [address] [place] [address], [facility] ANTICARDIOLIPIN ANTIBODYon 0 10-06-2021 CARDIOLIPIN IGG 1.6 GPL Normal 0.0-22.9 [facility] Comment on above: Performed By: #### 9 0118, [id number] #### [facility] [address] [place] [address], [facility] CARDIOLIPIN IGM 0.9 MPL Normal 0.0-10.9 [facility] Comment on above: Performed By: #### 9 0118, 83269 #### [facility] [address] [address], [facility] ANTITHROMBIN III ACTIVITYon 10-06-2021 AT 3 ACTIVITY 100 % Normal 70-120 [facility] Comment on above: Performed By: #### 5 3017, 33251, 58603, 74947 #### [facility] [address]. [address] FACTOR V [place] R506Q [place] [id number] 10-06-2021 FACTOR V LEIDEN Heterozygous Abnormal [facility] Comment on above: Result Comment: Alem cation for testing: Assess genetic risk for thrombosis. HETEROZYGOUS: One copy of the factor V Leiden variant, c.1601G>A; p.Cpw552Wbd, was detected. This is associated with activated [...] function in the F5 gene variant c.1601G>A (p.Hny442Vzc). Legacy nomenclature: R506Q (1691G>A) CLINICAL SENSITIVITY: 20-50 percent of individuals with an isolated VTE have the FVL variant. METHODOLOGY: Polymerase chain reaction and fluorescence monitoring. ANALYTICAL SENSITIVITY AND SPECIFICITY: 99 percent. LIMITATIONS: Diagnostic errors can occur due to rare sequence variations. F5 gene mutations, other than p.Svl354Svx, will not be detected. This test was developed and its performance characteristics determined by [facility]. It has not been cleared or approved by the [place] Food and Drug Administration. This test was performed in a CLIA certified laboratory and is intended for clinical purposes. Counseling and informed consent are recommended for genetic testing. Consent forms are available online. Performed By: [facility] [address] [place] [id number] Records Administrator: Harriett Martins MD FAC SPECIMEN Whole Blood Normal [facility] LUPUS ANTICOAGULANTon 2021 LUPUS ANTICOAGUL Negative Normal NEGATIVE [facility] Comment on above: Result Comment: BY H EXAGONAL PHASE PHOSPHOLIPID METHODOLOGY Performed By: #### 5 3017, 65615, 03263, 24087 #### [facility] [address] [place] [address], [place] PROTEIN C ACTIVITYon 022 PROTEIN C ACTIV 110 % Normal 60-140 [facility] Comment on above: Performed By: #### 5 3017, 73590, 81956, 22617 #### [facility] [address] [place] [address], [place] PROTEIN S ACTIVITYon 022 PROTEIN S ACTIV 81 % Normal 60-165 [facility] Comment on above: Performed By: #### 5 3017, 08149, 91594, 64085 #### [facility] [address] PROTHROMBIN (F2) [id number] 560 60on 10-06-2021 PROTHROMBIN FRET ( PCR AND FRET) Negative Normal [facility] Comment on above: Result Comment: Alem cation for testing: Assess genetic risk for thrombosis. NEGATIVE: The Factor II, prothrombin [id number] mutation, was not detected. Other causes of [...] M.D., Ph.D. 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 PATHOGENIC VARIANT TESTED: F2 c.*97G>A (L48684L). CLINICAL SENSITIVITY FOR VENOUS THROMBOSIS: Approximately 10 percent. METHODOLOGY: Polymerase chain reaction and fluorescence monitoring. ANALYTICAL SENSITIVITY AND SPECIFICITY: 99 percent. LIMITATIONS: Diagnostic errors can occur due to rare sequence variations. F2 gene variants, other than c.*97G>A (O31181H), will not be detected. This test was developed and its performance characteristics determined by [facility]. It has not been cleared or approved by the US Food and Drug Administration. This test was performed in a CLIA certified laboratory and is intended for clinical purposes. Counseling and informed consent are recommended for genetic testing. Consent forms are available online. Performed By: [facility] [address] [place] [id number] Records Administrator: Harriett Martins MD PT PCR SPECIMEN Whole Blood Normal [facility] Cardiovascular Lab Reporton 11-19-2020 Cardiovascular Lab Report [facility] Patient Name: Marco Antonio Benitez [facility] Von MR #: [id number] Department of Physician: Donna Faith M.D. Division of Service Date: 11/18/2020 Cardiology Birthdate: 1955 Adult Cardiovascular Room #: [place] [address] Cardiovascular Laboratory Report FINAL IMPRESSIONS: 1. Severe, [...] the left radial artery was obtained. A 6-Russian 11 cm sheath was inserted without difficulty. [...] P/Berry Fisher M.D. Date Trans: 11/19/2020 05:18 A/leeo DN_[id number] cc: Annette Block M.D. [address] [place] [address] [place] [address] CARDIAC SCORING Addendum [...] INDICATION: Hyperlipidemia, unspecified. COMPARISON: None. ACCESSION NUMBER(S): [id number] ORDERING CLINICIAN: ANNETTE BLOCK TECHNIQUE: Using prospective [...] al. JACC 2014 ([email or web address]://dx.doi.org/10. 1016/j.j [email or web address]) [employer] Technician: Dr. Vaughn Park, Date: 10/24/2020 11:12 am Electronically signed by: MCKINLEY FARR MD [facility] Lower Ext/No Jt/w/oon 2017 Lower Ext/No Jt/w/o [facility] [address] [place], [place] [address]Ojxmi Ext/No Jt/w/oMR#: [id number] Acct: [id number]: MARCO ANTONIO BENITEZ Rep #: [id number]: 1955 M 63 From: Vincent Grier MDPCP: OUT OF TOWN DOCTOR Status: REG CLIStudy: Lower Ext/No Jt/w/o Date of Exam: 06/10/18Exam# [id number] Ordering Dr: Erin MinayaADDENDUM by Dajuan Camejo [...] theplain film.Electronically Signed:Behzad Camejo MD at 14:38 FonemeshTel , Service support , [id number] cc: Erin Minaya DPM; OUT OF TOWN [...] at 14:38 ESTTel , Service support , 12/ 1438Date cc: Erin Minaya DPM; OUT OF TOWN DOCTOR *SignedADDENDUM by Dajuan Camejo MD on 06/11/18 at 1438ORDER #: [id number] MRI/Lower Ext/No Jt/w/o108/12/17 1445Date cc: Erin Minaya DPM; OUT OF TOWN DOCTOR *SignedADDENDUM by Dajuan Camejo MD on 06/11/18 at 1438ORDER #: [id number] MRI/Lower Ext/No Jt/w/o108/12/17 1445Date cc: Erin Minaya [...] muscle.Normal subcutis adipose space. ORD ER #: [id number] MRI/Lower Ext/No Jt/w/oIMPRESSION:Posto perative changes are seen with fusion at the second tarsometatarsalarticul ation. 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 11-20-2024 17:20-0400 Body temperature 97.39 [degF] Marco Antonio Amanda DO Work Phone: [facility] 11-20-2024 17:20-0400 Body weight 97.52 kg Marco Antonio Amanda [employer] Work Phone: [facility] 11-20-2024 17:20-0400 Diastolic blood pressure 82 mm[Hg] Marco Antonio Amanda [employer] Work Phone: [facility] 11-20-2024 17:20-0400 Heart rate 72 /min Marco Antonio Amanda [employer] Work Phone: [facility] 11-20-2024 17:20-0400 SaO2% (BldA) [Mass fraction] 97 % Marco Antonio Aamnda [employer] Work Phone: [facility] 11-20-2024 17:20-0400 Systolic blood pressure 120 mm[Hg] Marco Antonio Amanda [employer] Work Phone: [facility] 08-18-2024 09:05-0500 Body height 172.7 cm Annette Block MD Work Phone: [facility] 08-18-2024 09:05-0500 Diastolic blood pressure 70 mm[Hg] Annette Block MD Work Phone: [facility] 08-18-2024 09:05-0500 Heart rate 90 /min Annette Block MD Work Phone: [facility] 08-18-2024 09:05-0500 SaO2% (BldA) [Mass fraction] 98 % Annette Block MD Work Phone: [facility] 08-18-2024 09:05-0500 Systolic blood pressure 122 mm[Hg] Annette Block MD Work Phone: [facility] 07-01-2024 09:39-0500 Body height 172.7 cm Domingo Silva [employer] Work Phone: [facility] 07-01-2024 09:39-0500 Body mass index (BMI) [Ratio] 34.52 kg/m2 Domingo Pastranaos [employer] Work Phone: [facility] 07-01-2024 09:39-0500 Body temperature 97.9 [degF] Domingo Pineda [employer] Work Phone: [facility] 07-01-2024 09:39-0500 Body weight 102.97 kg Domingo Pineda [employer] Work Phone: [facility] 07-01-2024 09:39-0500 Diastolic blood pressure 76 mm[Hg] Domingo Pineda [employer] Work Phone: [facility] 07-01-2024 09:39-0500 Heart rate 85 /min Domingo Pastranaos [employer] Work Phone: [facility] 07-01-2024 09:39-0500 SaO2% (BldA) [Mass fraction] 96 % Domingo Pastranaos [employer] Work Phone: [facility] 07-01-2024 09:39-0500 Systolic blood pressure 122 mm[Hg] Domingo Pastranaos [employer] Work Phone: [facility] 02-13-2024 09:04-0400 Body height 172.7 cm Evetet VIERA Work Phone: [facility] 02-13-2024 09:04-0400 Body mass index (BMI) [Ratio] 33.82 kg/m2 Summer Workman PA Work Phone: [facility] 02-13-2024 09:04-0400 Body weight 100.88 kg Summer Workman PA Work Phone: [facility] 02-13-2024 09:04-0400 Diastolic blood pressure 80 mm[Hg] Summer Workman PA Work Phone: [facility] 02-13-2024 09:04-0400 Heart rate 80 /min Summer [employer] PA Work Phone: [facility] 02-13-2024 09:04-0400 SaO2% (BldA) [Mass fraction] 97 % Summer Workman PA Work Phone: [facility] 02-13-2024 09:04-0400 Systolic blood pressure 128 mm[Hg] [facility] [employer] PA Work Phone: [facility] 11-22-2023 13:24-0400 Body height 172.7 cm Jevon Last MD Work Phone: [facility] 11-22-2023 13:24-0400 Body mass index (BMI) [Ratio] 32.8 kg/m2 Jevon Last MD Work Phone: [facility] 11-22-2023 13:24-0400 Body weight 97.85 kg Jevon Last MD Work Phone: [facility] 07-31-2023 09:03-0500 Body height 172.7 cm Yudy Risaliti [employer] Work Phone: [facility] 07-31-2023 09:03-0500 Body mass index (BMI) [Ratio] 32.84 kg/m2 Yudy Risaliti [employer] Work Phone: [facility] 07-31-2023 09:03-0500 Body weight 97.98 kg Yudy Risaliti [employer] Work Phone: [facility] 07-31-2023 09:03-0500 Diastolic blood pressure 76 mm[Hg] Yudy Risaliti [employer] Work Phone: [facility] [employer] 07-31-2023 09:03-0500 Heart rate 74 /min Yudy Arellanoyousuf [employer] Work Phone: [facility] [employer] 07-31-2023 09:03-0500 SaO2% (BldA) [Mass fraction] 96 % Yudy Iversonruthy [employer] Work Phone: [facility] [employer] 07-31-2023 09:03-0500 Systolic blood pressure 124 mm[Hg] Yudyita Arellanoyousuf [employer] Work Phone: [facility] [employer] 03-05-2023 11:20-0400 Body height 172.72 cm Preston Tejada Other [employer] Other 03-05-2023 11:20-0400 Body mass index (BMI) [Ratio] 32.99 kg/m2 Preston Tejada Other [employer] Other 03-05-2023 11:20-0400 Body weight 98.43 kg Preston Tejada Other [employer] Other 03-05-2023 11:20-0400 Diastolic blood pressure 80 mm[Hg] Preston Tejada Other [employer] Other 03-05-2023 11:20-0400 Systolic blood pressure 126 mm[Hg] Preston Tejada Other [employer] Other 03-08-2022 12:40-0400 Body height 172.72 cm Preston Tejada Other [employer] Other 03-08-2022 12:40-0400 Body mass index (BMI) [Ratio] 36.94 kg/m2 Preston Tejada Other [employer] Other 03-08-2022 12:40-0400 Body weight 110.22 kg Preston Tejada Other [employer] Other 02-15-2022 12:30-0400 Body height 172.72 cm Annette Callaway II Other [employer] Other 02-15-2022 12:30-0400 Body mass index (BMI) [Ratio] 36.94 kg/m2 Annette Callaway II Other [employer] Other 02-15-2022 12:30-0400 Body weight 110.22 kg Annette Callaway II Other [employer] Other Encounters Encounter Date Encounter Type Care Provider Facility Start: 02-04-2025 End: 02-04-2025 Bamboo flowsheet Marylaz Guzmánan PT [facility] Start: 02-04-2025 End: 02-04-2025 Bamboo flowsheet Mary Ariellean PT [facility] Start: 02-04-2025 End: 02-04-2025 ambulatory Mary Ariellean PT [facility] Comment on above: Peroneal tendonitis, right (Primary Dx) Start: 02-01-2025 End: 02-02-2025 ambulatory Mary Ariellean PT [facility] Comment on above: Peroneal tendonitis, right (Primary Dx) Start: 02-01-2025 End: 02-01-2025 Bamboo flowsheet Mary Keithneran PT [facility] Start: 02-01-2025 End: 02-01-2025 Bamboo flowsheet Mary Finneran PT [facility] Start: 01-20-2025 End: 01-20-2025 Office outpatient visit 15 minutes Bob Jim MD Work Phone: Orthopaedics Comment on above: Arthritis of right m idfoot (Primary Dx); Peroneal tendinitis of lower leg, right Start: 01-20-2025 End: 01-21-2025 Clinisync Result Encounter Generic External Data Provider [facility] External Department Unsolicited Start: 01-20-2025 End: 01-21-2025 Clinisync Result Encounter Generic External Data Provider [facility] External Department Unsolicited Start: 01-20-2025 End: 01-20-2025 Orders Only Mariah Workman APRN.CNP Work Phone: Urology Comment on above: Prostate cancer (HCC ) (Primary Dx) Pain in right foot [ M79.671] Start: 01-19-2025 End: 01-19-2025 Orders Only Bob Jim MD Work Phone: Orthopaedics Comment on above: Pain in right foot ( Primary Dx) Start: 11-20-2024 End: 11-20-2024 Office outpatient visit 25 minutes Marco Antonio Amanda DO Work Phone: [facility] Comment on above: Acute bronchitis, un specified organism (Primary Dx) Start: 11-20-2024 End: 11-20-2024 ambulatory MARCO ANTONIO AMANDA Not Available Start: 08-21-2024 End: 08-21-2024 Telephone encounter Clemente Vega MA [facility] Comment on above: Med Refill Start: 08-18-2024 End: 08-18-2024 Office outpatient visit 25 minutes Annette Block MD Work Phone: [facility] Comment on above: Pure hypercholestero lemia (CMS/HCC) (Primary Dx); 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 (CMS/HCC); Prediabetes; Generalized anxiety disorder (CMS/HCC); Primary insomnia; Vitamin D deficiency; History of malignant neoplasm of prostate; Obesity (BMI 30.0-34.9) Start: 08-18-2024 End: 08-18-2024 ambulatory ANNETTE BLOCK Not Available Start: 08-14-2024 End: 08-14-2024 Clinisync Result Encounter Generic External Data Provider [facility] External Department Unsolicited Start: 08-14-2024 End: 08-14-2024 Clinisync Result Encounter Generic External Data Provider [facility] External Department Unsolicited Start: 07-22-2024 End: 07-22-2024 Sanjiv Cardenas DO Work Phone: [facility] Start: 07-22-2024 End: 07-22-2024 Bamboo flowsheet JrGiovany Yeimi Otero Stepanic DO Work Phone: [facility] Start: 07-22-2024 End: 07-22-2024 Postop follow up visit related to original px Adalberto Lyn KENNEL HELPER Work Phone: [facility] Comment on above: History of right kne e joint replacement (Primary Dx); Acute pain of right knee; Strain of right shoulder, initial encounter Start: 07-22-2024 End: 07-22-2024 ambulatory JR. YEIMI Branden CARDENAS Not Available Start: 07-01-2024 End: 07-01-2024 Telephone encounter Gretchenjean-pierre Lozano JEYSON [facility] Comment on above: needs rx for cough s yrup Start: 07-01-2024 End: 07-01-2024 Office outpatient visit 25 minutes Domingo Silva KENNEL HELPER Work Phone: [facility] Comment on above: Acute cough (Primary Dx); Bronchitis; Decreased breath sounds at right lung base Start: 07-01-2024 End: 07-01-2024 ambulatory DOMINGO SILVA Not Available Start: 05-25-2024 End: 05-25-2024 ambulatory [facility] Start: 05-23-2024 End: 05-23-2024 Clinisync Result Encounter Generic External Data Provider [facility] External Department Unsolicited Start: 05-23-2024 End: 05-23-2024 Clinisync Result Encounter Generic External Data Provider [facility] External Department Unsolicited Start: 05-11-2024 End: 05-11-2024 Telephone encounter Yeimi Otero Stepanic DO Work Phone: [facility] Comment on above: dentist Start: 04-22-2024 End: 04-22-2024 Bamboo flowsheet Yeimi Branden Stepanic DO Work Phone: [facility] Start: 04-22-2024 End: 04-22-2024 Bamboo flowsheet Yeimi Branden Stepanic DO Work Phone: [facility] Start: 04-22-2024 End: 04-22-2024 Office outpatient visit 25 minutes Jr. Yeimi Cardenas DO Work Phone: [facility] Comment on above: Internal derangement of right shoulder (Primary Dx) Start: 04-22-2024 End: 04-22-2024 ambulatory YEIMI RICHEY STEPANDREW Not Available Start: 04-16-2024 End: 04-16-2024 ambulatory YEIMI RICHEY STEPANIC Not Available Start: 04-10-2024 End: 04-10-2024 Bamboo flowsheet Jr. Yeimi Haqanic DO Work Phone: [facility] Start: 04-10-2024 End: 04-10-2024 Bamboo flowsheet Jr. Yeimi Otero Stepanic DO Work Phone: [facility] Start: 04-10-2024 End: 04-10-2024 Office outpatient visit 25 minutes JrGiovany Cardenas DO Work Phone: [facility] Comment on above: Acute pain of right shoulder (Primary Dx); Internal derangement of right shoulder Start: 04-10-2024 End: 04-10-2024 ambulatory YEIMI RICHEY Not Available Start: 03-04-2024 End: 03-04-2024 Patient encounter procedure MD Annette Block Work Phone: [facility] Work Phone: Start: 03-04-2024 End: 03-04-2024 ambulatory MD Annette Block Work Phone: [facility] Work Phone: Start: 02-26-2024 End: 02-26-2024 ambulatory SUMMER M WORKMAN Not Available Start: 02-13-2024 End: 02-13-2024 Office outpatient visit 25 minutes Summer M Workman PA Work Phone: [facility] Comment on above: Essential hypertensi on (CMS/HCC) (Primary Dx); 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 (CMS/HCC); Prediabetes; Pure hypercholesterolemia (CMS/HCC); Generalized anxiety disorder (CMS/HCC); Primary insomnia; Medicare annual wellness visit, subsequent; ACP (advance care planning); Prostate cancer screening; Osteopenia of multiple sites Start: 02-13-2024 End: 02-13-2024 Patient encounter procedure Evette Duffy AYLIN Work Phone: [facility] Start: 02-13-2024 End: 02-13-2024 ambulatory EVETTE DUFFY Not Available Start: 02-11-2024 End: 02-11-2024 Clinisync Result Encounter Generic External Data Provider [facility] External Department Unsolicited Start: 02-11-2024 End: 02-11-2024 Clinisync Result Encounter Generic External Data Provider [facility] External Department Unsolicited Start: 11-22-2023 ambulatory Jevon Last MD Work Phone: Urology Start: 11-22-2023 End: 11-22-2023 Patient encounter procedure Jevon Last MD Work Phone: Urology Comment on above: [...] minutes Yudy Gupta NP Work Phone: [facility] Comment on above: Essential (primary) hypertension (CMS/HCC) (Primary Dx); Pure hypercholesterolemia (CMS/HCC); Prediabetes; 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 (CMS/HCC); Gastroesophageal reflux disease without esophagitis; Generalized anxiety disorder (CMS/HCC); Osteopenia of multiple sites; Primary insomnia; Primary osteoarthritis involving multiple joints; Factor V Leiden (CMS/HCC); Vitamin D deficiency; History of malignant neoplasm of prostate; Morbid obesity (CMS/HCC); BMI 32.0-32.9,adult Start: 07-25-2023 Chart abstracting Annette nettles MD Work Phone: [facility] Start: 05-30-2023 End: 05-30-2023 ambulatory [facility] Start: 05-22-2023 End: 05-22-2023 ambulatory Jevon Last MD Work Phone: Urology Comment on above: Prostate cancer (HCC ) (Primary Dx) Start: 05-22-2023 End: 05-22-2023 Telemedicine consultation with patient Jevon Last MD Work Phone: [facility] Start: 03-05-2023 End: 03-05-2023 ambulatory Preston Tejada Other [facility] [employer] Other Start: 03-05-2023 Office outpatient vi sit 15 minutes Preston Tejada [facility] Start: 10-26-2022 End: 10-26-2022 ambulatory Mark Anthony Real MD Work Phone: Urology Comment on above: Prostate cancer (HCC ) (Primary Dx) Start: 10-26-2022 End: 10-26-2022 Telemedicine consultation with patient Mark Anthony Real MD Work Phone: [facility] Start: 10-03-2022 End: 10-04-2022 ambulatory [...] 03-08-2022 End: 03-08-2022 ambulatory Preston Tejada Other [facility] [employer] Other Start: 03-08-2022 Office outpatient vi sit 15 minutes Preston Tejada [facility] Start: 03-07-2022 End: 03-07-2022 Patient encounter procedure MD Annette Block Work Phone: [facility] [employer] [facility] Start: 02-21-2022 Telephone encounter Mark Anthony garcia MD Work Phone: Urology Comment on above: Appointment Start: 02-15-2022 End: 02-15-2022 ambulatory Annette Callaway II Other [facility] [employer] Other Start: 02-15-2022 Office outpatient ne w 45 minutes Annette Nilton II [facility] Start: 02-15-2022 End: 02-15-2022 Patient encounter procedure MD Annette Block Work Phone: [facility] [employer] [facility] Start: 02-08-2022 End: 02-08-[address] ANNETTE BLOCK Facility:[facility] Start: 01-19-2022 End: 01-20-[address] ANNETTE BLOCK Facility:[facility] Start: 11-23-2021 End: 11-23-2021 ambulatory Hugo Garcia MD Work Phone: Urology Comment on above: Prostate cancer (HCC ) Start: 11-23-2021 End: 11-23-2021 Telemedicine consultation with patient Hugo Garcia MD Work Phone: [facility] Start: 11-06-2021 End: 11-07-2021 ambulatory RON MCCORMICK Facility:[facility] Start: 11-02-2021 End: 11-03-2021 ambulatory RON MCCORMICK Facility:[facility] Start: 10-27-2021 End: 10-27-2021 Subsequent hospital visit by physician Mri 6 Radio Main Q (I-Stat/1.5t/3t) Work Phone: MRI Q Comment on above: Malignant neoplasm o f prostate (HCC) [C61] Start: 10-11-2021 End: 10-12-[address] DOCTOR REVELES Facility:[facility] Start: 11-18-2020 End: 11-19-2020 ambulatory ANNETTE BLOCK Facility:[facility] Start: 06-10-2018 Patient encounter procedure Erin H orn Facility:[facility] Start: 02-06-2017 Ambulatory [facility] Facility:[id number] Start: 02-06-2017 Ambulatory Facility:[id number] Procedures Date Procedure Procedure Detail Performing Clinician Start: 01-20-2025 XR FOOT 3V AP/LAT/OB L RT Generic External Data Provider Start: 08-14-2024 [facility] URINALYSIS, WIT H MICROSCOPIC Generic External Data Provider Start: 07-22-2024 Radiologic examinati on knee 1/2 views Jr. Yeiim Cardenas DO Work Phone: Start: 05-23-2024 MHPT [...] 3d rendering w/interp&postproc diff work station Jevon Last MD Work Phone: Start: 11-22-2023 Mri pelvis w/o & w/contrast material Jevon Last MD Work Phone: Start: 10-03-[address] ANNETTE BLOCK Comment on above: Performed By: #### P SAD #### [facility] [address] [place] [id number] Chari Lantigua Start: 04-12-2022 Level iv surg pathol ogy gross&microscopic exam Hugo Garcia MD Work Phone: Start: 04-12-2022 Us transrct prstate vol brachytx plnning spx Hugo Garcia MD Work Phone: Start: 04-12-2022 Urnls dip stick/tabl et rgnt auto w/o microscopy Hugo Garcia MD Work Phone: Start: 04-11-[address] ANNETTE BLOCK Comment on above: Performed By: #### P SAD #### [facility] [address] [place], [place] [id number] Dr. Chari Lantigua Start: 03-07-2022 X-ray of [...] History of right knee joint replacement Adalberto Lyn NP Work Phone: Plan of Treatment Date Care Activity Detail Author Start: 02-04-2028 Urine microalbumin profile DTaP,Tdap,Td Vaccine (2 - Td or Tdap) [facility] Start: 10-04-2027 PROSTATE CANCER SCREENING DISCUSSION PROSTATE CANCER SCREENING DISCUSSION [facility] Start: 10-04-2027 Prostate specific antigen measurement Prostate Cancer Screening Discussion [facility] Start: 04-15-2027 Screening for malignant neoplasm of colon [facility] Start: 01-28-2026 Glaucoma screening Diabetes: Retinopathy Screening [facility] Start: 07-21-2025 Diabetes Screening Diabetes Screening [facility] Start: 07-21-2025 End: 07-21-2025 Patient encounter procedure [facility] Start: 02-23-2025 End: 02-23-2025 Patient encounter procedure [facility] Start: 02-22-2025 Influenza vaccination Influenza Vaccine (#1) [facility] Start: 02-15-2025 End: 08-18-2025 25-hydroxyvitamin D3 [Mass/volume] in Serum or Plasma Vitamin D 25 hydroxy Total Lab Routine Vitamin D deficiency Expected: 02/15/2025 (Approximate), Expires: 08/18/2025 [facility] Comment on above: Expected: 02/15/2025 (Approximate), Expi res: 08/18/2025 Start: 02-15-2025 End: 08-18-2025 CBC W Auto Differential panel - Blood CBC and differential Lab Routine Pure hypercholesterolemia (CMS/HCC) Expected: 02/15/2025 (Approximate), Expires: 08/18/2025 [facility] Work Phone: Comment on above: Expected: 02/15/2025 (Approximate), Expi res: 08/18/2025 Start: 02-15-2025 End: 08-18-2025 Comprehensive metabolic 2000 panel - Serum or Plasma Comprehensive metabolic panel Lab Routine Pure hypercholesterolemia (CMS/HCC) Expected: 02/15/2025 (Approximate), Expires: 08/18/2025 [facility] Comment on above: Expected: 02/15/2025 (Approximate), Expi res: 08/18/2025 Start: 02-15-2025 End: 08-18-2025 Lipid 1996 panel - Serum or Plasma Lipid panel Lab Routine Pure hypercholesterolemia (CMS/HCC) Expected: 02/15/2025 (Approximate), Expires: 08/18/2025 [facility] Comment on above: Expected: 02/15/2025 (Approximate), Expi res: 08/18/2025 Start: 02-12-2025 Medicare Annual Wellness (AWV) Medicare Annual Wellness (AWV) [facility] Start: 02-11-2025 End: 02-11-2025 ambulatory 02/11/2025 7:00 AM EDT Treatment [facility] [address] [place] [address] Mary Coffey, PT [facility] Start: 02-09-2025 End: 02-09-2025 ambulatory 02/09/2025 7:00 AM EDT Treatment [facility] [address] [place] [phone] Mary Coffey, PT [facility] Start: 02-04-2025 End: 02-04-2025 ambulatory [facility] Comment on above: Arrived Start: 02-01-2025 End: 02-01-2025 ambulatory 02/01/2025 6:00 PM EDT Evaluation [facility] [address] [place] [phone] Mary Coffey, PT Arrived [facility] Comment on above: Arrived Start: 01-20-2025 End: 01-20-2025 Patient encounter procedure Radiology Comment on above: RIGHT FOOT PAIN Start: 01-20-2025 End: 04-21-2025 Prostate specific Ag [Mass/volume] in Serum or Plasma PROSTATE-SPECIFIC ANTIGEN DIAGNOSTIC Lab Routine Prostate cancer (HCC) Expected: 01/20/2025 (Approximate), Expires: 04/21/2025 [facility] Work Phone: Comment on above: Expected: 01/20/2025 (Approximate), Expi res: 04/21/2025 Start: 08-18-2024 End: 08-18-2024 Patient encounter procedure 08/18/2024 9:15 AM EST Office Visit [facility] [address] [place] [address] Annette Block MD [address] [place] [address] [facility] Start: 08-15-2024 End: 02-12-2025 Basic metabolic 1998 panel - Serum or Plasma Basic metabolic panel Lab Routine Essential hypertension (CMS/HCC) Expected: 08/15/2024 (Approximate), Expires: 02/12/2025 [facility] Work Phone: Comment on above: Expected: 08/15/2024 (Approximate), Expi res: 02/12/2025 Start: 08-15-2024 End: 02-12-2025 Hemoglobin a1c with eag Hemoglobin a1c with eag Lab Routine Prediabetes Expected: 08/15/2024 (Approximate), Expires: 02/12/2025 [facility] Comment on above: Expected: 08/15/2024 (Approximate), Expi res: 02/12/2025 Start: 08-15-2024 End: 02-12-2025 Microalbumin/Creatinine panel in random Urine Microalbumin / creatinine urine ratio Lab Routine Essential hypertension (CMS/HCC) Expected: 08/15/2024 (Approximate), Expires: 02/12/2025 [facility] Comment on above: Expected: 08/15/2024 (Approximate), Expi res: 02/12/2025 Start: 08-15-2024 End: 02-12-2025 Urinalysis complete panel - Urine Urinalysis with microscopic Lab Routine Essential hypertension (CMS/HCC) Expected: 08/15/2024, Expires: 02/12/2025 [facility] Comment on above: Expected: 08/15/2024, Expires: Start: 07-30-2024 Urine screening for protein Diabetes: Urine Protein Screening [facility] Start: 07-22-2024 End: 07-22-2024 Patient encounter procedure [facility] Comment on above: History of right knee joint replacement (Primary Dx); Acute pain of right knee; Strain of right shoulder, initial encounter Start: 07-20-2024 End: 07-20-2024 Patient encounter procedure [facility] Start: 06-24-2024 Advance Directive Discussion Advance Directive Discussion [facility] Start: 04-24-2024 End: 04-24-2024 Patient encounter procedure 04/24/2024 9:00 AM EDT Office Visit [facility] [address] [place] [phone] Jr. Yeimi Cardenas, DO [address] [facility] [address] [place] [address] [facility] Start: 04-22-2024 End: 04-22-2024 Patient encounter procedure 04/22/2024 8:00 AM EDT [facility] [address] [place] [address] Jr. Yeimi Cardenas, DO [address] [place] [address] Arrived [facility] Comment on above: Arrived Start: 04-10-2024 End: 04-10-2025 MR Shoulder - right WO contrast MR shoulder right wo IV contrast Imaging Routine Internal derangement of right shoulder Expected: 04/10/2024 (Approximate), Expires: 04/10/2025 [facility] Work Phone: Comment on above: Expected: 04/10/2024 (Approximate), Expi res: 04/10/2025 Start: 04-10-2024 End: 04-10-2024 Patient encounter procedure 04/10/2024 11:00 AM EDT [facility] [address] [place] [address] Jr. Yeimi Cardenas, DO [address] [place] [address] Acute pain of right shoulder [facility] Comment on above: Acute pain of right shoulder Start: 02-23-2024 Influenza vaccination Influenza Vaccine (#1) [facility] Start: 02-13-2024 End: 02-13-2024 Patient encounter procedure [facility] Start: 01-29-2024 End: 07-31-2024 25-hydroxyvitamin D3 [Mass/volume] in Serum or Plasma Vitamin D 25 hydroxy Lab Routine Vitamin D deficiency Expected: 01/29/2024 (Approximate), Expires: 07/31/2024 [facility] Comment on above: Expected: 01/29/2024 (Approximate), Expi res: 07/31/2024 Start: 01-29-2024 End: 07-31-2024 CBC W Auto Differential panel - Blood CBC and differential Lab Routine Essential (primary) hypertension (CMS/HCC) Expected: 01/29/2024 (Approximate), Expires: 07/31/2024 [facility] Work Phone: Comment on above: Expected: 01/29/2024 (Approximate), Expi res: 07/31/2024 Start: 01-29-2024 End: 01-29-2024 Comprehensive metabolic 2000 panel - Serum or Plasma Comprehensive metabolic panel Lab Routine Essential (primary) hypertension (CMS/HCC) Expected: 01/29/2024 (Approximate), Expires: 01/29/2024 [facility] Comment on above: Expected: 01/29/2024 (Approximate), Expi res: 01/29/2024 Start: 01-29-2024 End: 07-31-2024 Lipid 1996 panel - Serum or Plasma Lipid panel Lab Routine Pure hypercholesterolemia (CMS/HCC) Expected: 01/29/2024 (Approximate), Expires: 07/31/2024 [facility] Comment on above: Expected: 01/29/2024 (Approximate), Expi res: 07/31/2024 Start: 01-24-2024 Medicare Annual Wellness (AWV) Medicare Annual Wellness (AWV) [facility] Start: 01-17-2024 DIABETES SCREEN DIABETES SCREEN [facility] Start: 01-17-2024 Diabetes Screening Diabetes Screening [facility] Start: 11-29-2023 End: 11-29-2023 ambulatory 11/29/2023 12:00 PM EDT Results Only [place] [address] [address] [place] [address] PSA/PROSTSPECAG DIAG [place] [address] [address] Comment on above: PSA/PROSTSPECAG DIAG Start: 11-20-2023 End: 06-20-2024 MRI PROSTATE WO/W IVCON MRI PROSTATE WO/W IVCON Radiology Routine Prostate cancer (HCC) Expected: 11/20/2023, Expires: 06/20/2024 [facility] Work Phone: Comment on above: Expected: 11/20/2023, Expires: Start: 11-20-2023 End: 02-19-2024 Prostate specific Ag [Mass/volume] in Serum or Plasma PSA/PROSTSPECAG DIAG Lab Routine Prostate cancer (HCC) Expected: 11/20/2023, Expires: 02/19/2024 [facility] Work Phone: Comment on above: Expected: 11/20/2023, Expires: Start: 08-15-2023 Covid-19 Vaccine () Covid-19 Vaccine () [facility] Start: 07-31-2023 End: 07-31-2023 Patient encounter procedure 07/31/2023 9:15 AM EST Office Visit [facility] [address] [place] [phone] Annette Block MD [address] [place] [address] Essential (primary) hypertension (CMS/HCC) (Primary Dx); Pure hypercholesterolemia (CMS/HCC); Prediabetes; 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 (CMS/HCC); Gastroesophageal reflux disease without esophagitis; Generalized anxiety disorder (CMS/HCC); Osteopenia of multiple sites; Primary insomnia; Primary osteoarthritis involving multiple joints; Factor V Leiden (CMS/HCC); Vitamin D deficiency; History of malignant neoplasm of prostate; Morbid obesity (CMS/HCC) [facility] Comment on above: Essential (primary) hypertension (CMS/HC C) (Primary Dx); Pure hypercholesterolemia (CMS/HCC); Prediabetes; 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 Start: 06-24-2023 Advance Directive Discussion Advance Directive Discussion [facility] Start: 06-24-2023 Behavioral Health Screening Behavioral Health Screening [facility] Start: 04-28-2023 End: 10-27-2023 Prostate specific Ag [Mass/volume] in Serum or Plasma PSA/PROSTSPECAG DIAG Lab Routine Prostate cancer (HCC) Expected: 04/28/2023, Expires: 10/27/2023 [facility] Work Phone: Comment on above: Expected: 04/28/2023, Expires: 4 Start: 03-24-2023 Medicare Annual Wellness Visit Medicare Annual Wellness Visit [facility] Start: 10-19-2022 Hemoglobin A1c measurement Diabetes: Hemoglobin A1C [facility] Start: 10-19-2022 End: 12-19-2022 Prostate specific Ag [Mass/volume] in Serum or Plasma PSA/PROSTSPECAG DIAG Lab Routine Prostate cancer (HCC) Expected: 10/19/2022, Expires: 12/19/2022 [facility] Work Phone: Comment on above: Expected: 10/19/2022, Expires: 3 Start: 06-24-2022 ADVANCE DIRECTIVE DISCUSSION ADVANCE DIRECTIVE DISCUSSION [facility] Start: 06-24-2022 DEPRESSION ASSESSMENT DEPRESSION ASSESSMENT [facility] Start: 04-10-2022 End: 03-18-2023 Prostate specific Ag [Mass/volume] in Serum or Plasma PSA/PROSTSPECAG DIAG Lab Routine Prostate cancer (HCC) Expected: 04/10/2022 (Approximate), Expires: 03/18/2023 [facility] Work Phone: Comment on above: Expected: 04/10/2022 (Approximate), Expi res: 03/18/2023 Start: 02-22-2022 Influenza vaccination INFLUENZA (#1) [facility] Start: 01-16-2022 Pneumococcal Vaccine: 50+ (2 of 2 - PCV) Pneumococcal Vaccine: 50+ (2 of 2 - PCV) [facility] Start: 01-16-2022 Pneumococcal Vaccine: 65+ (2 - PCV) Pneumococcal Vaccine: 65+ (2 - PCV) [facility] Start: 01-16-2022 Pneumococcal Vaccine: 65+ (2 of 2 - PCV) Pneumococcal Vaccine: 65+ (2 of 2 - PCV) [facility] Start: 01-16-2022 Pneumococcal Vaccine: 65+ Years (2 - PCV) Pneumococcal Vaccine: 65+ Years (2 - PCV) [facility] Start: 01-16-2022 Pneumococcal Vaccine: 65+ Years (2 of 2 - PCV) Pneumococcal Vaccine: 65+ Years (2 of 2 - PCV) [facility] Start: 06-24-2021 ADVANCE DIRECTIVE DISCUSSION ADVANCE DIRECTIVE DISCUSSION [facility] Start: 06-24-2021 DEPRESSION ASSESSMENT DEPRESSION ASSESSMENT [facility] Start: 06-10-2021 COVID-19 VACCINE (5 - Booster for Moderna series) COVID-19 VACCINE (5 - Booster for Moderna series) [facility] Start: 2021 Glaucoma screening Diabetes: Retinopathy Screening [facility] Start: 2020 PNEUMOCOCCAL: 65+ (1 - PCV) PNEUMOCOCCAL: 65+ (1 - PCV) [facility] Start: 2020 PNEUMOVAX AGE 65 AND OVER WITH 5YR LOOKBACK (#1) PNEUMOVAX AGE 65 AND OVER WITH 5YR LOOKBACK (#1) [facility] Start: 04-15-2018 Screening for malignant neoplasm of colon [facility] Start: 2015 RSV Vaccine (1 - 1-dose 60+ series) RSV Vaccine (1 - 1-dose 60+ series) [facility] Start: 2010 PROSTATE CANCER SCREENING DISCUSSION PROSTATE CANCER SCREENING DISCUSSION [facility] Start: 2005 SHINGRIX VACCINE (1 of 2) SHINGRIX VACCINE (1 of 2) [facility] Start: 01-23-2003 Diabetes Screening Diabetes Screening [facility] Start: 2000 COLOGUARD (FIT-DNA) COLOGUARD (FIT-DNA) [facility] Start: 2000 Colonoscopy COLONOSCOPY [facility] Start: 2000 COLORECTAL CANCER SCREENING COLORECTAL CANCER SCREENING [facility] Start: [address] COLONOGRAPHY [facility] Start: 2000 FECAL OCCULT BLOOD FECAL OCCULT BLOOD [facility] Start: 2000 Screening for malignant neoplasm of colon [facility] Start: 2000 SIGMOIDOSCOPY SIGMOIDOSCOPY [facility] Start: 1990 Lipid 1996 panel - Serum or Plasma Lipid Screening [facility] Start: 1990 Lipid panel Lipid Screening [facility] Start: 1990 LIPID SCREEN LIPID SCREEN [facility] Start: 1974 SHINGRIX VACCINE (1 of 2) SHINGRIX VACCINE (1 of 2) [facility] Start: 1974 Urine microalbumin profile DTAP,TDAP,TD (1 - Tdap) [facility] Start: 1973 Anxiety Screening Anxiety Screening [facility] Start: 1973 Depression Screening Depression Screening [facility] Start: 1973 HEPATITIS C SCREENING HEPATITIS C SCREENING [facility] Start: 1973 Hepatitis C screening Hepatitis C Screening [facility] Start: 1967 Adult depression screening assessment DEPRESSION SCREENING [facility] Start: 1961 PNEUMOCOCCAL: 65+ (1 - PCV) PNEUMOCOCCAL: 65+ (1 - PCV) [facility] Start: 1955 Screening for malignant neoplasm of colon [facility] [employer] DXA Skeletal system Views for bone density DEXA bone density Imaging Routine Osteopenia of multiple sites Ordered: 02/13/2024 [facility] [employer] Comment on above: Ordered: 02/13/2024 End: 06-20-2024 MRI 3D POST PROCESSING MRI 3D POST PROCESSING Radiology Routine Prostate cancer (HCC) 1 Occurrences starting 05/22/2023 until 06/20/2024 [facility] Work Phone: Comment on above: 1 Occurrences starting 05/22/2023 until 06/20/2024 End: 11-21-2024 Prostate specific Ag [Mass/volume] in Serum or Plasma PROSTATE-SPECIFIC ANTIGEN DIAGNOSTIC Lab Routine Prostate cancer (HCC) Every 6 months for 3 Occurrences starting 11/22/2023 until 11/21/2024 [facility] Work Phone: Comment on above: Every 6 months for 3 Occurrences startin g 11/22/2023 until 11/21/2024 XR Chest 2 Views XR chest 2 view s Imaging Routine Acute cough Bronchitis Decreased breath sounds at right lung base 07/01/2024 10:27 AM EST [facility] [employer] Work Phone: End: 02-18-2026 XR Foot - right AP and Lateral and oblique XR FOOT GENERAL 3V AP/LAT/OBL RIGHT Radiology Routine Pain in right foot 1 Occurrences starting 01/19/2025 until 02/18/2026 [facility] Work Phone: Comment on above: 1 Occurrences starting 01/19/2025 until 02/18/2026 XR Foot - right AP a nd Lateral and oblique XR FOOT GENERAL 3V AP/LAT/OBL RIGHT Radiology Routine Pain in right foot 01/20/2025 2:09 PM EDT [facility] Work Phone: [facility] Immunizations Immunization Date Immunization Notes Care Provider Jamila banegas 04-08-2024 Seasonal trivalent influenza vaccine, adjuvanted, preservative free Jr. Stepanic DO Work Phone: [facility] 04-08-2024 influenza virus vacc ine, unspecified formulation Jr. Stepanic DO Work Phone: [facility] 05-26-2023 RSV, recombinant, pr otein subunit RSVpreF, adjuvant reconstitu, 120mcg/0.5mL, PF (Arexvy) Annette Block MD Work Phone: [facility] 04-14-2023 Influenza, Seasonal, Quadrivalent, Adjuvanted Annette Block MD Work Phone: [facility] 04-14-2023 SARS-COV-2 (COVID-19 ) vaccine, mRNA, spike protein, LNP, PF, wellington-sucrose, 30 mcg/0.3 mL Annette Block MD Work Phone: [facility] 04-14-2023 influenza virus vacc ine, unspecified formulation Generic Provider [facility] 04-14-2022 Influenza, Seasonal, Quadrivalent, Adjuvanted Annette Block MD Work Phone: [facility] 06-04-2021 zoster vaccine recombinant Adrian Block MD Work Phone: [facility] 04-02-2021 Influenza, Seasonal, Quadrivalent, Adjuvanted Annette Block MD Work Phone: [facility] 04-02-2021 zoster vaccine recombinant Adrian Block MD Work Phone: [facility] 03-28-2021 SARS-CoV-2, Unspecified Walt Block MD Work Phone: [facility] 01-16-2021 pneumococcal polysaccharide vaccine, 23 valent Annette Block MD Work Phone: [facility] 09-14-2020 SARS-CoV-2, Unspecified Jr. Stepanic DO Work Phone: [facility] 08-18-2020 SARS-CoV-2, Unspecified Jr. Stepanic DO Work Phone: [facility] 03-22-2020 influenza, injectabl e, quadrivalent, preservative free Annette Block MD Work Phone: [facility] 05-25-2019 influenza, injectabl e, quadrivalent, preservative free Annette Block MD Work Phone: [facility] 03-24-2018 influenza, seasonal, injectable, preservative free Jr. Stepanic DO Work Phone: [facility] 03-17-2018 influenza, injectabl e, quadrivalent, preservative free Annette Block MD Work Phone: [facility] 02-03-2018 tetanus toxoid, redu umang diphtheria toxoid, and acellular pertussis vaccine, adsorbed Annetet Block MD Work Phone: [facility] 01-02-2017 zoster vaccine, live Annette Block MD Work Phone: [facility] 05-19-2016 influenza, seasonal, injectable, preservative free Jr. Stepanic DO Work Phone: [facility] Payers Date Payer Category Payer Medicare [id number] 2023 Private Health Insurance [id number] 2023 Medicare [id number] 2023 Unknown [id number] 2022 Unknown [id number] 2019 Unknown [id number] 2019 Unknown MMO MMO SUPERMED PLUS [id number] 2019-Present [phone] [address] [place] [address] PPO [id number] 2019 Unknown [id number] 2018 Self-pay 2018 Unknown [id number] 1955 Unknown [id number] 2.16.840.1.764543.3.579.2.6 47 1955 Unknown [id number] 2.16.840.1.769480.3.579.2.5 93 1955 Unknown [id number] 2.16.840.1.767285.3.579.2.5 93 1955 Unknown [id number] 2.16.840.1.415862.3.579.2.5 93 1955 Unknown [id number] 2.16.840.1.811182.3.579.2.5 93 1955 Unknown [id number] 2.16.840.1.485359.3.579.2.5 93 1955 Unknown [id number] 2.16.840.1.580715.3.579.2.5 93 1955 Unknown [id number] 2.16.840.1.764298.3.579.2.5 93 1955 Unknown [id number] 2.16.840.1.082873.3.579.2.5 93 1955 Unknown [id number] 2.16.840.1.304585.3.579.2.5 93 1955 Unknown [id number] 2.16.840.1.101754.3.579.2.1 259 1955 Unknown [id number] 2.16.840.1.336855.3.579.2.1 259 1955 Unknown [id number] 2.16.840.1.511055.3.579.2.1 259 1955 Unknown [id number] 2.16.840.1.829326.3.579.2.1 259 1955 Unknown [id number] 2.16.840.1.108062.3.579.2.1 259 1955 Unknown [id number] 2.16.840.1.808423.3.579.2.1 259 1955 Unknown [id number] 2.16.840.1.366097.3.579.2.1 259 1955 Unknown [id number] 2.16.840.1.096523.3.579.2.1 259 1955 Unknown [id number] 2.16.840.1.670680.3.579.2.1 259 1955 Unknown [id number] 2.16.840.1.971196.3.579.2.1 259 1955 Unknown [id number] 2.16.840.1.264836.3.579.2.1 259 1955 Unknown [id number] 2.16.840.1.614796.3.579.2.1 259 1955 Unknown [id number] 2.16.840.1.322750.3.579.2.1 259 1955 Unknown [id number] 2.16.840.1.872737.3.579.2.1 259 Unknown [id number] 2.16.840.1.854478.3.579.2.4 62 Unknown [id number] 2.16.840.1.818381.3.579.2.5 31 Social History Date Type Detail Facility Tobacco smoking status HIIS Tobacco smoking consumption unknown [facility] Work Phone: Start: 1955 Sex Assigned At Male [facility] Start: 10-17-2021 End: 04-12-2022 Exposure to SARS-CoV-2 (event) Not sure [facility] Start: 10-26-2022 End: 02-12-[address] [facility] Start: 04-07-2020 End: 11-20-2022 Tobacco smoking status NHIS Never smoked tobacco (finding) [facility] Start: 10-26-2022 End: 02-12-2024 History of [address] function [facility] National Score (1-100), lower number is lower risk 62 [facility] Start: 09-03-2021 Gender identity Identifies as male gender (finding) [facility] Start: 11-20-2022 Tobacco use and exposure Smokeless tobacco non-user [facility] Start: 07-25-2023 End: 08-22-2024 Alcohol intake Current drinker of alcohol (finding) [facility] Start: 01-23-2023 Alcohol Comment Caffeine: [address] [facility] Start: 1955 Sex Assigned At Not on file [facility] Medical Equipment Procedure Code Equipment Code Equipment Origin al Text Equipment Identifier Dates Arthroplasty, knee, total, minimally invasive ART SURF RT 10MM 10-12 GH FDA Start: 04-07-2020 Arthroplasty, knee, total, minimally invasive Orthopaedic cement, non-medicated [id number] FDA Start: 04-07-2020 Arthroplasty, knee, total, minimally invasive Uncoated knee femur prosthesis [id number] FDA Start: 04-07-2020 Arthroplasty, knee, total, minimally invasive Uncoated knee tibia prosthesis, metallic [id number] FDA Start: 04-07-2020 Arthroplasty, knee, total, minimally invasive Polyethylene patella prosthesis ()[id number] FDA Start: 04-07-2020 Arthroplasty, knee, total, minimally [...] FDA Start: 04-02-2018 Clinical Notes 10-27-2021 to 02-04-2025 Mary Coffey, PT - 02/04/2025 7:00 AM Javon Coffey, PT - 02/01/2025 6:00 PM Bob Calderón MD - 01/20/2025 2:58 PM Maisha Raza RT(R) - 01/20/2025 2:15 PM EDT Note Date & Type Note Facility 02-04-2025 History of Present illness Narrative Images from the original note were not included. Physical Therapy Physical Therapy Treatment Visit Patient Name: Marco Antonio Benitez Today's Date: 02/04/2025 Reason: R Peroneal Tendonitis Visit number: 2 Supervised time: 47' Total time: 47' Precautions: R Peroneal Tendonitis Subjective: Pain: -08/31 Overall progress: Compliant with HEP. Continues to have sharp pain in lateral foot when stepping on uneven surfaces without shoes. Treatment: Manual: x9' STM to base of 5th metatarsal and along distal peroneal tendons, ankle PROM all directions as tolerated Therapeutic Exercise: x38' supervised per exercise grid including foot intrinsics, ankle flexibility and strengthening Modalities: declined Assessment: No pain reported with therex. Challenged with correct technique with foot intrinsics. Incorporated SL balance to improve ankle stability and practice navigating uneven surfaces without shoes as this is when patient experiences sharp pain. No pain reported with SL balance. Continue to progress as tolerated. Plan Continue PT per POC. I hereby deem this POC medically necessary. Please sign below. ___ Date: documented in this encounter [facility] 02-01-2025 History of Present illness Narrative Images from the original note were not included. Physical Therapy Physical Therapy Evaluation Visit Patient Name: Marco Antonio Benitez Today's Date: 02/01/2025 Reason: R Peroneal Tendonitis Visit number: 1 Subjective: Interim History: Pt is a 69 yo male who presents who R foot pain. This pain began after fracturing his R 2nd-5th metatarsals and navicular in 2016. He had an ORIF done in 2016 6 months after his initial injury. .He now has new pain on the outside of his foot that is exacerbated when he is walking bare feet on uneven surfaces. He takes OTC pain medication PRN which helps to alleviate his pain. He started wearing an ASO on 01/20/25 which he believes has helped with his pain. Pain: -12/01 Imaging: XR of bilateral feet with posttraumatic mid/forefoot changes, no obvious hardware complications, malunion of 4th and 5th MT bases. 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 Precautions: hx of fractures and ORIF to R foot Objective: ANKLE AROM: PF- 30 degrees DF- 5 degrees Eversion- 20 degrees Inversion- 30 degrees PROM: PF- 40 degrees DF- 12 degrees Eversion- 25 degrees Inversion- 37 degrees Joint play: Mod restrictions noted with talocrural and subtalar joints Strength: 5/5 globally Muscle length: Decreased R Gastroc length Palpation: TTP base of 5th Metatarsal Special Test: Single leg HR- unable to complete >3 reps without increase in pain Functional: Decreased stance time on R LE during stance phase Treatment: Education: HEP education with demonstration, Educated on Eval Findings and POC Manual Therapy: Passive ROM, Joint mobilization, Soft Tissue Mobilization, Myofascial Cupping, Dry Needling, and IASTM Therapeutic Exercise: Strength, Endurance, Flexibility, ROM, and HEP Therapeutic Activity: Exercises to improve dynamic activities, functional tasks, functional mobility to return to prior activity level Gait Training: as needed Aquatic Therapy: as needed Neuromuscular re-education: Balance Training, Muscle Facilitation, and Dynamic Stability Modalities: Heat, Ice, and Electrical Stimulation Today: I.E.; x12; therex for ankle/foot strengthening and flexibility and foot intrinsics; x8' MT including STM to distal peroneal tendon and base of 5th metatarsal; edu on impairments, HEP, and POC Assessment: Outcome Measure: Patient will bring in complete at follow-up session. Goal 1: Patient will be <20% impaired according to LEFS to demonstrate improved function in 4-6 weeks. Goal 2: Patient will report 0/10 tenderness along distal peroneal tendons to demonstrate decreased inflammation in 4-6 weeks. Goal 3: Patient will be able to complete 20 repetitions of single leg heel raise to demonstrate increased strength in 4-6 weeks. Goal 4: Patient will be able to walk with and without shoes around home with 0/10 pain in 4-6 weeks, Pt will benefit from skilled PT to address the above impairments for 1-2x/week for 4-6 weeks. I hereby deem this POC medically necessary. Please sign below. __ Date: documented in this encounter [facility] 01-20-2025 Note HNO ID: [id number] Author: BOB JIM MD Service: ? Author Type: Physician Type: Progress Notes Filed: 01/20/2025 15:41 Note Text: [facility] - New Patient Visit Consultation requested by No referring provider defined for this encounter. for an opinion regarding Mr. Marco Antonio Benitez, and my final recommendations will be communicated back to the requesting physician by way of shared medical record or letter via [place] mail. CHIEF COMPLAINT: Right midfoot arthritis HISTORY OF PRESENT ILLNESS: Marco Antonio Benitez is a 69 year old male who presents today with x1yr right lateral foot pain. 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 He has sharp pain with activity up to 10/10. He takes PO Voltaren prn, which moderately controls the pain. 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 Location of Pain: right foot The pain is present 8/10 The pain is a 8/10 at its best, and 10/10 at its worst. They denies nocturnal pain. The pain is exacerbated by walking. The pain is improved with rest and activity modification. They report Pain. Treatments Tried: Ice: no NSAIDs: yes Brace: yes Injections: none Physical Therapy: none Surgeries: yes Occupation: retired Activities: walking Smoking: none Personal or Family Hx of DVT/PE: yes Diabetic: none Last Hgba1c: Hemoglobin A1C (%) Date Value 01/24/2000 5.2 PHYSICAL EXAMINATION: General: no acute distress HENT: head normocephalic, mouth mucous membranes are moist. Eyes: extraocular movements intact, pupils are equal, round, and reactive to light. Cardiovascular: normal pulses Pulmonary: normal work of breathing on room air Skin: capillary refill takes less than 2 seconds Neurological: AOx4, follows commands Musculoskeletal: Right lower extremity Inspection: Incisions CDI from remote surgery, forefoot adductus alignment Palpation: TTP over midfoot, especially over prominent base of 5th MT ROM: Maintained Neuro: sensation intact in the superficial peroneal, deep peroneal, tibial, sural, and saphenous nerve distributions Vascular: DP pulse present, 2+ Pain with heel raise, arch maintained bilaterally Compartments: compartments of leg are soft and compressible IMAGING: XR of bilateral feet with posttraumatic mid/forefoot changes, no obvious hardware complications, malunion of 4th and 5th MT bases. ASSESSMENT I reviewed the imaging studies, physical exam findings, and clinical course with the patient today. Right midfoot arthritis PLAN: - Recommend activity modification in soft soled shoes - Voltaren gel prn and PO tylenol/NSAIDs - PT referral provided Follow up: 6-8 weeks Imaging needed: Yes, bl feet Thank you for the opportunity to participate in this patient's care. Bob Jim MD Medical Decision Making [facility] 01-20-2025 History of Present illness Narrative [facility] - New Patient Visit Consultation requested by No referring provider defined for this encounter. for an opinion regarding Mr. Marco Antonio Benitez, and my final recommendations will be communicated back to the requesting physician by way of shared medical record or letter via [place] mail. CHIEF COMPLAINT: Right midfoot arthritis HISTORY OF PRESENT ILLNESS: Marco Antonio Benitez is a 69 year old male who presents today with x1yr right lateral foot pain. 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 He has sharp pain with activity up to 10/10. He takes PO Voltaren prn, which moderately controls the pain. 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 Location of Pain: right foot The pain is present 8/10 The pain is a 8/10 at its best, and 10/10 at its worst. They denies nocturnal pain. The pain is exacerbated by walking. The pain is improved with rest and activity modification. They report Pain. Treatments Tried: Ice: no NSAIDs: yes Brace: yes Injections: none Physical Therapy: none Surgeries: yes Occupation: retired Activities: walking Smoking: none Personal or Family Hx of DVT/PE: yes Diabetic: none Last Hgba1c: Hemoglobin A1C (%) Date Value 01/24/2000 5.2 PHYSICAL EXAMINATION: General: no acute distress HENT: head normocephalic, mouth mucous membranes are moist. Eyes: extraocular movements intact, pupils are equal, round, and reactive to light. Cardiovascular: normal pulses Pulmonary: normal work of breathing on room air Skin: capillary refill takes less than 2 seconds Neurological: AOx4, follows commands Musculoskeletal: Right lower extremity Inspection: Incisions CDI from remote surgery, forefoot adductus alignment Palpation: TTP over midfoot, especially over prominent base of 5th MT ROM: Maintained Neuro: sensation intact in the superficial peroneal, deep peroneal, tibial, sural, and saphenous nerve distributions Vascular: DP pulse present, 2+ Pain with heel raise, arch maintained bilaterally Compartments: compartments of leg are soft and compressible IMAGING: XR of bilateral feet with posttraumatic mid/forefoot changes, no obvious hardware complications, malunion of 4th and 5th MT bases. ASSESSMENT I reviewed the imaging studies, physical exam findings, and clinical course with the patient today. Right midfoot arthritis PLAN: - Recommend activity modification in soft soled shoes - Voltaren gel prn and PO tylenol/NSAIDs - PT referral provided Follow up: 6-8 weeks Imaging needed: Yes, bl feet Thank you for the opportunity to participate in this patient's care. Bob Jim MD Medical Decision Making documented in this encounter [facility] 01-20-2025 History of Present illness Narrative Radiology Service Progress Note PATIENT NAME: Marco Antonio Benitez DATE OF SERVICE: January 20, 2025 TIME: 2:04 PM PATIENT IDENTITY VERIFICATION COMPLETED USING TWO (2) IDENTIFIERS: Name and Date of confirmed by patient verbally. FALL SCREENING: Has the patient had 2 falls in the last year or 1 fall with injury or currently using an Ambulatory Assistive Device (Walker, Cane, Wheelchair, Crutches, etc.)? No PATIENT GENDER DATA: Assigned male at PATIENT RELEVANT IMPLANT DATA REVIEWED: Not Applicable PATIENT PRESENTS WITH AN IMPLANTABLE OR ATTACHED RAILWAYS ASSISTANT: No RADIOLOGY DEPARTMENT: General X-ray: Exam(s) Completed: Lower Extremity X-Ray(s): Feet, Right and Wt. Bearing PERIPHERAL IV DATA: Not applicable SIGNED BY: RT Toribio(R) January 20, 2025 2:04 PM documented in this encounter [facility] 01-20-2025 Note HNO ID: [id number] Author: MAISHA TATE RT(Adrian) Service: Radiology Author Type: Technologist Type: Progress Notes Filed: 01/20/2025 14:07 Note Text: Radiology Service Progress Note PATIENT NAME: Marco Antonio Benitez DATE OF SERVICE: January 20, 2025 TIME: 2:04 PM PATIENT IDENTITY VERIFICATION COMPLETED USING TWO (2) IDENTIFIERS: Name and Date of confirmed by patient verbally. FALL SCREENING: Has the patient had 2 falls in the last year or 1 fall with injury or currently using an Ambulatory Assistive Device (Walker, Cane, Wheelchair, Crutches, etc.)? No PATIENT GENDER DATA: Assigned male at PATIENT RELEVANT IMPLANT DATA REVIEWED: Not Applicable PATIENT PRESENTS WITH AN IMPLANTABLE OR ATTACHED RAILWAYS ASSISTANT: No RADIOLOGY DEPARTMENT: General X-ray: Exam(s) Completed: Lower Extremity X-Ray(s): Feet, Right and Wt. Bearing PERIPHERAL IV DATA: Not applicable SIGNED BY: RT Toribio(R) January 20, 2025 2:04 PM [facility] 11-20-2024 History of Present illness Narrative Images from the original note were not included. [address] , [address] [facility] [place], [address] P: [phone] F: [phone] HPI Historian of HPI: patient Marco Antonio Benitez is a 69 y.o. male who presents today to the Urgent Care with the following complaints and denials which have been present for 4 day(s) Pt c/o deep cough and chest congestion. C/O Denies Symptom Comments [] [x] Runny Nose [] [x] Difficulty Swallowing [] [x] Sore Throat [x] [] Cough [] [x] Ear Pain [] [x] Fever [] [x] Chills [x] [] Nasal Congestion [] [x] Myalgia [] [x] Sinus Pain [] [x] Sinus Pressure Additional Comments: pt has not taken any OTC medications ROS A complete system ROS was performed and negative aside from the pertinent positives noted in the HPI and PE. IH Testing: PHYSICAL EXAM Physical Exam Constitutional: Appearance: Normal appearance. HENT: Nose: Congestion present. Mouth/Throat: Pharynx: Posterior oropharyngeal erythema present. No oropharyngeal exudate. Cardiovascular: Rate and Rhythm: Normal rate. Pulmonary: Effort: Pulmonary effort is normal. Breath sounds: No rales. Comments: Coarse air entry and paroxysms of cough. Neurological: Mental Status: He is alert. Psychiatric: Mood and Affect: Mood normal. TREATMENT PLAN Diagnoses and all orders for this visit: Acute bronchitis, unspecified organism (Primary) - azithromycin (Zithromax) 250 MG tablet; Z-Pack. Take 2 tablets on day 1, and one tablet per day on days 2-5. Take medications as prescribed. Use a humidifier when possible. May use acetaminophen or ibuprofen for pain or fever. RTO if worsening. documented in this encounter [facility] 08-21-2024 Telephone encounter Note Hi, I am calling for Marco Antonio Benitez. Date of , [birth year], he had just seen Dr. Block, and the nurse had asked him about a refill on the guaifenesin-codeine cough syrup, and he actually thought he had a refill on it. He does not if he could get a refill of that, if it could go to [facility], I appreciate it. Marco Antonio's date of is 55 and phone number. You can reach me at [phone], if there is any question. Thanks, brisa. -Copied from [facility] Okay to refill? [facility] 08-21-2024 Miscellaneous Notes Hi, I am calling for Marco Antonio Benitez. Date of , [birth year]54, he had just seen Dr. Block, and the nurse had asked him about a refill on the guaifenesin-codeine cough syrup, and he actually thought he had a refill on it. He does not if he could get a refill of that, if it could go to [facility] [employer], I appreciate it. Marco Antonio's date of is 55 and phone number. You can reach me at [phone], if there is any question. Thanks, brisa. -Copied from [employer] Okay to refill? documented in this encounter [facility] 08-18-2024 History of Present illness Narrative Images from the original note were not included. Marco Antonio Benitez is a 69 y.o. male presents with chief complaint of 6 Month Follow Up of Chronic Conditions (Review lab drawn 08/14/2024, HbA1c = 5.9) HPI: History of Present Illness Patient presents today for follow up of chronic medical problems. He has been feeling well and denies any acute complaints. He has had no chest pain, SOB. He reports a slight weight gain, with his weight increasing from 206 or 208 to approximately 218 pounds. He has observed a minor increase in his appetite. He is currently on Ozempic 0.5 mg, which he tolerates well without any adverse effects. He is seeking a refill of this medication. I have reviewed and reconciled the history [...] Past Surgical History: Procedure Laterality Date COLONOSCOPY 2010 EGD 04/15/2017 /colonoscopy- normal (internal hemorrhoids) FRACTURE [...] mg, Daily Cholecalciferol (Vitamin D) 50 MCG (1999) capsule 1 capsule, Daily diclofenac (Voltaren) 75 [...] PRN zolpidem (AMBIEN) 5 mg, Nightly PRN ALLERGIES: No Known Allergies PHYSICAL EXAM: Visit Vitals BP 122/70 (BP Location: Left arm, Patient Position: Sitting) Ht 5' 8 BMI 34.52 kg/m Smoking Status Never BSA 2.22 m BP Readings from Last 3 Encounters: 08/18/24 122/70 07/01/24 122/76 02/13/24 128/80 Wt Readings from Last 3 Encounters: 07/01/24 227 lb 02/13/24 222 lb 6.4 oz 07/31/23 216 lb Physical Exam Vitals reviewed. Constitutional: General: He is not in acute distress. Appearance: Normal appearance. Neck: Vascular: No carotid bruit. Cardiovascular: Rate and Rhythm: Normal rate and regular rhythm. Heart sounds: No murmur heard. No friction rub. Pulmonary: Breath sounds: Normal breath sounds. No wheezing or rhonchi. Musculoskeletal: Cervical back: Neck supple. Right lower leg: No edema. Left lower leg: No edema. Lymphadenopathy: Cervical: No cervical adenopathy. Skin: General: Skin is warm and dry. Neurological: Mental Status: He is alert. Results Laboratory Studies Blood sugar is 119. A1c is 5.9. Urine tests are normal. Kidney function is normal. Electrolytes are normal. ASSESSMENT AND PLAN: Assessment & Plan 1. Pure hypercholesterolemia (CMS/HCC) (Primary) Will check labs next visit. - CBC and differential; Future - Comprehensive metabolic panel; Future - Lipid panel; Future - CBC and differential - Comprehensive metabolic panel - Lipid panel 2. 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 (CMS/HCC) Doing well. Denies any anginal symptoms. Continue aggressive risk factor modification. Continue current medications. Call if any problems. 3. Prediabetes Exercise regularly to help increase sensitivity to insulin and help with weight loss. Add weightlifting or resistance training with bands at least 3 days per week. Eat a healthy diet that is high in protein and lower in carbohydrates such as bread and pasta. Avoid or minimize processed foods. 4. Generalized anxiety disorder (CMS/HCC) Doing well. OARRS report was reviewed and there were no concerns. Continue current regimen. 5. Primary insomnia Doing well. Continue current regimen. 6. Vitamin D deficiency Stable. Continue to monitor. - Vitamin D 25 hydroxy Total; Future - Vitamin D 25 hydroxy Total 7. History of malignant neoplasm of prostate Stable. Continue to monitor. 8. Obesity (BMI 30.0-34.9) A prescription for Ozempic 1 mg will be provided, with the potential to increase the dosage to 2 mg if necessary. He is advised to maintain a balanced diet rich in proteins and engage in regular physical activity to prevent muscle mass loss. documented in this encounter [facility] 07-22-2024 History of Present illness Narrative Images from the original note were not included. HISTORY OF PRESENT ILLNESS: EST PT Marco Antonio Benitez is an 69 y.o. @ male. (EST PT) - HERE FOR YEARLY RECHECK OF (R) TKA 04/07/20 (4 YRS, 3 MONTHS, 2 WKS) XRAYS TODAY, 07/22/24 IN EPIC XRAYS 07/15/23 IN CHANGE / EPIC FINISHED PHYSICAL THERAPY ; POST-OP OLD NOTE: DOING WELL. 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 DENIES ANY INSTABILTIY / WEAKNESS. DENIES ANY SWELLING - CONTINUES TO WEAR COMPRESSIONS SOCKS. TYL / ARTHROTEC DAILY. (EST PT) - RECHECK (R) SHOULDER ROM / STRENGTH XRAYS, 04/10/24 IN [facility] MRI, 04/16/24 IN EPIC NO MDP / [...] mg, Daily Cholecalciferol (Vitamin D) 50 MCG (2000 UT) capsule 1 capsule, Daily diclofenac (Voltaren) [...] Stable RT total knee replacement. 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 History of right knee joint replacement Z96.651 2. Acute pain of right knee M25.561 XR knee 1 or 2 views right 3. Strain of right shoulder, initial encounter S46.911A PLAN: I reviewed xray of the right [...] requiring urgent evaluation. documented in this encounter [facility] 07-01-2024 Telephone encounter Note states tessalon perles does not work for him. Requesting Cheratussin RX RX loaded [facility] 07-01-2024 Miscellaneous Notes states tessalon perles does not work for him. Requesting Cheratussin RX RX loaded documented in this encounter [facility] 07-01-2024 History of Present illness Narrative [...] chest 2 views documented in this encounter [facility] 05-25-2024 Note [facility] Cardiology Clinic Note Chief Complaint: Patient [...] history of Coronary artery disease, Diabetes mellitus ([facility]), Factor V Leiden ([facility]), Family history of premature CAD, [...] and systolic f (more content not included)... [facility] 05-11-2024 Telephone encounter Note Spoke with .. [...] dentist from before if needed. Please advise [phone]. documented in this encounter [facility] 05-11-2024 Telephone encounter Note Patient's called regarding his upcoming dentist appointment. Patient already took antibiotic for the crown, he has to go back for the second part. They want to know if he needs the antibiotic for this. The dentist does not believe he does. They do already have the antibiotic from the dentist from before if needed. Please advise [phone]. [facility] 04-22-2024 History of Present illness Narrative Images from the original note were not included. HISTORY OF PRESENT ILLNESS: EST PT Marco Antonio Benitez is an 68 y.o. @ male. (EST PT) RECHECK (R) SHOULDER ; HERE FOR MRI RESULTS 04/16/24 IN [facility] XRAYS, 04/10/24 IN [facility] MRI, 04/16/24 IN [facility] NO MDP / PREDNISONE NO CORTISONE INJ [...] to the nearest emergency department (room). Dr. Stepanic obtained history and examined the patient, I am acting as scribe for Dr. Cardeans/sp, PLAN: We have reviewed prior (R) shoulder [...] Yeimi Cardenas D.O. documented in this encounter [facility] 04-10-2024 History of Present illness Narrative Images from the original note were not included. HISTORY OF PRESENT ILLNESS: EST PT Marco Antonio Benitez is an 68 y.o. @ male. (EST PT) NEW COMPLAINT, (R) SHOULDER DISCOMFORT. SYMPTOMS BEGAN 03/27/24 (2 WKS) - DENIES ANY INJURY XRAYS DONE TODAY, 04/10/24 IN [facility] NO MRI NO MDP / PREDNISONE NO [...] Future Standing Expiration Date: 04/10/2025 Scheduling Instructions: [facility] ; Please call patient to schedule, thank [...] Yeimi Cardenas D.O. documented in this encounter [facility] 02-13-2024 History of Present illness Narrative [...] concerns. He continues to consult with his olive picker annually, with the next appointment scheduled for [...] a living will and healthcare power of corporate associate attorney in place. IMMUNIZATIONS He had shingles [...] General (Internal Medicine) Dr. Salome Real (Urology) Jeovn Last MD as Referring Physician (Urology) Over the [...] artery disease. He sees [facility]. He reports no chest pain, [...] care plan. He had a colonoscopy in 2017 and is on a 10-year track. He received the shingles vaccine recently. A routine eye check-up with Dr. Gayle is planned, we will request. 8. Advance care planning. He has a living will and healthcare power of corporate associate attorney in place. Wishes to be full code. 9. Primary insomnia Stable, continue to monitor. Patient is here for follow up of the above chronic problems. I am following Dr. Block's established plan of care for these issues. Dr. Block was in the office suite today and is supervising patient care. documented in this encounter [facility] 11-22-2023 History of Present illness Narrative [...] of CHIRAG. 08/25/2020:Nina 3+3, 2/12 cores 05/28/2019: [place] 3+3=6, 1/12 cores PSA today: 11/15/23 - [...] months. Follow up in 1 year Jevon Last MD documented in this encounter [facility] 11-22-2023 History of Present illness Narrative Radiology [...] PATIENT PRESENTS WITH AN IMPLANTABLE OR ATTACHED RAILWAYS ASSISTANT: No RADIOLOGY DEPARTMENT: MR; Exam(s) Completed: Body: Prostate PERIPHERAL IV DATA: Site assessment: Clean,Dry and Intact, Site disposition Discontinued SIGNED BY: RT Ar(R)Em November 22, 2023 11:51 AM documented in this encounter [facility] 07-31-2023 History of Present illness Narrative Marco Antonio Benitez is a 68 y.o. male presents with chief complaint of 6 Month Follow-up HPI: Review lab drawn 07/30/2023. He continues to take Ozempic which was increased at last OV. He has seen Dr. Ronald payan for right knee pain (hx TKA). He [...] - Comprehensive metabolic panel 2. Pure hypercholesterolemia ([facility]) Continue Atorvastatin, eat a healthy diet, and exercise regularly. - Lipid panel; Future - Lipid panel 3. Prediabetes Continue to minimize added sugars, carbohydrates and control overall calories. Encouraged regular exercise will help to increase your sensitivity to insulin and can help with weight loss or maintenance to prevent progression to diabetes. 4. 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 ([facility]) Doing well. Denies any anginal symptoms. Continue aggressive risk factor modification. Continue current medications. Call if any problems. 5. Gastroesophageal reflux disease without esophagitis Denies breakthrough symptoms with taking Omeprazole. 6. Generalized anxiety disorder ([facility]) Stable. He is not taking Alprazolam regularly. 7. Osteopenia of multiple sites Last DEXA 06/2018 showed osteopenia. 8. Primary insomnia Uses Ambien as needed. Continue current regimen. 9. Primary osteoarthritis involving multiple joints Uses Tylenol as needed for pain. 10. Factor V Leiden ([facility]) Stable. Continue to monitor. 11. Vitamin D deficiency He is taking supplement. Continue to monitor. - Vitamin D 25 hydroxy; Future - Vitamin D 25 hydroxy 12. History of malignant neoplasm of prostate He is following with Urology and getting PSA checked regularly. 13. Morbid obesity ([facility]) Encouraged to eat a healthy diet and exercise regularly. 14. BMI 32.0-32.9,adult As above. Dr. Block was present in the office at the time of visit today and is supervising patient care. I am following Dr. Block's established plan of care for the above issues. documented in this encounter [facility] 05-30-2023 Note [facility] Cardiology Clinic Note Chief Complaint: Patient [...] Coronary atherosclerosis I25.10: Atherosclerotic heart disease of quinault coronary artery without angina pectoris 2. Abnormal findings diagnostic imaging heart+coronary circulat - Abnormal calcium score 99th percentile for age and gender and race R93.1: Abnormal findings on diagnostic imaging of heart and coronary circulation 3. Factor V Leiden mutation D68.51: Activated protein C resistance FACTOR V LEIDEN: CARE INSTRUCTIONS we will refer to [facility] hematology given history of 2 venous thromboembolic events; especially with his factor V Leiden deficiency; did not recommend lifelong anticoagulation 4. Dysli (more content not included)... [facility] 05-22-2023 History of Present illness Narrative VIRTUAL VISIT PROGRESS NOTE This is a virtual visit using [employer] Video Visit. It required patient-provider interaction for the medical decision making as documented below. I have communicated my name and active licensure. The patient's identity and physical location were verified at the time of this visit. Either the patient or their legal customer development representative has been informed of the risks [...] - No malignancy. 3 cores of CHIRAG. 08/25/2020:[place] 3+3, 2/12 cores 05/28/2019: [place] 3+3=6, 1/12 cores PSA today: 10/29/2022 - [...] 6 months with follow up after Jevon Last MD documented in this encounter [facility] 03-05-2023 Evaluation note Encounter Date Diagnosis Assessment [...] History of lumbar fusion (ICD-10 - Z98.1) [employer] Other 05-05-2023 History of Present illness Narrative* Mark Anthony Real MD - 10/26/2022 10:30 AM EDT REASON FOR VISIT: Follow up for Adenocarcinoma of Prostate I have communicated my name and active licensure. The patient's identity and physical location wereverified at the time of this visit. Either the patient or their legal customer development representative has been informed of the risks [...] 1 tablet by mouth once daily. multivit-mins/iron/folic/lycop (MV,CA,EXU-FRYN-QG-LYCOPENE ORAL) Take 1 tablet by mouth once [...] 25, 2022 5:28 PM [facility] Miscellaneous Notes* Telephone Encounter - Mark Anthony Real MD - 04/20/2022 2:37 PM EDT I spoke with . And Mrs. Benitez. Biopsy results are favorable. No malignancy noted. 3 cores of CHIRAG. We will continue with and recheck PSA in 6 months. Mark Anthony Real MD Department of Urology [employer] and Laparoscopy Fellow [facility] History of Present illness Narrative* Kim Saeed [...] Kim Saeed RN T documented in [facility] Nurse Note* Kim Saeed RN - [...] This Education Session: None Instruction Provided To:Patient It Trainee Present: not applicable Discipline: Nursing Learning Topic: Survival Skills: Complication Prevention Symptom Management Patient Evaluation: Verbalizes understanding: Yes Supplemental Material Given: Written Material Instructed By Kim Saeed RN In Department Urology . 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 MRI [...] reconstruction of the prostate gland using the [employer] system. Trans-rectal ultrasound with a guide was [...] MD May 14, 2022, documented in this [facility] Evaluation note* Encounter Date Diagnosis Assessment Notes [...] History of lumbar fusion (ICD-10 - Z98.1) [employer] [facility] Other 08-31-2022 Miscellaneous Notes* Telephone Encounter - Mark Anthony Real MD - 02/21/2022 6:59 PM EDT Spoke with pt and his over the phone. We cannot accomodate 04/26 for TP biopsy. Offered 03/08, which does not work for the patient. We will move the date to 04/12/22. Mark Anthony Real MD Department of Urology Advanced Robotics and Laparoscopy Fellow documented in this encounterPrem[facility] Evaluation note* Encounter Date Diagnosis Assessment Notes [...] follow-up with me on an as-needed basis. [employer] Other 06-02-2022 History of Present illness Narrative* Hugo Garcia MD - 11/23/2021 11:45 AM EDT VIRTUAL VISIT PROGRESS NOTE This is a virtual visit using [employer] video visit. It required patient-provider interaction for the medical decision making as documented below. REASON FOR VISIT: Follow up for Adenocarcinoma of Prostate HPI: 66 year old male with prostate cancer on active surveillance for Nina 3+3 disease. His lastMRI October 2021 showed a PIRADS 3 lesion. Last PSA in August 2021 was 0.8. Prostate Biopsies: 08/25/2020:[place] 3+3, 2/12 cores 05/28/2019: [place] 3+3=6, 1/12 cores MRI October 27 IMPRESSION: [...] 1 tablet by mouth once daily. multivit-mins/iron/folic/lycop (MV,CA,ZIY-MUWQ-WN-LYCOPENE ORAL) Take 1 tablet by mouth once [...] August 2021 was 0.8. 1) Prostate cancer, Nina 3+3 disease 2) MRI 0.8 CM LEFT [...] MD I spent more than 30 minutes [id number] with the patient and over half the time was devoted to counseling and/or coordination of care. documented in this encounterPrem[facility]22 NotePROCEDURE: XR ANKLE LT MIN 3 V, [...] Electronically authenticated by: KEN REGAN Date: 2021-11-02 11:06[facility]05-12-2022 NotePROCEDURE: XR ANKLE LT MIN 3 [...] Electronically authenticated by: KEN REGAN Date: 2021-11-02 11:06[facility]05-12-2022 NotePROCEDURE: XR FOOT RT MIN 3 [...] Electronically authenticated by: KEN REGAN Date: 2021-11-02 10:41[facility]05-06-2022 History of Present illness Narrative* Annette [...] 2021 TIME: 8:58 AM [facility]* Diagnosis Malignant neoplasm of prostate (HCC) Malignant neoplasm of prostate [facility]* Diagnosis Prostate cancer (HCC) Malignant neoplasm of prostate [facility] noteNo assessment information availableAshtabula [facility] Work Phone: Evaluation note* Diagnosis Prostate cancer (HCC)- Primary Malignant neoplasm of prostate [facility]* Diagnosis Prostate cancer (HCC)- Primary Malignant neoplasm of prostate [facility]* Diagnosis Elevated PSA- Primary Elevated prostate specific antigen (PSA) [facility]* Diagnosis Prostate cancer (HCC)- Primary Malignant neoplasm of prostate [facility]* Diagnosis Prostate cancer (HCC)- Primary Malignant neoplasm of prostate [facility]* Diagnosis Essential (primary) hypertension (CMS/HCC)- Primary Unspecified essential hypertension Pure hypercholesterolemia (CMS/HCC) Pure hypercholesterolemia Prediabetes Other abnormal glucose 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 (CMS/HCC) Gastroesophageal reflux [...] obesity BMI 32.0-32.9,adult [facility]* Diagnosis Prostate cancer (HCC)- Primary Malignant neoplasm of prostate Elevated PSA Elevated prostate specific antigen (PSA) documented [facility]* Diagnosis Prostate cancer (HCC) Malignant neoplasm of prostate [facility]* Diagnosis Screening for genitourinary condition Screening for other and unspecified genitourinary condition [facility] Acute pain of right shoulder- Primary Internal derangement of right shoulder documented in this encounter [facility]* Diagnosis Internal derangement of right shoulder- Primary documented in this encounter [facility]* Diagnosis Essential hypertension (CMS/HCC)- Primary Unspecified essential hypertension 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 (CMS/HCC) Prediabetes Other abnormal glucose Pure hypercholesterolemia (CMS/HCC) Pure hypercholesterolemia Generalized anxiety disorder (CMS/HCC) Generalized anxiety disorder Primary insomnia Persistent disorder of initiating or maintaining sleep Medicare annual wellness visit, subsequent ACP (advance care planning) Other specified counseling Prostate cancer screening Special screening for malignant neoplasm of prostate Osteopenia of multiple sites documented in this encounter [facility] HealthcareEvaluation note* Diagnosis Acute cough- Primary Bronchitis Bronchitis, not specified as acute or chronic Decreased breath sounds at right lung base documented in this encounter [facility] HealthcareEvaluation note* Diagnosis Acute cough- Primary documented in this encounter [facility] HealthcareEvaluation note* Diagnosis History of right knee joint replacement- Primary Acute pain of right knee Strain of right shoulder, initial encounter documented in this encounter [facility] HealthcareEvaluation note* Diagnosis Acute cough documented in this encounter [facility] HealthcareEvaluation note* Diagnosis Pure hypercholesterolemia (CMS/HCC)- Primary Pure hypercholesterolemia 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 (CMS/HCC) Prediabetes Other abnormal glucose Generalized anxiety disorder (CMS/HCC) Generalized anxiety disorder Primary insomnia Persistent disorder of initiating or maintaining sleep Vitamin D deficiency History of malignant neoplasm of prostate Obesity (BMI 30.0-34.9) documented in this encounter [facility] HealthcareEvaluation note* Diagnosis Acute bronchitis, unspecified organism- Primary documented in this encounter [facility] HealthcareEvaluation note* Diagnosis Pain in right foot- Primary Pain in limb [facility] Diagnosis Prostate cancer (HCC)- Primary Malignant neoplasm of prostate documented [facility] Diagnosis Arthritis of right midfoot- Primary Peroneal tendinitis of lower leg, right documented [facility] Diagnosis Pain in right foot Pain in limb [facility] Diagnosis Peroneal tendonitis, right- Primary documented in this encounter [facility]* Diagnosis Peroneal tendonitis, right- Primary documented in this encounter [facility] general Narrative - Reported* Type Description Date Medical History Blood clots Medical History factor V Surgical History hammertoe repair Surgical History vasectomy Surgical History hammer toe Surgical History vasectomy 1997 Surgical History colonoscopy 2009 Surgical History fusion, lisfranc fracture aleks Quarles 05/2016 Surgical History EGD/Colonoscopy (normal- civil engineering intern al hemorrhoids) 04/15/17 Surgical History PLIF (posterior lumbar interbod y fusion) 04/02/18 Surgical History Right Knee Replacement 2019 Hospitalization History see above [employer] Other Reason for visit Narrative* Rehabilitation - Outpatient (Routine) - Authorized Specialty Diagnoses / Procedures Referred By Genesis marcos Referred To Contact Physical Therapy Diagnoses Peroneal tendinitis, right leg Procedures AL PHYSICAL THERAPY EVALUATION HIGH COMPLEX 45 MINS [facility] [place] [facility] [address] [place] [address] Phone: tel: fax: [facility] [address] [place] [address] Phone: tel: fax: Referral ID Status Reason Start Date Expiration Date V isits Requested Visits Authorized [id number] Authorized 01/22/2025 07/21/[address] [facility] Rehabilitation - Outpatient (Routine) - Authorized Specialty Diagnoses / Procedures Referred By Genesis marcos Referred To Contact Physical Therapy Diagnoses Peroneal tendinitis, right leg Procedures AL PHYSICAL THERAPY EVALUATION HIGH COMPLEX 45 MINS [facility] [place] [facility] [address] [place] [address] Phone: tel: fax: [facility] [address] [place] [address] Phone: tel: fax: Referral ID Status Reason Start Date Expiration Date V isits Requested Visits Authorized [id number] Authorized 01/22/2025 06/23/2025 20 30 [facility] Summary Purpose Family History No Family History [...] MRI PELVIS W/WO CONTRAST Navin Redman MD [facility] [place] [address] Mr Imaging Referral ID Status Reason Start Date Expiration Date V isits Requested Visits Authorized [id number] Closed Auto-Generate d Referral 10/02/2021 11/06/2021 1 1 Specialty Diagnoses / Procedures Referred By Genesis marcos Referred To Contact MR IMAGING Diagnoses Prostate cancer (HCC) Procedures MRI 3D POST PROCESSING 3D RENDERING W/INTERP&POSTPROC DIFF WORK STATION Jevon Last MD [address] [place] [address] Mr Imaging [place] [address] Referral ID Status Reason Start Date Expiration Date Visits Requested Visits Authorized [id number] Pending Review Auto-Generat ed Referral 3 06/20/2024 1 1 Specialty Diagnoses / Procedures Referred By Genesis marcos Referred To Contact MR IMAGING Diagnoses Prostate cancer (HCC) Procedures MRI PROSTATE WO/W IVCON MRI PELVIS W/O & W/CONTRAST MATERIAL Jevon Last MD [address] [place] [id number] Mr Imaging [place] [address] Referral ID Status Reason Start Date Expiration Date Visits Requested Visits Authorized [id number] Pending Review Auto-Generat ed Referral 11/20/2023 06/20/2024 1 1 Referral ID Status Reason Start Date Expiration Date V isits Requested Visits Authorized [id number] Closed Auto-Generate d Referral 05/22/2023 06/20/2024 1 1 Referral ID Status Reason Start Date Expiration Date V isits Requested Visits Authorized [id number] Closed Auto-Generate d Referral 11/20/2023 06/20/2024 1 [...] section and content) DATE CREATED AUTHOR 12/18/2017 [facility] DATE CREATED AUTHOR AUTHOR'S ORGANIZ ATION 12/18/2017 [facility] DATE CREATED AUTHOR AUTHOR'S ORGANIZ ATION 06/14/2018 [facility] DATE CREATED AUTHOR AUTHOR'S ORGANIZ ATION 10/26/2020 [facility] DATE CREATED AUTHOR AUTHOR'S ORGANIZ ATION 10/13/2021 [facility] DATE CREATED AUTHOR AUTHOR'S ORGANIZ ATION 10/08/2022 [facility] DATE CREATED AUTHOR AUTHOR'S ORGANIZ ATION 03/06/2024 [facility] DATE CREATED AUTHOR AUTHOR'S ORGANIZ ATION 05/26/2024 [facility] DATE CREATED AUTHOR AUTHOR'S ORGANIZ ATION 01/22/2025 [facility] DATE CREATED AUTHOR AUTHOR'S ORGANIZ ATION 02/05/2025 [facility] EPIC Source Comments (unrecognize d section and content) In the event this informatio n is protected by the Federal Confidentiality of Alcohol and Drug Abuse Patient Records regulations: The Federal rules restrict any use of the information to criminally investigate or prosecute any alcohol or drug abuse patient.[facility] the event this information is protected by the Federal Confidentiality of Alcohol and Drug Abuse Patient Records regulations: The Federal rules restrict any use of the information to criminally investigate or prosecute any alcohol or drug abuse patient.[facility] the event this information is protected by the Federal Confidentiality of Alcohol and Drug Abuse Patient Records regulations: The Federal rules restrict any use of the information to criminally investigate or prosecute any alcohol or drug abuse patient.[facility] the event this information is protected by the Federal Confidentiality of Alcohol and Drug Abuse Patient Records regulations: The Federal rules restrict any use of the information to criminally investigate or prosecute any alcohol or drug abuse patient.[facility] the event this information is protected by the Federal Confidentiality of Alcohol and Drug Abuse Patient Records regulations: The Federal rules restrict any use of the information to criminally investigate or prosecute any alcohol or drug abuse patient.[facility] the event this information is protected by the Federal Confidentiality of Alcohol and Drug Abuse Patient Records regulations: The Federal rules restrict any use of the information to criminally investigate or prosecute any alcohol or drug abuse patient.[facility] the event this information is protected by the Federal Confidentiality of Alcohol and Drug Abuse Patient Records regulations: The Federal rules restrict any use of the information to criminally investigate or prosecute any alcohol or drug abuse patient.[facility] the event this information is protected by the Federal Confidentiality of Alcohol and Drug Abuse Patient Records regulations: The Federal rules restrict any use of the information to criminally investigate or prosecute any alcohol or drug abuse patient.[facility] the event this information is protected by the Federal Confidentiality of Alcohol and Drug Abuse Patient Records regulations: The Federal rules restrict any use of the information to criminally investigate or prosecute any alcohol or drug abuse patient.[facility] the event this information is protected by the Federal Confidentiality of Alcohol and Drug Abuse Patient Records regulations: The Federal rules restrict any use of the information to criminally investigate or prosecute any alcohol or drug abuse patient.[facility] the event this information is protected by the Federal Confidentiality of Alcohol and Drug Abuse Patient Records regulations: The Federal rules restrict any use of the information to criminally investigate or prosecute any alcohol or drug abuse patient.[facility] the event this information is protected by the Federal Confidentiality of Alcohol and Drug Abuse Patient Records regulations: The Federal rules restrict any use of the information to criminally investigate or prosecute any alcohol or drug abuse patient.[facility] the event this information is protected by the Federal Confidentiality of Alcohol and Drug Abuse Patient Records regulations: The Federal rules restrict any use of the information to criminally investigate or prosecute any alcohol or drug abuse patient.[facility] the event this information is protected by the Federal Confidentiality of Alcohol and Drug Abuse Patient Records regulations: The Federal rules restrict any use of the information to criminally investigate or prosecute any alcohol or drug abuse patient.[facility] the event this information is protected by the Federal Confidentiality of Alcohol and Drug Abuse Patient Records regulations: The Federal rules restrict any use of the information to criminally investigate or prosecute any alcohol or drug abuse patient.[facility] the event this information is protected by the Federal Confidentiality of Alcohol and Drug Abuse Patient Records regulations: The Federal rules restrict any use of the information to criminally investigate or prosecute any alcohol or drug abuse patient.[facility] Reason for Visit (unrecogniz ed section and content) Reason Comments Radiology MRI Specialty Diagnoses / Procedures Referred By Contac t Referred To Contact MR IMAGING Diagnoses Malignant neoplasm of prostate (HCC) Procedures MRI PROSTATE WO/W IVCON MRI PELVIS W/WO CONTRAST Navin Redman MD [address] [place] [address] Mr Imaging Referral ID Status Reason Start Date Expiration Date V isits Requested Visits Authorized [id number] Closed Auto-Generate d Referral 10/02/2021 11/06/2021 1 [...] MRI PELVIS W/O & W/CONTRAST MATERIAL Jevon Last MD [address] [place] [address] Mr Imaging [place] [address] Referral ID Status Reason Start Date Expiration Date V isits Requested Visits Authorized [id number] Closed Auto-Generate d Referral 11/20/2023 06/20/2024 1 1 Reason Comments Pain Specialty Diagnoses / Procedures Referred By Contac t Referred To Contact Orthopaedic Surgery Diagnoses Acute pain of right shoulder Annette Block MD [facility] [address] [place] [address] Phone: tel: fax: Jr. Yeimi Cardenas DO [address] [place] [address] Phone: tel: fax: Referral ID Status Reason Start Date Expiration Date V isits Requested Visits Authorized [id number] Closed Consult and Treat 04/06/2024 10/03/2024 1 1 Reason Comments Pain Reason Onset Date Comments dentist 05/11/2024 Reason Comments 6 Month Follow-up Medicare Annual Wellness Visit Aylaen t Reason Comments URI Patient is here toda y with complaints of URI that began 10 days ago. Reason Onset Date Comments needs rx for cough syrup 07/01/2024 Reason Onset Date Comments Med Refill 08/21/2024 Reason Comments 6 Month Follow Up of Chronic Conditions Review lab drawn 08/14/2024, HbA1c = 5.9 Reason Comments New Reason Comments Radiology XR Specialty Diagnoses / Procedures Referred By Contac t Referred To Contact XR IMAGING Diagnoses Pain in right foot Procedures XR FOOT GENERAL 3V AP/LAT/OBL RIGHT RADEX FOOT COMPLETE MINIMUM [address] [place] [address] [place] [address] Phone: tel: fax: [place] [address] Referral ID Status Reason Start Date Expiration Date V isits Requested Visits Authorized [id number] Closed Auto-Generate d Referral 01/19/2025 02/18/2026 1 1 Care Teams (unrecognized sec tion and content) Management Services Technician Relationship Specialty Start Date End Date Annette Block MD [address] [place] [address] PCP - General Internal Medicine 02/21/18 Management Services Technician Relationship Specialty Start Date End Date Annette Block MD [address] [place] [address] PCP - General Internal Medicine 02/21/18 Management Services Technician Relationship Specialty Start Date End Date Annette Block MD [address] [place] [address] PCP - General Internal Medicine 02/21/18 Team Status: Inactive Member Role Status Dates Annette Block MD Primary Care Provider Active Annette Callaway II, MD Attending Provider Active Team Status: Active Member Role Status Annette Block MD Primary Care Provider Active Team Status: Inactive Member Role Status Annette Block MD Primary Care Provider Active Preston Tejada MD Attending Provider Active Management Services Technician Relationship Specialty Start Date End Date Annette Block MD [address] [place] [address] PCP - General Internal Medicine 02/21/18 Management Services Technician Relationship Specialty Start Date End Date Annette Block MD [address] [place] [address] PCP - General Internal Medicine 02/21/18 Management Services Technician Relationship Specialty Start Date End Date Annette Block MD [address] [place] [address] PCP - General Internal Medicine 02/21/18 Management Services Technician Relationship Specialty Start Date End Date Annette Block MD [address] [place] [address] PCP - General Internal Medicine 02/21/18 Management Services Technician Relationship Specialty Start Date End Date Annette Block MD [address] [place] [address] PCP - General Internal Medicine 11/16/22 Mark Anthony Drake MD [address] [place], [place] [id number] Urology 01/15/23 Management Services Technician Relationship Specialty Start Date End Date Annette Block MD [address] [place] [address] PCP - General Internal Medicine 11/16/22 Mark Anthony Drake MD [address] [place] [address] Urology 01/15/23 Management Services Technician Relationship Specialty Start Date End Date Annette Block MD [address] [place] [address] PCP - General Internal Medicine 02/21/18 Management Services Technician Relationship Specialty Start Date End Date Annette Block MD [address] [place] [address] PCP - General Internal Medicine 02/21/18 Management Services Technician Relationship Specialty Start Date End Date Annette Block MD [address] [place] [address] PCP - General Internal Medicine 02/21/18 Management Services Technician Relationship Specialty Start Date End Date Annette Block MD [address] [place] [address] PCP - General Internal Medicine 02/21/18 Team Status: Inactive Member Role Status Dates Annette Block MD Primary Care Provider Active St art: March 04, 2024 End: March 04, 2024 Preston Tejada MD Attending Provider Active Star t: March 04, 2024 End: March 04, 2024 Management Services Technician Relationship Specialty Start Date End Date Annette Block MD [address] [place] [address] PCP - General Internal Medicine 11/16/22 Jevon Last MD [address] [place] [address] Referring Physician Urology 01/28/24 Ron Hartley OD [address] [place] [address] Referring Physician Optometry 02/13/24 Mark Anthony Drake MD [address] [place] [address] Urology 01/15/23 [facility] 02/13/24 Management Services Technician Relationship Specialty Start Date End Date Annette Block MD [address] [place] [address] PCP - General Internal Medicine 11/16/22 Jevon Last MD [address] [place] [address] Referring Physician Urology 01/28/24 Ron Hartley, OD [facility] [place] [address] Referring Physician Optometry 02/13/24 Mark Anthony Drake MD [address] [place] [address] Urology 01/15/23 [facility] 02/13/24 Management Services Technician Relationship Specialty Start Date End Date Annette Block MD [address] [place] [place] [address] PCP - General Internal Medicine 11/16/22 Jevon Last MD [address] [place] [address] Referring Physician Urology 01/28/24 Ron Hartley, OD [address] [place] [address] Referring Physician Optometry 02/13/24 Mark Anthony Drake MD [address] [place] [address] Urology 01/15/23 [facility] 02/13/24 Management Services Technician Relationship Specialty Start Date End Date Annette Block MD [address] [place] [address] PCP - General Internal Medicine 11/16/22 Jevon Last MD [address] [place] [address] Referring Physician Urology 01/28/24 Ron Hartley, OD [address] [place] [phone] Referring Physician Optometry 02/13/24 Mark Anthony Drake MD [address] [place] [address] Urology 01/15/23 [facility] 02/13/24 Management Services Technician Relationship Specialty Start Date End Date Annette Block MD [address] [place] [address] PCP - General Internal Medicine 11/16/22 Jevon Last MD [address] [place] [address] Referring Physician Urology 01/28/24 Ron Hartley, OD [address] [place] [address] Referring Physician Optometry 02/13/24 Mark Anthony Drake MD [address] [place] [address] Urology 01/15/23 [facility] Card[facility] 02/13/24 Management Services Technician Relationship Specialty Start Date End Date Annette Block MD [address] [place] [address] PCP - General Internal Medicine 11/16/22 Jevon Last MD [address] [place] [address] Referring Physician Urology 01/28/24 Mark Anthony Drake MD [address] [place] [address] Urology 01/15/23 Management Services Technician Relationship Specialty Start Date End Date Annette Block MD [address] [place] [address] PCP - General Internal Medicine 11/16/22 Jevon Last MD [address] [place] [address] Referring Physician Urology 01/28/24 Mark Anthony Drake MD [address] [place] [address] Urology 01/15/23 [facility] Cardiology 02/13/24 Management Services Technician Relationship Specialty Start Date End Date Annette Block MD [address] [place] [place] [address] PCP - General Internal Medicine 11/16/22 Jevon Last MD [address] [place] [address] Referring Physician Urology 01/28/24 Ron Hartley, VARUN [address] [place] [address] Referring Physician Optometry 02/13/24 Mark Anthony Drake MD [address] [place] [address] Urology 01/15/23 [facility] 02/13/24 Management Services Technician Relationship Specialty Start Date End Date Annette Block MD [address] [place] [address] PCP - General Internal Medicine 11/16/22 Jevon Last MD [address] [place] [address] Referring Physician Urology 01/28/24 Ron Hartley, OD [address] [place] [address] Referring Physician Optometry 02/13/24 Mark Anthony Drake MD [address] [place] [address] Urology 01/15/23 [facility] 02/13/24 Management Services Technician Relationship Specialty Start Date End Date Annette Block MD [address] [place] [address] PCP - General Internal Medicine 11/16/22 Yudy Gupta NP [address] [id number] PCP - ACO Reach 07/31/24 Jevon Last MD [address] [place] [address] Referring Physician Urology 01/28/24 Ron Hartley W, OD [facility] [place] [address] Referring Physician Optometry 02/13/24 Mark Anthony Drake MD [address] [place] [address] Urology 01/15/23 [facility] 02/13/24 Management Services Technician Relationship Specialty Start Date End Date Annette Block MD [address] [place] [address] PCP - General Internal Medicine 11/16/22 Yudy Gupta NP [facility] [address] [address] PCP - ACO Reach 07/31/24 Jevon Last MD [address] [place] [address] Referring Physician Urology 01/28/24 Ron Hartley, OD [facility] [place] [address] Referring Physician Optometry 02/13/24 Mark Anthony Drake MD [address] [place] [address] Urology 01/15/23 [facility] 02/13/24 Management Services Technician Relationship Specialty Start Date End Date Annette Block MD [address] [place] [address] PCP - General Internal Medicine 11/16/22 Yudy Gupta KENNEL HELPER [address] [place] [address] PCP - ACO Reach 07/31/24 Jevon Last MD [address] [place] [address] Referring Physician Urology 01/28/24 Ron Hartley, OD [address] [place] [address] Referring Physician Optometry 02/13/24 Mark Anthony Drake MD [address] [place], [place] [phone] Urology 01/15/23 [facility] 02/13/24 Management Services Technician Relationship Specialty Start Date End Date Annette Block MD [address] [place] [address] PCP - General Internal Medicine 11/16/22 Yudy Gupta NP [address] [facility] [address] [place] [address] PCP - ACO Reach 07/31/24 Jevon Last MD [address] [place] [address] [address] Referring Physician Urology 01/28/24 Ron Hartley, OD [address] [place] [address] Referring Physician Optometry 02/13/24 Mark Anthony Drake MD [address] [place], [place] [id number] Urology 01/15/23 [facility] 02/13/24 Management Services Technician Relationship Specialty Start Date End Date Annette Block MD [address] [place] [address] PCP - General Internal Medicine 02/21/18 Management Services Technician Relationship Specialty Start Date End Date Annette Block MD [address] [place] [address] PCP - General Internal Medicine 02/21/18 Management Services Technician Relationship Specialty Start Date End Date Annette Block MD [address] [place] [address] PCP - General Internal Medicine 02/21/18 Management Services Technician Relationship Specialty Start Date End Date Annette Block MD [address] [place] [address] PCP - General Internal Medicine 11/16/22 Yudy Gupta KENNEL HELPER [address] [place] [address] PCP - ACO Reach 07/31/24 Jevon Last MD [address] [place] [address] Referring Physician Urology 01/28/24 Ron Hartley, OD [address] [place] [address] Referring Physician Optometry 02/13/24 Mark Anthony Drake MD [address] [place] [address] Urology 01/15/23 [facility] Cardiology 02/13/24 Management Services Technician Relationship Specialty Start Date End Date Annette Block MD [address] [place] [address] PCP - General Internal Medicine 11/16/22 Yudy Gupta KENNEL HELPER [address] [place] [address] PCP - ACO Reach 07/31/24 Jevon Last MD [address] [place] [address] Referring Physician Urology 01/28/24 Ron Hartley, OD [address] [place] [address] Referring Physician Optometry 02/13/24 Mark Anthony Drake MD [address] [place] [address] Urology 01/15/23 [facility] Cardiology 02/13/24 Management Services Technician Relationship Specialty Start Date End Date Annette Block MD [address] [place] [address] PCP - General Internal Medicine 11/16/22 Yudy Gupta KENNEL HELPER [address] [place] [address] PCP - ACO Reach 07/31/24 Jevon Last MD [address] [place] [address] Referring Physician Urology 01/28/24 Ron Hartley, OD [address] [place] [address] Referring Physician Optometry 02/13/24 Mark Anthony Drake MD [address] [address] Urology 01/15/23 [facility] 02/13/24 Management Services Technician Relationship Specialty Start Date End Date Annette Block MD [address] [place] [address] PCP - General Internal Medicine 11/16/22 Yudy Gupta, KENNEL HELPER [address] [place] [address] PCP - ACO Reach 07/31/24 Jevon Last MD [address] [place] [address] Referring Physician Urology 01/28/24 Ron Hartley, OD [address] [place] [address] Referring Physician Optometry 02/13/24 Mark Anthony Drake MD [address] [place] [address] Urology 01/15/23 [facility] 02/13/24 Management Services Technician Relationship Specialty Start Date End Date Annette Block MD [address] [place] [address] PCP - General Internal Medicine 11/16/22 Yudy Gupta, KENNEL HELPER [address] [place] [address] PCP - ACO Reach 07/31/24 Jevon Last MD [address] [place] [address] Referring Physician Urology 01/28/24 Ron Hartley OD [address] [place] [address] Referring Physician Optometry 02/13/24 Mark Anthony Drake MD [address] [place] [address] Urology 01/15/23 ab [facility] Cardiology 02/13/24 Goals (unrecognized section and content) [...] BE BASED ON THE PRIMARY CLINICAL RECORDS. [employer] provides no warranty or guarantee of the accuracy or completeness of information in this document.
[2025-02-06 09:31] LABS: Prostate Specific Antigen Dx 1.39 ng/mL (<=4.00)
== END 2025-02-06 07:39 | disposition home or self-care (01) ==
LOC: LAB 07:39
PROVIDERS: PCP Internal Medicine
DX: C61 Malignant neoplasm of prostate (principal)
CPT/HCPCS: 36415; 84153

== ENCOUNTER 2025-02-20 07:30 | Outpatient (OUT) | payer MEDICARE, OTHER, SELFPAY ==
--- OUTSIDE RECORDS SUMMARY | 2025-02-20 07:33 | XMS_ITS | CCD ---
Author Organization [facility] Care Team Providers Care Client Relation Specialist Name Role Phone ANNETTE BLOCK Unavailable Unavailable ANNETTE BLOCK Unavailable Unavailable Horn, Erin Unavailable Unavailable Rei, Erin Unavailable Unavailable GEORGE DOS SANTOS Unavailable Unavailable ANNETTE BLOCK Primary Care Unavailable ANNETTE BLOCK Referring Unavailable BERRY FISHER Admitting Unavailable BERRY FISHER Attending Unavailable Annette Block MD Primary Care Provider [phone] Annette Callaway II Unavailable Annette Block MD Primary Care Provider MD Annette Block Primary Care Provider [phone] MD Annette Callaway II Attending Provider MD Preston Tejada Attending Provider Preston Tejada Unavailable Annette Block MD Primary Care Provider [phone] DR ANNETTE BLOCK Admitting Unavailable PABLO, DR [...] Unavailable PABLO, DR BRYANT Primary Care Unavailable PUNGOTEAGUE, DR KEN Dunlap Consulting Unavailable JACE, RON [...] Unavaila Annette Alonzo MD Primary Care Provider [phone] Annette Block MD Primary Care Provider MD Annette Block Primary Care Provider MD Preston Tejada Attending Provider Preston Tejada Attending Unavailable Preston Tejada Admitting Unavailable Annette Block Primary Care Unavailable Jevon Last MD Unavailable [phone] Ron Hartley OD Unavailable BERRY FISHER Attending Unavailable BERRY FISHER Attending Unavailable Candy CAPTAIN WAITER, Yudy R Unavailable [phone] Jevon Last MD Unavailable Unavailable BOB JIM Referring Unavailable ANNETTE BLOCK Primary Care Unavailable BOB JIM Attending Unavailable ANNETTE BLOCK Primary Care Unavailable JR. CARDENAS GEORGE C Attending Unavaila briana CARDENAS JR., GEORGE C Referring Unavaila ble ANNETTE BLOCK Attending Unavailable MARCO ANTONIO AMANDA Attending Unavailable MARY COFFEY Attending Unavailable MARGARITO JIMAR Referring Unavailable MARY COFFEY Attending Unavailable EVETTE DUFFY Referring Unavailable JR. CARDENAS GEORGE C Attending Unavaila ANNETTE Alonzo Referring Unavailable JR. CARDENAS GEORGE C Referring Unavaila ble JR. CARDENAS GEORGE C Referring Unavaila ble JR. CARDENAS GEORGE C Attending Unavaila ble MARY COFFEY Attending Unavailable BOB JIM Referring Unavailable MARY COFFEY Attending Unavailable BOB JIM Referring Unavailable MARY COFFEY Attending Unavailable BOB JIM Referring Unavailable ANNETTE BLOCK Referring Unavailable DOMINGO SILVA Attending Unavailable DOMINGO [...] 2018 2:56pm take 1 tablet by radha twice daily as needed for anxiety ALPRAZolam (Xanax) 0.5 MG tablet Take 0.5 mg by mouth 2 (two) times a day as needed for anxiety. Active Comment on above: Take 1 tablet by radha once daily. ascorbic acid 250 mg chewable [...] bedtime. Active azithromycin 250 mg oral tablet (17 sources) Macrolide Antimicrobial Start: 11-21-19 25 azithromycin [...] mg/ml / guaiFENesin 20 mg/ml oral solution (20 sources) Opioid Agonist Start: 08-21-2024 guaiFENesin-codeine (Robitussin-AC) [...] once daily in the morning Iron Ps Ngkpxse-J03-Kypvg Acid (Poly-Iron 150 Forte) 150-25-1 mg-mcg-mg capsule [...] Multivitamin preparation (3 sources) Multivitamin Act prisca Mv,Ca,Vzf-Eqnc-Rf-Lyc opene (Centrum Men) 8 mg iron- 200 mcg-600 mcg Tablet (3 sources) Start: 03-26-20 18 Mv,Ca,Gzu-Kkcb-Ln-Lycope ne (Centrum Men) 8 mg iron- 200 mcg-600 mcg Tablet Active 1 TAB PO Daily March 26, 2018 12:00am Nut.Tx.Gluc.Intol,Lac -Free,Soy (Glucerna) Liquid (3 sources) Start: 03-24-20 Nut.Tx.Gluc.Intol,Lac-Fr ee,Soy (Glucerna) Liquid Active 1 EACH [...] a week. 0 Active polyethylene glycol 3350 02658 mg powder for oral solution (20 sources) Osmotic Laxative take 17 g by mouth every twenty-four hours as needed polyethylene glycol, PEG, 3350 (MiraLax) 17 GM/SCOOP powder Take 17 g by mouth Daily as needed. Active MiraLax Active Comment on above: Take by mouth once d aily. semaglutide (Ozempic, 1 MG/DOSE,) 4 MG/3ML solution pen-injector (15 sources) Start: 08-20-2024 semaglutide (Ozempic, 1 MG/DOSE,) 4 MG/3ML solution pen-injector Indications: Controlled type 2 diabetes mellitus with complication, with long-term current use of insulin ([facility]) , BMI 32.0-32.9,adult Inject 1 mg under the skin 1 (one) time per week 3 mL 11 08/20/2024 Active Start: 08-20-2024 semaglutide (O zempic, 1 MG/DOSE,) 4 MG/3ML solution pen- injector Indications: Controlled type 2 diabetes mellitus with complication, with long-term current use of insulin ([facility]) , BMI 32.0-32.9,adult Inject 1 mg under the skin 1 (one) time per week 3 mL 11 08/20/2024 Active sennosides, long-term 8.6 mg oral tablet (3 sources) Start: [...] do not crush/dissolve/chew/cut/break multivit-mins /iron/folic/l ycop (MV,CA,MIN-IR HB-WZ-PTPHYTS E ORAL) (7 sources) Start: 03-26-2018 End: 10-26-2022 take 1 tablet by mouth once daily multivit-mins/iron/folic/lycop (MV,CA,ABY-KWFI-GR-LYCOPENE ORAL) Take 1 tablet by mouth once daily. 0 03/26/2018 10/26/2022 Discontinued Start: 03-26-2018 take 1 tablet by radha th once daily multivit-mins/iron/folic/lycop (MV,CA,UQR-IHQM-XB-LYCOPENE ORAL) Take 1 tablet by mouth once [...] Coronary arteriosclerosis; Translations: [Atherosclerotic heart disease of [place] coronary artery without angina pectoris] Onset: 11-19-2022 [...] Onset: 01-20-2025 Episodic Other connective tissue disease (5 sources) Peroneal tendinitis of right lower limb; [...] 11-19-2022 Episodic Other aftercare (4 sources) Other roasterman (current) drug therapy; Translations: [OTH LONGTERM 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 THERAPY] Onset: 05-23-2022 Episodic Other [...] Test Name Value Interpretation Reference Range Facility [facility] PSA, DIAGNOSTICon 02-06 PROSTATE SPECIFIC ANTIGEN DX 1.39 ng/mL NINF - 4.00 ng/mL [facility] XR FOOT 3V AP/LAT/OBL RTon 0 01-21-2025 [...] NO SIGNIFICANT CHANGE. NO ACUTE OSSEOUS ABNORMALITY Computer Installer: [facility] Transcribe Date/Time: Jan 21 2025 3:10P Dictated by : ANGELINE RAYO MD This examination was interpreted and the report reviewed and electronically signed by: ANGELINE RAYO MD on Jan 21 2025 3:11PM EST [id number]^ ACN [facility]iology, Radiologist, - 01/21/2025 * * *Final Report* * [...] NO SIGNIFICANT CHANGE. NO ACUTE OSSEOUS ABNORMALITY Computer Installer: [facility] Transcribe Date/Time: Jan 21 2025 3:10P Dictated by : ANGELINE RAYO MD This examination was interpreted and the report reviewed and electronically signed by: ANGELINE RAYO MD on Jan 21 2025 3:11PM EST [id number]^SI^ ACN [facility] XR FOOT 3V AP/LAT/OBL RTOrde red By: Radiologist Radiology on 01-21-2025 [facility] Work Phone: CNOVon 01-20-2025 CNOV Office Visit (ORAVON ) MARCO ANTONIO BENITEZ ([id number]) 1955 M Date Time Provider Department 01/20/25 [...] - Fully Assessed Reason for Visit: New [558880] Primary Visit Diagnosis:Arthritis of right midfoot [M19.071] Other Visit Diagnosis:Peroneal tendinitis of lower leg, right [M76.71] Order(s):CONSULT TO PHYSICAL THERAPY [9016] Order #: [id number]: 1 FUTURE Prescriptions as of 01/20/2025 - [...] Service: OFFICE/OUTPATIENT ESTABLISHED LOW MDM 20 MIN [52343] Letter Text Encounter Status:Closed by BOB JIM on 01/20/25 [facility]V AP/LAT/OBL RTon 0 01-20-2025 [...] NO SIGNIFICANT CHANGE. NO ACUTE OSSEOUS ABNORMALITY Computer [facility] Transcribe Date/Time: Jan 21 2025 3:10P Dictated by : ANGELINE RAYO MD This examination was interpreted and the report reviewed and electronically signed by: ANGELINE RAYO MD on Jan 21 2025 3:11PM EST [id number] Normal [facility] Radiology Study observation (narrative) [facility] URINALYSIS, WITH MICROS COPICon 08-14-2024 BACTERIA URINE TRACE Abnormal NONE SEEN #/HPF [facility] BILIRUBIN URINE Negative NEGATIVE [facility] BLOOD URINE Negative NEGATIVE [facility] CAST SEEN? NONE SEEN NONE SEEN #/LPF [facility] Clarity (U) CLEAR CLEAR [facility] Color (U) LT. YELLOW YELLOW [facility] CRYSTALS SEEN? None Seen None Seen #/HPF [facility] GLUCOSE URINE UA Negative NEGATIVE mg/dL [facility] Interpretation and review of laboratory results Abnormal [facility] Ketones Ql (U) Negative NEGATIVE mg/dL [facility] Leukocyte esterase Test strip Ql (U) Negative NEGATIVE [facility] MUCUS URINE NONE SEEN NONE SEEN [facility] NITRITE URINE Negative NEGATIVE [facility] pH (U) 6.5 [pH] 5.0 - 9.0 [facility] PROTEIN URINE Negative NEG/TRACE mg/dL [facility] SPECIFIC GRAVITY URINE 1.015 1.005 - 1.025 [facility] SQUAMOUS EPITHELIAL CELL URINE RARE NONE/RARE #/LPF [facility] TBH RBC NONE SEEN [facility] TB WBC 0-2 Abnormal NONE SEEN #/HPF [facility] UROBILINOGEN URINE 0.2 EU/dL 0.2 - 1.0 EU/dL [facility] XR Knee - right 1 or 2 [...] Stable RT total knee replacement. 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 [facility] Radiology Study observation (narrative) [facility] XR CHEST 2 VIEWSon XR CHEST 2 [...] Not Available Office Visiton 05-25-2024 Follow-up visit [id number] Roma Benitez 1955 M Date Provider Department Center 05/25/2024 Joshua-BERRY FISHER [facility] Family History Problem Relation Age of Onset Sick sinus syndrome Father Other Other Family Status - Relation Status Age at Father Other Level of Service:26720 [place] OFFICE/OUTPATIENT ESTABLISHED LOW MDM 20 MIN Normal [facility] MHPT PSA, DIAGNOSTICon 05-23 PROSTATE SPECIFIC ANTIGEN DX 1.1 ng/mL NINF - 4.00 ng/mL [facility] MR SHOULDER RIGHT WO IV CONT RASTon [...] right shoulder moderate acromioclavicular degenerative joint disease. [facility] Radiology Study observation (narrative) [facility] XR lumbar spine AP/LAT/FLX/E XTon 03-04-2024 XR lumbar spine AP/LAT/FLX/EXT [facility] Main [address] [address] XRay Report Signed Patient: Marco Antonio Benitez MR#: [id number] : 1955 Acct:[id number] Age/Sex: 68 / M ADM Date: 03/04/24 Loc: XD Room: Type: [facility] Attending Dr: Preston Tejada MD Copies to: [...] Markus Sahu M.D.03/04/2024 9:00 PM Dictation Location: [place] [address] Transcribed By: [facility] 03/04/242099 Dictated By: Markus Sahu DO 03/04/242056 Signed By: 03/04/242099 Normal [facility] ALL CBC WITH AUTO DIFFon BASOPHILS ABSOLUTE AUTO 0.0 [facility] Basophils/100 WBC (Bld) 0.6 % 0.2 - 2.0 % [facility] Eosinophils/100 WBC (Bld) 9.2 % High 0.9 - 7.0 % [facility] Erythrocyte distribution width (RBC) [Ratio] 12.6 % 11.0 - 15.0 % [facility] Hematocrit (Bld) [Volume fraction] 40.3 % Low 42.0 - 54.0 % [facility] Hemoglobin (Bld) [Mass/Vol] 13.4 g/dL Low 14.0 - 18.0 g/dL [facility] IMMATURE GRANULOCYTES ABS AUTO 0.02 [facility] Immature granulocytes/100 WBC (Bld) 0.3 % 0.0 - 0.5 % [facility] Interpretation and review of laboratory results Abnormal [facility] LYMPHOCYTES ABSOLUTE AUTO 1.3 [facility] Lymphocytes/100 WBC (Bld) 20.5 % 20.5 - 60.0 % [facility] MCH (RBC) [Entitic mass] 31.7 pg 25.9 - 34.0 pg [facility] MCHC (RBC) [Mass/Vol] 33.3 g/dL 29.9 - 35.2 g/dL [facility] MCV (RBC) [Entitic vol] 95.3 fL High 80.0 - 94.0 fL [facility] MONOCYTES ABSOLUTE AUTO 0.9 High [facility] Monocytes/100 WBC (Bld) 14.3 % High 1.7 - 12.0 % [facility] NEUTROPHILS ABSOLUTE AUTO 3.4 [facility] Neutrophils/100 WBC (Bld) 55.1 % 43.0 - 75.0 % [facility] Platelet mean volume (Bld) [Entitic vol] 8.4 fL Low 9.5 - 13.5 fL [facility]H EO # 0.6 [facility] PLT 228 [facility] RBC 4.23 Low [facility] WBC 6.2 [facility] MR Prostate WO and W contras t [...] volume were obtained using a semi-automated software (Berry Kitchen). THREE-DIMENSIONAL IMAGIND imaging including complex volumetric analysis of the prostate was created on a dedicated stand-alone workstation (2CODE Online)by the interpreting physician, with images reviewed and [...] Other Findings: None. DIVISION OF RADIOLOGY Provider, [facility] - 11/22/2023 * * *Final Report* * * DATE OF EXAM: Nov 22 2023 12:16PM [facility] 0751 - MRI PROSTATE WO/W [...] volume were obtained using a semi-automated software (Berry Kitchen). THREE-DIMENSIONAL IMAGIND imaging including complex volumetric analysis of the prostate was created on a dedicated stand-alone workstation (2CODE Online)by the interpreting physician, with images reviewed and [...] of suspicion for clinically significant prostate cancer ([place] score 3 + 4 or higher). PI-RADS v2.1 Assessment Categories: PI-RADS 1: Clinically significant cancer is highly unlikely PI-RADS 2: Clinically significant cancer is unlikely PI-RADS 3: Clinically significant cancer is equivocal PI-RADS 4: Clinically significant cancer is likely PI-RADS 5: Clinically significant cancer is highly likely (V.) Computer Installer: LI[employer]TE Transcribe Date/Time: Nov 22 2023 1:34P Dictated by : ALEXIA MOY MD This examination was interpreted and the report reviewed and electronically signed by: LORENZO HEBERT MD on Nov 22 2023 3:20PM [facility] MR Unspecified body region 3 D post processingon 11-22-2023 * * *Final Report* * * DATE OF EXAM: Nov 22 2023 12:16PM Q 0280 - MRI 3D POST PROCESSING / [...] volume were obtained using a semi-automated software (Berry Kitchen). THREE-DIMENSIONAL IMAGIND imaging including complex volumetric analysis of the prostate was created on a dedicated stand-alone workstation (2CODE Online)by the interpreting physician, with images reviewed and [...] Other Findings: None. DIVISION OF RADIOLOGY Provider, [facility] - 11/22/2023 * * *Final Report* * * DATE OF EXAM: Nov 22 2023 12:16PM [facility] 0280 - MRI 3D POST [...] volume were obtained using a semi-automated software (Berry Kitchen). THREE-DIMENSIONAL IMAGIND imaging including complex volumetric analysis of the prostate was created on a dedicated stand-alone workstation (2CODE Online)by the interpreting physician, with images reviewed and [...] Clinically significant cancer is highly likely (V.) Computer Installer: LIZETTE Transcribe Date/Time: Nov 22 2023 1:34P Dictated by : ALEXIA MOY MD This examination was interpreted and the report reviewed and electronically signed by: LORENZO HEBERT MD on Nov 22 2023 3:20PM EST [facility] No Panel Informationon 11-21 IMPRESSION: 1.0 [...] Clinically significant cancer is highly likely (V.) Computer Installer: LIZETTE Transcribe Date/Time: Nov 22 2023 1:34P Dictated by : ALEXIA MOY MD This examination was interpreted and the report reviewed and electronically signed by: LORENZO HEBERT MD on Nov 22 2023 3:20PM [facility] DIVISION OF RADIOLOGY Radiology Study observation (narrative) [facility] No Panel InformationOrdered By: [facility] Provider on 11-22-2023 [facility] URINALYSIS, REFLEX MICROSCOP ICon 11-22-2023 Bilirubin Ql (U) Negative Negative [facility] Clarity (Unsp spec) Clear Clear [facility] Color (U) Light Yellow Yellow [facility] Glucose Test strip (U) [Mass/Vol] Negative Trace, Negative [facility] Hemoglobin Ql (U) Negative Negative, Trace [facility] Interpretation and review of laboratory results Abnormal [facility] Ketones Ql (U) Negative Negative, Trace [facility] Leukocyte esterase Test strip Ql (U) Negative Negative, 25 Rae/uL [facility] Nitrite Ql (U) Negative Negative [facility] pH (U) 5.5 [pH] 5.0 - 8.0 [facility] Protein (U) [Mass/Vol] Negative Trace, Negative [facility] Specific gravity (U) [Rel density] 1.032 High 1.005 - 1.030 [facility] Urobilinogen Ql (U) Normal Normal [facility] Office Visiton 05-30-2023 Follow-up visit [id number] Roma Benitez 1955 M Date Provider Department Center 05/30/2023 Joshua-BERRY FISHER [facility] Family History Problem Relation Age of Onset Sick sinus syndrome Father Other Other Family Status - Relation Status Age at Father Other Level of Service:42355 [place] OFFICE/OUTPATIENT ESTABLISHED LOW MDM 20-29 MIN Normal [facility] GLYCOHEMOGLOBIN A1Con 2022 ADA RECOMMENDATION SEE BELOW Normal [facility] Comment on above: Result Comment: ADA RECOMMENDED LIMIT 4.0 - 6.0 ADA THERAPEUTIC TARGET < 7.0 ACTION SUGGESTED > 7.0 Performed By: #### A 1C #### [facility] [address] [place] [address] Dr. Chari Lantigua Glucose [Mass/Vol] 126 mg/dL Normal [facility] Comment on above: Performed By: #### A 1C #### [facility] [address] [place] [address] [address] Chari Lantigua HbA1c (Bld) [Mass fraction] 6.0 % Normal 4.5-6.2 [facility] Comment on above: Performed By: #### A 1C #### [facility] [address] [place] [address] [address] Chari Lantigua MICROALB CREAT RATIO RANDOMo n 07-21-2022 mALB 3.7 mg/L Normal <=30.0 [facility] Comment on above: Performed By: #### M CRR #### [facility] [address] [place] [address] [address] Chari Lantigua MALB CR RATIO 14.4 mg/g Normal 0.0-29.9 [facility] Comment on above: Performed By: #### M CRR #### [facility] [address] [place] [address] [address] Chari Lantigua MALB CR RATIO RANGE SEE BELOW Normal [facility] Comment on above: Result Comment: NO M ICROALBUMINURIA 0-29 MG/G CLINICAL MICROALBUMINURIA 30-300 MG/G MACROALBUMINURIA >300 MG/G Performed By: #### M CRR #### [facility] [address] [place] [address] Dr. Chari Lantigua URINE CREAT 257.81 mg/dL Normal 20.00-300.00 [facility] Comment on above: Performed By: #### M CRR #### [facility] [address] [place] [address] Dr. Chari Lantigua PROF 14(COMP METB)on 023 Albumin [Mass/Vol] 4.0 g/dL Normal 3.4-5.0 [facility] Comment on above: Performed By: #### C BC #### [facility] [address] [place] [address] Dr. Chari Lantigua Albumin/Globulin [Mass ratio] 1.2 {ratio} Normal [facility] Comment on above: Performed By: #### C BC #### [facility] [address] [place] [address] Dr. Chari Lantigua ALP [Catalytic activity/Vol] 83 U/L Normal 46-116 [facility] Comment on above: Performed By: #### C BC #### [facility] [address] [place] [address] Dr. Chari Lantigua ALT [Catalytic activity/Vol] 46 U/L Normal 16-63 [facility] Comment on above: Performed By: #### C BC #### [facility] [address] [place] [address] Dr. Chari Lantigua Anion gap [Moles/Vol] 14.0 mmol/L Normal [facility] Comment on above: Performed By: #### C BC #### [facility] [address] [place] [address] Dr. Chari Lantigua AST [Catalytic activity/Vol] 30 U/L Normal 15-37 [facility] Comment on above: Performed By: #### C BC #### [facility] [address] [place] [address] Dr. Chari Lantigua Bilirubin [Mass/Vol] 0.5 mg/dL Normal 0.2-1.0 [facility] Comment on above: Performed By: #### C BC #### [facility] [address] [place] [address] Dr. Chari Lantigua Calcium [Mass/Vol] 8.9 mg/dL Normal 8.5-10.1 [facility] Comment on above: Performed By: #### C BC #### [facility] [address] [place] [address] [address] Chari Lantigua Chloride [Moles/Vol] 104 mmol/L Normal 98-107 [facility] Comment on above: Performed By: #### C BC #### [facility] [address] [place] [address] Dr. Chari Lantigua CO2 [Moles/Vol] 28.7 mmol/L Normal 21.0-32.0 [facility] Comment on above: Performed By: #### C BC #### [facility] [address] [place] [address] Dr. Chari Lantigua Creatinine [Mass/Vol] 0.81 mg/dL Normal 0.70-1.30 [facility] Comment on above: Performed By: #### C BC #### [facility] [address] [place] [address] Dr. Chari Lantigua EGFR-AF SUDANESE >60 Normal >=60 [facility] Comment on above: Performed By: #### C BC #### [facility] [address] [place] [address] Dr. Chari Lantigua EGFR-NON AF SUDANESE >60 Normal >=60 [facility] Comment on above: Performed By: #### C BC #### [facility] [address] [place] [address] Dr. Chari Lantigua Globulin (S) [Mass/Vol] 3.4 g/dL Normal [facility] Comment on above: Performed By: #### C BC #### [facility] [address] [place] [address] Dr. Chari Lantigua Glucose [Mass/Vol] 120 mg/dL Critically high 74-106 T [facility] Comment on above: Performed By: #### C BC #### [facility] [address] [address] [address] Chari Lantigua Potassium [Moles/Vol] 4.7 mmol/L Normal 3.5-5.1 [facility] Comment on above: Performed By: #### C BC #### [facility] [address] [place] [address] [address] Chari Lantigua Protein [Mass/Vol] 7.4 g/dL Normal 6.4-8.2 [facility] Comment on above: Performed By: #### C BC #### [facility] [address] [address] [address] Chari Lantigua Sodium [Moles/Vol] 142 mmol/L Normal 136-145 [facility] Comment on above: Performed By: #### C BC #### [facility] [address] [place] [address] Dr. Chari Lantigua Urea nitrogen [Mass/Vol] 21.0 mg/dL Critically high 7.0-18.0 [facility] Comment on above: Performed By: #### C BC #### [facility] [address] [place] [address] [address] Chari Lantigua Urea nitrogen/Creatinine [Mass ratio] 25.9 mg/mg Normal [facility] Comment on above: Performed By: #### C BC #### [facility] [address] [place] [address] Dr. Chari Lantigua UA RANDOMon 07-21-2022 Bilirubin Ql (U) Negative Normal NEGATIVE [facility] Comment on above: Performed By: #### C BC #### [facility] [address] [place] [address] Dr. Chari Lantigua Clarity (U) CLEAR Normal CLEAR [facility] Comment on above: Performed By: #### C BC #### [facility] [address] [place] [address] Dr. Chari Lantigua Color (U) YELLOW Normal YELLOW [facility] Comment on above: Performed By: #### C BC #### [facility] [address] [place] [address] Dr. Chari Lantigua Glucose Ql (U) Negative Normal NEGATIVE [facility] Comment on above: Performed By: #### C BC #### [facility] [address] [place] [address] Dr. Chari Lantigua Hemoglobin Ql (U) Negative Normal NEGATIVE [facility] Comment on above: Performed By: #### C BC #### [facility] [address] [place] [address] Dr. Chari Lantigua Ketones Ql (U) Negative Normal NEGATIVE [facility] Comment on above: Performed By: #### C BC #### [facility] [address] [place] [address] Dr. Chari Lantigua LEUKOCYTES Negative Normal NEGATIVE [facility] Comment on above: Performed By: #### C BC #### [facility] [address] [place] [address] Dr. Chari Lantigua Nitrite Ql (U) Negative Normal NEGATIVE [facility] Comment on above: Performed By: #### C BC #### [facility] [address] [place] [address] Dr. Chari Lantigua pH (U) 6.0 [pH] Normal 5-9 [facility] Comment on above: Performed By: #### C BC #### [facility] [address] [place] [address] Dr. Chari Lantigua SPEC GRAVITY 1.025 Normal 1.005-<=1.02 5 [facility] Comment on above: Performed By: #### C BC #### [facility] [address] [place] [address] Dr. Chari Lantigua UA PROTEIN Negative Normal NEGATIVE/ TRACE [facility] Comment on above: Performed By: #### C BC #### [facility] [address] [place] [address] Dr. Chari Lantigua Urobilinogen Qn (U) 0.2 {Kyle'U}/dL Normal 0.2 - 1. 0 [facility] Comment on above: Performed By: #### C BC #### [facility] [address] [place] [address] Dr. Chari Lantigua PROF CHEM 8 (BAS METB)on Anion gap [Moles/Vol] 11.3 mmol/L Normal [facility] Comment on above: Performed By: #### C BC #### [facility] [address] [place] [address] Dr. Chari Lantigua Calcium [Mass/Vol] 8.8 mg/dL Normal 8.5-10.1 [facility] Comment on above: Performed By: #### C BC #### [facility] [address] [address] [address] Chari Lantigua Chloride [Moles/Vol] 103 mmol/L Normal 98-107 [facility] Comment on above: Performed By: #### C BC #### [facility] [address] [place] [address] Dr. Chari Lantigua CO2 [Moles/Vol] 29.2 mmol/L Normal 21.0-32.0 [facility] Comment on above: Performed By: #### C BC #### [facility] [address] [place] [address] Dr. Chari Lantigua Creatinine [Mass/Vol] 0.72 mg/dL Normal 0.70-1.30 [facility] Comment on above: Performed By: #### C BC #### [facility] [address] [place] [address] Dr. Chari Lantigua EGFR-AF SUDANESE >60 Normal >=60 [facility] Comment on above: Performed By: #### C BC #### [facility] [address] [place] [address] Dr. Chari Lantigua EGFR-NON AF SUDANESE >60 Normal >=60 [facility] Comment on above: Performed By: #### C BC #### [facility] [address] [place] [address] Dr. Chari Lantigua Glucose [Mass/Vol] 133 mg/dL Critically high 74-106 T [facility] Comment on above: Performed By: #### C BC #### [facility] [address] [place] [address] Dr. Chari Lantigua Potassium [Moles/Vol] 4.5 mmol/L Normal 3.5-5.1 [facility] Comment on above: Performed By: #### C BC #### [facility] [address], [place] [address] Dr. Chari Lantigua Sodium [Moles/Vol] 139 mmol/L Normal 136-145 [facility] Comment on above: Performed By: #### C BC #### [facility] [address], [place] [address] Dr. Chari Lantigua Urea nitrogen [Mass/Vol] 16.0 mg/dL Normal 7.0-18.0 [facility] Comment on above: Performed By: #### C BC #### [facility] [address], [place] [address] Dr. Chari Lantigua Urea nitrogen/Creatinine [Mass ratio] 22.2 mg/mg Normal [facility] Comment on above: Performed By: #### C BC #### [facility] [address], [place] [address] Dr. Chari Lantigua SURGICAL PATHOLOGYon 022 Case Report Surgical Pathology Report Case: [id number] Authorizing Provider: Hugo Garcia MD Collected: 04/12/2022 [...] PROSTATE NEEDLE BIOPSY RIGHT, posterior x 2 [facility] Clinical History elevated PSA Clevel and [...] been determined by the performing laboratory within [facility] s Annette [facility] [place] ([facility], [facility] or [facility]) in a manner consistent with CLIA requirements. One or more of these tests have not been cleared or approved by the FDA. [facility] is regulated under CLIA as qualified to perform high-complexity testing. These tests are used for clinical purposes. They should not be regarded as investigational or for research. Positive and negative controls stain appropriately. [facility] FINAL DIAGNOSIS A. Prostate, left mi [...] right posterior, biopsy: - Benign prostate tissue. JOLEEN/laurie 04/17/2022 [facility] Gross Description A. PROSTATE NEEDLE BIOPSY [...] in one cassette. Gross examination performed at [facility], [address] [place] [address] JS 04/12/2022 10:13 PM [facility] Performing Lab Diagnostic interpretation performed at [facility], [address] [facility] [address] CLIA# [id number] Digital Court Reporter: Gutierrez Jha M.D. [facility] UA DIP, URINE (POC)on 2021 BILIRUBIN UA (POCT) Negative Negative [facility] CLARITY UA (POCT) Clear [facility] COLOR UA (POCT) Yellow [facility] GLUCOSE UA (POCT) Negative Negative mg/dL [facility] HEMOGLOBIN/BLOOD UA (POCT) Negative Negative [facility] KETONE UA (POCT) Negative Negative mg/dL [facility] LEUKOCYTES UA (POCT) Negative Negative [facility] NITRITE UA (POCT) Negative Negative [facility] PH UA (POCT) 6.0 4.5 - 8.0 [facility] Protein Ql (U) Negative Negative mg/dL [facility] SPECIFIC GRAVITY UA (POCT) 1.025 1.005 - 1.030 [facility] UROBILINOGEN UA (POCT) 0.2 E.U./dL Normal E.U./dL [facility] US TRANSRECTAL PROSTATE (ALEXEI S) (POC) GUKI USE ONLYon 04-12-2022 [facility] Covid-19 PCR (CVDTB)on 01-22 SARS-CoV-2 (COVID-19) RNA ILA+probe Ql (Unsp spec) Detected Critically abnormal NOT DETECTED [facility] Comment on above: Result Comment: This test is not yet approved or cleared by the [place] FDA. When there are no FDA-approved or cleared tests available, and other criteria are met, FDA can make tests available under an emergency access mechanism called an Emergency Use Authorization (EUA). The EUA for this test is supported by the [place] of Health and Human Service's (HHS's) declaration [...] used). Performed By: #### C VDTB #### [facility] [address] [place] [address] Dr. Chari Lantigua INFLUENZA A AND B AGon 02-08 INFLUENZA A AG Negative Normal NEGATIVE SEE COMMENT [facility] Comment on above: Performed By: #### I NFLUAB #### [facility] [address] [place] [address] Dr. Chari Lantigua INFLUENZA B AG Negative Normal NEGATIVE SEE COMMENT [facility] Comment on above: Performed By: #### I NFLUAB #### [facility] [address] [place] [address] Dr. Chari Lantigua INTERNAL CONTROLS Within Normal Limits Normal Wi thin Normal Limits [facility] Comment on above: Performed By: #### I NFLUAB #### [facility] [address] [place] [address] Dr. Chari Lantigua CBC AUTO DIFFon 01-19-2022 BASO # 0.0 103/ul Normal 0.0-0.1 [facility] Comment on above: Performed By: #### C BC #### [facility] [address] [place] [address] Dr. Chari Lantigua Basophils/100 WBC (Bld) 0.3 % Normal 0.2-2.0 [facility] Comment on above: Performed By: #### C BC #### [facility] [address] [place] [address] Dr. Chari Lantigua EO # 0.2 103/ul Normal 0.0-0.7 [facility] Comment on above: Performed By: #### C BC #### [facility] [address] [place] [address] Dr. Chari Lantigua Eosinophils/100 WBC (Bld) 3.1 % Normal 0.9-7.0 [facility] Comment on above: Performed By: #### C BC #### [facility] [address] [place] [address] Dr. Chari Lantigua Erythrocyte distribution width (RBC) [Ratio] 13.2 % Normal 11.0-15.0 [facility] Comment on above: Performed By: #### C BC #### [facility] [address] [place] [address] Dr. Chari Lantigua Hematocrit (Bld) [Volume fraction] 43.4 % Normal 42.0-54.0 [facility] Comment on above: Performed By: #### C BC #### [facility] [address] [place] [address] Dr. Chari Lantigua Hemoglobin (Bld) [Mass/Vol] 14.5 g/dL Normal 14.0-18.0 [facility] Comment on above: Performed By: #### C BC #### [facility] [address] [place] [address] Dr. Chari Lantigua IG # 0.03 10e3/ul Normal 0.00-0.03 [facility] Comment on above: Performed By: #### C BC #### [facility] [address] [place] [address] Dr. Chari Lantigua IG % 0.4 % Normal 0.0-0.5 [facility] Comment on above: Performed By: #### C BC #### [facility] [address] [place] [address] Dr. Chari Lantigua LYMPH # 1.7 103/ul Normal 1.2-3.8 [facility] Comment on above: Performed By: #### C BC #### [facility] [address] [place] [address] Dr. Chari Lantigua Lymphocytes/100 WBC (Bld) 23.1 % Normal 20.5-60.0 [facility] Comment on above: Performed By: #### C BC #### [facility] [address] [place] [address] Dr. Chari Lantigua MANUAL DIFF REQ NO Normal [facility] Comment on above: Performed By: #### C BC #### [facility] [address] [place] [address] Dr. Chari Lantigua MCH (RBC) [Entitic mass] 31.3 pg Normal 25.9-34.0 [facility] Comment on above: Performed By: #### C BC #### [facility] [address] [place] [address] Dr. Chari Lantigua MCHC (RBC) [Mass/Vol] 33.4 g/dL Normal 29.9-35.2 [facility] Comment on above: Performed By: #### C BC #### [facility] [address] [place] [address] Dr. Chari Lantigua MCV (RBC) [Entitic vol] 93.7 fL Normal 80.0-94.0 [facility] Comment on above: Performed By: #### C BC #### [facility] [address] [place] [address] Dr. Chari Lantigua MONO # 0.9 103/ul Critically high 0.3-0.8 [facility] Comment on above: Performed By: #### C BC #### [facility] [address] [place] [address] Dr. Chari Lantigua Monocytes/100 WBC (Bld) 12.1 % Critically high 1.7-12.0 [facility] Comment on above: Performed By: #### C BC #### [facility] [address] [place] [address] Dr. Chari Lantigua NEUT # 4.6 103/ul Normal 1.4-6.5 [facility] Comment on above: Performed By: #### C BC #### [facility] [address] [place] [address] Dr. Chari Lantigua Neutrophils/100 WBC (Bld) 61.0 % Normal 43.0-75.0 [facility] Comment on above: Performed By: #### C BC #### [facility] [address] [place] [address] Dr. Chari Lantigua Platelet mean volume (Bld) [Entitic vol] 8.2 fL Critically low 9.5-13.5 [facility] Comment on above: Performed By: #### C BC #### [facility] [address] [place] [address] Dr. Chari Lantigua PLT 219 103/ul Normal 150-450 [facility] Comment on above: Performed By: #### C BC #### [facility] [address] [address] [address] Chari Lantigua RBC 4.63 106/ul Critically low 4.70-6.10 [facility] Comment on above: Performed By: #### C BC #### [facility] [address] [address] [address] Chari Lantigua WBC 7.5 103/ul Normal 4.0-11.0 [facility] Comment on above: Performed By: #### C BC #### [facility] [address] [address] [address] Chari Lantigua GLYCOHEMOGLOBIN A1Con 2021 ADA RECOMMENDATION SEE BELOW Normal [facility] Comment on above: Result Comment: ADA RECOMMENDED LIMIT 4.0 - 6.0 ADA THERAPEUTIC TARGET < 7.0 ACTION SUGGESTED > 7.0 Performed By: #### C BC #### [facility] [address] [place] [address] Dr. Chari Lantigua Glucose [Mass/Vol] 140 mg/dL Normal [facility] Comment on above: Performed By: #### C BC #### [facility] [address] [place] [address] Dr. Chari Lantigua HbA1c (Bld) [Mass fraction] 6.5 % Critically high 4.5-6.2 [facility] Comment on above: Performed By: #### C BC #### [facility] [address] [place] [address] Dr. Chari Lantigua LIPID PROFILEon 01-19-2022 CHOL-HDL RATIO NORM SEE BELOW Normal [facility] Comment on above: Result Comment: 3.3 - 4.4 LOW RISK 4.4 - 7.1 AVERAGE RISK 7.1 - 11.0 MODERATE RISK >11.0 HIGH RISK Performed By: #### C MP, LIPID #### [facility] [address] [place] [address] Dr. Chari Lantigua Cholesterol [Mass/Vol] 139 mg/dL Normal <=200 [facility] Comment on above: Performed By: #### C MP, LIPID #### [facility] [address] [address] [address] Chari Lantigua Cholesterol in HDL [Mass/Vol] 42 mg/dL Normal 40-60 [facility] Comment on above: Performed By: #### C MP, LIPID #### [facility] [address] [address] [address] Chari Lantigua Cholesterol in LDL [Mass/Vol] 71.4 mg/dL Normal [facility] Comment on above: Performed By: #### C MP, LIPID #### [facility] [address] [address] [address] Chari Lantigua Cholesterol.total/Cho lesterol in HDL [Mass ratio] 3.3 {ratio} Normal [facility] Comment on above: Performed By: #### C MP, LIPID #### [facility] [address] [place] [address] Dr. Chari Lantigua HDL NORMAL > or = 60 mg/dl - LO W CARDIOVASCULAR RISK <40 mg/dl - HIGH CARDIOVASCULAR RISK Normal [facility] Comment on above: Performed By: #### C MP, LIPID #### [facility] [address] [place] [address] Dr. Chari Lantigua LDL CALC NORMAL SEE BELOW Normal [facility] Comment on above: Result Comment: <100 mg/dl OPTIMAL 100 - 129 mg/dl NEAR OR ABOVE OPTIMAL 130 - 159 mg/dl BORDERLINE HIGH 160 - 189 mg/dl HIGH >190 mg/dl VERY HIGH Performed By: #### C MP, LIPID #### [facility] [address] [place] [address] Dr. Chari Lantigua Triglyceride [Mass/Vol] 128 mg/dL Normal <=150 [facility] Comment on above: Performed By: #### C MP, LIPID #### [facility] [address] [place] [address] Dr. Chari Lantigua VLDL CALC 25.6 mg/dL Normal [facility] Comment on above: Performed By: #### C MP, LIPID #### [facility] [address] [place] [address] Dr. Chari Lantigua PROF 14(COMP METB)on 022 Albumin [Mass/Vol] 3.6 g/dL Normal 3.4-5.0 [facility] Comment on above: Performed By: #### C MP, LIPID #### [facility] [address] [place] [address] Dr. Chari Lantigua Albumin/Globulin [Mass ratio] 1.2 {ratio} Normal [facility] Comment on above: Performed By: #### C MP, LIPID #### [facility] [address] [place] [address] Dr. Chari Lantigua ALP [Catalytic activity/Vol] 71 U/L Normal 46-116 [facility] Comment on above: Performed By: #### C MP, LIPID #### [facility] [address] [place] [address] Dr. Chari Lantigua ALT [Catalytic activity/Vol] 38 U/L Normal 16-63 [facility] Comment on above: Performed By: #### C MP, LIPID #### [facility] [address] [place] [address] Dr. Chari Lantigua Anion gap [Moles/Vol] 10.3 mmol/L Normal [facility] Comment on above: Performed By: #### C MP, LIPID #### [facility] [address] [place] [address] Dr. Chari Lantigua AST [Catalytic activity/Vol] 26 U/L Normal 15-37 [facility] Comment on above: Performed By: #### C MP, LIPID #### [facility] [address] [address] [address] Chari Lantigua Bilirubin [Mass/Vol] 0.7 mg/dL Normal 0.2-1.0 [facility] Comment on above: Performed By: #### C MP, LIPID #### [facility] [address] [place] [address] Dr. Chari Lantigua Calcium [Mass/Vol] 8.5 mg/dL Normal 8.5-10.1 [facility] Comment on above: Performed By: #### C MP, LIPID #### [facility] [address] [place] [address] Dr. Chari Lantigua Chloride [Moles/Vol] 105 mmol/L Normal 98-107 [facility] Comment on above: Performed By: #### C MP, LIPID #### [facility] [address] [place] [address] Dr. Chari Lantigua CO2 [Moles/Vol] 30.3 mmol/L Normal 21.0-32.0 [facility] Comment on above: Performed By: #### C MP, LIPID #### [facility] [address] [place] [address] Dr. Chari Lantigua Creatinine [Mass/Vol] 0.77 mg/dL Normal 0.70-1.30 [facility] Comment on above: Performed By: #### C MP, LIPID #### [facility] [address] [place] [address] Dr. Chari Lantigua EGFR-AF SUDANESE >60 Normal >=60 [facility] Comment on above: Performed By: #### C MP, LIPID #### [facility] [address] [place] [address] Dr. Chari Lantigua EGFR-NON AF SUDANESE >60 Normal >=60 [facility] Comment on above: Performed By: #### C MP, LIPID #### [facility] [address] [place] [address] Dr. Chari Lantigua Globulin (S) [Mass/Vol] 3.0 g/dL Normal [facility] Comment on above: Performed By: #### C MP, LIPID #### [facility] [address] [place] [address] Dr. Chari Lantigua Glucose [Mass/Vol] 149 mg/dL Critically high 74-106 T [facility] Comment on above: Performed By: #### C MP, LIPID #### [facility] [address] [place] [address] Dr. Chari Lantigua Potassium [Moles/Vol] 4.6 mmol/L Normal 3.5-5.1 [facility] Comment on above: Performed By: #### C MP, LIPID #### [facility] [address] [place] [address] Dr. Chari Lantigua Protein [Mass/Vol] 6.6 g/dL Normal 6.4-8.2 [facility] Comment on above: Performed By: #### C MP, LIPID #### [facility] [address] [address] [address] Chari Lantigua Sodium [Moles/Vol] 141 mmol/L Normal 136-145 [facility] Comment on above: Performed By: #### C MP, LIPID #### [facility] [address] [address] [address] Chari Lantigua Urea nitrogen [Mass/Vol] 12.0 mg/dL Normal 7.0-18.0 [facility] Comment on above: Performed By: #### C MP, LIPID #### [facility] [address] [address] [address] Chari Lantigua Urea nitrogen/Creatinine [Mass ratio] 15.6 mg/mg Normal [facility] Comment on above: Performed By: #### C MP, LIPID #### [facility] [address] FOOT RT WO [...] CHAPIS HUANG Date: 2021-11-06 09:52 Normal [facility] MRI PROSTATE WO/W IVCONon [facility] HOMOCYSTEINEon 10-12-2021 Homocyst(e)ine, Plasma 7.7 umol/L Normal 0.0-17.2 [facility] Comment on above: Performed By: #### H OMCY #### [facility] [address] [address] [address] Chari Lantigua ANTI-BETA 2 GLYCOPROTEIN 1on 10-06-2021 ANTI B2GP1 IGG 0.1 g units Normal 0.0-19.9 [facility] Comment on above: Performed By: #### 9 0118, [id number] #### [facility] [address] [place] [address], [facility] ANTI B2GP1 IGM 1.7 m units Normal 0.0-19.9 [facility] Comment on above: Performed By: #### 9 0118, 05023 #### [facility] [address] [place] [address], [facility] ANTICARDIOLIPIN ANTIBODYon 0 10-06-2021 CARDIOLIPIN IGG 1.6 GPL Normal 0.0-22.9 [facility] Comment on above: Performed By: #### 9 0118, 21221 #### [facility] [address] [place] [address], [place] CARDIOLIPIN IGM 0.9 MPL Normal 0.0-10.9 [facility] Comment on above: Performed By: #### 9 0118, 71262 #### [facility] [address] [place] [address], [place] ANTITHROMBIN III ACTIVITYon 10-06-2021 AT 3 ACTIVITY 100 % Normal 70-120 [facility] Comment on above: Performed By: #### 5 3017, 46743, 60451, 29742 #### [facility] [address] 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 HETEROZYGOUS: One copy of the factor V Leiden variant, c.1601G>A; p.Wzu401Dni, was detected. This is associated with activated [...] function in the F5 gene variant c.1601G>A (p.Puf181Swt). Legacy nomenclature: [id number] (1691G>A) CLINICAL SENSITIVITY: 20-50 percent of individuals with an isolated VTE have the FVL variant. METHODOLOGY: Polymerase chain reaction and fluorescence monitoring. ANALYTICAL SENSITIVITY AND SPECIFICITY: 99 percent. LIMITATIONS: Diagnostic errors can occur due to rare sequence variations. F5 gene mutations, other than p.Glr310Etu, will not be detected. This test was developed and its performance characteristics determined by [facility]. It has not been cleared or approved by the [place] Food and Drug Administration. This test was performed in a CLIA certified laboratory and is intended for clinical purposes. Counseling and informed consent are recommended for genetic testing. Consent forms are available online. Performed By: [facility] [address] [place] [address] Reporter: Harriett Martins MD FACV SPECIMEN Whole Blood Normal [facility] LUPUS ANTICOAGULANTon 2021 LUPUS ANTICOAGUL Negative Normal NEGATIVE [facility] Comment on above: Result Comment: BY H EXAGONAL PHASE PHOSPHOLIPID METHODOLOGY Performed By: #### 5 3017, 19899, 55080, 28268 #### [facility] [address] [place] [address], [facility] PROTEIN C ACTIVITYon 022 PROTEIN C ACTIV 110 % Normal 60-140 [facility] Comment on above: Performed By: #### 5 3017, 99763, 18972, 90694 #### [facility] [address] [place] [address], [facility] PROTEIN S ACTIVITYon 022 PROTEIN S ACTIV 81 % Normal 60-165 [facility] Comment on above: Performed By: #### 5 3017, 18576, 34737, 50016 #### [facility] [address] [place] [address], [place] PROTHROMBIN (F2) [id number] 560 60on 10-06-2021 PROTHROMBIN FRET ( PCR AND FRET) Negative Normal [facility] Comment on above: Result Comment: Alem cation for testing: Assess genetic risk for thrombosis. NEGATIVE: The Factor II, prothrombin N91272V mutation, was not detected. Other causes of [...] M.D., Ph.D. 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 PATHOGENIC VARIANT TESTED: F2 c.*97G>A (C87742V). CLINICAL SENSITIVITY FOR VENOUS THROMBOSIS: Approximately 10 percent. METHODOLOGY: Polymerase chain reaction and fluorescence monitoring. ANALYTICAL SENSITIVITY AND SPECIFICITY: 99 percent. LIMITATIONS: Diagnostic errors can occur due to rare sequence variations. F2 gene variants, other than c.*97G>A (U19625S), will not be detected. This test was developed and its performance characteristics determined by [facility]. It has not been cleared or approved by the [place] Food and Drug Administration. This test was performed in a CLIA certified laboratory and is intended for clinical purposes. Counseling and informed consent are recommended for genetic testing. Consent forms are available online. Performed By: [facility] [address] [place] [address] Reporter: Harriett Martins MD PT PCR SPECIMEN Whole Blood Normal [facility] Cardiovascular Lab Reporton 11-19-2020 Cardiovascular Lab Report [facility] Patient Name: Marco Antonio Benitez [facility] Von MR #: [id number] Department of Physician: Donna Faith M.D. Division of Service Date: 11/18/2020 Cardiology Birthdate: 1955 Adult Cardiovascular Room #: [place] [address] Cardiovascular Laboratory Report FINAL IMPRESSIONS: 1. Severe, [...] the left radial artery was obtained. A 6-Cambodian 11 cm sheath was inserted without difficulty. [...] He was to be transferred to the [facility] in stable condition. FINDINGS: Hemodynamics. AO [...] Fisher M.D. Date Trans: 11/19/2020 05:18 A/aidan [id number] cc: Annette Block M.D. [address] [place] [address] CARDIAC SCORING Addendum [...] INDICATION: Hyperlipidemia, unspecified. COMPARISON: None. ACCESSION NUMBER(S): [id number] ORDERING CLINICIAN: ANNETTE BLOCK TECHNIQUE: Using prospective [...] al. JACC 2014 (http://dx.doi.org/10. 1016/j.j [email or web address]) Reading Handy Worker: Dr. Vaughn Park, Date: 10/24/2020 11:12 am Electronically signed by: MCKINLEY FARR MD [facility] Lower Ext/No Jt/w/oon 2017 Lower Ext/No Jt/w/o [facility] [id number] [place], [place] [address]Uimbo Ext/No Jt/w/oMR#: [id number] Acct: [id number]: MARCO ANTONIO BENITEZ Rep #: [id number]: 1955 M 63 From: Vincent Grier MDPCP: OUT OF TOWN DOCTOR Status: REG CLIStudy: Lower Ext/No Jt/w/o Date of Exam: 06/10/18Exam# [id number] Ordering Dr: Erin MinayaADDENDUM by Dajuan Camejo [...] Camejo MD on 06/11/18 at 1438ORDER #: [id number] MRI/Lower Ext/No Jt/w/o108/12/17 1445Date cc: Erin Minaya DPM; OUT OF TOWN DOCTOR *SignedADDENDUM by Dajuan Camejo MD on 06/11/18 at 1438ORDER #: [id number] MRI/Lower Ext/No Jt/w/o108/12/17 1445Date cc: Erin Minaya [...] muscle.Normal subcutis adipose space. ORD ER #: [id number] MRI/Lower Ext/No Jt/w/oIMPRESSION:Posto perative changes are seen with fusion at the second tarsometatarsalarticul ation. 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.Marrow edema with bone bruise or stress injury of the fourth metatarsal.Arthritic changes.Electronically Signed:Vincent Grier MD at 21:17 ESTTel , Service support , [place]: Erin Minaya DPM; OUT OF TOWN DOCTOR Computer Installer:Rossy Valencia [facility] Vital Signs Date Time Vital Sign Value Performing Clinician Facility 11-20-2024 17:20-0400 Body mass index (BMI) [Ratio] 32.69 kg/m2 Marco Antonio Amanda DO Work Phone: [facility] 11-20-2024 17:20-0400 Body temperature 97.39 [degF] Marco Antonio Amanda DO Work Phone: [facility] 11-20-2024 17:20-0400 Body weight 97.52 kg Marco Antonio Amanda DO Work Phone: [facility] 11-20-2024 17:20-0400 Diastolic blood pressure 82 mm[Hg] Marco Antonio Amanda DO Work Phone: [facility] 11-20-2024 17:20-0400 Heart rate 72 /min Marco Antonio Amanda DO Work Phone: [facility] 11-20-2024 17:20-0400 SaO2% (BldA) [Mass fraction] 97 % Marco Antonio Amanda DO Work Phone: [facility] 11-20-2024 17:20-0400 Systolic blood pressure 120 mm[Hg] Marco Antonio Amanda DO Work Phone: [facility] 08-18-2024 09:05-0500 Body height 172.7 cm Annette Block MD Work Phone: [facility] 08-18-2024 09:05-0500 Diastolic blood pressure 70 mm[Hg] Annette Block MD Work Phone: [facility] 08-18-2024 09:05-0500 Heart rate 90 /min Annette Block MD Work Phone: [facility] 08-18-2024 09:05-0500 SaO2% (BldA) [Mass fraction] 98 % Annette Block MD Work Phone: [facility] 08-18-2024 09:05-0500 Systolic blood pressure 122 mm[Hg] Annette Block MD Work Phone: [facility] 07-01-2024 09:39-0500 Body height 172.7 cm Domingo Silva CAPTAIN WAITER Work Phone: [facility] 07-01-2024 09:39-0500 Body mass index (BMI) [Ratio] 34.52 kg/m2 Domingo Silva CAPTAIN WAITER Work Phone: [facility] 07-01-2024 09:39-0500 Body temperature 97.9 [degF] Domingo Silva CAPTAIN WAITER Work Phone: [facility] 07-01-2024 09:39-0500 Body weight 102.97 kg Domingo Pastranaos CAPTAIN WAITER Work Phone: [facility] 07-01-2024 09:39-0500 Diastolic blood pressure 76 mm[Hg] Domingo Silva CAPTAIN WAITER Work Phone: [facility] 07-01-2024 09:39-0500 Heart rate 85 /min Domingo Pastranaos CAPTAIN WAITER Work Phone: [facility] 07-01-2024 09:39-0500 SaO2% (BldA) [Mass fraction] 96 % Domingo Silva CAPTAIN WAITER Work Phone: [facility] 07-01-2024 09:39-0500 Systolic blood pressure 122 mm[Hg] Domingo Pastranaos CAPTAIN WAITER Work Phone: [facility] 02-13-2024 09:04-0400 Body height 172.7 cm Summer Workman PA Work Phone: [facility] 02-13-2024 09:04-0400 Body mass index (BMI) [Ratio] 33.82 kg/m2 Summer Workman PA Work Phone: [facility] 02-13-2024 09:04-0400 Body weight 100.88 kg Summer Workman PA Work Phone: [facility] 02-13-2024 09:04-0400 Diastolic blood pressure 80 mm[Hg] Summer Workman PA Work Phone: [facility] 02-13-2024 09:04-0400 Heart rate 80 /min Summer Workman PA Work Phone: [facility] 02-13-2024 09:04-0400 SaO2% (BldA) [Mass fraction] 97 % Summer Workman PA Work Phone: [facility] 02-13-2024 09:04-0400 Systolic blood pressure 128 mm[Hg] Summer Workman PA Work Phone: [facility] 11-22-2023 13:24-0400 Body height 172.7 cm Jevon Last MD Work Phone: [facility] 11-22-2023 13:24-0400 Body mass index (BMI) [Ratio] 32.8 kg/m2 Jevon Last MD Work Phone: [facility] 11-22-2023 13:24-0400 Body weight 97.85 kg Jevon Last MD Work Phone: [facility] 07-31-2023 09:03-0500 Body height 172.7 cm Yudy Risaliti CAPTAIN WAITER Work Phone: [facility] 07-31-2023 09:03-0500 Body mass index (BMI) [Ratio] 32.84 kg/m2 Yudy Risaliti CAPTAIN WAITER Work Phone: [facility] 07-31-2023 09:03-0500 Body weight 97.98 kg Yudy Risaliti CAPTAIN WAITER Work Phone: [facility] 07-31-2023 09:03-0500 Diastolic blood pressure 76 mm[Hg] Yudy Risaliti CAPTAIN WAITER Work Phone: [facility] 07-31-2023 09:03-0500 Heart rate 74 /min Yudy Risaliti CAPTAIN WAITER Work Phone: [facility] 07-31-2023 09:03-0500 SaO2% (BldA) [Mass fraction] 96 % Yudy Risaliti CAPTAIN WAITER Work Phone: [facility] 07-31-2023 09:03-0500 Systolic blood pressure 124 mm[Hg] Yudy Risaliti CAPTAIN WAITER Work Phone: [facility] 03-05-2023 11:20-0400 Body height 172.72 cm Preston Tejada Other [facility] Other 03-05-2023 11:20-0400 Body mass index (BMI) [Ratio] 32.99 kg/m2 Preston Tejada Other [facility] Other 03-05-2023 11:20-0400 Body weight 98.43 kg Preston Tejada Other [facility] Other 03-05-2023 11:20-0400 Diastolic blood pressure 80 mm[Hg] Preston Tejada Other [facility] Other 03-05-2023 11:20-0400 Systolic blood pressure 126 mm[Hg] Preston Tejada Other [facility] Other 03-08-2022 12:40-0400 Body height 172.72 cm Preston Tejada Other [facility] Other 03-08-2022 12:40-0400 Body mass index (BMI) [Ratio] 36.94 kg/m2 Preston Tejada Other [facility] Other 03-08-2022 12:40-0400 Body weight 110.22 kg Preston Terrell Other [facility] Other 02-15-2022 12:30-0400 Body height 172.72 cm Annette Aguilerale II Other [facility] Other 02-15-2022 12:30-0400 Body mass index (BMI) [Ratio] 36.94 kg/m2 Annette Achille II Other [facility] Other 02-15-2022 12:30-0400 Body weight 110.22 kg Annette Nilton II Other [facility] Other Encounters Encounter Date Encounter Type Care Provider Facility Start: 02-17-2025 End: 02-17-2025 ambulatory Mary Coffey PT [facility] Comment on above: Peroneal tendonitis, right (Primary Dx) Start: 02-17-2025 End: 02-17-2025 Bamboo flowsheet Mary Coffey PT [facility] Start: 02-17-2025 End: 02-17-2025 Bamboo flowsheet Mary Finneran PT [facility] Start: 02-11-2025 End: 02-11-2025 Bamboo flowsheet Mary Finneran PT [facility] Start: 02-11-2025 End: 02-11-2025 Bamboo flowsheet Mary Finneran PT [facility] Start: 02-11-2025 End: 02-11-2025 ambulatory Mary Finneran PT [facility] Comment on above: Peroneal tendonitis, right (Primary Dx) Start: 02-09-2025 End: 02-09-2025 Bamboo flowsheet Mary Keithneran PT [facility] Start: 02-09-2025 End: 02-09-2025 Bamboo flowsheet Mary Keithneran PT [facility] Start: 02-09-2025 End: 02-09-2025 ambulatory Mary Ariellean PT [facility] Comment on above: Peroneal tendonitis, right (Primary Dx) Start: 02-06-2025 End: 02-06-2025 Clinisync Result Encounter Generic External Data Provider [facility] External Department Unsolicited Start: 02-06-2025 End: 02-06-2025 Clinisync Result Encounter Generic External Data Provider [facility] External Department Unsolicited Start: 02-04-2025 End: 02-04-2025 Bamboo flowsheet Mary Guzmánan PT [facility] Start: 02-04-2025 End: 02-04-2025 Bamboo flowsheet Mary Keithneran PT [facility] Start: 02-04-2025 End: 02-04-2025 ambulatory Mary Keithneran PT [facility] Comment on above: Peroneal tendonitis, right (Primary Dx) Start: 02-01-2025 End: 02-02-2025 ambulatory Mary Finneran PT [facility] Comment on above: Peroneal tendonitis, right (Primary Dx) Start: 02-01-2025 End: 02-01-2025 Bamboo flowsheet Mary Finneran PT [facility] Start: 02-01-2025 End: 02-01-2025 Bamboo flowsheet Mary Coffey PT [facility] Start: 01-20-2025 [...] Marco Antonio Amanda DO Work Phone: [facility] Comment on above: Acute bronchitis, un specified organism (Primary Dx) Start: 11-20-2024 End: 11-20-2024 ambulatory MARCO ANTONIO AMANDA Not Available Start: 08-21-2024 End: 08-21-2024 Telephone encounter Clemente Vega MA [facility] Comment on above: Med Refill Start: 08-18-2024 End: 08-18-2024 Office outpatient visit 25 minutes Annette Block MD Work Phone: [facility] Comment on above: Pure hypercholestero lemia (CMS/HCC) (Primary Dx); 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); Prediabetes; Generalized [...] External Department Unsolicited Start: 07-22-2024 End: 07-22-2024 Bamtammy Cardenas DO Work Phone: [facility] Start: 07-22-2024 End: 07-22-2024 Sanjiv Respect Your Universealtaf Otero Stepandrew DO Work Phone: [facility] Start: 07-22-2024 End: 07-22-2024 Postop follow up visit related to original px Adalberto Lyn CAPTAIN WAITER Work Phone: [facility] Comment on above: History of right kne e joint replacement (Primary Dx); Acute pain of right knee; Strain of right shoulder, initial encounter Start: 07-22-2024 End: 07-22-2024 ambulatory YEIMI RICHEY Not Available Start: 07-01-2024 End: 07-01-2024 Telephone encounter Gretchen Lozano LPN [facility] Comment on above: needs rx for cough s yrup Start: 07-01-2024 End: 07-01-2024 Office outpatient visit 25 minutes Domingo Silva CAPTAIN WAITER Work Phone: [facility] Comment on above: Acute cough (Primary Dx); Bronchitis; Decreased breath sounds at right lung base Start: 07-01-2024 End: 07-01-2024 ambulatory DOMINGO SILVA Not Available Start: 05-25-2024 End: 05-25-2024 ambulatory [facility] Start: 05-23-2024 End: 05-23-2024 Clinisync Result Encounter Generic External Data Provider [facility] External Department Unsolicited Start: 05-23-2024 End: 05-23-2024 Clinisync Result Encounter Generic External Data Provider [facility] External Department Unsolicited Start: 05-11-2024 End: 05-11-2024 Telephone encounter Jr. Yeimi Cardenas DO Work Phone: [facility] Comment on above: dentist Start: 04-22-2024 End: 04-22-2024 Bamboo flowsheet Jr. Yeimi Otero Stepanic DO Work Phone: [facility] Start: 04-22-2024 End: 04-22-2024 Bamboo flowsheet Jr. Yeimi Cardenas DO Work Phone: [facility] Start: 04-22-2024 End: 04-22-2024 Office outpatient visit 25 minutes Jr. Yeimi Cardenas DO Work Phone: [facility] Comment on above: Internal derangement of right shoulder (Primary Dx) Start: 04-22-2024 End: 04-22-2024 ambulatory .YEIMI Not Available Start: 04-16-2024 End: 04-16-2024 ambulatory YEIMI RICHEY STEPANDREW Not Available Start: 04-10-2024 End: 04-10-2024 Bamboo flowsheet Jr. Yeimi Cardenas DO Work Phone: [facility] Start: 04-10-2024 End: 04-10-2024 Bamboo flowsheet Jr. Yeimi Haqanic DO Work Phone: [facility] Start: 04-10-2024 End: 04-10-2024 Office outpatient visit 25 minutes Jr. Yeimi Cardenas DO Work Phone: [facility] Comment on above: Acute pain of right shoulder (Primary Dx); Internal derangement of right shoulder Start: 04-10-2024 End: 04-10-2024 ambulatory YEIMI RICHEY Not Available Start: 03-04-2024 End: 03-04-2024 Patient encounter procedure MD Annette Block Work Phone: [facility] Work Phone: Start: 03-04-2024 End: 03-04-2024 ambulatory MD Annette Block Work Phone: [facility] Work Phone: Start: 02-26-2024 End: 02-26-2024 ambulatory EVETTE DUFFY Not Available Start: 02-13-2024 End: 02-13-2024 Office outpatient visit 25 minutes Evette Duffy PA Work Phone: [facility] Comment on above: Essential hypertensi on (CMS/HCC) (Primary Dx); 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); Prediabetes; Pure hypercholesterolemia (CMS/HCC); Generalized anxiety disorder (CMS/HCC); Primary insomnia; Medicare annual wellness visit, subsequent; ACP (advance care planning); Prostate cancer screening; Osteopenia of multiple sites Start: 02-13-2024 End: 02-13-2024 Patient encounter procedure Evette Duffy PA Work Phone: [facility] Start: 02-11-2024 End: 02-11-2024 Clinisync Result Encounter [...] Gupta NP Work Phone: [facility] Comment on above: Essential (primary) hypertension (CMS/HCC) (Primary Dx); Pure hypercholesterolemia (CMS/HCC); Prediabetes; 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); Gastroesophageal reflux disease without esophagitis; Generalized anxiety disorder (CMS/HCC); Osteopenia of multiple sites; Primary insomnia; Primary osteoarthritis involving multiple joints; Factor V Leiden (CMS/HCC); Vitamin D deficiency; History of malignant neoplasm of prostate; Morbid obesity (CMS/HCC); BMI 32.0-32.9,adult Start: 07-25-2023 Chart abstracting Annette nettles MD Work Phone: [facility] Start: 05-30-2023 End: 05-30-2023 ambulatory [facility] Start: 05-22-2023 End: 05-22-2023 ambulatory Jevon Last MD Work Phone: Urology Comment on above: Prostate cancer (HCC ) (Primary Dx) Start: 05-22-2023 End: 05-22-2023 Telemedicine consultation with patient Jevon Last MD Work Phone: [facility] Start: 03-05-2023 End: 03-05-2023 ambulatory Preston Tejada Other [facility] Other Start: 03-05-2023 Office outpatient vi sit 15 minutes Preston Tejada [facility] Start: 10-26-2022 End: 10-26-2022 ambulatory Mark Anthony Real MD Work Phone: Urology Comment on above: Prostate cancer (HCC ) (Primary Dx) Start: 10-26-2022 End: 10-26-2022 Telemedicine consultation with patient Mark Anthony Real MD Work Phone: [facility] Start: 10-03-2022 End: 10-04-[address] [facility] Facility: Start: 07-21-2022 End: 07-22-[address] ANNETTE [...] 03-08-2022 End: 03-08-2022 ambulatory Preston Tejada Other [facility] Other Start: 03-08-2022 Office outpatient vi sit 15 minutes Preston Tejada [facility] Start: 03-07-2022 End: 03-07-2022 Patient encounter procedure MD Annette Block Work Phone: [facility] Start: 02-21-2022 Telephone encounter Mark Anthony garcia MD Work Phone: Urology Comment on above: Appointment Start: 02-15-2022 End: 02-15-2022 ambulatory Annette Callaway II Other [facility] Other Start: 02-15-2022 Office outpatient ne w 45 minutes Annette Callaway II [facility] Start: 02-15-2022 End: 02-15-2022 Patient encounter procedure MD Annette Block Work Phone: [facility] Start: 02-08-2022 End: 02-08-[address] ANNETTE BLOCK Facility:[facility] Start: 01-19-2022 End: 01-20-[address] ANNETTE BLOCK Facility:[facility] Start: 11-23-2021 End: 11-23-2021 ambulatory Hugo Garcia MD Work Phone: Urology Comment on above: Prostate cancer (HCC ) Start: 11-23-2021 End: 11-23-2021 Telemedicine consultation with patient Hugo Garcia MD Work Phone: [facility] Start: 11-06-2021 End: 11-07-2021 ambulatory RON MCCORMICK Facility:[facility] Start: 11-02-2021 End: 11-03-2021 ambulatory RON MCCORMICK Facility:[facility] Start: 10-27-2021 End: 10-27-2021 Subsequent hospital visit by physician Mri 6 Radio Main Q (I-Stat/1.5t/3t) Work Phone: MRI Q Comment on above: Malignant neoplasm o f prostate (HCC) [C61] Start: 10-11-2021 End: 10-12-[address] DOCTOR REVELES Facility: Start: 11-18-2020 End: 11-19-2020 ambulatory ANNETTE BROADFORD Facility:[facility] Start: 06-10-2018 Patient encounter procedure Erin H orn Facility:[facility] Start: 02-06-2017 Ambulatory [facility] Facility:[id number] Start: 02-06-2017 Ambulatory Facility:[id number] Procedures Date Procedure Procedure Detail Performing Clinician Start: 02-06-2025 MHPT PSA, DIAGNOSTIC Ge neric External Data Provider Start: 01-20-2025 XR FOOT 3V AP/LAT/OB L [...] above: Performed By: #### P SAD #### [facility] [address] [place] [address] Dr. Chari Lantigua Start: 04-12-2022 Level iv surg pathol ogy gross&microscopic exam Hugo Garcia MD Work Phone: Start: 04-12-2022 Us transrct prstate vol brachytx plnning spx Hugo Garcia MD Work Phone: Start: 04-12-2022 Urnls dip stick/tabl et rgnt auto w/o microscopy Hugo Garcia MD Work Phone: Start: 04-11-[address] ANNETTE BLOCK Comment on above: Performed By: #### P SAD #### [facility] [address] [place] [address] Dr. Chari Lantigua Start: 03-07-2022 X-ray of lumbar spin e, six views including bending views MD Annette Block Work Phone: Start: 02-15-2022 End: 02-15-2022 Pelvis X-ray MD Annette Block Work Phone: Start: 10-27-2021 Mri pelvis w/o & w/contrast material Navin Redman MD Work Phone: Start: 04-15-2017 Carter nettles MD Work Phone: History of operative procedure on knee History of right knee joint replacement Adalberto Lyn CAPTAIN WAITER Work Phone: Plan of Treatment Date Care Activity Detail Author Start: 02-04-2028 Urine microalbumin profile DTaP,Tdap,Td Vaccine (2 - Td or Tdap) [facility] Start: 10-04-2027 PROSTATE CANCER SCREENING DISCUSSION PROSTATE CANCER SCREENING DISCUSSION [facility] Start: 10-04-2027 Prostate specific antigen measurement Prostate Cancer Screening Discussion [facility] Start: 04-15-2027 Screening for malignant neoplasm of colon [facility] Start: 01-28-2026 Glaucoma screening Diabetes: Retinopathy Screening [facility] Start: 07-21-2025 Diabetes Screening Diabetes Screening [facility] Start: 07-21-2025 End: 07-21-[address] [facility] Start: 02-25-2025 End: 02-25-2025 ambulatory 02/25/2025 4:30 PM EDT Treatment [facility] [address] [place] [address] Mary Coffey, PT [facility] Start: 02-23-2025 End: 02-23-2025 Patient encounter procedure [facility] Start: 02-22-2025 Influenza vaccination Influenza Vaccine (#1) [facility] Start: 02-17-2025 End: 02-17-2025 ambulatory 02/17/2025 5:[address] [facility] [address] [place] [address] Mary Coffey, PT [facility] Start: 02-15-2025 End: 08-18-2025 25-hydroxyvitamin D3 [Mass/volume] in Serum or Plasma Vitamin D 25 hydroxy Total Lab Routine Vitamin D deficiency Expected: 02/15/2025 (Approximate), Expires: 08/18/2025 [facility] Comment on above: Expected: 02/15/2025 (Approximate), Expi res: 08/18/2025 Start: 02-15-2025 End: 08-18-2025 CBC W Auto Differential panel - Blood CBC and differential Lab Routine Pure hypercholesterolemia (CMS/HCC) Expected: 02/15/2025 (Approximate), Expires: 08/18/2025 [facility] Work Phone: Comment on above: Expected: 02/15/2025 (Approximate), Expi res: 08/18/2025 Start: 02-15-2025 End: 08-18-2025 Comprehensive metabolic 2000 panel - Serum or Plasma Comprehensive metabolic panel Lab Routine Pure hypercholesterolemia (CMS/HCC) Expected: 02/15/2025 (Approximate), Expires: 08/18/2025 [facility] Comment on above: Expected: 02/15/2025 (Approximate), Expi res: 08/18/2025 Start: 02-15-2025 End: 08-18-2025 Lipid 1996 panel - Serum or Plasma Lipid panel Lab Routine Pure hypercholesterolemia (CMS/HCC) Expected: 02/15/2025 (Approximate), Expires: 08/18/2025 [facility] Comment on above: Expected: 02/15/2025 (Approximate), Expi res: 08/18/2025 Start: 02-12-2025 Medicare Annual Wellness (AWV) Medicare Annual Wellness (AWV) [facility] Start: 02-11-2025 End: 02-11-2025 ambulatory [facility] Comment on above: Arrived Start: 02-09-2025 End: 02-09-2025 ambulatory 02/09/2025 7:00 AM EDT Treatment [facility] [address] [place] [address] Mary Coffey, PT [facility] Start: 02-04-2025 End: 02-04-2025 ambulatory [facility] Comment on above: Arrived Start: 02-01-2025 End: 02-01-2025 ambulatory 02/01/2025 6:00 PM EDT Evaluation [facility] [address] [place] [address] Mary Coffey, PT [facility]rived [facility] Comment on above: Arrived Start: 01-20-2025 End: 01-20-2025 Patient encounter procedure Radiology Comment on above: RIGHT FOOT PAIN Start: 01-20-2025 End: 04-21-2025 Prostate specific Ag [Mass/volume] in Serum or Plasma PROSTATE-SPECIFIC ANTIGEN DIAGNOSTIC Lab Routine Prostate cancer (HCC) Expected: 01/20/2025 (Approximate), Expires: 04/21/2025 [facility] Work Phone: Comment on above: Expected: 01/20/2025 (Approximate), Expi res: 04/21/2025 Start: 08-18-2024 End: 08-18-2024 Patient encounter procedure 08/18/2024 9:15 AM EST Office Visit [facility] [address] [place] [id number] Annette Block MD [address] [place] [address] [facility] Start: 08-15-2024 End: 02-12-2025 Basic metabolic 1998 panel - Serum or Plasma Basic metabolic panel Lab Routine Essential hypertension (CMS/HCC) Expected: 08/15/2024 (Approximate), Expires: 02/12/2025 [facility] Work Phone: Comment on above: Expected: 08/15/2024 (Approximate), Expi res: 02/12/2025 Start: 08-15-2024 End: 02-12-2025 Hemoglobin a1c with eag Hemoglobin a1c with eag Lab Routine Prediabetes Expected: 08/15/2024 (Approximate), Expires: 02/12/2025 [facility] Comment on above: Expected: 08/15/2024 (Approximate), Expi res: 02/12/2025 Start: 08-15-2024 End: 02-12-2025 Microalbumin/Creatinine panel in random Urine Microalbumin / creatinine urine ratio Lab Routine Essential hypertension (CMS/HCC) Expected: 08/15/2024 (Approximate), Expires: 02/12/2025 [facility] Comment on above: Expected: 08/15/2024 (Approximate), Expi res: 02/12/2025 Start: 08-15-2024 End: 02-12-2025 Urinalysis complete panel - Urine Urinalysis with microscopic Lab Routine Essential hypertension (CMS/HCC) Expected: 08/15/2024, Expires: 02/12/2025 [facility] Comment on above: Expected: 08/15/2024, Expires: Start: 07-30-2024 Urine screening for protein Diabetes: Urine Protein Screening [facility] Start: 07-22-2024 End: 07-22-2024 Patient encounter procedure [facility] JOEY HO Comment on above: History of right knee joint replacement (Primary Dx); Acute pain of right knee; Strain of right shoulder, initial encounter Start: 07-20-2024 End: 07-20-2024 Patient encounter procedure [facility] ORMaria Eugenia HO Start: 06-24-2024 Advance Directive Discussion Advance Directive Discussion [facility] Start: 04-24-2024 End: 04-24-2024 Patient encounter procedure 04/24/2024 9:00 AM EDT Office Visit [facility] [address] [address] [place] [phone] Jr. Yeimi Cardenas, DO [address] [place] [address] [facility] Start: 04-22-2024 End: 04-22-2024 Patient encounter procedure 04/22/2024 8:00 AM EDT Office Visit [facility] [address] [place] [phone] Jr. Yeimi Cardenas, DO [address] [place] [address] Arrived [facility] Comment on above: Arrived Start: 04-10-2024 End: 04-10-2025 MR Shoulder - right WO contrast MR shoulder right wo IV contrast Imaging Routine Internal derangement of right shoulder Expected: 04/10/2024 (Approximate), Expires: 04/10/2025 [facility] Work Phone: Comment on above: Expected: 04/10/2024 (Approximate), Expi res: 04/10/2025 Start: 04-10-2024 End: 04-10-2024 Patient encounter procedure 04/10/2024 11:00 AM EDT Office Visit [facility] [address] [place] [address] Jr. Yeimi Cardenas C, DO [address] [place] [address] Acute pain of right shoulder [facility] Comment on above: Acute pain of right shoulder Start: 02-23-2024 Influenza vaccination Influenza Vaccine (#1) [facility] Start: 02-13-2024 End: 02-13-2024 Patient encounter procedure [facility] Start: 01-29-2024 End: 07-31-2024 25-hydroxyvitamin D3 [Mass/volume] in Serum or Plasma Vitamin D 25 hydroxy Lab Routine Vitamin D deficiency Expected: 01/29/2024 (Approximate), Expires: 07/31/2024 [facility] Comment on above: Expected: 01/29/2024 (Approximate), Expi res: 07/31/2024 Start: 01-29-2024 End: 07-31-2024 CBC W Auto Differential panel - Blood CBC and differential Lab Routine Essential (primary) hypertension (CMS/HCC) Expected: 01/29/2024 (Approximate), Expires: 07/31/2024 [facility] Work Phone: Comment on above: Expected: 01/29/2024 (Approximate), Expi res: 07/31/2024 Start: 01-29-2024 End: 01-29-2024 Comprehensive metabolic 2000 panel - Serum or Plasma Comprehensive metabolic panel Lab Routine Essential (primary) hypertension (CMS/HCC) Expected: 01/29/2024 (Approximate), Expires: 01/29/2024 [facility] Comment on above: Expected: 01/29/2024 (Approximate), Expi res: 01/29/2024 Start: 01-29-2024 End: 07-31-2024 Lipid 1996 panel - Serum or Plasma Lipid panel Lab Routine Pure hypercholesterolemia (CMS/HCC) Expected: 01/29/2024 (Approximate), Expires: 07/31/2024 [facility] Comment on above: Expected: 01/29/2024 (Approximate), Expi res: 07/31/2024 Start: 01-24-2024 Medicare Annual Wellness (AWV) Medicare Annual Wellness (AWV) [facility] Start: 01-17-2024 DIABETES SCREEN DIABETES SCREEN [facility] Start: 01-17-2024 Diabetes Screening Diabetes Screening [facility] Start: 11-29-2023 End: 11-29-2023 ambulatory 11/29/2023 12:00 PM EDT Results Only [place] [address] [address] [place] [address] PSA/PROSTSPECAG DIAG [place] [address] [address] Comment on above: PSA/PROSTSPECAG DIAG Start: 11-20-2023 End: 06-20-2024 MRI PROSTATE WO/W IVCON MRI PROSTATE WO/W IVCON Radiology Routine Prostate cancer (HCC) Expected: 11/20/2023, Expires: 06/20/2024 [facility] Work Phone: Comment on above: Expected: 11/20/2023, Expires: Start: 11-20-2023 End: 02-19-2024 Prostate specific Ag [Mass/volume] in Serum or Plasma PSA/PROSTSPECAG DIAG Lab Routine Prostate cancer (HCC) Expected: 11/20/2023, Expires: 02/19/2024 [facility] Work Phone: Comment on above: Expected: 11/20/2023, Expires: Start: 08-15-2023 Covid-19 Vaccine () Covid-19 Vaccine () [facility] Start: 07-31-2023 End: 07-31-2023 Patient encounter procedure 07/31/2023 9:15 AM EST Office Visit [facility] [address] [place] [phone] Annette Block MD [address] [place] [address] Essential (primary) hypertension (CMS/HCC) (Primary Dx); Pure hypercholesterolemia (CMS/HCC); Prediabetes; 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); Gastroesophageal reflux disease without esophagitis; Generalized anxiety disorder (CMS/HCC); Osteopenia of multiple sites; Primary insomnia; Primary osteoarthritis involving multiple joints; Factor V Leiden (CMS/HCC); Vitamin D deficiency; History of malignant neoplasm of prostate; Morbid obesity (CMS/HCC) [facility] Comment on above: Essential (primary) hypertension ([facility]) (Primary Dx); Pure hypercholesterolemia (CMS/HCC); Prediabetes; 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); Gastroesophageal reflux disease without esophagitis; Generalized anxiety disorder (CMS/HCC); Osteopenia of multiple sites; Primary insomnia; Primary osteoarthritis involving multiple joints; Factor V Leiden (CMS/HCC); Vitamin D deficiency; History of malignant neoplasm of prostate; Morbid obesity (CMS/HCC) Start: 07-21-2023 Urine screening for protein Diabetes: Urine Protein Screening [facility] Start: 06-24-2023 Advance Directive Discussion Advance Directive Discussion [facility] Start: 06-24-2023 Behavioral Health Screening Behavioral Health Screening [facility] Start: 04-28-2023 End: 10-27-2023 Prostate specific Ag [Mass/volume] in Serum or Plasma PSA/PROSTSPECAG DIAG Lab Routine Prostate cancer (HCC) Expected: 04/28/2023, Expires: 10/27/2023 [facility] Work Phone: Comment on above: Expected: 04/28/2023, Expires: Start: 03-24-2023 Medicare Annual Wellness Visit Medicare Annual Wellness Visit [facility] Start: 10-19-2022 Hemoglobin A1c measurement Diabetes: Hemoglobin A1C [facility] Start: 10-19-2022 End: 12-19-2022 Prostate specific Ag [Mass/volume] in Serum or Plasma PSA/PROSTSPECAG DIAG Lab Routine Prostate cancer (HCC) Expected: 10/19/2022, Expires: 12/19/2022 [facility] Work Phone: Comment on above: Expected: 10/19/2022, Expires: Start: 06-24-2022 ADVANCE DIRECTIVE DISCUSSION ADVANCE DIRECTIVE DISCUSSION [facility] Start: 06-24-2022 DEPRESSION ASSESSMENT DEPRESSION ASSESSMENT [facility] Start: 04-10-2022 End: 03-18-2023 Prostate specific Ag [Mass/volume] in Serum or Plasma PSA/PROSTSPECAG DIAG Lab Routine Prostate cancer (HCC) Expected: 04/10/2022 (Approximate), Expires: 03/18/2023 [facility] Work Phone: Comment on above: Expected: 04/10/2022 (Approximate), Expi res: 03/18/2023 Start: 02-22-2022 Influenza vaccination INFLUENZA (#1) [facility] Start: 01-16-2022 Pneumococcal Vaccine: 50+ (2 of 2 - PCV) Pneumococcal Vaccine: 50+ (2 of 2 - PCV) [facility] Start: 01-16-2022 Pneumococcal Vaccine: 65+ (2 - PCV) Pneumococcal Vaccine: 65+ (2 - PCV) [facility] Start: 01-16-2022 Pneumococcal Vaccine: 65+ (2 of 2 - PCV) Pneumococcal Vaccine: 65+ (2 of 2 - PCV) [facility] Start: 01-16-2022 Pneumococcal Vaccine: 65+ Years (2 - PCV) Pneumococcal Vaccine: 65+ Years (2 - PCV) [facility] Start: 01-16-2022 Pneumococcal Vaccine: 65+ Years (2 of 2 - PCV) Pneumococcal Vaccine: 65+ Years (2 of 2 - PCV) [facility] Start: 06-24-2021 ADVANCE DIRECTIVE DISCUSSION ADVANCE DIRECTIVE DISCUSSION [facility] Start: 06-24-2021 DEPRESSION ASSESSMENT DEPRESSION ASSESSMENT [facility] Start: 06-10-2021 COVID-19 VACCINE (5 - Booster for Moderna series) COVID-19 VACCINE (5 - Booster for Moderna series) [facility] Start: 2021 Glaucoma screening Diabetes: Retinopathy Screening [facility] Start: 2020 PNEUMOCOCCAL: 65+ (1 - PCV) PNEUMOCOCCAL: 65+ (1 - PCV) [facility] Start: 2020 PNEUMOVAX AGE 65 AND OVER WITH 5YR LOOKBACK (#1) PNEUMOVAX AGE 65 AND OVER WITH 5YR LOOKBACK (#1) [facility] Start: 04-15-2018 Screening for malignant neoplasm of colon [facility] Start: 2015 RSV Vaccine (1 - 1-dose 60+ series) RSV Vaccine (1 - 1-dose 60+ series) [facility] Start: 2010 PROSTATE CANCER SCREENING DISCUSSION PROSTATE CANCER SCREENING DISCUSSION [facility] Start: 2005 SHINGRIX VACCINE (1 of 2) SHINGRIX VACCINE (1 of 2) [facility] Start: 01-23-2003 Diabetes Screening Diabetes Screening [facility] Start: 2000 COLOGUARD (FIT-DNA) COLOGUARD (FIT-DNA) [facility] Start: 2000 Colonoscopy COLONOSCOPY [facility] Start: 2000 COLORECTAL CANCER SCREENING COLORECTAL CANCER SCREENING [facility] Start: [address] COLONOGRAPHY [facility] Start: 2000 FECAL OCCULT BLOOD FECAL OCCULT BLOOD [facility] Start: 2000 Screening for malignant neoplasm of colon [facility] Start: 2000 SIGMOIDOSCOPY SIGMOIDOSCOPY [facility] Start: 1990 Lipid 1996 panel - Serum or Plasma Lipid Screening [facility] Start: 1990 Lipid panel Lipid Screening [facility] Start: 1990 LIPID SCREEN LIPID SCREEN [facility] Start: 1974 SHINGRIX VACCINE (1 of 2) SHINGRIX VACCINE (1 of 2) [facility] Start: 1974 Urine microalbumin profile DTAP,TDAP,TD (1 - Tdap) [facility] Start: 1973 Anxiety Screening Anxiety Screening [facility] Start: 1973 Depression Screening Depression Screening [facility] Start: 1973 HEPATITIS C SCREENING HEPATITIS C SCREENING [facility] Start: 1973 Hepatitis C screening Hepatitis C Screening [facility] Start: 1967 Adult depression screening assessment DEPRESSION SCREENING [facility] Start: 1961 PNEUMOCOCCAL: 65+ (1 - PCV) PNEUMOCOCCAL: 65+ (1 - PCV) [facility] Start: 1955 Screening for malignant neoplasm of colon [facility] DXA Skeletal system Views for bone density DEXA bone density Imaging Routine Osteopenia of multiple sites Ordered: 02/13/2024 [facility] Comment on above: Ordered: 02/13/2024 End: 06-20-2024 MRI 3D POST PROCESSING MRI 3D POST PROCESSING Radiology Routine Prostate cancer (HCC) 1 Occurrences starting 05/22/2023 until 06/20/2024 [facility] Work Phone: Comment on above: 1 Occurrences starting 05/22/2023 until 06/20/2024 End: 11-21-2024 Prostate specific Ag [Mass/volume] in Serum or Plasma PROSTATE-SPECIFIC ANTIGEN DIAGNOSTIC Lab Routine Prostate cancer (HCC) Every 6 months for 3 Occurrences starting 11/22/2023 until 11/21/2024 [facility] Work Phone: Comment on above: Every 6 months for 3 Occurrences startin g 11/22/2023 until 11/21/2024 XR Chest 2 Views XR chest 2 view s Imaging Routine Acute cough Bronchitis Decreased breath sounds at right lung base 07/01/2024 10:27 AM EST [facility] Work Phone: End: 02-18-2026 XR Foot - right AP and Lateral and oblique XR FOOT GENERAL 3V AP/LAT/OBL RIGHT Radiology Routine Pain in right foot 1 Occurrences starting 01/19/2025 until 02/18/2026 [facility] Work Phone: Comment on above: 1 Occurrences starting 01/19/2025 until 02/18/2026 XR Foot - right AP a nd Lateral and oblique XR FOOT GENERAL 3V AP/LAT/OBL RIGHT Radiology Routine Pain in right foot 01/20/2025 2:09 PM EDT [facility] Work Phone: [facility] Immunizations Immunization Date Immunization Notes Care Provider [facility] 04-08-2024 Seasonal trivalent influenza vaccine, adjuvanted, preservative free Stepanic DO Work Phone: [facility] 04-08-2024 influenza virus vacc ine, unspecified formulation Stepanic DO Work Phone: [facility] 05-26-2023 RSV, recombinant, pr otein subunit RSVpreF, adjuvant reconstitu, 120mcg/0.5mL, PF (Arexvy) Annette Block MD Work Phone: [facility] 04-14-2023 Influenza, Seasonal, Quadrivalent, Adjuvanted Annette Block MD Work Phone: [facility] 10-22-2023 SARS-COV-2 (COVID-19 ) vaccine, mRNA, spike protein, LNP, PF, well[place]-sucrose, 30 mcg/0.3 mL Annette Block MD Work Phone: [facility] 04-14-2023 influenza virus vacc ine, unspecified formulation Generic Provider [facility] 04-14-2022 Influenza, Seasonal, Quadrivalent, Adjuvanted Annette Block MD Work Phone: [facility] 06-04-2021 zoster vaccine recombinant Adrian Block MD Work Phone: [facility] 04-02-2021 Influenza, Seasonal, Quadrivalent, Adjuvanted Annette Block MD Work Phone: [facility] 04-02-2021 zoster vaccine recombinant Adrian Block MD Work Phone: [facility] 03-28-2021 SARS-CoV-2, Unspecified Walt Block MD Work Phone: [facility] 01-16-2021 pneumococcal polysaccharide vaccine, 23 valent Annette Block MD Work Phone: [facility] 09-14-2020 SARS-CoV-2, Unspecified Jr. Stepanic DO Work Phone: [facility] 08-18-2020 SARS-CoV-2, Unspecified Jr. Stepanic DO Work Phone: [facility] 03-22-2020 influenza, injectabl e, quadrivalent, preservative free Annette Block MD Work Phone: [facility] 05-25-2019 influenza, injectabl e, quadrivalent, preservative free Annette Block MD Work Phone: [facility] 03-24-2018 influenza, seasonal, injectable, preservative free Jr. Stepanic DO Work Phone: [facility] 03-17-2018 influenza, injectabl e, quadrivalent, preservative free Annette Block MD Work Phone: [facility] 02-03-2018 tetanus toxoid, redu umang diphtheria toxoid, and acellular pertussis vaccine, adsorbed Annette Block MD Work Phone: [facility] 01-02-2017 zoster vaccine, live Annette Block MD Work Phone: [facility] 05-19-2016 influenza, seasonal, injectable, preservative free JrGiovany Cardenas DO Work Phone: [facility] Healthcare Payers Date Payer Category Payer Medicare 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 2018 Self-pay 2018 Unknown [id number] 1955 Unknown [id number] 2.16.840.1.665702.3.579.2.6 47 1955 Unknown [id number] 2.16.840.1.776210.3.579.2.5 93 1955 Unknown [id number] 2.16.840.1.137470.3.579.2.5 93 1955 Unknown [id number] 2.16.840.1.193354.3.579.2.5 93 1955 Unknown [id number] 2.16.840.1.927657.3.579.2.5 93 1955 Unknown [id number] 2..840.1.632496.3.579.2.5 93 1955 Unknown [id number] 2.16.840.1.573115.3.579.2.5 93 1955 Unknown [id number] 2..840.1.086939.3.579.2.5 93 1955 Unknown [id number] 2..840.1.516462.3.579.2.5 93 1955 Unknown [id number] ..840.1.322374.3.579.2.5 93 1955 Unknown [id number] 2..840.1.185767.3.579.2.1 259 1955 Unknown [id number] ..840.1.964349.3.579.2.1 259 1955 Unknown [id number] ..840.1.560131.3.579.2.1 259 1955 Unknown [id number] ..840.1.406125.3.579.2.1 259 1955 Unknown [id number] ..840.1.686778.3.579.2.1 259 1955 Unknown [id number] 2..840.1.439764.3.579.2.1 259 1955 Unknown [id number] 2..840.1.750658.3.579.2.1 259 1955 Unknown [id number] 2.16.840.1.460312.3.579.2.1 259 1955 Unknown [id number] 2..840.1.008967.3.579.2.1 259 1955 Unknown [id number] 2.16.840.1.527004.3.579.2.1 259 1955 Unknown [id number] 2.16.840.1.404180.3.579.2.1 259 1955 Unknown [id number] 2.16.840.1.507387.3.579.2.1 259 1955 Unknown [id number] 2.16.840.1.149309.3.579.2.1 259 1955 Unknown [id number] 2.16.840.1.902171.3.579.2.1 259 1955 Unknown [id number] 2.16.840.1.452291.3.579.2.1 259 1955 Unknown [id number] 2.16.840.1.715519.3.579.2.1 259 Unknown [id number] 2.16.840.1.688966.3.579.2.4 62 Unknown [id number] 2.16.840.1.909124.3.579.2.5 31 Social History Date Type Detail Facility Tobacco smoking status AZIS Tobacco smoking consumption unknown [facility] Work Phone: Start: 1955 Sex Assigned At Male C [facility] Start: 10-17-2021 End: 04-12-2022 Exposure to SARS-CoV-2 (event) Not sure [facility] Start: 10-26-2022 End: 01-23-[address] [facility] Start: 04-07-2020 End: 11-20-2022 Tobacco smoking status NHIS Never smoked tobacco (finding) [facility] Start: 10-26-2022 End: 01-23-2023 History of [address] [facility] National Score (1-100), lower number is lower risk 62 [facility] Start: 09-03-2021 Gender identity Identifies as male gender (finding) [facility] Start: 11-20-2022 Tobacco use and exposure Smokeless tobacco non-user [facility] Start: 07-25-2023 End: 08-22-2024 Alcohol intake Current drinker of alcohol (finding) [facility] Start: 01-23-2023 Alcohol Comment Caffeine: 2 cups moo ly [facility] Start: 1955 Sex Assigned At Not on file N [facility] Medical Equipment Procedure Code Equipment Code Equipment Origin al Text Equipment Identifier Dates Arthroplasty, knee, total, minimally invasive ART SURF RT 10MM 10-12 [facility] FDA Start: 04-07-2020 Arthroplasty, knee, total, minimally invasive Orthopaedic cement, non-medicated [id number] FDA Start: 04-07-2020 Arthroplasty, knee, total, minimally invasive Uncoated knee femur prosthesis [id number] FDA Start: 04-07-2020 Arthroplasty, knee, total, minimally invasive Uncoated knee tibia prosthesis, metallic [id number] FDA Start: 04-07-2020 Arthroplasty, knee, total, minimally invasive Polyethylene patella prosthesis [id number] FDA Start: 04-07-2020 Arthroplasty, knee, total, minimally [...] FDA Start: 04-02-2018 Clinical Notes 10-27-2021 to 02-17-2025 Mary Coffey, PT - 02/17/2025 5:00 PM EDApril Coffey, PT - 02/11/2025 7:00 AM Javon Coffey, PT - 02/09/2025 7:00 AM Javon Coffey, PT - 02/04/2025 7:00 AM EDT Note Date & Type Note Facility 02-17-2025 History of Present illness Narrative Images from the original note were not included. Physical Therapy Physical Therapy Treatment Visit Patient Name: Marco Antonio Benitez Today's Date: 02/17/2025 Reason: R Peroneal Tendonitis Visit number: 5 Supervised time: 37' Total time: 49' Precautions: R Peroneal Tendonitis Subjective: Pain: 2/10 Overall progress: Is not noticing much of a change since I.E. Plans to potentially get an injection to affected area at his next follow up. Treatment: Manual: x19' STM to base of 5th metatarsal and along distal peroneal tendons, ankle PROM all directions as tolerated, talocrural and subtalar mobs Therapeutic Exercise: x18' supervised / x12' unsupervised per exercise grid including foot intrinsics, ankle flexibility and strengthening Modalities: declined Assessment: Initiated subtalar and talocrural mobs to address ankle joint stiffness. Progressed ankle strengthening and stabilization with no complaints of increased pain. Unable to DF L foot due to L drop foot with wall TR. Continue to progress as tolerated. Plan Continue PT per POC. I hereby deem this POC medically necessary. Please sign below. ___ Date: documented in this encounter [facility] 02-11-2025 History of Present illness Narrative Images from the original note were not included. Physical Therapy Physical Therapy Treatment Visit Patient Name: Marco Antonio Benitez Today's Date: 02/11/2025 Reason: R Peroneal Tendonitis Visit number: 4 Supervised time: 40' Total time: 46' Precautions: R Peroneal Tendonitis Subjective: Pain: 0/10 Overall progress: Patient complaint of period of soreness around base of 5th met that lasted for about 15 minutes following a long workday where he spent many hours on his feet. Treatment: Manual: x10' STM to base of 5th metatarsal and along distal peroneal tendons, ankle PROM all directions as tolerated Therapeutic Exercise: x28' supervised / x6' unsupervised per exercise grid including foot intrinsics, ankle flexibility and strengthening Modalities: declined Assessment: Demonstrated improved technique with foot intrinsics. Continues to require active assistance for proper technique with toe yoga. Able to progress ankle and foot strengthening and stabilization therex with no complaints of increased pain or difficulty. Plan Continue PT per POC. I hereby deem this POC medically necessary. Please sign below. ___ Date: documented in this encounter [facility] 02-09-2025 History of Present illness Narrative Images from the original note were not included. Physical Therapy Physical Therapy Treatment Visit Patient Name: Marco Antonio Benitez Today's Date: 02/09/2025 Reason: R Peroneal Tendonitis Visit number: 3 Supervised time: 34' Total time: 47' Precautions: R Peroneal Tendonitis Subjective: Pain: 0/10 Overall progress: Compliant with HEP. Does not recall any sharp lateral foot pain over this past weekend Treatment: Manual: x9' STM to base of 5th metatarsal and along distal peroneal tendons, ankle PROM all directions as tolerated Therapeutic Exercise: x25' supervised / x13' unsupervised per exercise grid including foot intrinsics, ankle flexibility and strengthening Modalities: declined Assessment: Reports relief with STM to base of 5th metatarsal. Good technique noted with ankle 4 way, no longer requiring tactile/verbal cueing to avoid LE compensations with inv/ev. Continued to be challenged with correct technique with foot intrinsics however technique is improving. Continue to progress as tolerated. Plan Continue PT per POC. I hereby deem this POC medically necessary. Please sign below. ___ Date: documented in this encounter [facility] 02-04-2025 History of Present illness Narrative Images from the original note were not included. Physical Therapy Physical Therapy Treatment Visit Patient Name: Marco Antonio Benitez Today's Date: 02/04/2025 Reason: R Peroneal Tendonitis Visit number: 2 Supervised time: 47' Total time: 47' Precautions: R Peroneal Tendonitis Subjective: Pain: 2-3/10 Overall progress: Compliant with HEP. Continues to [...] below. ___ Date: documented in this encounter [facility] 02-01-2025 History of Present illness Narrative Images [...] believes has helped with his pain. Pain: 5-/ Imaging: XR of bilateral feet with posttraumatic mid/forefoot changes, no obvious hardware complications, malunion of 4th and 5th MT bases. 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 __ Date: documented in this encounter [facility] 01-20-2025 Note HNO ID: [id number] Author: BOB JIM MD Service: ? Author [...] care. Bob Jim MD Medical Decision Making [facility] 01-20-2025 History of Present illness Narrative [...] Medical Decision Making documented in this encounter [facility] 01-20-2025 History of Present illness Narrative Radiology [...] PATIENT PRESENTS WITH AN IMPLANTABLE OR ATTACHED METAL PAINTER: No RADIOLOGY DEPARTMENT: General X-ray: Exam(s) Completed: Lower Extremity X-Ray(s): Feet, Right and Wt. Bearing PERIPHERAL IV DATA: Not applicable SIGNED BY: TOBIAS Rooney) January 20, 2025 2:04 PM documented in this encounter [facility] 01-20-2025 Note HNO ID: [id number] Author: MAISHA TATE RT(R) Service: Radiology Author Type: Technologist Type: [...] PATIENT PRESENTS WITH AN IMPLANTABLE OR ATTACHED METAL PAINTER: No RADIOLOGY DEPARTMENT: General X-ray: Exam(s) Completed: Lower Extremity X-Ray(s): Feet, Right and Wt. Bearing PERIPHERAL IV DATA: Not applicable SIGNED BY: RT Toribio(R) January 20, 2025 2:04 PM [facility] 11-20-2024 History of Present illness Narrative Images from the original note were not included. [address] [facility], [address] P: [phone] F: [phone] HPI Historian of HPI: patient Marco Antonio [...] RTO if worsening. documented in this encounter [facility] 08-21-2024 Telephone encounter Note Hi, I am calling for Marco Antonio Emmanuel. Date of , 1654, he had just seen Dr. Block, and the nurse had asked him about a refill on the guaifenesin-codeine cough syrup, and he actually thought he had a refill on it. He does not if he could get a refill of that, if it could go to [facility], I appreciate it. Marco Antonio's date of is 55 and phone number. You can reach me at [phone], if there is any question. Thanks, bylizzy. -Copied from [place] to refill? [facility] 08-21-2024 Miscellaneous Notes Hi, I am calling for Marco Antonio [place]. Date of , 1654, he had just seen Dr. Block, and the nurse had asked him about a refill on the guaifenesin-codeine cough syrup, and he actually thought he had a refill on it. He does not if he could get a refill of that, if it could go to [facility], I appreciate it. Marco Antonio's date of is 55 and phone number. You can reach me at [phone], if there is any question. Thanks, bye. -Copied from [place] to refill? documented in this encounter [facility] 08-18-2024 History of Present illness Narrative Images from the original note were not included. Marco Antonio Longoria Emmanuel is a 69 y.o. male presents with [...] Lipid panel 2. 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) Doing well. [...] muscle mass loss. documented in this encounter [facility] 07-22-2024 History of Present illness Narrative Images from the original note were not included. HISTORY OF PRESENT ILLNESS: EST PT Marco Antonio Benitez is an 69 y.o. @ male. (EST PT) - HERE FOR YEARLY RECHECK OF (R) TKA 04/07/20 (4 YRS, 3 MONTHS, 2 WKS) XRAYS TODAY, 07/22/24 [facility] 07/15/23 IN [facility] FINISHED PHYSICAL THERAPY ; POST-OP OLD NOTE: DOING WELL. SOME OCCASIONAL DISCOMFORT - SOME STIFFNESS IN THE AM ; OTHERWISE GOOD ROM - NOTES LONGTERM LIMITED ROM WITH FLEXION. DENIES ANY INSTABILTIY [...] Stable RT total knee replacement. 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 documented in this encounter [facility] 07-01-2024 Telephone encounter Note states edwardo annamado does not work for him. Requesting Cherat[facility] RX RX loaded [facility] 07-01-2024 Miscellaneous Notes states kellkelsi lashae does not work for him. Requesting [facility] RX loaded documented in this encounter [facility] 07-01-2024 History of Present illness Narrative Images [...] chest 2 views documented in this encounter [facility] 05-25-2024 Note [facility] Cardiology Clinic Note Chief Complaint: Patient [...] and systolic f (more content not included)... [facility] 05-11-2024 Telephone encounter Note Spoke with .. answered questions.. does not need antibiotic to get new crown cemented on, no drilling or work to gum/ teeth [facility] Work Phone: 05-11-2024 Miscellaneous Notes Spoke with [...] dentist from before if needed. Please advise [phone]. documented in this encounter [facility] 05-11-2024 Telephone encounter Note Patient's called regarding his upcoming dentist appointment. Patient already took antibiotic for the crown, he has to go back for the second part. They want to know if he needs the antibiotic for this. The dentist does not believe he does. They do already have the antibiotic from the dentist from before if needed. Please advise [phone]. [facility] 04-22-2024 History of Present illness Narrative Images from the original note were not included. HISTORY OF PRESENT ILLNESS: EST PT Marco Antonio Benitez is an 68 y.o. @ male. (EST PT) RECHECK (R) SHOULDER ; HERE FOR MRI RESULTS [facility]/24 [facility], 04/10/24 [facility] MRI, 04/16/24 [facility] NO MDP / PREDNISONE NO [...] Yeimi Cardenas D.O. documented in this encounter [facility] 04-10-2024 History of Present illness Narrative Images [...] Yeimi Cardenas D.O. documented in this encounter [facility] 02-13-2024 History of Present illness Narrative Images [...] concerns. He continues to consult with his clinical laboratory science professor annually, with the next appointment scheduled for [...] a living will and healthcare power of collections attorney in place. IMMUNIZATIONS He had shingles [...] (Internal Medicine) Dr. Salome Real (Urology) Jevon Last MD as Referring Physician (Urology) Over [...] artery disease. He sees [facility]. He reports no chest pain, shortness of [...] a living will and healthcare power of collections attorney in place. Wishes to be full code. 9. Primary insomnia Stable, continue to monitor. Patient is here for follow up of the above chronic problems. I am following Dr. Block's established plan of care for these issues. Dr. Block was in the office suite today and is supervising patient care. documented in this encounter [facility] 11-22-2023 History of Present illness Narrative REASON [...] - No malignancy. 3 cores of CHIRAG. 08/25/2020:[place] 3+3, 2/12 cores 05/28/2019: [place] 3+3=6, 1/12 [...] Jevon Last MD documented in this encounter [facility] 11-22-2023 History of Present illness Narrative [...] PATIENT PRESENTS WITH AN IMPLANTABLE OR ATTACHED METAL PAINTER: No RADIOLOGY DEPARTMENT: MR; Exam(s) Completed: Body: Prostate PERIPHERAL IV DATA: Site assessment: Clean,Dry and Intact, Site disposition Discontinued SIGNED BY: RT Ar(R), Em BARRERA November 22, 2023 11:51 AM documented in this encounter [facility] 07-31-2023 History of Present illness Narrative [...] a left knee replacement. He follows with [facility] every 6 months and they are [...] Oral, Daily Cholecalciferol (Vitamin D) 50 MCG (2000 UT) capsule 1 capsule, Oral, Daily diclofenac [...] to diabetes. 4. 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) Doing well. [...] getting PSA checked regularly. 13. Morbid obesity (CMS/[facility]) Encouraged to eat a healthy diet and exercise regularly. 14. BMI 32.0-32.9,adult As above. Dr. Block was present in the office at the time of visit today and is supervising patient care. I am following Dr. Block's established plan of care for the above issues. documented in this encounter [facility] 05-30-2023 Note [facility] Cardiology Clinic Note Chief Complaint: Patient [...] disease, Diabetes mellitus (CMS/HCC), Factor V Leiden ([facility]), Family history of premature CAD, Family [...] Coronary atherosclerosis I25.10: Atherosclerotic heart disease of [place] coronary artery without angina pectoris 2. Abnormal findings diagnostic imaging heart+coronary circulat - Abnormal calcium score 99th percentile for age and gender and race R93.1: Abnormal findings on diagnostic imaging of heart and coronary circulation 3. Factor V Leiden mutation D68.51: Activated protein C resistance FACTOR V LEIDEN: CARE INSTRUCTIONS we will refer to [facility] hematology given history of 2 venous thromboembolic events; especially with his factor V Leiden deficiency; did not recommend lifelong anticoagulation 4. Dysli (more content not included)... [facility] 05-22-2023 History of Present illness Narrative VIRTUAL VISIT PROGRESS NOTE This is a virtual visit using Callystro Zoom Video Visit. It required patient-provider interaction for the medical decision making as documented below. I have communicated my name and active licensure. The patient's identity and physical location were verified at the time of this visit. Either the patient or their legal insurance service representative has been informed of the [...] - No malignancy. 3 cores of CHIRAG. 08/25/2020:[place] 3+3, 2/12 cores 05/28/2019: [place] 3+3=6, 1/12 cores PSA today: 10/29/2022 - [...] Jevon Last MD documented in this encounter [facility] 03-05-2023 Evaluation note Encounter Date Diagnosis [...] History of lumbar fusion (ICD-10 - Z98.1) [facility] Other 05-05-2023 History of Present illness Narrative* Mark Anthony Real MD - 10/26/2022 10:30 AM EDT REASON FOR VISIT: Follow up for Adenocarcinoma of Prostate I have communicated my name and active licensure. The patient's identity and physical location wereverified at the time of this visit. Either the patient or their legal insurance service representative has been informed of the risks and benefits of -- and alternatives to -- treatment through a remote evaluation andconsents to proceed with the evaluation remotely. HPI: 67 year old male with prostate cancer on . Prostate Biopsies: 04/12/22 - No malignancy. 3 cores of CHIRAG. 08/25/2020:[place] 3+3, 2/ cores 05/28/2019: [place] 3+3=6, 1/ cores PSA today: 10/03/2022 - [...] 1 tablet by mouth once daily. multivit-mins/iron/folic/lycop (MV,CA,WKD-YUMV-SM-LYCOPENE ORAL) Take 1 tablet by mouth once [...] 25, 2022 5:28 PM [facility] Miscellaneous Notes* Telephone Encounter - Mark Anthony Real MD - 04/20/2022 2:37 PM EDT I spoke with And Mrs. Benitez. Biopsy results are favorable. No malignancy noted. 3 cores of CHIRAG. We will continue with and recheck PSA in 6 months. Mark Anthony Real MD Department of Urology [employer] and Laparoscopy Fellow [facility] History of Present illness Narrative* Kim [...] Kim Saeed RN T [facility] Nurse Note* Kim Saeed RN - [...] This Education Session: None Instruction Provided To:Patient Screen Making Supervisor Present: not applicable Discipline: Nursing Learning Topic: Survival Skills: Complication Prevention Symptom Management Patient Evaluation: Verbalizes understanding: Yes Supplemental Material Given: Written Material Instructed By Kim Saeed RN In Department Urology . 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 MRI [...] reconstruction of the prostate gland using the 2CODE Online system. Trans-rectal ultrasound with a guide was [...] MD May 14, 2022, [facility] note* Encounter Date Diagnosis Assessment [...] History of lumbar fusion (ICD-10 - Z98.1) [facility] Other 08-31-2022 Miscellaneous Notes* Telephone Encounter - Mark Anthony Real MD - 02/21/2022 6:59 PM EDT Spoke with pt and his over the phone. We cannot accomodate 04/26 for TP biopsy. Offered 03/08, which does not work for the patient. We will move the date to 04/12/22. Mark Anthony Real MD Department of Urology Advanced Robotics and Laparoscopy Fellow [facility] Evaluation note* Encounter Date Diagnosis Assessment Notes Treatment Notes Treatment Clinical Notes Jan, Acute pain of left knee (ICD-10 - M25.56) Jan, Other We had a long discussion [...] follow-up with me on an as-needed basis. [facility] Other 06-02-2022 History of Present illness Narrative* Hugo Garcia MD - 11/23/2021 11:45 AM EDT VIRTUAL VISIT PROGRESS NOTE This is a virtual visit using Callystro video visit. It required patient-provider interaction for [...] 1 tablet by mouth once daily. multivit-mins/iron/folic/lycop (MV,CA,PDA-AFPU-GI-LYCOPENE ORAL) Take 1 tablet by mouth once [...] the direction and in the presence of uHgo Garcia M.D. Electronically Signed: Phong Busch. November [...] MD I spent more than 30 minutes [id number] with the patient and over half the time was devoted to counseling and/or coordination of care. [facility] NotePROCEDURE: XR ANKLE LT MIN 3 [...] Electronically authenticated by: KEN REGAN Date: 2021-11-02 11:06[facility]05-12-2022 NotePROCEDURE: XR ANKLE LT MIN 3 [...] Electronically authenticated by: KEN REGAN Date: 2021-11-02 11:06[facility]05-12-2022 NotePROCEDURE: XR FOOT RT MIN 3 [...] authenticated by: KEN REGAN Date: 2021-11-02 10:41[id number] History of Present illness Narrative* Annette Gar [...] 2021 TIME: 8:58 AM [facility] Diagnosis Malignant neoplasm of prostate (HCC) Malignant neoplasm of prostate documented in this encounter [facility] note* Diagnosis Prostate cancer (HCC) Malignant neoplasm of prostate [facility] noteNo assessment information availableL[facility] Work Phone: Evaluation note* Diagnosis Prostate cancer (HCC)- Primary Malignant neoplasm of prostate documented in this encounter [facility] note* Diagnosis Prostate cancer (HCC)- Primary Malignant neoplasm of prostate documented in this encounter [facility] note* Diagnosis Elevated PSA- Primary Elevated prostate specific antigen (PSA) [facility]* Diagnosis Prostate cancer (HCC)- Primary Malignant neoplasm of prostate documented in this encounter [facility] note* Diagnosis Prostate cancer (HCC)- Primary Malignant neoplasm of prostate documented in [facility] note* Diagnosis Essential (primary) hypertension (CMS/HCC)- Primary Unspecified essential hypertension Pure hypercholesterolemia (CMS/HCC) Pure hypercholesterolemia Prediabetes Other abnormal glucose 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) Gastroesophageal reflux [...] obesity BMI 32.0-32.9,adult [facility] Diagnosis Prostate cancer (HCC)- Primary Malignant neoplasm of prostate Elevated PSA Elevated prostate specific antigen (PSA) documented [facility]* Diagnosis Prostate cancer (HCC) Malignant neoplasm of prostate documented in this encounter [facility] note* Diagnosis Screening for genitourinary condition Screening for other and unspecified genitourinary condition documented in this encounter [facility] note* Diagnosis Acute pain of right shoulder- Primary Internal derangement of right shoulder [facility] Diagnosis Internal derangement of right shoulder- Primary [facility]* Diagnosis Essential hypertension (CMS/HCC)- Primary Unspecified essential hypertension 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) Prediabetes Other abnormal glucose Pure hypercholesterolemia (CMS/HCC) Pure hypercholesterolemia Generalized anxiety disorder (CMS/HCC) Generalized anxiety disorder Primary insomnia Persistent disorder of initiating or maintaining sleep Medicare annual wellness visit, subsequent ACP (advance care planning) Other specified counseling Prostate cancer screening Special screening for malignant neoplasm of prostate Osteopenia of multiple sites documented in this [facility]* Diagnosis Acute cough- Primary Bronchitis Bronchitis, not specified as acute or chronic Decreased breath sounds at right lung base documented in this encounter [facility]* Diagnosis Acute cough- Primary documented in this encounter [facility]* Diagnosis History of right knee joint replacement- Primary Acute pain of right knee Strain of right shoulder, initial encounter documented in this encounter [facility]* Diagnosis Acute cough documented in this encounter [facility]* Diagnosis Pure hypercholesterolemia (CMS/HCC)- Primary Pure hypercholesterolemia 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) Prediabetes Other abnormal glucose Generalized anxiety disorder (CMS/HCC) Generalized anxiety disorder Primary insomnia Persistent disorder of initiating or maintaining sleep Vitamin D deficiency History of malignant neoplasm of prostate Obesity (BMI 30.0-34.9) documented in this encounter [facility]* Diagnosis Acute bronchitis, unspecified organism- Primary documented in this encounter [facility]* Diagnosis Pain in right foot- Primary Pain in limb [facility]* Diagnosis Prostate cancer (HCC)- Primary Malignant neoplasm of prostate [facility]* Diagnosis Arthritis of right midfoot- Primary Peroneal tendinitis of lower leg, right [facility]* Diagnosis Pain in right foot Pain in limb [facility]* Diagnosis Peroneal tendonitis, right- Primary documented in this encounter [facility]* Diagnosis Peroneal tendonitis, right- Primary documented in this encounter [facility]* Diagnosis Peroneal tendonitis, right- Primary documented in this encounter [facility] HealthcareHistory general Narrative - Reported* Type Description Date Medical History Blood clots Medical History factor V Surgical History hammertoe repair Surgical History vasectomy Surgical History hammer toe Surgical History vasectomy 1998 Surgical History colonoscopy 2009 Surgical History fusion, lisfranc fracture aleks Quarles 05/2016 Surgical History EGD/Colonoscopy (normal- internal recruiter al hemorrhoids) 04/15/17 Surgical History PLIF (posterior lumbar interbod y fusion) 04/02/18 Surgical History Right Knee Replacement 2020 Hospitalization History see above [facility] Other Reason for visit Narrative* Rehabilitation - Outpatient (Routine) - Authorized Specialty Diagnoses / Procedures Referred By Contac t Referred To Contact Physical Therapy Diagnoses Peroneal tendinitis, right leg Procedures [place] PHYSICAL THERAPY EVALUATION HIGH COMPLEX 45 MINS [facility] [address] [place] [address] Phone: tel: fax: TERESITA Chambers Occupational Medicine [address] [place] [address] Phone: tel: fax: Referral ID Status Reason Start Date Expiration Date V isits Requested Visits Authorized [id number] Authorized 01/22/2025 07/21/2025 20 20 [facility] N[facility]* Rehabilitation - Outpatient (Routine) - Authorized Specialty Diagnoses / Procedures Referred By Contac t Referred To Contact Physical Therapy Diagnoses Peroneal tendinitis, right leg Procedures [place] PHYSICAL THERAPY EVALUATION HIGH COMPLEX 45 MINS [facility] [address] [place] [address] Phone: tel: fax: TERESITA Chambers Occupational Medicine [address] [place] [address] Phone: tel: fax: Referral ID Status Reason Start Date Expiration Date V isits Requested Visits Authorized [id number] Authorized 01/22/2025 06/23/2025 20 30 [facility] HealthcareReason for visit Narrative* Rehabilitation - Outpatient (Routine) - Authorized Specialty Diagnoses / Procedures Referred By Contac t Referred To Contact Physical Therapy Diagnoses Peroneal tendinitis, right leg Procedures [place] PHYSICAL THERAPY EVALUATION HIGH COMPLEX [address] [place] [address] [place] [address] Phone: tel: fax: [facility] [address] [place] [address] Phone: tel: fax: Referral ID Status Reason Start Date Expiration Date V isits Requested Visits Authorized [id number] Authorized 01/22/2025 06/23/2025 20 30 [facility] [...] MRI PELVIS W/WO CONTRAST Navin Redman MD [address] [place] [address] Mr Imaging Referral ID Status Reason Start Date Expiration Date V isits Requested Visits Authorized [id number] Closed Auto-Generate d Referral 10/02/2021 11/06/2021 1 1 Specialty Diagnoses / Procedures Referred By Genesis t Referred To Contact MR IMAGING Diagnoses Prostate cancer (HCC) Procedures MRI 3D POST PROCESSING 3D RENDERING W/INTERP&POSTPROC DIFF WORK STATION Jevon Last MD [address] [place] [id number] [address] [place] [address] Referral ID Status Reason Start Date Expiration Date Visits Requested Visits Authorized [id number] Pending Review Auto-Generat ed Referral 3 06/20/2024 1 1 Specialty Diagnoses / Procedures Referred By Genesis t Referred To Contact MR IMAGING Diagnoses Prostate cancer (HCC) Procedures MRI PROSTATE WO/W IVCON MRI PELVIS W/O & W/CONTRAST MATERIAL Jevon Last MD [address] [place] [address] [place] [address] Referral ID Status Reason Start Date Expiration Date Visits Requested Visits Authorized [id number] Pending Review Auto-Generat ed Referral 11/20/2023 06/20/2024 1 1 Referral ID Status Reason Start Date Expiration Date V isits Requested Visits Authorized [id number] Closed Auto-Generate d Referral 05/22/2023 06/20/2024 1 1 Referral ID Status Reason Start Date Expiration Date V isits Requested Visits Authorized [id number] Closed Auto-Generate d Referral 11/20/2023 06/20/2024 1 [...] section and content) DATE CREATED AUTHOR 12/18/2017 [facility] DATE CREATED AUTHOR AUTHOR'S ORGANIZ ATION 12/18/2017 [facility] DATE CREATED AUTHOR AUTHOR'S ORGANIZ ATION 06/14/2018 [facility] DATE CREATED AUTHOR AUTHOR'S ORGANIZ ATION [facility] DATE CREATED AUTHOR AUTHOR'S ORGANIZ ATION 10/13/[address] [facility] DATE CREATED AUTHOR AUTHOR'S ORGANIZ ATION 10/08/2022 [facility] DATE CREATED AUTHOR AUTHOR'S ORGANIZ ATION 03/06/2024 [facility] DATE CREATED AUTHOR AUTHOR'S ORGANIZ ATION 05/26/2024 [facility] DATE CREATED AUTHOR AUTHOR'S ORGANIZ ATION 01/22/2025 [facility] DATE CREATED AUTHOR AUTHOR'S ORGANIZ ATION 02/19/2025 [facility] EPIC Source Comments (unrecognize d section and content) In the event this informatio n is protected by the Federal Confidentiality of Alcohol and Drug Abuse Patient Records regulations: The Federal rules restrict any use of the information to criminally investigate or prosecute any alcohol or drug abuse patient.[facility] HospitalIn the event this information is protected by the Federal Confidentiality of Alcohol and Drug Abuse Patient Records regulations: The Federal rules restrict any use of the information to criminally investigate or prosecute any alcohol or drug abuse patient.[facility] HospitalIn the event this information is protected by the Federal Confidentiality of Alcohol and Drug Abuse Patient Records regulations: The Federal rules restrict any use of the information to criminally investigate or prosecute any alcohol or drug abuse patient.[facility] HospitalIn the event this information is protected by the Federal Confidentiality of Alcohol and Drug Abuse Patient Records regulations: The Federal rules restrict any use of the information to criminally investigate or prosecute any alcohol or drug abuse patient.[facility] HospitalIn the event this information is protected by the Federal Confidentiality of Alcohol and Drug Abuse Patient Records regulations: The Federal rules restrict any use of the information to criminally investigate or prosecute any alcohol or drug abuse patient.[facility] HospitalIn the event this information is protected by the Federal Confidentiality of Alcohol and Drug Abuse Patient Records regulations: The Federal rules restrict any use of the information to criminally investigate or prosecute any alcohol or drug abuse patient.[facility] HospitalIn the event this information is protected by the Federal Confidentiality of Alcohol and Drug Abuse Patient Records regulations: The Federal rules restrict any use of the information to criminally investigate or prosecute any alcohol or drug abuse patient.[facility] HospitalIn the event this information is protected by the Federal Confidentiality of Alcohol and Drug Abuse Patient Records regulations: The Federal rules restrict any use of the information to criminally investigate or prosecute any alcohol or drug abuse patient.[facility] HospitalIn the event this information is protected by the Federal Confidentiality of Alcohol and Drug Abuse Patient Records regulations: The Federal rules restrict any use of the information to criminally investigate or prosecute any alcohol or drug abuse patient.[facility] HospitalIn the event this information is protected by the Federal Confidentiality of Alcohol and Drug Abuse Patient Records regulations: The Federal rules restrict any use of the information to criminally investigate or prosecute any alcohol or drug abuse patient.[facility] HospitalIn the event this information is protected by the Federal Confidentiality of Alcohol and Drug Abuse Patient Records regulations: The Federal rules restrict any use of the information to criminally investigate or prosecute any alcohol or drug abuse patient.[facility] HospitalIn the event this information is protected by the Federal Confidentiality of Alcohol and Drug Abuse Patient Records regulations: The Federal rules restrict any use of the information to criminally investigate or prosecute any alcohol or drug abuse patient.[facility] HospitalIn the event this information is protected by the Federal Confidentiality of Alcohol and Drug Abuse Patient Records regulations: The Federal rules restrict any use of the information to criminally investigate or prosecute any alcohol or drug abuse patient.[facility] HospitalIn the event this information is protected by the Federal Confidentiality of Alcohol and Drug Abuse Patient Records regulations: The Federal rules restrict any use of the information to criminally investigate or prosecute any alcohol or drug abuse patient.[facility] HospitalIn the event this information is protected by the Federal Confidentiality of Alcohol and Drug Abuse Patient Records regulations: The Federal rules restrict any use of the information to criminally investigate or prosecute any alcohol or drug abuse patient.[facility] HospitalIn the event this information is protected by the Federal Confidentiality of Alcohol and Drug Abuse Patient Records regulations: The Federal rules restrict any use of the information to criminally investigate or prosecute any alcohol or drug abuse patient.[facility] Reason for Visit (unrecogniz ed section and content) Reason Comments Radiology MRI Specialty Diagnoses / Procedures Referred By Contac t Referred To Contact MR IMAGING Diagnoses Malignant neoplasm of prostate (HCC) Procedures MRI PROSTATE WO/W IVCON MRI PELVIS W/WO CONTRAST Navin Redman MD [address] [place] [address] Mr Imaging Referral ID Status Reason Start Date Expiration Date V isits Requested Visits Authorized [id number] Closed Auto-Generate d Referral 10/02/2021 11/06/2021 1 [...] W/O & W/CONTRAST MATERIAL Jevon Last MD [address] [place] [address] Mr Imaging [place] [address] Referral ID Status Reason Start Date Expiration Date V isits Requested Visits Authorized [id number] Closed Auto-Generate d Referral 11/20/2023 06/20/2024 1 1 Reason Comments Pain Specialty Diagnoses / Procedures Referred By Contac t Referred To Contact Orthopaedic Surgery Diagnoses Acute pain of right shoulder Annette Block MD [address] [address] Phone: tel: fax: Jr. Yeimi Cardenas DO [address] [facility] [address] [place] [address] Phone: tel: fax: Referral ID Status Reason Start Date Expiration Date V isits Requested Visits Authorized [id number] Closed Consult and Treat 04/06/2024 10/03/2024 1 1 Reason Comments Pain Reason Onset Date Comments dentist 05/11/2024 Reason Comments 6 Month Follow-up Medicare Annual Wellness Visit Apolinar t Reason Comments URI Patient is here [...] XR Specialty Diagnoses / Procedures Referred By Contsara t Referred To Contact XR IMAGING Diagnoses Pain in right foot Procedures XR FOOT GENERAL 3V AP/LAT/OBL RIGHT RADEX FOOT COMPLETE MINIMUM [address] [place] [address] [place] [address] Phone: tel: fax: [place] [address] Referral ID Status Reason Start Date Expiration Date V isits Requested Visits Authorized [id number] Closed Auto-Generate d Referral 01/19/2025 02/18/2026 1 1 Care Teams (unrecognized sec tion and content) Client Relation Specialist Relationship Specialty Start Date End Date Annette Block MD [address] [facility] [address] [place] [address] PCP - General Internal Medicine 02/21/18 Client Relation Specialist Relationship Specialty Start Date End Date Annette Block MD [address] [facility] [address] [place] [address] PCP - General Internal Medicine 02/21/18 Client Relation Specialist Relationship Specialty Start Date End Date Annette Block MD [address] [facility] [address] [place] [address] PCP - General Internal Medicine 02/21/18 Team Status: Inactive Member Role Status Dates Annette Block MD Primary Care Provider Active Annette Callaway II, MD Attending Provider Active Team Status: Active Member Role Status Dates Annette Block MD Primary Care Provider Active Team Status: Inactive Member Role Status Dates Annette Block MD Primary Care Provider Active Preston Tejada MD Attending Provider Active Client Relation Specialist Relationship Specialty Start Date End Date Annette Block MD [address] [place] [address] PCP - General Internal Medicine 02/21/18 Client Relation Specialist Relationship Specialty Start Date End Date Annette Block MD [address] [place] [address] PCP - General Internal Medicine 02/21/18 Client Relation Specialist Relationship Specialty Start Date End Date Annette Block MD [address] [place] [address] PCP - General Internal Medicine 02/21/18 Client Relation Specialist Relationship Specialty Start Date End Date Annette Block MD [address] [place] [address] PCP - General Internal Medicine 02/21/18 Client Relation Specialist Relationship Specialty Start Date End Date Annette Block MD [address] [place] [address] PCP - General Internal Medicine 11/16/22 Mark Anthony Drake MD [address] [place] [address] Urology 01/15/23 Client Relation Specialist Relationship Specialty Start Date End Date Annette Block MD [address] [place] [address] PCP - General Internal Medicine 11/16/22 Mark Anthony Drake MD [address] [place] [address] Urology 01/15/23 Client Relation Specialist Relationship Specialty Start Date End Date Annette Block MD [address] [place] [address] PCP - General Internal Medicine 02/21/18 Client Relation Specialist Relationship Specialty Start Date End Date Annette Block MD [address] [place] [address] PCP - General Internal Medicine 02/21/18 Client Relation Specialist Relationship Specialty Start Date End Date Annette Block MD [address] [place] [address] PCP - General Internal Medicine 02/21/18 Client Relation Specialist Relationship Specialty Start Date End Date Annette Block MD [address] [place] [address] PCP - General Internal Medicine 02/21/18 Team Status: Inactive Member Role Status Dates Annette Block MD Primary Care Provider Active St art: March 04, 2024 End: March 04, 2024 Preston Tejada MD Attending Provider Active Star t: March 04, 2024 End: March 04, 2024 Client Relation Specialist Relationship Specialty Start Date End Date Annette Block MD [address] [place] [address] PCP - General Internal Medicine 11/16/22 Jevon Last MD [address] [place] [address] Referring Physician Urology 01/28/24 Ron Hartley, OD [facility]4 [place] [address] Referring Physician Optometry 02/13/24 Mark Anthony Drake MD [address] [place] [address] Urology 01/15/23 [facility] 02/13/24 Client Relation Specialist Relationship Specialty Start Date End Date Annette Block MD [address] [facility] [place] [address] PCP - General Internal Medicine 11/16/22 Jevon Last MD [address] [place] [address] Referring Physician Urology 01/28/24 Ron Hartley, OD [address] [place] [address] Referring Physician Optometry 02/13/24 Mark Anthony Drake MD [address] [place] [address] Urology 01/15/23 [facility] 02/13/24 Client Relation Specialist Relationship Specialty Start Date End Date Annette Block MD [facility] [place] [address] PCP - General Internal Medicine 11/16/22 Jevon Last MD [address] [place] [address] Referring Physician Urology 01/28/24 Ron Hartley, OD [address] [place] [address] Referring Physician Optometry 02/13/24 Mark Anthony Drake MD [address] [place] [address] Urology 01/15/23 [facility] 02/13/24 Client Relation Specialist Relationship Specialty Start Date End Date Annette Block MD [address] [address] PCP - General Internal Medicine 11/16/22 Jevon Last MD [address] [place] [address] Referring Physician Urology 01/28/24 Ron Hartley, OD [address] [place] [address] Referring Physician Optometry 02/13/24 Mark Anthony Drake MD [address] [place] [address] Urology 01/15/23 [facility] 02/13/24 Client Relation Specialist Relationship Specialty Start Date End Date Annette Block MD [address] [place] [address] PCP - General Internal Medicine 11/16/22 Jevon Last MD [address] [place] [address] Referring Physician Urology 01/28/24 Ron Hartley, OD [facility]4 [place] [address] Referring Physician Optometry 02/13/24 Mark Anthony Drake MD [address] [place] [address] Urology 01/15/23 [facility] 02/13/24 Client Relation Specialist Relationship Specialty Start Date End Date Annette Block MD [address] [place] [address] PCP - General Internal Medicine 11/16/22 Jevon Last MD [address] [place] [address] Referring Physician Urology 01/28/24 Mark Anthony Drake MD [address] [place] [address] Urology 01/15/23 Client Relation Specialist Relationship Specialty Start Date End Date Annette Block MD [address] [place] [address] PCP - General Internal Medicine 11/16/22 Jevon Last MD [address] [place] [address] Referring Physician Urology 01/28/24 Mark Anthony Drake MD [address] [place] [address] Urology 01/15/23 [facility] 02/13/24 Client Relation Specialist Relationship Specialty Start Date End Date Annette Block MD [address] [place] [address] PCP - General Internal Medicine 11/16/22 Jevon Last MD [address] [place] [address] Referring Physician Urology 01/28/24 Ron Hartley, OD [address] [place] [address] Referring Physician Optometry 02/13/24 Mark Anthony Drake MD [address] [place] [address] Urology 01/15/23 [facility] 02/13/24 Client Relation Specialist Relationship Specialty Start Date End Date Annette Block MD [address] [place] [address] PCP - General Internal Medicine 11/16/22 Jevon Last MD [address] [place] [address] Referring Physician Urology 01/28/24 Ron Hartley, OD [address] [place] [address] Referring Physician Optometry 02/13/24 Mark Anthony Drake MD [address] [place] [address] Urology 01/15/23 [facility] 02/13/24 Client Relation Specialist Relationship Specialty Start Date End Date Annette Block MD [address] [place] [address] PCP - General Internal Medicine 11/16/22 Yudy Gupta CAPTAIN WAITER [address] [place], [place] [address] PCP - ACO Reach 07/31/24 Jevon Last MD [address] [place] [address] Referring Physician Urology 01/28/24 Ron Hartley, OD [facility]4 [place] [address] Referring Physician Optometry 02/13/24 Mark Anthony Drake MD [address] [place] [address] Urology 01/15/23 [facility] 02/13/24 Client Relation Specialist Relationship Specialty Start Date End Date Annette Block MD [facility]4 [place] [address] PCP - General Internal Medicine 11/16/22 Yudy Gupta CAPTAIN WAITER [address] [address] PCP - ACO Reach 07/31/24 Jevon Last MD [address] [place] [address] Referring Physician Urology 01/28/24 Ron Hartley, OD [facility]4 [place] [address] Referring Physician Optometry 02/13/24 Mark Anthony Drake MD [address] [place], [place] [address] Urology 01/15/23 [facility] 02/13/24 Client Relation Specialist Relationship Specialty Start Date End Date Annette Block MD [address] [place] [address] PCP - General Internal Medicine 11/16/22 Yudy Gupta, CAPTAIN WAITER [address] [facility] [address] [place] [address] PCP - ACO Reach 07/31/24 Jevon Last MD [address] [place] [address] Referring Physician Urology 01/28/24 Ron Hartley, OD [address] [place] [address] Referring Physician Optometry 02/13/24 Mark Anthony Drake MD [address] [place] [address] Urology 01/15/23 [facility] 02/13/24 Client Relation Specialist Relationship Specialty Start Date End Date Annette Block MD [address] [place] [address] PCP - General Internal Medicine 11/16/22 Yudy Gupta NP [address] [facility] [address] [place] [address] PCP - ACO Reach 07/31/24 Jevon Last MD [address] [place] [address] Referring Physician Urology 01/28/24 Ron Hartley, OD [address] [place] [address] Referring Physician Optometry 02/13/24 Mark Anthony Drake MD [address] [place] [address] Urology 01/15/23 [facility] 02/13/24 Client Relation Specialist Relationship Specialty Start Date End Date Annette Block MD [address] [place] [address] PCP - General Internal Medicine 02/21/18 Client Relation Specialist Relationship Specialty Start Date End Date Annette Block MD [address] [place] [address] PCP - General Internal Medicine 02/21/18 Client Relation Specialist Relationship Specialty Start Date End Date Annette Block MD [address] [place] [address] PCP - General Internal Medicine 02/21/18 Client Relation Specialist Relationship Specialty Start Date End Date Annette Block MD [address] [place] [address] PCP - General Internal Medicine 11/16/22 Yudy Gupta, CAPTAIN WAITER [address] [place] [address] PCP - ACO Reach 07/31/24 Jevon Last MD [address] [place] [address] Referring Physician Urology 01/28/24 Ron Hartley, VARUN [facility]4 [place] [address] Referring Physician Optometry 02/13/24 Mark Anthony Drake MD [address] [place] [address] Urology 01/15/23 [facility] 02/13/24 Client Relation Specialist Relationship Specialty Start Date End Date Annette Block MD [address] [place] [address] PCP - General Internal Medicine 11/16/22 Yudy Gupta, CAPTAIN WAITER [address] [place] [address] PCP - ACO Reach 07/31/24 Jevon Last MD [address] [place] [address] Referring Physician Urology 01/28/24 Ron Hartley, OD [address] [place] [address] Referring Physician Optometry 02/13/24 Mark Anthony Drake MD [address] [place] [address] Urology 01/15/23 [facility] 02/13/24 Client Relation Specialist Relationship Specialty Start Date End Date Annette Block MD [address] [place] [address] PCP - General Internal Medicine 11/16/22 Yudy Gupta, CAPTAIN WAITER [address] [place] [address] PCP - ACO Reach 07/31/24 Jevon Last MD [address] [place] [address] Referring Physician Urology 01/28/24 Ron Hartley, OD [address] [place] [address] Referring Physician Optometry 02/13/24 Mark Anthony Drake MD [address] [place] [address] Urology 01/15/23 [facility] 02/13/24 Client Relation Specialist Relationship Specialty Start Date End Date Annette Block MD [address] [place] [address] PCP - General Internal Medicine 11/16/22 Yudy Gupta CAPTAIN WAITER [address] [place] [address] PCP - ACO Reach 07/31/24 Jevon Last MD [address] [place] [address] Referring Physician Urology 01/28/24 Ron Hartley, OD [address] [place] [address] Referring Physician Optometry 02/13/24 Mark Anthony Drake MD [address] [place] [address] Urology 01/15/23 [facility] 02/13/24 Client Relation Specialist Relationship Specialty Start Date End Date Annette Block MD [address] [place] [address] PCP - General Internal Medicine 11/16/22 Yudy Gupta CAPTAIN WAITER [address] [place] [address] PCP - ACO Reach 07/31/24 Jevon Last MD [address] [place] [address] Referring Physician Urology 01/28/24 Ron Hartley, OD [address] [place] [address] Referring Physician Optometry 02/13/24 Mark Anthony Drake MD [address] [place] [address] Urology 01/15/23 [facility] 02/13/24 Client Relation Specialist Relationship Specialty Start Date End Date Annette Block MD [address] [place] [address] PCP - General Internal Medicine 11/16/22 Yudy Gupta, CAPTAIN WAITER [address] [address] PCP - ACO Reach 07/31/24 Jevon Last MD [address] [place] [address] Referring Physician Urology 01/28/24 Ron Hartley, OD [address] [place] [address] Referring Physician Optometry 02/13/24 Mark Anthony Drake MD [address] [place] [address] Urology 01/15/23 [facility] 02/13/24 Goals (unrecognized section and content) Goals [...] BE BASED ON THE PRIMARY CLINICAL RECORDS. [facility] bettermarks [facility]. provides no warranty or guarantee of the accuracy or completeness of information in this document.
[2025-02-20 07:49] LABS: Hematocrit 42.6 % (42.0-54.0); Hemoglobin 14.5 g/dL (14.0-18.0); Immature Granulocytes Abs Auto 0.03 10^3/uL (0.00-0.03); Immature Granulocytes Pct Auto 0.4 % (0.0-0.5); Lymphocytes Absolute Auto 1.6 10^3/uL (1.2-3.8); Mean Corpuscular HGB Conc 34.0 g/dL (29.9-35.2); Mean Corpuscular Hemoglobin 32.2 pg (25.9-34.0); Mean Corpuscular Volume 94.7 fL (80.0-94.0); Platelet Count 227 10^3/uL (150-450); Red Blood Count 4.50 10^6/uL (4.70-6.10); White Blood Count 7.1 10^3/uL (4.0-11.0)
[2025-02-20 09:05] LABS: Alanine Aminotransferase 37 U/L (16-63); Albumin Globulin Ratio 1.1; Albumin Level 3.7 g/dL (3.4-5.0); Alkaline Phosphatase 66 U/L (46-116); Anion Gap 10.4; Aspartate Amino Transferase 26 U/L (15-37); Blood Urea Nitrogen 14.0 mg/dL (7.0-18.0); Calcium 8.8 mg/dL (8.5-10.1); Carbon Dioxide 32.9 mmol/L (21.0-32.0); Chloride 104 mmol/L (98-107); Cholesterol 152 mg/dL (<=200); Estimated GFR (African America >60 (>=60 mL/min/1.73m^2); Estimated GFR (Non-African Ame >60 (>=60 mL/min/1.73m^2); Globulin 3.3 g/dL; Glucose 109 mg/dL (74-106); HDL Cholesterol 51 mg/dL (40-60); Potassium 4.3 mmol/L (3.5-5.1); Sodium 143 mmol/L (136-145); Total Protein 7.0 g/dL (6.4-8.2); Triglycerides 91 mg/dL (<=150); VLDL CHOLESTEROL 18.2 mg/dL
== END 2025-02-20 07:31 | disposition home or self-care (01) ==
LOC: LAB 07:30
PROVIDERS: PCP Internal Medicine; Visit Provider Internal Medicine
DX: E78.00 Pure hypercholesterolemia, unspecified (principal); E55.9 Vitamin D deficiency, unspecified
CPT/HCPCS: 36415; 80053; 80061; 82306; 85025

== ENCOUNTER 2025-04-26 06:59 | Outpatient (OUT) | payer MEDICARE, OTHER, SELFPAY ==
--- NOTE | 2025-04-26 07:00 | CA_ITS ---
Patient Name: BASILIO PARRA MR#: [id number] : 1955 Exam Date: 04/26/2025 Ordering Doctor: DR OTF ROOT M.D. ECHOCARDIOGRAM REPORT PROCEDURE: CA ECHO DOPPLER COMPLETE INDICATIONS: Mitral valve regurgitation COMPARISON: None. DESCRIPTION: COMPLETE ECHOCARDIOGRAM Real-time transthoracic echocardiography with 2D, M-mode, spectral and color flow Doppler performed. QUALITY: Technical quality was good. LEFT VENTRICLE: Normal chamber size. Mild concentric left ventricular hypertrophy. Estimated left ventricular ejection fraction is 55-60% LV EF: Normal left ventricular ejection fraction, (>55%). DIASTOLIC: Normal diastolic function. ATRIAL SEPTUM: Visually appears intact. LEFT ATRIUM: Normal chamber size. RIGHT ATRIUM: Normal chamber size. RIGHT VENTRICLE: Normal chamber size. Normal right ventricular systolic function. TRICUSPID VALVE: Normal mobility and thickness. No stenosis with no regurgitation. No evidence of pulmonary hypertension. RVSP 18 mmHg MITRAL VALVE: Mildly thickened with normal mobility. No evidence of mitral valve stenosis. There is no mitral annular calcification. No mitral regurgitation. AORTIC VALVE: Normal trileaflet appearance. No visible sclerosis. Normal leaflet mobility. No evidence of aortic valve stenosis. No aortic regurgitation. AORTIC ROOT: Normal diameter and appearance, measuring 3.5 cm. PULMONIC VALVE: Normal thickness and mobility. No stenosis. Trivial regurgitation. PERICARDIUM: No evidence of pericardial effusion. IVC: Collapses with inspirations. IVC is normal in size. PLEURA: CONCLUSION: 1. Mild concentric left ventricular hypertrophy with normal systolic function. Estimated LVEF is 55 to 60%. 2. Normal right ventricular size and systolic function. 3. Normal diastolic function. 4. No significant valvular dysfunction. 5. Normal right-sided pressures. Adult Echocardiography Procedure Report Left Ventricle LVEDD (3.7 - 5.6 cm): 4.61 cm LVESD (2.2 - 4.0 cm): 3.72 cm LVIVS thickness (0.6 - 1.2 cm): 1.05 cm LVPW thickness (0.5 - 1.0 cm): 1.26 cm e': 0.08 m/s E - e': 6.39 LVOT Max Gradient: 1.40 mm[Hg] LVOT Area (cm2): 0.59 m/s Peak Velocity (LVOT): 0.59 m/s Mean Velocity (LVOT): 0.39 m/s LVOT Diameter 2.59 cm Left Ventricular Ejection Fraction: 55-60 % Left Atrium LA Volume Index (2D A2C): 27.47 ml/m2 Left Atrium Systolic Dimension: 3.92 cm Mitral Valve MV E to A Ratio: 0.66 Mitral Valve A-Wave Peak Velocity: 0.75 m/s Mitral Valve E-Wave Peak Velocity: 0.50 m/s Right Ventricle Aorta AO Root Diam: 3.51 cm Aortic Valve AoV Area (Peak Con): 3.40 cm2, 3.40 cm2 AoV Area (VTI): 3.66 cm2, 3.66 cm2 Peak Velocity(Antegrade Flow): 0.92 m/s Peak Gradient(Antegrade Flow): 3.36 mm[Hg] Mean Velocity(Antegrade Flow): 0.61 m/s Mean Gradient(Antegrade Flow): 1.70 mm[Hg] Velocity Time Integral: 19.59 cm Tricuspid Valve Peak Velocity (Regurgitant Flow): 1.94 m/s Pulmonic Valve Mean Gradient: 2.61 mm[Hg] Mean Velocity: 0.73 m/s Peak Velocity: 1.32 m/s Peak Gradient: 6.92 mm[Hg] Right Atrium Right Atrium Systolic Pressure: 48.73 ml, 48.73 ml Dictated by: Eliezer Henriquez M.D. on 04/26/2025 at 12:50 Approved by: Eliezer Henriquez M.D. on 04/26/2025 at 12:54
--- OUTSIDE RECORDS SUMMARY | 2025-04-26 07:03 | XMS_ITS | Encounter Summary ---
Author Organization [facility] Address [address] [place] [address] Care Team Providers Care Toddler Nanny Name Role Phone Dominic Block MD Primary Care Provider [phone] Jevon Last MD Unavailable Unavailable Ron Hartley OD Unavailable [phone]/MEDICAL INTERPRETER Unavailable [phone] Encounter Details DateTypeDepartmentCare Team (Latest Contact Info)Upedmvjeuqd08/31/2024Clinisync Result Encounter [facility] Unsolicited Provider, Generic External Data Social History Tobacco UseTypesPacks/DayYears UsedDateSmoking Tobacco: NeverSmokeless Tobacco: NeverAlcohol UseStandard Drinks/WeekCommentsYes1 (1 standard drink = 0.6 oz pure alcohol)Caffeine: 2 cups dailyPHQ-2AnswerDate RecordedPatient Health Questionnaire-2 [id number] and Gender InformationValueDate RecordedSex Assigned at BirthNot on fileLegal OayCrbd6709/05/2022 7:06 PM EDTGender Identity Not on fileSexual OrientationNot on fileOccupationIndustryJob Start DateJob End Datebuild custom race enginesNot on fileNot on fileNot on filedocumented as of this encounter Functional Status * Over the past 2 weeks, how often have you been bothered by any of the following problems?QuestionAnswerDate of AssessmentAuthorLittle interest or pleasure in doing thingsNot at all02/23/2025 9:00 AM Regina Velazco MA Feeling down, depressed, or hopelessNot at all02/23/2025 9:00 AM Regina Velazco MAPatient Health Questionnaire-2 [id number] 9:00 AM Regina Velazco MA documented as of this encounter Plan of Treatment DateTypeDepartmentCare Team (Latest Contact Info)Pymzbujfudx45/28/2026 8:00 AM ESTOffice Visit [facility] [address] [place] [phone] Jr. Eliezer Cardenas, [address] [facility] [address] [place] [address] 08/25/2025 9:15 AM ESTOffice Visit [facility] [address] [place] [address] documented as of this encounter Procedures Procedure NamePriorityDate/TimeAssociated DiagnosisCommentsMRI PROSTATE WO/W IVCON11/22/2023 12:16 PM EDT documented in this encounter Results * MRI PROSTATE WO/W IVCON (11/22/2023 12:16 PM EDT)Anatomical RegionLaterality ModalityOtherSpecimen (Source)Anatomical Location / LateralityCollection Method / VolumeCollection TimeReceived Time11/22/2023 12:16 PM EDT Narrative 11/22/2023 3:22 PM EDT * * *Final Report* * * DATE OF EXAM: Nov 22 2023 12:16PM ?? QBM ?? [id number] ??- ??MRI PROSTATE WO/W IVCON ??/ PROCEDURE REASON: Prostate cancer (HCC) ? * * * * Physician Interpretation * * * * EXAMINATION: MRI PELVIS WITHOUT AND WITH IV CONTRAST (MULTIPARAMETRIC PROSTATE MRI) CLINICAL HISTORY: 68 years old with prostate cancer on active surveillance. Previous biopsy: Positive, Grade Group 1 (GS 3 + 3) 08/25/2020. ??More recent biopsy 04/12/2022 showed no malignancy. PSA: 1.22 ng/mL (11/15/2023) ; Prior therapy: None. PQ: 3-3-3-5 TECHNIQUE: Multiparametric MRI of the prostate and pelvis performed on a 3T scanner utilizing phase pelvic coil. ??Sequences obtained: multiplanar T2-WI with small FOV; Axial DWI with multiple B-values and creation of ADC-maps; DCE T1-weighted images through the prostate obtained before, during and after the administration of intravenous gadolinium; prostate dimensions and volume were obtained using a semi-automated software ([employer]). THREE-DIMENSIONAL IMAGIND imaging including complex volumetric analysis of the prostate was created on a dedicated stand-alone workstation ([employer])by the interpreting physician, with images reviewed and [...] 3 Note: Similar to the prior study. ??Probably slight asymmetric thickening of the central zone. [...] Clinically significant cancer is highly likely (V.) Pump Stitcher: PSCB ?? Transcribe Date/Time: Nov 22 2023 ??1:34P Dictated by : ALEXIA MOY MD This examination was interpreted and the report reviewed and electronically signed by: LORENZO HEBERT MD on Nov 22 2023 ??3:20PM ??EST [id number]^ACN Procedure Note Radiology, Radiologist, - 11/22/2023 * * *Final Report* * [...] volume were obtained using a semi-automated software ([employer]). THREE-DIMENSIONAL IMAGIND imaging including complex volumetric analysis of the prostate was created on a dedicated stand-alone workstation ([employer])by the interpreting physician, with images reviewed and [...] Clinically significant cancer is highly likely (V.) Pump Stitcher: LIZETTE Transcribe Date/Time: Nov 22 2023 1:34P Dictated by : ALEXIA MOY MD This examination was interpreted and the report reviewed and electronically signed by: LORENZO HEBERT MD on Nov 22 2023 3:20PM EST [id number]^SI^ACN Authorizing ProviderResult TypeResult StatusGeneric External Data Provider CLINISYNC IMAGINGFinal Result documented in this encounter Visit Diagnoses Not on filedocumented in this encounter Care Teams Team MemberRelationshipSpecialtyStart DateEnd Date Dominic Block MD [address] [place] [id number] PCP - GeneralInternal Medicine11/16/22 Yudy Gupta NP [address] [place] [address] PCP - ACO Reach07/31/24 Jevon Last MD [address] [place] [address] Referring PhysicianUrology01/28/24 Ron Hartley, OD [address] [place] [address] Referring PhysicianOptometry02/13/24 Mark Anthony Drake MD [address] [place] [address] Urology01/15/23 [facility]02/13/24documented as of this encounter
--- OUTSIDE RECORDS SUMMARY | 2025-04-26 07:03 | XMS_ITS | CCD ---
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 Name Role Phone ANNETTE BLOCK Unavailable Unavailable ANNETTE BLOCK Unavailable Unavailable Horn, Erin Unavailable Unavailable Rei, Erin Unavailable Unavailable GEORGE DOS SANTOS Unavailable Unavailable ANNETTE BLOCK Primary Care Unavailable ANNETTE BLOCK Referring Unavailable BERRY FISHER Admitting Unavailable BERRY FISHER Attending Unavailable Annette Block MD Primary Care Provider Annette Callaway II Unavailable [phone] Annette Block MD Primary Care Provider MD [...] Unavailable UMAIR, DR BRYANT Primary Care Unavailable RIVERVIEW, DR KEN Dunlap Consulting Unavailable JACE, RON [...] UMAIR, DR BRYANT Primary Care Unavailable REQUEST, NONE LISTED Consulting Unavaila Annette Alonzo MD Primary Care Provider [phone] Annette Block MD Primary Care Provider [phone] MD Annette Block Primary Care Provider [phone] MD Preston Tejada Attending Provider Jevon Last MD Unavailable Ron Hartley OD Unavailable [phone] CHALINO FISHERAB Attending Unavailable BERRY FISHER Attending Unavailable Risaliti SHEET METAL LAYOUT WORKER, Yudy R Unavailable Jevon Last MD Unavailable Unavailable JR. CARDENAS GEORGE C Attending Unavaila briana CARDENAS JR., YEIMI Otero Referring Unavaila ble ANNETTE BLOCK Attending Unavailable MARCO ANTONIO AMANDA Attending Unavailable MARY COFFEY Attending Unavailable CADENCE, BOB Referring Unavailable MARY COFFEY Attending Unavailable JR. RONALD, YEIMI Otero Attending Unavaila ble ANNETTE BLOCK Referring Unavailable JR RONALD., YEIMI Otero Referring Unavaila ble STEPJENS, JR., YEIMI Otero Referring Unavaila ble MARY COFFEY Attending Unavailable CADENCE, BOB Referring Unavailable DARRELLNERMARY ALLISON Attending Unavailable CADENCE, BOB Referring Unavailable FINNERANMARY Attending Unavailable CADENCE, BOB Referring Unavailable RISALIYUDY LU R Attending Unavailable MARY COFFEY Attending Unavailable CADENCE BOB Referring Unavailable JR. RONALD, YEIMI Otero Attending Unavaila ble ANNETTE BLOCK Referring Unavailable DOMINGO SILVA Attending Unavailable DOMINGO SILVA Referring Unavailable Annette Block MD Primary Care Provider Preston Tejada MD Attending Provider [phone] Preston Tejada Attending Unavailable Preston Tejada Admitting Unavailable Annette Block Primary Care Unavailable ANNETTE BLOCK Primary Care Unavailable DARRYL SINCLAIR Attending Unavailable BOB JIM Referring Unavailable ANNETTE BLOCK Primary Care Unavailable ANNETTE BLOCK Primary Care Unavailable BOB JIM Attending Unavailable ANNETTE BLOCK Primary Care Unavailable BOB JIM Attending Unavailable Annette Block MD Primary Care Provider Jevon Last MD Unavailable Unavailable Medications Current Medications MedicationDrug Class(es)DatesSig (Normalized)Sig (Original)acetaminophen 500 mg oral tablet (20 sources)Start: 00-41-2773evqq 2 tablets by mouth twice daily as needed for painAcetaminophen (Acetaminophen Extra Strength) 500 mg Tablet Active 1000 MG PO Twice daily as needed for Pain March 26, 2018 12:00am On Hold: Resume on 04/30/20. Complies with drug therapyacetaminophen (Tylenol Extra Strength) 500 MG tablet every 6 (six) hours. ActiveALPRAZolam 0.25 mg oral tablet (20 sources)BenzodiazepineStart: 43-44-9906zwvd 1 tablet by mouth once daily ALPRAZolam (XANAX) 0.25 mg tablet Take 1 tablet by mouth once daily. 07/23/2019 ActiveStart: 42-13-4922tgoj 1 tablet by mouth twice daily as needed for anxiety Alprazolam (Xanax) 0.25 mg Tablet Active 0.25 MG PO Twice daily as needed for Anxiety March 12:00am On Hold: Resume on 04/30/20. Complies with drug therapyStart: 04-15-2017 End: 24-49-5200pvyf 1 tablet by mouth twice daily as needed for anxiety Alprazolam 0.25 mg tablet Discontinued 0.25 MG PO Twice daily as needed for Anxiety April 15, 2017 12:00am April 02, 2018 2:56pmtake 1 tablet by mouth twice daily as needed for anxietyALPRAZolam (Xanax) 0.5 MG tablet Take 0.5 mg by mouth 2 (two) times a day as needed for anxiety. ActiveComment on above: Take 1 tablet by mouth once daily.ascorbic acid 250 mg chewable tablet (8 sources)Vitamin CStart: 63-61-9480pjaa 1 tablet by mouth once dailyAscorbic Acid (Vitamin C) (Vitamin C) 250 mg Tablet,Chewable Active 250 MG PO Daily March 24, 2020 12:00am Complies with drug therapyVitamin C Activeaspirin 81 mg delayed release oral tablet (20 sources)Platelet Aggregation Inhibitor, Nonsteroidal Anti-inflammatory Drug take 1 tablet by mouth in the morningaspirin 81 MG EC tablet Take 81 mg by mouth in the morning. ActiveAspirin 81 Activeatorvastatin 80 mg oral tablet (20 sources)HMG-CoA Reductase Inhibitortake 1 tablet by mouth at bedtime atorvastatin (Lipitor) 80 MG tablet Take 80 mg by mouth at bedtime. Active calcium carbonate 1500 mg oral tablet (20 sources)Start: 78-55-3322Ylbacye Carbonate (Calcium 600) 600 mg calcium (1,500 mg) Tablet Active 1200 MG PO Daily March 26, 2018 12:00am Complies with drug therapyCaltrate 600 ActiveComment on above:Take 1 tablet by mouth once daily.cetirizine hydrochloride 10 mg oral tablet (20 sources)Histamine-1 Receptor AntagonistStart: 12-71-9926ohdx 1 tablet by mouth once dailyCetirizine (Zyrtec) 10 mg Tablet Active 10 MG PO Daily April 15, 2017 12:00am Complies with drug therapyZyrtec 1 tab Oral ActiveComment on above:Take 10 mg by mouth once daily.cholecalciferol 0.05 mg oral capsule (20 sources)Vitamin DStart: 02-23-2025 End: 32-76-7010lcqw 2 capsules by mouth once dailyCholecalciferol (Vitamin D) 50 MCG (2000 UT) capsule Indications: Vitamin D deficiency Take 2 capsules (100 mcg) by mouth Daily 02/23/2025 ActiveStart: 81-87-2939vwry 1 tablet by mouth once dailyCholecalciferol (Vitamin D3) (Vitamin D3) 50 mcg (2,000 unit) Tablet Active 2000 UNIT PO Daily March 24, 2020 12:00am Complies with drug therapy chondroitin sulfates 200 mg / glucosamine hydrochloride 250 mg oral tablet (5 sources)Start: 89-10-6812hyqy 1 tablet by mouth once dailyGlucosamine- Chondroitin (Osteo Bi-Flex) 250-200 mg Tablet Active 1 TAB PO Daily March 24, 2020 12:00am Complies with drug therapycodeine phosphate 2 mg/ml / guaiFENesin 20 mg/ml oral solution (20 sources)Opioid AgonistStart: 08-21-2024 End: 27-10-1122zoccBMFildl-codeine (Robitussin-AC) 100-10 MG/5ML syrup Indications: Acute cough Take 5-10 mL by mouth 4 (four) times a day as needed for cough 200 mL 08/21/2024 02/23/2025 Discontinued (Therapy completed)Start: 07-01-2024 End: 56-89-6179buueRFAaufj-codeine (Robitussin-AC) 100-10 MG/5ML syrup Indications: Acute cough Take 5-10 mL by mouth 4 (four) times a day as needed for cough 200 mL 07/01/2024 08/18/2024 Discontinueddocusate sodium 100 mg oral capsule (20 sources)take 1 capsule by mouth in the morningdocusate sodium (Colace) 100 MG capsule Take 1 capsule by mouth in the morning and 1 capsule beforebedtime. ActiveComment on above:Take 100 mg by mouth twice daily.folic acid 1 mg / polysaccharide iron complex 150 mg / vitamin b12 0.025 mg oral capsule (5 sources)Vitamin E62Dyfxo: 75-17-7378gdxf 1 capsule by mouth once daily in the morningIron Ps Avzolgs-A23-Zsseg Acid (Poly-Iron 150 Forte) 150-25-1 mg-mcg-mg capsule Active 1 CAP PO Every morning March 24, 2020 12:00am Complies with drug therapyiv contrast (will be provided with radiology test) (1 source)Start: 05-22-2023 End: 11-57-2881as contrast (will be provided with radiology test) MRI Prostate Inject, intravenously, once for 1 dose. No IV access, insert saline lock prior to the beginning of sedation, infusion, injection of imaging exam. Discontinue saline lock post exam. If Pt. has a central line or IVAD, may access for admin istration according to line specific nursing protocol. Once exam is complete flush line and de-access according to line specific nursing protocol in the MR contrast administration guidelines link. 1 Each 0 05/22/2023 05/23/2023 Active Comment on above:MRI Prostate Inject, intravenously, once for 1 dose. [...] protocol in the MR contrast administration guidelines link.methocarbamol 750 mg oral tablet (2 sources)Muscle RelaxantStart: 03-12-2023 End: 62-98-2467hkxk 1 tablet by mouth three times daily as needed for muscle spasmsmethocarbamol (Robaxin) 750 MG tablet Indications: Spasm of muscle of lower back Take 1 tablet (750mg) by mouth 3 (three) times a day as needed for muscle spasms. 60 tablet 1 03/12/2023 07/31/2023 Nimykkccangv64 hr metoprolol succinate 25 mg extended release oral capsule (20 sources)beta-Adrenergic BlockerStart: 22-07-5846turdztdxij succinate 25 mg CSpX 11/18/2020 Activetake 1 tablet by mouth every twenty-four hours in the morningmetoprolol succinate XL (Toprol XL) 25 MG 24 hr tablet Take 25 mg by mouth in the morning. Activetake 1 tablet by mouth every twelve hoursMetoprolol Tartrate 25 MG 1 tablet with food Orally Twice a day ActiveMultiple Minerals- Vitamins (Citracal Plus) tablet (5 sources) End: 50-31-7568thpd 1 tablet by mouth in the morningMultiple Minerals-Vitamins (Citracal Plus) tablet Take 1 tablet by mouth in the morning. 02/13/2024 Discontinuedtake 1 tablet by mouth in the morningMultiple Minerals-Vitamins (Citracal Plus) tablet Take 1 tablet by mouth in the morning. Activetake 1 tablet by mouth in the morningMultiple Minerals-Vitamins (Citracal Plus) tablet Take 1 tablet by mouth in the morning. 0 ActiveMultivitamin preparation (3 sources)Multivitamin ActiveMv,Ca,Irb-Qady-Fg-Lycopene (Centrum Men) 8 mg iron- 200 mcg-600 mcg Tablet (5 sources)Start: 75-44-3152Qq,Ca,Jll-Evns-Lu-Lycopene (Centrum Men) 8 mg iron- 200 mcg-600 mcg Tablet Active 1 TAB PO Daily March 26, 2018 12:00am Complies with drug therapyStart: 92-82-2664Aolvx: 11-48-3498Xj,Ca,Tdk-Ggsp-Er-Lycopene (Centrum Men) 8 mg iron- 200 mcg-600 mcg Tablet Active 1 TAB PO Daily March 26, 2018 12:00amNut.Tx.Gluc.Intol,Lac-Free,Soy (Glucerna) Liquid (5 sources)Start: 67-17-2476Gnt.Tx.Gluc.Intol,Lac-Free,Soy (Glucerna) Liquid Active 1 EACH PO Daily March 24, 2020 12:00am Complies with drug therapy Start: 82-59-9644Uqnky: 30-37-5462Ecu.Tx.Gluc.Intol,Lac-Free,Soy (Glucerna) Liquid Active 1 EACH PO Daily March 24, 2020 12:00amomeprazole 20 mg delayed release oral capsule (20 sources)Proton Pump InhibitorStart: 06-22-4423rpyx 1 capsule by mouth once dailyOmeprazole 20 mg capsule,delayed release(DR/EC) Active 20 MG PO Daily April 07, 2020 12:00am Complies with drug therapytake 2 capsules by mouth every twenty-four hoursOmeprazole 20 MG 2 capsules Orally Once a day Active Comment on above:Take 20 mg by mouth once daily.OZEMPIC 0.25 mg or 0.5 mg (2 mg/3 mL) pen (8 sources)OZEMPIC 0.25 mg or 0.5 mg (2 mg/3 mL) pen Inject 0.25 mg subcutaneously one time a week. ActiveOZEMPIC 0.25 mg or 0.5 mg (2 mg/3 mL) pen Inject 0.25 mg subcutaneously one time a week. 0 Activepolyethylene glycol 3350 22901 mg powder for oral solution (20 sources)Osmotic Laxativetake 17 g by mouth every twenty-four hours as needed polyethylene glycol, PEG, 3350 (MiraLax) 17 GM/SCOOP powder Take 17 g by mouth Daily as needed. ActiveMiraLax ActiveComment on above:Take by mouth once daily. semaglutide (Ozempic, 1 MG/DOSE,) 4 MG/3ML solution pen-injector (20 sources)Start: 09-55-8032fqqnpvrwuzm (Ozempic, 1 MG/DOSE,) 4 MG/3ML solution pen-injector Indications: Controlled type 2 diabetes mellitus with complication, with long-term current use of insulin (HCC) , BMI 32.0-32.9,adult Inject 1 mg under the skin 1 (one) time per week 3 mL 08/20/2024 ActiveStart: 08-20-2024 semaglutide (Ozempic, 1 MG/DOSE,) 4 MG/3ML solution pen-injector Indications: Controlled type 2 diabetes mellitus with complication, with long-term current use of insulin ([facility]) , BMI 32.0-32.9,adult Inject 1 mg under the skin 1 (one) time per week 3 mL 08/20/2024 Activesennosides, nursing home 8.6 mg oral tablet (5 sources)Start: 79-88-2136yaed 1 tablet by mouth twice daily as needed for constipationSennosides (Senna) 8.6 mg Tablet Active 8.6 MG PO Twice daily as needed for Constipation December 12:00am Complies with drug therapy sildenafil 100 mg oral tablet (20 sources)Phosphodiesterase 5 InhibitorStart: 01-21-2019 End: 65-23-4967xbvp 1 tablet by mouth once daily as neededSildenafil (Viagra) 100 mg Tablet Active 100 MG PO Daily as needed for Sexual Activity March 24, 2020 12:00am Complies with drug therapyComment on above:Take 100 mg by mouth once daily.simvastatin 20 mg oral tablet (15 sources)HMG-CoA Reductase InhibitorStart: 04-15-2017 End: 71-36-6598ykhi 1 tablet by mouth once daily at bedtimeSimvastatin 20 mg tablet Active 20 MG PO Daily at bedtime April 15, 2017 12:00am Complies with drug therapyComment on above:Take 20 mg by mouth once daily.traMADol hydrochloride 50 mg oral tablet (4 sources)Opioid AgonistStart: 07-31-2023 End: 66-38-7214luml 1 tablet by mouth every eight hours for paintraMADol (Ultram) 50 MG tablet Indications: Primary osteoarthritis involving multiple joints Take 1tablet (50 mg) by mouth every 8 (eight) hours if needed for severe pain for up to 7 days 21 tablet 0 07/31/2023 08/07/2023 Activetake 1 tablet by mouth every six hourstraMADol HCl 50 MG 1 tablet as needed Orally every 6 hrs Activetriamcinolone acetonide 1 mg/ml topical cream (18 sources)CorticosteroidStart: 03-27-2022 End: 50-50-0333hscrjdcoejzsd (Kenalog) 0.1 % cream APPLY TO LOWER LEGS TWICE DAILY UNTIL CLEAR, THEN USE NEEDEDFOR ITCH 03/27/2022 07/01/2024 Discontinued Start: 81-62-8786Glqiydz -40 mg Aug,Vitamin D (3 sources)Vitamin D Activezolpidem tartrate 5 mg oral tablet (20 sources)gamma-Aminobutyric Acid-ergic AgonistStart: 71-06-4711exjynfnc (AMBIEN) 5 mg tablet Take 1 tablet by mouth as needed. 07/23/2019 ActiveStart: 30-99-6559iica 1 tablet by mouth once daily at bedtime as needed for sleep Zolpidem (Ambien) 10 mg Tablet Active 10 MG PO Daily at bedtime as needed for Sleep March 26, 2018 12:00am Complies with drug therapyComment on above:Take 1 tablet by mouth as needed. Completed/Discontinued Medications MedicationDrug Class(es)DatesSig (Normalized)Sig (Original)amoxicillin 500 mg oral capsule (5 sources)Penicillin-class AntibacterialStart: 11-22-2022 End: 37-94-8470gzssaujqmzb (Amoxil) 500 MG capsule Indications: Prophylactic antibiotic TAKE 4 CAPSULES BY MOUTH 45 MINUTES TO 1 HOUR PRIOR TO DENTAL PROCEDURE 4 capsule 3 11/22/2022 02/12/2024 Discontinuedazithromycin 250 mg oral tablet (20 sources)Macrolide AntimicrobialStart: 11-20-2024 End: 56-37-5728dniztmgponyb (Zithromax) 250 MG tablet Indications: Acute bronchitis, unspecified organism Z-Pack. Take 2 tablets on day 1, and one tablet per day on days 2-5. 6 tablet 11/20/2024 02/22/2025 DiscontinuedStart: 07-01-2024 End: 19-00-3405pdtrlcepayno (Zithromax) 250 MG tablet Indications: Bronchitis Take 2 tabs (500 mg) by mouth today,than 1 tab (250 mg) daily for 4 days. 6 tablet 07/01/2024 07/06/2024 Activebenzonatate 100 mg oral capsule (8 sources)Non-narcotic AntitussiveStart: 07-01-2024 End: 94-47-1813nwwk 1 capsule by mouth three times daily as needed for cough benzonatate (Tessalon) 100 MG capsule Indications: Acute cough Take 1 capsule (100 mg) by mouth 3 (three) times a day as needed for cough Do not crush or chew. 42 capsule 07/01/2024 08/18/2024 Discontinuedcephalexin 500 mg oral capsule (6 sources)Cephalosporin AntibacterialStart: 04-12-2022 End: 06-34-6700oompQIXKae 500 mg cap(s) (KEFLEX)Start: 04-03-2018 End: 59-48-7820lpet 1 capsule by mouth every eight hoursCephalexin (Keflex) 500 mg capsule Discontinued 500 MG PO Q8H 15 April 03, 2018 12:00am 2017 11:05amcyclobenzaprine hydrochloride 10 mg oral tablet (5 sources)Muscle RelaxantStart: 04-03-2018 End: 23-54-4027tgbn 1 tablet by mouth three times daily as needed for muscle spasmsCyclobenzaprine 10 mg tablet Discontinued 10 MG PO Three times daily as needed for back spasms April 03, 2018 12:00am March 24, 2020 11:39am diclofenac sodium 75 mg delayed release oral tablet (20 sources)Nonsteroidal Anti-inflammatory DrugStart: 04-16-2019 End: 78-44-6078mxfi 1 tablet by mouth twice dailyDiclofenac Sodium 75 mg tablet,delayed release (DR/EC) Discontinued 75 MG PO Twice daily March 24, 2020 12:00am April 09, 2020 11:07amDiclofenac ActiveComment on above:Take 1 tablet by mouth twice daily as needed.diclofenac sodium 75 mg / miSOPROStol 0.2 mg delayed release oral tablet (5 sources)Nonsteroidal Anti-inflammatory Drug, Prostaglandin E1 AnalogStart: 04-15-2017 End: 28-16-0226zizc 1 tablet by mouth twice dailyDiclofenac-Misoprostol 75-200 mg-mcg tablet,IR,delayed rel,biphasic Discontinued 1 TAB PO Twice daily April 15, 2017 12:00am April 03, 2018 4:41pmgabapentin 300 mg oral capsule (5 sources)Anti-epileptic AgentStart: 03-26-2018 End: 35-83-1018xwjy 3 capsules by mouth three times dailyGabapentin (Neurontin) 300 mg Capsule Discontinued 900 MG PO Three times daily March 26, 2018 12: 00am March 24, 2020 11:39amglucosamine/chondr wise A sod (OSTEO BI-FLEX ORAL) (7 sources) End: 63-44-9189hbsggiitppm/chondr wise A sod (OSTEO BI-FLEX ORAL) Take by mouth. 0 10/26/2022 Discontinuedglucosamine/chondr wise A sod (OSTEO BI-FLEX ORAL) Take by mouth. 0 ActiveComment on above:Take by mouth.hyaluronate (15 sources)Start: 12-92-0615Usuhfuhs May, 2 mLStart: 46-89-2946Grzwtaph May, 2 mLStart: 73-90-9044Xjnohxzw May, 2 mLStart: 01-24-2017 Supartz Jan,Start: 89-88-5381Hejbtfo Dec,methylPREDNISolone (9 sources)CorticosteroidStart: 07-24-9172Bbkz-Medrol 40 mg Dec, 1 mL Start: 47-96-7946Flca-Medrol 40 mg Nov, 1 mLStart: 25-30-1722Uxpm-Medrol 40 mg Apr, 40 mgmorphine sulfate 15 mg extended release oral tablet (5 sources)Opioid AgonistStart: 04-03-2018 End: 35-92-3075iamq 1 tablet by mouth every twelve hours as needed for pain Morphine (Ms Contin) 15 mg tablet extended release Discontinued 15 MG PO Q12H as needed for Pain 147 April 03, 2018 April 14, 2018 11:05am take w/enough water to swallow whole; do not crush/dissolve/chew/cut/breakmultivit- mins/iron/folic/lycop (MV,CA,NPS-YSGP-AV-LYCOPENE ORAL) (7 sources)Start: 03-26-2018 End: 09-19-5185khhf 1 tablet by mouth once dailymultivit-mins/iron/folic/lycop (MV,CA,SPE-MYCG-NJ-LYCOPENE ORAL) Take 1 tablet by mouth once daily.0 03/26/2018 10/26/2022 DiscontinuedStart: 41-23-7150jeek 1 tablet by mouth once daily multivit-mins/iron/folic/lycop (MV,CA,VPE-ENNZ-VP-LYCOPENE ORAL) Take 1 tablet by mouth once daily.0 03/26/2018 ActiveComment on above:Take 1 tablet by mouth once daily.oxyCODONE hydrochloride 5 mg oral tablet (5 sources)Opioid AgonistStart: 04-03-2018 End: 23-81-8600nsiv 1 tablet by mouth every six hours as needed for pain Oxycodone (Roxicodone) 5 mg Tablet Discontinued 1 - 2 TAB PO Q6H as needed for Pain 60 April 03, 2018 March 24, 2020 11:40ampredniSONE 10 mg oral tablet (5 sources)Start: 04-03-2018 End: 94-23-9851Ahneqgollm 10 mg tablets,dose pack Discontinued 1 dose pk PO per package directions April 03, 2018 12:00am March 24, 2020 11:40am take 4 tabs for 3 days then take 3 tabs for 3 days then take 2 tabs for 3 days then take 1 tab for 3 daysStart: 04-03-2018 End: 15-81-2519Uccracolyi Discontinued 1 dose pk PO per package directions April 03, 2018 12:00am March 24, 2020 11:40am take 4 tabs for 3 days then take 3 tabs for 3 days then take 2 tabs for 3 days thentake 1 tab for 3 days rivaroxaban 20 mg oral tablet (5 sources)Factor Xa InhibitorStart: 04-14-2018 End: 30-82-7750aezh 1 tablet by mouth once at dinnerRivaroxaban (Xarelto) 15 mg (42)- 20 mg (9) tablets,dose pack Discontinued 0 PO per package directions April 14, 2018 12:00am March 24, 2020 11:41am PO PER PKG DIR must administer with evening mealSemaglutide,0.25 or 0.5MG/DOS, (Ozempic, 0.25 or 0.5 MG/DOSE,) 2 MG/3ML solution pen-injector (20 sources)Start: 05-15-2024 End: 24-41-8504Elfebyuwmba,0.25 or 0.5MG/DOS, (Ozempic, 0.25 or 0.5 MG/DOSE,) 2 MG/3ML solution pen-injector Indications: Type 2 Diabetes Mellitus , one pre filled pen Inject 0.5 mg under the skin 1 (one) time per week 9 mL 3 05/15/2024 08/18/2024 Discontinued (Other)Start: 85-27-9287Xmxsutkuqxz,0.25 or 0.5MG/DOS, (Ozempic, 0.25 or 0.5 MG/DOSE,) 2 MG/3ML solution pen-injector Indications: Type 2 Diabetes Mellitus , one pre filled pen Inject 0.5 mg under the skin 1 (one) time per week 9 mL 3 05/15/2024 ActiveStart: 06-11-2023 End: 90-45-3496Hxzbqervwxh,0.25 or 0.5MG/DOS, (Ozempic, 0.25 or 0.5 MG/DOSE,) 2 MG/3ML solution pen-injector Indications: Type 2 Diabetes Mellitus , one pre filled pen Inject 0.5 mg under the skin 1 (one) time per week 9 mL 3 06/11/2023 05/15/2024 Discontinued (Reorder)Start: 28-24-9863Vxxfroaxils,0.25 or 0.5MG/DOS, (Ozempic, 0.25 or 0.5 MG/DOSE,) 2 MG/3ML solution pen-injector Indications: Type 2 Diabetes Mellitus , one pre filled pen Inject 0.5 mg under the skin 1 (one) time per week 9 mL 3 06/11/2023 Activesulfamethoxazole 400 mg / trimethoprim 80 mg oral tablet (5 sources)Dihydrofolate Reductase Inhibitor Antibacterial, Sulfonamide AntimicrobialStart: 04-14-2018 End: 55-97-2836pxgw 1 tablet by mouth once dailySulfamethoxazole-Trimethoprim (Bactrim) 400-80 mg Tablet Discontinued 1 TAB PO Daily April 14, 2018 12:00am March 24, 2020 11:41amSUPARTZ FX SODIUM HYALURONATE (9 sources)Start: 07-83-2813DLDHRAT FX SODIUM HYALURONATE Dec, 25 mg Start: 99-09-7389TMDSLNW FX SODIUM HYALURONATE Dec, 25Start: 12-27-2016 SUPARTZ FX SODIUM HYALURONATE Dec, 25 Problems Active Problems Problem ClassificationProblemDateDocumented DateEpisodic/ChronicAcute bronchitis (2 sources)Acute bronchitis; Translations: [Acute bronchitis, unspecified] 00-67-6831EptkisqaXfznb posthemorrhagic anemia (5 sources)Anemia following acute postoperative blood loss; Translations: [Acute posthemorrhagic anemia]60-62-1178AavouprxDmjnpst on above:Problem List clean-up per request of Phys. EHR CmteAnxiety disorders (20 sources)Generalized anxiety disorder; Translations: [Generalized anxiety disorder]Onset: 051499-77-9046NrahmtcXsslbeh obstructive pulmonary disease and bronchiectasis (2 sources)Bronchitis; Translations: [Bronchitis, not specified as acute or chronic]58-58-5312KjrmciyfJuiolvzcofc and hemorrhagic disorders (20 sources)Factor V Leiden mutation; Translations: [Activated protein C resistance]Onset: 144812-85-1489NamdybqVkcayzxb atherosclerosis and other heart disease (20 sources)Coronary arteriosclerosis; Translations: [Atherosclerotic heart disease of [place] coronary artery without angina pectoris]Onset: 11-19-2022 91-85-1572YegctqeBldlyycvy of lipid metabolism (20 sources)Hyperlipidemia; Translations: [Hyperlipidemia, unspecified]Onset: 535137-31-3337SnicaqoHfkgpzlfle disorders (20 sources)Gastroesophageal reflux disease; Translations: [Gastro-esophageal reflux disease without esophagitis]Onset: 485959-93-0789VbeqqojTvbmayt on above:Problem List clean-up per request of Phys. EHR CmteEssential hypertension (20 sources)Essential hypertension; Translations: [Essential (primary) hypertension]Onset: 051832-52-3627PxsvbaoJniqswwm of lower limb (4 sources)Closed fracture of metatarsal bone; Translations: [Fracture of unspecified metatarsal bone(s), unspecified foot, initial encounter for closed fracture]Onset: 92-02-2012YvfcyvfvQkyqnijqjzosg mental health disorders (20 sources)Primary insomnia; Translations: [Primary insomnia]Onset: 11-19-2022 74-05-5685RvqryyjXsidcxgpidh deficiencies (20 sources)Vitamin D deficiency; Translations: [Vitamin D deficiency, unspecified]Onset: 304813-46-8131AjehsdmQvwuxhrhbjsjda (20 sources)Osteoarthritis of knee; Translations: [Unilateral primary osteoarthritis, right knee]Onset: 82-89-2851IhdljdvQkpzy acquired deformities (5 sources)Acquired spondylolisthesis; Translations: [Spondylolisthesis, lumbosacral region]08-61-1808WzfrwrjuUqasyfb on above:Problem List clean-up per request of Phys. EHR CmteOther acquired deformities (2 sources)Spondylolisthesis, lumbar regionOnset: 03-08-2022 Resolved: 27-51-0810IhkjudjdCwoew connective tissue disease (3 sources)History of total knee arthroplasty; Translations: [Presence of right artificial knee joint]87-29-7874OlkldikZrxaj connective tissue disease (2 sources)History of right total knee replacement; Translations: [Presence of right artificial knee joint]93-71-4250SsczuzqQqnyhiz on above:Problem List clean-up per request of Phys. EHR CmteOther connective tissue disease (2 sources)Arthrodesis statusOnset: 03-08-2022 Resolved: 62-43-8408OdpuqaeyGdhyx connective tissue disease (2 sources)Pain in right foot; Translations: [PAIN IN RIGHT FOOT]Onset: 79-88-2582RliatfhdIszzg connective tissue disease (3 sources)Pain in right foot; Translations: [Pain in right foot]01-19-2025 EpisodicOther connective tissue disease (3 sources)Peroneal tendinitis; Translations: [Peroneal tendinitis, right leg] 47-50-2809SgosaypkPrflb connective tissue disease (6 sources)Peroneal tendinitis of right lower limb; Translations: [Peroneal tendinitis, right leg]48-30-4756HagkyvzhZwxlb connective tissue disease (1 source)Peroneal tendinitis, right leg; Translations: [Peroneal tendinitis of lower leg, right]Onset: 90-04-3862VvlhbhyxLwgpd fractures (1 source)Stress fracture, unspecified site, subsequent encounter for fracture with routine healing; Translations: [M84.30XD - Stress fracture, unspecified site, subsequent encounter for fracture with routine healing]Onset: 06-11-2018 EpisodicOther lower respiratory disease (4 sources)Cough; Translations: [Acute cough]30-48-1875HlgsppjaVteth lower respiratory disease (2 sources)Decreased breath sounds; Translations: [Other abnormalities of breathing]19-72-7932KibktmidJghto non-traumatic joint disorders (6 sources)Derangement of right shoulder joint; Translations: [Other specific joint derangements of right shoulder, not elsewhere classified]98-52-3933Hrzvcnj Other non-traumatic joint disorders (2 sources)Pain in right shoulder; Translations: [Pain in joint, shoulder region]78-45-8423UvbmgkdnJhjrv non-traumatic joint disorders (2 sources)Pain in right knee; Translations: [Pain in joint, lower leg] 67-48-2922GqhnxreiZnhzg nutritional; endocrine; and metabolic disorders (18 sources)Obese class II; Translations: [Obesity, unspecified]Onset: 705518-82-1203QlqchpcRjnal nutritional; endocrine; and metabolic disorders (20 sources)Morbid obesity; Translations: [Morbid (severe) obesity due to excess calories]Onset: 196723-50-5629JwuwgfmEyvbm nutritional; endocrine; and metabolic disorders (1 source)Body mass index 30+ - obesity; Translations: [Body mass index (BMI) 32.0-32.9, adult]95-92-6270XofjahwThqut nutritional; endocrine; and metabolic disorders (2 sources)Obese class I; Translations: [Obesity (BMI 30.0-34.9)]08-22-2024 ChronicOther screening for suspected conditions (not mental disorders or infectious disease) (18 sources)Patient encounter status; Translations: [Encounter for screening for malignant neoplasm of colon]Onset: 271897-20-4903BsgdojudKtmnacl on above:Problem List clean-up per request of Phys. EHR CmteOther upper respiratory disease (20 sources)Allergic rhinitis; Translations: [Allergic rhinitis, unspecified] Onset: 423996-77-4060QrqryakIllhzbfc codes; unclassified (3 sources)Insomnia; Translations: [Insomnia, unspecified]EpisodicSpondylosis; intervertebral disc disorders; other back problems (5 sources)Spinal stenosis of lumbar region; Translations: [Spinal stenosis, lumbar region without neurogenic claudication]31-65-9113DrquuvoyNajvdxf on above:Problem List clean-up per request of Phys. EHR CmteSprains and strains (2 sources)Shoulder strain; Translations: [Strain of unspecified muscle, fascia and tendon at shoulder and upper arm level, right arm, initial encounter] 86-99-9847EybnksiqKibjjkistgbm (2 sources)Shortness of breath / R06.02(ICD-9)Onset: 60-02-9356Ooxdirfogoti (1 source)Abnormal findings on diagnostic imaging of limbs / R93.6(ICD-9)Onset: 70-26-2368Tfbgxfleisjw (1 source)Family hx of ischem heart dis and oth dis of the circ sys / Z82.49(ICD-9)Onset: 97-63-2501Gjvfldbixhxo (1 source)Personal history of other venous thrombosis and embolism / Z86.718(ICD-9)Onset: 25-61-4503Myejnkrsnavf (1 source)Pure hypercholesterolemia, unspecified / E78.00(ICD-9)Onset: 20-20-0002Osdkfuqvshxq (2 sources)CONTACT W/AND (SUSP) EXPOS COVID-19; Translations: [CONTACT W/AND (SUSP) EXPOS COVID-19]Onset: 39-05-1641Ybecdkxafyka (1 source)Low back pain, unspecified; Translations: [Low back pain, unspecified] Onset: 32-65-9825Gnxgs infection (1 source)COVID-19; Translations: [COVID-19]Onset: 02-09-2022 Past or Other Problems Problem ClassificationProblemDateDocumented DateEpisodic/ChronicAllergic reactions (20 sources)Chronic idiopathic urticaria; Translations: [Idiopathic urticaria] Onset: 11-19-2022 Resolved: 281307-65-8924NdkvrrdtVfnvtj of prostate (20 sources)Malignant tumor of prostate; Translations: [Malignant neoplasm of prostate]Onset: 11-23-2021 Resolved: 62-15-2863AqpmzciEvyzgw of prostate (20 sources)History of malignant neoplasm of prostate; Translations: [Personal history of malignant neoplasm ofprostate]Onset: 119528-58-3914Xpbdadkn Diabetes mellitus without complication (20 sources)Prediabetes; Translations: [Other abnormal glucose]Onset: 01-19-2022 EpisodicOther acquired deformities (20 sources)Lumbar spondylolisthesis; Translations: [Spondylolisthesis, lumbar region]Onset: 552075-95-5743QrnjupmfQaaqx aftercare (4 sources)Other shelter (current) drug therapy; Translations: [OTH PENITENTIARY 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 THERAPY]Onset: 26-04-6571RvnmgbhdRxvez bone disease and musculoskeletal deformities (20 sources)Osteopenia; Translations: [Other specified disorders of bone density and structure, unspecified site]Onset: 156580-42-6527RleonnubTzxpa connective tissue disease (4 sources)Pain in left foot; Translations: [PAIN IN LEFT FOOT]Onset: 11-02-2021 EpisodicOther lower respiratory disease (1 source)Shortness of breath; Translations: [Shortness of breath]Onset: 99-60-3446JgopghayFzkhq non-traumatic joint disorders (1 source)Pain in left kneeOnset: 02-15-2022 Resolved: 36-52-5182QaqterfvMaueqyfvi; thrombophlebitis and thromboembolism (20 sources)H/O: Deep vein thrombosis; Translations: [Personal history of other venous thrombosis and embolism]Onset: 855610-51-8568XynqgelqSeibtgy detachments; defects; vascular occlusion; and retinopathy (20 sources)Retinal disorder; 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] Onset: 11-19-2022 Resolved: 432762-92-7811JgdkvjwVzparybwfbhx (1 source)CONTACT W/AND (SUSP) EXPOS COVID-19; Translations: [CONTACT W/AND (SUSP) EXPOS COVID-19]Onset: 02-08-2022 Results Test NameValueInterpretationReference RangeFacilityX-ray reportOrdered By: Emory Field on 02-49-8703Jyhfh reportREGENCY [facility] [place] [address] XRay Report Signed Patient: Marco Antonio Benitez MR#: [id number] : 1955 Acct:[id number] Age/Sex: 69 / M ADM Date: 5 Loc: XD Room: Type: [facility] Attending Dr: Preston Tejada MD Copies to: Preston Tejada MD~ Ordering Provider: Preston Tejada MD Date of Service: 03/03/25 XR/XR lumbar spine AP/LAT/FLX/EXT: M54.50 - Low back pain, unspecified 4 views lumbar spine INDICATION: Lumbar back pain COMPARISON: 03/04/2024 FINDINGS: Postsurgical changes status post L4-S1 instrumentation. Disc spacer device identified status post L4-S1 discectomy. Laminectomy identified. There are fractures involving the pedicle screws at S1. Otherwise cgql-ix-hfcrgdcu multilevel intervertebral space narrowing L1-L4. Multilevel retrolisthesis L1 on L2, L2-L3 and L3-4 identified 2 mm, 4 mm and 3 mm respectively. No pathologic instability on the flexion or extension imaging. Otherwise moderate facet arthropathy L3-4. There are vascular calcifications. XR/XR lumbar spine AP/LAT/FLX/EXT IMPRESSION: Stable multilevel degenerative change and postsurgical change. Stable fracture lucencies involving the pedicle screws at S1. Impression dictated by: Emory Field M.D. 03/03/2025 11:28 PM Dictation Location: [place] [address] Transcribed By: [facility] 03/03/252327 Dictated By: Emory Field MD 03/03/252324 Signed By: 03/03/252327 [facility] Work Phone: XR lumbar spine AP/LAT/FLX/EXTon 17-78-6497SH lumbar spine AP/LAT/FLX/EXT[facility] [place] [address] [place] [address] XRay Report Signed Patient: Marco Antonio Benitez MR#: [id number] : 1955 Acct:[id number] Age/Sex: 69 / M ADM Date: 03/03/25 Loc: XD Room: Type: [facility] Attending Dr: Preston Tejada MD Copies to: Preston Tejada MD Ordering Provider: Preston Tejada MD Date of Service: 03/03/25 XR/XR lumbar spine AP/LAT/FLX/EXT: M54.50 - Low back pain, unspecified 4 views lumbar spine INDICATION: Lumbar back pain COMPARISON: 03/04/2024 FINDINGS: Postsurgical changes status post L4-S1 instrumentation. Disc spacer device identified status post L4-S1 discectomy. Laminectomy identified. There are fractures involving the pedicle screws at S1. Otherwise pbuh-ji-fdpkffag multilevel intervertebral space narrowing L1-L4. Multilevel retrolisthesis L1 on L2, L2-L3 and L3-4 identified 2 mm, 4 mm and 3 mm respectively. No pathologic instability on the flexion or extension imaging. Otherwise moderate facet arthropathy L3-4. There are vascular calcifications. XR/XR lumbar spine AP/LAT/FLX/EXT IMPRESSION: Stable multilevel degenerative change and postsurgical change. Stable fracture lucencies involving the pedicle screws at S1. Impression dictated by: Emory Field M.D. 03/03/2025 11:28 PM Dictation Location: [place] [address] Transcribed By: [facility] 03/03/252327 Dictated By: Emory Field MD 03/03/252324 Signed By: 03/03/252327[facility] GroupCNPNon [id number] ([place]) MARCO ANTONIO BENITEZ ([id number]) 1955 M Date Time Provider Department 03/02/25 BOB JIM During your visit today, we recorded the following information about you: Pao Gregg 03/02/2025 8:34 AM Signed Marco Antonio is calling Bob Jim MD today with concern regarding Patient Question. Spouse is asking if patient can get an additional heel wedge. He is walking lopsided and would like to get another one. If not able to get one he would like the ordering information so that he can order another one. Please call patients spouse back with the information. Patient has been identified by name and birthdate. Person calling: spouse: Call patient at: on cell [phone] (home) [phone] (cell) Was an appointment scheduled: No Closing statement: Results or non-symptom based questions: Thank you for calling [facility], your call will be returned within the next business day. Shannon Bowers MA 03/02/2025 11:13 AM Signed Placed follow up call to patient No answer left voice mail Let them know that they can order one off amaz[employer] if they would like If they can no find one on amaz[employer] they can come back to the [place] office to pick another on up Allergies As of Date: 03/02/2025 (No Known Allergies) Date Reviewed: 03/01/2025 Reviewed by: Nayeli Sandoval MA - Fully Assessed Reason for Visit: Patient Question [8497] Prescriptions as of 03/02/2025 - atorvastatin (LIPITOR) 80 mg tablet Take [...] twice daily. Problem List As Of Date 03/02/2025 Noted Resolved Obesity, Class II, BMI 35-39.9 [E66.812] 05/22/2019 Hyperlipidemia [E78.5] History of DVT (deep vein thrombosis) [Z86.718] Factor V Leiden (HCC) [D68.51] Prostate cancer (HCC) [C61] 11/23/2021 Encounter Status:Closed by SHANNON COUCH on 03/02/25[facility] HospitalCNOVkelsi 43-50-8315MTZEOdspck Visit (ORAVON) MARCO ANTONIO BENITEZ ([id number]) 1955 M Date Time Provider Department 03/01/25 7:30 AM BOB JIM During your visit today, we recorded the following information about you: Bob Jim MD 03/01/2025 8:17 AM Signed [facility] - Follow-Up Visit Note CHIEF COMPLAINT: Right midfoot arthritis Right base of fifth prominence INTERVAL HISTORY: Marco Antonio Benitez is a 69 year old male who returns today for his right lateral foot pain. He has been to a physical therapy appointment. He wears his lace up ASO ankle brace all day. He has switched to soft soled shoes-Hoka's. Takes beug-fbr-uyxclxh pain medication as needed. He walks up to 10,000 steps on concrete while working and is barefoot at home. Does have pain when he takes his shoes off describes it as sharp, shooting, rates a 10 out of 10. PHYSICAL EXAM: Well appearing male in no acute distress; Alert and oriented. Right Lower Extremity: Inspection: Incisions CDI from remote surgery, forefoot adductus alignment Palpation: TTP over midfoot, especially over prominent base of 5th MT. Tender to percussion there ROM: Maintained Neuro: sensation intact in the superficial peroneal, deep peroneal, tibial, sural, and saphenous nerve distributions Vascular: DP pulse present, 2+ Pain with heel raise, arch maintained bilaterally Compartments: compartments of leg are soft and compressible IMAGING: No new imaging ASSESSMENT: Right midfoot arthritis Right base of fifth prominence PLAN: - Continue with activity modification and soft soled shoes - Recommended soft soled house shoes to help with pain while walking around at home - Provided heel wedge to continue to offload the area Follow up: As needed Imaging at next visit: None needed Thank you for the opportunity to participate in this patient's care. Bob Jim MD Medical Decision Making Allergies As of Date: 03/01/2025 (No Known Allergies) Date Reviewed: 03/01/2025 Reviewed by: Nayeli Sandoval MA - Fully Assessed Reason for Visit: Established Patient [175] Primary Visit Diagnosis:Arthritis of right midfoot [M19.071] Other Visit Diagnosis:Peroneal tendinitis of lower leg, right [M76.71] Prescriptions as of 03/01/2025 - atorvastatin (LIPITOR) 80 mg tablet Take [...] twice daily. Problem List As Of Date 03/01/2025 Noted Resolved Obesity, Class II, BMI 35-39.9 [E66.812] 05/22/2019 Hyperlipidemia [E78.5] History of DVT (deep vein thrombosis) [Z86.718] Factor V Leiden (HCC) [D68.51] Prostate cancer (HCC) [C61] 11/23/2021 Level of Service: OFFICE/OUTPATIENT ESTABLISHED LOW [facility] 20 MIN [42339] Encounter Status:Closed by BOB JIM on 03/01/25NoKind[facility] CBC WITH AUTO DIFFon 10-15-5126HTZDRBRIY ABSOLUTE [id number] HealthcareBasophils/100 WBC (Bld)0.4 %0.2 - 2.0 %NOMS HealthcareEosinophils/100 WBC (Bld)3.4 %0.9 - 7.0 %NOM HealthcareErythrocyte distribution width (RBC) [Ratio]12.6 %11.0 - 15.0 %NOMS HealthcareHematocrit (Bld) [Volume fraction]42.6 %42.0 - 54.0 %NOM HealthcareHemoglobin (Bld) [Mass/Vol]14.5 g/dL14.0 - 18.0 g/dLNOLafayette Regional Health CenterIMMATURE GRANULOCYTES ABS AUTO0.03NOMS HealthcareImmature granulocytes/100 WBC (Bld)0.4 %0.0 - 0.5 %NOM HealthcareInterpretation and review of laboratory resultsAbnormalNOME HealthcareLYMPHOCYTES ABSOLUTE AUTO1.6 NOMTexas County Memorial HospitalLymphocytes/100 WBC (Bld)22.8 %20.5 - 60.0 %[facility] CenterH (RBC) [Entitic mass]32.2 pg25.9 - 34.0 pgNOOzarks Community HospitalHC (RBC) [Mass/Vol]34 g/dL29.9 - 35.2 g/dLMoberly Regional Medical CenterMCV (RBC) [Entitic vol]94.7 aJAiwl66.0 - 94.0 fLMoberly Regional Medical CenterMONOCYTES ABSOLUTE AUTO0.8NOMS HealthcareMonocytes/100 WBC (Bld)10.8 %1.7 - 12.0 %NOM HealthcareNEUTROPHILS ABSOLUTE AUTO4.4NOME HealthcareNeutrophils/100 WBC (Bld)62.2 %43.0 - 75.0 %Mober[facility] Regional Medical CenterPlatelet mean volume (Bld) [Entitic vol]8.5 fLLow9.5 - 13.5 fLMoberly Regional Medical CenterTBH EO #0.2 [facility] [id number] [facility] RBC4.5LowNOCox South WBC7.1 NOMTexas County Memorial HospitalCLINISYNCNOMS HealthcareMHPT PSA, DIAGNOSTICon 92-59-2747RIZFPCAX SPECIFIC ANTIGEN DX1.39 ng/mLNINF - 4.00 ng/mLNOMS HealthcareCLINISYNCNOMS HealthcareXR FOOT 3V AP/LAT/OBL RTon 01-21-2025* * *Final Report* * * DATE OF [...] NO SIGNIFICANT CHANGE. NO ACUTE OSSEOUS ABNORMALITY Nursery Nurse: [facility] HOSPITALChanda Transcribe Date/Time: Jan 21 2025 3:10P Dictated by : ANGELINE RAYO MD This examination was interpreted and the report reviewed and electronically signed by: ANGELINE RAYO MD on Jan 21 2025 3:11PM EST [id number]^AGFA_IDC^SI^ACNCCFRadiology, Radiologist, - 01/21/2025 * * *Final Report* [...] NO SIGNIFICANT CHANGE. NO ACUTE OSSEOUS ABNORMALITY Nursery Nurse: PSCChanda Transcribe Date/Time: Jan 21 2025 3:10P Dictated by : ANGELINE RAYO MD This examination was interpreted and the report reviewed and electronically signed by: ANGELINE RAYO MD on Jan 21 2025 3:11PM EST [id number]^AGFA_IDC^SI^ACN NOMS HealthcareXR FOOT 3V AP/LAT/OBL RTOrdered By: Radiologist Radiology on 48-53-4490WFRI [employer] Work Phone: cNOVon [phone] Visit (ORAV[place]) MARCO ANTONIO BENITEZ ([id number]) 1955 M Date Time Provider Department 01/20/25 [...] Known Allergies) Date Reviewed: 01/20/2025 Reviewed by: Shannon Couch MA - Fully Assessed Reason for Visit: New [[id number]] Primary Visit Diagnosis:Arthritis of right midfoot [M19.071] Other Visit Diagnosis:Peroneal tendinitis of lower leg, right [M76.71] Order(s):CONSULT TO PHYSICAL THERAPY [9038] Order #: [id number]: 1 FUTURE Prescriptions as of 01/20/2025 - [...] 11/23/2021 Level of Service: OFFICE/OUTPATIENT ESTABLISHED LOW [facility] 20 MIN [18058] Letter Text Encounter Status:Closed by BOB JIM on 01/20/25[facility] HospitalXR FOOT 3V AP/LAT/OBL RTon 41-86-1432JO FOOT 3V AP/LAT/OBL RT* * *Final Report* * * DATE OF [...] NO SIGNIFICANT CHANGE. NO ACUTE OSSEOUS ABNORMALITY Nursery Nurse: [facility] HOSPITALChanda Transcribe Date/Time: Jan 21 2025 3:10P Dictated by : ANGELINE RAYO MD This examination was interpreted and the report reviewed and electronically signed by: ANGELINE RAYO MD on Jan 21 2025 3:11PM EST [id number] Health Greene Memorialiology Study observation (narrative)NOMS [facility] URINALYSIS, WITH MICROSCOPICon 58-58-8123ZNCDQAQC URINETRACEAbnormalNONE SEEN #/HPFNOMS HealthcareBILIRUBIN URINENegativeNEGATIVENOMS HealthcareBLOOD URINENegativeNEGATIVENOMS Healthcare CAST SEEN?NONE SEENNONE SEEN #/LPFNOMS HealthcareClarity (U)CLEARCLEARNOMS HealthcareColor (U)LT. YELLOWYELLOWNOMS HealthcareCRYSTALS SEEN?None SeenNone Seen #/HPFNOMS HealthcareGLUCOSE URINE UANegativeNEGATIVE mg/dLNOME Healthcare Interpretation and review of laboratory resultsAbnormalNOMS HealthcareKetones Ql (U)NegativeNEGATIVE mg/dLNOMS HealthcareLeukocyte esterase Test strip Ql (U) NegativeNEGATIVENOMS HealthcareMUCUS URINENONE SEENNONE SEENNOMS Healthcare NITRITE URINENegativeNEGATIVENOMS HealthcarepH (U)6.5 [pH]5.0 - 9.0NOMS HealthcarePROTEIN URINENegativeNEG/TRACE mg/dLNOME HealthcareSPECIFIC GRAVITY URINE1.0151.005 - 1.025NOMS HealthcareSQUAMOUS EPITHELIAL CELL URINERARE NONE/RARE #/LPFNOMS HealthcareTBH RBCNONE SEENNOMS HealthcareTBH WBC0-2Abnormal NONE SEEN #/HPFNOMS HealthcareUROBILINOGEN URINE0.2 EU/dL0.2 - 1.0 EU/dLMoberly Regional Medical CenterCLINISYNBRISTOL COUNTY [facility] HealthcareXR Knee - right 1 or 2 Viewson 07-22-2024 Imaging Result: 07/22/2024: Standing AP and [...] Stable RT total knee replacement. Adalberto Lyn APRN-[facility] HealthcareRadiology Study observation (narrative)NOMS HealthcareXR CHEST 2 VIEWSon 43-62-3220BJ CHEST 2 VIEWSXR CHEST 2 VIEWS Reason for exam: Cough [...] electronically signed and approved by the interpreting Radiologist.NormalNot AvailableOffice Visiton 12-60-2136Agzdtp-up [id number] Marco Antonio Benitez 1955 M Date Provider Department Center 05/25/2024 [id number] CARD [facility] Family History Problem Relation Age of Onset Sick sinus syndrome Father Other Other Family Status - Relation Status Age at Father Other Level of Service:[address] [place] OFFICE/OUTPATIENT ESTABLISHED LOW MDM 20 [facility] CenterMHPT PSA, DIAGNOSTICon 39-04-5071AEIAMFKW SPECIFIC ANTIGEN DX1.1 ng/mLNINF - 4.00 ng/mLNOMS [facility] SHOULDER RIGHT WO IV CONTRASTon 30-08-6388HI SHOULDER RIGHT WO IV CONTRASTEXAM: MR SHOULDER RIGHT WO IV CONTRAST HISTORY: Shoulder pain and decreased range of motion. TECHNIQUE: Multiplanar multisequence MRI of the shoulder was performed Without contrast. COMPARISON: Shoulder radiographs April 10, 2024. FINDINGS: Mild degenerative changes of the acromioclavicular joint without undersurface osteophyte formation.The acromion is curved. Coracoclavicular ligament intact. No subacromial/subdeltoid bursal fluid. Mild supraspinatus and subscapularis tendinosis. 6 mm intrasubstance tear along the myotendinous junction of infraspinatus superimposed on mild tendinosis. Teres minor tendon is intact. No atrophy orfatty infiltration of the rotator cuff musculature. Mild [...] biceps tendinosis. ELECTRONICALLY SIGNED BY: Annette Hinds, DONormalNot AvailableXR Shoulder - right 2 Viewson [id number] Result: Imaging Result: scapular Y and AP [...] right shoulder moderate acromioclavicular degenerative joint disease. [facility] HealthcareRadiology Study observation (narrative)[facility] Medical CenterALL CBC WITH AUTO DIFFon 60-56-2257YKJJSWPZD ABSOLUTE AUTO0.0Moberly Regional Medical CenterBasophils/100 WBC (Bld)0.6 %0.2 - 2.0 %[facility] HealthcareEosinophils/100 WBC (Bld)9.2 %High0.9 - 7.0 %[facility] Medical CenterErythrocyte distribution width (RBC) [Ratio]12.6 %11.0 - 15.0 %[facility] HealthcareHematocrit (Bld) [Volume fraction]40.3 %Low42.0 - 54.0 %[facility] HealthcareHemoglobin (Bld) [Mass/Vol]13.4 g/dLLow14.0 - 18.0 g/dLMoberly Regional Medical CenterIMMATURE GRANULOCYTES ABS AUTO0.02NOLafayette Regional Health Center Immature granulocytes/100 WBC (Bld)0.3 %0.0 - 0.5 %[facility] Medical CenterInterpretation and review of laboratory resultsAbnormalNOLafayette Regional Health CenterLYMPHOCYTES ABSOLUTE AUTO1.3NOMS [facility]S Medical CenterLymphocytes/100 WBC (Bld)20.5 %20.5 - 60.0 %[facility] CenterH (RBC) [Entitic mass]31.7 pg25.9 - 34.0 pgSaint Joseph Health CenterHC (RBC) [Mass/Vol]33.3 g/dL29.9 - 35.2 g/dLSaint Joseph Health CenterV (RBC) [Entitic vol]95.3 fL High80.0 - 94.0 fLMoberly Regional Medical CenterMONOCYTES ABSOLUTE AUTO0.9HighMoberly Regional Medical Center Monocytes/100 WBC (Bld)14.3 %High1.7 - 12.0 %[facility] Medical CenterNEUTROPHILS ABSOLUTE AUTO3.4NOLafayette Regional Health CenterNeutrophils/100 WBC (Bld)55.1 %43.0 - 75.0 %M[facility] Medical CenterPlatelet mean volume (Bld) [Entitic vol]8.4 fLLow9.5 - 13.5 fLMoberly Regional Medical CenterTB EO #0.6NOMS [facility] Medical CenterTB QKH085KXJPCox South RBC4.23LowNOCox South WBC6.2NOMS [facility]S Medical CenterCLINISYNCNPutnam County Memorial HospitalMR Prostate WO and W contrast Citlali 11-22-2023* * *Final Report* * * DATE OF EXAM: Nov 22 2023 12:16PM [facility] 0751 - MRI PROSTATE WO/W [...] volume were obtained using a semi-automated software (Octopart). THREE-DIMENSIONAL IMAGIND imaging including complex volumetric analysis of the prostate was created on a dedicated stand-alone workstation ([employer]by the interpreting physician, with images reviewed and [...] osseous lesions. Other Findings: None. DIVISION OF RADIOLOGYProvider, [facility] [place] - 11/22/2023 * * *Final Report* * [...] volume were obtained using a semi-automated software (Octopart). THREE-DIMENSIONAL IMAGIND imaging including complex volumetric analysis of the prostate was created on a dedicated stand-alone workstation ([employer]by the interpreting physician, with images reviewed and [...] of suspicion for clinically significant prostate cancer (Washington score 3 + 4 or higher). PI-RADS v2.1 Assessment Categories: PI-RADS 1: Clinically significant cancer is highly unlikely PI-RADS 2: Clinically significant cancer is unlikely PI-RADS 3: Clinically significant cancer is equivocal PI-RADS 4: Clinically significant cancer is likely PI-RADS 5: Clinically significant cancer is highly likely (V.) Nursery Nurse: PSCB Transcribe Date/Time: Nov 22 2023 1:34P Dictated by : ALEXIA MOY MD This examination was interpreted and the report reviewed and electronically signed by: LORENZO HEBERT MD on Nov 22 2023 3:20PM [facility] CenterMR Unspecified body region 3D post processingon 11-22-2023* * *Final Report* * * DATE OF EXAM: Nov 22 2023 12:16PM [facility] 0280 - MRI 3D POST [...] volume were obtained using a semi-automated software (Octopart). THREE-DIMENSIONAL IMAGIND imaging including complex volumetric analysis of the prostate was created on a dedicated stand-alone workstation ([employer]by the interpreting physician, with images reviewed and [...] osseous lesions. Other Findings: None. DIVISION OF RADIOLOGYProvider, [facility] [place] - 11/22/2023 * * *Final Report* * * DATE OF EXAM: Nov 22 2023 12:16PM [facility] 0280 - MRI 3D POST [...] volume were obtained using a semi-automated software (Octopart). THREE-DIMENSIONAL IMAGIND imaging including complex volumetric analysis of the prostate was created on a dedicated stand-alone workstation ([employer]by the interpreting physician, with images reviewed and [...] Clinically significant cancer is highly likely (V.) Nursery Nurse: LIZETTE Transcribe Date/Time: Nov 22 2023 1:34P Dictated by : ALEXIA MOY MD This examination was interpreted and the report reviewed and electronically signed by: LORENZO HEBERT MD on Nov 22 2023 3:20PM [facility] PROCESSINGon 11-22-2023* * *Final Report* * * DATE OF EXAM: Nov 22 2023 12:16PM [facility] 0280 - MRI 3D POST [...] volume were obtained using a semi-automated software (Octopart). THREE-DIMENSIONAL IMAGIND imaging including complex volumetric analysis of the prostate was created on a dedicated stand-alone workstation ([employer]by the interpreting physician, with images reviewed and [...] Clinically significant cancer is highly likely (V.) Nursery Nurse: LIZETTE Transcribe Date/Time: Nov 22 2023 1:34P Dictated by : ALEXIA MOY MD This examination was interpreted and the report reviewed and electronically signed by: LORENZO HEBERT MD on Nov 22 2023 3:20PM EST [id number]^AGFA_IDC^SI^ACNCCFRadiology, Radiologist, - 11/22/2023 * * *Final Report* * * DATE OF EXAM: Nov 22 2023 12:16PM [facility] 0280 - MRI 3D POST [...] volume were obtained using a semi-automated software (Octopart). THREE-DIMENSIONAL IMAGIND imaging including complex volumetric analysis of the prostate was created on a dedicated stand-alone workstation ([employer]by the interpreting physician, with images reviewed and [...] Clinically significant cancer is highly likely (V.) Nursery Nurse: LIZETTE Transcribe Date/Time: Nov 22 2023 1:34P Dictated by : ALEXIA MOY MD This examination was interpreted and the report reviewed and electronically signed by: LORENZO HEBERT MD on Nov 22 2023 3:20PM EST [id number]^AGFA_IDC^SI^ACN [facility]/W IVCONon 11-22-2023* * *Final Report* * * DATE OF [...] volume were obtained using a semi-automated software (Octopart). THREE-DIMENSIONAL IMAGIND imaging including complex volumetric analysis of the prostate was created on a dedicated stand-alone workstation ([employer]by the interpreting physician, with images reviewed and [...] of suspicion for clinically significant prostate cancer (Washington score 3 + 4 or higher). PI-RADS v2.1 Assessment Categories: PI-RADS 1: Clinically significant cancer is highly unlikely PI-RADS 2: Clinically significant cancer is unlikely PI-RADS 3: Clinically significant cancer is equivocal PI-RADS 4: Clinically significant cancer is likely PI-RADS 5: Clinically significant cancer is highly likely (V.05.2018) Nursery Nurse: LIZETTE Transcribe Date/Time: Nov 22 2023 1:34P Dictated by : ALEXIA MOY MD This examination was interpreted and the report reviewed and electronically signed by: LORENZO HEBERT MD on Nov 22 2023 3:20PM EST [id number]^AGFA_IDC^SI^ACNCCFRadiology, Radiologist, - 11/22/2023 * * *Final Report* * * DATE OF EXAM: Nov 22 2023 12:16PM [facility] 0751 - MRI PROSTATE WO/W [...] volume were obtained using a semi-automated software (Octopart). THREE-DIMENSIONAL IMAGIND imaging including complex volumetric analysis of the prostate was created on a dedicated stand-alone workstation ([employer]by the interpreting physician, with images reviewed and [...] of suspicion for clinically significant prostate cancer (Washington score 3 + 4 or higher). PI-RADS v2.1 Assessment Categories: PI-RADS 1: Clinically significant cancer is highly unlikely PI-RADS 2: Clinically significant cancer is unlikely PI-RADS 3: Clinically significant cancer is equivocal PI-RADS 4: Clinically significant cancer is likely PI-RADS 5: Clinically significant cancer is highly likely (V.) Nursery Nurse: PSCB Transcribe Date/Time: Nov 22 2023 1:34P Dictated by : ALEXIA MOY MD This examination was interpreted and the report reviewed and electronically signed by: LORENZO HEBERT MD on Nov 22 2023 3:20PM EST [id number]^AGFA_IDC^SI^ACN [facility] HealthcareNo Panel Informationon [id number]: 1.0 cm left anterior transition PI-RADS 3 lesion, similar to 10/27/2021. No new lesion suspicious for clinically significant prostate cancer. No lymphadenopathy or suspicious osseous lesions. Number of targets created for MR/US fusion biopsy: Peripheral zone: 0 Transition zone: 1 If present, targets were numbered in order of level of suspicion for clinically significant prostate cancer (Washington score 3 + 4 or higher). PI-RADS v2.1 Assessment Categories: PI-RADS 1: Clinically significant cancer is highly unlikely PI-RADS 2: Clinically significant cancer is unlikely PI-RADS 3: Clinically significant cancer is equivocal PI-RADS 4: Clinically significant cancer is likely PI-RADS 5: Clinically significant cancer is highly likely (V.) Nursery Nurse: PSCB Transcribe Date/Time: Nov 22 2023 1:34P Dictated by : ALEXIA MOY MD This examination was interpreted and the report reviewed and electronically signed by: LORENZO HEBERT MD on Nov 22 2023 3:20PM [facility] DIVISION OF RADIOLOGYRadiology Study observation (narrative)[facility] Radiology Study observation (narrative)[facility]OMS HealthcareNo Panel Information Ordered By: [facility] Provider on [id number] ClinicURINALYSIS, REFLEX MICROSCOPICon [id number] Ql (U)NegativeNegativeCleveland ClinicClarity (Unsp spec)ClearClearCleveland ClinicColor (U)Light YellowYellowCleTuscarawas Hospital Glucose Test strip (U) [Mass/Vol]NegativeTrace, NegativeMartins Ferry Hospital Hemoglobin Ql (U)NegativeNegative, TraceCleveland ClinicInterpretation and review of laboratory resultsAbnormalCleveland ClinicKetones Ql (U)Negative Negative, TraceCleTuscarawas HospitalLeukocyte esterase Test strip Ql (U)Negative Negative, 25 Rae/uLCleveland ClinicNitrite Ql (U)NegativeNegativeClesumma health [facility] campus ClinicpH (U)5.5 [pH]5.0 - 8.0Cleveland ClinicProtein (U) [Mass/Vol]Negative Trace, NegativeMercer County Community Hospitalveland ClinicSpecific gravity (U) [Rel density]1.493Vaxv9.005 - 1.030Cleveland ClinicUrobilinogen Ql (U)NormalNormalCleveland ClinicCleveland ClinicCA ECHO DOPPLER COMPLETEon [id number], [place] [address] Cardiology Report Signed Patient: MARCO ANTONIO BENITEZ MR#: [id number] : 1955 Acct:[id number] Age/Sex: 68 / M ADM Date: 06/12/23 Loc: CARD Attending Dr: Berry Fisher M.D. Ordering Physician: Berry Fisher M.D. Date of Service: 06/12/23 Procedure(s): CA echo doppler complete Accession Number(s): [id number] cc: Berry Fisher M.D.; ANNETTE BLOCK Patient Name: MARCO ANTONIO BENITEZ MR#: [id number] : 1955 Exam Date: 06/12/2023 Ordering Doctor: DR BERRY FISHER M.D. ECHOCARDIOGRAM REPORT PROCEDURE: CA ECHO DOPPLER COMPLETE INDICATIONS: Mitral valve regurgitation COMPARISON: None. DESCRIPTION: COMPLETE ECHOCARDIOGRAM Real-time transthoracic echocardiography with 2D, M-mode, spectral and color flow Doppler performed. QUALITY: Technical quality was good. 67 , 215#, BSA 2.09 m2 LEFT VENTRICLE: Normal chamber size. Mildly increased left ventricular wall thickness. LV EF: Global left ventricular systolic function is hyperdynamic; visually estimated ejection fraction is 65 to 70%. No significant wall motion abnormalities. DIASTOLIC: Normal diastolic function. ATRIAL SEPTUM: Visually appears intact. LEFT ATRIUM: Normal chamber size. RIGHT ATRIUM: Normal chamber size. RIGHT VENTRICLE: Normal chamber size. Normal right ventricular systolic function. TRICUSPID VALVE: Normal mobility and thickness. No stenosis with trivial regurgitation. MITRAL VALVE: Mildly thickened with normal mobility. No evidence of mitral valve stenosis. There is no mitral annular calcification. No mitral regurgitation. AORTIC VALVE: Normal aortic valve. No visible sclerosis. Normal leaflet mobility. No evidence of aortic valve stenosis. Trivial aortic regurgitation. AORTIC ROOT: Normal diameter and appearance. PULMONIC VALVE: Normal thickness and mobility. No stenosis. No regurgitation. PERICARDIUM: No evidence of pericardial effusion. IVC: Collapses with inspirations. IVC is normal in size. CONCLUSION: 1. Global left ventricular systolic function is hyperdynamic; visually estimated ejection fraction is 65 to 70% 2. Normal right ventricular size and systolic function 3. Mild increased left ventricular wall thickness 4. Normal diastolic function 5. No significant valvular abnormalities Adult Echocardiography Procedure Report Left Ventricle LVEDD (3.7 - 5.6 cm): 4.75 cm LVESD (2.2 - 4.0 cm): 3.22 cm LVIVS thickness (0.6 - 1.2 cm): 1.27 cm LVPW thickness (0.5 - 1.0 cm): 1.12 cm e': 0.17 m/s E - e': 3.63 LVOT Max Gradient: 2.71 mm[Hg] LVOT Area (cm2): 0.82 m/s Peak Velocity (LVOT): 0.82 m/s Mean Velocity (LVOT): 0.54 m/s LVOT Diameter 2.73 cm Left Atrium LA Volume Index (2D A2C): 27.66 ml/m2 Left Atrium Systolic Dimension: 3.81 cm Mitral Valve MV E to A Ratio: 1, 1.02 Mitral Valve A-Wave Peak Velocity: 0.60 m/s Mitral Valve E-Wave Peak Velocity: 0.61 m/s Right Ventricle Aorta AO Root Diam: 3.68 cm Ascending Ao Diam: 3.61 cm Aortic Valve AoV Area (Peak Con): 3.89 cm2, 3.89 cm2 AoV Area (VTI): 4.40 cm2, 4.40 cm2 Peak Velocity(Antegrade Flow): 1.23 m/s Peak Gradient(Antegrade Flow): 6.09 mm[Hg] Mean Velocity(Antegrade Flow): 0.74 m/s Mean Gradient(Antegrade Flow): 2.67 mm[Hg] Velocity Time Integral: 22.04 cm Tricuspid Valve Pulmonic Valve Peak Velocity: 1.21 m/s Peak Gradient: 5.24 mm[Hg], 6.55 mm[Hg] Right Atrium Right Atrium Systolic Pressure: 27.28 ml, 27.28 ml Dictated by: Berry Fisher M.D. on 06/12/2023 at 16:08 Approved by: Berry Fisher M.D. on 06/12/2023 at 16:12 Dictated By: Berry Fisher M.D. Signed By: 06/12/23 0074 (more content not included)...TBHRadiology, Radiologist, - 06/13/[address] [address] Cardiology Report Signed Patient: MARCO ANTONIO BENITEZ MR#: [id number] : 1955 Acct:[id number] Age/Sex: 68 / M ADM Date: 06/12/23 Loc: CARD Attending Dr: Berry Fisher M.D. Ordering Physician: Berry Fisher M.D. Date of Service: 06/12/23 Procedure(s): CA echo doppler complete Accession Number(s): [id number] cc: Berry Fisher M.D.; ANNETTE BLOCK Patient Name: MARCO ANTONIO BENITEZ MR#: [id number] : 1955 Exam Date: 06/12/2023 Ordering Doctor: DR BERRY FISHER M.D. ECHOCARDIOGRAM REPORT PROCEDURE: CA ECHO DOPPLER COMPLETE INDICATIONS: Mitral valve regurgitation COMPARISON: None. DESCRIPTION: COMPLETE ECHOCARDIOGRAM Real-time transthoracic echocardiography with 2D, M-mode, spectral and color flow Doppler performed. QUALITY: Technical quality was good. 67 , 215#, BSA 2.09 m2 LEFT VENTRICLE: Normal chamber size. Mildly increased left ventricular wall thickness. LV EF: Global left ventricular systolic function is hyperdynamic; visually estimated ejection fraction is 65 to 70%. No significant wall motion abnormalities. DIASTOLIC: Normal diastolic function. ATRIAL SEPTUM: Visually appears intact. LEFT ATRIUM: Normal chamber size. RIGHT ATRIUM: Normal chamber size. RIGHT VENTRICLE: Normal chamber size. Normal right ventricular systolic function. TRICUSPID VALVE: Normal mobility and thickness. No stenosis with trivial regurgitation. MITRAL VALVE: Mildly thickened with normal mobility. No evidence of mitral valve stenosis. There is no mitral annular calcification. No mitral regurgitation. AORTIC VALVE: Normal aortic valve. No visible sclerosis. Normal leaflet mobility. No evidence of aortic valve stenosis. Trivial aortic regurgitation. AORTIC ROOT: Normal diameter and appearance. PULMONIC VALVE: Normal thickness and mobility. No stenosis. No regurgitation. PERICARDIUM: No evidence of pericardial effusion. IVC: Collapses with inspirations. IVC is normal in size. CONCLUSION: 1. Global left ventricular systolic function is hyperdynamic; visually estimated ejection fraction is 65 to 70% 2. Normal right ventricular size and systolic function 3. Mild increased left ventricular wall thickness 4. Normal diastolic function 5. No significant valvular abnormalities Adult Echocardiography Procedure Report Left Ventricle LVEDD (3.7 - 5.6 cm): 4.75 cm LVESD (2.2 - 4.0 cm): 3.22 cm LVIVS thickness (0.6 - 1.2 cm): 1.27 cm LVPW thickness (0.5 - 1.0 cm): 1.12 cm e': 0.17 m/s E - e': 3.63 LVOT Max Gradient: 2.71 mm[Hg] LVOT Area (cm2): 0.82 m/s Peak Velocity (LVOT): 0.82 m/s Mean Velocity (LVOT): 0.54 m/s LVOT Diameter 2.73 cm Left Atrium LA Volume Index (2D A2C): 27.66 ml/m2 Left Atrium Systolic Dimension: 3.81 cm Mitral Valve MV E to A Ratio: 1, 1.02 Mitral Valve A-Wave Peak Velocity: 0.60 m/s Mitral Valve E-Wave Peak Velocity: 0.61 m/s Right Ventricle Aorta AO Root Diam: 3.68 cm Ascending Ao Diam: 3.61 cm Aortic Valve AoV Area (Peak Con): 3.89 cm2, 3.89 cm2 AoV Area (VTI): 4.40 cm2, 4.40 cm2 Peak Velocity(Antegrade Flow): 1.23 m/s Peak Gradient(Antegrade Flow): 6.09 mm[Hg] Mean Velocity(Antegrade Flow): 0.74 m/s Mean Gradient(Antegrade Flow): 2.67 mm[Hg] Velocity Time Integral: 22.04 cm Tricuspid Valve Pulmonic Valve Peak Velocity: 1.21 m/s Peak Gradient: 5.24 mm[Hg], 6.55 mm[Hg] Right Atrium Right Atrium Systolic Pressure: 27.28 ml, 27.28 ml Dictated by: Berry Fisher M.D. on 06/12/2023 at 16:08 Approved by: Berry Fisher M.D. on 06/12/2023 at 16:12 Dictated By: Berry Fisher M.D. Signed By: 06/12/231613 DD/ 11 TD/TT: Nursery Nurse[facility] CenterRadiology Study observation (narrative)[facility] ECHO DOPPLER COMPLETEOrdered By: Radiologist Radiology on [id number] Work Phone: Office Visiton [phone]-up [id number] Marco Antonio Benitez 1955 M Date Provider Department Center 05/30/2023 Joshua-BERRY FISHER [facility] Family History Problem Relation Age of Onset Sick sinus syndrome Father Other Other Family Status - Relation Status Age at Father Other Level of Service:[address] [place] OFFICE/OUTPATIENT ESTABLISHED LOW MDM 20-29 [facility] CenterGLYCOHEMOGLOBIN A1Con [id number] RECOMMENDATIONSEE [facility] HospitalComment on above:Result Comment: ADA RECOMMENDED LIMIT 4.0 - 6.0 ADA THERAPEUTIC TARGET < 7.0 ACTION SUGGESTED > 7.0Performed By: #### A1C #### [facility] [address] [address] [address] Chari LantiguaGlucose [Mass/Vol]126 mg/dLProMedica Toledo HospitalComment on above:Performed By: #### A1C #### [facility] [address] [address] [address] Chari LantiguaHbA1c (Bld) [Mass fraction]6.0 %Normal4.5-6.2[facility] HospitalComscheurer hospital on above:Performed By: #### A1C #### [facility] [address] [address] [address] Chari GrandeALChanda CREAT RATIO RANDOMon 34-91-5697iMZG4.7 mg/LNormal<=30.0 The [facility] HospitalComscheurer hospital on above:Performed By: #### MCRR #### [facility] [address] [address] [address] Chari GrantB CR RATIO14.4 mg/gNormal0.0-29.9The [facility] HospitalComment on above:Performed By: #### MCRR #### [facility] [address] [place] [address] Dr. Chari Mariscal CR RATIO RANGESEE [facility] HospitalComscheurer hospital on above:Result Comment: NO MICROALBUMINURIA 0-29 MG/G CLINICAL MICROALBUMINURIA 30-300 MG/G MACROALBUMINURIA >300 MG/GPerformed By: #### MCRR #### [facility] [address] [place] [address] Dr. Chari Lawton GQAJW002.81 mg/yIGgpnaq00.00-300.00[facility] Comment on above:Performed By: #### MCRR #### [facility] [address] [place] [address] Dr. Chari LantiguaPROF 14(COMP METB)on 82-39-6281Ydyhons [Mass/Vol]4.0 g/dLNormal 3.4-5.0The [facility] HospitalComment on above:Performed By: #### CBC #### [facility] [address] [place] [address] Dr. Chari LantiguaAlbumin/Globulin [Mass ratio]1.2 {ratio}NormalThe [facility] HospitalComment on above:Performed By: #### CBC #### [facility] [address] [place] [address] [Catalytic activity/Vol]83 U/JHlwsuy49-226Wcb [facility] HospitalComment on above:Performed By: #### CBC #### [facility] [address] [place] [address] Dr. Chari Smith [Catalytic activity/Vol]46 U/LVdevrc23-86Flg [facility] HospitalComment on above:Performed By: #### CBC #### [facility] [address] [place] [address] Dr. Chari Sanches gap [Moles/Vol]14.0 mmol/LNormalThe [facility] Comment on above:Performed By: #### CBC #### [facility] [address] [place] [address] Dr. Chari Mcnair [Catalytic activity/Vol]30 U/XCsrwkd74-42Xxa [facility] HospitalComment on above:Performed By: #### CBC #### [facility] [address] [place] [address] Dr. Chari LantiguaBilirubin [Mass/Vol]0.5 mg/dLNormal0.2-1.0The [facility] Comment on above:Performed By: #### CBC #### [facility] [address] [address] [address] Chari LantiguaCalcium [Mass/Vol]8.9 mg/dLNormal8.5-10.1The [facility] Comment on above:Performed By: #### CBC #### [facility] [address] [address] [address] Chari LantiguaChloride [Moles/Vol]104 mmol/KTmomhv79-640Eay [facility] Comment on above:Performed By: #### CBC #### [facility] [address] [address] [address] Chari LantiguaCO2 [Moles/Vol]28.7 mmol/FMewnvz87.0-32.0[facility] Comment on above:Performed By: #### CBC #### [facility] [address] [address] [address] Chari LantiguaCreatinine [Mass/Vol]0.81 mg/dLNormal0.70-1.30The [facility] HospitalComment on above:Performed By: #### CBC #### [facility] [address] [address] [address] Chari HernandezGFR-AF HONDURAN>60Normal>=60The [facility] HospitalComment on above:Performed By: #### CBC #### [facility] [address] [address] [address] Chari HernandezGFR-NON AF HONDURAN>60Normal>=60The [facility] HospitalComment on above:Performed By: #### CBC #### [facility] [address] [address] [address] Chari LantiguaGlobulin (S) [Mass/Vol]3.4 g/dLNormalThe [facility] HospitalComment on above:Performed By: #### CBC #### [facility] [address] [address] [address] Chari LantiguaGlucose [Mass/Vol]120 mg/dLCritically rxjd46-371Adx [facility] HospitalComment on above:Performed By: #### CBC #### [facility] [address] [address] [address] Chari LantiguaPotassium [Moles/Vol]4.7 mmol/LNormal3.5-5.1The [facility] Comment on above:Performed By: #### CBC #### [facility] [address] [address] [address] Chari LantiguaProtein [Mass/Vol]7.4 g/dLNormal6.4-8.2The [facility] Comment on above:Performed By: #### CBC #### [facility] [address] [address] [address] Chari LantiguaSodium [Moles/Vol]142 mmol/ZSbzlef201-334Ewx [facility] Comment on above:Performed By: #### CBC #### [facility] [address] [address] [address] Chari LantiguaUrea nitrogen [Mass/Vol]21.0 mg/dLCritically high7.0-18.0The [facility] HospitalComment on above:Performed By: #### CBC #### [facility] [address] [address] [address] Chari LantiguaUrea nitrogen/Creatinine [Mass ratio]25.9 mg/mgNoalThe [facility] HospitalComment on above:Performed By: #### CBC #### [facility] [address] [address] [address] Chari Harris RANDOMon 52-31-9635Qkdeixxfu Ql (U)NegativeNormalNEGATIVEThe [facility] HospitalComment on above:Performed By: #### CBC #### [facility] [address] [address] [address] Chari LantiguaClarity (U)CLEARNormalCLEARThe [facility] HospitalComment on above: Performed By: #### CBC #### [facility] [address] [address] [address] Chari Fitzpatricklor (U)YELLOWNormalYELLOWAdams County HospitalComment on above: Performed By: #### CBC #### [facility] [address] [address] [address] Chari LantiguaGlucose Ql (U)NegativeNormalNEGATIVEAdams County HospitalComment on above:Performed By: #### CBC #### [facility] [address] [place] [address] Dr. Chari LantiguaHemoglobin Ql (U)NegativeNormalNEGVeterans Health Administration Comment on above:Performed By: #### CBC #### [facility] [address] [place] [address] Dr. Chari LantiguaKetones Ql (U)NegativeNormalNEGATIVEAdams County HospitalComment on above:Performed By: #### CBC #### [facility] [address] [place] [address] Dr. Chari LantiguaLEUKOCYTESNegativeNormalNEGATIVEAdams County HospitalComment on above:Performed By: #### CBC #### [facility] [address] [place] [address] Dr. Chari LantiguaNitrite Ql (U)NegativeNormalNEGATIVEAdams County HospitalComment on above:Performed By: #### CBC #### [facility] [address] [place] [address] Dr. Chari LantiguapH (U)6.0 [pH]Normal5-9The [facility] HospitalComment on above: Performed By: #### CBC #### [facility] [address] [place] [address] Dr. Chari LantiguaSPEC GRAVITY1.778Fdtxvk0.005-<=1.025The [facility] HospitalComment on above:Performed By: #### CBC #### [facility] [address] [place] [address] Dr. Chari LantiguaUA PROTEINNegativeNormalNEGATIVE/ TRACEThe [facility] Comment on above:Performed By: #### CBC #### [facility] [address] [place] [address] Dr. Chari LantiguaUrobilinogen Qn (U)0.2 {Kyle'U}/dLNormal0.2 - 1.0The [facility] HospitalComment on above:Performed By: #### CBC #### [facility] [address] [address] [address] Chari LantiguaPROF CHEM 8 (BAS METB)on 91-07-5848Cxdvz gap [Moles/Vol]11.3 mmol/LNormalThe [facility] HospitalComment on above:Performed By: #### CBC #### [facility] [address] [address] [address] Chari LantiguaCalcium [Mass/Vol]8.8 mg/dLNormal8.5-10.1[facility] Comment on above:Performed By: #### CBC #### [facility] [address] [address] [address] Chari LantiguaChloride [Moles/Vol]103 mmol/ROsimgq18-724Qbz [facility] Comment on above:Performed By: #### CBC #### [facility] [address] [place], [place] [address] Dr. Chari LantiguaCO2 [Moles/Vol]29.2 mmol/YHavpvo73.0-32.0The [facility] Comment on above:Performed By: #### CBC #### [facility] [address] [address] [address] Chari LantiguaCreatinine [Mass/Vol]0.72 mg/dLNormal0.70-1.30The [facility] HospitalComment on above:Performed By: #### CBC #### [facility] [address] [address] [address] Chari HernandezGFR-AF HONDURAN>60Normal>=60The [facility] HospitalComment on above:Performed By: #### CBC #### [facility] [address] [address] [address] Chari HernandezGFR-NON AF HONDURAN>60Normal>=60The [facility] HospitalComment on above:Performed By: #### CBC #### [facility] [address] [address] [address] Chari LantiguaGlucose [Mass/Vol]133 mg/dLCritically wkvl80-177Bxp [facility] HospitalComment on above:Performed By: #### CBC #### [facility] [address] [place], [place] [address] Dr. Chari LantiguaPotassium [Moles/Vol]4.5 mmol/LNormal3.5-5.1The [facility] Comment on above:Performed By: #### CBC #### [facility] [address] [place], [place] [address] Dr. Chari LantiguaSodium [Moles/Vol]139 mmol/ARodwbd541-974Tlf [facility] Comment on above:Performed By: #### CBC #### [facility] [address] [address] [address] Chari LantiguaUrea nitrogen [Mass/Vol]16.0 mg/dLNormal7.0-18.0[facility] HospitalComment on above:Performed By: #### CBC #### [facility] [address] [address] [address] Chari Shaver nitrogen/Creatinine [Mass ratio]22.2 mg/mgNormalThe [facility] HospitalComment on above:Performed By: #### CBC #### [facility] [address] [address] [address] Chari LantiguaSURGICAL PATHOLOGYon [id number] ReportSurgical Pathology Report Case: [id number] Authorizing Provider: Hugo Garcia MD Collected: 04/12/2022 [...] NEEDLE BIOPSY RIGHT, posterior x 2 [facility] ClinicClinical Historyelevated PSACleveland ClinicDiagnosis Comment Within parts B and C, left anterior and left posterior, are small foci of atypical glands present. Immunohistochemical staining with PIN 4 cocktail (p63, high molecular weigh cytokeratin, p504s) is performed and shows absent staining with basal cell markers p63 and high molecular weight cytokeratinand weak patchy staining with p504s. While the glands appear atypical, insufficient architectural and/or cytologic atypia is present for a definite diagnosis of carcinoma. Laboratory Developed Test (LDT) Disclaimer: Performance characteristics of immunohistochemical, immunofluorescent and chromogenic in-situ hybridization tests have been determined by the performing laboratory within [facility] s Annette Lester Pathology [facility] Laboratory Medicine [place] [facility], [facility] or [facility]) in a manner consistent with CLIA requirements. One or more of these tests have not been cleared or approved by the FDA. [facility] is regulated under CLIA as qualified to perform high-complexity testing. These tests are used for clinical purposes. They should not be regarded as investigational or for research. Positive and negative controls stain appropriately.[facility]erry HospitalFINAL DIAGNOSISA. Prostate, left mid anterior transition zone, biopsy: [...] biopsy: - Benign prostate tissue. JOLENE/laurie 04/17/2022 [facility] HospitalGross DescriptionA. PROSTATE NEEDLE BIOPSY LEFT Received in alcoholic [...] one segment and one fragment of cylindrical tissuemeasuring 1.4 x 0.1 x 0.1 cm, bae [...] in one cassette. Gross examination performed at [facility], [facility] [place] [address] 04/12/2022 10:13 PM [facility] HospitalPerforming LabDiagnostic interpretation performed at [facility], [facility] [address] CLIA# [id number] Meat Manager: Gutierrez Jha M.D.[facility] HospitalUA DIP, URINE (POC) on 97-25-6738IUVZFSDNN UA (POCT)NegativeNegativeMartins Ferry HospitalCLARITY UA (POCT)ClearMartins Ferry HospitalCOLOR UA (POCT)YellowMartins Ferry HospitalGLUCOSE UA (POCT)NegativeNegative mg/dLMartins Ferry HospitalHEMOGLOBIN/BLOOD UA (POCT)Negative NegativeMartins Ferry HospitalKETONE UA (POCT)NegativeNegative mg/dLMartins Ferry Hospital LEUKOCYTES UA (POCT)NegativeNegativeMartins Ferry HospitalNITRITE UA (POCT)Negative NegativeMartins Ferry HospitalPH UA (POCT)6.04.5 - 8.0[facility] HospitalProtein Ql (U) NegativeNegative mg/dLMemorial Health SystemPECIFIC GRAVITY UA (POCT)1.0251.005 - 1.030[facility] HospitalUROBILINOGEN UA (POCT)0.2 E.U./dLNormal E.U./dLMartins Ferry HospitalUS TRANSRECTAL PROSTATE (TRUS) (POC) GUKI USE ONLYon 87-00-0815Pnjhxhkqg ClinicCovid-19 PCR (CVDTBH)on 53-77-5754PEVK-CoV-2 (COVID-19) RNA ILA+probe Ql (Unsp spec)DetectedCritically abnormalNOT DETECTEDThe [facility] HospitalComscheurer hospital on above:Result Comment: This test is not yet approved or cleared by the [place] FDA. When there are no FDA-approved or cleared tests available, and other criteria are met, FDA can make tests available under an emergency access mechanism called an Emergency Use Authorization (EUA). The EUA for this test is supported by the [place] of Health and Human Service's (HHS's) declaration [...] which the test may no longer be used).Performed By: #### CVDTBH #### [facility] [address] [place] [address] Dr. Chari Balderas AND Chanda AGon 69-48-6467BAQINUUQB A AGNegativeNormal NEGATIVE SEE COMMENTThe [facility] HospitalComment on above:Performed By: #### INFLUAB #### [facility] [address] [place] [address] Dr. Chari Armas AGNegativeNormalNEGATIVE SEE COMMENTThe [facility] HospitalComment on above:Performed By: #### INFLUAB #### [facility] [address] [place] [address] Dr. Chari LantiguaINTERNAL CONTROLSWithin Normal LimitsNormalWithin Normal Limits The [facility] HospitalComment on above:Performed By: #### INFLUAB #### [facility] [address] [place] [address] Dr. Chari Deluna AUTO DIFFon 87-84-1740MGQB #0.0 103/ulNormal0.0-0.1The [facility] HospitalComment on above:Performed By: #### CBC #### [facility] [address] [place] [address] Dr. Chari LantiguaBasophils/100 WBC (Bld)0.3 %Normal0.2-2.0The [facility] Comment on above:Performed By: #### CBC #### [facility] [address] [place] [address] Dr. Marcelino ChangEO #0.2 103/ulNormal0.0-0.7The [facility] HospitalComment on above: Performed By: #### CBC #### [facility] [address] [place] [address] Dr. Chari Hernandezosinophils/100 WBC (Bld)3.1 %Normal0.9-7.0The [facility] on above:Performed By: #### CBC #### [facility] [address] [place] [address] Dr. Chari Hernandezrythrocyte distribution width (RBC) [Ratio]13.2 %Teokgk04.0-15.0 The [facility] HospitalComment on above:Performed By: #### CBC #### [facility] [address] [place] [address] Dr. Chari LantiguaHematocrit (Bld) [Volume fraction]43.4 %Zajymb02.0-54.0The [facility] HospitalComment on above:Performed By: #### CBC #### [facility] [address] [place] [address] Dr. Chari LantiguaHemoglobin (Bld) [Mass/Vol]14.5 g/vWWopoyy09.0-18.0The [facility] HospitalComment on above:Performed By: #### CBC #### [facility] [address] [place] [address] Dr. Chari Hurley #0.03 10e3/ulNormal0.00-0.03The [facility] HospitalComment on above:Performed By: #### CBC #### [facility] [address] [place] [address] Dr. Chari Hurley %0.4 %Normal0.0-0.5The [facility] HospitalComment on above: Performed By: #### CBC #### [facility] [address] [place] [address] Dr. Chari PattersonH #1.7 103/ulNormal1.2-3.8The [facility] HospitalComment on above:Performed By: #### CBC #### [facility] [address] [place] [address] Dr. Chari Gomphocytes/100 WBC (Bld)23.1 %Sdbksj78.5-60.0The [facility] HospitalComment on above:Performed By: #### CBC #### [facility] [address] [place] [address] Dr. Chari Myers DIFF REQNONormalThe [facility] HospitalComment on above: Performed By: #### CBC #### [facility] [address] [place] [address] Dr. Chari Shoemaker (RBC) [Entitic mass]31.3 trZckcls59.9-34.0The [facility] HospitalComment on above:Performed By: #### CBC #### [facility] [address] [place] [address] Dr. Chari Shoemaker (RBC) [Mass/Vol]33.4 g/zFKfaqki57.9-35.2The [facility] HospitalComment on above:Performed By: #### CBC #### [facility] [address] [place] [address] Dr. Chari Wilhelm (RBC) [Entitic vol]93.7 gNZushpa43.0-94.0The [facility] HospitalComment on above:Performed By: #### CBC #### [facility] [address] [place] [address] Dr. Chari Corrales #0.9 103/ulCritically high0.3-0.8The [facility] Comment on above:Performed By: #### CBC #### [facility] [address] [place] [address] Dr. Chari Finkocytes/100 WBC (Bld)12.1 %Critically high1.7-12.0The [facility] HospitalComment on above:Performed By: #### CBC #### [facility] [address] [place] [address] Dr. Chari Franco #4.6 103/ulNormal1.4-6.5The [facility] HospitalComment on above:Performed By: #### CBC #### [facility] [address] [place] [address] Dr. Yilan ChangNeutrophils/100 WBC (Bld)61.0 %Zpbwav82.0-75.0The [facility] HospitalComment on above:Performed By: #### CBC #### [facility] [address] [place] [address] Dr. Chari Weinerlet mean volume (Bld) [Entitic vol]8.2 fLCritically low 9.5-13.5The [facility] HospitalComment on above:Performed By: #### CBC #### [facility] [address] [place] [address] Dr. Chari LantiguaPLT219 103/rsSsjqyk957-254Yms [facility] HospitalComscheurer hospital on above: Performed By: #### CBC #### [facility] [address] [place] [address] Dr. Chari LantiguaRBC4.63 106/ulCritically low4.70-6.10The [facility] HospitalComment on above:Performed By: #### CBC #### [facility] [address] [place] [address] Dr. Chari LantiguaWBC7.5 103/ulNormal4.0-11.0The [facility] HospitalComment on above: Performed By: #### CBC #### [facility] [address] [place] [address] Dr. Chari LantiguaGLYCOHEMOGLOBIN A1Con 64-48-2564XOR RECOMMENDATIONSEE BELOWNormal The [facility] HospitalComscheurer hospital on above:Result Comment: ADA RECOMMENDED LIMIT 4.0 - 6.0 ADA THERAPEUTIC TARGET < 7.0 ACTION SUGGESTED > 7.0Performed By: #### CBC #### [facility] [address] [place] [address] Dr. Chari LantiguaGlucose [Mass/Vol]140 mg/dLNormalThCleveland Clinic Akron GeneralComscheurer hospital on above:Performed By: #### CBC #### [facility] [address] [place] [address] Dr. Chari LantiguaHbA1c (Bld) [Mass fraction]6.5 %Critically high4.5-6.2The [facility] HospitalComment on above:Performed By: #### CBC #### [facility] [address] [address] [address] Chari CollinsID PROFILEon 70-91-2071COUP-HDL RATIO NORMSSt. Rita's HospitalComment on above:Result Comment: 3.3 - 4.4 LOW RISK 4.4 - 7.1 AVERAGE RISK 7.1 - 11.0 MODERATE RISK >11.0 HIGH RISKPerformed By: #### CMP, LIPID #### [facility] [address] [address] [address] Chari LantiguaCholesterol [Mass/Vol]139 mg/dLNormal<=200[facility] Comment on above:Performed By: #### CMP, LIPID #### [facility] [address] [address] [address] Chari LantiguaCholesterol in HDL [Mass/Vol]42 mg/dKOahynk92-19RmsAdams County HospitalComment on above:Performed By: #### CMP, LIPID #### [facility] [address] [address] [address] Chari LantiguaCholesterol in LDL [Mass/Vol]71.4 mg/dLProMedica Toledo HospitalComment on above:Performed By: #### CMP, LIPID #### [facility] [address] [place] [address] Dr. Chari Gonzalesesterwili.total/Cholesterol in HDL [Mass ratio]3.3 {ratio} NormalAdams County HospitalComment on above:Performed By: #### CMP, LIPID #### [facility] [address] [place] [address] Dr. Chari WillettL NORMAL> or = 60 mg/dl - LOW CARDIOVASCULAR RISK <40 mg/dl - HIGH CARDIOVASCULAR RISKProMedica Toledo HospitalComment on above:Performed By: #### CMP, LIPID #### [facility] [address] [place] [address] Dr. Chari LantiguaLDL CALC NORMALSEE [facility]Hyde Memorial HospitalComment on above:Result Comment: <100 mg/dl OPTIMAL 100 - 129 mg/dl NEAR OR ABOVE OPTIMAL 130 - 159 mg/dl BORDERLINE HIGH 160 - 189 mg/dl HIGH >190 mg/dl VERY HIGH Performed By: #### CMP, LIPID #### [facility] [address] [address] [address] Chari LantiguaTriglyceride [Mass/Vol]128 mg/dLNormal<=150The [facility] Comment on above:Performed By: #### CMP, LIPID #### [facility] [address] [address] [address] Chari LantiguaVLDL CALC25.6 mg/dLNormalThe [facility] HospitalComment on above: Performed By: #### CMP, LIPID #### [facility] [address] [place] [address] Dr. Chari LantiguaPROEloina 14(COMP METB)on 16-11-1848Npdqeli [Mass/Vol]3.6 g/dLNormal 3.4-5.0The [facility] HospitalComment on above:Performed By: #### CMP, LIPID #### [facility] [address] [place] [address] Dr. Chari LantiguaAlbumin/Globulin [Mass ratio]1.2 {ratio}NormalThe [facility] HospitalComment on above:Performed By: #### CMP, LIPID #### [facility] [address] [place] [address] [Catalytic activity/Vol]71 U/SKcdtbe36-400Gen [facility] HospitalComment on above:Performed By: #### CMP, LIPID #### [facility] [address] [place] [address] Dr. Chari Smith [Catalytic activity/Vol]38 U/HJxkazm69-77Jxb [facility] HospitalComment on above:Performed By: #### CMP, LIPID #### [facility] [address] [place] [address] Dr. Chari Sanches gap [Moles/Vol]10.3 mmol/LNormalThe [facility] Comment on above:Performed By: #### CMP, LIPID #### [facility] [address] [place] [address] Dr. Chari Mcnair [Catalytic activity/Vol]26 U/JEtswdq33-58Vbj [facility] HospitalComment on above:Performed By: #### CMP, LIPID #### [facility] [address] [address] [address] Chari LantiguaBilirubin [Mass/Vol]0.7 mg/dLNormal0.2-1.0The [facility] Comment on above:Performed By: #### CMP, LIPID #### [facility] [address] [place] [address] Dr. Chari LantiguaCalcium [Mass/Vol]8.5 mg/dLNormal8.5-10.1The [facility] Comment on above:Performed By: #### CMP, LIPID #### [facility] [address] [place] [address] Dr. Chari LantiguaChloride [Moles/Vol]105 mmol/HHcpgeu15-371Anv [facility] Comment on above:Performed By: #### CMP, LIPID #### [facility] [address] [place] [address] Dr. Chari LantiguaCO2 [Moles/Vol]30.3 mmol/JGhzmnq83.0-32.0The [facility] Comment on above:Performed By: #### CMP, LIPID #### [facility] [address] [place] [address] Dr. Chari LantiguaCreatinine [Mass/Vol]0.77 mg/dLNormal0.70-1.30The [facility] HospitalComment on above:Performed By: #### CMP, LIPID #### [facility] [address] [place] [address] Dr. Chari HernandezGFR-AF HONDURAN>60Normal>=60The [facility] HospitalComment on above:Performed By: #### CMP, LIPID #### [facility] [address] [place] [address] Dr. Chari HernandezGFR-NON AF HONDURAN>60Normal>=60The [facility] HospitalComment on above:Performed By: #### CMP, LIPID #### [facility] [address] [place] [address] Dr. Chari LantiguaGlobulin (S) [Mass/Vol]3.0 g/dLNormAkron Children's HospitalComment on above:Performed By: #### CMP, LIPID #### [facility] [address] [place] [address] Dr. Chari LantiguaGlucose [Mass/Vol]149 mg/dLCritically fqnk87-780Pgf [facility] HospitalComment on above:Performed By: #### CMP, LIPID #### [facility] [address] [place] [address] Dr. Chari LantiguaPotassium [Moles/Vol]4.6 mmol/LNormal3.5-5.1The [facility] Comment on above:Performed By: #### CMP, LIPID #### [facility] [address] [place] [address] Dr. Chari LantiguaProtein [Mass/Vol]6.6 g/dLNormal6.4-8.2The [facility] Comment on above:Performed By: #### CMP, LIPID #### [facility] [address] [place] [address] Dr. Chari LantiguaSodium [Moles/Vol]141 mmol/VHfikqu307-925Hqo [facility] Comment on above:Performed By: #### CMP, LIPID #### [facility] [address] [place] [address] Dr. Chari LantiguaUrea nitrogen [Mass/Vol]12.0 mg/dLNormal7.0-18.0[facility] HospitalComment on above:Performed By: #### CMP, LIPID #### [facility] [address] [place] [address] Dr. Chari LantiguaUrea nitrogen/Creatinine [Mass ratio]15.6 mg/mgNoFayette County Memorial HospitalComment on above:Performed By: #### CMP, LIPID #### [facility] [address] [place] [address] Dr. Chari LantiguaCT FOOT RT WO CONon 13-90-3472ET FOOT RT WO CONEXAMINATION: CT FOOT RT WO CON HISTORY: Idiopathic [...] Electronically authenticated by: CHAPIS HUANG Date: 2021-11-06 09:52ProMedica Toledo HospitalMRI PROSTATE WO/W IVCONon 38-48-0626[facility] HOMOCYSTEINEon 94-75-8151Swyewtqu(e)ine, Plasma7.7 umol/LNormal0.0-17.2[facility] HospitalComment on above:Performed By: #### HOMCY #### [facility] [address] [address] [address] Chari Glez-BETA 2 GLYCOPROTEIN 1on 88-61-3619UZEM B2GP1 IGG0.1 g units Normal0.0-19.9The [facility] CenterComment on above:Performed By: #### 87025, 05800 #### [facility] [address] [place] [address], LOVELACE WOMEN'S HOSPITALANTI B2GP1 IGM1.7 m unitsNormal0.0-19.9The [facility] CenterComment on above:Performed By: #### 35954, 38390 #### [facility] [address] [place] [address], L[facility] WOMEN'S HOSPITALANTICARDIOLIPIN ANTIBODYon 93-23-7406QJXPNTBNIKA IGG1.6 GPL Normal0.0-22.9The [facility] CenterComment on above:Performed By: #### 96123, 34212 #### [facility] [address] [place] [address], USACARDIOLIPIN IGM0.9 MPLNormal0.0-10.9The [facility] CenterComment on above:Performed By: #### 83617, 57904 #### [facility] [address] [place] [address], USAANTITHROMBIN III ACTIVITYon 16-33-2590FU 3 OCRVGTGR474 % Bpsryc31-559Krr [facility] CenterComment on above:Performed By: #### 77665, 22325, 81954, 69682 #### [facility] [address] [place] [address], LOVELACE WOMEN'S HOSPITALFACTOR V LEIDEN R506Q MUTATION 73744pr 28-41-1732ZJJJVS V LEIDENHeterozygousAbnoalThe [facility] CenterComment on above:Result Comment: Indication for testing: Assess genetic risk for thrombosis. HETEROZYGOUS: One copy of the factor V Leiden variant, c.1601G>A; p.Kip502Ihn, was detected. This is associated with activated [...] function in the F5 gene variant c.1601G>A (p.Mfz974Koo). Legacy nomenclature: R506Q (1691G>A) CLINICAL SENSITIVITY: 20-50 percent of individuals with an isolated VTE have the FVL variant. METHODOLOGY: Polymerase chain reaction and fluorescence monitoring. ANALYTICAL SENSITIVITY AND SPECIFICITY: 99 percent. LIMITATIONS: Diagnostic errors can occur due to rare sequence variations. F5 gene mutations, other than p.Nny642Qjy, will not be detected. This test was developed and its performance characteristics determined by [employer]. It has not been cleared or approved by the [place] Food and Drug Administration. This test was performed in a CLIA certified laboratory and is intended for clinical purposes. Counseling and informed consent are recommended for genetic testing. Consent forms are available online. Performed By: [employer] [address] [place] [id number] Meat Manager: RASHAAD Napoles SPECIMENWhpenobscot bay medical center BloodNoWilson Street HospitalLUPUS ANTICOAGULANTon 29-81-0894MQYKW ANTICOAGULNegativeNormalNEGATIVEThe [facility] CenterComment on above:Result Comment: BY HEXAGONAL PHASE PHOSPHOLIPID METHODOLOGYPerformed By: #### 09251, 53002, 85253, 83221 #### [facility] [address] [place] [address], L[facility] WOMEN'S HOSPITALPROTEIN C ACTIVITYon 69-94-8323RLXJBYK C ZLDZK448 %Normal 60-140The [facility] CenterComment on above:Performed By: #### 69581, 18610, 03336, 90032 #### [facility] [address] [place] [address], USAPROTEIN S ACTIVITYon 80-26-4745FEEEMIJ S ACTIV81 %Normal 60-165The [facility] CenterComment on above:Performed By: #### 65758, 39591, 91796, 40786 #### [facility] [address] [place] [address], USAPROTHROMBIN (F2) [id number] 92-86-4108KMLFHJROUIA FRET ( PCR AND FRET)NegativeParkview Health Montpelier HospitalComment on above:Result Comment: Indication for testing: Assess genetic risk for thrombosis. NEGATIVE: The Factor II, prothrombin Z75530D mutation, was not detected. Other causes of [...] M.D., Ph.D. 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 PATHOGENIC VARIANT TESTED: F2 c.*97G>A (J12282R). CLINICAL SENSITIVITY FOR VENOUS THROMBOSIS: Approximately 10 percent. METHODOLOGY: Polymerase chain reaction and fluorescence monitoring. ANALYTICAL SENSITIVITY AND SPECIFICITY: 99 percent. LIMITATIONS: Diagnostic errors can occur due to rare sequence variations. F2 gene variants, other than c.*97G>A (U58363C), will not be detected. This test was developed and its performance characteristics determined by [employer]. It has not been cleared or approved by the US Food and Drug Administration. This test was performed in a CLIA certified laboratory and is intended for clinical purposes. Counseling and informed consent are recommended for genetic testing. Consent forms are available online. Performed By: [employer] [address] [place] [address] Meat Manager: MICHOACANO Napoles PCR SPECIMENWhole Crystal Clinic Orthopedic CenterCardiovascular Lab Reporton 11-19-2020 [facility]Un[facility] Patient Name: Marco Antonio Benitez [facility] Von MR #: [id number] Department of Physician: Donna Faith M.D. Division of Service Date: 11/18/2020 Cardiology Birthdate: 1955 Adult Cardiovascular Room #: [address] [place] [address] Cardiovascular Laboratory Report FINAL IMPRESSIONS: 1. Severe, [...] the left radial artery was obtained. A 6-South Korean 11 cm sheath was inserted without difficulty. [...] Fisher M.D. Date Trans: 11/19/2020 05:18 A/aidan DN_[id number] cc: Annette Block M.D. [address] [place] [address] [place] [address] CT CARDIAC SCORINGon [id number] CT CARDIAC SCORINGAddendum Begins Patient Name: MARCO ANTONIO BENITEZ ADDENDUM: [...] INDICATION: Hyperlipidemia, unspecified. COMPARISON: None. ACCESSION NUMBER(S): [id number] ORDERING CLINICIAN: ANNETTE BLOCK TECHNIQUE: Using prospective [...] increased >800 Lyubov et al. JCCT 2016 (http://dx.doi.org/10.1016/j.jcct.2016.11.003) GARCIA Percentile In general, greater than 75th [...] Calcification can be calcuate using link below https://www.garcia-nhlbi.org/MESACHDRisk/[email or web address]/RiskScore.aspx Carroll zapien al. JACC 2014 (http://dx.doi.org/10.1016/j.j acc.2015.08.035) Reading Railroad Engineer: Dr. Vaughn Park, Date: 10/24/2020 11:12 am Electronically signed by: MCKINLEY FARR MDPhoenixville Hospital Lower Ext/No Jt/w/oon 40-59-7381Ejfpg Ext/No Jt/w/[address] [address]Hvmzi Ext/No Jt/w/oMR#: [id number] Acct: [id number]: MARCO ANTONIO BENITEZ Rep #: [id number]: 1955 Mic 63 From: Vincent Grier MDPCP: OUT OF TOWN DOCTOR Status: REG CLIStudy: Lower Ext/No Jt/w/o Date of Exam: 06/10/18Exam# [id number] Ordering Dr: Erin MinayaADDENDUM by Dajuan Camejo MD on 06/11/18 at 1438 ADDENDUM ADDENDUM:Study is compared with previous plain film and outside bone scan from 2016.Little significant change noted from the previous studies. The bone scansuggests fracture in the fourth metatarsal which is also noted on therecent MRI.The postoperative changes described on the MRI are also present on theplain film.Electronically Signed:Behzad Camejo MD at 14:38 ESTTel , Service support , 12 1435Date cc: Erin MTECALFM; OUT OF [facility] *SignedADDENDUM by Dajuan Camejo MD on 06/11/18 at 1438 ADDENDUM ADDENDUM:St udy is compared with previous plain film and outside bone scan from 2016.Little significant change noted from the previous studies. The bone scansuggests fracture in the fourth metatarsal which is also noted on therecent MRI.The postoperative changes described on the MRI are also present on theplain film.Electronically Signed:Behzad Camejo MD at 14:38 ESTTel , Service support , 12 1436Date cc: Erin Minaya DPM; OUT OF TOWN DOCTOR *SignedADDENDUM by Dajuan Camejo MD on 06/11/18 at 1438ORDER #: [id number] MRI/Lower Ext/No Jt/w/o108/12/17 1445Date cc: Erin Minaya DPM; OUT OF TOWN DOCTOR *SignedADDENDUM by Dajuan Camejo MD on 06/11/18 [id number] #: [id number] MRI/Lower Ext/No Jt/w/o108/12/17 1445Date cc: Erin Minaya DPM; OUTOF TOWN DOCTOR *SignedSTUDY: MRI RIGHT MIDFOOTREASON FOR EXAM: Male, 63 years old. Pain.TECHNIQUE: Standardized fat and water weighted pulse sequences wereobtained in all 3 orthogonal planes.COMPARISON: None. 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 Normal calcaneocuboidarticulation. Normal navicular-cuneiform articulations. There is milddegenerative arthrosis [...] region. Normal extensordigitorum brevis muscle.Normal subcutis adipose spa ce. ORDER #: [id number] MRI/Lower Ext/No Jt/w/oIMPRESSION:Postoperative changes are seen with fusion at the second tarsometatarsalarticulation. 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.Marrow edema with bone bruise or stress injury of the fourth metatar terrence.Arthritic changes.Electronically Signed:Vincent Grier MD at 21:17 ESTTel , Service support , PA: Erin Minaya DPM; OUT OF TOWN DOCTOR Nursery Nurse:[facility]igned[facility] Vital Signs Date TimeVital SignValuePerforming RgyejjytlTykvrfdi05-74-9725 11:49-0400Body oeshho86.5 kgAnnette Block MD Work Phone: [facility]09-02-2025 09:12-0400 Body ogfhej569.7 cmGina Risaliti SHEET METAL LAYOUT WORKER Work Phone: [facility]iggzoLaf[facility] CenterKuoemzogbs32-43-5037 09:12-0400Body mass index (BMI) [Ratio]33.45 kg/m2Gina Risaliti SHEET METAL LAYOUT WORKER Work Phone: [facility]iggzoL[facility] CenterHmrpqxtlre98-46-7534 09:12-0400Body cwbfyb34.79 kgGina Risaliti SHEET METAL LAYOUT WORKER Work Phone: [facility]zoL[facility] CenterTwunjhlmcb96-17-4976 09:12-0400Diastolic blood xexdaqkp82 mm[Hg]Yudy Risaliti SHEET METAL LAYOUT WORKER Work Phone: GiggzoL[facility] CenterWzzwzntleb55-65-1621 09:12-0400Heart rate67 /min Yudy Risaliti SHEET METAL LAYOUT WORKER Work Phone: GiggzoLafayette [facility] CenterFwuxyskrvz55-18-2848 09:12-8676NpY8% (BldA) [Mass fraction]97 %Yudy Risaliti SHEET METAL LAYOUT WORKER Work Phone: [employer] Cgxnaocsek72-05-8507 09:12-0400Systolic blood rayvzggj397 mm[Hg]Yudy Risaliti SHEET METAL LAYOUT WORKER Work Phone: [employer] Iszvwaibzc11-63-4805 17:20-0400Body mass index (BMI) [Ratio]32.69 kg/m2Paabby Amanda DO Work Phone: noLafayette [facility] CenterPwwhuogpvv40-47-3998 17:20-0400Body temperature 97.39 [degF]Marco Antonio Amanda DO Work Phone: NOLafayette Regional Health CenterNeukizerha39-00-0612 17:20-0400Body tevfqq02.52 kgPaabby Amanda DO Work Phone: NOLafayette [facility] CenterFyyqgwbyeu39-44-6011 17:20-0400Diastolic blood jnkiwkcw43 mm[Hg]Marco Antonio Amanda DO Work Phone: NOLaf[facility] CenterIwtpjttfja53-04-6141 17:20-0400Heart rate72 /min Marco Antonio Amanda DO Work Phone: noLafayette [facility] CenterJtuwuktqpz99-95-3174 17:20-2587VfH4% (BldA) [Mass fraction]97 %Marco Antonio Amanda DO Work Phone: noLaf[facility] CenterCledfjlvrm75-48-1993 17:20-0400Systolic blood ukxmqudu204 mm[Hg]Marco Antonio Amanda DO Work Phone: noLafayette [facility] CenterGnmyteemmk89-34-5872 09:05-0500Body kogosk245.7 cmRchristin Block MD Work Phone: noLafayette [facility] CenterZuvcepowkh93-07-1943 09:05-0500Diastolic blood xeysgbxd56 mm[Hg]Annette Block MD Work Phone: noLafayette [facility] CenterVrrdmtjcwm77-39-0036 09:05-0500Heart rate90 /min Annette Block MD Work Phone: noLafayette [facility] CenterNgzwszkiwj60-74-1483 09:05-2514OpZ0% (BldA) [Mass fraction]98 %Annette Block MD Work Phone: noL[facility] CenterJseqsrrxei24-99-3333 09:05-0500Systolic blood myoakrrj211 mm[Hg]Annette Block MD Work Phone: [facility] CenterGqfimhiinb02-65-4658 09:39-0500Body bowsbt710.7 cmDomingo Silva NP Work Phone: NOLafayette [facility] Health CenterQxscwirvsj69-20-7039 09:39-0500Body mass index (BMI) [Ratio]34.52 kg/f0LvonwlhDomingo Silva SHEET METAL LAYOUT WORKER Work Phone: noLafayette [facility] CenterFmovzfhxfa57-95-9023 09:39-0500Body temperature 97.9 [degF]Domingo Silva SHEET METAL LAYOUT WORKER Work Phone: NOLaf[facility] CenterXltmpjsvke36-99-7197 09:39-0500Body keyqyl638.97 kgDomingo Silva SHEET METAL LAYOUT WORKER Work Phone: NOLaf[facility] CenterGotkvbwlfa06-61-5043 09:39-0500Diastolic blood mm[Hg]Domingo Pastranaos SHEET METAL LAYOUT WORKER Work Phone: noLafayette [facility] CenterCquhenddwl35-19-9918 09:39-0500Heart rate85 /min Domingo Silva SHEET METAL LAYOUT WORKER Work Phone: noLafayette [facility] CenterOjmmhunjht28-65-9686 09:39-2353AcK0% (BldA) [Mass fraction]96 %Domingo Silva SHEET METAL LAYOUT WORKER Work Phone: noLaf[facility] CenterHtftxnqvjg70-14-2002 09:39-0500Systolic blood aisfaaqj643 mm[Hg]Domingo Silva SHEET METAL LAYOUT WORKER Work Phone: noL[facility] CenterNcykunijei75-33-1900 09:04-0400Body ztuqhk099.7 cmSum[facility] Workman PA Work Phone: noLafayette [facility] CenterIrzjjscyuo84-59-3025 09:04-0400Body mass index (BMI) [Ratio]33.82 kg/u6Ojhipu Workman PA Work Phone: noLaf[facility] CenterSinvzztqqs39-03-4662 09:04-0400Body meqqcf360.88 kgSuer Workman PA Work Phone: noLaf[facility] CenterMpyswpwieq97-83-6093 09:04-0400Diastolic blood uldhrhrv11 mm[Hg]Summer Workman PA Work Phone: noLafayette [facility] CenterXxjhbfgrnn80-16-0781 09:04-0400Heart rate80 /min Summer Workman PA Work Phone: noLafayette [facility] CenterFfsqklzqpm59-85-6526 09:04-4322NaJ2% (BldA) [Mass fraction]97 %Summer Workman PA Work Phone: noms Opvgytqasz14-31-6244 09:04-0400Systolic blood kystsabd992 mm[Hg]Summer Workman PA Work Phone: [facility] CenterMfbedayjjp45-81-9680 13:24-0400Body obmrdi268.7 Rudy Last MD Work Phone: [facility]05-31-2024 13:24-0400Body mass index (BMI) [Ratio]32.8 kg/m8ZlmcvxJevon Last MD Work Phone: [facility]05-31-2024 13:24-0400Body riresc69.85 kgJevon Last MD Work Phone: [facility]02-07-2024 09:03-0500Body rrrops684.7 cmLamara Zayrati SHEET METAL LAYOUT WORKER Work Phone: noLafayette [facility] CenterGzxvoamhiu50-12-2825 09:03-0500Body mass index (BMI) [Ratio]32.84 kg/m2Gina Risaliti SHEET METAL LAYOUT WORKER Work Phone: [facility] CenterXufpigyadq60-51-5165 09:03-0500Body gsqfnu90.98 kgGina Risaliti SHEET METAL LAYOUT WORKER Work Phone: noL[facility] CenterGoieiuzmit95-84-1123 09:03-0500Diastolic blood teletetu99 mm[Hg]Yudy Risaliti SHEET METAL LAYOUT WORKER Work Phone: noL[facility] CenterQexjwlegba06-68-0748 09:03-0500Heart rate74 /min Yudy Risaliti SHEET METAL LAYOUT WORKER Work Phone: noL[facility] CenterFjjxfxvujj37-48-8348 09:03-2868EaU1% (BldA) [Mass fraction]96 %Yudy Risaliti SHEET METAL LAYOUT WORKER Work Phone: noL[facility] CenterXdrnvkbuiu75-03-3100 09:03-0500Systolic blood mm[Hg]Yudy Risaliti SHEET METAL LAYOUT WORKER Work Phone: noLaf[facility] CenterFrqxqqmhxg80-80-5253 11:20-0400Body ijggai278.72 cmPreston Tejada Other [employer] Other 09-12-2023 11:20-0400Body mass index (BMI) [Ratio] 32.99 kg/m2Dale Tejada Other [employer] Other 09-12-2023 11:20-0400Body epmynf50.43 kgDale Tejada Other [employer] Other 09-12-2023 11:20-0400Diastolic blood qjaieiqc34 mm[Hg] Preston Tejada Other [employer] Other 09-12-2023 11:20-0400Systolic blood mm[Hg] Preston Tejada Other [employer] Other 09-15-2022 12:40-0400Body ihfkej332.72 cmDale Tejada Other [employer] Other 09-15-2022 12:40-0400Body mass index (BMI) [Ratio] 36.94 kg/m2Dale Tejada Other [employer] Other 09-15-2022 12:40-0400Body smquhq818.22 kgDale Tejada Other [employer] Other 08-25-2022 12:30-0400Body ibphvp419.72 cmRobert Nilton II Other [employer] Other 08-25-2022 12:30-0400Body mass index (BMI) [Ratio] 36.94 kg/n5Qifqhm Kinsman II Other [employer] Other 08-25-2022 12:30-0400Body alncxl775.22 kgRobert Nilton II Other [employer] Other Encounters Encounter DateEncounter TypeCare ProviderFacilityStart: 03-31-2025 End: 33-61-3731capbribjcsXCQNBK LEWIS HILLFacility:[facility] Start: 03-04-2025 End: 17-57-5853qnvygyewzfCnnbxq Hill MD Work Phone: [facility] Work Phone: Start: 03-04-2025 End: 63-05-9013Vcmtfic encounter procedurePreston Tejada MD-[facility] Work Phone: start: 03-03-2025 End: 68-02-8930Oqjuwir encounter procedurePreston Tejada MD-[facility] Work Phone: Start: 03-03-2025 End: 97-48-1272ghxgrtzmooSjwdzd Hill MD Work Phone: [facility] Work Phone: Start: 03-02-2025 End: 60-37-9096Mnhvindyr encounterSmariella Jim MD Work Phone: OrthopaedicsComment on above:Patient QuestionStart: 03-01-2025 End: 04-46-0550Deozvu outpatient visit 15 minutesBob Jim MD Work Phone: OrthopaedicsComment on above:Arthritis of right midfoot (Primary Dx); Peroneal tendinitis of lower leg, rightStart: 03-01-2025 End: 48-28-3510ntluokvgofDAIKZZ LEWIS HILLFacility:[facility] Start: 02-25-2025 End: 77-96-6979gcizzwkeddEsrrr Finneran PTNOMS [facility] Comment on above:Peroneal tendonitis, right (Primary Dx)Start: 02-25-2025 End: 44-88-0051Tksgdr flowsheetKylie Finneran PTNOMS Jay Occupational MedicineStart: 02-25-2025 End: 73-76-2729Luccsk flowsheetKylie Finneran PTNOMS [facility] MedicineStart: 02-23-2025 End: 56-71-3740Qpyvil outpatient visit 25 minutesYudy Gupta SHEET METAL LAYOUT WORKER Work Phone: noms [facility] MedicineComment on above:Pure hypercholesterolemia (Primary Dx); Prediabetes; 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 ; Generalized anxiety disorder ; Primary insomnia; Vitamin D deficiency; Osteopenia of multiple sites; Medicare annual wellness visit, subsequent; ACP (advance care planning)Start: 02-23-2025 End: 66-63-2977Udyngdy encounter procedureYudy Iversonti SHEET METAL LAYOUT WORKER Work Phone: noms HealthcareStart: 02-23-2025 End: 41-57-5881bmqcdxongaNIQH R RISALITINot AvailableStart: 02-20-2025 End: 50-84-0483Vhpnsmfbs Result EncounterAnnette Block MD Work Phone: noms External Department UnsolicitedStart: 02-20-2025 End: 60-56-9658Sh[place]glovo Result EncounterAnnette Block MD Work Phone: noms External Department UnsolicitedStart: 02-17-2025 End: 60-93-5469brhwazptmsLwgcc Finneran PTNOMS [facility] Comment on above:Peroneal tendonitis, right (Primary Dx)Start: 02-17-2025 End: 93-45-3026Ocvzxa flowsheetKylie Finneran PTNOMS [facility] Occupational MedicineStart: 02-17-2025 End: 60-92-2640Mclsjk flowsheetKylie Finneran PTNOMS [facility] MedicineStart: 02-11-2025 End: 74-56-9887Hdnquz flowsheetKylie Finneran PTNOMS [facility] MedicineStart: 02-11-2025 End: 79-79-1077Hvzfln flowsheetKylie Finneran PTNOMS [facility] MedicineStart: 02-11-2025 End: 53-15-1904ziejjxybznIhgnp Finneran PTN[facility] Comment on above:Peroneal tendonitis, right (Primary Dx)Start: 02-09-2025 End: 06-85-3791Iiwtjj flowsheetKylie Darrellneran PTNOMS [facility]ational MedicineStart: 02-09-2025 End: 05-77-6340Qzcmjq flowsheetKylie Darrellneran PTNOMS [facility] MedicineStart: 02-09-2025 End: 31-28-2473tpbrsyhlqfUfrry Finneran PTN[facility] Comment on above:Peroneal tendonitis, right (Primary Dx)Start: 02-06-2025 End: 68-38-2347Tfavlpbpz Result EncounterGeneric External Data ProviderNOMS External Department UnsolicitedStart: 02-06-2025 End: 91-51-9505Vqnmwetpr Result EncounterGeneric External Data ProviderNOMS External Department UnsolicitedStart: 02-04-2025 End: 61-37-7260Efvdsn flowsheetKylie Ariellean PTNOMS [facility] Occupational MedicineStart: 02-04-2025 End: 26-72-8537Xjvpxi flowsheetKylie Darrellneran PTNOMS [facility] MedicineStart: 02-04-2025 End: 63-19-3288lxrojsmgaeFlggy Finneran PTN[facility] Comment on above:Peroneal tendonitis, right (Primary Dx)Start: 02-01-2025 End: 63-52-0575xxwjjialwoPwdhk Finneran PTNOMS [facility] Comment on above:Peroneal tendonitis, right (Primary Dx)Start: 02-01-2025 End: 73-37-0001Nrydlq flowsheetKylie Darrellneran PTNOMS [facility] MedicineStart: 02-01-2025 End: 96-51-5143Hkiexp flowsheetKylie Darrellneran PTNOMS [facility] Occupational MedicineStart: 01-20-2025 End: 31-34-2636Ffjylm outpatient visit 15 Fiordaliza Jim MD Work Phone: OrthopaedicsComment on above:Arthritis of right midfoot (Primary Dx); Peroneal tendinitis of lower leg, rightStart: 01-20-2025 End: 95-29-9259Tzqprrbdp Result EncounterGeneric External Data ProviderNOMS External Department UnsolicitedStart: 01-20-2025 End: 86-89-9649Ctddddwuy Result EncounterGeneric External Data ProviderNOMS External Department UnsolicitedStart: 01-20-2025 End: 31-87-1919Ddftow Aracelis Workman [place] Work Phone: UrologyComment on above:Prostate cancer (HCC) (Primary Dx)Pain in right foot [M79.671]Start: 01-19-2025 End: 14-90-2004Qtmift Brandi Jim MD Work Phone: OrthopaedicsComment on above:Pain in right foot (Primary Dx)Start: 11-20-2024 End: 85-06-1000Wvomme outpatient visit 25 minutesMarco Antonio Amanda DO Work Phone: noms SWS UCComment on above:Acute bronchitis, unspecified organism (Primary Dx)Start: 11-20-2024 End: 20-35-0947fghxdlrflqPCVX J BRUNERNot AvailableStart: 08-21-2024 End: 31-43-8576Quksvbqwl encounterDakota Dembek MANOMS SWS IMComment on above: Med RefillStart: 08-18-2024 End: 42-25-9041Cbwncn outpatient visit 25 minutesAnnette Block MD Work Phone: NOFA SWS IMComment on above:Pure hypercholesterolemia (CMS/HCC) (Primary Dx); 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 Yeimi Haqjens DO Work Phone: NOMS SWS ORTHOStart: 07-22-2024 End: 03-86-5704Bjbmge flowsheetJr. Yeimi Haqjens DO Work Phone: NORU SWS ORTHOStart: 07-22-2024 End: 34-56-7297Alqzqt follow up visit related to original Nasir Lyn SHEET METAL LAYOUT WORKER Work Phone: NOMS SWS ORTHOComment on above:History of right knee joint replacement (Primary Dx); Acute pain of right knee; Strain of right shoulder, initial encounterStart: 07-22-2024 End: 56-71-7904qyitdwbcjzDT., YEIMI Gurrola AvailableStart: 07-01-2024 End: 95-11-0416Dkhrtjvkw encounterGayle Blake LPNNDANNY SWS IMComment on above: needs rx for cough syrupStart: 07-01-2024 End: 27-02-2085Kxrjqa outpatient visit 25 minutesMictammi Silva SHEET METAL LAYOUT WORKER Work Phone: noms SWS IMComment on above:Acute cough (Primary Dx); Bronchitis; Decreased breath sounds at right lung baseStart: 07-01-2024 End: 99-94-4691kbdufaavdvCWHDASE L POULOSNot AvailableStart: 05-25-2024 End: 27-08-4716zbjbqciqgzAISOOhio State University Wexner Medical Centertart: 05-23-2024 End: 51-45-7713Nfbhmynqp Result EncounterGeneric External Data ProviderNOMS External Department UnsolicitedStart: 05-23-2024 End: 22-67-9585Ggxyndyyq Result EncounterGeneric External Data ProviderNOMS External Department UnsolicitedStart: 05-11-2024 End: 36-05-2176Zdpkeamin encounterJr. Yeimi Branden Cardenas DO Work Phone: noms SWS ORTHOComment on above:dentistStart: 04-22-2024 End: 01-00-8727Zxbevw flowsheetJr. Yeimi Otero Stepanic DO Work Phone: noms SWS ORTHOStart: 04-22-2024 End: 19-58-7892Jradkx flowsheetJr. Yeimi Branden Stepanic DO Work Phone: noms SWS ORTHOStart: 04-22-2024 End: 05-30-5895Righza outpatient visit 25 minutesJr. Yeimi Otero Stepanic DO Work Phone: NOHP SWS ORTHOComment on above:Internal derangement of right shoulder (Primary Dx)Start: 04-22-2024 End: 84-81-1044humcbwkfflFS., YEIMI CARDENASNot AvailableStart: 04-16-2024 End: 40-64-5823fgliaayaexYX., YEIMI CARDENASNot AvailableStart: 04-10-2024 End: 11-29-7775Jrekpe flowsheetJr. Yeimi Otero Stepanic DO Work Phone: NOMS SWS ORTHOStart: 04-10-2024 End: 12-60-5140Ksohim flowsheetJr. Yeimi Branden Stepanic DO Work Phone: noms SWS ORTHOStart: 04-10-2024 End: 48-13-3950Jwdzqf outpatient visit 25 minutesJr. Yeimi Cardenas DO Work Phone: noms SWS ORTHOComment on above:Acute pain of right shoulder (Primary Dx); Internal derangement of right shoulderStart: 04-10-2024 End: 90-36-2801oovqhslfpqAS., YEIMI CARDENASNot AvailableStart: 03-04-2024 End: 45-90-3411bgwcrfhvouPT [facility] Work Phone: [facility] Work Phone: Start: 03-04-2024 End: 60-50-6321Btymgqa encounter procedureMD [facility] Work Phone: [facility] Work Phone: Start: 02-13-2024 End: 37-37-5341Jhgqag outpatient visit 25 minutesSugeremias VIERA Work Phone: NOXO SWS IMComment on above:Essential hypertension (CMS/HCC) (Primary Dx); 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); Prediabetes; Pure hypercholesterolemia (CMS/HCC); Generalized anxiety disorder (CMS/HCC); Primary insomnia; Medicare annual wellness visit, subsequent; ACP (advance care planning); Prostate cancer screening; Osteopenia of multiple sitesStart: 02-13-2024 End: 14-79-0682Vdocpih encounter procedureSbrady VIERA Work Phone: NOMS HealthcareStart: 02-11-2024 End: 98-29-6229Zovgoxong Result EncounterGeneric External Data ProviderNOMS External Department UnsolicitedStart: 02-11-2024 End: 70-85-8290Xkkquttll Result EncounterGeneric External Data ProviderNOMS External Department UnsolicitedStart: 74-01-0912gqpdvmtbqkXmwivc Ken Last MD Work Phone: UrologyStart: 11-22-2023 End: 64-52-2723Xsdzlfjcg Result EncounterGeneric External Data ProviderNOMS External Department UnsolicitedStart: 11-22-2023 End: 32-43-5115Rlvsnpmgk Result EncounterGeneric External Data ProviderNOMS External Department UnsolicitedStart: 11-22-2023 End: 85-53-6260Cyetqkp encounter procedureCarLane MD Work Phone: UrologyComment on above:Prostate cancer (HCC) (Primary Dx); Elevated PSAStart: 11-22-2023 End: 81-09-0391Cdalgmvnko hospital visit by physiciani 6 [employer] Q (I-Stat/1.5t/3t) Work Phone: MRI QComment on above:Prostate cancer (HCC) [C61] Start: 62-90-6627qberpqqzmuDce ProviderMRI QComment on above:MRI ResultStart: 07-26-9264R-mail encounter from [facility] ProviderMRI QStart: 07-31-2023 End: 64-63-5384Qyrqug outpatient visit 25 minutesYudy Gupta NP Work Phone: noms [facility] IMComment on above:Essential (primary) hypertension (CMS/HCC) (Primary Dx); Pure hypercholesterolemia (CMS/HCC); Prediabetes; 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); Gastroesophageal reflux disease without esophagitis; Generalized anxiety disorder (CMS/HCC); Osteopenia of multiple sites; Primary insomnia; Primary osteoarthritis involving multiple joints; Factor V Leiden (CMS/HCC); Vitamin D deficiency; History of malignant neoplasm of prostate; Morbid obesity (CMS/HCC); BMI 32.0-32.9,adultStart: 92-13-0753Gciki abstractingAnnette Block MD Work Phone: noms [facility] IMStart: 06-12-2023 End: 38-41-5113Ufogrtovc Result EncounterGeneric External Data ProviderNOME External Department UnsolicitedStart: 06-12-2023 End: 02-20-3403Ljqsncohn Result EncounterGeneric External Data ProviderNOME External Department UnsolicitedStart: 05-30-2023 End: 40-14-9417llfvbbbzxiFTBY St[facility] of God Hospitaltart: 05-22-2023 End: 53-25-4192csarsiprtdOutunu David Mikesell MD Work Phone: UrologyComment on above:Prostate cancer (HCC) (Primary Dx)Start: 05-22-2023 End: 09-38-4073Sjjsdppsrreh consultation with patientCarter Ken Last MD Work Phone: [facility]INStart: 03-05-2023 End: 03-66-5543fywbyjtacnQmmg Braun Other [facility] [employer] Other start: 51-07-1166Rmfzeo outpatient visit 15 minutes Preston Miramontes [facility] NeurosurgeryStart: 10-26-2022 End: 97-93-3918qktottjhrdUlndst Geskin MD Work Phone: UrologyComment on above:Prostate cancer (HCC) (Primary Dx)Start: 10-26-2022 End: 27-71-8657Czfchxlgrqto consultation with Jie Real MD Work Phone: [facility] MAINStart: 10-03-2022 End: 38-10-9948nljwhbfsglAX DOCTOR MISCFacility:Q4Viuwd: 07-21-2022 End: 68-33-0140cbahzwjpmtMT ANNETTE BLOCKFacility:W5Uolzs: 05-23-2022 End: 16-03-9262kiqjwskwcvSJ ANNETTE BLOCKFacility:K7Edtxk: 07-11-1602Kfocrvwnu encounterMark Anthony Real MD Work Phone: UrologyComment on above:ResultsStart: 04-12-2022 End: 02-47-8688Syyqrnd encounter procedureHugo Garcia MD Work Phone: UrologyComment on above:Elevated PSA (Primary Dx) Start: 04-11-2022 End: 35-26-1756wcvqoctpwfZW NONE LISTED REQUESTFacility:O2Okixg: 04-10-2022 Orders Migue Redman MD Work Phone: UrologyComment on above:Prostate cancer (HCC) (Primary Dx)Start: 03-08-2022 End: 64-19-4785oymlgntpgiMspk Braun Other Nort [facility] Other start: 30-71-9132Pihsrt outpatient visit 15 minutes Prestonlizzy Te[facility]adaBl[facility] NeurosurgeryStart: 03-07-2022 End: 16-81-2952Vuvtvid encounter procedureMD Annette Block Work Phone: [facility] CampusStart: 57-29-4792Zldtvmifm Sander Real MD Work Phone: UrologyComment on above:AppointmentStart: 02-15-2022 End: 50-74-6812jcchritgiwPszjcv N[place] II [facility] Other Start: 08-28-3769Bvinzg outpatient new 45 minutes Annette Callaway IIFPBecka Chambers OrthopedicsStart: 02-15-2022 End: 18-38-1344Atlzszl encounter procedureMD Annette Block Work Phone: [facility] [place] [facility] Start: 02-08-2022 End: 56-26-3927lzpzouaiamXL ANNETTE BLOCKFacility:Y5Azwlm: 01-19-2022 End: 26-82-2174ruwbjeobjfHJ ROBERT HILLFacility:W9Ksiaj: 11-23-2021 End: 16-21-6605mqipswqcajThpjy Kaouk MD Work Phone: UrologyComment on above:Prostate cancer (HCC)Start: 11-23-2021 End: 69-56-3997Vqppusbznvwd consultation with Apolonia Garcia MD Work Phone: [facility] MAINStart: 11-06-2021 End: 59-36-4713afiqflxzjxEALMLBOG CULLENFacility:H5Cbdji: 11-02-2021 End: 88-55-9441kbuhjjrccvZOGHAEZQ CULLENFacility:H1Bjtzu: 10-27-2021 End: 04-42-3576Nlgmwxtida hospital visit by physicianMri 6 Radio Main Q (I-Stat/1.5t/3t) Work Phone: MRI QComment on above:Malignant neoplasm of prostate (HCC) [C61]Start: 10-11-2021 End: 84-35-9116ckwdhdujxyPH DOCTOR MISCFacility:K9Jrqay: 11-18-2020 End: 25-60-7261riwaafvykcGJRSVH UMAIRFacility:UTMCStart: 45-26-0934Wbcwqej encounter procedureNicole HornFacility:MariyaOhioHealth Arthur G.H. Bing, MD, Cancer Centertart: 10-93-2439DpqzqkmnpdXCDLGX HILLFacility:1532Start: 08-81-7742Zxkzitgkre Facility:[id number] Procedures DateProcedureProcedure DetailPerforming ClinicianStart: 24-81-6502J-ray of lumbar spine, four viewsAnnette Block MD Work Phone: Start: 13-32-4782WDR CBC WITH AUTO DIFFRobert Sarmad Block MD Work Phone: Start: 35-22-4334ODBP PSA, DIAGNOSTICGeneric External Data ProviderStart: 16-21-5727BP FOOT 3V AP/LAT/OBL RTGeneric External Data ProviderStart: 23-32-8538BSMU URINALYSIS, WITH MICROSCOPICGeneric External Data ProviderStart: 06-23-7374Nxhnvwmcxb examination knee 1/2 viewsJr. Yeimi Cardenas DO Work Phone: Start: 56-82-4317DEJR PSA, DIAGNOSTICGeneric External Data ProviderStart: 95-90-7577Zjgsf shoulder complete minimum 2 viewsJr. Yeimi Cardenas DO Work Phone: Start: 45-68-4305D-ray of lumbar spine, four viewsMD Annette Block Work Phone: Start: 91-70-8314JUS CBC WITH AUTO DIFFGeneric External Data ProviderStart: 31-50-8096Ouxyz dip stick/tablet rgnt auto w/o microscopyBulk Order ProviderStart: 31-01-43901x rendering w/interp&postproc diff work stationCarter Ken Last MD Work Phone: Start: 63-28-1578GUH 3D POST PROCESSINGGeneric External Data ProviderStart: 01-21-1903Vsj pelvis w/o & w/contrast material Jevon Last MD Work Phone: Start: 92-39-8759POK PROSTATE WO/W IVCONGeneric External Data ProviderStart: 89-93-6109PI ECHO DOPPLER COMPLETEGeneric External Data ProviderStart: 00-64-7820WYC screeningDR ANNETTE BLOCKComment on above: Performed By: #### PSAD #### [facility] [address] [place] [address] Dr. Chari Shepherdart: 53-19-0242Ttaym iv surg pathology gross&microscopic exam Hugo Garcia MD Work Phone: Start: 23-55-4053Bk transrct prstate vol brachytx plnning spxHugo Garcia MD Work Phone: Start: 32-53-8823Igork dip stick/tablet rgnt auto w/o microscopyHugo Garcia MD Work Phone: Start: 79-61-1374DCN screeningDR ANNETTE ARVERNEComment on above:Performed By: #### PSAD #### [facility] [address] [place] [address] Dr. Chari Shepherdart: 51-06-7814O-ray of lumbar spine, six views including bending views Annette Umair Work Phone: Start: 02-15-2022 End: 86-51-5113Rxpjkr X-rayMD Annette Block Work Phone: Start: 27-27-1847Diu pelvis w/o & w/contrast material Navin Redman MD Work Phone: Start: 15-00-1611UrlxodvwnfbMrgxih Hill MD Work Phone: History of operative procedure on kneeHistory of right knee joint replacementAdalberto Lyn NP Work Phone: Plan of Treatment DateCare ActivityDetailAuthorStart: 88-11-7904Cfwye microalbumin profile DTaP,Tdap,Td Vaccine (2 - Td or Tdap)[facility] Systemtart: 54-99-8790CHGFSMHW CANCER SCREENING DISCUSSIONPROSTATE CANCER SCREENING DISCUSSIONMartins Ferry Hospital Start: 79-84-3554Oztnklqg specific antigen measurementProstate Cancer Screening DiscussionMemorial Health Systemtart: 13-01-3758Xthzuoflx for malignant neoplasm of colonNOMS HealthcareStart: 09-02-2026Medicare Annual Wellness (AWV)Medicare Annual Wellness (AWV)[facility] HealthcareStart: 02-40-9957Dkrhiflh screeningDiabetes: Retinopathy ScreeningNOMS HealthcareStart: 08-25-2025 End: 96-28-8329Dhwdhja encounter nyzfialcr83/04/2026 9:15 AM EST Office Visit [facility] [address] [place] [address] RXUX [place] [facility] MedicineStart: 08-22-2025 End: 11-62-0614Zviqk metabolic 1998 panel - Serum or PlasmaBasic metabolic panel Lab Routine Prediabetes Expected: 08/22/2025 (Approximate), Expires: 02/18/2026 [facility] Work Phone: Comment on above:Expected: 08/22/2025 (Approximate), Expires: 02/18/2026Start: 08-22-2025 End: 58-20-9565Aklimdidcs a1c with eagHemoglobin a1c with eag Lab Routine Prediabetes Expected: 08/22/2025 (Approximate), Expires: 02/18/2026N[facility] HealthcareComment on above:Expected: 08/22/2025 (Approximate), Expires: 02/18/2026Start: 05-68-2525Ewxcagmr ScreeningDiabetes ScreeningMartins Ferry Hospital Start: 07-21-2025 End: 36-91-4075Gmjqjpx encounter procedureNOMS [facility] ORTHOStart: 03-31-2025 End: 85-27-5097vzzbiqfcab54/08/2025 9:30 AM EDT [facility] [address] [address] Darryl Sinclair MD [address] [place] [address] 1 year followUrology Comment on above:1 year followStart: 02-25-2025 End: 68-77-9717jmcevyzgujMHIY [place] [facility] MedicineComment on above: ArrivedStart: 02-23-2025 End: 84-78-2971Ijjshiu encounter procedureNOMS SWS IMStart: 97-36-0249Hwphjxraw vaccinationInfluenza Vaccine (#1)[facility] Systemtart: 02-17-2025 End: 59-51-3849ldxpnqhjyq33/27/2025 5:00 PM EDT Treatment [facility] [address] [place] [phone] Mary Coffey PTNOMS [place] Occupational MedicineStart: 02-15-2025 End: 798613-membdkfiafrzsv D3 [Mass/volume] in Serum or PlasmaVitamin D 25 hydroxy Total Lab Routine Vitamin D deficiency Expected: 02/15/2025 (Approximate), Expires: 08/18/2025N[facility] HealthcareComment on above:Expected: 02/15/2025 (Approximate), Expires: 08/18/2025Start: 02-15-2025 End: 49-91-3882EYQ W Auto Differential panel - BloodCBC and differential Lab Routine Pure hypercholesterolemia (CMS/HCC) Expected: 02/15/2025 (Approximate), Expires: 08/18/2025[facility] Work Phone: Comment on above:Expected: 02/15/2025 (Approximate), Expires: 08/18/2025Start: 02-15-2025 End: 91-47-9590Nibjudlfvthhv metabolic 2000 panel - Serum or PlasmaComprehensive metabolic panel Lab Routine Pure hypercholesterolemia (CMS/HCC) Expected: 02/15/2025 (Approximate), Expires: 08/18/2025N[facility] HealthcareComment on above: Expected: 02/15/2025 (Approximate), Expires: 08/18/2025Start: 02-15-2025 End: 52-79-2153Oilok 1996 panel - Serum or PlasmaLipid panel Lab Routine Pure hypercholesterolemia (CMS/HCC) Expected: 02/15/2025 (Approximate), Expires: 08/18/2025N[facility] HealthcareComment on above:Expected: 02/15/2025 (Approximate), Expires: 08/18/2025Start: 08-22-2025Medicare Annual Wellness (AWV)Medicare Annual Wellness (AWV)[facility] HealthcareStart: 02-11-2025 End: 32-37-3862hhoszmsiveNGRD [place] Occupational MedicineComment on above: ArrivedStart: 02-09-2025 End: 70-13-7284xvhubhdady25/19/2025 7:00 AM EDT Treatment [facility] [address] [place] [phone] Mary Coffey PTNOMS [place] Occupational MedicineStart: 02-04-2025 End: 29-01-0729cukihlbqkiUNBD [place] [facility] MedicineComment on above: ArrivedStart: 02-01-2025 End: 04-63-7814yuxqxssbxb01/11/2025 6:00 PM EDT Evaluation [facility] [address] [place] [phone] Mary Coffey PT ArrivedNOMS [facility] Comment on above:ArrivedStart: 01-20-2025 End: 01-73-8177Qekhnbn encounter procedureRadiologyComment on above:RIGHT FOOT PAINStart: 01-20-2025 End: 97-67-1495Rjnzfyzh specific Ag [Mass/volume] in Serum or PlasmaPROSTATE- SPECIFIC ANTIGEN DIAGNOSTIC Lab Routine Prostate cancer (HCC) Expected: 01/20/2025 (Approximate), Expires: 04/21/2025[facility] Work Phone: comment on above:Expected: 01/20/2025 (Approximate), Expires: 04/21/2025Start: 08-18-2024 End: 52-91-2151Btmnwoa encounter gvptrwopz20/25/2025 9:15 AM EST Office Visit [facility] [address] [place] [phone] Annette Block MD [address] [place] [address] [facility] IMStart: 08-15-2024 End: 49-97-1997Onszw metabolic 1998 panel - Serum or PlasmaBasic metabolic panel Lab Routine Essential hypertension (CMS/HCC) Expected: 08/15/2024 (Approximate ), Expires: 02/12/2025[facility] Work Phone: Comment on above:Expected: 08/15/2024 (Approximate), Expires: 02/12/2025Start: 08-15-2024 End: 13-22-9498Dqxeuxmaiq a1c with eagHemoglobin a1c with eag Lab Routine Prediabetes Expected: 08/15/2024 (Approximate), Expires: 02/12/2025N[facility] HealthcareComment on above:Expected: 08/15/2024 (Approximate), Expires: 02/12/2025Start: 08-15-2024 End: 64-37-5422Rwmfarnhdjmp/Creatinine panel in random UrineMicroalbumin / creatinine urine ratio Lab Routine Essential hypertension ([facility]/HCC) Expected: 08/15/2024 (Approximate), Expires: 02/12/2025N[facility] HealthcareComment on above: Expected: 08/15/2024 (Approximate), Expires: 02/12/2025Start: 08-15-2024 End: 02-10-7493Rsqcbrjcop complete panel - UrineUrinalysis with microscopic Lab Routine Essential hypertension (CMS/HCC) Expected: 08/15/2024, Expires: 02/12/2025N[facility] HealthcareComment on above:Expected: 08/15/2024, Expires: 02/12/2025Start: 58-68-7114Rwgzn screening for proteinDiabetes: Urine Protein ScreeningNOME HealthcareStart: 07-22-2024 End: 83-98-1111Srgxcea encounter procedureNOMS [facility] ORTHOComment on above:History of right knee joint replacement (Primary Dx); Acute pain of right knee; Strain of right shoulder, initial encounterStart: 07-20-2024 End: 27-24-0389Xvxovfw encounter procedureNOMS [facility] ORTHOStart: 09-16-7437Lrjqsvc Directive DiscussionAdvance Directive DiscussionCleveland ClinicStart: 04-24-2024 End: 90-07-6887Gontsqy encounter /01/2024 9:00 AM EDT Office Visit [facility] [address] [place] [address] Jr. Yeimi Cardenas C, DO [address] [place] [address] [facility]OStart: 04-22-2024 End: 16-30-9239Jorhxoc encounter cjdlamswf59/30/2024 8:00 AM EDT Office Visit NOMColton [facility] [address] [place] [address] Jr. Yeimi Cardenas, DO [address] [place] [address] ArrivedNOMS [facility] ORTHOComment on above: ArrivedStart: 04-10-2024 End: 37-73-9082ZQ Shoulder - right WO contrastMR shoulder right wo IV contrast Imaging Routine Internal derangement of right shoulder Expected: 04/10/2024 (Approximate), Expires: 04/10/2025[facility] Work Phone: Comment on above:Expected: 04/10/2024 (Approximate), Expires: 04/10/2025Start: 04-10-2024 End: 71-83-2729Ghbuvam encounter rypmclpfu33/18/2024 11:00 AM EDT Office Visit [facility] [address] [place] [phone] Jr. Yeimi Cardenas, DO [address] [place] [address] Acute pain of right shoulderNOSANTA TERESITA [facility]OSPITAL ORTHOComment on above:Acute pain of right shoulderStart: 27-85-5235Yvdcvgvvf vaccinationInfluenza Vaccine (#1)[facility] HealthcareStart: 02-13-2024 End: 21-08-4191Qaxrvdi encounter procedureNOSANTA TERESITA [facility] IMStart: 01-29-2024 End: 183544-nlsuppownaolcg D3 [Mass/volume] in Serum or PlasmaVitamin D 25 hydroxy Lab Routine Vitamin D deficiency Expected: 01/29/2024 (Approximate), Expires: 07/31/2024N[facility] HealthcareComment on above:Expected: 01/29/2024 (Approximate), Expires: 07/31/2024Start: 01-29-2024 End: 29-08-6104QNC W Auto Differential panel - BloodCBC and differential Lab Routine Essential (primary) hypertension (CMS/HCC) Expected: 01/29/2024 (Ap proximate), Expires: 07/31/2024[facility] Work Phone: Comment on above:Expected: 01/29/2024 (Approximate), Expires: 07/31/2024Start: 01-29-2024 End: 61-00-7637Puxbxqdilaymf metabolic 2000 panel - Serum or PlasmaComprehensive metabolic panel Lab Routine Essential (primary) hypertension (CMS/HCC) Expected: 01/29/2024 (Approximate), Expires: 01/29/2024[facility] HealthcareComment on above:Expected: 01/29/2024 (Approximate), Expires: 01/29/2024Start: 01-29-2024 End: 82-66-6953Lseqq 1996 panel - Serum or PlasmaLipid panel Lab Routine Pure hypercholesterolemia (CMS/HCC) Expected: 01/29/2024 (Approximate), Expires: 07/31/2024[facility] HealthcareComment on above:Expected: 01/29/2024 (Approximate), Expires: 07/31/2024Start: 08-02-2024Medicare Annual Wellness (AWV)Medicare Annual Wellness (AWV)[facility] HealthcareStart: 43-70-4534EAPVVAHH SCREENDIABETES SCREENMemorial Health Systemtart: 50-00-9363Flwzmbhm ScreeningDiabetes Screening [facility] Systemtart: 11-29-2023 End: 81-89-7360njpvjreezq42/07/2024 12:00 PM EDT Results Only [address] [place] [address] [address] [place] [address] PSA/PROSTSPECAG DIAGMain [place] [address] Draw StationComment on above:PSA/PROSTSPECAG DIAGStart: 11-20-2023 End: 20-35-9343KIZ PROSTATE WO/W IVCONMRI PROSTATE WO/W IVCON Radiology Routine Prostate cancer (HCC) Expected: 11/20/2023, Expires: 06/20/2024[facility] Work Phone: Comment on above:Expected: 11/20/2023, Expires: 06/20/2024Start: 11-20-2023 End: 91-88-9362Okhcaijs specific Ag [Mass/volume] in Serum or Plasma PSA/PROSTSPECAG DIAG Lab Routine Prostate cancer (HCC) Expected: 11/20/2023, Expires: 02/19/2024[facility] Work Phone: Comment on above:Expected: 11/20/2023, Expires: 02/19/2024Start: 89-63-2756Bxdbh-19 Vaccine ()Covid-19 Vaccine ()[facility] Systemtart: 07-31-2023 End: 93-96-5786Fqhcquy encounter mnbobplxs73/07/2024 9:15 AM EST Office Visit [facility] [address] [facility] [address] [place] [phone] Annette Block MD [address] [facility] [address] [place] [address] Essential (primary) hypertension (CMS/HCC) (Primary Dx); Pure hypercholesterolemia (CMS/HCC); Prediabetes; 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); Gastroesophageal reflux disease without esophagitis; Generalized anxiety di sorder (CMS/HCC); Osteopenia of multiple sites; Primary insomnia; Primary osteoarthritis involving multiple joints; Factor V Leiden (CMS/HCC); Vitamin D deficiency; History of malignant neoplasm of prostate; Morbid obesity (CMS/HCC) [facility] IMComment on above:Essential (primary) hypertension (CMS/HCC) (Primary Dx); Pure hypercholesterolemia (CMS/HCC); Prediabetes; 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); Gastroesophageal reflux disease without esophagitis; Generalized anxiety disorder (CMS/HCC); Osteopenia of multiple sites; Primary insomnia; Primary osteoarthritis involving multiple joints; Factor V Leiden (CMS/HCC); Vitamin D deficiency; History of malignant neoplasm of prostate; Morbid obesity (CMS/HCC)Start: 37-40-6822Diudg screening for proteinDiabetes: Urine Protein ScreeningMoberly Regional Medical CenterStart: 71-62-5431Wmcxvzz Directive DiscussionAdvance Directive DiscussionMemorial Health Systemtart: 06-24-2023 Behavioral Health ScreeningBehavioral Health ScreeningMemorial Health Systemtart: 04-28-2023 End: 34-52-9680Ysmdxcdw specific Ag [Mass/volume] in Serum or Plasma PSA/PROSTSPECAG DIAG Lab Routine Prostate cancer (HCC) Expected: 04/28/2023, Expires: 10/27/2023[facility] Work Phone: comment on above:Expected: 04/28/2023, Expires: 10/27/2023Start: 10-01-2023Medicare Annual Wellness VisitMedicare Annual Wellness VisitMemorial Health Systemtart: 49-75-6994Qnubdswqmb A1c measurement Diabetes: Hemoglobin T4HUGLGMoberly Regional Medical CenterStart: 10-19-2022 End: 51-74-9885Hpmoqmbg specific Ag [Mass/volume] in Serum or Plasma PSA/PROSTSPECAG DIAG Lab Routine Prostate cancer (HCC) Expected: 10/19/2022, Expires: 12/19/2022[facility] Work Phone: comment on above:Expected: 10/19/2022, Expires: 12/19/2022Start: 04-65-0456TEMJQLZ DIRECTIVE DISCUSSIONADVANCE DIRECTIVE DISCUSSIONMemorial Health Systemtart: 48-57-5467HLTMBHQWOF ASSESSMENTDEPRESSION ASSESSMENTMemorial Health Systemtart: 04-10-2022 End: 46-18-4992Qgpvknht specific Ag [Mass/volume] in Serum or Plasma PSA/PROSTSPECAG DIAG Lab Routine Prostate cancer (HCC) Expected: 04/10/2022 (Approximate), Expires:03/18/2023[facility] Work Phone: Comment on above:Expected: 04/10/2022 (Approximate), Expires: 03/18/2023Start: 39-85-5467Cndhmosbb vaccinationINFLUENZA (#1)[facility] Systemtart: 65-78-1419Tflajemjqeyh Vaccine: 50+ (2 of 2 - PCV)Pneumococcal Vaccine: 50+ (2 of 2 - PCV)[facility] Systemtart: 25-70-6138Nympqtvryhna Vaccine: 65+ (2 - PCV)Pneumococcal Vaccine: 65+ (2 - PCV)[facility] Systemtart: 90-85-5527Cehgrmbncvma Vaccine: 65+ (2 of 2 - PCV)Pneumococcal Vaccine: 65+ (2 of 2 - PCV)[facility] Systemtart: 83-11-4219Tsnjftsmitlx Vaccine: 65+ Years (2 - PCV)Pneumococcal Vaccine: 65+ Years (2 - PCV)[facility] HealthcareStart: 01-16-2022 Pneumococcal Vaccine: 65+ Years (2 of 2 - PCV)Pneumococcal Vaccine: 65+ Years (2 of 2 - PCV)[facility] CenterStart: 65-48-6986FFAERGQ DIRECTIVE DISCUSSIONADVANCE DIRECTIVE DISCUSSIONMemorial Health Systemtart: 66-35-6656KVTIZIATSY ASSESSMENT DEPRESSION ASSESSMENTMemorial Health Systemtart: 98-63-0166IPRLE-19 VACCINE (5 - Booster for Moderna series)COVID-19 VACCINE (5 - Booster for Moderna series) [facility]tart: 41-14-8642Famyybeo screeningDiabetes: Retinopathy ScreeningNOME HealthcareStart: 78-57-9547JKDKHVROCRVV: 65+ (1 - PCV) PNEUMOCOCCAL: 65+ (1 - PCV)[facility] Systemtart: 19-48-3817GASWZNOSD AGE 65 AND OVER WITH 5YR LOOKBACK (#1)PNEUMOVAX AGE 65 AND OVER WITH 5YR LOOKBACK (#1) [facility] Systemt[facility]: 69-67-2519Qvfijyjzk for malignant neoplasm of colon [facility] Systemtart: 92-95-5007EVG Vaccine (1 - 1-dose 60+ series)RSV Vaccine (1 - 1-dose 60+ series)[facility] Systemtart: 12-51-8689IQGXDIQF CANCER SCREENING DISCUSSIONPROSTATE CANCER SCREENING DISCUSSIONMemorial Health Systemtart: 04-19-6767ZCTYGNIS VACCINE (1 of 2)SHINGRIX VACCINE (1 of 2)[facility] Start: 75-11-2438Hcixiltk ScreeningDiabetes ScreeningMemorial Health Systemtart: 25-58-1300GJFSNFNRL (FIT-DNA)COLOGUARD (FIT-DNA)[facility] Systemtart: 22-96-3672VpazeqjfcqpKUFAEBGZXZEZsbshveom ClinicStart: 95-35-1658VPSZWXTLGP CANCER SCREENINGCOLORECTAL CANCER SCREENINGMemorial Health Systemtart: 67-16-1399UA COLONOGRAPHYCT COLONOGRAPHYMemorial Health Systemtart: 03-31-8716OUQNQ OCCULT BLOOD FECAL OCCULT BLOODMemorial Health Systemtart: 82-13-1022Xzolnazpt for malignant neoplasm of colonMemorial Health Systemtart: 36-36-0471QKZRHATZTCNJWOLEHMNRGPJOID [facility]: 84-64-2348Axiim 1996 panel - Serum or PlasmaLipid ScreeningMemorial Health Systemtart: 93-64-5640Fonpq panelLipid ScreeningMemorial Health Systemtart: 81-64-1578PIXJN SCREENLIPID SCREENAdams County Hospitalrt: 1974 SHINGRIX VACCINE (1 of 2)SHINGRIX VACCINE (1 of 2)[facility] Systemtart: 18-12-0923Myykt microalbumin profileDTAP,TDAP,TD (1 - Tdap)[facility] Start: 65-73-6812Cerkpzz ScreeningAnxiety ScreeningMemorial Health Systemtart: 71-46-8390Qyfnofvjhp ScreeningDepression ScreeningMemorial Health Systemtart: 38-93-0306LBRTVIBCD C SCREENINGHEPATITIS C SCREENINGMemorial Health Systemtart: 64-06-8255Axuyyroic C screeningHepatitis C ScreeningMemorial Health Systemtart: 65-61-7789Ylubl depression screening assessmentDEPRESSION SCREENINGMemorial Health Systemtart: 38-23-7043QQDFJOBJXMMV: 65+ (1 - PCV)PNEUMOCOCCAL: 65+ (1 - PCV) [facility] Systemtart: 14-91-3050Iaceszauo for malignant neoplasm of colonMoberly Regional Medical CenterDXA Skeletal system Views for bone densityDEXA bone density Imaging Routine Osteopenia of multiple sites Ordered: 02/13/2024N[facility] HealthcareComment on above:Ordered: 02/13/2024 End: 59-72-8924LIU 3D POST PROCESSINGMRI 3D POST PROCESSING Radiology Routine Prostate cancer (HCC) 1 Occurrences starting 05/22/2023 until 06/20/2024 [facility] Work Phone: Comment on above:1 Occurrences starting 05/22/2023 until 06/20/2024 End: 43-24-2220Yoqusbkn specific Ag [Mass/volume] in Serum or PlasmaPROSTATE- SPECIFIC ANTIGEN DIAGNOSTIC Lab Routine Prostate cancer (HCC) Every 6 months for 3 Occurrences starting 11/22/2023 until 11/21/2024[facility] Work Phone: Comment on above:Every 6 months for 3 Occurrences starting 11/22/2023 until 11/21/2024XR Chest 2 ViewsXR chest 2 views Imaging Routine Acute cough Bronchitis Decreased breath sounds at right lung base 0 07/01/2024 10:27 AM [facility] [employer] Work Phone: End: 24-49-5633VU Foot - right AP and Lateral and obliqueXR FOOT GENERAL 3V AP/LAT/OBL RIGHT Radiology Routine Pain in right foot 1 Occurrences starting 01/19/2025 until 02/18/2026[facility] Work Phone: Comment on above:1 Occurrences starting 01/19/2025 until 02/18/2026XR Foot - right AP and Lateral and obliqueXR FOOT GENERAL 3V AP/LAT/OBL RIGHT Radiology Routine Pain in right foot 01/20/2025 2:09 PM EDT [facility] Work Phone: XR Lumbar spine [facility]Met[facility] Immunizations Immunization DateImmunizationNotesCare GoisrgxiKijierhi23-09-1870Pzyabzmr trivalent influenza vaccine, adjuvanted, preservative freeJr. Stepanic DO Work Phone: GiggzoLafayette Regional Health CenterAhpvosfhwt02-57-2334pxnzwyovi virus vaccine, unspecified formulationJr. Stepanic DO Work Phone: GiggzoLafayette Regional Health CenterCxjiqzouoe33-84-8082VTK, recombinant, protein subunit RSVpreF, adjuvant reconstitu, 120mcg/0.5mL, PF (Arexvy)Annette Block MD Work Phone: GiggzoLafayette Regional Health CenterLvmconoohs29-52-1266Shzyijhkv, Seasonal, Quadrivalent, AdjuvantedAnnette Block MD Work Phone: noLafayette Regional Health CenterCiinhemyla32-58-3807TFOK-WDD-0 (COVID-19) vaccine, mRNA, spike protein, LNP, PF, [place]-sucrose, 30 mcg/0.3 Nicole Block MD Work Phone: [facility] CenterEhpcablmse98-56-9828qzssvikcz virus vaccine, unspecified formulationGeneric ProviderMoberly Regional Medical CenterAfovolqrxp10-84-7311Yhlzpzshh, Seasonal, Quadrivalent, AdjuvantAllan Block MD Work Phone: [facility] CenterOovkxdlzec30-97-2127yzychs vaccine recombinant Annette Block MD Work Phone: [facility] CenterGyfhgohtia97-56-6638Ymuixqtux, Seasonal, Quadrivalent, AdjuvantAllan Block MD Work Phone: [facility] CenterBuiwvpiyfo57-57-6747qdckzw vaccine recombinant Annette Block MD Work Phone: [facility] CenterIzdymkktes07-24-4737HBCA-JjL-6, UnspecifiedAnnette Block MD Work Phone: [facility] CenterIocylmpjpb49-35-3420ncpknpoclruh polysaccharide vaccine, 23 valSherly Block MD Work Phone: [facility] CenterIrjvhpvner89-74-9144Fykhqqx SARS-CoV-2 VaccinationGeneric ProviderMoberly Regional Medical CenterBaqrzpncbe72-69-8160UKLI-KoK-6, UnspecifiedJr. Stepanic DO Work Phone: [facility] CenterAiorbxtnok11-00-7903Tjuhoep SARS-CoV-2 VaccinationGeneric ProviderMoberly Regional Medical CenterMvndjhurxs28-02-0924COAS-HdG-8, UnspecifiedJr. Stepanic DO Work Phone: [facility] CenterYtacjkocjs15-68-6139nabrwrzxk, injectable, quadrivalent, preservative Francisco Block MD Work Phone: [facility] CenterAtesqrxquz39-74-9209szbzmmlzz, injectable, quadrivalent, preservative Francisco Block MD Work Phone: [facility] CenterJuacwokrqd04-79-4685snxxllhvd, seasonal, injectable, preservative freeJr. Stepanic DO Work Phone: [facility] CenterJxlrdlfzws09-34-1747thbaihxft, injectable, quadrivalent, preservative Francisco Block MD Work Phone: [facility] CenterMxixaitvgz82-85-5400xhollju toxoid, reduced diphtheria toxoid, and acellular pertussis vaccine, Sabrina Block MD Work Phone: [facility] CenterZbguftfsbv89-32-7758vwesyo vaccine, Margi Block MD Work Phone: [facility] CenterUhdsfugpfc26-86-1293dgacsrzpj, seasonal, injectable, preservative freeJr. Stepanic DO Work Phone: [facility] Healthcare Payers DatePayer CategoryPayerPolicy [id number] [id number] Health Insurance [id number] [id number] [id number] Cross Blue ShieldBCBS [id number] [id number] O SUPERMED PLUS [id number] 2019-Present [phone] [address] [place] [address] O [id number] 1.2.840.395988.1.13.159.2.7.3.403111.71789-51-8539Sjzj-kkt86-10-0140Defymae [id number] 2.16.840.1.219986.3.579.2. Tkidgci1340286 2.840.1.747241.3.579.2.39755-80-9820Rvkquhi7371355 2.840.1.000662.3.579.2.32981-28-8644Cikioxk3742114 2..840.1.974155.3.579.2.86901-13-0228Roecjfc2893207 2..840.1.513258.3.579.2.49709-92-1555Dvxdohh3905750 2.840.1.443660.3.579.[id number] 2.16.840.1.178582.3.579.2.17604-53-7980Bfidnsm2580826 2.16840.1.796940.3.579.2.26644-27-2863Ghocftn3881835 2.16.840.1.220141.3.579.2.48182-70-0040Ovmjabe8477397 2.16840.1.294562.3.579.[id number] 2.16.840.1.815338.3.579.2.663897-51-4220Eklgqgn78804327 2.0.1.374001.3.579.2.[id number] 2.840.1.757642.3.579.2.117037-16-1374Jklddze24309110 2.0.1.260919.3.579.2.20[id number] 2..1.530509.3.579.2.491300-16-9567Bfgripa73297236 2..1.572621.3.579.2.807933-26-9662Nmlniwm22942358 2..1.537312.3.579.2.004570-39-7952Pzfmabg4683630 2.0.1.382193.3.579.2.204106-86-6764Xaoqsgz3918259 2..1.293083.3.579.2.087206-20-1050Givpcxt1412444 2..1.437619.3.579.2.021732-25-9459Bthsbzr5813032 2..1.294795.3.579.2.498315-13-0673Kkkpbbh9167768 2..1.826301.3.579.2.639568-12-4731Tlmetgw4400063 2.0.1.354803.3.579.2.641618-24-3709Xmtxmee2267756 2.840.1.468318.3.579.2.204623-93-4483Xzgwvie1012334 2.16.840.1.313193.3.579.2.999471-44-3898Uiutwfo4748232 2..840.1.701899.3.579.2.499264-11-2012Yzfqgxt5631443 2..840.1.544487.3.579.2.3161Lhvkcno77812817 2..840.1.140210.3.579.2.462 Caglvmb21368159 2..840.1.542246.3.579.2.531 Social History DateTypeDetailFacilityTobacco smoking status NHISTobacco smoking consumption unknownMartins Ferry Hospital Work Phone: Start: 14-34-9389Pgj Assigned At BirthMaleCBarberton Citizens Hospitaltart: 10-17-2021 End: 50-94-1423Qsphgouv to SARS-CoV-2 (event)Not sureMemorial Health Systemtart: 10-26-2022 End: 58-92-4617Fnw [facility] HealthcareStart: 04-07-2020 End: 20-82-5706Dnoixll smoking status NHISNever smoked tobacco (finding) [facility] 10-26-2022 End: 04-67-1700Oolrjbz of Social functionNOMS HealthcareStart: 05-25-2012 End: 28-78-9779Egvscost Score (1-100), lower number is lower scgb63IgibwrwlcMemorial Health Systemtart: 96-87-3510Dzaapi identityIdentifies as male gender (finding) [facility] Systemtart: 78-52-4349Pkoaltl use and exposureSmokeless tobacco non-userNOMS HealthcareStart: 07-25-2023 End: 78-19-8821Xypkxyr intakeCurrent drinker of alcohol (finding)[facility] Start: 62-51-2631Gjwmqlk CommentCaffeine: 2 cups dailyNOMS HealthcareStart: 50-07-5552Twi Assigned At BirthNot on fileFILLMORE COMMUNITY [facility] HealthcareSexMale (finding) [facility] Medical Equipment Procedure CodeEquipment CodeEquipment Original TextEquipment IdentifierDates Arthroplasty, knee, total, minimally invasiveART SURF RT 10MM 10-12 GHFDAStart: 52-65-7397Itqairkzwosi, knee, total, minimally invasiveOrthopaedic cement, non-medicated()[id number] FDAStart: 04-07-2020 Arthroplasty, knee, total, minimally invasiveUncoated knee femur prosthesis ()[id number] FDAStart: 40-93-6989Rjlbeviuofua, knee, total, minimally invasiveUncoated knee tibia prosthesis, metallic ()[id number] FDAStart: 78-68-3055Synanoyjutpw, knee, total, minimally invasivePolyethylene patella prosthesis ()[id number] FDAStart: 28-33-2349Gkyvljepjese, knee, total, minimally invasiveART SURF RT 10MM 10-12 GHFDAStart: 04-07-2020 Arthroplasty, knee, total, minimally invasiveART SURF RT 10MM 10-12 GHFDAStart: 92-81-4538Orscilouhhsx, knee, total, minimally invasiveART SURF RT 10MM 10-12 GH FDAStart: 12-84-4873Rxhavjkbchdv, knee, total, minimally invasiveART SURF RT 10MM 10-12 GHFDAStart: 87-21-0996OCRRMJELA 11MM PLIF LORDOTICFDAStart: 05-41-5060LKCZM 6.5 X 55MM CAPLOX IIFDAStart: 88-82-4085HRJEK 6.5 X 55MM CAPLOX IIFDAStart: 56-76-6201PORJO 6.5 X 55MM CAPLOX IIFDAStart: 61-53-9843WPNBE SET CAPLOX IIFDAStart: 88-28-2472CIVSK SET CAPLOX IIFDAStart: 75-67-8538CMPVG SET CAPLOX IIFDAStart: 55-69-9660ZEIWK SET CAPLOX IIFDAStart: 52-28-2685JDAEU SET CAPLOX IIFDAStart: 62-38-0951CZTHH SET CAPLOX IIFDAStart: 97-65-1815JMSYMXJLR 11MM PLIF LORDOTICFDAStart: 52-46-5372OJDIDBQXS 13MM 4DEGREES TLIFFDAStart: 41-80-7785MZOVZQIR GRANULES 10CCFDAStart: 29-66-6894JPY 45MM CVD CAPLOX IIFDA Start: 27-30-9023GST 55MM CVD CAPLOX IIFDAStart: 32-11-0337OZANS 6.5 X 50MM CAPLOX IIFDAStart: 31-34-1678EIQRA 6.5 X 55MM CAPLOX IIFDAStart: 76-49-1753INANI 6.5 X 55MM CAPLOX IIFDAStart: 16-35-4211NZPIQLVSW 11MM PLIF LORDOTICFDAStart: 87-71-8469FKKCM 6.5 X 55MM CAPLOX IIFDAStart: 76-35-3836KQYKT 6.5 X 55MM CAPLOX IIFDAStart: 50-91-5997KMFJM 6.5 X 55MM CAPLOX IIFDAStart: 45-63-9151JTCWZ SET CAPLOX IIFDAStart: 68-53-6360KOFGA SET CAPLOX IIFDAStart: 33-66-3796FXMDC SET CAPLOX IIFDAStart: 89-53-0867HYGJB SET CAPLOX IIFDAStart: 40-26-5021WLRWJ SET CAPLOX IIFDAStart: 29-21-4010GUIIE SET CAPLOX IIFDAStart: 17-57-2655YFDLAIBLV 11MM PLIF LORDOTICFDAStart: 21-91-2194CVGQBWADP 13MM 4DEGREES TLIFFDAStart: 51-90-2937CKSVKAVG GRANULES 10CCFDAStart: 22-87-0139WGK 45MM CVD CAPLOX IIFDA Start: 70-80-6862VWK 55MM CVD CAPLOX IIFDAStart: 64-85-5009UJPBH 6.5 X 50MM CAPLOX IIFDAStart: 23-42-8132XDKIJ 6.5 X 55MM CAPLOX IIFDAStart: 55-98-6577BVCNS 6.5 X 55MM CAPLOX IIFDAStart: 13-22-6824LFUPKWEIG 11MM PLIF LORDOTICFDAStart: 76-42-4964GUBTS 6.5 X 55MM CAPLOX IIFDAStart: 66-97-9348KAUEN 6.5 X 55MM CAPLOX IIFDAStart: 81-30-8476SSYVN 6.5 X 55MM CAPLOX IIFDAStart: 79-28-7777CUWXM SET CAPLOX IIFDAStart: 98-80-3459MUHJL SET CAPLOX IIFDAStart: 34-48-7775TQSXN SET CAPLOX IIFDAStart: 69-65-2976SLPFV SET CAPLOX IIFDAStart: 73-53-6503GOTXZ SET CAPLOX IIFDAStart: 44-15-8578MBBDZ SET CAPLOX IIFDAStart: 80-31-1508KLPNTHOAG 11MM PLIF LORDOTICFDAStart: 26-74-4611ENFQEDEHP 13MM 4DEGREES TLIFFDAStart: 12-86-1554QDIDKDHB GRANULES 10CCFDAStart: 42-78-2692EFF 45MM CVD CAPLOX IIFDA Start: 05-78-7889VIX 55MM CVD CAPLOX IIFDAStart: 28-35-1918WBKYI 6.5 X 50MM CAPLOX IIFDAStart: 16-90-2944ATBSB 6.5 X 55MM CAPLOX IIFDAStart: 22-73-5317MMDKB 6.5 X 55MM CAPLOX IIFDAStart: 94-19-6329STAOMQBYR 11MM PLIF LORDOTICFDAStart: 88-75-7345XNAIK 6.5 X 55MM CAPLOX IIFDAStart: 21-65-9552STDBY 6.5 X 55MM CAPLOX IIFDAStart: 85-63-3254RUCKS 6.5 X 55MM CAPLOX IIFDAStart: 50-93-0488FCVOC SET CAPLOX IIFDAStart: 42-08-2447ASQCQ SET CAPLOX IIFDAStart: 47-62-7951LXVQN SET CAPLOX IIFDAStart: 16-68-5666WMERZ SET CAPLOX IIFDAStart: 11-36-9838TEFXV SET CAPLOX IIFDAStart: 95-60-5211RWAYE SET CAPLOX IIFDAStart: 74-11-8254KOVNIJLFO 11MM PLIF LORDOTICFDAStart: 05-33-7238AAFZUVCGC 13MM 4DEGREES TLIFFDAStart: 78-66-6934TERLYLRK GRANULES 10CCFDAStart: 36-09-5805ZMX 45MM CVD CAPLOX IIFDA Start: 36-14-4131ZMU 55MM CVD CAPLOX IIFDAStart: 86-52-6902ZLTOY 6.5 X 50MM CAPLOX IIFDAStart: 61-60-1125WCGYG 6.5 X 55MM CAPLOX IIFDAStart: 60-17-3267NNXYB 6.5 X 55MM CAPLOX IIFDAStart: 63-09-0193DNIFLPMJW 11MM PLIF LORDOTICFDAStart: 94-25-4276QQOXQ 6.5 X 55MM CAPLOX IIFDAStart: 76-41-5349PHBNE 6.5 X 55MM CAPLOX IIFDAStart: 07-90-7871VFFUX 6.5 X 55MM CAPLOX IIFDAStart: 81-73-2645WPAPC SET CAPLOX IIFDAStart: 14-86-3104QITXD SET CAPLOX IIFDAStart: 85-21-7724OQWRC SET CAPLOX IIFDAStart: 31-04-5761TGPUF SET CAPLOX IIFDAStart: 96-37-5636HAKDE SET CAPLOX IIFDAStart: 02-43-8353YIFPV SET CAPLOX IIFDAStart: 05-33-4950UMXWUBVCS 11MM PLIF LORDOTICFDAStart: 99-40-4712SIYLOHZPP 13MM 4DEGREES TLIFFDAStart: 82-16-0340QQSGSUVU GRANULES 10CCFDAStart: 39-46-7347LUV 45MM CVD CAPLOX IIFDA Start: 03-59-0408FNE 55MM CVD CAPLOX IIFDAStart: 35-02-4697EBITB 6.5 X 50MM CAPLOX IIFDAStart: 05-97-4768GTMVJ 6.5 X 55MM CAPLOX IIFDAStart: 05-47-7495NFPKG 6.5 X 55MM CAPLOX IIFDAStart: 04-02-2018 Functional Status PdulPcvwemywwfMnemryVipycxvn28-53-3664Fwepzcr Health Questionnaire 2 item (PHQ- 2) [Reported][facility] CenterSxnhmajuys97-41-5978Pknzsjg Health Questionnaire 2 item (PHQ- 2) [Reported][facility] Clinical Notes 10-27-2021 to 03-31-2025 Note Date & IxofYftjXqlxwjom16-74-5446 NoteHNO ID: [id number] Author: DARRYL SINCLAIR MD Service: ? Author Type: Fellow Type: Progress Notes Filed: 04/01/2025 15:19 Note Text: VIRTUAL VISIT PROGRESS NOTE I have communicated my name and active licensure. The patient's identity and physical location were verified at the time of this visit. Either the patient or their legal footwear sales representative has been informed of the risks and benefits of -- and alternatives to -- treatment through a remote evaluation and consents to proceed with the evaluation remotely. This is a virtual visit using [employer] Video Visit. REASON FOR VISIT: follow-up HPI: 69 year old male presents for follow up for prostate cancer G 3+3 on active surveillance Prostate Biopsies: 04/12/22 - No malignancy. 3 cores of CHIRAG. 08/25/2020:Nina 3+3, 2/ cores 05/28/2019: Nina 3+3=6, 1/ cores Denies bothersome LUTS LABS: PSA 02/06/2025-1.39 11/15/23 - 1.22 10/29/2022 - 1.19 10/03/2022 - 1.15 03/2022 - 1.19 08/2021: 0.8 02/23/2021: 1.17 08/18/2020: 1.03 02/20/2020: 1.97 IMAGING MRI Prostate 11/22/23 IMPRESSION: 1.0 cm left anterior transition PI-RADS 3 lesion, similar to 10/27/2021. No new lesion suspicious for clinically significant prostate cancer. No lymphadenopathy or suspicious osseous lesions. MRI 10/2021 - left mid anterior TZ PIRADS3 lesion. 29cc gland MRI 02/2020 - negative Prostate biopsy 04/12/2022 PATHOLOGY: FINAL DIAGNOSIS A. Prostate, left mid [...] right posterior, biopsy: - Benign prostate tissue. ALLERGIES: ALLERGIES No Known Allergies MEDICATIONS: Current Outpatient Medications Medication Sig atorvastatin (LIPITOR) 80 mg tablet Take 80 mg by mouth daily at bedtime. metoprolol succinate 25 mg CSpX OZEMPIC 0.25 mg or 0.5 mg (2 mg/3 mL) pen Inject 0.25 mg subcutaneously one time a week. zolpidem (AMBIEN) 5 mg tablet Take 1 [...] Date BACK SURGERY HX KNEE SURGERY HX SOCIAL HISTORY[1] No family history on file. REVIEW OF SYSTEMS General: No weight loss, malaise or fevers, No weight loss, malaise or fevers., SEE HPI Genitourinary: See HPI The remainder of the ROS was reviewed and negative. PHYSICAL EXAMINATION Not done due to VV. IMPRESSION: This is a 69 year old male on for G3+3, most recent PSA 1.39 (1.22) PLAN: VV in 6 months with PSA prior Please call with questions or concerns Darryl Sinclair MD [1][facility]09-09-2025 Telephone encounter Note* Telephone Encounter - Shannon Couch MA - 03/02/2025 11:12 AM EDT Placed follow up call to patient No answer left voice mail Let them know that they can order one off amaz[employer] if they would like If they can no find one on amazon they can come back to the [employer] office to pick another on up [facility]09-09-2025 Miscellaneous Notes* Telephone Encounter - Shannon Couch MA - 03/02/2025 11:12 AM EDT Placed follow up call to patient No answer left voice mail Let them know that they can order one off [employer] if they would like If they can no find one on amazon they can come back to the [employer] office to pick another on up * Telephone Encounter - Pao Gregg - 03/02/2025 8:31 AM EDT Marco Antonio is calling Bob Jim MD today with concern regarding Patient Question. Spouse is asking ifpatient can get an additional heel wedge. He is walking lopsided and would like to get another one.If not able to get one he would like the ordering information so that he can order another one. Please call patients spouse back with the information. Patient has been identified by name and birthdate. Person calling: spouse: Call patient at: on cell [phone] (home) [phone] (cell) Was an appointment scheduled: No Closing statement: Results or non-symptom based questions: Thank you for calling [facility], your call will be returned within the next business day. Pao Gregg documented in this encounterMartins Ferry Hospital09-09-2025 Telephone encounter Note * Telephone Encounter - Pao Gregg - 03/02/2025 8:31 AM EDT Marco Antonio is calling Bob Jim MD today with concern regarding Patient Question. Spouse is asking ifpatient can get an additional heel wedge. He is walking lopsided and would like to get another one.If not able to get one he would like the ordering information so that he can order another one. Please call patients spouse back with the information. Patient has been identified by name and birthdate. Person calling: spouse: Call patient at: on cell [phone] (home) [phone] (cell) Was an appointment scheduled: No Closing statement: Results or non-symptom based questions: Thank you for calling [facility], your call will be returned within the next business day. Pao Gregg [facility]09-08-2025 NoteHNO ID: [id number] Author: BOB JIM MD Service: ? Author Type: Physician Type: Progress Notes Filed: 03/01/2025 08:17 Note Text: [facility] - Follow-Up Visit Note CHIEF COMPLAINT: Right midfoot arthritis Right base of fifth prominence INTERVAL HISTORY: Marco Antonio Benitez is a 69 year old male who returns today for his right lateral foot pain. He has been to a physical therapy appointment. He wears his lace up ASO ankle brace all day. He has switched to soft soled shoes-[employer]. Takes qebs-icd-fyypsjw pain medication as needed. He walks up to 10,000 steps on concrete while working and is barefoot at home. Does have pain when he takes his shoes off describes it as sharp, shooting, rates a 10 out of 10. PHYSICAL EXAM: Well appearing male in no acute distress; Alert and oriented. Right Lower Extremity: Inspection: Incisions CDI from remote surgery, forefoot adductus alignment Palpation: TTP over midfoot, especially over prominent base of 5th MT. Tender to percussion there ROM: Maintained Neuro: sensation intact in the superficial peroneal, deep peroneal, tibial, sural, and saphenous nerve distributions Vascular: DP pulse present, 2+ Pain with heel raise, arch maintained bilaterally Compartments: compartments of leg are soft and compressible IMAGING: No new imaging ASSESSMENT: Right midfoot arthritis Right base of fifth prominence PLAN: - Continue with activity modification and soft soled shoes - Recommended soft soled house shoes to help with pain while walking around at home - Provided heel wedge to continue to offload the area Follow up: As needed Imaging at next visit: None needed Thank you for the opportunity to participate in this patient's care. Bob Jim MD [facility] MakingGe[facility]09-08-2025 History of Present illness Narrative* Bob Jim MD - 03/01/2025 7:43 AM EDT [facility] - Follow-Up Visit Note CHIEF COMPLAINT: Right midfoot arthritis Right base of fifth prominence INTERVAL HISTORY: Marco Antonio Benitez is a 69 year old male who returns today for his right lateral foot pain. He has beento a physical therapy appointment. He wears his lace up ASO ankle brace all day. He has switched tosoft soled shoes-[employer]'s. Takes tzcy-aor-teufvqt pain medication as needed. He walks up to 10,000 steps on concrete while working and is barefoot at home. Does have pain when he takes his shoes off describes it as sharp, shooting, rates a 10 out of 10. PHYSICAL EXAM: Well appearing male in no acute distress; Alert and oriented. Right Lower Extremity: Inspection: Incisions CDI from remote surgery, forefoot adductus alignment Palpation: TTP over midfoot, especially over prominent base of 5th MT. Tender to percussion there ROM: Maintained Neuro: sensation intact in the superficial peroneal, deep peroneal, tibial, sural, and saphenous nerve distributions Vascular: DP pulse present, 2+ Pain with heel raise, arch maintained bilaterally Compartments: compartments of leg are soft and compressible IMAGING: No new imaging ASSESSMENT: Right midfoot arthritis Right base of fifth prominence PLAN: - Continue with activity modification and soft soled shoes - Recommended soft soled house shoes to help with pain while walking around at home - Provided heel wedge to continue to offload the area Follow up: As needed Imaging at next visit: None needed Thank you for the opportunity to participate in this patient's care. Bob Jim MD Medical Decision Making documented in this encounterMart[facility]erry Hospital09-04-2025 History of Present illness Narrative* Mary Coffey, ADAMS - 02/25/2025 4:30 PM EDT Physical Therapy Physical Therapy Treatment Visit Patient Name: Marco Antonio Benitez Today's Date: 02/25/2025 Reason: R Peroneal Tendonitis Visit number: 6 Supervised time: 46' Total time: 46' Precautions: R Peroneal Tendonitis Subjective: Pain: 2-3/10 Overall progress: Minimal change since SOC. Still has periodic sharp shooting pain on the outside of his foot but states that this does not happen as often as it used to. Treatment: Manual: x21' STM to base of 5th metatarsal and along distal peroneal tendons, ankle PROM all directions as tolerated, talocrural and subtalar mobs Therapeutic Exercise: x25' supervised per exercise grid including foot intrinsics, ankle flexibility and strengthening Modalities: declined Objective: ANKLE AROM: PF- 36 degrees DF- 10 degrees Inversion- 24 degrees eversion- 4 degrees PROM: PF- 40 degrees DF- 12 degrees inversion- 30 degrees eversion- 10 degrees Joint play: Mod restrictions noted with talocrural and subtalar joints Palpation: Min tenderness and redness at base of 5th metatarsal Special Test: Single leg HR- able to complete 20 repetitions with 0/10 pain Functional: Min decreased stance time on R LE during stance phase Assessment: Outcome Measure: LEFS- 58.8% Goal 1: Patient will be <20% impaired according to LEFS to demonstrate improved function in 4-6 weeks. Progressing Towards Goal Goal 2: Patient will report 0/10 tenderness along distal peroneal tendons to demonstrate decreased inflammation in 4-6 weeks. Progressing Towards Goal (Min tenderness along distal tendons and tendon insertion) Goal 3: Patient will be able to complete 20 repetitions of single leg heel raise to demonstrate increased strength in 4-6 weeks. Goal Met Goal 4: Patient will be able to walk with and without shoes around home with 0/10 pain in 4-6 weeks. Progressing Towards Goal Pt demonstrates improvement in ankle mobility, strength and proprioception demonstrated by improvedability to complete SL static and dynamic balance progressions and increased ankle ROM. Despite this, pt is continues to report intermittent quick instances of sharp shooting pain although this happens less in frequency. Plan [facility]. I hereby deem this POC medically necessary. Please sign below. ___ Date: documented in this encounterMoberly [facility] Medical CenterTlabgpbznv64-62-1775 History of Present illness Narrative* Yudy Gupta NP - 02/23/2025 9:15 AM EDT Images from the original note were not included. Marco Antonio Benitez is a 69 y.o. male presents with chief complaint of 6 month follow up of chronic conditions (Review lab drawn 02/20/2025. He would like to discuss DEXA 02/2024. ) and Medicare Annual Wellness Visit Subsequent HPI: History of Present Illness The patient presents for a routine checkup. He is currently on a daily regimen of vitamin D 2000 IU. He maintains an active lifestyle, walking between 10,000 to 15,000 steps daily. He is also taking semaglutide for blood sugar control, which he reports as effective. He is under the care of an Urologist in [place], who has been monitoring his PSA levels. He has ascheduled appointment with this specialist in the coming week. Bone Health Concerns His has expressed concern about his bone health, prompting him to undergo a bone density test in 02/2024. The test indicated borderline osteoporosis, and he is not currently taking any medication for his bones. He has previously undergone back surgery but has not had any hip surgeries. - Onset: Concerns prompted by his . - Timing: Bone density test in 02/2024. - Character: Borderline osteoporosis. - Severity: Not currently taking any medication for his bones. He reports no chest pain or breathing difficulties. His bowel movements are regular. He receives his vaccinations either at this clinic or at [facility]. He regularly visits his eye doctor and dentist, withhis most recent dental visit being this morning. 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 CURRENT PCP/CARE TEAM: Patient Care Team: Annette Block MD as PCP - General (Internal Medicine) Yudy Gupta NP as PCP - ACO Reach Dr. Salome Real (Urology) Jevon Last MD as Referring Physician (Urology) Berry Fisher (Cardiology) Ron Hartley OD as Referring Physician (Optometry) Over the past 2 weeks, how often have you been bothered by any of the following problems? Little interest or pleasure in doing things: Not at all Feeling down, depressed, or hopeless: Not at all Patient Health Questionnaire-2 Score: 0 Araiza Fall Risk History of Falling, Immediate or Within 3 Months: No Health Risk Assessment Form Do you need help eating, bathing, using the toilet, dressing, or getting around your home?: No Can you prepare your own meals?: Yes Can you do your own housework without help?: Yes Can you shop for groceries or clothes without help?: Yes Do you exercise for about 20 minutes 3 or more days a week?: No How confident are you that you can control and manage most of your health problems?: Very confident Can you mange your money, credit cards and accounts, pay bills and taxes?: Yes Cognitive Screening Three Word Registration: Apple, Watch, Jane Clock Drawing: Normal Clock - 2 Three Word Recall: All 3 words correct - 3 Total Score (0-5 Points): 5 Pain Assessment Pain Score: 3 HISTORIES: PAST MEDICAL HISTORY: Past Medical History: Diagnosis Date Allergic rhinitis Anxiety Chronic idiopathic urticaria 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 11/19/2022 Factor V Leiden mutation (HHS-HCC) GERD (gastroesophageal reflux disease) History of DVT in adulthood Hypercholesteremia Insomnia Osteopenia of multiple sites 11/19/2022 Post-traumatic osteoarthritis of right foot Prediabetes Primary osteoarthritis involving multiple joints Prostate cancer (HCC) Vitamin D deficiency 11/19/2022 SURGICAL HISTORY: Past Surgical History: Procedure Laterality Date COLONOSCOPY 2009 EGD 04/15/2017 /colonoscopy- normal (internal hemorrhoids) FRACTURE SURGERY JOINT REPLACEMENT LISFRANC ARTHRODESIS 2016 LUMBAR SPINE SURGERY 2017 posterior lumbar interbody fusion SPINE SURGERY TOE SURGERY hammertoe repair TOTAL KNEE ARTHROPLASTY Right VASECTOMY 1998 SOCIAL HISTORY: Social History Tobacco Use Smoking status: Never Smokeless tobacco: Never Vaping Use Vaping status: Never Used Substance Use Topics Alcohol use: Yes Alcohol/week: 1.0 standard drink of alcohol Types: 1 Glasses of wine per week Comment: Caffeine: 2 cups daily Drug use: Never Depression: Not at risk (02/23/2025) PHQ-2 PHQ-2 Score: 0 FAMILY HISTORY: Family [...] Nightly cetirizine (ZYRTEC ALLERGY) 10 mg, Daily diclofenac (Voltaren) 75 MG EC tablet TAKE 1 TABLET BY MOUTH WITH FOOD OR MILK TWICE DAILY docusate sodium (Colace) 100 MG capsule 1 capsule, 2 times daily metoprolol succinate XL (TOPROL XL) 25 mg, Daily omeprazole (PRILOSEC) 20 mg, Oral, Daily Ozempic (1 MG/DOSE) 1 mg, Subcutaneous, Weekly polyethylene glycol (PEG) 3350 (MIRALAX) 17 g, Daily PRN sildenafil (Viagra) 100 MG tablet TAKE 1 TABLET BY MOUTH EVERY DAY NEEDED FOR ERECTILE DYSFUNCTION FOR UP TO 30 DOSES. Vitamin D 100 mcg, Oral, Daily zolpidem (AMBIEN) 5 mg, Nightly PRN ALLERGIES: No Known Allergies PHYSICAL EXAM: Visit Vitals BP 122/72 (BP Location: Left arm, Patient Position: Sitting) Pulse 67 Ht 5' 8 Wt 220 lb SpO2 97% BMI 33.45 kg/m Smoking Status Never BSA 2.19 m BP Readings from Last 3 Encounters: 02/23/25 122/72 11/20/24 120/82 08/18/24 122/70 Wt Readings from Last 3 Encounters: 02/23/25 220 lb 11/20/24 215 lb 07/01/24 227 lb Physical Exam HENT: Right Ear: Tympanic membrane and external ear normal. Left Ear: Tympanic membrane and external ear normal. Mouth/Throat: Mouth: Mucous membranes are moist. Neck: [...] oriented to person, place, and time. Psychiatric: Thought Content: Thought content normal. Results Labs - Vitamin D level: 29 ng/mL - Total cholesterol: 152 mg/dL - Triglycerides: 91 mg/dL - HDL: 51 mg/dL - LDL: 82.8 mg/dL - Sodium: Normal - Potassium: Normal - Calcium: Normal - Kidney function: Normal - Liver function: Normal - Blood glucose: 109 mg/dL - Hemoglobin A1c: 08/2024, 5.9% - PSA: 08/2024, Normal Imaging - Bone density test of the forearm: 02/2024, Borderline osteoporosis - Bone density test of the femoral neck bones: 02/2024, Osteopenia ASSESSMENT AND PLAN: Assessment & Plan 1. Pure hypercholesterolemia (Primary) Levels look good. Continue Atorvastatin as directed. Encouraged to eat a healthy diet and exercise regularly. 2. Prediabetes Prediabetes: Stable. - Blood glucose level is 109. Hemoglobin A1c was 5.9 six months ago. - Order for blood work in 6 months at [place], including hemoglobin A1c test. - Continue semaglutide for blood sugar control. - Basic metabolic panel; Future - Hemoglobin a1c with eag; Future - Basic metabolic panel - Hemoglobin a1c with eag 3. 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 Denies chest pain or pressure. Continue to monitor. 4. Generalized anxiety disorder Doing well. Continue current regimen. 5. Primary insomnia Doing well. Continue current regimen. 6. Vitamin D deficiency Vitamin D deficiency: Acute. - Vitamin D level is currently at 29, below the desired range of 30-100. Previous reading was 36. - Increase dosage of vitamin D from 2000 IU to 4000 IU daily. - Cholecalciferol (Vitamin D) 50 MCG (2000 UT) capsule; Take 2 capsules (100 mcg) by mouth Daily 7. Osteopenia of multiple sites Borderline osteoporosis: Chronic. - Bone density test in February 2024 revealed osteopenia in femoral neck bones and osteoporosis inforearm. - Engage in weight-based exercises and continue vitamin D and calcium supplementation. - Fosamax suggested as a potential treatment option, to be taken once weekly if started but at the time of results he choose to monitor. - Reassessment of bone density in 1 years 2025. 8. Medicare annual wellness visit, subsequent Patient here for annual Medicare Wellness visit with Suzi Gupta NP. Demographics were updated. Self-assessment was completed. Past medical, family, and social history were updated. The medication list, including supplements being taken, was updated. A list of other current medical providers was es tablished/updated. Time was spent discussing health maintenance issues, ordering proper testing, and a schedule was provided regarding recommended screening. We discussed safety issues and fall risk.Depression screening was completed and addressed. Fall screening was completed and addressed. Cognitive function was assessed by direct observation and assessment of ability to perform ADL's and IADL's was done. The current BMI was provided and will continue to be monitored at routine office visitsas well. Major risk factors for chronic disease including family history were discussed and a list was provided with the care plan. 9. ACP (advance care planning) We also discussed Advanced Directives and code status. Pt has LW/POA. Pt wishes to be a FULL code. Health maintenance. - Total cholesterol is 152, triglycerides are 91, HDL is 51, and LDL is 82.8, all within acceptableranges. Sodium, potassium, and calcium levels are normal. Kidney and liver functions are good. Not anemic and no evidence of blood loss. - PSA level is normal. - Colonoscopy in March 2017 showed hemorrhoids, repeat due in 10 years. - Regular visits to eye doctor and dentist. - Last pneumococcal vaccine in 2020, up to date with pneumonia vaccines. Follow-up - Blood work in 6 months at [place], including hemoglobin A1c test. Dr. Block was present in the office at the time of visit today and is supervising patient care. I amfollowing Dr. Block's established plan of care for the above issues. documented in this encounterMoberly Regional Medical [id number] History of Present illness Narrative* Mary Coffey, PT - 02/17/2025 5:00 PM EDT Images from the original note were not included. Physical Therapy Physical Therapy Treatment Visit Patient Name: Marco Antonio Benitez Today's Date: 02/17/2025 Reason: R Peroneal Tendonitis Visit number: 5 Supervised time: 37' Total time: 49' Precautions: R Peroneal Tendonitis Subjective: Pain: 2/10 Overall progress: Is not noticing much of a change since I.E. Plans to potentially get an injectionto affected area at his next follow up. [...] sign below. ___ Date: documented in this encounterMoberly Regional Medical [id number] History of Present illness Narrative* Mary Coffey PT - 02/11/2025 7:00 AM EDT Images from the original note were not [...] progress ankle and foot strengthening and stabilization therexwith no complaints of increased pain or difficulty. Plan Continue PT per POC. I hereby deem this POC medically necessary. Please sign below. ___ Date: documented in this encounterMoberly Regional Medical [id number] History of Present illness Narrative* Mary Coffey, PT - 02/09/2025 7:00 AM EDT Images from the original note were not [...] technique noted with ankle 4 way, no longerrequiring tactile/verbal cueing to avoid LE compensations with inv/ev. Continued to be challenged with correct technique with foot intrinsics however technique is improving. Continue to progress as tolerated. Plan Continue PT per POC. I hereby deem this POC medically necessary. Please sign below. ___ Date: documented in this encounterMoberly Regional Medical [id number] History of Present illness Narrative* Mary Coffey, PT - 02/04/2025 7:00 AM EDT Images from the original note were not included. Physical Therapy Physical Therapy Treatment Visit Patient Name: Marco Antonio Benitez Today's Date: 02/04/2025 Reason: R Peroneal Tendonitis Visit number: 2 Supervised time: 47' Total time: 47' Precautions: R Peroneal Tendonitis Subjective: Pain: 2-08/31 Overall progress: Compliant with HEP. Continues to have sharp pain in lateral foot when stepping onuneven surfaces without shoes. Treatment: Manual: x9' STM [...] sign below. ___ Date: documented in this encounterMoberly Regional Medical [id number] History of Present illness Narrative* Mary Coffey, PT - 02/01/2025 6:00 PM EDT Images from the original note were not [...] believes has helped with his pain. Pain: 5-12/01 Imaging: XR of bilateral feet with posttraumatic [...] sign below. __ Date: documented in this encounterMoberly Regional Medical [id number] NoteHNO ID: [id number] Author: BOB JIM MD Service: ? Author [...] patient's care. Bob Jim MD [facility]Ge[facility] History of Present illness Narrative* Bob Jim MD - 01/20/2025 2:58 PM EDT [facility] - New Patient [...] MD Medical Decision Making documented in this encounterMartins Ferry [facility]07-30-2025 History of Present illness Narrative* Maisha Tate, RT(R) - 01/20/2025 2:15 PM EDT Radiology Service Progress Note PATIENT NAME: Marco Antonio Benitez DATE OF SERVICE: January 20, 2025 TIME: 2:04 PM PATIENT IDENTITY VERIFICATION COMPLETED USING TWO (2) IDENTIFIERS: Name and Date of confirmedby patient verbally. FALL SCREENING: Has the patient had 2 falls in the last year or 1 fall with injury or currently using an Ambulatory Assistive Device (Walker, Cane, Wheelchair, Crutches, etc.)? No PATIENT GENDER DATA: Assigned male at PATIENT RELEVANT IMPLANT DATA REVIEWED: Not Applicable PATIENT PRESENTS WITH AN IMPLANTABLE OR ATTACHED DAIRY GRAZER: No RADIOLOGY DEPARTMENT: General X-ray: Exam(s) Completed: Lower Extremity X- Ray(s): Feet, Right and Wt. Bearing PERIPHERAL IV DATA: Not applicable SIGNED BY: RT Toribio(R) January 20, 2025 2:04 PM documented in this encounterMartins Ferry Hospital07-30-2025 NoteHNO ID: [id number] Author: MAISHA TATE RT(Adrian) Service: Radiology Author [...] PATIENT PRESENTS WITH AN IMPLANTABLE OR ATTACHED DAIRY GRAZER: No RADIOLOGY DEPARTMENT: General X-ray: Exam(s) Completed: Lower Extremity X-Ray(s): Feet, Right and Wt. Bearing PERIPHERAL IV DATA: Not applicable SIGNED BY: RT Toribio(R) January 20, 2025 2:04 [facility]05-30-2025 History of Present illness Narrative* Marco Antonio Von DO Vasiliy - 11/20/2024 5:15 PM EDT Images from the original note were not included. [address] , [address] [facility], [address] P: [phone] F: [phone] HPI Historian of [facility]: patient Marco Antonio Benitez is a 69 [...] fever. RTO if worsening. documented in this encounterMoberly Regional Medical [id number] Telephone encounter Note* Telephone Encounter - Clemente Vega MA - 08/21/2024 9:26 AM EST Hi, I am calling for Marco Antonio Benitez. Date of , 1654, he had just seen Dr. Block, and the nursehad asked him about a refill on the guaifenesin-codeine cough syrup, and he actually thought he hada refill on it. He does not if he could get a refill of that, if it could go to [facility], I appreciate it. Marco Antonio's date of is 55 and phone number. You can reach me at [phone], if the re is any question. Thanks, brisa. -Copied from [employer] Okay to refill? [facility] [id number] Miscellaneous Notes* Telephone Encounter - Clemente Vega MA - 08/21/2024 9:26 AM EST Hi, I am calling for Marco Antonio Benitez. Date of , 1654, he had just seen Dr. Block, and the nursehad asked him about a refill on the guaifenesin-codeine cough syrup, and he actually thought he hada refill on it. He does not if he could get a refill of that, if it could go to [facility], I appreciate it. Marco Antonio's date of is 55 and phone number. You can reach me at [phone], if the re is any question. Thanks, brisa. -Copied from [employer] Okay to refill? documented in this encounterNOLafayette Regional Health CenterXuvgdrohww04-64-1444 History of Present illness Narrative* Annette Block MD - 08/18/2024 9:15 AM EST Images from the original note were not [...] are normal. Kidney function is normal. Electrolytes arenormal. ASSESSMENT AND PLAN: Assessment & Plan 1. Pure hypercholesterolemia (CMS/HCC) (Primary) Will check labs next visit. - CBC and differential; Future - Comprehensive metabolic panel; Future - Lipid panel; Future - CBC and differential - Comprehensive metabolic panel - Lipid panel 2. 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 Denies any anginal symptoms. Continue [...] potential to increase the dosage to 2 mgif necessary. He is advised to maintain a balanced diet rich in proteins and engage in regular physical activity to prevent muscle mass loss. documented in this encounterMoberly Regional Medical CenterPkqnmvhimp03-41-2627 History of Present illness Narrative* Adalberto Lyn NP - 07/22/2024 8:00 AM EST Images from the original note were not included. HISTORY OF PRESENT ILLNESS: EST PT Marco Antonio Benitez is an 69 y.o. @ male. (EST PT) - HERE FOR YEARLY RECHECK OF (R) TKA 04/07/20 (4 YRS, 3 MONTHS, 2 WKS) XRAYS TODAY, 07/22/24 IN [facility] XRAYS 07/15/23 IN [facility] / EPIC FINISHED PHYSICAL THERAPY ; POST-OP OLD NOTE: DOING WELL. 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 DENIES ANY INSTABILTIY [...] Stable RT total knee replacement. 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 History of right knee joint replacement Z96.651 2. Acute pain of right knee M25.561 XR knee 1 or 2 views right 3. Strain of right shoulder, initial encounter S46.916D PLAN: I reviewed xray of the right knee with patient which showed stable RT TKA. He states he is doing well with his right shoulder and knee with improved strength in right shoulder. He will follow up in 1year for RCK and xray of the right knee. Questions answered in laymen terms at the bedside. The diagnosis, home exercise plan and any ongoing restrictions/ recommendations reviewed. If unable to be reached in office, I recommend evaluation at nearest Emergency Room if any symptoms worsened or new symptoms develop for requiring urgent evaluation. documented in this [facility]01-08-2025 Telephone encounter Note* Telephone Encounter - Gretchen Lozano LPN - 07/01/2024 12:06 PM EST states edwardo bhardwaj does not work for him. Requesting Cheratussin RX RX loaded [facility] [id number] Miscellaneous Notes* Telephone Encounter - Gretchen Lozano LPN - 07/01/2024 12:06 PM EST states edwardo bhardwaj does not work for him. Requesting Cheratussin RX RX loaded documented in this [facility]01-08-2025 History of Present illness Narrative* Domingo Silva NP - 07/01/2024 9:45 AM EST Images from the original note were not [...] LEGS TWICE DAILY UNTIL CLEAR, THEN USE NEEDEDFOR ITCH zolpidem (AMBIEN) 5 mg, Nightly PRN [...] XR chest 2 views documented in this encounterMoberly Regional Medical [id number] NoteBELLATRIUM HEALTH [facility] Note Chief Complaint: Patient here [...] history of Coronary artery disease, Diabetes mellitus (CMS/[facility]), Factor V Leiden (CMS/[facility]), Family history of premature CAD, [...] and systolic f (more content not included)... [facility]11-18-2024 Telephone encounter Note* Telephone Encounter - AYLIN Helm - 05/11/2024 8:41 AM EST Spoke with .. answered questions.. does not need antibiotic to get new crown cemented on, no drilling or work to gum/ teeth [facility] Work Phone: [phone]) 713-905811-18-2024 Miscellaneous Notes* Telephone Encounter - AYLIN Helm - 05/11/2024 8:41 AM EST Spoke with .. answered questions.. does not need antibiotic to get new crown cemented on, no drilling or work to gum/ teeth * Telephone Encounter - Varsha Gordillo - 05/11/2024 8:30 AM EST Patient's called regarding his upcoming dentist appointment. Patient already took antibiotic for the crown, he has to go back for the second part. They want to know if he needs the antibiotic for this. The dentist does not believe he does. They do already have the antibiotic from the dentist from before if needed. Please advise [phone]. documented in this encounterMoberly Regional Medical [id number] Telephone encounter Note* Telephone Encounter - Varsha Gordillo - 05/11/2024 8:30 AM EST Patient's called regarding his upcoming dentist appointment. Patient already took antibiotic for the crown, he has to go back for the second part. They want to know if he needs the antibiotic for this. The dentist does not believe he does. They do already have the antibiotic from the dentist from before if needed. Please advise [phone]. [facility] [id number] History of Present illness Narrative* Jr. Yeimi Cardenas, - 04/22/2024 8:00 AM EDT Images from the original note were not included. HISTORY OF PRESENT ILLNESS: EST PT Marco Antonio Benitez is an 68 y.o. @ male. (EST PT) RECHECK (R) SHOULDER ; HERE FOR MRI RESULTS 04/16/24 IN [facility] XRAYS, 04/10/24 IN [facility] MRI, 04/16/24 IN [facility] NO MDP / PREDNISONE NO CORTISONE [...] LEGS TWICE DAILY UNTIL CLEAR, THEN USE NEEDEDFOR ITCH zolpidem (AMBIEN) 5 mg, Oral, Nightly [...] I am acting as scribe for Dr. Cardenas/jeh, PLAN: We have reviewed prior (R) shoulder xrays and discussed (R) shoulder MRI results with patientat bedside : Small infraspinatus tear with biceps [...] his right shoulder strength / ROM, if examwarrants we may recommend cortisone injections / formal physical therapy. Yeimi Cardenas D.O. documented in this encounterMoberly Regional Medical [id number] History of Present illness Narrative* Jr. Yeimi Cardenas, - 04/10/2024 11:00 AM EDT Images from the original note were not included. HISTORY OF PRESENT ILLNESS: EST PT Marco Antonio Benitez is an 68 y.o. @ male. (EST PT) NEW COMPLAINT, (R) SHOULDER DISCOMFORT. SYMPTOMS BEGAN 03/27/24 (2 WKS) - DENIES ANY INJURY XRAYS DONE TODAY, 04/10/24 IN [facility] NO MRI NO MDP / PREDNISONE [...] LEGS TWICE DAILY UNTIL CLEAR, THEN USE NEEDEDFOR ITCH zolpidem (AMBIEN) 5 mg, Oral, Nightly [...] patient (and ) at bedside. After examination ofhis right shoulder today we are recommending a MRI to r/o a rotator cuff tear. We have discussed avoiding motions including, but not limited to : no fast / aggressive motions and avoid carrying heavyobjects away from body. We have discussed his HEP and restrictions and will see him back in 2 weeksto discuss (R) shoulder MRI results. Yeimi Cardenas D.O. documented in this encounterMoberly Regional Medical [id number] History of Present illness Narrative* AYLIN Spence - 02/13/2024 9:15 AM EDT Images from the original note were not [...] concerns. He continues to consult with his religious assistant annually, with the next appointment scheduled for [...] accumulation. He takes Zyrtec for allergies, which hebelieves causes dryness in his ears. He also experiences itchiness in his ears. He has a living will and healthcare power of commercial litigation attorney in place. IMMUNIZATIONS He had shingles vaccine and pneumococcal vaccines. Respiratory: no cough, wheeze, or shortness of breath. Cardiac: no chest pain, no edema, no palpitations, dizziness or fainting Gastrointestinal: denies constipation, rectal bleeding Neurologic: denies memory loss, tingling/numbness, tremor Pt. can get up from the chair without using the arms of the chair in < 30 seconds. Denies issueswith depression. Denies more than 2 falls in [...] repair TOTAL KNEE ARTHROPLASTY Right VASECTOMY 1998 SOCIAL HISTORY: Social History Tobacco Use Smoking [...] LEGS TWICE DAILY UNTIL CLEAR, THEN USE NEEDEDFOR ITCH zolpidem (AMBIEN) 5 mg, Oral, Nightly [...] artery disease. He sees [facility]. He reports no chest pain, shortness of [...] stable. 7. Medicare annual wellness Seen by Kaitlynn Duffy PA-C in conjunction with PCP. Patient [...] recently. A routine eye check-up with Dr. Dee planned, we will request. 8. Advance care planning. He has a living will and healthcare power of commercial litigation attorney in place. Wishes to be full code. 9. Primary insomnia Stable, continue to monitor. Patient is here for follow up of the above chronic problems. I am following Dr. Block's established plan of care for these issues. Dr. Block was in the office suite today and is supervising patient care. documented in this encounterMoberly Regional Medical [id number] History of Present illness Narrative* Jevon Last MD - 11/22/2023 1:45 PM EDT REASON FOR VISIT: Follow up for [...] - No malignancy. 3 cores of [place]. 08/25/2020:[place] 3+3, 2/ cores 05/28/2019: [place] 3+3=6, 1/12 cores PSA today: 11/15/23 - 1.22 10/29/2022 - 1.19 10/03/2022 - 1.15 03/2022 - 1.19 08/2021: 0.8 02/23/2021: 1.17 08/18/2020: 1.03 02/20/2020: 1.97 No results found for: PSA MRI 10/2021 - left mid anterior TZ PIRADS3 lesion. 29cc gland MRI 02/2020 - negative Some aspects were copied from previous note. All aspects have been reviewed and reflect my clinicaldecision making from today. IMAGING MRI Prostate 11/22/23 [...] year Jevon Last MD documented in this encounterMartins Ferry Hospital05-31-2024 History of Present illness Narrative* Glenda Basilio RN - 11/22/2023 11:10 AM EDT Radiology Service Progress Note DATE [...] DATE: November 22, 2023 TIME: 11:22 AM * Christopher Gomez RT(R) - 11/22/2023 11:10 AM EDT Radiology Service Progress Note PATIENT NAME: Marco Antonio Benitez DATE OF SERVICE: November 22, 2023 TIME: 11:51 AM PATIENT IDENTITY VERIFICATION COMPLETED USING TWO (2) IDENTIFIERS: Name and Date of confirmedby patient verbally and Name and Date of confirmed by identification band. FALL SCREENING: Has the patient had 2 falls in the last year or 1 fall with injury or currently using an Ambulatory Assistive Device (Walker, Cane, Wheelchair, Crutches, etc.)? No PATIENT GENDER DATA: Male PATIENT RELEVANT IMPLANT DATA REVIEWED: Yes PATIENT PRESENTS WITH AN IMPLANTABLE OR ATTACHED DAIRY GRAZER: No RADIOLOGY DEPARTMENT: MR; Exam(s) Completed: Body: Prostate PERIPHERAL IV DATA: Site assessment: Clean,Dry and Intact, Site disposition Discontinued SIGNED BY: RT Ar(R), Em BARRERA November 22, 2023 11:51 AM documented in this encounterMartins Ferry Hospital02-07-2024 History of Present illness Narrative* Yudy Gupta NP - 07/31/2023 9:15 AM EST Marco Antonio Benitez is a 68 y.o. male presents with chief complaint of 6 Month Follow-up HPI: Review lab drawn 07/30/2023. He continues to take Ozempic which was increased at last OV. He has seenDr. Ronald payan for right knee pain (hx TKA). He had x- rays 07/15/2023. Patient reports he may need a left knee replacement. He follows with [facility] every 6 months and they are [...] LEGS TWICE DAILY UNTIL CLEAR, THEN USE NEEDEDFOR ITCH zolpidem (AMBIEN) 5 mg, Oral, Nightly [...] ASSESSMENT AND PLAN: 1. Essential (primary) hypertension ([facility]) Doing well. Blood pressures have been good. Continue lifestyle modifications. Continue current medication. Call if any problems or if home blood pressures rising. - CBC and differential; Future - Comprehensive metabolic panel; Future - CBC and differential - Comprehensive metabolic panel 2. Pure hypercholesterolemia ([facility] [facility] Continue Atorvastatin, eat a healthy diet, and exercise regularly. - Lipid panel; Future - Lipid panel 3. Prediabetes Continue to minimize added sugars, carbohydrates and control overall calories. Encouraged regular exercise will help to increase your sensitivity to insulin and can help with weight loss or maintenance to prevent progression to diabetes. 4. 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([facility]) Doing well. Denies any anginal symptoms. Continue aggressive risk factor modification. Continue current medications. Call if any problems. 5. Gastroesophageal reflux disease without esophagitis Denies breakthrough symptoms with taking Omeprazole. 6. Generalized anxiety disorder ([facility]/HCC) Stable. He is not taking Alprazolam regularly. 7. Osteopenia of multiple sites Last DEXA 06/2018 showed osteopenia. 8. Primary insomnia Uses Ambien as needed. Continue current regimen. 9. Primary osteoarthritis involving multiple joints Uses Tylenol as needed for pain. 10. Factor V Leiden ([facility]/HCC) Stable. Continue to monitor. 11. Vitamin D deficiency He is taking supplement. Continue to monitor. - Vitamin D 25 hydroxy; Future - Vitamin D 25 hydroxy 12. History of malignant neoplasm of prostate He is following with Urology and getting PSA checked regularly. 13. Morbid obesity ([facility]/HCC) Encouraged to eat a healthy diet and exercise regularly. 14. BMI 32.0-32.9,adult As above. Dr. Block was present in the office at the time of visit today and is supervising patient care. I amfollowing Dr. Block's established plan of care for the above issues. documented in this encounterMoberly [facility] [id number] Chief Complaint: Patient here [...] Coronary atherosclerosis I25.10: Atherosclerotic heart disease of sioux coronary artery without angina pectoris 2. Abnormal findings diagnostic imaging heart+coronary circulat - Abnormal calcium score 99th percentile for age and gender and race R93.1: Abnormal findings on diagnostic imaging of heart and coronary circulation 3. 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 Dysli (more content not included)...[facility] 05-22-2023 History of Present illness Narrative* Jevon Last MD - 05/22/2023 4:48 PM EST VIRTUAL VISIT PROGRESS NOTE This is a virtual visit using [employer] Zoom Video Visit. It required patient-provider interaction for the medical decision making as documented below. I have communicated my name and active licensure. The patient's identity and physical location wereverified at the time of this visit. Either the patient or their legal footwear sales representative has been informed of the risks and benefits of -- and alternatives to -- treatment through a remote evaluation andconsents to proceed with the evaluation remotely. REASON [...] aspects have been reviewed and reflect my clinicaldecision making from today. PATHOLOGY: FINAL DIAGNOSIS A. [...] after Jevon Last MD documented in this encounterMart[facility]09-12-[facility]23 Evaluation note* Encounter Date Diagnosis Assessment Notes Treatment Notes Treatment Clinical Notes Feb, Spondylolisthesis of lumbar mehdi on (ICD-10 - M43.16) Patient continues to have [...] again in a year with another x-ray. Feb,History of lumbar fusion (ICD-10 - Z98.1) [facility] Other 05-05-2023 History of Present illness Narrative* Mark Anthony Real MD - 10/26/2022 10:30 AM EDT REASON FOR VISIT: Follow up for Adenocarcinoma of Prostate I have communicated my name and active licensure. The patient's identity and physical location wereverified at the time of this visit. Either the patient or their legal footwear sales representative has been informed of the risks and benefits of -- and alternatives to -- treatment through a remote evaluation andconsents to proceed with the evaluation remotely. HPI: 67 year old male with prostate cancer on . Prostate Biopsies: 04/12/22 - No malignancy. 3 cores of CHIRAG. 08/25/2020:[place] 3+3, 2/12 cores 05/28/2019: Nina 3+3=6, 1/12 [...] 1 tablet by mouth once daily. multivit-mins/iron/folic/lycop (MV,CA,DSX-BUVH-ID-LYCOPENE ORAL) Take 1 tablet by mouth once [...] 25, 2022 5:28 PM documented in this encounterMartins Ferry Hospital10-28-2022 Miscellaneous Notes* Telephone Encounter - Mark Anthony Real MD - 04/20/2022 2:37 PM EDT I spoke with And Mrs. Benitez. Biopsy results are favorable. No malignancy noted. 3 cores of CHIRAG. We will continue with and recheck PSA in 6 months. Mark Anthony Real MD Department of Urology [employer] Laparoscopy Fellow documented in this encounterMartins Ferry Hospital10-20-2022 History of Present illness Narrative* Kim [...] Kim Saeed RN T documented in this encounterMartins Ferry Hospital10-20-2022 Nurse Note* Kim Saeed RN - [...] This Education Session: None Instruction Provided To:Patient Sales Floor Manager Present: not applicable Discipline: Nursing Learning Topic: Survival Skills: Complication Prevention Symptom Management Patient Evaluation: Verbalizes understanding: Yes Supplemental Material Given: Written Material Instructed By Kim Saeed RN In Department Urology . 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 MRI [...] reconstruction of the prostate gland using the [employer] system. Trans-rectal ultrasound with a guide was [...] MD May 14, 2022, documented in this encounterMartins Ferry Hospital09-15-2022 Evaluation note* Encounter Date Diagnosis Assessment Notes Treatment Notes Treatment Clinical Notes Feb, Spondylolisthesis of lumbar mehdi on (ICD-10 - M43.16) Patient is doing well [...] lateral bending. We will see the patient againin a year with another xray unless new symptoms arise. Feb,History of lumbar fusion (ICD-10 - Z98.1) [facility] Other 08-31-2022 Miscellaneous Notes* Telephone Encounter - Mark Anthony Real MD - 02/21/2022 6:59 PM EDT Spoke with pt and his over the phone. We cannot accomodate 04/26 for TP biopsy. Offered 03/08, which does not work for the patient. We will move the date to 04/12/22. Mark Anthony Real MD Department of Urology [employer] and Laparoscopy Fellow documented in this encounterMartins Ferry Hospital08-25-2022 Evaluation note* Encounter Date Diagnosis Assessment Notes Treatment Notes Treatment Clinical Notes Jan, Acute pain of left knee (ICD-10 - M25.562) Jan,therWe had a long discussion with the patient [...] follow-up with me on an as-needed basis. [facility] Other 06-02-2022 History of Present illness Narrative* Hugo Garcia MD - 11/23/2021 11:45 AM EDT VIRTUAL VISIT PROGRESS NOTE This is a virtual visit using [employer] video visit. It required patient-provider interaction for the medical decision making as documented below. REASON FOR VISIT: Follow up for Adenocarcinoma of Prostate HPI: 66 year old male with prostate cancer on active surveillance for [place] 3+3 disease. His lastMRI October 2021 showed a PIRADS 3 lesion. Last PSA in August 2021 was 0.8. Prostate Biopsies: 08/25/2020:[place] 3+3, 2/12 cores 05/28/2019: Nina 3+3=6, 1/12 [...] 1 tablet by mouth once daily. multivit-mins/iron/folic/lycop (MV,CA,YHH-HTIK-CC-LYCOPENE ORAL) Take 1 tablet by mouth once [...] with prostate cancer on active surveillance for [place] 3+3 disease. His last MRI October 2021 showed a PIRADS 3 lesion. Last PSA in August 2021 was 0.8. 1) Prostate cancer, [place] 3+3 disease 2) MRI 0.8 CM LEFT [...] MD I spent more than 30 minutes glpo-ex-hphx with the patient and over half the time was devoted to counseling and/or coordination of care. documented in this encounterMartins Ferry Hospital05-12-2022 NotePROCEDURE: XR ANKLE LT MIN 3 [...] Electronically authenticated by: KEN REGAN Date: 2021-11-02 11:06[facility]05-12-20[facility] NotePROCEDURE: XR ANKLE LT MIN 3 [...] Electronically authenticated by: KEN REGAN Date: 2021-11-02 11:06[facility]05-12-2022 NotePROCEDURE: XR FOOT RT MIN 3 [...] Electronically authenticated by: KEN REGAN Date: 2021-11-02 10:41[facility]05-06-2022 History of Present illness Narrative* Annette [...] 2021 TIME: 8:58 AM documented in this encounterMartins Ferry HospitalEvaluation note* Diagnosis Malignant neoplasm of prostate (HCC) Malignant neoplasm of prostate documented in this encounter [facility]Evaluation [facility]* Diagnosis Prostate cancer (HCC) Malignant neoplasm of prostate [facility] noteNo assessment information availableGerman Hospital Work Phone: Evaluation note* Diagnosis Prostate cancer (HCC)- Primary Malignant neoplasm of prostate [facility] Diagnosis Prostate cancer (HCC)- Primary Malignant neoplasm of prostate [facility] Diagnosis Elevated PSA- Primary Elevated prostate specific antigen (PSA) [facility]* Diagnosis Prostate cancer (HCC)- Primary Malignant neoplasm of prostate [facility] Diagnosis Prostate cancer (HCC)- Primary Malignant neoplasm of prostate [facility]* Diagnosis Essential (primary) hypertension (CMS/HCC)- Primary Unspecified essential hypertension Pure hypercholesterolemia (CMS/HCC) Pure hypercholesterolemia Prediabetes Other abnormal glucose 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) Gastroesophageal reflux [...] obesity BMI 32.0-32.9,adult documented in this encounter [facility] HealthcareEvaluation [facility]* Diagnosis Prostate cancer (HCC)- Primary Malignant neoplasm of prostate Elevated PSA Elevated prostate specific antigen (PSA) documented in this encounter [facility]* Diagnosis Prostate cancer (HCC) Malignant neoplasm of prostate documented in this encounter [facility]* Diagnosis Screening for genitourinary condition Screening for other and unspecified genitourinary condition documented in this encounter [facility]* Diagnosis Acute pain of right shoulder- Primary Internal derangement of right shoulder documented in this encounter [facility] HealthcareEvaluation note* Diagnosis Internal derangement of right shoulder- Primary documented in this encounter [facility] HealthcareEvaluation note* Diagnosis Essential hypertension (CMS/HCC)- Primary Unspecified essential hypertension 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) Prediabetes Other abnormal glucose Pure hypercholesterolemia (CMS/HCC) Pure hypercholesterolemia Generalized anxiety disorder (CMS/HCC) Generalized anxiety disorder Primary insomnia Persistent disorder of initiating or maintaining sleep Medicare annual wellness visit, subsequent ACP (advance care planning) Other specified counseling Prostate cancer screening Special screening for malignant neoplasm of prostate Osteopenia of multiple sites documented in this encounter [facility] HealthcareEvaluation note* Diagnosis Acute cough- Primary Bronchitis Bronchitis, not specified as acute or chronic Decreased breath sounds at right lung base documented in this encounter [facility] HealthcareEvaluation note* Diagnosis Acute cough- Primary documented in this encounter [facility] HealthcareEvaluation note* Diagnosis History of right knee joint replacement- Primary Acute pain of right knee Strain of right shoulder, initial encounter documented in this encounter [facility] HealthcareEvaluation note* Diagnosis Acute cough documented in this encounter [facility] HealthcareEvaluation note* Diagnosis Pure hypercholesterolemia (CMS/HCC)- Primary Pure hypercholesterolemia 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) Prediabetes Other abnormal glucose Generalized anxiety disorder (CMS/HCC) Generalized anxiety disorder Primary insomnia Persistent disorder of initiating or maintaining sleep Vitamin D deficiency History of malignant neoplasm of prostate Obesity (BMI 30.0-34.9) documented in this encounter [facility] HealthcareEvaluation note* Diagnosis Acute bronchitis, unspecified organism- Primary documented in this encounter [facility] HealthcareEvaluation note* Diagnosis Pain in right foot- Primary Pain in limb [facility]* Diagnosis Prostate cancer (HCC)- Primary Malignant neoplasm of prostate [facility]* Diagnosis Arthritis of right midfoot- Primary Peroneal tendinitis of lower leg, right [facility]* Diagnosis Pain in right foot Pain in limb [facility]* Diagnosis Peroneal tendonitis, right- Primary documented in this encounter [facility] HealthcareEvaluation note* Diagnosis Peroneal tendonitis, right- Primary documented in this encounter [facility] HealthcareEvaluation note* Diagnosis Peroneal tendonitis, right- Primary documented in this encounter [facility] HealthcareEvaluation note* Diagnosis Pure hypercholesterolemia- Primary Pure hypercholesterolemia Prediabetes Other abnormal glucose 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 Generalized anxiety disorder Generalized anxiety disorder Primary insomnia Persistent disorder of initiating or maintaining sleep Vitamin D deficiency Osteopenia of multiple sites Medicare annual wellness visit, subsequent ACP (advance care planning) Other specified counseling documented in this encounter [facility] HealthcareEvaluation note* Diagnosis Peroneal tendonitis, right- Primary documented in this encounter [facility] HealthcareEvaluation note* Diagnosis Arthritis of right midfoot- Primary Peroneal tendinitis of lower leg, right documented in this encounter [facility] general Narrative - Reported* Type Description Date Medical History Blood clots Medical Historyfactor VSurgical Historyhammertoe repairSurgical Historyvasectomy Surgical Historyhammer toeSurgical [id number] History [id number] Historyfusion, lisfranc fracture repair Dr. Quarles 05/2016Surgical HistoryEGD/Colonoscopy (normal- internal hemorrhoids)04/15/17 Surgical HistoryPLIF (posterior lumbar interbody fusion)04/02/18urgical History Right Knee [id number] Historysee above [facility] Other Reason for referral (narrative)No reason for referral information availableBlanchard [facility] Work Phone: Reason for visit Narrative* Rehabilitation - Outpatient (Routine) - AuthorizedSpecialtyDiagnoses / ProceduresReferred By ContactReferred To ContactPhysical Therapy Diagnoses Peroneal tendinitis, right leg Procedures [place] PHYSICAL THERAPY EVALUATION HIGH COMPLEX 45 MINS [facility] [address] [place] [address] Phone: tel: fax: [facility] [address] [place] [address] Phone: tel: fax:[phone] Referral IDStatusReasonStart DateExpiration DateVisits RequestedVisits [id number]/[id number]/ [facility] HealthcareReason for visit Narrative* Rehabilitation - Outpatient (Routine) - AuthorizedSpecialtyDiagnoses / ProceduresReferred By ContactReferred To ContactPhysical Therapy Diagnoses Peroneal tendinitis, right leg Procedures [place] PHYSICAL THERAPY EVALUATION HIGH COMPLEX 45 MINS [facility] [address] [place] [address] Phone: tel: fax: [facility] [address] [place] [address] Phone: tel: fax: Referral IDStatusReasonStart DateExpiration DateVisits RequestedVisits [id number]/[id number] [facility] HealthcareReason for visit Narrative* Rehabilitation - Outpatient (Routine) - AuthorizedSpecialtyDiagnoses / ProceduresReferred By ContactReferred To ContactPhysical Therapy Diagnoses Peroneal tendinitis, right leg Procedures [place] PHYSICAL THERAPY EVALUATION HIGH [place] [address] [place] [address] [place] [address] Phone: tel: fax: [facility] [address] [place] [address] Phone: tel: fax: Referral IDStatusReasonStart DateExpiration DateVisits RequestedVisits [id number]/[id number] [facility] HealthcareReason for visit Narrative* Rehabilitation - Outpatient (Routine) - AuthorizedSpecialtyDiagnoses / ProceduresReferred By ContactReferred To ContactPhysical Therapy Diagnoses Peroneal tendinitis, right leg Procedures [place] PHYSICAL THERAPY EVALUATION HIGH COMPLEX [address] [place] [address] [place] [address] Phone: tel: fax: Mary Coffey PT Referral IDStatusReasonStart DateExpiration DateVisits RequestedVisits [id number]/1/202512/31/20252030 [facility] Summary Purpose Family History Relationship Condition Age at Onset Recorded Date/T rosa father Sick sinus syndrome Unknown Not SpecifiedMalignant neoplasm of colonUnknownbrotherMalignant neoplasm of throatUnknownbrotherHeart diseaseUnknownbrotherHistory of heart surgeryUnknown Heart diseaseUnknownsisterFibromyalgiaUnknownHypertensionUnknown Relationship Condition Age at Onset Recorded Date/T rosa father Sick sinus syndrome Unknown motherMalignant neoplasm of colonUnknownbrotherMalignant neoplasm of throat UnknownbrotherHeart diseaseUnknownbrotherHistory of heart surgeryUnknownHeart diseaseUnknownsisterFibromyalgiaUnknownHypertensionUnknownbrotherMalignant neoplasmUnknownfatherHeart diseaseUnknownHistory of strokeUnknownDeceasedUnknown motherMalignant neoplasmUnknown Advance Directives Advance Directive Response Recorded Date/ Time Advance Directives Yes April 07, 2018 2:27pm Reason for Referral SpecialtyDiagnoses / ProceduresReferred By ContactReferred To Contact IMAGING Diagnoses Malignant neoplasm of prostate (HCC) Procedures MRI PROSTATE WO/W IVCON MRI PELVIS W/WO CONTRAST Navin Redman MD [address] [place] [address] Mr Imaging Referral IDStatusReasonStart DateExpiration DateVisits RequestedVisits [id number] Auto-Generated Referral [id number] / ProceduresReferred By ContactReferred To Contact IMAGING Diagnoses Prostate cancer (HCC) Procedures MRI 3D POST PROCESSING 3D RENDERING W/INTERP&POSTPROC DIFF WORK STATION Jevon Last MD [address] [place] [address] Mr Imaging [place] [address] Referral IDStatusReasonStart DateExpiration DateVisits RequestedVisits [id number] Review Auto-Generated Referral [id number] / ProceduresReferred By ContactReferred To Contact IMAGING Diagnoses Prostate cancer (HCC) Procedures MRI PROSTATE WO/W IVCON MRI PELVIS W/O & W/CONTRAST MATERIAL Jevon Last MD [facility] [place] [address] Mr Imaging [place] [address] Referral IDStatusReasonStart DateExpiration DateVisits RequestedVisits [id number] Review Auto-Generated Referral eferral IDStatusReasonStart DateExpiration DateVisits RequestedVisits [id number] Auto-Generated Referral eferral IDStatusReasonStart DateExpiration DateVisits RequestedVisits [id number] Auto-Generated Referral Chief Complaint and Reason for Visit Chief Complaint M25.562 Chief Complaint M25.562 m43.16 Chief Complaint m43.16 Chief Complaint Admit Date m54.50 March 03, 2025 5:20pm Chief Complaint Admit Date m54.50 March 03, 2025 5:20pm yearly follow up PLIF w/xray February 222024 11:18am Medications Administered Section Medication OrderMAR ActionAction DateDoseRateSite cephALEXin 500 mg cap(s) (KEFLEX) 500 mg, ORAL, ONCE, 1 dose, On Gwendolyn 04/12/22 at 0830, Please document the antimicrobial indication: Empiric Given04/12/2022 2:50 PM CKT398 mg Additional Source Comments (unrecognized sect ion and content) No Status Records FoundNo Status Records FoundNo Status Records FoundNo Status Records FoundNo Status Records FoundNo Status Records FoundNo Status Records FoundNo Status Records FoundNo Status Records FoundNo Status Records Found INFORMATION SOURCE (unrecogn ized section and content) DATE CREATED AUTHOR 12/18/2017 [facility] DATE CREATED AUTHOR AUTHOR'S ORGANIZ ATION 12/18/2017 [facility] DATE CREATED AUTHOR AUTHOR'S ORGANIZ ATION 06/14/2018 [facility] DATE CREATED AUTHOR AUTHOR'S ORGANIZ ATION 10/26/2020 [facility] DATE CREATED AUTHOR AUTHOR'S ORGANIZ ATION 10/13/2021 [facility] DATE CREATED AUTHOR AUTHOR'S ORGANIZ ATION 10/08/2022 [facility] DATE CREATED AUTHOR AUTHOR'S ORGANIZ ATION 05/26/2024 [facility] DATE CREATED AUTHOR AUTHOR'S ORGANIZ ATION 02/27/2025 [facility] DATE CREATED AUTHOR AUTHOR'S ORGANIZ ATION 03/06/2025 [facility] DATE CREATED AUTHOR AUTHOR'S ORGANIZ ATION 04/02/2025 [facility] Source Comments (unrecognize d section and content) In the event this informatio n is protected by the Federal Confidentiality of Alcohol and Drug Abuse Patient Records regulations: The Federal rules restrict any use of the information to criminally investigate or prosecute any alcohol or drug abuse patient.[facility] HospitalIn the event this information is protected by the Federal Confidentiality of Alcohol and Drug Abuse Patient Records regulations: The Federal rules restrict any use of the information to criminally investigate or prosecute any alcohol or drug abuse patient.[facility] HospitalIn the event this information is protected by the Federal Confidentiality of Alcohol and Drug Abuse Patient Records regulations: The Federal rules restrict any use of the information to criminally investigate or prosecute any alcohol or drug abuse patient.[facility] HospitalIn the event this information is protected by the Federal Confidentiality of Alcohol and Drug Abuse Patient Records regulations: The Federal rules restrict any use of the information to criminally investigate or prosecute any alcohol or drug abuse patient.[facility] HospitalIn the event this information is protected by the Federal Confidentiality of Alcohol and Drug Abuse Patient Records regulations: The Federal rules restrict any use of the information to criminally investigate or prosecute any alcohol or drug abuse patient.[facility] HospitalIn the event this information is protected by the Federal Confidentiality of Alcohol and Drug Abuse Patient Records regulations: The Federal rules restrict any use of the information to criminally investigate or prosecute any alcohol or drug abuse patient.[facility] HospitalIn the event this information is protected by the Federal Confidentiality of Alcohol and Drug Abuse Patient Records regulations: The Federal rules restrict any use of the information to criminally investigate or prosecute any alcohol or drug abuse patient.[facility] HospitalIn the event this information is protected by the Federal Confidentiality of Alcohol and Drug Abuse Patient Records regulations: The Federal rules restrict any use of the information to criminally investigate or prosecute any alcohol or drug abuse patient.[facility] HospitalIn the event this information is protected by the Federal Confidentiality of Alcohol and Drug Abuse Patient Records regulations: The Federal rules restrict any use of the information to criminally investigate or prosecute any alcohol or drug abuse patient.[facility] HospitalIn the event this information is protected by the Federal Confidentiality of Alcohol and Drug Abuse Patient Records regulations: The Federal rules restrict any use of the information to criminally investigate or prosecute any alcohol or drug abuse patient.[facility] HospitalIn the event this information is protected by the Federal Confidentiality of Alcohol and Drug Abuse Patient Records regulations: The Federal rules restrict any use of the information to criminally investigate or prosecute any alcohol or drug abuse patient.[facility] HospitalIn the event this information is protected by the Federal Confidentiality of Alcohol and Drug Abuse Patient Records regulations: The Federal rules restrict any use of the information to criminally investigate or prosecute any alcohol or drug abuse patient.[facility] HospitalIn the event this information is protected by the Federal Confidentiality of Alcohol and Drug Abuse Patient Records regulations: The Federal rules restrict any use of the information to criminally investigate or prosecute any alcohol or drug abuse patient.[facility] HospitalIn the event this information is protected by the Federal Confidentiality of Alcohol and Drug Abuse Patient Records regulations: The Federal rules restrict any use of the information to criminally investigate or prosecute any alcohol or drug abuse patient.[facility] HospitalIn the event this information is protected by the Federal Confidentiality of Alcohol and Drug Abuse Patient Records regulations: The Federal rules restrict any use of the information to criminally investigate or prosecute any alcohol or drug abuse patient.[facility] HospitalIn the event this information is protected by the Federal Confidentiality of Alcohol and Drug Abuse Patient Records regulations: The Federal rules restrict any use of the information to criminally investigate or prosecute any alcohol or drug abuse patient.[facility] HospitalIn the event this information is protected by the Federal Confidentiality of Alcohol and Drug Abuse Patient Records regulations: The Federal rules restrict any use of the information to criminally investigate or prosecute any alcohol or drug abuse patient.[facility] HospitalIn the event this information is protected by the Federal Confidentiality of Alcohol and Drug Abuse Patient Records regulations: The Federal rules restrict any use of the information to criminally investigate or prosecute any alcohol or drug abuse patient.[facility] Reason for Visit (unrecogniz ed section and content) ReasonCommentsRadiology MRISpecialtyDiagnoses / ProceduresReferred By Contact Referred To ContactMR IMAGING Diagnoses Malignant neoplasm of prostate (HCC) Procedures MRI PROSTATE WO/W IVCON MRI PELVIS W/WO CONTRAST Navin Redman MD [address] [place] [address] Mr Imaging Referral IDStatusReasonStart DateExpiration DateVisits RequestedVisits [id number] Auto-Generated Referral [id number] UpReasonCommentsAppointmentReason CommentsResultsReasonCommentsProstate BiopsyTransperineal biopsy with nitrous ReasonCommentsFollow UpReasonComments6 Month Follow-upReasonCommentsRadiology MRISpecialtyDiagnoses / ProceduresReferred By ContactReferred To ContactMR IMAGING Diagnoses Prostate cancer (HCC) Procedures MRI PROSTATE WO/W IVCON MRI PELVIS W/O & W/CONTRAST MATERIAL Jevon Last MD [address] [place] [address] Mr Imaging [facility]95 Referral IDStatusReasonStart DateExpiration DateVisits RequestedVisits [id number] Auto-Generated Referral [id number]dghNmlvpsuco / ProceduresReferred By ContactReferred To ContactOrthopaedic Surgery Diagnoses Acute pain of right shoulder Annette Block MD [address] [place] [address] Phone: tel: fax: Jr. Yeimi Cardenas DO [address] [place] [address] Phone: tel: fax: Referral IDStatusReasonStart DateExpiration DateVisits RequestedVisits [id number] Consult and Treat /[id number]Xptqv TjcwTqrudqhmxcacsri41/18/2024 ReasonComments6 Month Follow-upMedicare Annual Wellness Visit SubsequentReason CommentsURIPatient is here today with complaints of URI that began 10 days ago. ReasonOnset DateCommentsneeds rx for cough syrup07/01/2024ReasonOnset Date CommentsMed Pkxkbn5008/21/20246764JismriCzdfodjt9 Month Follow Up of Chronic ConditionsReview lab drawn 08/14/2024, HbA1c = 5.9ReasonCommentsNewReasonComments Radiology XRSpecialtyDiagnoses / ProceduresReferred By ContactReferred To ContactXR IMAGING Diagnoses Pain in right foot Procedures XR FOOT GENERAL 3V AP/LAT/OBL RIGHT RADEX FOOT COMPLETE MINIMUM [address] [place] [address] [place] [address] Phone: tel: fax: XR IMAGING [facility]95 Referral IDStatusReasonStart DateExpiration DateVisits RequestedVisits [id number] Auto-Generated Referral /[id number] month follow up of chronic conditionsReview lab drawn 02/20/2025. He would like to discuss DEXA 02/2024.Medicare Annual Wellness Visit SubsequentReasonCommentsEstablished PatientReasonCommentsPatient Question Care Teams (unrecognized sec tion and content) Team MemberRelationshipSpecialtyStart DateEnd Date Annette Block MD [address] [place] [address] PCP - GeneralInternal Medicine02/21/18Team MemberRelationshipSpecialtyStart Date End Date Annette Block MD [address] [place] [address] PCP - GeneralInternal Medicine02/21/18Team MemberRelationshipSpecialtyStart Date End Date Annette Block MD [address] [place] [address] PCP - GeneralInternal Medicine02/21/18 Team Status: Inactive Member Role Status Yair Block MD Primary Care Provider Active Chana Petty II ProviderActive Team Status: Active Member Role Status Yair Block MD Primary Care Provider Active Team Status: Inactive Member Role Status Yair Block MD Primary Care Provider Active Chana Gardner ProviderActiveTeam MemberRelationshipSpecialtyStart DateEnd Date Annette Block MD [address] [place] [address] PCP - GeneralInternal Medicine02/21/18Team MemberRelationshipSpecialtyStart Date End Date Annette Block MD [address] [place] [address] PCP - GeneralInternal Medicine02/21/18Team MemberRelationshipSpecialtyStart Date End Date Annette Block MD [address] [place] [address] PCP - GeneralInternal Medicine02/21/18Team MemberRelationshipSpecialtyStart Date End Date Annette Block MD [address] [place] [address] PCP - GeneralInternal Medicine02/21/18Team MemberRelationshipSpecialtyStart Date End Date Annette Block MD [address] [place] [address] PCP - GeneralInternal Medicine11/16/22 Mark Anthony Drake MD [address] [place] [address] Urology01/15/23Team MemberRelationshipSpecialtyStart DateEnd Date Annette Block MD [address] [place] [address] PCP - GeneralInternal Medicine11/16/22 Mark Anthony Drake MD [address] [place] [address] Urology01/15/23Team MemberRelationshipSpecialtyStart DateEnd Date Annette Block MD [address] [facility] [address] [place] [address] PCP - GeneralInternal Medicine02/21/18Team MemberRelationshipSpecialtyStart Date End Date Annette Block MD [address] [place] [address] PCP - GeneralInternal Medicine02/21/18Team MemberRelationshipSpecialtyStart Date End Date Annette Blokc MD [address] [place] [address] PCP - GeneralInternal Medicine02/21/18Team MemberRelationshipSpecialtyStart Date End Date Annette Block MD [address] [place] [address] PCP - GeneralInternal Medicine02/21/18 Team Status: Inactive Member Role Status Dates Annette Block MD Primary Care Provider Active St art: March 04, 2024 End: March 04bing Tej[place] MDAttrobin ProviderActiveStart: March 04, 2024 End: March 04, 2024Team MemberRelationshipSpecialtyStart DateEnd Date Annette Block MD [address] [place] [address] PCP - GeneralInternal Medicine11/16/22 Jevon Last MD [address] [place] [address] Referring PhysicianUrology01/28/24 Ron Hartley OD [address] [place] [address] Referring PhysicianOptometry02/13/24 Mark Anthony Drake MD [address] [place] [address] Urology01/15/23 [facility]02/13/24Team MemberRelationshipSpecialtyStart DateEnd Date Annette Block MD [address] [place] [address] PCP - GeneralInternal Medicine11/16/22 Jevon Last MD [address] [place] [address] Referring PhysicianUrology01/28/24 Ron Hartley, OD [facility] [place] [address] Referring PhysicianOptometry02/13/24 Mark Anthony Drake MD [address] [place] [address] Urology01/15/23 [facility]02/13/24Team MemberRelationshipSpecialtyStart DatePark[facility] Annette Block MD [address] [place] [address] PCP - GeneralInternal Medicine11/16/22 Jevon Last MD [address] [place] [address] Referring PhysicianUrology01/28/24 Ron Hartley, OD [facility] [place] [address] Referring PhysicianOptometry02/13/24 Mark Anthony Drake MD [address] [place] [address] Urology01/15/23 [facility]02/13/24Team MemberRelationshipSpecialtyStart DateParkland Memorial Hospital Annette Block MD [address] [place] [address] PCP - GeneralInternal Medicine11/16/22 Jevon Last MD [address] [place] [address] Referring PhysicianUrology01/28/24 Ron Hartley, VARUN [address] [place] [address] Referring PhysicianOptometry02/13/24 Mark Anthony Drake MD [address] [place] [address] Urology01/15/23 [facility]02/13/24Team MemberRelationshipSpecialtyStart DateEnd [facility] Annette Block MD [address] [place] [address] PCP - GeneralInternal Medicine11/16/22 Jevon Last MD [address] [place] [address] Referring PhysicianUrology01/28/24 Ron Hartley, OD [address] [place] [address] Referring PhysicianOptometry02/13/24 Mark Anthony Drake MD [address] [place] [address] Urology01/15/23 [facility]02/13/24Team MemberRelationshipSpecialtyStart End Annette Block MD [facility] [place] [address] PCP - GeneralInternal Medicine11/16/22 Jevon Last MD [address] [place] [address] Referring PhysicianUrology01/28/24 Mark Anthony Drake MD [address] [place] [address] Urology01/15/23Team MemberRelationshipSpecialtyStart DateEnd [facility] Annette Block MD [address] [place] [address] PCP - GeneralInternal Medicine11/16/22 Jevon Last MD [address] [place] [address] Referring PhysicianUrology01/28/24 Mark Anthony Drake MD [address] [place] [address] Urology01/15/23 [facility]02/13/24Team MemberRelationshipSpecialtyStart DateEnd Annette Block MD [address] [place] [address] PCP - GeneralInternal Medicine11/16/22 Jevon Last MD [address] [place] [address] Referring PhysicianUrology01/28/24 Ron Hartley, VARUN [address] [place] [address] Referring PhysicianOptometry02/13/24 Mark Anthony Drake MD [address] [place] [address] Urology01/15/23 [facility]02/13/24Team MemberRelationshipSpecialtyStart DateEnd Annette Block MD [address] [place] [address] PCP - GeneralInternal Medicine11/16/22 Jevon Last MD [address] [place] [address] Referring PhysicianUrology01/28/24 Ron Hartley, OD [facility] [place] [address] Referring PhysicianOptometry02/13/24 Mark Anthony Drake MD [address] [place] [address] Urology01/15/23 [facility]02/13/24Te MemberRelationshipSpecialtyStart DateEnd Annette Block MD [address] [place] [address] PCP - GeneralInternal Medicine11/16/22 Yudy Gupta, SHEET METAL LAYOUT WORKER [address] [address] PCP - ACO Reach07/31/24 Jevon Last MD [address] [place] [address] Referring PhysicianUrology01/28/24 Ron Hartley, OD [facility] [place] [address] Referring PhysicianOptometry02/13/24 Mark Anthony Drake MD [address] [place] [address] Urology01/15/23 [facility]02/13/24Team MemberRelationshipSpecialtyStart [facility] Annette Block MD [address] [place] [address] PCP - GeneralInternal Medicine11/16/22 Yudy Gupta, SHEET METAL LAYOUT WORKER [address] [place] [address] PCP - ACO Reach07/31/24 Jevon Last MD [address] [place] [address] Referring PhysicianUrology01/28/24 Ron Hartley, OD [address] [place] [address] Referring PhysicianOptometry02/13/24 Mark Anthony Drake MD [address] [place] [address] Urology01/15/23 [facility]02/13/24Team MemberRelationshipSpecialtyStart [facility] Annette Block MD [address] [place] [address] PCP - GeneralInternal Medicine11/16/22 Yudy Gupta SHEET METAL LAYOUT WORKER [address] [place] [address] PCP - ACO Reach07/31/24 Jevon Last MD [address] [place] [address] Referring PhysicianUrology01/28/24 Ron Hartley, OD [address] [place] [address] Referring PhysicianOptometry02/13/24 Mark Anthony Drake MD [address] [place] [address] Urology01/15/23 [facility]02/13/24Team MemberRelationshipSpecialtyStart DateEnd Date Annette Block MD [address] [place] [address] PCP - GeneralInternal Medicine11/16/22 Yudy Gupta, SHEET METAL LAYOUT WORKER [address] [place] [address] PCP - ACO Reach07/31/24 Jevon Last MD [address] [place] [address] Referring PhysicianUrology01/28/24 Ron Hartley, OD [address] [place] [address] Referring PhysicianOptometry02/13/24 Mark Anthony Drake MD [address] [place] [address] Urology01/15/23 [facility] Cardiology02/13/24Team MemberRelationshipSpecialtyStart DateEnd Date Annette Block MD [address] [place] [address] PCP - GeneralInternal Medicine02/21/18Team MemberRelationshipSpecialtyStart Date End Date Annette Block MD [address] [place] [address] PCP - GeneralInternal Medicine02/21/18Team MemberRelationshipSpecialtyStart Date End Date Annette Block MD [address] [place] [address] PCP - GeneralInternal Medicine02/21/18Team MemberRelationshipSpecialtyStart Date End Date Annette Block MD [address] [address] PCP - GeneralInternal Medicine11/16/22 Yudy Gupta, SHEET METAL LAYOUT WORKER [address] [place] [address] PCP - ACO Reach07/31/24 Jevon Last MD [address] [place] [address] Referring PhysicianUrology01/28/24 Ron Hartley, OD [address] [place] [address] Referring PhysicianOptometry02/13/24 Mark Anthony Drake MD [address] [place] [address] Urology01/15/23 [facility]02/13/24Team MemberRelationshipSpecialtyStart DateEnd Date Annette Block MD [address] [place] [address] PCP - GeneralInternal Medicine11/16/22 Yudy Gupta, SHEET METAL LAYOUT WORKER [address] [place] [facility] PCP - ACO Reach07/31/24 Jevon Last MD [address] [place] [address] Referring PhysicianUrology01/28/24 Ron Hartley, OD [address] [place] [address] Referring PhysicianOptometry02/13/24 Mark Anthony Drake MD [address] [place] [address] Urology01/15/23 [facility]02/13/24Team MemberRelationshipSpecialtyStart DatePenn State Health Rehabilitation HospitalAnnette MD [address] [place] [address] PCP - GeneralInternal Medicine11/16/22 Yudy Gupta SHEET METAL LAYOUT WORKER [address] [place] [id number] PCP - ACO Reach07/31/24 Jevon Last MD [address] [place] [address] Referring PhysicianUrology01/28/24 Ron Hartley, OD [address] [place] [address] Referring PhysicianOptometry02/13/24 Mark Anthony Drake MD [address] [place] [address] Urology01/15/23 [facility]02/13/24Team MemberRelationshipSpecialtyStart DateNorth [facility] Annette Block MD [address] [place] [address] PCP - GeneralInternal Medicine11/16/22 Yudy Gupta SHEET METAL LAYOUT WORKER [address] [place] [address] PCP - ACO Reach07/31/24 Jevon Last MD [address] [place] [address] Referring PhysicianUrology01/28/24 Ron Hartley, OD [address] [place] [address] Referring PhysicianOptometry02/13/24 Mark Anthony Drake MD [address] [place] [address] Urology01/15/23 [facility]02/13/24Team MemberRelationshipSpecialtyStart DateEnd Annette Block MD [address] [place] [address] PCP - GeneralInternal Medicine11/16/22 Yudy Gupta NP [address] [place] [address] PCP - ACO Reach07/31/24 Jevon Last MD [address] [place] [address] Referring PhysicianUrology01/28/24 Ron Hartley, OD [address] [place] [address] Referring PhysicianOptometry02/13/24 Mark Anthony Drake MD [address] [place] [address] Urology01/15/23 [facility]02/13/24Team MemberRelationshipSpecialtyStart DatePark[facility] Annette Block MD [address] [place] [address] PCP - GeneralInternal Medicine11/16/22 Yudy Gupta SHEET METAL LAYOUT WORKER [address] [place] [address] PCP - ACO Reach07/31/24 Jevon Last MD [address] [place] [address] Referring PhysicianUrology01/28/24 Ron Hartley, OD [facility] [place] [address] Referring PhysicianOptometry02/13/24 Mark Anthony Drake MD [address] [place] [address] Urology01/15/23 [facility]02/13/24Team MemberRelationshipSpecialtyStart DatePark[facility] Annette Block MD [address] [place] [address] PCP - GeneralInternal Medicine11/16/22 Yudy Gupta SHEET METAL LAYOUT WORKER [address] [place] [address] PCP - ACO Reach07/31/24 Jevon Last MD [address] [place] [address] Referring PhysicianUrology01/28/24 Ron Hartley, OD [address] [place] [address] Referring PhysicianOptometry02/13/24 Mark Anthony Drake MD [address] [place], [place] [address] Urology01/15/23 [facility]02/13/24Team MemberRelationshipSpecialtyStart DateEnd Date Annette Block MD [address] [place] [address] PCP - GeneralInternal Medicine11/16/22 Yudy Gupta SHEET METAL LAYOUT WORKER [address] [facility] [address] [place] [id number] PCP - ACO Reach07/31/24 Jevon Last MD [address] [place] [address] Referring PhysicianUrology01/28/24 Ron Hartley, OD [address] [place] [address] Referring PhysicianOptometry02/13/24 Mark Anthony Drake MD [address] [place], [place] [address] Urology01/15/23 [facility] Cardiology02/13/24Team MemberRelationshipSpecialtyStart DateEnd Date Annette Block MD [address] [place] [address] PCP - GeneralInternal Medicine11/16/22 Yudy Gupta, SHEET METAL LAYOUT WORKER [address] [place] [address] PCP - ACO Reach07/31/24 Jevon Last MD [address] [place] [address] Referring PhysicianUrology01/28/24 Ron Hartley, OD [facility] [place] [address] Referring PhysicianOptometry02/13/24 Mark Anthony Drake MD [address] [place] [address] Urology01/15/23 [facility]02/13/24Team MemberRelationshipSpecialtyStart DateEnd Date Annette Block MD [address] [facility] [address] [place] [address] PCP - GeneralInternal Medicine02/21/18 Team Status: Inactive Member Role Status Dates Annette Block MD Primary Care Provider Active St art: March 03, 2025 End: March 03, 2025DaChana Brunner ProviderActiveStart: March 03, 2025 End: March 03, 2025 Team Status: Inactive Member Role Status Dates Annette Block MD Primary Care Provider Active St art: March 04, 2025 End: March 04, 2025Chana Gardner ProviderActiveStart: March 04, 2025 End: March 04, 2025Team MemberRelationshipSpecialtyStart DateEnd Date Annette Block MD [address] [place] [address] PCP - GeneralInternal Medicine11/16/22 Yudy Gupta, SHEET METAL LAYOUT WORKER [address] [place] [address] PCP - ACO Reach07/31/24 Jevon Last MD [address] [place] [address] Referring PhysicianUrology01/28/24 Ron Hartley, OD [address] [place], [place] [address] Referring PhysicianOptometry02/13/24 Mark Anthony Drake MD [address] [place] [address] Urology01/15/23 [facility]02/13/24 Goals (unrecognized section and content) Goals may [...] BE BASED ON THE PRIMARY CLINICAL RECORDS. [employer] provides no warranty or guarantee of the accuracy or completeness of information in this document.
--- OUTSIDE RECORDS SUMMARY | 2025-04-26 07:03 | XMS_ITS | Clinical Summary ---
Author Organization [facility] Address [address] [place] [address] Phone Care Team Providers Care Music Composer Name Role Phone Dominic Block MD Primary Care Provider Social History Tobacco UseTypesPacks/DayYears UsedDateSmoking Tobacco: Never AssessedSex and Gender InformationValueDate RecordedSex Assigned at BirthNot on fileLegal Sex Male05/19/2022 4:15 AM ESTGender IdentityNot on fileSexual OrientationNot on file Plan of Treatment Not on file Care Teams Team MemberRelationshipSpecialtyStart DateEnd Date Dominic Block MD [address] [place] [address] PCP - General10/24/20
--- OUTSIDE RECORDS SUMMARY | 2025-04-26 07:03 | XMS_ITS | Clinical Summary ---
Author Organization [facility] Healthcare Address [address] [place] [address] Care Team Providers Care Automobile Body Repairer Name Role Phone Dominic Block MD Primary Care Provider [phone] Jevon Last MD Unavailable Unavailable Ron Hartley OD Unavailable [phone] Yudy Gupta SET UP PERSON Unavailable [phone] Allergies No known active allergies Medications MedicationSigDispense QuantityRefillsLast FilledStart DateEnd DateStatus polyethylene glycol, PEG, 3350 (MiraLax) 17 GM/SCOOP powder Take 17 g by mouth Daily as needed.Active zolpidem (Ambien) 5 MG tablet Take 5 mg by mouth as needed at bedtime.Active ALPRAZolam (Xanax) 0.5 MG tablet Take 0.5 mg by mouth 2 (two) times a day as needed for anxiety.Active atorvastatin (Lipitor) 80 MG tablet Take 80 mg by mouth at bedtime.Active cetirizine (ZyrTEC ALLERGY) 10 MG tablet Take 10 mg by mouth in the morning.Active docusate sodium (Colace) 100 MG capsule Take 1 capsule by mouth in the morning and 1 capsule before bedtime.Active metoprolol succinate XL (Toprol XL) 25 MG 24 hr tablet Take 25 mg by mouth in the morning.Active acetaminophen (Tylenol Extra Strength) 500 MG tablet every 6 (six) hours.Active aspirin 81 MG EC tablet Take 81 mg by mouth in the morning.Active omeprazole (PriLOSEC) [address] capsule Indications:Gastroesophageal reflux disease without esophagitisTAKE 1 CAPSULE BY MOUTH EVERY DAY 90 capsule 4Active semaglutide (Ozempic, 1 MG/DOSE,) 4 MG/3ML solution pen-injector Indications:Controlled type 2 diabetes mellitus with complication, with long- term current use of insulin ([facility]),BMI 32.0-32.9,adultInject 1 mg under the skin 1 (one) time per week 3 mL 1105Active sildenafil (Viagra) 100 MG tablet Indications:Erectile dysfunction, unspecified erectile dysfunction typeTAKE 1 TABLET BY MOUTH EVERY DAY NEEDED FOR ERECTILE DYSFUNCTION FOR UP TO 30 DOSES. 30 tablet 5Active diclofenac (Voltaren) 75 MG EC tablet Indications:Primary generalized (osteo)arthritisTAKE 1 TABLET BY MOUTH WITH FOOD OR MILK TWICE DAILY 180 tablet 5Active Cholecalciferol (Vitamin D) 50 MCG (1999 UT) capsule Indications:Vitamin D deficiencyTake 2 capsules (100 mcg) by mouth Daily 5Active Active Problems ProblemNoted DateDiagnosed DateAllergic iijravif21/29/2023oronary artery disease involving [place] coronary artery of [place] heart without angina pectoris 11/19/2022astroesophageal reflux disease without yfsmwzicsww64/29/2023 Generalized anxiety swlaxcmw94/29/2023ure qvvsmfxybmxudfhbcxun80/29/2023rimary kdmfwizc38/29/2023Osteopenia of multiple sites11/19/20220112Yaggdckmgbi26/29/2023 Primary osteoarthritis involving multiple rwgyxs4411/19/2022Spondylolisthesis of lumbar qhirgg3711/19/2022Vitamin D okdhjijvnc44/29/2023Factor V Leiden ([facility]) 05/25/2022History of DVT (deep vein thrombosis)05/25/2022History of malignant neoplasm of mibmibsd85/20/2021 Resolved Problems ProblemNoted DateDiagnosed DateResolved DateBackground fodljkvjlks05/29/2023 01/18/2023hronic idiopathic jchsuocsm72rostate cancer Encounters DateTypeDepartmentCare LqgmFvhdcotalxb91/04/2025 4:30 PM EDTTreatment [facility] [address] [place] [address] Mary Coffey, PT Peroneal tendonitis, right (Primary Dx)5Bamboo flowsheet [facility] [address] [place] [address] Mary Coffey, PT 02/25/20252723Xkegxb91/02/2025 9:15 AM EDTOffice Visit [facility] [address] [place] [address] Yudy Gupta NP Pure hypercholesterolemia (Primary Dx); Prediabetes; Coronary artery disease involving [place] coronary artery of [place] heart without angina pectoris ; Generalized anxiety disorder ; Primary insomnia; Vitamin D deficiency; Osteopenia of multiple sites; Medicare annual wellness visit, subsequent; ACP (advance care planning)02/23/20255797Qzytaf12/30/2025linisync Result Encounter [facility] External Department Unsolicited Dominic Block MD 02/17/2025 5:00 PM EDTTreatment [facility] [address] [place] [address] Mary Coffey, PT Peroneal tendonitis, right (Primary Dx)02/17/2025amboo flowsheet [facility] [address] [place] [address] Mayr Coffey, PT 02/17/20255399Wmwcin69/21/2025 7:00 AM EDTTreatment [facility] [address] [place] [address] Mary Coffey, PT Peroneal tendonitis, right (Primary Dx)5Bamboo flowsheet [facility] [address] [place] [address] Mary Coffey, PT 02/11/20254801Szrqfy34/19/2025 7:00 AM EDTTreatment [facility] [address] [place] [address] Mary Coffey, PT Peroneal tendonitis, right (Primary Dx)02/09/2025amboo flowsheet [facility] [address] [place] [address] Mary Coffey, PT 02/09/20250952Ysdths01/16/2025linisync Result Encounter [facility] External Department Unsolicited Provider, Generic External Data 02/04/2025 7:00 AM EDTTreatment [facility] [address] [place] [address] Mary Coffey, PT Peroneal tendonitis, right (Primary Dx)02/04/2025amboo flowsheet [facility] [address] [place] [address] Mary Coffey, PT 02/04/20252121Hpnwgg26/12/2025Plan of Care Documentation [facility] [address] [place] [address] 02/01/2025 6:00 PM EDTEvaluation [facility] [address] [place] [address] Mary Coffey, PT Peroneal tendonitis, right (Primary Dx)02/01/2025amboo flowsheet [facility] [address] [place] [address] Mary Coffey, PT 02/01/20254180Ctbity65/10/2025Travelfrom Last 3 Months Immunizations ImmunizationAdministration DatesNext DueInfluenza, High Dose Seasonal, Preservative Free04/04/2025Influenza, Seasonal, Quadrivalent, Adjuvanted 04/14/2023,04/14/2022,04/02/2021Influenza, injectable, quadrivalent, preservative free03/22/2020,05/25/2019,03/17/2018Influenza, seasonal, injectable, preservative free03/24/2018,05/19/2016Influenza, trivalent, tpieydfvpu32/16/2024Moderna SARS-CoV-2 Qajjlwqexch42/24/2021,08/18/2020 Pneumococcal Polysaccharide MYPN0014SV, recombinant, protein subunit RSVpreF, adjuvant reconstitu, 120mcg/0.5mL, PF (Arexvy)05/26/20231747ZVWE-TAX-5 (COVID-19) vaccine, mRNA, spike protein, LNP, PF, [place]-sucrose, 30 mcg/0.3 mL 04/08/2024,04/14/20239596KSRW-HsY-0, Fckibpgfezq66/05/2021,09/14/2020,08/18/2020Tdap 02/03/2018Zoster, Cmnkiaknxgc66/12/2021,04/02/2021Zoster, live01/02/2017 Family History Medical HistoryRelationNameCommentsCancerBrother 1BobHeart diseaseBrother 2Bill Heart diseaseBrother 3TomHypertensionBrother 3TomHeart diseaseFatherStrokeFather CancerMotherMotherMuscular dystrophySonRelationNameStatusCommentsBrother 1Bob Brother 2BillBrother 3TomFatherDeceasedMotherMotherDeceasedSon Social History Tobacco UseTypesPacks/DayYears UsedDateSmoking Tobacco: NeverSmokeless Tobacco: NeverAlcohol UseStandard Drinks/WeekCommentsYes1 (1 standard drink = 0.6 oz pure alcohol)Caffeine: 2 cups dailyPHQ-2AnswerDate RecordedPatient Health Questionnaire-2 Wksku976Sex and Gender InformationValueDate RecordedSex Assigned at BirthNot on fileLegal RuaWhbz9209/05/2022 7:06 PM EDTGender Identity Not on fileSexual OrientationNot on fileOccupationIndustryJob Start DateJob End Datebuild custom race enginesNot on fileNot on fileNot on file Last Filed Vital Signs Vital SignReadingTime TakenCommentsBlood Vxuqoahb872/7209 9:12 AM EDT Nadqj1514/07/2024 9:12 AM NPCWaczfjubsxd63.3 ??C (97.4 ??F)11/20/2024 5:20 PM EDTRespiratory Rate--Oxygen Nbybbiuzqc78%02/23/2025 9:12 AM EDTInhaled Oxygen Concentration--Ymxosz01.8 kg (220 lb)02/23/2025 9:12 AM AWSGhmbys303.7 cm (5' 8 )02/23/2025 9:12 AM EDTBody Mass Index33.45002/23/2025 9:12 AM EDT Plan of Treatment DateTypeDepartmentCare Team (Latest Contact Info)Mqmxbzqgxbg51/28/2026 8:00 AM ESTOffice Visit [facility] [address] [place] [address] Jr. Eliezer Cardenas, DO [address] [place] [address] 08/25/2025 9:15 AM ESTOffice Visit [facility] [address] [place] [address] Health MaintenanceDue DateLast DoneCommentsCT Kgvurudmgtnw1955FIT-DNA 1955FIT1955FOBT1955 9410Yfvjraamxcdyz1955DTaP/Tdap/Td Vaccines (2 - Td or Tdap)Pneumococcal Vaccine: 65+ Years (2 of 2 - PCV)/1Diabetes: Hemoglobin A1C10/19/105174/, 01/19/2022, 01/16/2021, Additional history existsDiabetes: Urine Protein Umrztsfwp37/06/982580/11/2023, 07/22/2022, 3COVID-19 Vaccine ( season), 04/14/2023, 04/15/2021, Additional history existsDiabetes: Retinopathy Zierdlthr80/12/2023, 2019Medicare Annual Wellness (AWV)609/07/2024, 01/23/20233001Prwfomyxvyk18/23/2027 04/15/2017Colorectal Cancer Audtzyixk45/23/2027Influenza VaccineCompleted 04/04/2025, 04/08/2024, 04/14/2023, Additional history existsHIB VaccinesAged OutNo longer eligible based on patient's age to complete this topicHPV Vaccines Aged OutNo longer eligible based on patient's age to complete this topic Hepatitis A VaccinesAged OutNo longer eligible based on patient's age to complete this topicHepatitis B VaccinesAged OutNo longer eligible based on patient's age to complete this topicIPV VaccinesAged OutNo longer eligible based on patient's age to complete this topicMeningococcal B VaccineAged OutNo longer eligible based on patient's age to complete this topicMeningococcal VaccineAged OutNo longer eligible based on patient's age to complete this topicRotavirus VaccinesAged OutNo longer eligible based on patient's age to complete this topic Procedures Procedure NamePriorityDate/TimeAssociated DiagnosisCommentsTBH VITAMIN D 25 [place] Yfehjcq6602/20/2025 7:38 AM EDT ALL LIPID PROFILE (FASTING)Jpnucdd1202/20/2025 7:38 AM EDT [facility] CMP (CMP) (FOR REMOTE [facility] USE)Pjfuvdk1502/20/2025 7:38 AM EDT ALL CBC WITH AUTO RTQQUqbcwjv51/30/2025 7:38 AM EDT MHPT PSA, TMKMQISBXBRfyoyqz78/16/2025 7:45 AM EDT ALBUMIN, URINE, BZVZSDFsqxyej96/06/2024 8:38 AM ESTHEMOGLOBIN X2OMevajak 07/21/2022 COLOR FUNDUS PHOTOGRAPHY - OU - BOTH BVGIQxrnioi79/16/2019 12:00 PM EST PLUJKYETVKXZkcyxil59/23/2017 12:00 PM EDT from Last 3 Months or Most Recently Relevant to Health Maintenance Results * TBH VITAMIN D 25 [place] (02/20/2025 7:38 AM EDT)ComponentValueRef RangeTest Method Analysis TimePerformed AtPathologist SignatureVITAMIN D29.4ng/mLTBHComment: <20 ng/mL Vit D deficient 20-<30 ng/mL Vit D insufficient 30-100 ng/mL ??Vit D sufficient >100 ng/mL Potential Toxicity Specimen (Source)Anatomical Location / LateralityCollection Method / Volume Collection TimeReceived Time02/20/2025 7:38 AM EDT02/20/2025 7:39 AM EDT Narrative [facility]IN[facility] - 02/20/2025 9:59 AM EDT Authorizing ProviderResult TypeResult StatusRobert L Alpha MDCLINISYNCFinal ResultPerforming OrganizationAddressCity/State/ZIP CodePhone Number CLINISYNC [facility] * (ABNORMAL) [facility] CMP (CMP) (FOR REMOTE [facility] USE) (02/20/2025 7:38 AM EDT) ComponentValueRef RangeTest MethodAnalysis TimePerformed AtPathologist SvmspmloaJZIYRF439684 - 145 mmol/LTBHPOTASSIUM4.33.5 - 5.1 mmol/LTBHCHLORIDE 94116 - 107 mmol/LTBHCARBON PANTRXJ97.9(H)21.0 - 32.0 mmol/LTBHANION GAP10.4 AWZZNJFLNW101(H)74 - 106 mg/dLTBHBLOOD UREA NQCIMMGH19.07.0 - 18.0 mg/dLTBH CREATININE0.720.70 - 1.30 mg/dLTBHTBH EGFR-AF [place]>60>=60 mL/min/1.73m 2 TBHTBH EGFR-NON AF [place]>60>=60 mL/min/1.73m 2TBHBUN CREATININE RATIO19.4 TBHCALCIUM8.88.5 - 10.1 mg/dLTBHBILIRUBIN TOTAL0.50.2 - 1.0 mg/dLTBHASPARTATE AMINO LQZLHOUICZQ4624 - 37 U/LTBHALANINE JVFAYGVFPTDKAJPX6967 - 63 U/LTBH ALKALINE ANAIMMHDRED9438 - 116 U/LTBHTOTAL PROTEIN7.06.4 - 8.2 g/dLTBHALBUMIN LEVEL3.73.4 - 5.0 g/dLTBHGLOBULIN3.3g/dLTBHALBUMIN GLOBULIN RATIO1.1TBH Specimen (Source)Anatomical Location / LateralityCollection Method / Volume Collection TimeReceived Time02/20/2025 7:38 AM EDT02/20/2025 7:39 AM EDT Narrative CLINISYNC - 02/20/2025 9:08 AM EDT Authorizing ProviderResult TypeResult [facility] HospitalLINISYNCUnc [facility] ResultPerforming OrganizationAddressCity/State/ZIP CodePhone Number [facility]INCHRISTIANACARE TB * ALL LIPID PROFILE (FASTING) (02/20/2025 7:38 AM EDT)ComponentValueRef Range Test MethodAnalysis TimePerformed AtPathologist KbjdtfasrBXOMDGLXOUGLQ05<=150 mg/kXZGBWLXIQYZJFAU764<=200 mg/dLTBHHDL IIOBISNYNHG2539 - 60 mg/dLTBHComment: > or =60 mg/dl - LOW CARDIOVASCULAR RISK <40 mg/dl - HIGH CARDIOVASCULAR RISK LDL CHOLESTEROL BBXIHGZSDA68.8mg/dLTBHComment: <100 mg/dl OPTIMAL 100-129 mg/dl NEAR OR ABOVE OPTIMAL 130-159 mg/dl BORDERLINE HIGH 160-189 mg/dl HIGH >190 mg/dl VERY HIGH VLDL PZNCSCZLKRL41.2mg/dLTBHCHOL HDL RATIO3.0TBHComment: 3.3 - 4.4 ?? LOW RISK 4.4 - 7.1 ?? AVERAGE RISK 7.1 - 11.0 ??MODERATE RISK >11.0 HIGH RISK Specimen (Source)Anatomical Location / LateralityCollection Method / Volume Collection TimeReceived Time02/20/2025 7:38 AM EDT02/20/2025 7:39 AM EDT Narrative CLINISYNC - 02/20/2025 9:08 AM EDT Authorizing ProviderResult TypeResult [facility] HospitalISYNCUn[facility] ResultPerforming OrganizationAddSurgical Specialty Hospital-Coordinated Hlthty/State/ZIP CodePhone Number [facility] * (ABNORMAL) ALL CBC WITH AUTO DIFF (02/20/2025 7:38 AM EDT)ComponentValueRef RangeTest MethodAnalysis TimePerformed AtPathologist SignatureTBH WBC7.14.0 - 11.0 10 3/uLTBHTBH RBC4.50(L)4.70 - 6.10 10 6/uLTBHTBH HGB14.514.0 - 18.0 g/dL TBHTBH HCT42.642.0 - 54.0 %TBHTBH MCV94.7(H)80.0 - 94.0 fLTBHTBH MCH32.225.9 - 34.0 pgTBHTBH MCHC34.029.9 - 35.2 g/dLTBHTBH RDW12.611.0 - 15.0 %TBHTBH WNT081 150 - 450 10 3/uLTBHTBH MPV8.5(L)9.5 - 13.5 fLTBHNEUTROPHILS PERCENT AUTO62.2 43.0 - 75.0 %TBHLYMPHOCYTES PERCENT AUTO22.820.5 - 60.0 %TBHMONOCYTES PERCENT AUTO10.81.7 - 12.0 %TBHTBH EO %3.40.9 - 7.0 %TBHBASOPHILS PERCENT AUTO0.40.2 - 2.0 %TBHIMMATURE GRANULOCYTES PCT AUTO0.40.0 - 0.5 %TBHNEUTROPHILS ABSOLUTE AUTO4.41.4 - 6.5 10 3/uLTBHLYMPHOCYTES ABSOLUTE AUTO1.61.2 - 3.8 10 3/uLTBH MONOCYTES ABSOLUTE AUTO0.80.3 - 0.8 10 3/uLTBHTBH EO #0.20.0 - 0.7 10 3/uLTBH BASOPHILS ABSOLUTE AUTO0.00.0 - 0.1 10 3/uLTBHIMMATURE GRANULOCYTES ABS AUTO 0.030.00 - 0.03 10 3/uLTBHSpecimen (Source)Anatomical Location / Laterality Collection Method / VolumeCollection TimeReceived Time02/20/2025 7:38 AM EDT 02/20/2025 7:39 AM EDT Narrative CLINISYNC - 02/20/2025 8:08 AM EDT Authorizing ProviderResult TypeResult StatusRobert L Alpha MDCLINISYNCFinal ResultPerforming OrganizationAddressCity/State/ZIP CodePhone Number [facility] * MHPT PSA, DIAGNOSTIC (02/06/2025 7:45 AM EDT)ComponentValueRef RangeTest MethodAnalysis TimePerformed AtPathologist SignaturePROSTATE SPECIFIC ANTIGEN DX1.39<=4.00 ng/mLTBHSpecimen (Source)Anatomical Location / Laterality Collection Method / VolumeCollection TimeReceived Time02/06/2025 7:45 AM EDT 02/06/2025 7:47 AM EDT Narrative CLINISYNC - 02/06/2025 9:42 AM EDT Authorizing ProviderResult TypeResult StatusGeneric External Data Provider CLINISYNCFinal ResultPerforming OrganizationAddressCity/State/ZIP CodePhone Number CLINISYNC [facility] * Albumin, urine, random (07/30/2023 8:38 AM EST)Specimen (Source)Anatomical Location / LateralityCollection Method / VolumeCollection TimeReceived Time UrineUrine specimen obtained by clean catch procedure / Unknown Narrative Authorizing ProviderResult TypeResult StatusCrystal MEZA URINE ORDERABLESFinal Result * Hemoglobin A1c (07/21/2022)ComponentValueRef RangeTest MethodAnalysis Time Performed AtPathologist SignatureGLYCOHEMOGLOBIN A1C6.04.5 - 6.2[facility]GACY EXTERNAL LABADA RECOMMENDATIONSEE BELOWNOMS LEGACY EXTERNAL LABComment:ADA RECOMMENDED LIMIT 4.0 - 6.0 ADA THERAPEUTIC TARGET < 7.0 ACTION SUGGESTED > 7.0EST AVG ACMHYKJ785SOBS LEGACY EXTERNAL LABPERFORMING LAB:see noteNOMS LEGACY EXTERNAL LABComment:[address] [facility] - [address] [place] [address] ,[address]. [phone] Specimen (Source)Anatomical Location / LateralityCollection Method / Volume Collection TimeReceived Time07/21/2022 Narrative Authorizing ProviderResult TypeResult StatusDominic ZELAYA BLOOD ORDERABLES Final ResultPerforming OrganizationAddressCity/State/ZIP CodePhone Number [facility] * Color Fundus Photography - OU - Both Eyes (2019 12:00 PM EST)Anatomical RegionLateralityModalityHeadFundus PhotographySpecimen (Source)Anatomical Location / LateralityCollection Method / VolumeCollection TimeReceived Time 2019 12:00 PM EST Narrative 07/21/2020 12:00 PM EST PERFORMED AT [facility] LOCATION:[id number] See scanned image Procedure Note CONVERSION, GENERIC - 11/07/2022 PERFORMED AT [facility] LOCATION:[id number] See scanned image Authorizing ProviderResult TypeResult Justice Block MDOPHTH PHOTOGRAPHY Final Result * Colonoscopy (04/15/2017 12:00 PM EDT)Anatomical RegionLateralityModality EndoscopySpecimen (Source)Anatomical Location / LateralityCollection Method / VolumeCollection TimeReceived Time04/15/2017 12:00 PM EDT Narrative 04/16/2017 12:00 PM EDT PERFORMED AT [facility] LOCATION:[id number] internal hemorrhoids- Normal Procedure Note CONVERSION, GENERIC - 11/08/2022 PERFORMED AT [facility] LOCATION:[id number] internal hemorrhoids- Normal Authorizing ProviderResult TypeResult Justice Block MDENDOSCOPY PROCEDURE ORDERABLESFinal Result from Last 3 Months or Most Recently Relevant to Health Maintenance Insurance Care Teams Team MemberRelationshipSpecialtyStart DateEnd [facility] Dominic Block MD [address] [place] [address] PCP - GeneralInternal Medicine11/16/22 Yudy Gupta, SET UP PERSON [address] [place], [place] [id number] PCP - ACO Reach07/31/24 Jevon Last MD [address] [place] [address] Referring PhysicianUrology01/28/24 Ron Hartley, VARUN [address] [place] [address] Referring PhysicianOptometry02/13/24 Mark Anthony Drake MD [address] [place] [address] Urology01/15/23 [facility]02/13/24
--- OUTSIDE RECORDS SUMMARY | 2025-04-26 07:03 | XMS_ITS | Encounter Summary ---
Author Organization [facility] Address [address] [place] [address] Care Team Providers Care Public Speaking Coach Name Role Phone Annette Shah MD Primary Care Provider [phone] Jevon Last MD Unavailable Unavailable Ron Hartley OD Unavailable [phone] Yudy Gupta INCIDENT RESPONSE CONSULTANT Unavailable [phone] Encounter Details DateTypeDepartmentCare Team (Latest Contact Info)Kymorbqtwlj74/20/2023Clinisync Result Encounter [facility] External Department Unsolicited Provider, Generic External Data Social History Tobacco UseTypesPacks/DayYears UsedDateSmoking Tobacco: NeverSmokeless Tobacco: NeverAlcohol UseStandard Drinks/WeekCommentsYes1 (1 standard drink = 0.6 oz pure alcohol)Caffeine: 2 cups dailyPHQ-2AnswerDate RecordedPatient Health Questionnaire-2 Qofyw704Sex and Gender InformationValueDate RecordedSex Assigned at BirthNot on fileLegal UedXljg7809/05/2022 7:06 PM EDTGender Identity Not on fileSexual [...] 9:00 AM Regina Velazco MAPatient Health Questionnaire-2 Saccl195 9:00 AM Regina Velazco MA documented as of this encounter Plan of Treatment DateTypeDepartmentCare Team (Latest Contact Info)Jvomatknlht77/28/2026 8:00 AM ESTOffice Visit [facility] [address] [place] [address] Jr. Eliezer Cardenas, DO [address] [facility] [address] [place] [address] 08/25/2025 9:15 AM ESTOffice Visit [facility] [address] [place] [address] documented as of this encounter Procedures Procedure NamePriorityDate/TimeAssociated DiagnosisCommentsCA ECHO DOPPLER JXVTUKZA69/20/2023 4:12 PM EST documented in this encounter Results * CA ECHO DOPPLER COMPLETE (06/12/2023 4:12 PM EST)Anatomical RegionLaterality ModalityOtherSpecimen (Source)Anatomical Location / LateralityCollection Method / VolumeCollection TimeReceived Time06/12/2023 4:12 PM EST Narrative 06/12/2023 4:14 PM EST [facility] ?[address] ? [place] [address] ? Cardiology Report ? Signed ? Patient: GILBERTO PARRA ?MR#: [id number] ?? : 1955 ?Acct:[id number] ?? Age/Sex: 68 / M ?ADM Date: 06/12/23 ?? Loc: CARD ? Attending Dr: Berry Root M.D. ? Ordering Physician: Berry Root M.D. ?? Date of Service: 06/12/23 ?? Procedure(s): CA echo doppler complete ?? Accession Number(s): [id number] ? cc: Berry Root M.D.; ANNETTE SHAH ? Patient Name: ? GILBERTO PARRA ? MR#: [id number] ? : 1955 ? Exam Date: 06/12/2023 ?? Ordering Doctor: DR BERRY ROOT M.D. ? ECHOCARDIOGRAM REPORT ? PROCEDURE: ? CA ECHO DOPPLER COMPLETE ? INDICATIONS: ? Mitral valve regurgitation ? COMPARISON: ? None. ? DESCRIPTION: ? COMPLETE ECHOCARDIOGRAM Real-time transthoracic ?? echocardiography with 2D, M-mode, spectral and color flow Doppler performed. ? QUALITY: ? Technical quality was good. ??67 , 215#, BSA 2.09 m2 ?? LEFT VENTRICLE: ? Normal chamber size. ??Mildly increased left ventricular ?? wall thickness. ? LV EF: ? Global left ventricular systolic function is hyperdynamic; visually ?? estimated ejection fraction is 65 to 70%. ??No significant wall motion ?? abnormalities. ?? DIASTOLIC: ? Normal diastolic function. ?? ATRIAL SEPTUM: ? Visually appears intact. ?? LEFT ATRIUM: ? Normal chamber size. ?? RIGHT ATRIUM: ? Normal chamber size. ?? RIGHT VENTRICLE: ? Normal chamber size. Normal right ventricular systolic ?? function. ? TRICUSPID VALVE: ? Normal mobility and thickness. No stenosis with trivial ?? regurgitation. ? MITRAL VALVE: ? Mildly thickened with normal mobility. ?? No evidence of ?? mitral valve stenosis. ??There is no mitral annular calcification. No mitral ?? regurgitation. ? AORTIC VALVE: ? Normal aortic valve. No visible sclerosis. ??Normal leaflet ?? mobility. ??No evidence of aortic valve stenosis. Trivial aortic regurgitation. ? AORTIC ROOT: ? Normal diameter and appearance. ? PULMONIC VALVE: ? Normal thickness and mobility. No stenosis. No ?? regurgitation. ? PERICARDIUM: ? No evidence of pericardial effusion. ? IVC: ? Collapses with inspirations. IVC is normal in size. ? CONCLUSION: ? 1. Global left ventricular systolic function is hyperdynamic; visually ?? estimated ejection fraction is 65 to 70% ?? 2. Normal right ventricular size and systolic function ?? 3. Mild increased left ventricular wall thickness ?? 4. Normal diastolic function ?? 5. No significant valvular abnormalities ? Adult Echocardiography Procedure Report ?? Left Ventricle ?? LVEDD (3.7 - 5.6 cm): ? 4.75 cm ?? LVESD (2.2 - 4.0 cm): ? 3.22 cm ?? LVIVS thickness (0.6 - 1.2 cm): ? 1.27 cm ?? LVPW thickness (0.5 - 1.0 cm): ? 1.12 cm ?? e': ? 0.17 m/s ?? E - e': ? 3.63 ?? LVOT Max Gradient: ? 2.71 mm[Hg] ?? LVOT Area (cm2): ? 0.82 m/s ?? Peak Velocity (LVOT): ? 0.82 m/s ?? Mean Velocity (LVOT): ? 0.54 m/s ?? LVOT Diameter ? 2.73 cm ?? Left Atrium ?? LA Volume Index (2D A2C): ? 27.66 ml/m2 ?? Left Atrium Systolic Dimension: ? 3.81 cm ?? Mitral Valve ?? MV E to A Ratio: ? 1, 1.02 ?? Mitral Valve A-Wave Peak Velocity: ? 0.60 m/s ?? Mitral Valve E-Wave Peak Velocity: ? 0.61 m/s ?? Right Ventricle ?? Aorta ?? AO Root Diam: ? 3.68 cm ?? Ascending Ao Diam: ? 3.61 cm ?? Aortic Valve ?? AoV Area (Peak Con): ? 3.89 cm2, 3.89 cm2 ?? AoV Area (VTI): ? 4.40 cm2, 4.40 cm2 ?? Peak Velocity(Antegrade Flow): ? 1.23 m/s ?? Peak Gradient(Antegrade Flow): ? 6.09 mm[Hg] ?? Mean Velocity(Antegrade Flow): ? 0.74 m/s ?? Mean Gradient(Antegrade Flow): ? 2.67 mm[Hg] ?? Velocity Time Integral: ? 22.04 cm ?? Tricuspid Valve ?? Pulmonic Valve ?? Peak Velocity: ? 1.21 m/s ?? Peak Gradient: ? 5.24 mm[Hg], 6.55 mm[Hg] ?? Right Atrium ?? Right Atrium Systolic Pressure: ? 27.28 ml, 27.28 ml ? Dictated by: Berry Root M.D. on 06/12/2023 at 16:08 ? Approved by: Berry Root M.D. on 06/12/2023 at 16:12 ? Dictated By: ?Berry Root M.D. ? Signed By: ?06/12/231613 ? DD/ 1612 ? TD/TT: ? Asbestos Remover: Procedure Note Radiology, Radiologist, - 06/13/2023 [place] [address] Cardiology Report Signed Patient: GILBERTO PARRA JMR#: [id number] : 1955ct:[id number] Age/Sex: 68 / MADM Date: 06/12/23 Loc: CARD Attending Dr: Berry Root M.D. Ordering Physician: Berry Root M.D. Date of Service: 06/12/23 Procedure(s): CA echo doppler complete Accession Number(s): [id number] cc: Berry Root M.D.; ANNETTE SHAH Patient Name: GILBERTO PARRA MR#: [id number] : 1955 Exam Date: 06/12/2023 Ordering Doctor: DR BERRY ROOT M.D. ECHOCARDIOGRAM REPORT PROCEDURE: CA ECHO DOPPLER COMPLETE INDICATIONS: Mitral valve regurgitation COMPARISON: None. DESCRIPTION: COMPLETE ECHOCARDIOGRAM Real-time transthoracic echocardiography with 2D, M-mode, spectral and color flow Dopplerperformed. QUALITY: Technical quality was good. 67 , 215#, BSA 2.09 m2 LEFT VENTRICLE: Normal chamber size. Mildly increased leftventricular wall thickness. LV EF: Global left ventricular systolic function is hyperdynamic;visually estimated ejection fraction is 65 to 70%. No significant wall motion abnormalities. DIASTOLIC: Normal diastolic function. ATRIAL SEPTUM: Visually appears intact. LEFT ATRIUM: Normal chamber size. RIGHT ATRIUM: Normal chamber size. RIGHT VENTRICLE: Normal chamber size. Normal right ventricularsystolic function. TRICUSPID VALVE: Normal mobility and thickness. No stenosis withtrivial regurgitation. MITRAL VALVE: Mildly thickened with normal mobility. No evidence of mitral valve stenosis. There is no mitral annular calcification. Nomitral regurgitation. AORTIC VALVE: Normal aortic valve. No visible sclerosis. Normalleaflet mobility. No evidence of aortic valve stenosis. Trivial aorticregurgitation. AORTIC ROOT: Normal diameter and appearance. PULMONIC [...] 27.28 ml, 27.28 ml Dictated by: Berry Root M.D. on 06/12/2023 at 16:08 Approved by: Berry Root M.D. on 06/12/2023 at 16:12 Dictated By: Berry Root M.D. Signed By:06/12/23 161 DD/ 161 TD/TT: Asbestos Remover: Authorizing ProviderResult TypeResult StatusGeneric External Data Provider CLINISYNC IMAGINGFinal Result documented in this encounter Visit Diagnoses Not on filedocumented in this encounter Care Teams Team MemberRelationshipSpecialtyStart DateEnd Annette Shah MD [address] [place] [phone] PCP - GeneralInternal Medicine11/16/22 Yudy Gupta INCIDENT RESPONSE CONSULTANT [address] [place] [address] [place] [address] PCP - ACO Reach07/31/24 Jevon Last MD [address] [place] [address] Referring PhysicianUrology01/28/24 Ron Hartley OD [address] [place] [address] Referring PhysicianOptometry02/13/24 Mark Anthony Drake MD [address] [place] [address] Urology01/15/23 [facility] Cardiology02/13/24documented as of this encounter
--- OUTSIDE RECORDS SUMMARY | 2025-04-26 07:03 | XMS_ITS | Encounter Summary ---
Author Organization [facility] Address [address] [place] [address] Care Team Providers Care Strike Out Machine Operator Name Role Phone Dominic Block MD Primary Care Provider [phone] Jevon Last MD Unavailable Unavailable Ron Hartley OD Unavailable [phone] Yudy Gupta GLAZIER SUPERVISOR Unavailable [phone] Encounter Details DateTypeDepartmentCare Team (Latest Contact Info)Lkdaigcmbhg31/31/2024Clinisync Result Encounter [facility] External Department Unsolicited Provider, Generic External Data Social History Tobacco UseTypesPacks/DayYears UsedDateSmoking Tobacco: NeverSmokeless Tobacco: NeverAlcohol UseStandard Drinks/WeekCommentsYes1 (1 standard drink = 0.6 oz pure alcohol)Caffeine: 2 cups dailyPHQ-2AnswerDate RecordedPatient Health Questionnaire-2 Gwsvd748Sex and Gender InformationValueDate RecordedSex Assigned at BirthNot on fileLegal DhsCvda2109/05/2022 7:06 PM EDTGender Identity Not on fileSexual [...] 9:00 AM Regina Velazco MAPatient Health Questionnaire-2 Nsmei238 9:00 AM Regina Velazco MA documented as of this encounter Plan of Treatment DateTypeDepartmentCare Team (Latest Contact Info)Ksybbsbmtpz94/28/2026 8:00 AM ESTOffice Visit [facility] [address] [place] [address] Jr. Eliezer Cardenas, [address] [facility] [address] [place] [address] 08/25/2025 9:15 AM ESTOffice Visit [facility] [address] [place] [address] documented as of this encounter Procedures Procedure NamePriorityDate/TimeAssociated DiagnosisCommentsMRI 3D POST AMZILRPCBA70/31/2024 12:16 PM EDT documented in this encounter Results * MRI 3D POST PROCESSING (11/22/2023 12:16 PM EDT)Anatomical RegionLaterality ModalityOtherSpecimen (Source)Anatomical Location / LateralityCollection Method / VolumeCollection TimeReceived Time11/22/2023 12:16 PM EDT Narrative 11/22/2023 3:22 PM EDT * * *Final Report* * * DATE OF EXAM: Nov 22 2023 12:16PM ?? QBM ?? 0280 ??- ??MRI 3D POST PROCESSING ??/ PROCEDURE REASON: Prostate cancer (HCC) ? [...] volume were obtained using a semi-automated software ([employer]). THREE-DIMENSIONAL IMAGIND imaging including complex volumetric analysis of the prostate was created on a dedicated stand-alone workstation ([employer])by the interpreting physician, with images reviewed and [...] Clinically significant cancer is highly likely (V.) Loans Officer: PSCB ?? Transcribe Date/Time: Nov 22 2023 ??1:34P Dictated by : ALEXIA MOY MD This examination was interpreted and the report reviewed and electronically signed by: LORENZO HEBERT MD on Nov 22 2023 ??3:20PM ??EST [id number]^AGFA_IDC^SI^ACN Procedure Note Radiology, Radiologist, - 11/22/2023 * * *Final Report* * * DATE OF EXAM: Nov 22 2023 12:16PM [facility] 0280 - MRI 3D POST PROCESSING [...] volume were obtained using a semi-automated software ([employer]). THREE-DIMENSIONAL IMAGIND imaging including complex volumetric analysis of the prostate was created on a dedicated stand-alone workstation ([employer])by the interpreting physician, with images reviewed and [...] of suspicion for clinically significant prostate cancer (Trenton score 3 + 4 or higher). PI-RADS v2.1 Assessment Categories: PI-RADS 1: Clinically significant cancer is highly unlikely PI-RADS 2: Clinically significant cancer is unlikely PI-RADS 3: Clinically significant cancer is equivocal PI-RADS 4: Clinically significant cancer is likely PI-RADS 5: Clinically significant cancer is highly likely (V.) Loans Officer: LIZETTE Transcribe Date/Time: Nov 22 2023 1:34P Dictated by : ALEXIA MOY MD This examination was interpreted and the report reviewed and electronically signed by: LORENZO HEBERT MD on Nov 22 2023 3:20PM EST [id number]^AGFA_IDC^SI^ACN Authorizing ProviderResult TypeResult StatusGeneric External Data Provider CLINISYNC IMAGINGFinal Result documented in this encounter Visit Diagnoses Not on filedocumented in this encounter Care Teams Team MemberRelationshipSpecialtyStart DateEnd Dominic Block MD [address] [place] [phone] PCP - GeneralInternal Medicine11/16/22 Yudy Gupta NP [address] [place] [address] PCP - ACO Reach07/31/24 Jevon Last MD [address] [place] [address] Referring PhysicianUrology01/28/24 Ron Hartley, OD [address] [place] [address] Referring PhysicianOptometry02/13/24 Mark Anthony Drake MD [address] [place] [address] Urology01/15/23 [facility]02/13/24documented as of this encounter
--- OUTSIDE RECORDS SUMMARY | 2025-04-26 07:03 | XMS_ITS | Clinical Summary ---
Author Organization [facility] Address [address] [place] [address] Care Team Providers Care Aquaculture Farm Manager Name Role Phone Dominic Block MD Primary Care Provider [phone] Allergies No known active allergies Medications MedicationSigDispense QuantityRefillsLast FilledStart DateEnd DateStatus ALPRAZolam (Xanax) 0.25 mg tablet Take 1 tablet by mouth in the morning.07/23/2019Active aspirin 81 mg EC tablet aspirin 81 mg tablet,delayed release TAKE 1 TABLET BY MOUTH EVERY DAYActive cetirizine (ZyrTEC) 10 mg tablet in the morning.04/15/2017Active diclofenac (Voltaren) 75 mg EC tablet Take 75 mg by mouth in the morning and at bedtime.04/16/2019Active omeprazole (PriLOSEC) [address] capsule Take 1 tablet by mouth in the morning.Active zolpidem (Ambien) 5 mg tablet Take 1 tablet by mouth if needed.07/23/2019Active semaglutide (Rybelsus) 7 mg tablet Take 7 mg by mouth once daily as directed.Active cholecalciferol, vitamin D3, 50 mcg (2,000 unit) capsule Take 1 capsule by mouth in the morning.Active semaglutide (Ozempic) 1 mg/dose (2 mg/1.5 mL) pen injector Inject 1 mg under the skin 1 (one) time per week.Active sildenafil (Viagra) 50 mg tablet Take 50 mg by mouth if needed each day for erectile dysfunction.Active metoprolol succinate XL (Toprol-XL) 25 mg 24 hr tablet Indications:Benign hypertensive heart disease without congestive heart failure TAKE 1 TABLET BY MOUTH EVERY DAY DIRECTED 90 tablet 5Active atorvastatin (Lipitor) 80 mg tablet Indications:Coronary artery disease due to lipid rich plaqueTAKE 1 TABLET BY MOUTH AT BEDTIME 90 tablet 5Active Active Problems ProblemNoted DateDiagnosed DateHistory of total right knee pzfqyhrpuqf84/02/2024 Postoperative anemia due to acute blood loss05/25/2024Screening for colorectal nzqwdy2005/25/2024Spinal stenosis of lumbar region with etamssgpzhfme21/02/2024 Essential (primary) evcacbxojuhe48Osteopenia11/19/2022 05/30/2023rimary osteoarthritis involving multiple qdommy27 Pure jgspmeonpjihazdgvpgc17/29/202312/07/2023Factor V Kmasxa7105/25/2022History of DVT (deep vein thrombosis)05/25/2022rostate pjyfwm4811/23/2021Hyperlipidemia 01/15/2021oronary xgvqdckxkaxlzmtq21/21/2021ackground hmuhpwnqojt58/16/2021 History of malignant neoplasm of ytkweuvn74/20/2021Artificial knee joint present 04/14/2020Morbid wgzpblc4001/11/2020Obesity, Class II, BMI 35-39.9107/22/2018Foot drop, left02/20/2018Peroneal nerve palsy, left02/20/20182911Izruyazjksbna49/30/2018 Vitamin D fnmtvdvehh54/17/2018Acquired doftotfpndlilzkvr10/21/2018Insomnia 01/02/2017Generalized anxiety amtpofrx55/22/2017Allergic ikxlyynl88/16/2017 Chronic idiopathic rtesxrfnp92/16/2017Gastroesophageal reflux wfofflh9207/09/2016 Fsabdlflwrf84/16/2017Primary lqnbcuwhvttgfd09/16/2017 Family History Medical HistoryRelationNameCommentsSick sinus syndromeFatherpremature CADOther RelationNameStatusCommentsFatherOther Social History Tobacco UseTypesPacks/DayYears UsedDateSmoking Tobacco: NeverSmokeless Tobacco: Never Tobacco Cessation:Counseling Given: Not Answered Alcohol UseStandard Drinks/WeekCommentsYes0 (1 standard drink = 0.6 oz pure alcohol)occassionalUT Safety & EnvironmentAnswerDate RecordedFear of Current or Ex-PartnerNot on file08/15/2023Emotionally AbusedNot on file08/15/2023hysically AbusedNot on file08/15/2023Sexually AbusedNot on file08/15/2023hysically or Sexually AbusedNot on file08/15/2023Sex and Gender InformationValueDate Recorded Sex Assigned at BirthNot on fileLegal VlwItfx0412/20/2021 11:53 PM EDTGender IdentityNot on fileSexual OrientationNot on file Last Filed Vital Signs Vital SignReadingTime TakenCommentsBlood Hdcuctds341/7005/25/2024 10:55 AM EST Buqnj334605/25/2024 10:55 AM NZEEjqibdnbkcy68.8 ??C (98.3 ??F)10/06/2021 8:27 AM EDTRespiratory Kudm381710/06/2021 8:25 AM EDTOxygen Gucewkdqyh91%05/25/2024 10:55 AM ESTInhaled Oxygen Concentration--Eozceu070 kg (223 lb)05/25/2024 10:55 AM EST Ceptfm801.7 cm (5' 8 )05/25/2024 10:55 AM ESTBody Mass Index33.9105/25/2024 10:55 AM EST Plan of Treatment DateTypeDepartmentCare Team (Latest Contact Info)Webjwtytbjg01/11/2025 9:00 AM ESTOffice Visit [facility] [place] [address] [place] [address] Berry Fisher MD [address] [facility] [place] [address] Health MaintenanceDue DateLast DoneCommentsCT Vfpkdfhivppy1955FIT-DNA 1955FIT1955FOBT1955Medicare Annual Wellness (AWV)1955 Bldbtwmztrwfi1955Diabetes: Retinopathy Zqwwesuze24/16/1965Depression Tvtgdsvrn45/16/1967Fall Risk Enaikyqjz18/16/2020Pneumococcal Vaccine: 50+ Years (2 of 2 - PCV)/iabetes: Hemoglobin A1C/ Diabetes: Urine Protein Tjgdlkjhg78/06/6369484COVID-19 Vaccine ( season), 04/14/2023, 04/15/2021, Additional history skhnogNmxxmevxjic35Colorectal Cancer Zbrnkzptu70/23/2027dult Umofhpn47Zoster ZzatblrvDayrsvulw87/12/2021, 04/02/2021, 01/02/2017Influenza ZqkyinmMfmcjstmv86/12/2025, 04/08/2024, 04/14/2023, Additional history existsHIB VaccinesAged OutNo longer eligible based on patient's age to complete this topicHPV VaccinesAged OutNo longer eligible based on patient's age to complete this topicIPV VaccinesAged OutNo longer eligible based on patient's age to complete this topicMeningococcal B VaccineAged OutNo longer eligible based on patient's age to complete this topicMeningococcal VaccineAged OutNo longer eligible based on patient's age to complete this topic Rotavirus VaccinesAged OutNo longer eligible based on patient's age to complete this topic Insurance Care Teams Team MemberRelationshipSpecialtyStart DateEnd Dominic Martinez MD [address] PCP - Lqhdonj71/2/22
== END 2025-04-26 07:00 | disposition home or self-care (01) ==
LOC: CARD 07:00
PROVIDERS: PCP Internal Medicine; Visit Provider Internal Medicine Interventional Cardiology
DX: I34.0 Nonrheumatic mitral (valve) insufficiency (principal)
CPT/HCPCS: 93306

== ENCOUNTER 2025-06-08 07:29 | Outpatient (OUT) | payer MEDICARE, OTHER, SELFPAY ==
--- OUTSIDE RECORDS SUMMARY | 2025-05-27 19:49 | XMS_ITS | Continuity of Care Document ---
Author Organization [facility] Address [address] [place] [address] Phone Care Team Providers Care Mental Health Assistant Name Role Phone Dominic Block MD Primary Care Provider [phone] Preston Tejada MD Attending Provider [phone] Dominic Callaway II, MD Attending Provider Care Teams Patient Care Team Team Status: Active Member Role/Relationship Status Yair Block MD Primary Care Provider Active Visit Care Team Team Status: Inactive Member Role/Relationship Status Yair Block MD Primary Care Provider Active St art: March 03, 2025 End: March 03, 2025Chana Gardner ProviderActiveStart: March 03, 2025 End: March 03, 2025 Visit Care Team Team Status: Inactive Member Role/Relationship Status Yair Block MD Primary Care Provider Active St art: March 04, 2025 End: March 04, 2025Chana Gardner ProviderActiveStart: March 04, 2025 End: March 04, 2025 Visit Care Team Team Status: Inactive Member Role/Relationship Status Yair Block MD Primary Care Provider Active St art: May 27, 2025 End: May 27, 2025Chana Petty II ProviderActiveStart: May 27, 2025 End: May 27, 2025 Visit Care Team Team Status: Inactive Member Role/Relationship Status Yair Block MD Primary Care Provider Active St art: May 27, 2025 End: May 27, 2025Chana Petty II ProviderActiveStart: May 27, 2025 End: May 27, 2025 Chief Complaint and Reason for Visit Chief Complaint Admit Date m54.50 March 03, 2025 5:20pm yearly follow up PLIF w/xray February 222024 11:18am OP SP LT KNEE PAIN May 27, 2025 2 :32pm M17.12 - Unilateral primary osteoarthrit is, left k May 27, 2025 2:46pm Reason for Visit Admit Date Lumbar stenosis with neurogenic claudica tion March 04, 2025 11:18am Spondylolisthesis of lumbar region Septe 2024 11:18am Primary osteoarthritis of left knee Dece 2024 2:32pm Allergies, Adverse Reactions, Alerts Allergen Type Severity Reaction Last Updated Verified Status No Known Allergies Allergy Unknown May 27, 2025 2:42pmYesActive Social History Smoking Status Status Start Date End Date Date of Observa tion Never smoked tobacco (finding) April 07, 2020 7:03am Observation Status Observation Response Date of Response Legal Sex Male (finding) [facility] [place] 1954 Family History Relationship Condition Age at Onset Recorded Date/T rosa father Sick sinus syndrome Unknown motherMalignant neoplasm of colonUnknownbrotherMalignant neoplasm of throat UnknownbrotherHeart diseaseUnknownbrotherHistory of heart surgeryUnknownHeart diseaseUnknownsisterFibromyalgiaUnknownHypertensionUnknownbrotherMalignant neoplasmUnknownHeart diseaseUnknownfatherHeart diseaseUnknownHistory of stroke UnknownDeceasedUnknownmotherMalignant neoplasmUnknownDeceasedUnknown Problems Active Problems Problem Diagnosis/Recorded Date Onset Date Status C omments Primary osteoarthritis of le ft knee May 24, 2025 4:31pm Unknown Active Spondylolisthesis of lumbar regionMar2023 1:59pmUnknownActiveLumbar stenosis with neurogenic claudicationSeptember 2024 11:44amUnknownActive Inactive/Resolved Problems Problem Diagnosis/Recorded Date Onset Date Status C omments Acquired spondylolisthesis of lumbosacral region April 03, 2018 7:35am Unknown Resolved Pro blem List clean-up per request of Phys. EHR Cmte Spinal stenosis of lumbar region with radiculopathy April 03, 2018 7:35am Unknown Resolved Problem List clean-up per request of Phys. EHR Cmte Screening for colorectal cancer April 15, 2017 6:34am Unknown Resolved Proble m List clean-up per request of Phys. EHR Cmte History of total right knee replacement April 08, 2020 3:19pm Unknown Resolved Probl em List clean-up per request of Phys. EHR Cmte Postoperative anemia due to acute blood loss April 08, 2020 3:19pm Unknown Resolved Pr oblem List clean-up per request of Phys. EHR Cmte GERD (gastroesophageal reflux disease) April 15, 2017 6:34am Unknown Resolved Proble m List clean-up per request of Phys. EHR Cmte Medications Medication Status Dose Units Route Directions Qty Days Refills S tart Date Stop Date End Date Reason(s) Instructions Adherence Diclofenac-Misoprostol 75-20 0 mg-mcg tablet,IR,delayed rel,biphasic Discontinued 1 TAB PO Twi ce daily April 14, 2017 11:00pmOctober 2017 3:41pmpainCetirizine (Zyrtec) 10 mg PyxsvkDeqegr43NCBCPvfviXbnmriq 2016 11:00pmallergies/itchingUnknown Alprazolam 0.25 mg tabletDiscontinued0.25MGPOTwice daily as needed for Anxiety April 14, 2017 11:00pmOctober 2017 1:56pmSimvastatin 20 mg tablet Bghvye78IIZTCeqzd at bedtimeOctober 2016 11:00pmhyperlipidemiaUnknown Acetaminophen (Acetaminophen Extra Strength) 500 mg GpsgdfMuwfnb0755NIKAFysvg daily as needed for PainOctober 2017 11:00pmOn Hold: Resume on 04/30/20. UnknownCalcium Carbonate (Calcium 600) 600 mg calcium (1,500 mg) TabletActive 1200MGPODailyOctober 2017 11:00pmUnknownGabapentin (Neurontin) 300 mg IoocvkxCxxuytdsbmbi848YAECJphwl times dailyOctober 2017 11:00pmOctober 2019 10:39amnerve painZolpidem (Ambien) 10 mg UcizokUeeqkf69DUQSYlbtk at bedtime as needed for SleepOctober 2017 11:00pmUnknownMv,Ca,Kee-Enau-Xh-Lycopene (Centrum Men) 8 mg iron- 200 mcg-600 mcg MljnimOutbgj2ZEMPHJujecTfwulti 2017 11:00pmUnknownCyclobenzaprine 10 mg nggdvcSowwnevebdgu66KVLBUlavp times daily as needed for back vhfzbe396Qgebnhu 2017 11:pmOctober 2019 10:39amCephalexin (Keflex) 500 mg bodinudQslxuvkzigto522GMDPB6Y735Ixegypi 2017 11:00pmOctober 2017 10:05amOxycodone (Roxicodone) 5 mg Tablet Discontinued1 - 7PJOCBA8V as needed for Fgjm866Durtlks 2017October 2019 10:40amSpinal stenosis of lumbar region with radiculopathy Spinal stenosis, lumbar region Radiculopathy, lumbar regionPrednisone 10 mg tablets,dose caaoBpkpzowgntnq5qgaw pkPOper package vgsaqstgvq914Kupcxnx 2017 11:pmOctober 2019 10:40am take 4 tabs for 3 days then take 3 tabs for 3 days then take 2 tabs for 3 days then take 1 tab for 3 daysMorphine (Ms Contin) 15 mg tablet extended release Qeotndaooncm96ROZKA78F as needed for Fuja6587Jiklmpf 2017October 2017 10:05amtake w/enough water to swallow whole; do not crush/dissolve/chew/cut/breakSennosides (Senna) 8.6 mg TabletDiscontinued8.6MGPO Twice daily as needed for ConstipationJuly 2017 11:00pmDecember 2024 2:43pmSulfamethoxazole-Trimethoprim (Bactrim) 400-80 mg HrpiqiDdhxfkjrjzfa5POPFD DailyOctober 2017 11:00pmOctober 2019 10:41amAlprazolam (Xanax) 0.25 mg TabletActive0.25MGPOTwice daily as needed for AnxietyOctober 2017 11:00pmOn Hold: Resume on 04/30/20.UnknownRivaroxaban (Xarelto) 15 mg (42)- 20 mg (9) tablets,dose wujrJipvbnjqrkan5EFwpb package azxfoofosf398Hmgfupv 21st, 2018 11:00pmMarch 24, 2020 10:41amPO PER PKG DIR must administer with evening mealIron Ps Tchjzzn-Y00-Tnyvv Acid (Poly-Iron 150 Forte) 150-25-1 mg-mcg-mg xqetxqjKxoztalshniv5SGKDCRmucj morningSept2019 11:00pmDece2024 2:43pmSildenafil (Viagra) 100 mg QleivsSudqgk091BLVLEkvws as needed for Sexual ActivitySe2019 11:00pmUnknownAscorbic Acid (Vitamin C) (Vitamin C) 250 mg Tablet,YmfmcwuxGfcfxv998MYFKUduqzQpixidqsr 30th, 2020 11:00pm UnknownDiclofenac Sodium 75 mg tablet,delayed release (DR/EC)Sopxucllozcv11GKYW Twice dailySe2019 11:00pmOct2019 10:07amCholecalciferol (Vitamin D3) (Vitamin D3) 50 mcg (2,000 unit) BfpzcuAdllgq9570RKTGIIIfqjm March 23, 2020 11:00pmUnknownGlucosamine-Chondroitin (Osteo Bi-Flex) 250- 200 mg QsugrmCnwohxqzhhxh3KHIGIMbswoEafvtowro 30th, 2020 11:00pmDece2024 2:42pmNut.Tx.Gluc.Intol,Lac-Free,Soy (Glucerna) QhvdhdBzyoqyrxrgke6WDWWVQ DailyMarch 23, 2020 11:00pmDece2024 2:43pmOmeprazole 20 mg capsule,delayed release(DR/EC)Crefuv69XQXGAecyyDgwyxhl 14th, 2020 11:00pmUnknown Diclofenac Sodium 75 mg tablet,delayed release (DR/EC)ActiveMGPODece2024 12:00amUnknownMetoprolol Tartrate 25 mg obvmftYrjqxk9UEKHCWaley daily May 27, 2025 12:00amFreeTextSi tablet with food Orally Twice a day; Note: Source Status: Taking; Provider: Terrell Johnston ( )Unknown Semaglutide (Ozempic) 1 mg/dose (4 mg/3 mL) pen injectorActiveMGSUBCUTDecember 2024 12:00amUnknown Medical Equipment Device Date Implanted Device Details ART SURF RT 10MM -12 GH April 07, 2020 Orthopaedic cement, non-medicatedOctober 2019UDI: ()[id number] Issuing Agency: [facility] Device Id: [id number] Expiration Date: 2024-04-23 Lot Number: [id number] cement, non-medicatedOctober 2019UDI: [id number] Issuing Agency: [facility] Device Id: [id number] Expiration Date: 2024-04-23 Lot Number: [id number] knee femur prosthesisOctober 2019UDI: ()[id number] Issuing Agency: [facility] Device Id: [id number] Expiration Date: 2029-10-21 Lot Number: [id number] knee tibia prosthesis, metallicOctober 2019 VALERIE: ()[id number] Issuing Agency: [facility] Device Id: [id number] Expiration Date: 2029-07-24 Lot Number: [id number] patella prosthesisOctober 2019UDI: ()[id number] Issuing Agency: [facility] Device Id: [id number] Expiration Date: 2027-08-22 Lot Number: [id number] 11MM PLIF LORDOTICOctober 2017ALLOGRAFT 11MM PLIF LORDOTICOctober 2017ALLOGRAFT 13MM 4DEGREES TLIFOctober 2017 OSTEOAMP GRANULES 10CCOctober 2017ROD 45MM CVD CAPLOX IIOctober 2017 PRAVEEN 55MM CVD CAPLOX IIOctober 2017SCREW 6.5 X 50MM CAPLOX IIOctober 2017SCREW 6.5 X 55MM CAPLOX IIOctober 2017SCREW 6.5 X 55MM CAPLOX II April 02, 2018SCREW 6.5 X 55MM CAPLOX IIOctober 2017SCREW 6.5 X 55MM CAPLOX IIOctober , 2017SCREW 6.5 X 55MM CAPLOX IIOctober 2017SCREW SET CAPLOX IIOctober , 2017SCREW SET CAPLOX IIOctober , 2017SCREW SET CAPLOX IIOctober 2017SCREW SET CAPLOX IIOctober , 2017SCREW SET CAPLOX II April 02, 2018SCREW SET CAPLOX IIOctober 2017 Procedures Procedure Date Performed Status XR lumbar spine AP/LAT/FLX/EXT March 03 4:20pm completed XR knee LT 4V* May 27, 2025 2:46pm comple chencho Relevant Diagnostic Tests and/or Laboratory Data Diagnostic Imaging Reports Author Jean Mason [facility] CenterReport Date/TimeDecember 2024 4:14pm [facility] [address] [place] [address] XRay Report Signed Patient: Marco Antonio Benitez MR#: [id number] : 1955 Acct:[id number] Age/Sex: 69 / M ADM Date: 5 [place] [facility] [place] Type: [facility] Attending Dr: Dominic Callaway II, MD Copies to: Dominic Callaway MD~ Ordering Provider: Dominic Callaway MD Date of Service: 05/27/25 XR/XR knee LT 4V*: M17.12 - Unilateral primary osteoarthritis, left knee LEFT KNEE - 4 views CLINICAL HISTORY: Left knee pain. No known injury. COMPARISON: Left knee 02/15/2022 FINDINGS: Moderate degenerative changes with medial weightbearing joint space narrowing. Minimal joint effusion. No acute bony process. XR/XR knee LT 4V* IMPRESSION: MODERATE DEGENERATIVE CHANGES INVOLVING THE LEFT KNEE WITHOUT ACUTE BONY PROCESS. Impression dictated by: Jean Mason Jr., DGiovanyOGiovany 05/27/2025 4:14 PM Dictation Location: [place] [address] Transcribed By: [facility] 05/27/25 1614 Dictated By: Jean Mason Jr, DO 05/27/25 1613 Signed By: <Electronically signed by Jean Mason Jr, DO in OV> 05/27/25 1614 Vital Signs Vital Reading Result Reference Range Collection Date/Time Weight 98.50 kg March 04, 2025 10:69ynCfhhym11 [in_i]May 27, 2025 2:96jdWpwucx67.61 kgDecember 2024 2:42pmBP Evqahcez060 mm[Hg]100-140December 2024 2:42pm BP Hkozqckov45 mm[Hg]60-100December 2024 2:42pmBMI (Body Mass Index)32.3 kg/r8Ahpkwcql2024 2:42pm Advance Directives Advance Directive Response Recorded Date/ Time Advance Directives Yes April 07, 2018 1:27pm Insurance Providers Guarantor Marco Antonio Benitez Address [address] [facility] [address]Ihmsqed Info.Home Phone: Coverage Status Update:2025 Payer Group Member ID Coverage Type Subscriber Relationship to Subscriber Effective Date Expiration Date [employer]MO [employer] Access [address] [address] [facility] [address] Work Phone: Id: [id number] J Kistler Id: [id number] [address] [facility] [address] Home Phone: Email: Romero [id number] BC/ROSANA [id number] Kistler , M Id: [id number] [facility] [address] Home Phone: Email: [email or web address] Encounters Encounter Location(s) Arrival/Admit Date Discharge/Departure Date Discharge/Departure Disposition Provider(s) Departed [facility] March 03, 2025 5:20pm March 03, 2025 5:21pm Discharged to home care or self care (routine discharge) Preston Tejada MD Departed Physician/ Provider Office Visit -[facility] Neurosurgery March 04, 2025 11:18am March 04, 2025 12:19pm Discharged to home care or self care (routine discharge) Preston Tejada MD Departed Physician/ Provider Office Visit -[facility] Orthopedics May 27, 2025 2:32pm May 27, 2025 3:43pm Discharged to home care or self care (routine discharge) Mic Cutler MD Departed Clinical -[facility] May 27, 2025 2:46pm May 27, 2025 2:47pm Discharged to home care or self care (routine discharge) Mic Cutler MD Recent Diagnosis Onset Date Admit Date Lumbar stenosis with neurogenic claudication Unk nown March 04, 2025 11:18am Spondylolisthesis of lumbar region Unknown March 04, 2025 11:18am Primary osteoarthritis of left knee Unknown May 27, 2025 2:32pm Assessments Diagnosis Onset Date Resolution Status Admit Date Lumbar stenosis with neurogenic claudica tion acuteSeptember 2024 11:18amSpondylolisthesis of lumbar regionacute March 04, 2025 11:18amPrimary osteoarthritis of left kneeacuteDecemb2024 2:32pm Plan of Treatment Author Preston Tejada [facility] CenterAuthoredptember 2024 11:44am Independently reviewed the plain x-ray of the lumbar spine and the report. The patient still has spondylosis and retrolisthesis at areas above his fusion. He has no gross abnormal movement with flexion and extension he still has fractures of his screw at S1 he appears to be fully fused he has no significant back pain he has no neurogenic claudication or leg pain he is doing well with full activity and working. At this point I will see him again in a year with another x-ray. He has done well Future Tests Future scheduled test information is unavailable Pending Tests Test Name Ordered Date Scheduled Date XR lumbar spine AP/LAT/FLX/EXT March 04 11:19am Future Visits Future appointment information is unavailable Future Procedures Future procedure information is unavailable Future Medications Future medication information is unavailable Patient Instructions Patient instructions are unavailable
--- OUTSIDE RECORDS SUMMARY | 2025-06-03 09:00 | XMS_ITS | Encounter Summary ---
Author Organization [facility] Address [address] [place] [address] Care Team Providers Care Cereal Chemist Name Role Phone Dominic Block MD Primary Care Provider [phone] Encounter Details DateTypeDepartmentCare Team (Latest Contact Info)Liqiuqxxcqr18/11/2025 9:00 AM ESTOffice Visit [facility] [address] [place] [address] Berry Fisher MD [address] [facility] [place] [address] Mixed hyperlipidemia (Primary Dx); Coronary artery disease due to lipid rich plaque; Benign hypertensive heart disease without congestive heart failure Social History Tobacco UseTypesPacks/DayYears UsedDateSmoking Tobacco: NeverSmokeless Tobacco: NeverAlcohol UseStandard Drinks/WeekCommentsYes0 (1 standard drink = 0.6 oz pure alcohol)occassionalUT Safety & EnvironmentAnswerDate RecordedFear of Current or Ex-PartnerNot on file08/15/2023Emotionally AbusedNot on file08/15/2023hysically AbusedNot on 08/15/2023Sexually AbusedNot on file08/15/2023hysically or Sexually AbusedNot on file08/15/2023Sex and Gender InformationValueDate Recorded Sex Assigned at CqinnOgfe70/05/2025 10:54 AM ESTLegal JtoCppc6112/20/2021 11:53 PM EDTGender WdgagkhdLdgn86/05/2025 10:54 AM ESTSexual OrientationHeterosexual or Gsvbtmqe87/05/2025 10:54 AM ESTdocumented as of this encounter Last Filed Vital Signs Vital SignReadingTime TakenCommentsBlood Msyxuwpa890/8206/03/2025 9:00 AM EST Psitc230606/03/2025 9:00 AM ESTTemperature--Respiratory Rate--Oxygen Gnbbtgycdi50% 06/03/2025 9:00 AM ESTInhaled Oxygen Concentration--Qgoxhy13.5 kg (215 lb) 06/03/2025 9:00 AM VTNAlcgzm240.7 cm (5' 8 )06/03/2025 9:00 AM ESTBody Mass Index32.6906/03/2025 9:00 AM ESTdocumented in this encounter Progress Notes * Berry Fisher MD - 06/03/2025 9:00 AM EST Images from the original note were not included. [facility] Note Chief Complaint: Patient here for 1 year follow up CAD, dyslipidemia, and Factor V Leiden. Had routine labs with lipid panel in Jan 2025. Had echo last month. Denies chest pain and SOB. Doing very well. HPI: Marco Antonio Benitez is a 69 y.o. male With a history of nonobstructive coronary artery disease, abnormalcoronary calcium CT score, dyslipidemia Doing well. No new symptoms Physically active at home. No exertional chest pain, no exertional chest pressure, no shortness of breath. Denies orthopnea, paroxysmal tunnel dyspnea, or worsening lower extremity edema. Update 06/03/2025: Denies new cardiovascular symptoms Cardiology ROS: Review of Systems Cardiovascular: Positive for leg swelling (resolves by morning). Respiratory: Positive for snoring. All other systems reviewed and are negative. Past Medical History He has a past medical history of Coronary artery disease, Diabetes mellitus (CMS/HCC), Factor V Leiden, Family history of premature CAD, Family history [...] , Rfl: atorvastatin (Lipitor) 80 mg tablet, TAKE 1 TABLET BY MOUTH AT BEDTIME, Disp: 90 tablet, Rfl: 3 cetirizine (ZyrTEC) [...] in the morning., Disp: , Rfl: semaglutide (Ozempic) 1 mg/dose (2 mg/1.5 mL) pen injector, Inject 1 mg under the skin 1 (one) timeper week., Disp: , Rfl: semaglutide (Rybelsus) 7 mg tablet, Take 7 mg by mouth once daily as directed., Disp: , Rfl: sildenafil (Viagra) 50 mg tablet, Take 50 mg by mouth if needed each day for erectile dysfunction.,Disp: , Rfl: zolpidem (Ambien) 5 mg tablet, Take 1 tablet by mouth if needed., Disp: , Rfl: Last Recorded Vitals BP 128/82 (BP Location: Right arm, Patient Position: Sitting) Pulse 70 Ht 1.727 m (5' 8 ) Wt 97.5 kg (215 lb) SpO2 97% BMI 32.69 kg/m?? Physical Examination: GENERAL: alert and oriented x3, [...] concentric and diffuse calcification throughout the length ofthe right coronary artery and small caliber distal [...] 70% Normal right ventricular size and systolic function Mildly increased left ventricular wall thickness Normal diastolic function No significant valvular abnormalities Lipid profile 02/11/2024: Triglyceride 63, cholesterol 126, HDL 48, LDL 65.4 Labs 03/2025: AST and ALT are normal Triglycerides 91, cholesterol 152, LDL 82.8, HDL 51 Echocardiogram 04/26/2025: Global left ventricular systolic function is normal; EF 55 to 60% Mild left ventricular hypertrophy Normal right ventricular size and systolic function Normal diastolic function No significant valvular dysfunction Normal right-sided pressures Assessment: 1. Coronary atherosclerosis I25.10: Atherosclerotic heart disease of [place] coronary artery without angina pectoris 2. Abnormal [...] V Leiden deficiency; did not recommend lifelong anticoagulation; they did not recommend OAC 4. Dyslipidemia E78.5: Hyperlipidemia, unspecified 5. Family history of premature coronary heart disease Z82.49: Family history of ischemic heart disease and other diseases of the circulatory system 6. Family history of sudden cardiac Z82.41: Family history of sudden cardiac 7. Diabetes mellitus E11.9: Type 2 diabetes mellitus without complications 8. Mild mitral and aortic valve regurgitation 9. Chronic venous insufficiency Plan: Continue current medical therapy including aspirin, high intensity statin therapy, and a beta-gunner Given LDL above target, will add Zetia 10 mg a day; will consider PCSK9 inhibitor Given (pre) diabetes mellitus and coronary artery disease, consider addition of an SGLT2 inhibitor in the form of Jardiance or Farxiga Given the duration of time since his cardiac catheterization, and his diabetes, as well as his known severe right coronary artery disease, I have recommended a treadmill Cardiolite stress test to evaluate for underlying ischemia Treat noncardiac comorbidities as clinically appropriate. Return to clinic in 1 year or sooner should problems arise Berry Fisher MD, MPH, [facility], [facility], [facility] Interventional Cardiology Pager Email: [email or web address] documented in this encounter Plan of Treatment NameTypePriorityAssociated DiagnosesOrder ScheduleHepatic function panelLab Routine Mixed hyperlipidemia Expected: 06/03/2025 (Approximate), Expires: 06/03/2026Lipid panelLabRoutine Mixed hyperlipidemia Expected: 06/03/2025 (Approximate), Expires: 06/03/2026Lexiscan Stress Myocardial Perfusion ImagingCardiac ServicesRoutine Coronary artery disease due to lipid rich plaque Expected: 06/03/2025 (Approximate), Expires: 06/03/2027documented as of this encounter Visit Diagnoses Diagnosis Mixed hyperlipidemia- Primary Coronary artery disease due to lipid rich plaque Benign hypertensive heart disease without congestive heart failure Benign hypertensive heart disease without heart failure documented in this encounter Care Teams Team MemberRelationshipSpecialtyStart DateEnd Date Dominic Block MD [address] PCP - Eyqdurz51/2/22documented as of this encounter
--- NOTE | 2025-06-08 07:00 | NM_ITS ---
Patient Name: BASILIO PARRA MR#: [id number] : 1955 Exam Date: 06/08/2025 Ordering Doctor: DR OTF FISHER M.D. RADIOLOGY REPORT PROCEDURE: NM OLIVIER PERF SPECT REST STR COMPARISON: None. INDICATIONS: CORONARY ARTERY DISEASE TECHNIQUE: Exam Description: Stress/Rest one day protocol gated SPECT Rest Imagin.1 mCi Tc-99m Cardiolite IV on 06/08/2025 Stress Imaging 30.5 mCi Tc-99m Cardiolite IV on 06/08/2025 Exercise Protocol: 0.4 mg Lexiscan given IV Heart Rate (bpm): Rest: 68 Max: 98 PMHR: 65 Blood Pressure: Rest: 127/80 Max: 145/82 Symptoms: Rest and peak stress ECG findings were pending, and the exercise portion of the study was pending per attending physician [facility]. For more details, please see separate cardiac stress test report. FINDINGS: QUALITY OF STUDY: Good PERFUSION DEFECT: LOCATION: N/A SIZE: N/A SEVERITY: N/A TYPE: N/A WALL MOTION: Normal wall motion LV SIZE: 107 mL. TID / TCD: 0.9 LVEF: Calculated EF 67%. SUMMARY: Myocardial perfusion imaging study is normal CONCLUSION: 1. Myocardial perfusion is normal with physiological apical thinning 2. Global ventricular systolic function is normal; ejection fraction is 67% 3. No significant transient ischemic dilatation Dictated by: Otf Fisher M.D. on 06/08/2025 at 14:28 Approved by: Otf Fisher M.D. on 06/08/2025 at 14:30
--- OUTSIDE RECORDS SUMMARY | 2025-06-08 07:33 | XMS_ITS | Encounter Summary ---
Author Organization [facility] Address [address] [place] [address] Care Team Providers Care Instructor [employer] Name Role Phone Dominic Block MD Primary Care Provider [phone] Jevon Last MD Unavailable [phone] Ron Hartley OD Unavailable [phone] Yudy Gupta QUANTITATIVE ASSOCIATE Unavailable [phone] Reason for Visit * ReasonOnset DateCommentsMed Tmhobu2306/03/2025 Encounter Details DateTypeDepartmentCare Team (Latest Contact Info)Qxjtftmlbms90/11/2025Refill [facility] Internal Medicine [address] [facility] [address] [place] [phone] Gretchen Lozano LPN Gastroesophageal reflux disease without esophagitis Social History Tobacco UseTypesPacks/DayYears UsedDateSmoking Tobacco: NeverSmokeless Tobacco: NeverAlcohol UseStandard Drinks/WeekCommentsYes1 (1 standard drink = 0.6 oz pure alcohol)Caffeine: 2 cups dailyPHQ-2AnswerDate RecordedPatient Health Questionnaire-2 Tsogv181Sex and Gender InformationValueDate RecordedSex Assigned at BirthNot on fileLegal DihYfxl3309/05/2022 7:06 PM EDTGender Identity Not on fileSexual OrientationNot on fileOccupationIndustryJob Start DateJob End Datebuild custom race enginesNot on fileNot on fileNot on filedocumented as of this encounter Plan of Treatment DateTypeDepartmentCare Team (Latest Contact Info)Fhkbxwmnulg09/28/2026 8:00 AM ESTOffice Visit [facility] [address] [place] [address] Jr. Eliezer Cardenas, DO [address] [place] [address] 08/25/2025 9:15 AM ESTOffice Visit [facility] [address] [place] [address] documented as of this encounter Visit Diagnoses Diagnosis Gastroesophageal reflux disease without esophagitis Esophageal reflux documented in this encounter Care Teams Team MemberRelationshipSpecialtyStart DateEnd Date Dominic Block MD [address] [place] [address] PCP - GeneralInternal Medicine11/16/22 Yudy Gupta QUANTITATIVE ASSOCIATE [address] [place] [address] PCP - [facility] Reach07/31/24 Jevon Last MD Referring PhysicianUrology01/28/24 Ron Hartley, OD [address] [place], [place] [id number] Referring PhysicianOptometry02/13/24 Mark Anthony Drake MD [address] [place] [address] Urology01/15/23 [facility] Cardiology02/13/24documented as of this encounter
--- OUTSIDE RECORDS SUMMARY | 2025-06-08 07:33 | XMS_ITS | Encounter Summary ---
Author Organization [facility] Address [address] [place] [address] Care Team Providers Care Activities Specialist Name Role Phone Dominic Block MD Primary Care Provider [phone] Jevon Last MD Unavailable [phone] Ron Hartley OD Unavailable [phone] Yudy Gupta PLATE DRYING MACHINE TENDER Unavailable [phone] Reason for Visit * ReasonCommentsMed Refill Encounter Details DateTypeDepartmentCare Team (Latest Contact Info)Hhyrqpnvnsk43/07/2025Refill [facility] Internal Medicine [address] [facility] [address] [place] [address] Dominic Block MD [address] [facility] [address] [place] [address] Gastroesophageal reflux disease without esophagitis Social History Tobacco UseTypesPacks/DayYears UsedDateSmoking Tobacco: NeverSmokeless Tobacco: NeverAlcohol UseStandard Drinks/WeekCommentsYes1 (1 standard drink = 0.6 oz pure alcohol)Caffeine: 2 cups dailyPHQ-2AnswerDate RecordedPatient Health Questionnaire-2 Pulcm579Sex and Gender InformationValueDate RecordedSex Assigned at BirthNot on fileLegal TwmWkmv4809/05/2022 7:06 PM EDTGender Identity Not on fileSexual OrientationNot on fileOccupationIndustryJob Start DateJob End Datebuild custom race enginesNot on fileNot on fileNot on filedocumented as of this encounter Miscellaneous Notes * Telephone Encounter - Roseann Garcia LPN - 05/31/2025 9:22 AM EST [facility] a [facility]ill on Pt's Omeprazole 20 mg. Dosage and Directions confirmed withlast office note and medication sent documented in this encounter Plan of Treatment DateTypeDepartmentCare Team (Latest Contact Info)Ebjghzqiumd01/28/2026 8:00 AM ESTOffice Visit [facility] [address] [place] [address] Jr. Eliezer Cardenas, DO [address] [facility] [address] [place] [address] 08/25/2025 9:15 AM ESTOffice Visit [facility] [address] [place] [address] documented as of this encounter Visit Diagnoses Diagnosis Gastroesophageal reflux disease without esophagitis Esophageal reflux documented in this encounter Care Teams Team MemberRelationshipSpecialtyStart DateEnd Dominic Martinez MD [address] [place] [address] PCP - GeneralInternal Medicine11/16/22 Yudy Gupta, PLATE DRYING MACHINE TENDER [address] [place] [address] PCP - ACO Reach07/31/24 Jevon Last MD Referring PhysicianUrology01/28/24 Ron Hartley, OD [facility] [place] [address] Referring PhysicianOptometry02/13/24 Mark Anthony Drake MD [address] [place] [address] Urology01/15/23 [facility] Cardiology02/13/24documented as of this encounter
--- OUTSIDE RECORDS SUMMARY | 2025-06-08 07:33 | XMS_ITS | Clinical Summary ---
Author Organization [facility] Address [address] [place] [address] Care Team Providers Care Acid Splicer Name Role Phone Dominic Block MD Primary Care Provider [phone] Allergies No known active allergies Medications MedicationSigDispense QuantityRefillsLast FilledStart DateEnd DateStatus ALPRAZolam (Xanax) 0.25 mg tablet Take 1 tablet by mouth in the morning.07/23/2019Active cetirizine (ZyrTEC) 10 mg tablet in the morning.04/15/2017Active diclofenac (Voltaren) 75 mg EC tablet Take 75 mg by mouth in the morning and at bedtime.04/16/2019Active omeprazole (PriLOSEC) [address] capsule Take 1 tablet by mouth in the morning.Active zolpidem (Ambien) 5 mg tablet Take 1 tablet by mouth if needed.07/23/2019Active cholecalciferol, vitamin D3, 50 mcg (2,000 unit) capsule Take 1 capsule by mouth in the morning.Active semaglutide (Ozempic) 1 mg/dose (2 mg/1.5 mL) pen injector Inject 1 mg under the skin 1 (one) time per week.Active sildenafil (Viagra) 50 mg tablet Take 50 mg by mouth if needed each day for erectile dysfunction.Active atorvastatin (Lipitor) 80 mg tablet Indications:Coronary artery disease due to lipid rich plaqueTake 1 tablet (80 mg) by mouth at bedtime. 90 tablet 5Active aspirin 81 mg EC tablet Indications:Coronary artery disease due to lipid rich plaqueTake 1 tablet (81 mg) by mouth once daily as directed. 90 tablet 5Active metoprolol succinate XL (Toprol-XL) 25 mg 24 hr tablet Indications:Benign hypertensive heart disease without congestive heart failure Take 1 tablet (25 mg) by mouth once daily as directed. 90 tablet 5Active ezetimibe (Zetia) 10 mg tablet Indications:Mixed hyperlipidemiaTake 1 tablet (10 mg) by mouth in the morning. 30 tablet 111516Active aspirin 81 mg EC tablet aspirin 81 mg tablet,delayed release TAKE 1 TABLET BY MOUTH EVERY DAY06/03/2025Discontinued(Reorder) semaglutide (Rybelsus) 7 mg tablet Take 7 mg by mouth once daily as directed.06/03/2025Discontinued metoprolol succinate XL (Toprol-XL) 25 mg 24 hr tablet Indications:Benign hypertensive heart disease without congestive heart failure TAKE 1 TABLET BY MOUTH EVERY DAY DIRECTED 90 tablet 303//Discontinued(Reorder) atorvastatin (Lipitor) 80 mg tablet Indications:Coronary artery disease due to lipid rich plaqueTAKE 1 TABLET BY MOUTH AT BEDTIME 90 tablet 306/24/Discontinued(Reorder) Active Problems ProblemNoted DateDiagnosed DatePrimary osteoarthritis of left knee05/31/2025 History of total right knee brxwnntsygd98/02/2024ostoperative anemia due to acute blood loss05/25/2024Screening for colorectal zvftjo2305/25/2024Spinal stenosis of lumbar region with /02/2024Essential (primary) pxkggoznwztx74/28/202312/12/20220821Grmkwhtprf92/29/202312/rimary osteoarthritis involving multiple /ure zsotuvbplbgopwsizjau23/29/202312/12/2022Factor V Aweglb1505/25/2022History of DVT (deep vein thrombosis)05/25/2022rostate etvnnx6911/23/2021Hyperlipidemia 01/15/2021oronary cyxstqlcjxawoojs91/21/2021History of malignant neoplasm of arwtgrjo08/20/2021rtificial knee joint rlxotzd6604/14/2020Morbid obesity 01/11/2020Obesity, Class II, BMI 35-39.9107/22/2018Foot drop, left02/20/2018 Peroneal nerve palsy, left02/20/20185583Xhevjexcgznax76/30/2018Vitamin D deficiency 01/07/2018Acquired rdkddhrnktwkyqzqw57/21/2907Jhkfpqpt84/12/2017Generalized anxiety qbomhvou27/22/2017Allergic duogtkao81/16/2017Chronic idiopathic kohqwpspb13/16/2017Gastroesophageal reflux hasygfx3407/09/2016Prediabetes 07/09/2016Primary psatbbkztkgrii35/16/2017 Resolved Problems ProblemNoted DateDiagnosed DateResolved DateBackground befephtqzsc65/16/2021 05/31/2025 Encounters DateTypeDepartmentCare DyumUbxsmfenjyi75/11/2025 9:00 AM ESTOffice Visit [place] [address] [place] [address] Berry Fisher MD Mixed hyperlipidemia (Primary Dx); Coronary artery disease due to lipid rich plaque; Benign hypertensive heart disease without congestive heart mipekmj4504/26/2025 Orders Only [facility] [address] [place] [address] Provider, MD Ligia from Last 3 Months Family History Medical HistoryRelationNameCommentsSick sinus syndromeFatherpremature CADOther [...] and Gender InformationValueDate Recorded Sex Assigned at VhdsmIrne52/05/2025 10:54 AM ESTLegal TjyJzwz9512/20/2021 11:53 PM EDTGender YnsgjxogAocx78/05/2025 10:54 AM ESTSexual OrientationHeterosexual or Lppxrxfm61/05/2025 10:54 AM EST Last Filed Vital Signs Vital SignReadingTime TakenCommentsBlood Yhpkputq072/8206/03/2025 9:00 AM EST Nhpaq392906/03/2025 9:00 AM FYKJmmugbxwtes97.8 ??C (98.3 ??F)10/06/2021 8:27 AM EDTRespiratory Twtk048110/06/2021 8:25 AM EDTOxygen Qkxkhzqviw56%06/03/2025 9:00 AM ESTInhaled Oxygen Concentration--Kxvvds32.5 kg (215 lb)06/03/2025 9:00 AM EST Sagvcj755.7 cm (5' 8 )06/03/2025 9:00 AM ESTBody Mass Index32.6906/03/2025 9:00 AM EST Plan of Treatment Health MaintenanceDue DateLast DoneCommentsCT Tkkvgecwluvn1955FIT-DNA 1955FIT1955FOBT1955Medicare Annual Wellness (AWV)1955 Gxbnqlipxyrop1955Depression Kbhldlzbb61/16/1967Fall Risk Screening 2020Pneumococcal Vaccine: 50+ Years (2 of 2 - PCV) Diabetes: Hemoglobin A1C3COVID-19 Vaccine ( season), 04/14/2023, 04/15/2021, Additional history exists Tnsvfzbhjzo83Colorectal Cancer Fzmtcctiy57/23/2027dult Prayvqg19Zoster QjmyctdlWidssvpwc42/12/2021, 04/02/2021, 01/02/2017Influenza HgqvdsjMjcaauniz30/12/2025, 04/08/2024, 04/14/2023, Additional history existsHIB VaccinesAged OutNo [...] to complete this topic Procedures Procedure NamePriorityDate/TimeAssociated DiagnosisCommentsCOMPLETE TRANSTHORACIC ECHO (TTE) W/WO IMAGING AGENT, STRAIN, 3D, BUBBLE STUDYRoutine 04/26/2025 1:18 PM ESTfrom Last 3 Months Results * Complete Echo (TTE) w/wo Imaging Agent, Strain, 3D, Bubble Study (04/26/2025 1:18 PM EST)Anatomical RegionLateralityModalityUltrasound Narrative Authorizing ProviderResult TypeResult StatusHistorical Provider MDCV ECHO PROCEDURESFinal Result from Last 3 Months Insurance Care Teams Team MemberRelationshipSpecialtyStart DateEnd Dominic Block MD [address] [facility]05/25/22
--- OUTSIDE RECORDS SUMMARY | 2025-06-08 07:33 | XMS_ITS | Clinical Summary ---
Author Organization [facility] Address [address] [place] [address] Phone Care Team Providers Care Rn Peritoneal Dialysis Name Role Phone Dominic Block MD Primary Care Provider Social History Tobacco UseTypesPacks/DayYears UsedDateSmoking Tobacco: Never AssessedSex and Gender InformationValueDate RecordedSex Assigned at BirthNot on fileLegal Sex Male05/19/2022 4:15 AM ESTGender IdentityNot on fileSexual OrientationNot on file Plan of Treatment Not on file Care Teams Team MemberRelationshipSpecialtyStart DateEnd Date Dominic Block MD [address] [place] [address] [facility]20
--- OUTSIDE RECORDS SUMMARY | 2025-06-08 07:33 | XMS_ITS | Clinical Summary ---
Author Organization [facility] Address [address] [place] [address] Care Team Providers Care Dish Up Person Name Role Phone Annette Shah MD Primary Care Provider [phone] Jevon Last MD Unavailable [phone] Ron Hartley OD Unavailable [phone] Yudy Gupta RN HOME HEALTH Unavailable [phone] Allergies No known active allergies Medications [...] 81 mg by mouth in the morning.Active semaglutide (Ozempic, 1 MG/DOSE,) 4 MG/3ML solution pen-injector Indications:Controlled type 2 diabetes mellitus with complication, with long- term current use of insulin ([facility]),BMI 32.0-32.9,adultInject 1 mg under the skin 1 (one) time per week 3 mL 1105Active diclofenac (Voltaren) 75 MG EC tablet Indications:Primary generalized (osteo)arthritisTAKE 1 TABLET BY MOUTH WITH FOOD OR MILK TWICE DAILY 180 tablet 5Active Cholecalciferol (Vitamin D) 50 MCG (1999 UT) capsule Indications:Vitamin D deficiencyTake 2 capsules (100 mcg) by mouth Daily 5Active sildenafil (Viagra) 100 MG tablet Indications:Erectile dysfunction, unspecified erectile dysfunction typeTake 1 tablet (100 mg) by mouth if needed for erectile dysfunction 30 tablet 5Active omeprazole (PriLOSEC) [address] capsule Indications:Gastroesophageal reflux disease without esophagitisTake 1 capsule (20 mg) by mouth Daily 90 capsule 5Active omeprazole (PriLOSEC) [address] capsule Indications:Gastroesophageal reflux disease without esophagitisTAKE 1 CAPSULE BY MOUTH EVERY DAY 90 capsule Discontinued omeprazole (PriLOSEC) [address] capsule Indications:Gastroesophageal reflux disease without esophagitisTAKE 1 CAPSULE BY MOUTH EVERY DAY 90 capsule Discontinued(Reorder) Active Problems ProblemNoted DateDiagnosed DateAllergic mvhwujvy46/29/2023oronary artery disease involving ambler coronary artery of ambler heart without angina pectoris 11/19/2022astroesophageal reflux disease without wcewoyytqbf07/29/2023 Generalized anxiety kupqnopv09/29/2023ure qjimlfffawilgeqfhioi83/29/2023rimary /29/2023Osteopenia of multiple sites11/19/20229514Fqlqdcuwftw58/29/2023 Primary osteoarthritis involving multiple hhzdch2911/19/2022Spondylolisthesis of lumbar rpdvjw4811/19/2022Vitamin D vvkuqrbgnf92/29/2023Factor V Leiden ([facility]) 05/25/2022History of DVT (deep vein thrombosis)05/25/2022History of malignant neoplasm of naqivalx32/20/2021 Resolved Problems ProblemNoted DateDiagnosed DateResolved DateBackground fbfixtrrnlo70/29/2023 01/18/2023hronic idiopathic rdmbjlfvw11rostate cancer Encounters DateTypeDepartmentCare WgbcZatbyldctmc49/11/2025Refill [facility] [address] [place] [phone] Gretchen Lozano LPN Gastroesophageal reflux disease without llkqcmrqyre48/07/2025Refill [facility] [address] [place] [phone] Annette Shah MD Gastroesophageal reflux disease without rhkjkbawven43/10/2025Refill [facility] [address] [place] [address] Apryl Washington LPN Erectile dysfunction, unspecified erectile dysfunction type04/26/2025Orders Only [facility] [address] [place] [phone] Unallocated, [facility] MD Wilber 04/26/2025linisync Result Encounter [facility] External Department Unsolicited Provider, Generic External Data from Last 3 Months Immunizations ImmunizationAdministration DatesNext DueInfluenza, High Dose Seasonal, Preservative Free04/04/2025Influenza, Seasonal, Quadrivalent, Adjuvanted 04/14/2023,04/14/2022,04/02/2021Influenza, injectable, quadrivalent, preservative free03/22/2020,05/25/2019,03/17/2018Influenza, seasonal, injectable, preservative free03/24/2018,05/19/2016Influenza, trivalent, cuhyceweqn60/16/2024Moderna SARS-CoV-2 Pvzpgrodxaz32/24/2021,08/18/2020 Pneumococcal Polysaccharide IWMJ9187SV, recombinant, protein subunit RSVpreF, adjuvant reconstitu, 120mcg/0.5mL, PF (Arexvy)05/26/20239829GDMT-XJO-9 (COVID-19) vaccine, mRNA, spike protein, LNP, PF, wellington-sucrose, 30 mcg/0.3 mL 04/08/2024,04/14/20238858WJEM-NjE-5, Ndplsemiugm70/05/2021,09/14/2020,08/18/2020Tdap 02/03/2018Zoster, Znoutgarhkf43/12/2021,04/02/2021Zoster, live01/02/2017 Family History Medical HistoryRelationNameCommentsCancerBrother 1BobHeart diseaseBrother 2Bill Heart diseaseBrother 3TomHypertensionBrother 3TomHeart diseaseFatherStrokeFather CancerMotherMotherMuscular dystrophySonRelationNameStatusCommentsBrother 1Bob Brother 2BillBrother 3TomFatherDeceasedMotherMotherDeceasedSon Social History Tobacco UseTypesPacks/DayYears UsedDateSmoking Tobacco: NeverSmokeless Tobacco: NeverAlcohol UseStandard Drinks/WeekCommentsYes1 (1 standard drink = 0.6 oz pure alcohol)Caffeine: 2 cups dailyPHQ-2AnswerDate RecordedPatient Health Questionnaire-2 Gpkkg337Sex and Gender InformationValueDate RecordedSex Assigned at BirthNot on fileLegal TcpYztc4709/05/2022 7:06 PM EDTGender Identity Not on fileSexual OrientationNot on fileOccupationIndustryJob Start DateJob End Datebuild custom race enginesNot on fileNot on fileNot on file Last Filed Vital Signs Vital SignReadingTime TakenCommentsBlood Ppworide579/7209 9:12 AM EDT Zlmjw913102/23/2025 9:12 AM IWTLecymkelnjw23.3 ??C (97.4 ??F)11/20/2024 5:20 PM EDTRespiratory Rate--Oxygen Psswwieexp56%02/23/2025 9:12 AM EDTInhaled Oxygen Concentration--Bpyzuk42.8 kg (220 lb)02/23/2025 9:12 AM ZRVFhcijw531.7 cm (5' 8 )02/23/2025 9:12 AM EDTBody Mass Index33.4509 9:12 AM EDT Plan of Treatment DateTypeDepartmentCare Team (Latest Contact Info)Dgtxulgaiob94/28/2026 8:00 AM ESTOffice Visit [facility] [address] [place] [phone] Jr. Yeimi Cardenas, DO [address] [place] [address] 08/25/2025 9:15 AM ESTOffice Visit [facility] [address] [place] [address] Health MaintenanceDue DateLast DoneCommentsCT Ezhlnhssvfmn1955FIT-DNA 1955FIT1955FOBT1955 2112Vkwofpbvuphmu1955Pneumococcal Vaccine: 65+ Years (2 of 2 - PCV)/1Diabetes: Hemoglobin A1C /, 01/19/2022, 01/16/2021, Additional history existsDiabetes: Urine Protein Umxmgxico88/06/720072/11/2023, 07/22/2022, 3COVID-19 Vaccine ( season)/, 04/14/2023, 04/15/2021, Additional history existsDiabetes: Retinopathy Knjoltrkg42/07/237156/12/2023, 2019Medicare Annual Wellness (AWV)609/07/2024, 01/23/2023 Yhbcpqprama19/23/202710/Colorectal Cancer Lkcowuigz70/23/2027Influenza RmkuxkzWqkyeawzr97/12/2025, 04/08/2024, 04/14/2023, Additional history exists Procedures Procedure NamePriorityDate/TimeAssociated DiagnosisCommentsTRANSTHORACIC ECHO (TTE) IUQONHNBLqfaild62/03/2025 2:53 PM ESTCA ECHO DOPPLER XVJUJGCT29/08/2024 12:54 PM EST ALBUMIN, URINE, ONMSQKIsooubv35/06/2024 8:38 AM ESTHEMOGLOBIN Z7WFgvjabt 07/21/2022 COLOR FUNDUS PHOTOGRAPHY - OU - BOTH AGIKEinrozg53/16/2019 12:00 PM EST ASHKVOXQUJSSvohkpm25/23/2017 12:00 PM EDT from Last 3 Months or Most Recently Relevant to Health Maintenance Results * Transthoracic echo (TTE) complete (04/26/2025 2:53 PM EST)Anatomical Region LateralityModalityHeartUltrasound Narrative Authorizing ProviderResult TypeResult StatusNoms Provider Unallocated MDCV ECHO PROCEDURESFinal Result * CA ECHO DOPPLER COMPLETE (04/26/2025 12:54 PM EST)Anatomical RegionLaterality ModalityOtherSpecimen (Source)Anatomical Location / LateralityCollection Method / VolumeCollection TimeReceived Time04/26/2025 12:54 PM EST Narrative 04/26/2025 12:55 PM EST [facility] ?[address] ? [place] [address] ? Cardiology Report ? Signed ? Patient: GILBERTO PARRA ?MR#: [id number] ?? : 1955 ?Acct:[id number] ?? Age/Sex: 69 / M ?ADM Date: 04/26/25 ?? Loc: CARD ? Attending Dr: Berry Root M.D. ? Ordering Physician: Berry Root M.D. ?? Date of Service: 04/26/25 ?? Procedure(s): CA echo doppler complete ?? Accession Number(s): [id number] ? cc: Berry Root M.D.; ANNETTE SHAH ? Patient Name: ? GILBERTO PARRA ? MR#: [id number] ? : 1955 ? Exam Date: 04/26/2025 ?? Ordering Doctor: DR EHAB ELTAHAWY M.D. ? ECHOCARDIOGRAM REPORT ? PROCEDURE: ? CA ECHO DOPPLER COMPLETE ? INDICATIONS: ? Mitral valve regurgitation ? COMPARISON: ? None. ? DESCRIPTION: ? COMPLETE ECHOCARDIOGRAM Real-time transthoracic ?? echocardiography with 2D, M-mode, spectral and color flow Doppler performed. ? QUALITY: ? Technical quality was good. ? LEFT VENTRICLE: ? Normal chamber size. Mild concentric left ventricular ?? hypertrophy. ??Estimated left ventricular ejection fraction is 55-60% ?? LV EF: Normal left ventricular ejection fraction, (>55%). DIASTOLIC: ? Normal diastolic function. ?? ATRIAL SEPTUM: ? Visually appears intact. ?? LEFT ATRIUM: ? Normal chamber size. ?? RIGHT ATRIUM: ? Normal chamber size. ?? RIGHT VENTRICLE: ? Normal chamber size. Normal right ventricular systolic ?? function. ? TRICUSPID VALVE: ? Normal mobility and thickness. No stenosis with no ?? regurgitation. No evidence of pulmonary hypertension. RVSP 18 mmHg ? MITRAL VALVE: ? Mildly thickened with normal mobility. ?? No evidence of ?? mitral valve stenosis. ??There is no mitral annular calcification. No mitral ?? regurgitation. ? AORTIC VALVE: ? Normal trileaflet appearance. No visible sclerosis. ??Normal ?? leaflet mobility. ??No evidence of aortic valve stenosis. No aortic ?? regurgitation. ? AORTIC ROOT: ? Normal diameter and appearance, measuring 3.5 cm. ? PULMONIC VALVE: ? Normal thickness and mobility. No stenosis. Trivial ?? regurgitation. ? PERICARDIUM: ? No evidence of pericardial effusion. ? IVC: ? Collapses with inspirations. IVC is normal in size. ? PLEURA: ? CONCLUSION: ? 1. Mild concentric left ventricular hypertrophy with normal systolic function. ?? Estimated LVEF is 55 to 60%. ?? 2. Normal right ventricular size and systolic function. ?? 3. Normal diastolic function. ?? 4. No significant valvular dysfunction. ?? 5. Normal right-sided pressures. ? Adult Echocardiography Procedure Report ?? Left Ventricle ?? LVEDD (3.7 - 5.6 cm): ? 4.61 cm ?? LVESD (2.2 - 4.0 cm): ? 3.72 cm ?? LVIVS thickness (0.6 - 1.2 cm): ? 1.05 cm ?? LVPW thickness (0.5 - 1.0 cm): ? 1.26 cm ?? e': ? 0.08 m/s ?? E - e': ? 6.39 ?? LVOT Max Gradient: ? 1.40 mm[Hg] ?? LVOT Area (cm2): ? 0.59 m/s ?? Peak Velocity (LVOT): ? 0.59 m/s ?? Mean Velocity (LVOT): ? 0.39 m/s ?? LVOT Diameter ? 2.59 cm ?? Left Ventricular Ejection Fraction: ? 55-60 % ?? Left Atrium ?? LA Volume Index (2D A2C): ? 27.47 ml/m2 ?? Left Atrium Systolic Dimension: ? 3.92 cm ?? Mitral Valve ?? MV E to A Ratio: ? 0.66 ?? Mitral Valve A-Wave Peak Velocity: ? 0.75 m/s ?? Mitral Valve E-Wave Peak Velocity: ? 0.50 m/s ?? Right Ventricle ?? Aorta ?? AO Root Diam: ? 3.51 cm ?? Aortic Valve ?? AoV Area (Peak Con): ? 3.40 cm2, 3.40 cm2 ?? AoV Area (VTI): ? 3.66 cm2, 3.66 cm2 ?? Peak Velocity(Antegrade Flow): ? 0.92 m/s ?? Peak Gradient(Antegrade Flow): ? 3.36 mm[Hg] ?? Mean Velocity(Antegrade Flow): ? 0.61 m/s ?? Mean Gradient(Antegrade Flow): ? 1.70 mm[Hg] ?? Velocity Time Integral: ? 19.59 cm ?? Tricuspid Valve ?? Peak Velocity (Regurgitant Flow): ? 1.94 m/s ?? Pulmonic Valve ?? Mean Gradient: ? 2.61 mm[Hg] ?? Mean Velocity: ? 0.73 m/s ?? Peak Velocity: ? 1.32 m/s ?? Peak Gradient: ? 6.92 mm[Hg] ?? Right Atrium ?? Right Atrium Systolic Pressure: ? 48.73 ml, 48.73 ml ? Dictated by: Yeimi Hollins M.D. on 04/26/2025 at 12:50 ? Approved by: Yeimi Hollins M.D. on 04/26/2025 at 12:54 ? Dictated By: ?YEIMI HOLLINS ? Signed By: ?04/26/255 ? DD/ 1254 ? TD/TT: ? Windshield Repair Technician: Procedure Note Radiology, RadiologistMD - 04/26/2025 [place] [address] Cardiology Report Signed Patient: GILBERTO PARRA JMR#: [id number] : 1955ct:[id number] Age/Sex: 69 / MADM Date: 04/26/25 Loc: CARD Attending Dr: Berry Root M.D. Ordering Physician: Berry Root M.D. Date of Service: 04/26/25 Procedure(s): CA echo doppler complete Accession Number(s): [id number] cc: Berry Root M.D.; ANNETTE SHAH Patient Name: GILBERTO PARRA MR#: [id number] : 1955 Exam Date: 04/26/2025 Ordering Doctor: DR BERRY ROOT M.D. ECHOCARDIOGRAM REPORT PROCEDURE: CA ECHO DOPPLER COMPLETE INDICATIONS: Mitral valve regurgitation COMPARISON: None. DESCRIPTION: COMPLETE ECHOCARDIOGRAM Real-time transthoracic echocardiography with 2D, M-mode, spectral and color flow Dopplerperformed. QUALITY: Technical quality was good. LEFT VENTRICLE: Normal chamber size. Mild concentric left ventricular hypertrophy. Estimated left ventricular ejection fraction is 55-60% LV EF: Normal left ventricular ejection fraction, (>55%). DIASTOLIC: Normal diastolic function. ATRIAL SEPTUM: Visually appears intact. LEFT ATRIUM: Normal chamber size. RIGHT ATRIUM: Normal chamber size. RIGHT VENTRICLE: Normal chamber size. Normal right ventricularsystolic function. TRICUSPID VALVE: Normal mobility and thickness. No stenosis with no regurgitation. No evidence of pulmonary hypertension. RVSP 18 mmHg MITRAL VALVE: Mildly thickened with normal mobility. No evidence of mitral valve stenosis. There is no mitral annular calcification. Nomitral regurgitation. AORTIC VALVE: Normal trileaflet appearance. No visible sclerosis.Normal leaflet mobility. No evidence of aortic valve stenosis. No aortic regurgitation. AORTIC ROOT: Normal diameter and appearance, measuring 3.5 cm. PULMONIC VALVE: Normal thickness and mobility. No stenosis. Trivial regurgitation. PERICARDIUM: No evidence of pericardial effusion. IVC: Collapses with inspirations. IVC is normal in size. PLEURA: CONCLUSION: 1. Mild concentric left ventricular hypertrophy with normal systolicfunction. Estimated LVEF is 55 to 60%. 2. Normal right ventricular size and systolic function. 3. Normal diastolic function. 4. No significant valvular dysfunction. 5. Normal right-sided pressures. Adult Echocardiography Procedure Report Left Ventricle LVEDD (3.7 - 5.6 cm): 4.61 cm LVESD (2.2 - 4.0 cm): 3.72 cm LVIVS thickness (0.6 - 1.2 cm): 1.05 cm LVPW thickness (0.5 - 1.0 cm): 1.26 cm e': 0.08 m/s E - e': 6.39 LVOT Max Gradient: 1.40 mm[Hg] LVOT Area (cm2): 0.59 m/s Peak Velocity (LVOT): 0.59 m/s Mean Velocity (LVOT): 0.39 m/s LVOT Diameter 2.59 cm Left Ventricular Ejection Fraction: 55-60 % Left Atrium LA Volume Index (2D A2C): 27.47 ml/m2 Left Atrium Systolic Dimension: 3.92 cm Mitral Valve MV E to A Ratio: 0.66 Mitral Valve A-Wave Peak Velocity: 0.75 m/s Mitral Valve E-Wave Peak Velocity: 0.50 m/s Right Ventricle Aorta AO Root Diam: 3.51 cm Aortic Valve AoV Area (Peak Con): 3.40 cm2, 3.40 cm2 AoV Area (VTI): 3.66 cm2, 3.66 cm2 Peak Velocity(Antegrade Flow): 0.92 m/s Peak Gradient(Antegrade Flow): 3.36 mm[Hg] Mean Velocity(Antegrade Flow): 0.61 m/s Mean Gradient(Antegrade Flow): 1.70 mm[Hg] Velocity Time Integral: 19.59 cm Tricuspid Valve Peak Velocity (Regurgitant Flow): 1.94 m/s Pulmonic Valve Mean Gradient: 2.61 mm[Hg] Mean Velocity: 0.73 m/s Peak Velocity: 1.32 m/s Peak Gradient: 6.92 mm[Hg] Right Atrium Right Atrium Systolic Pressure: 48.73 ml, 48.73 ml Dictated by: Yeimi Hollins M.D. on 04/26/2025 at 12:50 Approved by: Yeimi Hollins M.D. on 04/26/2025 at 12:54 Dictated By: YEIMI HOLILNS Signed By:04/26/25 1255 DD/ 1254 TD/TT: Windshield Repair Technician: Authorizing ProviderResult TypeResult StatusGeneric External Data Provider CLINISYNC IMAGINGFinal Result * Albumin, urine, random (07/30/2023 8:38 AM [...] < 7.0 ACTION SUGGESTED > 7.0EST AVG [id number] LEGACY EXTERNAL LABPERFORMING LAB:see noteNOMS LEGACY EXTERNAL LABComment:[facility] - [address] [place] [address] ,Ext. [phone] Specimen (Source)Anatomical Location / LateralityCollection Method / Volume Collection TimeReceived Time07/21/2022 Narrative Authorizing ProviderResult TypeResult StatusRobjuan Shah MDLAB BLOOD ORDERABLES Final ResultPerforming OrganizationAddressCity/State/ZIP CodePhone Number [facility] * Color Fundus Photography - OU - Both Eyes (2019 12:00 PM EST)Anatomical RegionLateralityModalityHeadFundus PhotographySpecimen (Source)Anatomical Location / LateralityCollection Method / VolumeCollection TimeReceived Time 2019 12:00 PM EST Narrative 07/21/2020 12:00 PM EST PERFORMED AT [facility] LOCATION:[id number] See scanned image Procedure Note CONVERSION, GENERIC - 11/07/2022 PERFORMED AT [facility] LOCATION:[id number] See scanned image Authorizing ProviderResult TypeResult Justice Shah MDOPHTH PHOTOGRAPHY Final Result * Colonoscopy (04/15/2017 12:00 PM EDT)Anatomical RegionLateralityModality EndoscopySpecimen (Source)Anatomical Location / LateralityCollection Method / VolumeCollection TimeReceived Time04/15/2017 12:00 PM EDT Narrative 04/16/2017 12:00 PM EDT PERFORMED AT [facility] LOCATION:[id number] internal hemorrhoids- Normal Procedure Note CONVERSION, GENERIC - 11/08/2022 PERFORMED AT [facility] LOCATION:[id number] internal hemorrhoids- Normal Authorizing ProviderResult TypeResult Justice Shah MDENDOSCOPY PROCEDURE ORDERABLESFinal Result from Last 3 Months or Most Recently Relevant to Health Maintenance Insurance Care Teams Team MemberRelationshipSpecialtyStart DateEnd Annette Shah MD [address] [place] [address] PCP - GeneralInternal Medicine11/16/22 Yudy Gupta RN HOME HEALTH [address] [place] [address] PCP - ACO Reach07/31/24 Jevon Last MD Referring PhysicianUrology01/28/24 Ron Hartley, OD [address] [place] [address] Referring PhysicianOptometry02/13/24 Mark Anthony Drake MD [address] [place] [address] Urology01/15/23 [facility]02/13/24
--- OUTSIDE RECORDS SUMMARY | 2025-06-08 07:33 | XMS_ITS | Clinical Summary ---
Author Organization [facility] Address [address] [place], [place] [address] Care Team Providers Care Residential Instructor Name Role Phone Dominic Block MD Primary Care Provider [phone] Allergies No known active allergies Medications MedicationSigDispense QuantityRefillsLast FilledStart DateEnd DateStatus cetirizine (ZYRTEC) 10 mg tablet Take 10 mg by mouth once daily.04/15/2017Active calcium carbonate (CALTRATE) 600 mg calcium (1,500 mg) tab Take 1 tablet by mouth once daily.03/26/2018Active omeprazole (PRILOSEC) 20 mg capsule Take 20 mg by mouth once daily.Active diclofenac, EC, (VOLTAREN) 75 mg EC tablet Take 1 tablet by mouth twice daily as needed.Active sildenafil (VIAGRA) 100 mg tablet Take 100 mg by mouth once daily.Active polyethylene glycol 3350 (MIRALAX, GLYCOLAX) 17 gram/dose powder Take by mouth once daily.Active docusate sodium (COLACE) 100 mg capsule Take 100 mg by mouth twice daily.Active zolpidem (AMBIEN) 5 mg tablet Take 1 tablet by mouth as needed.07/23/2019Active ALPRAZolam (XANAX) 0.25 mg tablet Take 1 tablet by mouth once daily.07/23/2019Active atorvastatin (LIPITOR) 80 mg tablet Take 80 mg by mouth daily at bedtime.Active metoprolol succinate 25 mg CSpX 11/18/2020ctive OZEMPIC 0.25 mg or 0.5 mg (2 mg/3 mL) pen Inject 0.25 mg subcutaneously one time a week.Active Active Problems ProblemNoted DateDiagnosed DateProstate jlyxoj392Obesity, Class II, BMI 35-39.9107/22/2018HyperlipidemiaHistory of DVT (deep vein thrombosis)Factor V Leiden Encounters DateTypeDepartmentCare LugvYfjgzvfrglq69/18/2025 Patient Msg Medical Records [address] [place] [address] Provider, Ccf Update for Our Medicare Patients Regarding Virtual Oiomdr1603/31/2025 9:30 AM EDT [facility] [address] [address] Delmy Sinclair MD Prostate cancer (HCC) (Primary Dx)03/30/20256650Hegubf03/06/2025 Patient Msg Medical Records [address] [place] [address] Provider, Ccf Important Notice for Our Medicare Patients Regarding Appointment Schedulingfrom Last 3 Months Social History Tobacco UseTypesPacks/DayYears UsedDateSmoking Tobacco: Never AssessedPHQ-2 AnswerDate RecordedPHQ-2 moqmx900rea Deprivation IndexAnswerDate RecordedNational Score (1-100), lower number is lower oiet790510/26/2022State Score (1-10), lower number is lower qrws6743Data from: https://www.neighborhoodatlas.medicine.[facility].edu/. Last address used for ysmhihrazzg[address] ANOWKVZI44/05/2023Sex and Gender InformationValueDate Recorded Sex Assigned at QbtxaZlpe81/13/2022 7:48 PM EDTLegal HdqXlpi11/02/2012 9:36 AM ESTGender OsqopsvcHcgq88/13/2022 7:48 PM EDTSexual OrientationNot on file Last Filed Vital Signs Vital SignReadingTime TakenCommentsBlood Vghskmxq139/7902 1:11 PM EST Qlveu062208/20/2019 1:11 PM ESTTemperature--Respiratory Rate--Oxygen Saturation-- Inhaled Oxygen Concentration--Dpwwug53.8 kg (215 lb 11.5 oz)11/22/2023 1:24 PM PNUKihbjk933.7 cm (5' 8 )11/22/2023 1:24 PM EDTBody Mass Index32.8011/22/2023 1:24 PM EDT Plan of Treatment DateTypeDepartmentCare Team (Latest Contact Info)Ujvwgfrfeht81/08/2026 8:00 [facility] [address] [address] Delmy Sinclair MD [address] [place] [address] 1 year follow up per chartHealth MaintenanceDue DateLast DoneCommentsAnxiety Vmuqmgtov11/16/1973Depression Pzcilqhyr89/16/1973Hepatitis C Tlxrotdvl06/16/1973 Lipid Dfvmyluiy12/16/1990CT Wlmwyhzuiacr35/16/2000Cologuard (FIT-DNA)2000 Fecal Occult Blood06/08/20004791Jmbgqotimfhop75/16/8986Oqmmzbzgzsn71/23/2018 04/15/2017Colorectal Cancer Ejxlcuufl89/23/2018Pneumococcal Vaccine: 50+ (2 of 2 - PCV)Medicare Annual Wellness Visit03/24/2023dvance Directive Iwjwwhmyeu60/01/2025ovid-19 Vaccine ( season)2025 04/08/2024, 04/14/2023, 04/15/2021, Additional history existsInfluenza Vaccine (#1), 04/14/2023, 04/14/2022, Additional history exists Diabetes Nzycvifku88/28/01324607/21/2022, 01/24/2000DTaP,Tdap,Td Vaccine (2 - Td or Tdap)Shingrix DjgtmelCnmbilsoy61/12/2021, 04/02/2021, 01/02/2017RSV PikprzfVggavxlrd76/03/2023 Procedures Procedure NamePriorityDate/TimeAssociated DiagnosisCommentsHEMOGLOBIN A1C 01/24/2000 9:42 AM EDT from Last 3 Months or Most Recently Relevant to Health Maintenance Results * HGB A1C (01/24/2000 9:42 AM EDT)ComponentValueRef RangeTest MethodAnalysis TimePerformed AtPathologist SignatureHemoglobin A1C5.24.0 - 6.0 %[facility] LABSpecimen (Source)Anatomical Location / LateralityCollection Method / VolumeCollection TimeReceived Time01/24/2000 9:42 AM EDT Narrative Authorizing ProviderResult TypeResult StatusRobert Cece Villa MDLABORATORYFinal ResultPerforming OrganizationAddressCity/State/ZIP CodePhone Number [facility] [address] [place] [address] from Last 3 Months or Most Recently Relevant to Health Maintenance Insurance Care Teams Team MemberRelationshipSpecialtyStart DateEnd Dominic Block MD [address] [place] [address] PCP - GeneralInternal Medicine02/21/18
--- OUTSIDE RECORDS SUMMARY | 2025-06-08 07:33 | XMS_ITS | Patient Health Record ---
[facility] Address [address] [address], [place] [address] Care Team Providers Care Disability Specialist Name Role Phone Jeffrey Quarles Unavailable [phone] Allergies No Known Allergies Reason For Referral No Information Medications Medication SIG (Take, Route, Frequency, Duration) Notes Start Date End Date Status Atorvastatin Calcium 80 MG Tablet Oral; Duration : 90 Days ActiveMetoprolol Succinate ER 25 MG Tablet Extended Release 24 HourOral; Duration: 90 DaysActiveOmeprazole 20 MG Capsule Delayed ReleaseOral; Duration: 90 DaysActiveDiclofenac Sodium 75 MG Tablet Delayed ReleaseOral; Duration: 90 DaysActiveOzempic (1 MG/DOSE) 4 MG/3ML Solution Pen-injectorSubcutaneous; Duration: 28 DaysActive Encounters Encounter Location Date Provider Diagnosis [facility] [address] [address], [place] [address] 05/10/2025 Jeffrey Quarles Onychocryptosis L60. 0 ; Toe pain, left M79.675 and Toe pain, right M79.674 Assessments Encounter Date Diagnosis (ICD Code) Assessment Notes Treatment Notes Treatment Clinical Notes Section Notes 05/10/2025 Onychocryptosis (ICD-10 - L60.0) Patient was seen and evaluated. I discussed surgical and continued nonsurgical options. I discussedrisks and benefits of repeat chemical matrixectomy given he has no history of infection since the intial chemical matrixectomy. He would like to think about these options and will call to schedule the procedure at a mutually agreeable time. I did remove the nail spicules today without need for anesthesia however this will likely be temporary but was happy with the plan. 05/10/2025Toe pain, left (ICD-10 - M79.675)05/10/2025Toe pain, right (ICD-10 - M79.674) Plan Of Treatment No Information Insurance Providers Payer Name Payer Address Payer Phone Subscriber Number Group Number Insured Name Patient Relationship to Insured Coverage Start Date Coverage End Date [employer] [place] [address] [place], [place] [address] [phone] [id number] Sonia Benitez - [facility] [address] [place], [place] [id number], [employer] - patient is the insured Medical (General) History Medical History History ICD Code Blood Clots Surgical History Surgery Date(Month/Year) Knee Replacement Midfoot Fusion
--- NOTE | 2025-06-08 09:06 | PC.NURSE ---
Lexiscan stress test completed. Pt tolerated well without symptoms. Walked down to cafeteria for breakfast.
[2025-06-08] MEDS: REGADENOSON 0.4 MG/5 ML SYRINGE IV (09:25)
--- NOTE | 2025-06-08 16:44 | PM.STRESS ---
Stress Test Stress Test Requesting physician: Berry Fisher Procedure: Vasodilator stress test General Information: Reason for Stress Test: [Evaluation of CAD] Cardiac History and Risk Factors: [Prior history of heart cath in 2020] Resting 12 - Lead Electrocardiogram: Sinus rhythm with normal intervals and normal R wave progression Stress Test: Protocol: Vasodilator stress test Lexiscan Exercise Capacity: 1 METS Blood Pressure Response: Baseline blood pressure of 127/80 mmHg and heart rate of 67 bpm to postinfusion maximum blood pressure noted of 145/82 mmHg and heart rate of 96 bpm achieving 65% age of the expected age predicted heart rate. Rhythm: Sinus rhythm ST - Response: No evidence of ischemia but occasional PVCs seen Patient Response: No symptoms endorsed Interpretation: 1. No evidence of ischemia noted on EKG 2. Nuclear perfusion study to be dictated separately
== END 2025-06-08 07:30 | disposition home or self-care (01) ==
LOC: NM 07:29
PROVIDERS: PCP Internal Medicine; Visit Provider Internal Medicine Interventional Cardiology
DX: I25.10 Atherosclerotic heart disease of native coronary artery without angina pectoris (principal); I25.83 Coronary atherosclerosis due to lipid rich plaque
CPT/HCPCS: 78452; 93017; A9500; J2785